=== PATIENT | female | born 1995 | race Caucasian/White ===

== ENCOUNTER 2016-08-05 18:09 | Emergency (ER) | payer BC, OTHER ==
[2016-08-05] MEDS ORDERED: HYDROmorphone 1 MG/ML 1 ML SYRINGE IVP STA ×2 (18:20→21:53)
[2016-08-05] MEDS ORDERED: SODIUM CHLORIDE 0.9% 1,000 ML IV STA (18:20)
[2016-08-05] MEDS ORDERED: ONDANSETRON 4 MG/2 ML VIAL IVP STA (18:20)
[2016-08-05 18:30] VITALS: TEMP 98.6
[2016-08-05 19:24] LABS: Basophils % (A) 0 %; CH 33.2; CHCM 34.2; Eosinophils # (A) 0.2 k/uL (0-0.7); Eosinophils % (A) 2 %; HCT 44.8 % (34.0-46.0); HDW 2.25; Luc # (Auto) 0.21; Luc % (Auto) 3; Lymphocytes # (A) 2.2 k/uL (1.0-4.8); Lymphocytes % (A) 29 %; MCH 32.6 pg (25.0-35.0); MCHC 33.5 g/dL (31.0-37.0); MCV 97.4 fL (80.0-100.0); Monocytes # (A) 0.4 k/uL (0-1.0); Monocytes % (A) 6 %; Neutrophils # (A) 4.7 k/uL (1.3-7.7); Neutrophils % (A) 61 %; RDW 12.1 % (11.5-15.5); WBC 7.7 k/uL (3.8-10.6); WBC (Perox) 7.31
[2016-08-05 19:37] LABS: ALT 50 U/L (9-52); AST 30 U/L (14-36); Alcohol <10 mg/dL; Alkaline Phosphatase 57 U/L (38-126); Anion Gap 13 mmol/L; Blood Urea Nitrogen 15 mg/dL (7-17); Calcium 9.5 mg/dL (8.4-10.2); Carbon Dioxide 19 mmol/L (22-30); Chloride 108 mmol/L (98-107); Glucose 115 mg/dL (74-99); Non-African American GFR(MDRD) >60 (>60 ml/min/1.73 sqM); Potassium 4.2 mmol/L (3.5-5.1); Sodium 140 mmol/L (137-145); Total Bilirubin 0.6 mg/dL (0.2-1.3); Total Protein 7.8 g/dL (6.3-8.2)
[2016-08-05 19:39] LABS: Partial Thromboplastin Time 22.6 sec (22.0-30.0); Prothrombin Time 10.3 sec (9.0-12.0)
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
[2016-08-05 21:27] VITALS: RESP 18
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
--- NOTE | 2016-08-05 21:47 | XR ---
EXAMINATION TYPE: XR pelvis AP view DATE OF EXAM: 08/05/2016 COMPARISON: NONE HISTORY: Pain TECHNIQUE: Single view FINDINGS: Pelvic ring is intact. Proximal femurs and hip joints are intact. Sacroiliac joints are nor mal. IMPRESSION: Normal exam. No fracture.
--- NOTE | 2016-08-05 21:48 | XR ---
EXAMINATION TYPE: XR lumbar spine 2 or 3V DATE OF EXAM: 08/05/2016 COMPARISON: NONE HISTORY: Pain TECHNIQUE: 3 views FINDINGS: Vertebra have normal spacing and alignment. Posterior elements are intact. Sacroiliac joint s are normal. IMPRESSION: Normal lumbar spine.
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
--- NOTE | 2016-08-05 21:50 | XR ---
EXAMINATION TYPE: XR chest 1V portable DATE OF EXAM: 08/05/2016 COMPARISON: 07/27/2012 HISTORY: Chest pain TECHNIQUE: Single frontal view of the chest is obtained. FINDINGS: Heart and mediastinum are normal. Lungs are clear. Diaphragm is normal. There are chest le ads. IMPRESSION: Normal chest.
[2016-08-05 22:06] VITALS: BP 137/89; PULSE 97
[2016-08-05 22:17] LABS: Appearance,Urine Turbid (Clear); Bilirubin,Urine 2+ (Negative); Glucose,Urine (UA) Negative (Negative); Ketones,Urine Negative (Negative); Leukocyte Esterase,Urine Trace (Negative); Nitrite,Urine Positive (Negative); PH, Urine 7.5 (5.0-8.0); Particle Count 12688; Protein,Urine Trace (Negative); RBC,Urine 11 /hpf (0-5); Squamous Epithelial Cell,Urine 1 /hpf (0-4); UA Billing (MACRO vs. MICRO) MICRO
== END 2016-08-05 22:59 | disposition home or self-care (01) ==
LOC: EC 18:09
DX: S16.1XXA Strain of muscle, fascia and tendon at neck level, initial encounter (principal); S06.0X1A Concussion with loss of consciousness of 30 minutes or less, initial encounter; S40.022A Contusion of left upper arm, initial encounter; M54.6 Pain in thoracic spine; M54.5 Low back pain; R11.2 Nausea with vomiting, unspecified; Z79.3 Long term (current) use of hormonal contraceptives; Z79.899 Other long term (current) drug therapy; Z88.1 Allergy status to other antibiotic agents; Z91.013 Allergy to seafood; Z91.018 Allergy to other foods; Z91.09 Other allergy status, other than to drugs and biological substances; V43.53XA Car driver injured in collision with pick-up truck in traffic accident, initial encounter; Y92.410 Unspecified street and highway as the place of occurrence of the external cause
CPT/HCPCS: 36415; 93005; 80053; 85025; 85610; 85730; 81001; 80306; 80320; 71010; 72070; 72100; 72170; 73060; 72125; 70450; 99285; 96374; 96375; 96376; 96361 ×3; J2405; J1170

== ENCOUNTER 2017-01-15 20:12 | Emergency (ER) | payer BC, OTHER ==
[2017-01-15 21:10] LABS: Amorphous Sediment,Urine Rare /hpf; Appearance,Urine Cloudy (Clear); Bacteria,Urine Rare /hpf; Bilirubin,Urine Negative (Negative); Glucose,Urine (UA) Negative (Negative); Ketones,Urine Trace (Negative); Leukocyte Esterase,Urine Large (Negative); Mucus,Urine Rare /hpf; Nitrite,Urine Negative (Negative); PH, Urine 6.5 (5.0-8.0); Particle Count 9741; Protein,Urine Trace (Negative); Specific Gravity,Urine 1.022 (1.001-1.035); Squamous Epithelial Cell,Urine 8 /hpf (0-4); UA Billing (MACRO vs. MICRO) MICRO; Urobilinogen,Urine <2.0 mg/dL (<2.0); WBC,Urine 5 /hpf (0-5)
[2017-01-15] MEDS ORDERED: SODIUM CHLORIDE 0.9% 1,000 ML IV ONE (21:11)
--- NOTE | 2017-01-15 21:12 | ED ---
General Adult HPI - General Chief complaint: Chest Pain Stated complaint: Chest Pain, Palpitations Time Seen by Provider: 01/15/17 20:40 Source: patient Mode of arrival: ambulatory Limitations: no limitations - History of Present Illness Initial comments: Patient is a 21-year-old nonsmoking female who presents to the emergency department today for evaluation of palpitations and sharp chest pain which is worse with inspiration. Patient reports that yesterday she noticed that she was very aware of her heart beat which is atypical for her, she does feel that she's been focusing on this and that today she reports it is 1 million times worse. She reports that she feels like her heart is beating irregularly, she states that she has checked her pulse by feeling her carotid pulse and feels that her pulse is irregular. This became very concerning for her and she began to feel that she is having some chest pain so she called her mother who brought her to the emergency department for evaluation. She has no per personal cardiac history, no history of PE or DVT, no known family history of coagulopathy area the patient is not a smoker she's had no recent immobilization or surgery. Patient does report a history of anxiety and panic attacks, however she states she doesn't feel that she's been anxious about anything prior to the start of these palpitations however she does admit that these palpitations are making her feel very anxious. She denies any recent URI symptoms. She denies any fevers, chills, nausea, vomiting, abdominal pain, change in bowel or bladder habits. - Related Data Home Medications Medication Instructions Recorded Confirmed Albuterol Inhaler [Ventolin 1 - 2 puff INHALATION RT-Q6H PRN 11/20/14 01/15/17 Inhaler] Albuterol Nebulized [Ventolin 2.5 mg INHALATION RT-QID PRN 08/05/16 01/15/17 Nebulized] ALPRAZolam [Xanax] 1 mg PO DAILY PRN 01/15/17 01/15/17 Altavera-28 1 tab PO HS 01/15/17 01/15/17 Allergies Allergy/AdvReac Type Severity Reaction Status Date / Time nickel Allergy Rash/Hives Verified 01/15/17 20:53 sulfamethoxazole Allergy Rash/Hives Verified 01/15/17 20:53 [From ] trimethoprim [From ] Allergy Rash/Hives Verified 01/15/17 20:53 corn AdvReac Diarrhea Verified 01/15/17 20:53 Review of Systems ROS Statement: Those systems with pertinent positive or pertinent negative responses have been documented in the HPI. ROS Other: All systems not noted in ROS Statement are negative. Constitutional: Denies: fever, chills Respiratory: Reports: dyspnea. Denies: cough, wheezes, hemoptysis, stridor Cardiovascular: Reports: chest pain, palpitations. Denies: dyspnea on exertion , orthopnea, edema, syncope Endocrine: Denies: fatigue Gastrointestinal: Denies: abdominal pain, nausea, vomiting Genitourinary: Reports: abnormal menses (Should start her menstrual cycle any time, concerned she may be ) Musculoskeletal: Denies: back pain Skin: Denies: rash, lesions Neurological: Denies: headache, weakness Psychiatric: Reports: anxiety Hematological/Lymphatic: Denies: easy bleeding, easy bruising Past Medical History Past Medical History: Asthma Additional Past Medical History / Comment(s): right ovarian cyst, collitus, R Overy twice the size as laft overy. Endomertriosis in the past and small part of uterus removed. Enlarged liver. History of Any Multi-Drug Resistant Organisms: None Reported Additional Past Surgical History / Comment(s): growth removed from right ovary and small amount of uterus remover due to pos endometrosis. Poly cycstic ovarian desease. Past Psychological History: Anxiety, Depression Smoking Status: Never smoker Past Alcohol Use History: Occasional Past Drug Use History: None Reported - Past Family History Mother Family Medical History: Asthma Father Family Medical History: Coronary Artery Disease (CAD), CVA/TIA Brother(s) Family Medical History: Asthma General Exam Limitations: no limitations General appearance: alert, in no apparent distress, anxious Head exam: Present: atraumatic, normocephalic Eye exam: Present: normal appearance, PERRL ENT exam: Present: normal exam, normal oropharynx, mucous membranes moist Neck exam: Present: normal inspection Respiratory exam: Present: normal lung sounds bilaterally, chest wall tenderness. Absent: respiratory distress, wheezes, rales, rhonchi, stridor, accessory muscle use, decreased breath sounds, prolonged expiratory Cardiovascular Exam: Present: regular rate, normal rhythm, normal heart sounds. Absent: tachycardia, irregular rhythm, systolic murmur, diastolic murmur, rubs , gallop, clicks, JVD, S3, S4 GI/Abdominal exam: Present: soft, normal bowel sounds. Absent: distended, tenderness, guarding, rebound, rigid, diminished bowel sounds, hyperactive bowel sounds, hypoactive bowel sounds Extremities exam: Present: normal inspection, full ROM, normal capillary refill. Absent: tenderness, pedal edema, joint swelling, calf tenderness Back exam: Present: normal inspection Neurological exam: Present: alert, oriented X3 Psychiatric exam: Present: anxious Skin exam: Present: warm, dry Course Vital Signs 01/15/17 01/15/17 01/15/17 20:34 21:48 23:05 Temperature 98.1 F Pulse Rate 93 77 81 Respiratory 18 16 16 Rate Blood Pressure 135/84 121/77 124/79 O2 Sat by Pulse 95 100 98 Oximetry 01/15/17 23:20 Temperature 97.9 F Pulse Rate Respiratory Rate Blood Pressure O2 Sat by Pulse Oximetry - Reevaluation(s) Reevaluation #1: Patient re-evaluated, resting comfortably. 01/15/17 23:09 Medical Decision Making - Medical Decision Making Patient was seen and evaluated, history is obtained from the patient Patient reports development of palpitations last night, progressively worsening today. Patient also has pleuritic chest pain which is worse with deep breath or coughing EKG reveals normal sinus rhythm, rate is 80, Reggie, no acute ST elevations or depressions. Of acute ischemia, infarction or arrhythmia. Patient was placed on telemetry monitoring IV access was obtained, troponin, d-dimer, TSH, CBC and BMP were ordered urinalysis urine drug screen and urine were ordered Patient Did admit to taking Xanax prior to arrival and she felt that there may be an anxiety component of her palpitations. Labs with no significant abnormalities, electrolyte abnormalities Troponin, d-dimer both negative, TSH within normal limits Chest x-ray with no acute findings Patient was reevaluated, she states that she felt palpitations and looked at the monitor, she felt that there was some irregularity on the monitor Telemetry monitoring throughout the ED stay was reviewed with no alarms or arrhythmias noted I was able to show the patient that any movement can trigger monitor alarms, patient expressed understanding of this and did admit that possibly turning over in the bed may have caused some of the abnormality that she saw the monitor. I again reassessed the patient that based on her EKG, chest x-ray and lab findings the low likelihood that she's having any acute cardiac or pulmonary cause of her palpitations. I advised her that she should avoid caffeine or any stimulants, she should practice controlled breathing and relaxation techniques, take Xanax as needed for anxiety and follow up with her primary care physician to discuss any persistent symptoms. I advised the patient and her mother bedside of the patient should return to the emergency department should she develop any worsening chest pain, shortness of breath, lightheadedness, diaphoresis or any signs or symptoms which she finds concerning. All questions pertaining care were answered to the best of my ability. Patient expressed understanding of care plan and was discharged home in stable condition. - Lab Data Result diagrams: 01/15/17 21:42 01/15/17 21:42 Lab Results 01/15/17 01/15/17 01/15/17 Range/Units 20:49 20:49 20:49 WBC (3.8-10.6) k/uL RBC (3.80-5.40) m/uL Hgb (11.4-16.0) gm/dL Hct (34.0-46.0) % MCV (80.0-100.0) fL MCH (25.0-35.0) pg MCHC (31.0-37.0) g/dL RDW (11.5-15.5) % Plt Count (150-450) k/uL Neutrophils % % Lymphocytes % % Monocytes % % Eosinophils % % Basophils % % Neutrophils # (1.3-7.7) k/uL Lymphocytes # (1.0-4.8) k/uL Monocytes # (0-1.0) k/uL Eosinophils # (0-0.7) k/uL Basophils # (0-0.2) k/uL D-Dimer (<0.60) mg/L FEU Sodium (137-145) mmol/L Potassium (3.5-5.1) mmol/L Chloride (98-107) mmol/L Carbon Dioxide (22-30) mmol/L Anion Gap mmol/L BUN (7-17) mg/dL Creatinine (0.52-1.04) mg/dL Est GFR (MDRD) Af Amer (>60 ml/min/1.73 sqM) Est GFR (MDRD) Non-Af (>60 ml/min/1.73 sqM) Glucose (74-99) mg/dL Calcium (8.4-10.2) mg/dL Magnesium (1.6-2.3) mg/dL Total Bilirubin (0.2-1.3) mg/dL AST (14-36) U/L ALT (9-52) U/L Alkaline Phosphatase (38-126) U/L Troponin I (0.000-0.034) ng/mL Total Protein (6.3-8.2) g/dL Albumin (3.5-5.0) g/dL TSH (0.465-4.680) mIU/L Urine Color Yellow Urine Appearance Cloudy H (Clear) Urine pH 6.5 (5.0-8.0) Ur Specific [place] 1.022 (1.001-1.035) Urine Protein Trace H (Negative) Urine Glucose (UA) Negative (Negative) Urine Ketones Trace H (Negative) Urine Blood Negative (Negative) Urine Nitrite Negative (Negative) Urine Bilirubin Negative (Negative) Urine Urobilinogen <2.0 (<2.0) mg/dL Ur Leukocyte Esterase Large H (Negative) Urine WBC 5 (0-5) /hpf Ur Squamous Epith Cells 8 H (0-4) /hpf Amorphous Sediment Rare H (None) /hpf Urine Bacteria Rare H (None) /hpf Urine Mucus Rare H (None) /hpf Urine HCG, Qual Not Detected (Not Detectd) Urine Opiates Screen Not Detected (NotDetected) Ur Oxycodone Screen Not Detected (NotDetected) Urine Methadone Screen Not Detected (NotDetected) Ur Propoxyphene Screen Not Detected (NotDetected) Ur Barbiturates Screen Not Detected (NotDetected) U Tricyclic Antidepress Not Detected (NotDetected) Ur Phencyclidine Scrn Not Detected (NotDetected) Ur Amphetamines Screen Not Detected (NotDetected) U Methamphetamines Scrn Not Detected (NotDetected) U Benzodiazepines Scrn Detected H (NotDetected) Urine Cocaine Screen Not Detected (NotDetected) U Marijuana (THC) Screen Not Detected (NotDetected) 01/15/17 01/15/17 01/15/17 Range/Units 21:42 21:42 21:42 WBC 7.1 (3.8-10.6) k/uL RBC 4.64 (3.80-5.40) m/uL Hgb 14.7 (11.4-16.0) gm/dL Hct 44.8 (34.0-46.0) % MCV 96.6 (80.0-100.0) fL MCH 31.6 (25.0-35.0) pg MCHC 32.8 (31.0-37.0) g/dL RDW 13.0 (11.5-15.5) % Plt Count 332 (150-450) k/uL Neutrophils % 53 % Lymphocytes % 36 % Monocytes % 6 % Eosinophils % 3 % Basophils % 1 % Neutrophils # 3.8 (1.3-7.7) k/uL Lymphocytes # 2.6 (1.0-4.8) k/uL Monocytes # 0.4 (0-1.0) k/uL Eosinophils # 0.2 (0-0.7) k/uL Basophils # 0.1 (0-0.2) k/uL D-Dimer 0.37 (<0.60) mg/L FEU Sodium 141 (137-145) mmol/L Potassium 4.5 (3.5-5.1) mmol/L Chloride 106 (98-107) mmol/L Carbon Dioxide 22 (22-30) mmol/L Anion Gap 13 mmol/L BUN 15 (7-17) mg/dL Creatinine 1.20 H (0.52-1.04) mg/dL Est GFR (MDRD) Af Amer >60 (>60 ml/min/1.73 sqM) Est GFR (MDRD) Non-Af 56 (>60 ml/min/1.73 sqM) Glucose 102 H (74-99) mg/dL Calcium 9.7 (8.4-10.2) mg/dL Magnesium 2.0 (1.6-2.3) mg/dL Total Bilirubin 0.2 (0.2-1.3) mg/dL AST 20 (14-36) U/L ALT 41 (9-52) U/L Alkaline Phosphatase 60 (38-126) U/L Troponin I (0.000-0.034) ng/mL Total Protein 7.7 (6.3-8.2) g/dL Albumin 4.5 (3.5-5.0) g/dL TSH 2.530 (0.465-4.680) mIU/L Urine Color Urine Appearance (Clear) Urine pH (5.0-8.0) Ur Specific [place] (1.001-1.035) Urine Protein (Negative) Urine Glucose (UA) (Negative) Urine Ketones (Negative) Urine Blood (Negative) Urine Nitrite (Negative) Urine Bilirubin (Negative) Urine Urobilinogen (<2.0) mg/dL Ur Leukocyte Esterase (Negative) Urine WBC (0-5) /hpf Ur Squamous Epith Cells (0-4) /hpf Amorphous Sediment (None) /hpf Urine Bacteria (None) /hpf Urine Mucus (None) /hpf Urine HCG, Qual (Not Detectd) Urine Opiates Screen (NotDetected) Ur Oxycodone Screen (NotDetected) Urine Methadone Screen (NotDetected) Ur Propoxyphene Screen (NotDetected) Ur Barbiturates Screen (NotDetected) U Tricyclic Antidepress (NotDetected) Ur Phencyclidine Scrn (NotDetected) Ur Amphetamines Screen (NotDetected) U Methamphetamines Scrn (NotDetected) U Benzodiazepines Scrn (NotDetected) Urine Cocaine Screen (NotDetected) U Marijuana (THC) Screen (NotDetected) 01/15/17 Range/Units 21:42 WBC (3.8-10.6) k/uL RBC (3.80-5.40) m/uL Hgb (11.4-16.0) gm/dL Hct (34.0-46.0) % MCV (80.0-100.0) fL MCH (25.0-35.0) pg MCHC (31.0-37.0) g/dL RDW (11.5-15.5) % Plt Count (150-450) k/uL Neutrophils % % Lymphocytes % % Monocytes % % Eosinophils % % Basophils % % Neutrophils # (1.3-7.7) k/uL Lymphocytes # (1.0-4.8) k/uL Monocytes # (0-1.0) k/uL Eosinophils # (0-0.7) k/uL Basophils # (0-0.2) k/uL D-Dimer (<0.60) mg/L FEU Sodium (137-145) mmol/L Potassium (3.5-5.1) mmol/L Chloride (98-107) mmol/L Carbon Dioxide (22-30) mmol/L Anion Gap mmol/L BUN (7-17) mg/dL Creatinine (0.52-1.04) mg/dL Est GFR (MDRD) Af Amer (>60 ml/min/1.73 sqM) Est GFR (MDRD) Non-Af (>60 ml/min/1.73 sqM) Glucose (74-99) mg/dL Calcium (8.4-10.2) mg/dL Magnesium (1.6-2.3) mg/dL Total Bilirubin (0.2-1.3) mg/dL AST (14-36) U/L ALT (9-52) U/L Alkaline Phosphatase (38-126) U/L Troponin I <0.012 (0.000-0.034) ng/mL Total Protein (6.3-8.2) g/dL Albumin (3.5-5.0) g/dL TSH (0.465-4.680) mIU/L Urine Color Urine Appearance (Clear) Urine pH (5.0-8.0) Ur Specific [place] (1.001-1.035) Urine Protein (Negative) Urine Glucose (UA) (Negative) Urine Ketones (Negative) Urine Blood (Negative) Urine Nitrite (Negative) Urine Bilirubin (Negative) Urine Urobilinogen (<2.0) mg/dL Ur Leukocyte Esterase (Negative) Urine WBC (0-5) /hpf Ur Squamous Epith Cells (0-4) /hpf Amorphous Sediment (None) /hpf Urine Bacteria (None) /hpf Urine Mucus (None) /hpf Urine HCG, Qual (Not Detectd) Urine Opiates Screen (NotDetected) Ur Oxycodone Screen (NotDetected) Urine Methadone Screen (NotDetected) Ur Propoxyphene Screen (NotDetected) Ur Barbiturates Screen (NotDetected) U Tricyclic Antidepress (NotDetected) Ur Phencyclidine Scrn (NotDetected) Ur Amphetamines Screen (NotDetected) U Methamphetamines Scrn (NotDetected) U Benzodiazepines Scrn (NotDetected) Urine Cocaine Screen (NotDetected) U Marijuana (THC) Screen (NotDetected) Disposition Clinical Impression: Palpitations, Pleuritic chest pain Disposition: HOME SELF-CARE Condition: Good Instructions: Chest Pain (ED), Costochondritis (ED) Referrals: Leyla Corbin III, MD [Primary Care Provider] - 1-2 days Time of Disposition: 23:09
--- NOTE | 2017-01-15 21:30 | XR ---
EXAMINATION TYPE: XR chest 2V DATE OF EXAM: 01/15/2017 COMPARISON: 08/05/2016 HISTORY: Chest pain TECHNIQUE: Frontal and lateral views of the chest are obtained. FINDINGS: Heart and mediastinum are normal. Lungs are clear. Diaphragm is normal. Bony thorax is int act. IMPRESSION: Normal chest. No change.
[2017-01-15 21:52] LABS: Basophils # (A) 0.1 k/uL (0-0.2); Basophils % (A) 1 %; CH 32.3; CHCM 33.6; Eosinophils # (A) 0.2 k/uL (0-0.7); Eosinophils % (A) 3 %; HCT 44.8 % (34.0-46.0); HDW 2.27; HGB 14.7 gm/dL (11.4-16.0); Luc # (Auto) 0.09; Luc % (Auto) 1; Lymphocytes # (A) 2.6 k/uL (1.0-4.8); Lymphocytes % (A) 36 %; MCH 31.6 pg (25.0-35.0); MCHC 32.8 g/dL (31.0-37.0); MCV 96.6 fL (80.0-100.0); Mean Platelet Volume 7.5; Monocytes # (A) 0.4 k/uL (0-1.0); Monocytes % (A) 6 %; Neutrophils # (A) 3.8 k/uL (1.3-7.7); Neutrophils % (A) 53 %; RBC 4.64 m/uL (3.80-5.40); WBC 7.1 k/uL (3.8-10.6); WBC (Perox) 7.35
[2017-01-15 21:54] VITALS: RESP 16
[2017-01-15 22:02] LABS: ALT 41 U/L (9-52); AST 20 U/L (14-36); Alkaline Phosphatase 60 U/L (38-126); Anion Gap 13 mmol/L; Blood Urea Nitrogen 15 mg/dL (7-17); Calcium 9.7 mg/dL (8.4-10.2); Carbon Dioxide 22 mmol/L (22-30); Chloride 106 mmol/L (98-107); Glucose 102 mg/dL (74-99); Non-African American GFR(MDRD) 56 (>60 ml/min/1.73 sqM); Potassium 4.5 mmol/L (3.5-5.1); Sodium 141 mmol/L (137-145); Total Bilirubin 0.2 mg/dL (0.2-1.3); Total Protein 7.7 g/dL (6.3-8.2)
[2017-01-15 23:08] VITALS: BP 124/79; PULSE 81
[2017-01-15 23:21] VITALS: TEMP 97.9
== END 2017-01-15 23:25 | disposition home or self-care (01) ==
LOC: EC 20:12
DX: R00.2 Palpitations (principal); R07.81 Pleurodynia; Z82.49 Family history of ischemic heart disease and other diseases of the circulatory system; Z88.1 Allergy status to other antibiotic agents; Z91.018 Allergy to other foods; Z91.048 Other nonmedicinal substance allergy status; Z79.3 Long term (current) use of hormonal contraceptives
CPT/HCPCS: 36415; 71020; 80053; 80306; 81001; 81025; 83735; 84443; 84484; 85025; 85379; 93005; 96360; 99285

== ENCOUNTER 2017-05-22 08:26 | Emergency (ER) | payer BC ==
[2017-05-22] MEDS ORDERED: METOCLOPRAMIDE 5 MG/ML 2 ML VIAL IVP STA (08:57)
[2017-05-22] MEDS ORDERED: SODIUM CHLORIDE 0.9% 1,000 ML IV ONE (08:57)
[2017-05-22 09:02] LABS: Basophils % (A) 0 %; Eosinophils # (A) 0.2 k/uL (0-0.7); Eosinophils % (A) 3 %; HCT 43.5 % (34.0-46.0); HGB 15.5 gm/dL (11.4-16.0); Lymphocytes # (A) 1.9 k/uL (1.0-4.8); Lymphocytes % (A) 27 %; MCH 31.7 pg (25.0-35.0); MCHC 35.5 g/dL (31.0-37.0); MCV 89.2 fL (80.0-100.0); Mean Platelet Volume 6.5; Monocytes # (A) 0.4 k/uL (0-1.0); Monocytes % (A) 5 %; Neutrophils # (A) 4.4 k/uL (1.3-7.7); Neutrophils % (A) 64 %; Platelet Count 293 k/uL (150-450); RBC 4.88 m/uL (3.80-5.40); RDW 11.3 % (11.5-15.5)
[2017-05-22 09:12] LABS: ALT 52 U/L (9-52); AST 26 U/L (14-36); Albumin 4.2 g/dL (3.5-5.0); Alkaline Phosphatase 65 U/L (38-126); Anion Gap 14 mmol/L; Blood Urea Nitrogen 16 mg/dL (7-17); Calcium 9.7 mg/dL (8.4-10.2); Carbon Dioxide 23 mmol/L (22-30); Chloride 107 mmol/L (98-107); Glucose 101 mg/dL (74-99); Magnesium 1.9 mg/dL (1.6-2.3); Potassium 4.6 mmol/L (3.5-5.1); Sodium 144 mmol/L (137-145); Total Bilirubin 0.6 mg/dL (0.2-1.3); Total Protein 7.4 g/dL (6.3-8.2)
[2017-05-22 09:47] LABS: Appearance,Urine Clear (Clear); Bilirubin,Urine Negative (Negative); Blood,Urine Negative (Negative); Color,Urine Yellow; Glucose,Urine (UA) Negative (Negative); Ketones,Urine Negative (Negative); Leukocyte Esterase,Urine Negative (Negative); Nitrite,Urine Negative (Negative); PH, Urine 5.5 (5.0-8.0); Protein,Urine Negative (Negative); Specific Gravity,Urine 1.022 (1.001-1.035); Urobilinogen,Urine <2.0 mg/dL (<2.0)
--- NOTE | 2017-05-22 09:47 | ED ---
General Adult HPI - General Chief complaint: Chest Pain Stated complaint: CHEST PAIN Time Seen by Provider: 05/22/17 08:37 Source: patient, RN notes reviewed Mode of arrival: ambulatory Limitations: no limitations - History of Present Illness Initial comments: This is a 22-year-old female presents emergency Department with chief complaint of near syncopal episode. Patient states that she was getting ready this morning and started feeling. Hot, flushed feeling states that she started feeling dizzy and lightheaded. Patient states that she noticed her heart was racing at that time. She does admit that she has ongoing history of palpitations has had a Holter monitor in the past. Patient denies any current chest discomfort. Patient does still feel that her heart is racing. Denies any caffeine intake. Denies any abdominal pain she does admit to some nausea no vomiting no focal weakness. Patient states she has no current blurred vision. Denies any chance . - Related Data Home Medications Medication Instructions Recorded Confirmed Altavera-28 1 tab PO HS 01/15/17 05/22/17 ALPRAZolam [Xanax] 0.5 mg PO DAILY PRN 05/22/17 05/22/17 PARoxetine [Paxil] 20 mg PO DAILY 05/22/17 05/22/17 Allergies Allergy/AdvReac Type Severity Reaction Status Date / Time nickel Allergy Rash/Hives Verified 05/22/17 08:55 sulfamethoxazole Allergy Rash/Hives Verified 05/22/17 08:55 [From ] trimethoprim [From ] Allergy Rash/Hives Verified 05/22/17 08:55 corn AdvReac Diarrhea Verified 05/22/17 08:55 Review of Systems ROS Statement: Those systems with pertinent positive or pertinent negative responses have been documented in the HPI. ROS Other: All systems not noted in ROS Statement are negative. Past Medical History Past Medical History: Asthma Additional Past Medical History / Comment(s): right ovarian cyst, collitus, R Overy twice the size as laft overy. Endomertriosis in the past and small part of uterus removed. Enlarged liver. History of Any Multi-Drug Resistant Organisms: None Reported Additional Past Surgical History / Comment(s): growth removed from right ovary and small amount of uterus remover due to pos endometrosis. Poly cycstic ovarian desease. Past Psychological History: Anxiety, Depression Smoking Status: Never smoker Past Alcohol Use History: Occasional Past Drug Use History: None Reported - Past Family History Mother Family Medical History: Asthma Father Family Medical History: Coronary Artery Disease (CAD), CVA/TIA Brother(s) Family Medical History: Asthma General Exam Limitations: no limitations General appearance: alert, in no apparent distress Head exam: Present: atraumatic, normocephalic, normal inspection Eye exam: Present: normal appearance, PERRL, EOMI. Absent: scleral icterus, conjunctival injection, periorbital swelling ENT exam: Present: normal exam, normal oropharynx, mucous membranes moist, TM's normal bilaterally, normal external ear exam Neck exam: Present: normal inspection, full ROM. Absent: tenderness, meningismus, lymphadenopathy Respiratory exam: Present: normal lung sounds bilaterally. Absent: respiratory distress, wheezes, rales, rhonchi, stridor Cardiovascular Exam: Present: regular rate, normal rhythm, normal heart sounds. Absent: systolic murmur, diastolic murmur, rubs, gallop, clicks GI/Abdominal exam: Present: soft, normal bowel sounds. Absent: distended, tenderness, guarding, rebound, rigid Course Vital Signs 05/22/17 05/22/17 05/22/17 08:28 09:27 09:28 Temperature 98.6 F Pulse Rate 106 H Respiratory 20 Rate Blood Pressure 130/89 Blood Pressure 123/83 [Left Arm Sitting] Blood Pressure 122/78 [Left Arm Standing] Blood Pressure 122/84 [Left Arm Supine] O2 Sat by Pulse 98 Oximetry EKG Findings - EKG Comments: EKG Findings:: EKG performed at 8:41 normal sinus rhythm with rate 99. Her 1: 30 QRS 76 QT/QTC 344/441 Medical Decision Making - Medical Decision Making 22-year-old female presents emergency department for admission some palpitations. Patient EKG, lab work reviewed no acute abnormality. Patient had near syncopal episode most likely related to vasovagal. Patient will follow -up with PCP for palpitations consider Holter monitor versus event monitor and further workup. - Lab Data Result diagrams: 05/22/17 08:52 05/22/17 08:52 Lab Results 05/22/17 05/22/17 05/22/17 Range/Units 08:52 08:52 08:52 WBC 7.0 (3.8-10.6) k/uL RBC 4.88 (3.80-5.40) m/uL Hgb 15.5 (11.4-16.0) gm/dL Hct 43.5 (34.0-46.0) % MCV 89.2 (80.0-100.0) fL MCH 31.7 (25.0-35.0) pg MCHC 35.5 (31.0-37.0) g/dL RDW 11.3 L (11.5-15.5) % Plt Count 293 (150-450) k/uL Neutrophils % 64 % Lymphocytes % 27 % Monocytes % 5 % Eosinophils % 3 % Basophils % 0 % Neutrophils # 4.4 (1.3-7.7) k/uL Lymphocytes # 1.9 (1.0-4.8) k/uL Monocytes # 0.4 (0-1.0) k/uL Eosinophils # 0.2 (0-0.7) k/uL Basophils # 0.0 (0-0.2) k/uL Sodium 144 (137-145) mmol/L Potassium 4.6 (3.5-5.1) mmol/L Chloride 107 (98-107) mmol/L Carbon Dioxide 23 (22-30) mmol/L Anion Gap 14 mmol/L BUN 16 (7-17) mg/dL Creatinine 0.53 (0.52-1.04) mg/dL Est GFR (CKD-EPI)AfAm >90 (>60 ml/min/1.73 sqM) Est GFR (CKD-EPI)NonAf >90 (>60 ml/min/1.73 sqM) Glucose 101 H (74-99) mg/dL Calcium 9.7 (8.4-10.2) mg/dL Magnesium 1.9 (1.6-2.3) mg/dL Total Bilirubin 0.6 (0.2-1.3) mg/dL AST 26 (14-36) U/L ALT 52 (9-52) U/L Alkaline Phosphatase 65 (38-126) U/L Troponin I <0.012 (0.000-0.034) ng/mL Total Protein 7.4 (6.3-8.2) g/dL Albumin 4.2 (3.5-5.0) g/dL Urine Color Urine Appearance (Clear) Urine pH (5.0-8.0) Ur Specific [place] (1.001-1.035) Urine Protein (Negative) Urine Glucose (UA) (Negative) Urine Ketones (Negative) Urine Blood (Negative) Urine Nitrite (Negative) Urine Bilirubin (Negative) Urine Urobilinogen (<2.0) mg/dL Ur Leukocyte Esterase (Negative) Urine HCG, Qual (Not Detectd) 05/22/17 05/22/17 Range/Units 09:35 09:35 WBC (3.8-10.6) k/uL RBC (3.80-5.40) m/uL Hgb (11.4-16.0) gm/dL Hct (34.0-46.0) % MCV (80.0-100.0) fL MCH (25.0-35.0) pg MCHC (31.0-37.0) g/dL RDW (11.5-15.5) % Plt Count (150-450) k/uL Neutrophils % % Lymphocytes % % Monocytes % % Eosinophils % % Basophils % % Neutrophils # (1.3-7.7) k/uL Lymphocytes # (1.0-4.8) k/uL Monocytes # (0-1.0) k/uL Eosinophils # (0-0.7) k/uL Basophils # (0-0.2) k/uL Sodium (137-145) mmol/L Potassium (3.5-5.1) mmol/L Chloride (98-107) mmol/L Carbon Dioxide (22-30) mmol/L Anion Gap mmol/L BUN (7-17) mg/dL Creatinine (0.52-1.04) mg/dL Est GFR (CKD-EPI)AfAm (>60 ml/min/1.73 sqM) Est GFR (CKD-EPI)NonAf (>60 ml/min/1.73 sqM) Glucose (74-99) mg/dL Calcium (8.4-10.2) mg/dL Magnesium (1.6-2.3) mg/dL Total Bilirubin (0.2-1.3) mg/dL AST (14-36) U/L ALT (9-52) U/L Alkaline Phosphatase (38-126) U/L Troponin I (0.000-0.034) ng/mL Total Protein (6.3-8.2) g/dL Albumin (3.5-5.0) g/dL Urine Color Yellow Urine Appearance Clear (Clear) Urine pH 5.5 (5.0-8.0) Ur Specific [place] 1.022 (1.001-1.035) Urine Protein Negative (Negative) Urine Glucose (UA) Negative (Negative) Urine Ketones Negative (Negative) Urine Blood Negative (Negative) Urine Nitrite Negative (Negative) Urine Bilirubin Negative (Negative) Urine Urobilinogen <2.0 (<2.0) mg/dL Ur Leukocyte Esterase Negative (Negative) Urine HCG, Qual Not Detected (Not Detectd) Disposition Clinical Impression: Vasovagal near syncope, Palpitations Disposition: HOME SELF-CARE Condition: Stable Instructions: Palpitations (ED), Near Syncope (ED) Additional Instructions: Please return to the Emergency Department if symptoms worsen or any other concerns. Referrals: Leyla Corbin III, MD [Primary Care Provider] - 1-2 days Time of Disposition: 10:22
--- NOTE | 2017-05-22 10:14 | XR ---
EXAMINATION TYPE: XR chest 2V DATE OF EXAM: 05/22/2017 COMPARISON: Chest x-ray January 15, 2017. HISTORY: History of asthma presents with chest pain and cough for 3 days. TECHNIQUE: Frontal and lateral views of the chest are obtained. FINDINGS: There is no focal air space opacity, pleural effusion, or pneumothorax seen. The cardiac silhouette size is within normal limits. The osseous structures are intact. IMPRESSION: No acute cardiopulmonary process. No significant change from prior.
[2017-05-22 10:22] LABS: Cocaine Screen,Urine Not Detected (NotDetected); Phencyclidine Screen,Urine Not Detected (NotDetected); Urn Cannabinoid Scrn Not Detected (NotDetected)
[2017-05-22 10:23] LABS: Amphetamine Screen,Urine Not Detected (NotDetected); Barbiturate Screen,Urine Not Detected (NotDetected); Benzodiazepines Screen,Urine Detected (NotDetected); Methadone Screen, Urine Not Detected (NotDetected); Opiate Screen,Urine Not Detected (NotDetected); Oxycodone Screen, Urine Not Detected (NotDetected); Tricyclic Antidepressant,Urine Not Detected (NotDetected)
[2017-05-22 10:40] VITALS: BP 125/81; PULSE 89; RESP 16; TEMP 98.5
== END 2017-05-22 10:40 | disposition home or self-care (01) ==
LOC: EC 08:26
DX: R00.2 Palpitations (principal); R55 Syncope and collapse; Z87.42 Personal history of other diseases of the female genital tract; Z88.1 Allergy status to other antibiotic agents; Z88.2 Allergy status to sulfonamides; Z91.048 Other nonmedicinal substance allergy status; Z79.3 Long term (current) use of hormonal contraceptives; Z79.899 Other long term (current) drug therapy
CPT/HCPCS: 99285; 96374; 96361; 36415; 93005; 80053; 83735; 84484; 85025; 81003; 81025; 80306; 71046; J2765

== ENCOUNTER → 2017-05-31 | Outpatient (CLI) | payer BC ==
--- NOTE | 2017-06-01 08:28 | MM ---
Reason for exam: clinical finding. Baseline mammogram. History: Patient is nulliparous. Family history of breast cancer in grandmother and breast cancer in paternal aunt. Taking hormonal contraceptives for 8 years. Physical Findings: Nurse Summary: 0.5cm nodule in the right breast at 12 o'clock, 0.5cm nodule in the left breast at 8 o'clock and 10 o'clock (nurse ts). MG Diagnostic Mammo w CAD GIL Bilateral CC and MLO view(s) were taken. The breast tissue is heterogeneously dense. This may lower the sensitivity of mammography. These results were verbally communicated with the patient and result sheet given to the patient on 05/31/17. ASSESSMENT: Benign, BI-RAD 2 RECOMMENDATION: Clinical management of both breasts. Manage patient on a clinical basis.
--- NOTE | 2017-06-01 08:29 | USB ---
Reason for exam: clinical finding. History: Patient is nulliparous. Family history of breast cancer in grandmother and breast cancer in paternal aunt. Taking hormonal contraceptives for 8 years. US Breast Limited BILAT Right breast ultrasound demonstrates no cystic or solid lesion seen greaster than 0.50cm. Left breast ultrasound demonstrates no cystic or solid lesion seen greaster than 0.50cm. These results were verbally communicated with the patient and result sheet given to the patient on 05/31/17. ASSESSMENT: Negative, BI-RAD 1 RECOMMENDATION: Clinical management of both breasts. Manage patient on a clinical basis.
== END | disposition home or self-care (01) ==
LOC: RADMAMWWP 14:35
PROVIDERS: ATTEND Family Medicine
DX: N64.4 Mastodynia (principal)
CPT/HCPCS: 77066

== ENCOUNTER 2017-06-28 19:50 | Emergency (ER) | payer BC ==
[2017-06-28] MEDS ORDERED: SODIUM CHLORIDE 0.9% 1,000 ML IV STA (20:32)
[2017-06-28] MEDS ORDERED: ONDANSETRON ODT 4 MG TAB PO STA (20:32)
[2017-06-28] MEDS ORDERED: DICYCLOMINE 10 MG/ML 2 ML AMP IM STA (20:33)
[2017-06-28] MEDS ORDERED: PANTOPRAZOLE 40 MG/10 ML VIAL IVP STA (20:35)
--- NOTE | 2017-06-28 20:35 | ED ---
General Adult HPI - General Chief complaint: GI Bleed Stated complaint: abdominal pain/diarrhea-senty by [email or web address] Time Seen by Provider: 06/28/17 20:25 Source: patient, RN notes reviewed Mode of arrival: ambulatory Limitations: no limitations - History of Present Illness Initial comments: 22-year-old female presented to the emergency room today with chief complaint of abdominal pain with diarrhea over the last 2 days. Patient does admit to cramping left lower side. Does admit to dark bowel movements. Was at urgent care and was sent here to the emergency room for further evaluation. Patient states some cramping on left side of the abdomen. Admits to history of IBS but states it does feel different. Patient states several loose bombers been trying to stay hydrated with Gatorade. She does admit to feeling nauseated no vomiting. Denies any clots or symptoms. Patient denies any recent fever, chills , shortness of breath, chest pain, back pain, numbness or tingling, dysuria or hematuria, headaches or visual changes, or any other complaints. - Related Data Home Medications Medication Instructions Recorded Confirmed Altavera-28 1 tab PO HS 01/15/17 06/28/17 ALPRAZolam [Xanax] 1 mg PO HS PRN 06/28/17 06/28/17 Albuterol Inhaler [Ventolin Hfa 2 puff INHALATION RT-Q6H PRN 06/28/17 06/28/17 Inhaler] Albuterol Nebulized [Ventolin 2.5 mg INHALATION RT-Q6H PRN 06/28/17 06/28/17 Nebulized] Previous Rx's Medication Instructions Recorded Dicyclomine [Bentyl] 20 mg PO QID #20 tablet 06/28/17 Ondansetron Odt [Zofran ODT] 4 mg PO Q8HR PRN #20 tab 06/28/17 Allergies Allergy/AdvReac Type Severity Reaction Status Date / Time nickel Allergy Rash/Hives Verified 06/28/17 20:44 sulfamethoxazole Allergy Rash/Hives Verified 06/28/17 20:44 [From ] trimethoprim [From ] Allergy Rash/Hives Verified 06/28/17 20:44 corn AdvReac Diarrhea Verified 06/28/17 20:44 Review of Systems ROS Statement: Those systems with pertinent positive or pertinent negative responses have been documented in the HPI. ROS Other: All systems not noted in ROS Statement are negative. Past Medical History Past Medical History: Asthma Additional Past Medical History / Comment(s): right ovarian cyst, collitus, R Overy twice the size as laft overy. Endomertriosis in the past and small part of uterus removed. Enlarged liver. History of Any Multi-Drug Resistant Organisms: None Reported Additional Past Surgical History / Comment(s): growth removed from right ovary and small amount of uterus remover due to pos endometrosis. Poly cycstic ovarian desease. Past Psychological History: Anxiety, Depression Smoking Status: Never smoker Past Alcohol Use History: Occasional Past Drug Use History: None Reported - Past Family History Mother Family Medical History: Asthma Father Family Medical History: Coronary Artery Disease (CAD), CVA/TIA Brother(s) Family Medical History: Asthma General Exam - General Exam Comments Initial Comments: General: The patient is awake and alert, in no distress, and does not appear acutely ill. Eye: Pupils are equal, round and reactive to light, extra-ocular movements are intact. No nystagmus. There is normal conjunctiva bilaterally. No signs of icterus. Ears, nose, mouth and throat: There are moist mucous membranes and no oral lesions. Neck: The neck is supple, there is no tenderness or JVD. Cardiovascular: There is a regular rate and rhythm. No murmur, rub or gallop is appreciated. Respiratory: Lungs are clear to auscultation, respirations are non-labored, breath sounds are equal. No wheezes, stridor, rales, or rhonchi. Gastrointestinal: I'm and soft on palpation. Mild tenderness left lower quadrant. Mildly tender in epigastric. No rebound tenderness. No guarding. No CVA tenderness. Musculoskeletal: Normal ROM, no tenderness. Strength 5/5. Sensation intact. Pulses equal bilaterally 2+. Neurological: A&O x 3. CN II-XII intact, There are no obvious motor or sensory deficits. Coordination appears grossly intact. Speech is normal. Skin: Skin is warm and dry and no rashes or lesions are noted. Psychiatric: Cooperative, appropriate mood & affect, normal judgment. : [employer] Mccallum present for exam. No sign hemorrhoid. Normal Rectal tone with no obvious bright red blood per rectum. Limitations: no limitations Course Vital Signs 06/28/17 20:20 Temperature 99 F Pulse Rate 110 H Respiratory 18 Rate Blood Pressure 137/84 O2 Sat by Pulse 98 Oximetry Medical Decision Making - Medical Decision Making Patient reexamined at this time shows no signs of distress. Patient's resting comfortably. Patient does admit to feeling better after fluids and medication here in emergency room. Patient's labs been reviewed unremarkable. Patient's x -ray is negative for any acute abnormality. Patient requesting testing for celiac disease. This is sent out. Patient will be discharged home with nausea medication and also Bentyl for her symptoms. Advised close follow-up over the next 1-2 days return here to emergency room if symptoms increase worsen. Patient states understanding. - Lab Data Result diagrams: 06/28/17 20:48 06/28/17 20:48 Lab Results 06/28/17 06/28/17 06/28/17 Range/Units 20:48 20:48 20:48 WBC 4.7 (3.8-10.6) k/uL RBC 4.47 (3.80-5.40) m/uL Hgb 13.6 (11.4-16.0) gm/dL Hct 39.0 (34.0-46.0) % MCV 87.1 (80.0-100.0) fL MCH 30.3 (25.0-35.0) pg MCHC 34.8 (31.0-37.0) g/dL RDW 11.6 (11.5-15.5) % Plt Count 275 (150-450) k/uL Neutrophils % 50 % Lymphocytes % 34 % Monocytes % 11 % Eosinophils % 2 % Basophils % 0 % Neutrophils # 2.3 (1.3-7.7) k/uL Lymphocytes # 1.6 (1.0-4.8) k/uL Monocytes # 0.5 (0-1.0) k/uL Eosinophils # 0.1 (0-0.7) k/uL Basophils # 0.0 (0-0.2) k/uL PT (9.0-12.0) sec INR (<1.2) APTT (22.0-30.0) sec Sodium 143 (137-145) mmol/L Potassium 4.0 (3.5-5.1) mmol/L Chloride 109 H (98-107) mmol/L Carbon Dioxide 19 L (22-30) mmol/L Anion Gap 15 mmol/L BUN 14 (7-17) mg/dL Creatinine 0.54 (0.52-1.04) mg/dL Est GFR (CKD-EPI)AfAm >90 (>60 ml/min/1.73 sqM) Est GFR (CKD-EPI)NonAf >90 (>60 ml/min/1.73 sqM) Glucose 86 (74-99) mg/dL Calcium 9.1 (8.4-10.2) mg/dL Total Bilirubin 0.4 (0.2-1.3) mg/dL AST 24 (14-36) U/L ALT 31 (9-52) U/L Alkaline Phosphatase 70 (38-126) U/L Total Protein 6.7 (6.3-8.2) g/dL Albumin 4.1 (3.5-5.0) g/dL Amylase 47 (30-110) U/L Lipase 94 (23-300) U/L Urine Color Urine Appearance (Clear) Urine pH (5.0-8.0) Ur Specific [place] (1.001-1.035) Urine Protein (Negative) Urine Glucose (UA) (Negative) Urine Ketones (Negative) Urine Blood (Negative) Urine Nitrite (Negative) Urine Bilirubin (Negative) Urine Urobilinogen (<2.0) mg/dL Ur Leukocyte Esterase (Negative) Urine HCG, Qual Not Detected (Not Detectd) Stool Occult Blood (Negative) 06/28/17 06/28/17 06/28/17 Range/Units 20:48 20:48 20:48 WBC (3.8-10.6) k/uL RBC (3.80-5.40) m/uL Hgb (11.4-16.0) gm/dL Hct (34.0-46.0) % MCV (80.0-100.0) fL MCH (25.0-35.0) pg MCHC (31.0-37.0) g/dL RDW (11.5-15.5) % Plt Count (150-450) k/uL Neutrophils % % Lymphocytes % % Monocytes % % Eosinophils % % Basophils % % Neutrophils # (1.3-7.7) k/uL Lymphocytes # (1.0-4.8) k/uL Monocytes # (0-1.0) k/uL Eosinophils # (0-0.7) k/uL Basophils # (0-0.2) k/uL PT 10.1 (9.0-12.0) sec INR 1.0 (<1.2) APTT 22.2 (22.0-30.0) sec Sodium (137-145) mmol/L Potassium (3.5-5.1) mmol/L Chloride (98-107) mmol/L Carbon Dioxide (22-30) mmol/L Anion Gap mmol/L BUN (7-17) mg/dL Creatinine (0.52-1.04) mg/dL Est GFR (CKD-EPI)AfAm (>60 ml/min/1.73 sqM) Est GFR (CKD-EPI)NonAf (>60 ml/min/1.73 sqM) Glucose (74-99) mg/dL Calcium (8.4-10.2) mg/dL Total Bilirubin (0.2-1.3) mg/dL AST (14-36) U/L ALT (9-52) U/L Alkaline Phosphatase (38-126) U/L Total Protein (6.3-8.2) g/dL Albumin (3.5-5.0) g/dL Amylase (30-110) U/L Lipase (23-300) U/L Urine Color Yellow Urine Appearance Clear (Clear) Urine pH 6.0 (5.0-8.0) Ur Specific [place] 1.021 (1.001-1.035) Urine Protein Negative (Negative) Urine Glucose (UA) Negative (Negative) Urine Ketones Negative (Negative) Urine Blood Negative (Negative) Urine Nitrite Negative (Negative) Urine Bilirubin Negative (Negative) Urine Urobilinogen <2.0 (<2.0) mg/dL Ur Leukocyte Esterase Negative (Negative) Urine HCG, Qual (Not Detectd) Stool Occult Blood Negative (Negative) Disposition Clinical Impression: Acute diarrhea Disposition: HOME SELF-CARE Condition: Good Instructions: Acute Diarrhea (ED) Additional Instructions: Please use medication as discussed. Please follow-up with family doctor in the next 2 days of symptoms have not improved. Please return to emergency room if the symptoms increase or worsen or for any other concerns. Prescriptions: Dicyclomine [Bentyl] 20 mg PO QID #20 tablet Ondansetron Odt [Zofran ODT] 4 mg PO Q8HR PRN #20 tab PRN Reason: Nausea Is patient prescribed a controlled substance at d/c from ED?: No Referrals: Leyla Corbin III, MD [Primary Care Provider] - 1-2 days Time of Disposition: 22:09
[2017-06-28 21:10] LABS: Appearance,Urine Clear (Clear); Bilirubin,Urine Negative (Negative); Blood,Urine Negative (Negative); Color,Urine Yellow; Glucose,Urine (UA) Negative (Negative); Ketones,Urine Negative (Negative); Leukocyte Esterase,Urine Negative (Negative); Nitrite,Urine Negative (Negative); Protein,Urine Negative (Negative); Specific Gravity,Urine 1.021 (1.001-1.035); Urobilinogen,Urine <2.0 mg/dL (<2.0)
[2017-06-28 21:18] LABS: Partial Thromboplastin Time 22.2 sec (22.0-30.0); Prothrombin Time 10.1 sec (9.0-12.0)
[2017-06-28 21:28] LABS: Basophils % (A) 0 %; Eosinophils # (A) 0.1 k/uL (0-0.7); Eosinophils % (A) 2 %; HGB 13.6 gm/dL (11.4-16.0); Lymphocytes # (A) 1.6 k/uL (1.0-4.8); Lymphocytes % (A) 34 %; MCH 30.3 pg (25.0-35.0); MCHC 34.8 g/dL (31.0-37.0); MCV 87.1 fL (80.0-100.0); Monocytes # (A) 0.5 k/uL (0-1.0); Monocytes % (A) 11 %; Neutrophils # (A) 2.3 k/uL (1.3-7.7); Neutrophils % (A) 50 %; Platelet Count 275 k/uL (150-450); RBC 4.47 m/uL (3.80-5.40); RDW 11.6 % (11.5-15.5); WBC 4.7 k/uL (3.8-10.6)
[2017-06-28 21:30] LABS: ALT 31 U/L (9-52); AST 24 U/L (14-36); Albumin 4.1 g/dL (3.5-5.0); Alkaline Phosphatase 70 U/L (38-126); Amylase 47 U/L (30-110); Anion Gap 15 mmol/L; Blood Urea Nitrogen 14 mg/dL (7-17); Calcium 9.1 mg/dL (8.4-10.2); Carbon Dioxide 19 mmol/L (22-30); Chloride 109 mmol/L (98-107); Glucose 86 mg/dL (74-99); Lipase 94 U/L (23-300); Sodium 143 mmol/L (137-145); Total Bilirubin 0.4 mg/dL (0.2-1.3); Total Protein 6.7 g/dL (6.3-8.2)
--- NOTE | 2017-06-28 21:56 | XR ---
EXAMINATION TYPE: XR KUB - 2V DATE OF EXAM: 06/28/2017 COMPARISON: 04/24/2012 HISTORY: Pain, with nausea and diarrhea TECHNIQUE: 2 upright AP views FINDINGS: Visualized lung bases and pleural spaces are negative. Bowel gas pattern is normal. No pneumoperitoneum or pneumatosis. Soft tissues and skeletal structures are unremarkable. IMPRESSION: Negative examination.
[2017-06-28 22:28] VITALS: BP 124/75; PULSE 113; RESP 17; TEMP 98.1
[2017-06-29 12:28] LABS: Gliadin AB IgA, Unit 1.4 U/mL
== END 2017-06-28 22:28 | disposition home or self-care (01) ==
LOC: EC 19:50
DX: R19.7 Diarrhea, unspecified (principal); R11.0 Nausea; R10.32 Left lower quadrant pain; R10.13 Epigastric pain; J45.909 Unspecified asthma, uncomplicated; Z79.3 Long term (current) use of hormonal contraceptives; Z88.8 Allergy status to other drugs, medicaments and biological substances; Z91.018 Allergy to other foods
CPT/HCPCS: 99285; 96374; 96361; 96372; 36415; 80053; 82150; 83690; 85025; 85610; 85730; 82272; 81003; 81025; 83516 ×4; 74018; J0500; C9113

== ENCOUNTER 2017-08-28 22:52 | Emergency (ER) | payer BC, OTHER ==
[2017-08-28] MEDS ORDERED: ASPIRIN 81 MG PO STA (23:24)
--- NOTE | 2017-08-28 23:30 | ED ---
Chest Pain HPI - General Chief Complaint: Chest Pain Stated Complaint: Chest pain Time Seen by Provider: 08/28/17 23:06 Source: patient Mode of arrival: ambulatory Limitations: no limitations - History of Present Illness Initial Comments: This patient is a 22-year-old woman with history of hyperthyroidism, who presents to be evaluated for left-sided chest pains that been going on intermittently for 2-3 weeks. She states that initially the pain was intermittent, but over the past few days has been more constant. She indicates the left anterior chest and states it feels like someone is squeezing her. She has not noted any worsening or relieving factors. She has not noted any associated symptoms. She states the pain is moderate intensity. Patient declines analgesia at initial history and physical. MD Complaint: chest pain Onset/Timin -: week(s) Onset: during rest Pain Location: left chest Pain Radiation: LUE Severity: moderate Quality: tightness Consistency: intermittent Improves With: nothing Worsens With: nothing Treatments Prior to Arrival: none - Related Data On Oral Contraceptives: Yes Home Medications Medication Instructions Recorded Confirmed Altavera-28 1 tab PO HS 01/15/17 08/28/17 ALPRAZolam [Xanax] 1 mg PO HS PRN 06/28/17 08/28/17 Albuterol Inhaler [Ventolin Hfa 2 puff INHALATION RT-Q6H PRN 06/28/17 08/28/17 Inhaler] Albuterol Nebulized [Ventolin 2.5 mg INHALATION RT-Q6H PRN 06/28/17 08/28/17 Nebulized] Allergies Allergy/AdvReac Type Severity Reaction Status Date / Time nickel Allergy Rash/Hives Verified 08/28/17 22:58 sulfamethoxazole Allergy Rash/Hives Verified 08/28/17 22:58 [From ] trimethoprim [From ] Allergy Rash/Hives Verified 08/28/17 22:58 corn AdvReac Diarrhea Verified 08/28/17 22:58 Review of Systems ROS Statement: Those systems with pertinent positive or pertinent negative responses have been documented in the HPI. ROS Other: All systems not noted in ROS Statement are negative. Constitutional: Denies: fever, weakness Respiratory: Denies: cough, dyspnea, wheezes, hemoptysis Cardiovascular: Reports: chest pain. Denies: palpitations, dyspnea on exertion , edema, syncope Gastrointestinal: Denies: abdominal pain, nausea, vomiting Musculoskeletal: Denies: back pain Skin: Denies: rash Neurological: Denies: headache, weakness Hematological/Lymphatic: Denies: easy bleeding EKG Findings - EKG Results: EKG: interpreted by ERNESTO GARNER, sinus rhythm (Sinus bradycardia with sinus arrhythmia rate approximately 57 bpm.), normal axis, normal QRS, normal ST/T EKG shows: bradycardia Past Medical History Past Medical History: Asthma Additional Past Medical History / Comment(s): right ovarian cyst, collitus, R Overy twice the size as laft overy. Endomertriosis in the past and small part of uterus removed. Enlarged liver. Graves disease. History of Any Multi-Drug Resistant Organisms: None Reported Additional Past Surgical History / Comment(s): growth removed from right ovary and small amount of uterus remover due to pos endometrosis. Poly cycstic ovarian desease. Past Psychological History: Anxiety, Depression Smoking Status: Never smoker Past Alcohol Use History: Occasional Past Drug Use History: None Reported - Past Family History Mother Family Medical History: Asthma Father Family Medical History: Coronary Artery Disease (CAD), CVA/TIA Brother(s) Family Medical History: Asthma General Exam Limitations: no limitations General appearance: alert, in no apparent distress Head exam: Present: atraumatic, normocephalic Eye exam: Present: normal appearance. Absent: scleral icterus, conjunctival injection ENT exam: Present: normal oropharynx Neck exam: Present: normal inspection, full ROM Respiratory exam: Present: normal lung sounds bilaterally. Absent: respiratory distress, wheezes, rales, rhonchi, stridor Cardiovascular Exam: Present: regular rate (Rate 60 at my exam), normal rhythm, normal heart sounds. Absent: systolic murmur, diastolic murmur, rubs, gallop GI/Abdominal exam: Present: soft. Absent: distended, tenderness, guarding, rebound, mass Extremities exam: Present: normal inspection, normal capillary refill. Absent: pedal edema, calf tenderness Back exam: Present: normal inspection. Absent: CVA tenderness (R), CVA tenderness (L) Neurological exam: Present: alert Skin exam: Present: warm, dry, intact, normal color. Absent: rash Course Vital Signs 08/28/17 08/29/17 22:54 01:21 Temperature 98.6 F 98.2 F Pulse Rate 83 79 Respiratory 16 18 Rate Blood Pressure 123/76 126/71 O2 Sat by Pulse 100 98 Oximetry Chest Pain MDM - MDM This patient is 22-year-old woman with some atypical chest pains that are going on intermittently 2-3 weeks though constant for the past few days. The workup here is negative other than the x-ray showing some lymphadenopathy. Given the patient's Graves disease, and the fact that there is occasionally some lymphadenopathy associated, will have the patient follow with her music sound light technician to see if they would like computed tomography scan for further evaluation of the lymphadenopathy. Discussed this in detail with the patient and mother. All questions answered. Further follow-up and return parameters discussed. Disposition Clinical Impression: Chest pain Disposition: HOME SELF-CARE Condition: Good Instructions: Chest Pain (ED) Additional Instructions: As we discussed, follow up with your music sound light technician to see if they want to arrange a CAT scan to further characterize the enlarged lymph nodes visualized on the x-ray. Return here immediately should any of the additional symptoms we discussed develop. Is patient prescribed a controlled substance at d/c from ED?: No Referrals: Leyla Corbin III, MD [Primary Care Provider] - 1-2 days
--- NOTE | 2017-08-28 23:53 | XR ---
EXAMINATION TYPE: XR chest 2V DATE OF EXAM: 08/28/2017 COMPARISON: 05/22/2017 HISTORY: Chest pain TECHNIQUE: Frontal and lateral views of the chest are obtained. FINDINGS: Heart and mediastinum appear normal. There is some bulkiness of the pulmonary stevenson. Lungs are clear of infiltrate. There is no pleural effusion. Bony thorax is intact. IMPRESSION: Mild prominence of the pulmonary stevenson that are increased compared to old exam. This is c onsistent with mild bronchial adenopathy.
[2017-08-29 00:07] LABS: Basophils % (A) 1 %; Eosinophils # (A) 0.2 k/uL (0-0.7); Eosinophils % (A) 3 %; HCT 43.4 % (34.0-46.0); HGB 14.6 gm/dL (11.4-16.0); Lymphocytes # (A) 2.1 k/uL (1.0-4.8); Lymphocytes % (A) 28 %; MCHC 33.8 g/dL (31.0-37.0); Mean Platelet Volume 6.8; Monocytes # (A) 0.4 k/uL (0-1.0); Monocytes % (A) 6 %; Neutrophils # (A) 4.4 k/uL (1.3-7.7); Neutrophils % (A) 61 %; Platelet Count 316 k/uL (150-450); RBC 4.88 m/uL (3.80-5.40); WBC 7.3 k/uL (3.8-10.6)
[2017-08-29 00:16] LABS: ALT 47 U/L (9-52); AST 21 U/L (14-36); Albumin 4.5 g/dL (3.5-5.0); Alkaline Phosphatase 63 U/L (38-126); Anion Gap 13 mmol/L; Blood Urea Nitrogen 25 mg/dL (7-17); Calcium 9.4 mg/dL (8.4-10.2); Carbon Dioxide 22 mmol/L (22-30); Chloride 105 mmol/L (98-107); Glucose 94 mg/dL (74-99); Magnesium 2.1 mg/dL (1.6-2.3); Potassium 4.4 mmol/L (3.5-5.1); Sodium 140 mmol/L (137-145); Total Bilirubin 0.3 mg/dL (0.2-1.3); Total Protein 7.3 g/dL (6.3-8.2)
[2017-08-29 00:21] LABS: D-Dimer 0.35 mg/L FEU (<0.60); INR 1.1 (<1.2); Partial Thromboplastin Time 22.9 sec (22.0-30.0); Prothrombin Time 10.3 sec (9.0-12.0)
[2017-08-29 00:32] LABS: Creatine Kinase 67 U/L (30-135)
[2017-08-29 00:45] LABS: Creatine Kinase MB 0.3 ng/mL (0.0-2.4); Troponin I <0.012 ng/mL (0.000-0.034)
[2017-08-29] MEDS ORDERED: SODIUM CHLORIDE 0.9% 500 ML IV STA (01:08)
[2017-08-29 01:11] LABS: T4, Free (Free Thyroxine) 0.45 ng/dL (0.78-2.19)
[2017-08-29 01:22] VITALS: BP 126/71; PULSE 79; RESP 18; TEMP 98.2
== END 2017-08-29 01:55 | disposition home or self-care (01) ==
LOC: EC 22:52
DX: R07.89 Other chest pain (principal); R59.1 Generalized enlarged lymph nodes; J45.909 Unspecified asthma, uncomplicated; Z79.3 Long term (current) use of hormonal contraceptives; Z91.018 Allergy to other foods; Z88.8 Allergy status to other drugs, medicaments and biological substances; Z91.09 Other allergy status, other than to drugs and biological substances; Z53.8 Procedure and treatment not carried out for other reasons
CPT/HCPCS: 36415; 71046; 80053; 82550; 82553; 83735; 84439; 84443; 84484; 85025; 85379; 85610; 85730; 93005; 99285

== ENCOUNTER 2019-10-08 07:08 | Emergency (ER) | payer BC, OTHER ==
--- NOTE | 2019-10-08 07:38 | ED ---
Female Urogenital HPI - General Source: patient, RN notes reviewed, old records reviewed Mode of arrival: ambulatory Limitations: no limitations <Nellie Mckeon - Last Filed: 10/08/19 09:21> <Joy Vallejo - Last Filed: 10/10/19 01:44> - General Chief complaint: Vaginal Bleeding Stated complaint: Vaginal Bleeding, 8 wks preg Time Seen by Provider: 10/08/19 07:24 - History of Present Illness Initial comments: Patient is a 24-year-old female. She reports that she is proximally 8 weeks . She presents emergency department today for concerns for heavier vaginal bleeding for the past 12 hours. She reports that she noticed some vaginal bleeding and spotting after having intercourse on Monday. Patient states that she has a mild cramping pain. She reports her [employer] is Dr. Kendall at [facility]. (Nellie Mckeon) - Related Data Home Medications Medication Instructions Recorded Confirmed Altavera-28 1 tab PO HS 01/15/17 08/28/17 ALPRAZolam [Xanax] 1 mg PO HS PRN 06/28/17 08/28/17 Albuterol Inhaler (Mhu) [Ventolin 2 puff INHALATION RT-Q6H PRN 06/28/17 08/28/17 Hfa Inhaler] Albuterol Nebulized [Ventolin 2.5 mg INHALATION RT-Q6H PRN 06/28/17 08/28/17 Nebulized] Allergies Allergy/AdvReac Type Severity Reaction Status Date / Time nickel Allergy Rash/Hives Verified 10/08/19 07:20 sulfamethoxazole Allergy Rash/Hives Verified 10/08/19 07:20 [From Septra] trimethoprim [From Octra] Allergy Rash/Hives Verified 10/08/19 07:20 corn AdvReac Diarrhea Verified 10/08/19 07:20 Review of Systems ROS Other: All systems not noted in ROS Statement are negative. <Nellie Mckeon - Last Filed: 10/08/19 09:21> ROS Other: All systems not noted in ROS Statement are negative. <Joy Vallejo - Last Filed: 10/10/19 01:44> ROS Statement: Those systems with pertinent positive or pertinent negative responses have been documented in the HPI. Past Medical History Past Medical History: Asthma Additional Past Medical History / Comment(s): right ovarian cyst, collitus, R Overy twice the size as laft overy. Endomertriosis in the past and small part of uterus removed. Enlarged liver. Graves disease. mitral valve regugitation History of Any Multi-Drug Resistant Organisms: None Reported Additional Past Surgical History / Comment(s): growth removed from right ovary and small amount of uterus remover due to pos endometrosis. Poly cycstic ovarian desease. Past Psychological History: Anxiety, Depression Smoking Status: Never smoker Past Alcohol Use History: None Reported Past Drug Use History: None Reported - Past Family History Mother Family Medical History: Asthma Father Family Medical History: Coronary Artery Disease (CAD), CVA/TIA Brother(s) Family Medical History: Asthma <Nellie Mckeon - Last Filed: 10/08/19 09:21> General Exam Limitations: no limitations General appearance: alert, in no apparent distress Head exam: Present: atraumatic, normocephalic, normal inspection Eye exam: Present: normal appearance, PERRL, EOMI. Absent: scleral icterus, conjunctival injection, periorbital swelling ENT exam: Present: normal exam Neck exam: Present: normal inspection. Absent: tenderness, meningismus, lymphadenopathy Respiratory exam: Present: normal lung sounds bilaterally. Absent: respiratory distress, wheezes, rales, rhonchi, stridor Cardiovascular Exam: Present: regular rate, normal rhythm, normal heart sounds. Absent: systolic murmur, diastolic murmur, rubs, gallop, clicks GI/Abdominal exam: Present: soft, normal bowel sounds. Absent: distended, tenderness, guarding, rebound, rigid External exam: Present: normal external exam Speculum exam: Present: normal speculum exam, vaginal bleeding (faint vaginal bleeding, no large clots. Cervix is closed. No adnexal tenderness). Absent: vaginal discharge, cervical discharge Extremities exam: Present: normal inspection, full ROM, normal capillary refill. Absent: tenderness, pedal edema, joint swelling, calf tenderness Back exam: Present: normal inspection Neurological exam: Present: alert, oriented X3, CN II-XII intact <Nellie Mckeon - Last Filed: 10/08/19 09:21> - General Exam Comments Initial Comments: 24-year-old female. Alert and oriented 3. No acute distress. (Josselyn Mckeonily) Course Vital Signs 10/08/19 10/08/19 07:17 10:29 Temperature 98.8 F 97.5 F L Pulse Rate 89 88 Respiratory 18 16 Rate Blood Pressure 140/94 116/87 O2 Sat by Pulse 98 100 Oximetry Medical Decision Making - Lab Data Result diagrams: 10/08/19 07:41 - Radiology Data Radiology results: report reviewed <Nellie Mckeon - Last Filed: 10/08/19 09:21> - Lab Data Result diagrams: 10/08/19 07:41 <Joy Vallejo - Last Filed: 10/10/19 01:44> - Medical Decision Making 24-year-old female presents to the emergency department today for concern for vaginal bleeding. She reports she is early in . This is her first . Her hCG is 53,000. Ultrasound today shows viable IUP measuring 6 weeks and 2 days. Heart tones were 1 18 bpm. She did have some vaginal bleeding scantly on exam. No clots. Patient is Rh- blood type. Will be administered RhoGAM. Ultrasound did show a small subchorionic hemorrhage related to patient's bleeding. I advised Patient to follow-up with her [employer]. Discussed return parameters. Discussed no heavy lifting and no intercourse until [employer] follow-up (Nellie Mckeon) I was available for consultation in the emergency department. The history and physical exam were done by the midlevel provider. I was consulted for this patients care. I reviewed the case with the midlevel provider and based on their presentation of the patient, I agree with the assessment, medical decision making and plan of care as documented. Chart was dictated using [employer] dictation software. Attempts were made to correct any dictation errors however some typographical errors may persist. Patient was seen during a national state of emergency due to the Covid-19 pandemic. (Joy Vallejo) - Lab Data Lab Results 10/08/19 10/08/19 10/08/19 Range/Units 07:41 07:41 07:50 WBC 8.7 (3.8-10.6) k/uL RBC 4.60 (3.80-5.40) m/uL Hgb 14.7 (11.4-16.0) gm/dL Hct 43.9 (34.0-46.0) % MCV 95.3 (80.0-100.0) fL MCH 31.9 (25.0-35.0) pg MCHC 33.5 (31.0-37.0) g/dL RDW 11.8 (11.5-15.5) % Plt Count 321 (150-450) k/uL Neutrophils % 68 % Lymphocytes % 25 % Monocytes % 4 % Eosinophils % 2 % Basophils % 1 % Neutrophils # 5.9 (1.3-7.7) k/uL Lymphocytes # 2.1 (1.0-4.8) k/uL Monocytes # 0.3 (0-1.0) k/uL Eosinophils # 0.2 (0-0.7) k/uL Basophils # 0.1 (0-0.2) k/uL HCG, Quant mIU/mL Urine Color Urine Appearance (Clear) Urine pH (5.0-8.0) Ur Specific [place] (1.001-1.035) Urine Protein (Negative) Urine Glucose (UA) (Negative) Urine Ketones (Negative) Urine Blood (Negative) Urine Nitrite (Negative) Urine Bilirubin (Negative) Urine Urobilinogen (<2.0) mg/dL Ur Leukocyte Esterase (Negative) Urine RBC (0-5) /hpf Urine WBC (0-5) /hpf Ur Squamous Epith Cells (0-4) /hpf Urine Bacteria (None) /hpf Urine Mucus (None) /hpf Urine HCG, Qual (Not Detectd) Chlamydia Source Chlamydia DNA (PCR) (Neg,Equiv) N. gonorrhoeae Source N.gonorrhoeae DNA Probe (Neg,Equiv) Trichomonas Ag (Rapid) (Negative) Blood Type O Negative Blood Type Confirm Blood Type Recheck No Previous Record Bld Type Recheck Status CABO Indicated Antibody Screen NEGATIVE 10/08/19 10/08/19 10/08/19 Range/Units 07:56 09:19 09:20 WBC (3.8-10.6) k/uL RBC (3.80-5.40) m/uL Hgb (11.4-16.0) gm/dL Hct (34.0-46.0) % MCV (80.0-100.0) fL MCH (25.0-35.0) pg MCHC (31.0-37.0) g/dL RDW (11.5-15.5) % Plt Count (150-450) k/uL Neutrophils % % Lymphocytes % % Monocytes % % Eosinophils % % Basophils % % Neutrophils # (1.3-7.7) k/uL Lymphocytes # (1.0-4.8) k/uL Monocytes # (0-1.0) k/uL Eosinophils # (0-0.7) k/uL Basophils # (0-0.2) k/uL HCG, Quant 93278.4 mIU/mL Urine Color Yellow Urine Appearance Clear (Clear) Urine pH 6.0 (5.0-8.0) Ur Specific [place] 1.016 (1.001-1.035) Urine Protein Negative (Negative) Urine Glucose (UA) Negative (Negative) Urine Ketones Negative (Negative) Urine Blood Moderate H (Negative) Urine Nitrite Negative (Negative) Urine Bilirubin Negative (Negative) Urine Urobilinogen <2.0 (<2.0) mg/dL Ur Leukocyte Esterase Trace H (Negative) Urine RBC 1 (0-5) /hpf Urine WBC 3 (0-5) /hpf Ur Squamous Epith Cells 1 (0-4) /hpf Urine Bacteria Occasional H (None) /hpf Urine Mucus Rare H (None) /hpf Urine HCG, Qual (Not Detectd) Chlamydia Source Chlamydia DNA (PCR) (Neg,Equiv) N. gonorrhoeae Source N.gonorrhoeae DNA Probe (Neg,Equiv) Trichomonas Ag (Rapid) Negative (Negative) Blood Type Blood Type Confirm Blood Type Recheck Bld Type Recheck Status Antibody Screen 10/08/19 10/08/19 10/08/19 Range/Units 09:20 09:20 09:32 WBC (3.8-10.6) k/uL RBC (3.80-5.40) m/uL Hgb (11.4-16.0) gm/dL Hct (34.0-46.0) % MCV (80.0-100.0) fL MCH (25.0-35.0) pg MCHC (31.0-37.0) g/dL RDW (11.5-15.5) % Plt Count (150-450) k/uL Neutrophils % % Lymphocytes % % Monocytes % % Eosinophils % % Basophils % % Neutrophils # (1.3-7.7) k/uL Lymphocytes # (1.0-4.8) k/uL Monocytes # (0-1.0) k/uL Eosinophils # (0-0.7) k/uL Basophils # (0-0.2) k/uL HCG, Quant mIU/mL Urine Color Urine Appearance (Clear) Urine pH (5.0-8.0) Ur Specific [place] (1.001-1.035) Urine Protein (Negative) Urine Glucose (UA) (Negative) Urine Ketones (Negative) Urine Blood (Negative) Urine Nitrite (Negative) Urine Bilirubin (Negative) Urine Urobilinogen (<2.0) mg/dL Ur Leukocyte Esterase (Negative) Urine RBC (0-5) /hpf Urine WBC (0-5) /hpf Ur Squamous Epith Cells (0-4) /hpf Urine Bacteria (None) /hpf Urine Mucus (None) /hpf Urine HCG, Qual Detected (Not Detectd) Chlamydia Source Vagina Chlamydia DNA (PCR) Negative (Neg,Equiv) N. gonorrhoeae Source Vagina N.gonorrhoeae DNA Probe Negative (Neg,Equiv) Trichomonas Ag (Rapid) (Negative) Blood Type Blood Type Confirm O Negative Blood Type Recheck Bld Type Recheck Status Antibody Screen - Radiology Data Ultrasound shows single viable intrauterine with ultrasound age is 6 weeks and 2 days. Suspect a small subchorionic hemorrhage. There is a minimal amount of free fluid in the pelvis. Heart rate was 118 beats were minute. (Nellie Mckeon) Disposition Is patient prescribed a controlled substance at d/c from ED?: No Time of Disposition: 09:24 <Nellie Mckeon - Last Filed: 10/08/19 09:21> <Joy Vallejo - Last Filed: 10/10/19 01:44> Clinical Impression: 6 weeks gestation of , Subchorionic bleed Disposition: HOME SELF-CARE Condition: Good Instructions (If sedation given, give patient instructions): Subchorionic Hemorrhage (ED) Additional Instructions: Please follow up with OBGYN doctor if symptoms have not improved over the next two days. No lifiting or intercourse until cleard by OBGYN. Please return to the emergency room if your symptoms increase or worsen or for any other concerns. Referrals: Larisa Titus MD [Primary Care Provider] - 1-2 days
[2019-10-08 08:04] LABS: Basophils # (A) 0.1 k/uL (0-0.2); Basophils % (A) 1 %; Eosinophils # (A) 0.2 k/uL (0-0.7); Eosinophils % (A) 2 %; HCT 43.9 % (34.0-46.0); HGB 14.7 gm/dL (11.4-16.0); Lymphocytes # (A) 2.1 k/uL (1.0-4.8); Lymphocytes % (A) 25 %; MCH 31.9 pg (25.0-35.0); MCHC 33.5 g/dL (31.0-37.0); MCV 95.3 fL (80.0-100.0); Monocytes # (A) 0.3 k/uL (0-1.0); Monocytes % (A) 4 %; Neutrophils # (A) 5.9 k/uL (1.3-7.7); Neutrophils % (A) 68 %; Platelet Count 321 k/uL (150-450); RDW 11.8 % (11.5-15.5); WBC 8.7 k/uL (3.8-10.6)
--- NOTE | 2019-10-08 09:00 | US ---
EXAMINATION TYPE: Transabdominal and transvaginal OB US DATE OF EXAM: 10/08/2019 8:43 AM COMPARISON: NONE CLINICAL HISTORY: pain. Vaginal bleeding x 3 days; , endometriosis EXAM PERFORMED: Transvaginal (TV) and Transabdominal (TA), endovaginal scanning performed for better evaluation of the EXAM MEASUREMENTS: GESTATIONAL AGE / DATING Physician Established: Not yet established Dates by LMP: (7 weeks/3 days) EDC: 05/23/2020 Dates by First Scan: No previous. Dates by Current Scan for: (6 weeks/ 2 days) EDC: 05/31/2020 MATERNAL ANATOMY Uterus: 8.1 x 4.8 x 3.6cm Right Ovary: 2.7 x 2.7 x 2.3cm Left Ovary: 1.5 x 2.0 x 1.3cm Post CDS / Adnexa: small amount of free fluid seen medial to right ovary = 2.3 x 1.4 x 0.9 x 0.523 = 1.5ml and is wnl. Presence of corpus luteal cyst: in right ovary = 1.7 x 1.5 x 1.8cm Presence of subchorionic bleed: yes, inferior subchorionic area is hypoechoic = 0.5 x 0.7 x 0.6cm GESTATION / SURVEY CRL: 0.5cm (6 weeks/2 days) Yolk Sac (normal less than 6mm): 2.7mm Heart Rate: 118 bpm Rhythm: Normal IUP: Single, live IUP Date of LMP: 08/17/2019 Beta HcG (if available): NA IMPRESSION: Single viable intrauterine corresponding to ultrasound age 6 weeks 2 days with estimated da te of delivery 05/31/2020. Suspect a small subchorionic hemorrhage. There is a minimal amount of free f luid in the pelvis.
[2019-10-08] MEDS ORDERED: Rhogam IMMUNE GLOBULIN 1,500 UNIT/1 ML IM ONE (09:19)
[2019-10-08 09:47] LABS: Appearance,Urine Clear (Clear); Bacteria,Urine Occasional /hpf; Bilirubin,Urine Negative (Negative); Blood,Urine Moderate (Negative); Color,Urine Yellow; Glucose,Urine (UA) Negative (Negative); Ketones,Urine Negative (Negative); Leukocyte Esterase,Urine Trace (Negative); Mucus,Urine Rare /hpf; Nitrite,Urine Negative (Negative); Protein,Urine Negative (Negative); RBC,Urine 1 /hpf (0-5); Specific Gravity,Urine 1.016 (1.001-1.035); Squamous Epithelial Cell,Urine 1 /hpf (0-4); Urobilinogen,Urine <2.0 mg/dL (<2.0); WBC,Urine 3 /hpf (0-5)
[2019-10-08 10:30] VITALS: BP 116/87; PULSE 88; RESP 16; TEMP 97.5
[2019-10-09 16:07] LABS: C. trachomatis,PCR Negative (Neg,Equiv); Chlamydia trachomatis Source Vagina; N. gonorrhoeae,PCR Negative (Neg,Equiv); Neisseria Source Vagina
== END 2019-10-08 10:39 | disposition home or self-care (01) ==
LOC: EC 07:08
DX: O20.9 Hemorrhage in early pregnancy, unspecified (principal)
CPT/HCPCS: 36415; 86900; 86901; 85025; 86850; 81001; 81025; 84702; 87808; 87491; 87591; 87070; 76801; 76817; 99284; 96372; J2791

== ENCOUNTER 2019-10-22 17:51 | Emergency (ER) | payer OTHER ==
[2019-10-22 18:07] VITALS: TEMP 98.2
[2019-10-22] MEDS ORDERED: SODIUM CHLORIDE 0.9% 1,000 ML IV STA (18:10)
--- NOTE | 2019-10-22 18:11 | ED ---
Chest Pain HPI - General Chief Complaint: Chest Pain Stated Complaint: chest pain Time Seen by Provider: 10/22/19 18:09 Source: patient, RN notes reviewed, old records reviewed Mode of arrival: ambulatory Limitations: no limitations - History of Present Illness Initial Comments: Is a 24-year-old female DF for evaluation regards to chest pain patient is . Patient coming in with left-sided chest pain on the left arm. Symptoms have been going on since prior she does have history of mitral valve prolapse makes her scared. Patient is taking down the arm left- sided chest pain and again has been going on for weeks to months. Symptoms may be a little worse today she missed some increased anxiety over the symptoms. Otherwise no abdominal pain no vaginal bleeding or discharge no urinary deficits no fevers cough or congestion no shortness of breath MD Complaint: chest pain (Left-sided left arm) -: month(s) Onset: awoke with symptoms Pain Location: left chest Pain Radiation: LUE Severity: mild Severity scale (1-10): 3 Quality: sharp Consistency: intermittent Improves With: nothing Worsens With: nothing Other Symptoms: palpitations Treatments Prior to Arrival: none - Related Data Home Medications Medication Instructions Recorded Confirmed Altavera-28 1 tab PO HS 01/15/17 08/28/17 ALPRAZolam [Xanax] 1 mg PO HS PRN 06/28/17 08/28/17 Albuterol Inhaler (Mhu) [Ventolin 2 puff INHALATION RT-Q6H PRN 06/28/17 08/28/17 Hfa Inhaler] Albuterol Nebulized [Ventolin 2.5 mg INHALATION RT-Q6H PRN 06/28/17 08/28/17 Nebulized] Allergies Allergy/AdvReac Type Severity Reaction Status Date / Time nickel Allergy Rash/Hives Verified 10/22/19 18:06 sulfamethoxazole Allergy Rash/Hives Verified 10/22/19 18:06 [From Septra] trimethoprim [From Septra] Allergy Rash/Hives Verified 10/22/19 18:06 corn AdvReac Diarrhea Verified 10/22/19 18:06 Review of Systems ROS Statement: Those systems with pertinent positive or pertinent negative responses have been documented in the HPI. ROS Other: All systems not noted in ROS Statement are negative. EKG Findings - EKG Comments: EKG Findings:: EKG is sinus rhythm 82 NV 146 QRS 78 QTc 432 Past Medical History Past Medical History: Asthma Additional Past Medical History / Comment(s): right ovarian cyst, collitus, R Overy twice the size as laft overy. Endomertriosis in the past and small part of uterus removed. Enlarged liver. Graves disease. mitral valve regugitation. History of Any Multi-Drug Resistant Organisms: None Reported Past Surgical History: Appendectomy Additional Past Surgical History / Comment(s): growth removed from right ovary and small amount of uterus remover due to pos endometrosis. Poly cycstic ovarian desease. Past Psychological History: Anxiety, Depression Smoking Status: Never smoker Past Alcohol Use History: None Reported Past Drug Use History: None Reported - Past Family History Mother Family Medical History: Asthma Father Family Medical History: Coronary Artery Disease (CAD), CVA/TIA Brother(s) Family Medical History: Asthma General Exam Limitations: no limitations General appearance: alert, in no apparent distress Head exam: Present: atraumatic, normocephalic, normal inspection Eye exam: Present: normal appearance, PERRL, EOMI. Absent: scleral icterus, conjunctival injection, periorbital swelling ENT exam: Present: normal exam, mucous membranes moist Neck exam: Present: normal inspection. Absent: tenderness, meningismus, lymphadenopathy Respiratory exam: Present: normal lung sounds bilaterally. Absent: respiratory distress, wheezes, rales, rhonchi, stridor Cardiovascular Exam: Present: regular rate, normal rhythm, normal heart sounds. Absent: systolic murmur, diastolic murmur, rubs, gallop, clicks GI/Abdominal exam: Present: soft, normal bowel sounds. Absent: distended, tenderness, guarding, rebound, rigid Extremities exam: Present: normal inspection, full ROM, normal capillary refill. Absent: tenderness, pedal edema, joint swelling, calf tenderness Back exam: Present: normal inspection Neurological exam: Present: alert, oriented X3, CN II-XII intact Psychiatric exam: Present: normal affect, normal mood Skin exam: Present: warm, dry, intact, normal color. Absent: rash Course Vital Signs 10/22/19 10/22/19 18:04 20:19 Temperature 98.2 F Pulse Rate 92 97 Respiratory 18 16 Rate Blood Pressure 136/90 118/86 O2 Sat by Pulse 100 97 Oximetry - Reevaluation(s) Reevaluation #1: Medical record is reviewed Patient is without significant symptoms here in the ER feels improved Spoke patient regarding findings, questions answered Patient feels comfortable with discharge Chest Pain MDM - MDM 24 female DF for evaluation patient Dese for evaluation regards to atypical chest pain. Normal studies here in the ER, patient feels at least with findings and okay for discharge home Disposition Clinical Impression: Atypical chest pain, Chest pain Disposition: HOME SELF-CARE Condition: Good Instructions (If sedation given, give patient instructions): Chest Pain (ED) Is patient prescribed a controlled substance at d/c from ED?: No Referrals: Larisa Titus MD [Primary Care Provider] - 1-2 days
[2019-10-22 18:53] LABS: Basophils % (A) 0 %; Eosinophils # (A) 0.2 k/uL (0-0.7); Eosinophils % (A) 2 %; HCT 38.1 % (34.0-46.0); Lymphocytes # (A) 2.9 k/uL (1.0-4.8); Lymphocytes % (A) 25 %; MCH 32.7 pg (25.0-35.0); MCHC 34.2 g/dL (31.0-37.0); MCV 95.7 fL (80.0-100.0); Mean Platelet Volume 6.9; Monocytes # (A) 0.5 k/uL (0-1.0); Monocytes % (A) 4 %; Neutrophils # (A) 7.9 k/uL (1.3-7.7); Neutrophils % (A) 67 %; Platelet Count 312 k/uL (150-450); RBC 3.98 m/uL (3.80-5.40); RDW 11.9 % (11.5-15.5); WBC 11.8 k/uL (3.8-10.6)
[2019-10-22 18:56] LABS: Appearance,Urine Clear (Clear); Bacteria,Urine Moderate /hpf; Bilirubin,Urine Negative (Negative); Blood,Urine Negative (Negative); Color,Urine Yellow; Glucose,Urine (UA) Negative (Negative); Ketones,Urine Negative (Negative); Leukocyte Esterase,Urine Moderate (Negative); Mucus,Urine Few /hpf; Nitrite,Urine Negative (Negative); Protein,Urine Negative (Negative); RBC,Urine 2 /hpf (0-5); Specific Gravity,Urine 1.029 (1.001-1.035); Squamous Epithelial Cell,Urine 3 /hpf (0-4); Urobilinogen,Urine <2.0 mg/dL (<2.0); WBC,Urine 5 /hpf (0-5)
[2019-10-22 19:01] LABS: INR 0.9 (<1.2); Partial Thromboplastin Time 22.9 sec (22.0-30.0); Prothrombin Time 9.8 sec (9.0-12.0)
[2019-10-22 19:09] LABS: ALT 15 U/L (4-34); AST 19 U/L (14-36); African American GFR (CKD) >90 (>60 ml/min/1.73 sqM); Albumin 4.4 g/dL (3.5-5.0); Alkaline Phosphatase 52 U/L (38-126); Anion Gap 8 mmol/L; Blood Urea Nitrogen 14 mg/dL (7-17); Calcium 9.4 mg/dL (8.4-10.2); Carbon Dioxide 21 mmol/L (22-30); Chloride 106 mmol/L (98-107); Creatine Kinase 43 U/L (30-135); Glucose 83 mg/dL (74-99); Non-African American GFR(CKD) >90 (>60 ml/min/1.73 sqM); Potassium 4.2 mmol/L (3.5-5.1); Sodium 135 mmol/L (137-145); Total Bilirubin 0.3 mg/dL (0.2-1.3); Total Protein 7.1 g/dL (6.3-8.2)
[2019-10-22 19:20] LABS: Creatine Kinase MB <0.2 ng/mL (0.0-2.4); Troponin I <0.012 ng/mL (0.000-0.034)
--- NOTE | 2019-10-22 19:20 | XR ---
EXAMINATION TYPE: XR chest 2V DATE OF EXAM: 10/22/2019 COMPARISON: 08/28/17 HISTORY: Chest pain TECHNIQUE: Frontal and lateral views of the chest are obtained. FINDINGS: There is no focal air space opacity. No evidence for pneumothorax. No pleural effusion. The cardiac silhouette size is within normal limits. The osseous structures are grossly intact. IMPRESSION: 1. No acute cardiopulmonary process.
[2019-10-22] MEDS ORDERED: ACETAMINOPHEN TAB 500 MG TAB PO STA (20:07)
[2019-10-22] MEDS ORDERED: diphenhydrAMINE 50 MG/ML 1 ML VIAL IVP STA (20:09)
[2019-10-22 20:27] VITALS: BP 118/86; PULSE 97; RESP 16
== END 2019-10-22 20:27 | disposition home or self-care (01) ==
LOC: EC 17:51
DX: R07.89 Other chest pain (principal); R00.2 Palpitations; J45.909 Unspecified asthma, uncomplicated; F41.9 Anxiety disorder, unspecified; F32.9 Major depressive disorder, single episode, unspecified; Z79.899 Other long term (current) drug therapy; Z88.2 Allergy status to sulfonamides; Z91.018 Allergy to other foods; Z91.048 Other nonmedicinal substance allergy status
CPT/HCPCS: 36415; 93005; 83880; 80053; 82550; 82553; 83690; 83735; 84484; 85025; 85610; 85730; 81001; 71046; 99285; 96374; 96361; J1200

== ENCOUNTER 2019-12-07 20:41 | Emergency (ER) | payer OTHER ==
[2019-12-07] MEDS ORDERED: METOCLOPRAMIDE 5 MG/ML 2 ML VIAL IVP STA (21:08)
[2019-12-07] MEDS ORDERED: SODIUM CHLORIDE 0.9% 1,500 ML IV STA (21:08)
[2019-12-07] MEDS ORDERED: MORPHINE SULFATE 2 MG/ML SYRINGE IVP STA (21:08)
[2019-12-07] MEDS ORDERED: diphenhydrAMINE 50 MG/ML 1 ML VIAL IVP STA (21:08)
[2019-12-07 21:53] LABS: Basophils # (A) 0.1 k/uL (0-0.2); Basophils % (A) 1 %; Eosinophils # (A) 0.2 k/uL (0-0.7); Eosinophils % (A) 2 %; HCT 36.4 % (34.0-46.0); HGB 12.7 gm/dL (11.4-16.0); Lymphocytes # (A) 2.3 k/uL (1.0-4.8); Lymphocytes % (A) 25 %; MCH 33.7 pg (25.0-35.0); MCV 96.4 fL (80.0-100.0); Mean Platelet Volume 6.9; Monocytes # (A) 0.5 k/uL (0-1.0); Monocytes % (A) 5 %; Neutrophils # (A) 6.1 k/uL (1.3-7.7); Neutrophils % (A) 67 %; Platelet Count 278 k/uL (150-450); RBC 3.78 m/uL (3.80-5.40); RDW 12.3 % (11.5-15.5); WBC 9.2 k/uL (3.8-10.6)
[2019-12-07 21:56] LABS: Amorphous Sediment,Urine Rare /hpf; Appearance,Urine Cloudy (Clear); Bacteria,Urine Many /hpf; Bilirubin,Urine Negative (Negative); Blood,Urine Negative (Negative); Color,Urine Yellow; Glucose,Urine (UA) Negative (Negative); Ketones,Urine Trace (Negative); Leukocyte Esterase,Urine Trace (Negative); Mucus,Urine Rare /hpf; Nitrite,Urine Negative (Negative); PH, Urine 6.5 (5.0-8.0); Protein,Urine Negative (Negative); RBC,Urine 7 /hpf (0-5); Specific Gravity,Urine 1.018 (1.001-1.035); Squamous Epithelial Cell,Urine <1 /hpf (0-4); Urobilinogen,Urine <2.0 mg/dL (<2.0); WBC,Urine 4 /hpf (0-5)
[2019-12-07 22:03] LABS: ALT 15 U/L (4-34); AST 19 U/L (14-36); African American GFR (CKD) >90 (>60 ml/min/1.73 sqM); Albumin 4.5 g/dL (3.5-5.0); Alkaline Phosphatase 53 U/L (38-126); Anion Gap 9 mmol/L; Blood Urea Nitrogen 10 mg/dL (7-17); Calcium 9.8 mg/dL (8.4-10.2); Carbon Dioxide 22 mmol/L (22-30); Chloride 106 mmol/L (98-107); Glucose 123 mg/dL (74-99); Non-African American GFR(CKD) >90 (>60 ml/min/1.73 sqM); Sodium 137 mmol/L (137-145); Total Bilirubin 0.3 mg/dL (0.2-1.3); Total Protein 7.2 g/dL (6.3-8.2)
--- NOTE | 2019-12-07 22:38 | US ---
EXAMINATION TYPE: US kidneys/renal and bladder DATE OF EXAM: 12/07/2019 COMPARISON: NONE CLINICAL HISTORY: flank pain. left flank pain, patient 15 weeks EXAM MEASUREMENTS: Right Kidney: 10.4 x 4.2 x 4.4 cm Left Kidney: 9.8 x 5.4 x 4.9 cm Right Kidney: renal pelvis fullness Left Kidney: renal pelvis fullness Bladder: not fully distended Bilateral Jets seen: no IMPRESSION: There is mild bilateral hydronephrosis. There is possible left side ureteral jet. No renal mass. No sign of a renal calculus.
--- NOTE | 2019-12-08 00:04 | US ---
EXAMINATION TYPE: US OB >= 14 wk fetus DATE OF EXAM: 12/07/2019 COMPARISON: None CLINICAL HISTORY: Abd pain pelvic pain, nausea TECHNIQUE: Transabdominal (TA) GESTATIONAL AGE / DATING Physician Established: Not yet established Dates by LMP: (16 weeks/0 days) EDC: 05/23/20 Dates by First Scan: (14 weeks/6 days) EDC: 05/31/20 Dates by Current Scan: (15 weeks/6 days) EDC: 05/24/20 SURVEY IUP: Single PLACENTA: Anterior/fundal PREVIA: No Previa SHAYAN: 8.8 cm lower end of normal CERVICAL LENGTH (transabdominal: norm > 3.0cm): 3.3 cm BIOMETRY PRESENTATION: Breech LIE: Transverse with head maternal RT BPD: 3.2 cm 16 weeks / 0 days HC: 11.7 cm 15 weeks / 6 days AC: 9.7 cm 15 weeks / 6 days FL: 1.9 cm 15 weeks / 4 days ESTIMATED WEIGHT IN GRAMS: 131 grams ESTIMATED WEIGHT IN LBS/OZ: 0 lbs. 5 oz. WEIGHT PERCENTAGE BASED ON ESTABLISHED DATES: 21% HC/AC: 1.21 Normal FL/AC: 19% Normal HEART RATE: 144 bpm RHYTHM: Normal IMPRESSION: The ultrasound gestational age is 15 weeks and 6 days. The SAURAV is 05/24/2020. There is satisfactory fe norbert growth compared to the previous exam of 10/08/2019 which gave an SAURAV of 05/31/2020.
[2019-12-08 00:38] VITALS: BP 117/82; PULSE 95; RESP 19; TEMP 98.1
--- NOTE | 2019-12-08 00:38 | ED ---
Abdominal Pain HPI - General Chief Complaint: Abdominal Pain Stated Complaint: 15 wks - Nausea, Abd Pain Time Seen by Provider: 12/07/19 20:52 Source: patient Mode of arrival: ambulatory Limitations: no limitations - History of Present Illness Initial Comments: 24-year-old female presents to the emergency department this evening with complaints of nausea and left flank pain radiating to the suprapubic region, sudden onset 1 hour prior to arrival. Patient states she has a history of kidney stones and states this pain feels similar to previous episodes. Patient is 15 weeks ; . Denies any vaginal bleeding, hematuria, or dysur ia. Patient also denies any recent rash, fever, chills, cough, shortness of breath, chest pain, vomiting, diarrhea, constipation, back pain, numbness, tingling, dizziness, weakness, urinary urgency, urinary frequency, headache, visual changes, or any other complaints. - Related Data Home Medications Medication Instructions Recorded Confirmed Altavera-28 1 tab PO HS 01/15/17 08/28/17 ALPRAZolam [Xanax] 1 mg PO HS PRN 06/28/17 08/28/17 Albuterol Inhaler (Mhu) [Ventolin 2 puff INHALATION RT-Q6H PRN 06/28/17 08/28/17 Hfa Inhaler] Albuterol Nebulized [Ventolin 2.5 mg INHALATION RT-Q6H PRN 06/28/17 08/28/17 Nebulized] Allergies Allergy/AdvReac Type Severity Reaction Status Date / Time nickel Allergy Rash/Hives Verified 12/07/19 20:56 sulfamethoxazole Allergy Rash/Hives Verified 12/07/19 20:56 [From ] trimethoprim [From ] Allergy Rash/Hives Verified 12/07/19 20:56 corn AdvReac Diarrhea Verified 12/07/19 20:56 Review of Systems ROS Statement: Those systems with pertinent positive or pertinent negative responses have been documented in the HPI. ROS Other: All systems not noted in ROS Statement are negative. Past Medical History Past Medical History: Asthma Additional Past Medical History / Comment(s): right ovarian cyst, collitus, R Overy twice the size as laft overy. Endomertriosis in the past and small part of uterus removed. Enlarged liver. Graves disease. mitral valve regugitation. History of Any Multi-Drug Resistant Organisms: None Reported Past Surgical History: Appendectomy Additional Past Surgical History / Comment(s): growth removed from right ovary and small amount of uterus remover due to pos endometrosis. Poly cycstic ovarian desease. Past Psychological History: Anxiety, Depression Smoking Status: Never smoker Past Alcohol Use History: None Reported Past Drug Use History: None Reported - Past Family History Mother Family Medical History: Asthma Father Family Medical History: Coronary Artery Disease (CAD), CVA/TIA Brother(s) Family Medical History: Asthma General Exam Limitations: no limitations General appearance: alert, in no apparent distress, other (well-developed, well- nourished female in no acute distress. Initial temperature 98.3 F, pulse 124, r espirations 18, blood pressure 136/81, pulse ox 97% on room air.) Respiratory exam: Present: normal lung sounds bilaterally. Absent: respiratory distress, wheezes, rales, rhonchi, stridor Cardiovascular Exam: Present: regular rate, normal rhythm, normal heart sounds. Absent: systolic murmur, diastolic murmur, rubs, gallop, clicks GI/Abdominal exam: Present: soft, tenderness (Mild left lower quadrant abdominal tenderness upon palpation), normal bowel sounds. Absent: distended, guarding, rebound, rigid Back exam: Present: normal inspection, CVA tenderness (L) Neurological exam: Present: alert, oriented X3, CN II-XII intact Psychiatric exam: Present: anxious (Patient expresses worry about her with the onset of her current symptoms.) Skin exam: Present: warm, dry, intact, normal color. Absent: rash Course Vital Signs 12/07/19 12/07/19 12/07/19 20:43 21:52 22:53 Temperature 98.3 F 97.9 F Pulse Rate 124 H 94 98 Respiratory 18 19 19 Rate Blood Pressure 136/81 128/86 128/77 O2 Sat by Pulse 97 96 98 Oximetry 12/07/19 12/08/19 23:50 00:36 Temperature 98.5 F 98.1 F Pulse Rate 89 95 Respiratory 18 19 Rate Blood Pressure 108/78 117/82 O2 Sat by Pulse 97 98 Oximetry Medical Decision Making - Medical Decision Making 24-year-old female presents to the emergency department this evening with complaints of nausea and left flank pain that radiates to the suprapubic region, sudden onset 1 hour prior to arrival. Patient is 15 weeks and is . Denies vaginal bleeding and hematuria, but reports "razor blade" discomfort with urination. History of kidney stones. IV fluids were administered, morphine was given for pain, and Reglan and Benadryl were also given for nausea. Ultrasound of the kidneys showed mild hydronephrosis bilaterally but no sign of renal calculi. Urinalysis was positive for trace ketones, trace leukocytes, and 7 red blood cells. ultrasound confirmed intrauterine measuring 15 weeks and 6 days, no complicating processes were seen. Patient reports feeling significantly improved after treatment. She was encouraged to call her OB on Monday for recheck. Instructed to follow up with her primary care ph ysician for recheck in 1-2 days. Instructed to return to the emergency department with intolerable pain, inability to tolerate anything by mouth, or hematuria. Patient verbalizes understanding and agrees with this plan. - Lab Data Result diagrams: 12/07/19 21:43 12/07/19 21:43 Lab Results 12/07/19 12/07/19 12/07/19 Range/Units 21:43 21:43 21:43 WBC 9.2 (3.8-10.6) k/uL RBC 3.78 L (3.80-5.40) m/uL Hgb 12.7 (11.4-16.0) gm/dL Hct 36.4 (34.0-46.0) % MCV 96.4 (80.0-100.0) fL MCH 33.7 (25.0-35.0) pg MCHC 35.0 (31.0-37.0) g/dL RDW 12.3 (11.5-15.5) % Plt Count 278 (150-450) k/uL Neutrophils % 67 % Lymphocytes % 25 % Monocytes % 5 % Eosinophils % 2 % Basophils % 1 % Neutrophils # 6.1 (1.3-7.7) k/uL Lymphocytes # 2.3 (1.0-4.8) k/uL Monocytes # 0.5 (0-1.0) k/uL Eosinophils # 0.2 (0-0.7) k/uL Basophils # 0.1 (0-0.2) k/uL Sodium 137 (137-145) mmol/L Potassium 4.0 (3.5-5.1) mmol/L Chloride 106 (98-107) mmol/L Carbon Dioxide 22 (22-30) mmol/L Anion Gap 9 mmol/L BUN 10 (7-17) mg/dL Creatinine 0.68 (0.52-1.04) mg/dL Est GFR (CKD-EPI)AfAm >90 (>60 ml/min/1.73 sqM) Est GFR (CKD-EPI)NonAf >90 (>60 ml/min/1.73 sqM) Glucose 123 H (74-99) mg/dL Calcium 9.8 (8.4-10.2) mg/dL Total Bilirubin 0.3 (0.2-1.3) mg/dL AST 19 (14-36) U/L ALT 15 (4-34) U/L Alkaline Phosphatase 53 (38-126) U/L Total Protein 7.2 (6.3-8.2) g/dL Albumin 4.5 (3.5-5.0) g/dL Lipase 76 (23-300) U/L Urine Color Yellow Urine Appearance Cloudy H (Clear) Urine pH 6.5 (5.0-8.0) Ur Specific [place] 1.018 (1.001-1.035) Urine Protein Negative (Negative) Urine Glucose (UA) Negative (Negative) Urine Ketones Trace H (Negative) Urine Blood Negative (Negative) Urine Nitrite Negative (Negative) Urine Bilirubin Negative (Negative) Urine Urobilinogen <2.0 (<2.0) mg/dL Ur Leukocyte Esterase Trace H (Negative) Urine RBC 7 H (0-5) /hpf Urine WBC 4 (0-5) /hpf Ur Squamous Epith Cells <1 (0-4) /hpf Amorphous Sediment Rare H (None) /hpf Urine Bacteria Many H (None) /hpf Urine Mucus Rare H (None) /hpf - Radiology Data Radiology results: report reviewed Transabdominal ultrasound was obtained. Single intrauterine was visualized. Anterior placenta placement, no evidence of previa. Impressions per Dr. Yip including gestational age of 15 weeks and 6 days. The SAURAV is 05/24/2020. There is satisfactory growth compared to previous exam on 10/08/2019 which gave an SAURAV of 05/31/2020. Ultrasound of the left kidneys renal and bladder was obtained. Impression per Dr. Yip includes mild bilateral hydronephrosis. There is possible left side ureteral jet. No renal mass. No sign of renal calculus. Disposition Clinical Impression: Left flank pain Disposition: HOME SELF-CARE Condition: Good Instructions (If sedation given, give patient instructions): Abdominal Pain (ED), Flank Pain (ED) Additional Instructions: Increase fluids. Follow up with the primary care physician and OBGYN as soon as possible. Return to the emergency department for any new, worsening, or concerning symptoms. Is patient prescribed a controlled substance at d/c from ED?: No Referrals: Larisa Titus MD [Primary Care Provider] - 1-2 days Brittany Henderson MD [REFERRING] - 1-2 days Time of Disposition: 00:37
== END 2019-12-08 00:49 | disposition home or self-care (01) ==
LOC: EC 20:41
DX: O99.891 Other specified diseases and conditions complicating pregnancy (principal); R10.9 Unspecified abdominal pain; O26.832 Pregnancy related renal disease, second trimester; N13.30 Unspecified hydronephrosis; O99.512 Diseases of the respiratory system complicating pregnancy, second trimester; J45.909 Unspecified asthma, uncomplicated; O99.342 Other mental disorders complicating pregnancy, second trimester; F41.9 Anxiety disorder, unspecified; F32.9 Major depressive disorder, single episode, unspecified; Z3A.15 15 weeks gestation of pregnancy; Z88.1 Allergy status to other antibiotic agents; Z88.2 Allergy status to sulfonamides; Z91.018 Allergy to other foods; Z91.048 Other nonmedicinal substance allergy status
CPT/HCPCS: 99284 ×2; 96374 ×2; 96375 ×3; 96361 ×2; 36415; 80053; 83690; 85025; 81001; 76805; 76770; J1200; J2765; J2270

== ENCOUNTER 2019-12-14 00:54 | Emergency (ER) | payer OTHER ==
[2019-12-14] MEDS ORDERED: ACETAMINOPHEN TAB 325 MG TAB PO STA (01:49)
[2019-12-14 02:07] LABS: Basophils % (A) 0 %; Eosinophils # (A) 0.1 k/uL (0-0.7); Eosinophils % (A) 1 %; HCT 37.6 % (34.0-46.0); HGB 12.9 gm/dL (11.4-16.0); Lymphocytes # (A) 2.8 k/uL (1.0-4.8); Lymphocytes % (A) 27 %; MCH 33.7 pg (25.0-35.0); MCHC 34.4 g/dL (31.0-37.0); Monocytes # (A) 0.5 k/uL (0-1.0); Monocytes % (A) 5 %; Neutrophils # (A) 6.9 k/uL (1.3-7.7); Neutrophils % (A) 66 %; Platelet Count 308 k/uL (150-450); RBC 3.84 m/uL (3.80-5.40); RDW 13.1 % (11.5-15.5); WBC 10.4 k/uL (3.8-10.6)
[2019-12-14 02:11] LABS: Appearance,Urine Clear (Clear); Bilirubin,Urine Negative (Negative); Blood,Urine Negative (Negative); Color,Urine Colorless; Glucose,Urine (UA) Negative (Negative); Ketones,Urine Negative (Negative); Leukocyte Esterase,Urine Negative (Negative); Nitrite,Urine Negative (Negative); PH, Urine 6.5 (5.0-8.0); Protein,Urine Negative (Negative); Specific Gravity,Urine 1.004 (1.001-1.035); Urobilinogen,Urine <2.0 mg/dL (<2.0)
[2019-12-14] MEDS ORDERED: MORPHINE SULFATE 4 MG/ML SYRINGE IV STA ×2 (02:15→03:03)
[2019-12-14] MEDS ORDERED: SODIUM CHLORIDE 0.9% 1,000 ML IV STA (02:15)
[2019-12-14] MEDS ORDERED: METOCLOPRAMIDE 5 MG/ML 2 ML VIAL IVP STA (02:15)
[2019-12-14 02:23] LABS: ALT 15 U/L (4-34); AST 20 U/L (14-36); African American GFR (CKD) >90 (>60 ml/min/1.73 sqM); Albumin 4.3 g/dL (3.5-5.0); Alkaline Phosphatase 57 U/L (38-126); Amylase 54 U/L (30-110); Anion Gap 10 mmol/L; Blood Urea Nitrogen 9 mg/dL (7-17); Calcium 9.4 mg/dL (8.4-10.2); Carbon Dioxide 19 mmol/L (22-30); Chloride 107 mmol/L (98-107); Glucose 88 mg/dL (74-99); Non-African American GFR(CKD) >90 (>60 ml/min/1.73 sqM); Sodium 136 mmol/L (137-145); Total Bilirubin 0.3 mg/dL (0.2-1.3); Total Protein 7.2 g/dL (6.3-8.2)
[2019-12-14] MEDS ORDERED: diphenhydrAMINE 50 MG/ML 1 ML VIAL IVP STA (02:51)
[2019-12-14] MEDS ORDERED: SODIUM CHLORIDE 0.9% 500 ML 500 ML IV STA (02:51)
[2019-12-14 04:17] VITALS: RESP 18
--- NOTE | 2019-12-14 04:44 | ED ---
Abdominal Pain HPI - General Chief Complaint: Abdominal Pain Stated Complaint: Back Pain Time Seen by Provider: 12/14/19 01:48 Source: patient Mode of arrival: ambulatory Limitations: no limitations - History of Present Illness Initial Comments: This patient is a 24-year-old woman who is approximately 17 weeks and presents with left flank pain. She was in approximately one week ago and was told that they suspect she had kidney stone. She describes the pain as being sharp, constant, radiates from the left flank to the left lower quadrant. She also is feeling like she needs to urinate frequently but is only passing a small amount of urine. No fever or chills. No vaginal bleeding. She does have a small amount of vaginal discharge that her drafting teacher has told there is normal. and has been going on for weeks now. No change in bowel movements. When the pain became severe she did have vomiting no blood or coffee-ground emesis. MD Complaint: flank pain Onset/Timin -: hour(s) Location: L flank Radiation: LLQ Migration to: no migration Severity: severe Quality: cramping, stabbing Consistency: constant Improves With: nothing Worsens With: nothing Associated Symptoms: nausea, vomiting - Related Data Home Medications Medication Instructions Recorded Confirmed Altavera-28 1 tab PO HS 01/15/17 08/28/17 ALPRAZolam [Xanax] 1 mg PO HS PRN 06/28/17 08/28/17 Albuterol Inhaler (Mhu) [Ventolin 2 puff INHALATION RT-Q6H PRN 06/28/17 08/28/17 Hfa Inhaler] Albuterol Nebulized [Ventolin 2.5 mg INHALATION RT-Q6H PRN 06/28/17 08/28/17 Nebulized] Allergies Allergy/AdvReac Type Severity Reaction Status Date / Time nickel Allergy Rash/Hives Verified 12/14/19 01:17 sulfamethoxazole Allergy Rash/Hives Verified 12/14/19 01:17 [From ] trimethoprim [From ] Allergy Rash/Hives Verified 12/14/19 01:17 corn AdvReac Diarrhea Verified 12/14/19 01:17 Review of Systems ROS Statement: Those systems with pertinent positive or pertinent negative responses have been documented in the HPI. ROS Other: All systems not noted in ROS Statement are negative. Constitutional: Denies: fever, chills Respiratory: Denies: cough, dyspnea Cardiovascular: Denies: chest pain, palpitations, edema, syncope Gastrointestinal: Reports: as per HPI, abdominal pain, nausea, vomiting. Denies: diarrhea, constipation, melena, hematochezia Genitourinary: Reports: as per HPI, frequency, discharge. Denies: dysuria, hematuria, abnormal menses, dyspareunia Musculoskeletal: Denies: back pain Skin: Denies: rash Neurological: Denies: headache, weakness, numbness Past Medical History Past Medical History: Asthma Additional Past Medical History / Comment(s): right ovarian cyst, collitus, R Overy twice the size as laft overy. Endomertriosis in the past and small part of uterus removed. Enlarged liver. Graves disease. mitral valve regugitation. History of Any Multi-Drug Resistant Organisms: None Reported Past Surgical History: Appendectomy Additional Past Surgical History / Comment(s): growth removed from right ovary and small amount of uterus remover due to pos endometrosis. Poly cycstic ovarian desease. Past Psychological History: Anxiety, Depression Smoking Status: Never smoker Past Alcohol Use History: None Reported Past Drug Use History: None Reported - Past Family History Mother Family Medical History: Asthma Father Family Medical History: Coronary Artery Disease (CAD), CVA/TIA Brother(s) Family Medical History: Asthma General Exam Limitations: no limitations General appearance: alert, in no apparent distress Head exam: Present: atraumatic, normocephalic Eye exam: Present: normal appearance. Absent: scleral icterus, conjunctival injection ENT exam: Present: normal oropharynx Neck exam: Present: normal inspection Respiratory exam: Present: normal lung sounds bilaterally. Absent: respiratory distress, wheezes, rales, rhonchi, stridor Cardiovascular Exam: Present: normal rhythm, tachycardia, normal heart sounds. Absent: systolic murmur, diastolic murmur, rubs, gallop GI/Abdominal exam: Present: soft, normal bowel sounds. Absent: distended, tende rness, guarding, rebound, rigid, mass, pulsatile mass, hernia Extremities exam: Present: normal inspection, normal capillary refill. Absent: pedal edema, calf tenderness Back exam: Present: normal inspection. Absent: CVA tenderness (R), CVA tendern ess (L) Neurological exam: Present: alert Skin exam: Present: warm, dry, intact, normal color. Absent: rash Course Vital Signs 12/14/19 12/14/19 12/14/19 01:14 04:00 05:00 Temperature 98.0 F 98.1 F Pulse Rate 140 H 122 H 116 H Respiratory 26 H 18 18 Rate Blood Pressure 136/80 127/96 O2 Sat by Pulse 99 95 96 Oximetry Medical Decision Making - Medical Decision Making Patient is 24-year-old woman proximally 17 weeks with left flank pain. Her workup today essentially unremarkable. She did have relief with analgesics. As patient is symptom-free, and wishes to go home, will have outpatient ultrasound. We discussed the appropriate further care as well as return parameters. She will also contact her drafting teacher today as well. - Lab Data Result diagrams: 12/14/19 01:57 12/14/19 01:57 Lab Results 12/14/19 12/14/19 12/14/19 Range/Units 01:57 01:57 01:57 WBC 10.4 (3.8-10.6) k/uL RBC 3.84 (3.80-5.40) m/uL Hgb 12.9 (11.4-16.0) gm/dL Hct 37.6 (34.0-46.0) % MCV 98.0 (80.0-100.0) fL MCH 33.7 (25.0-35.0) pg MCHC 34.4 (31.0-37.0) g/dL RDW 13.1 (11.5-15.5) % Plt Count 308 (150-450) k/uL Neutrophils % 66 % Lymphocytes % 27 % Monocytes % 5 % Eosinophils % 1 % Basophils % 0 % Neutrophils # 6.9 (1.3-7.7) k/uL Lymphocytes # 2.8 (1.0-4.8) k/uL Monocytes # 0.5 (0-1.0) k/uL Eosinophils # 0.1 (0-0.7) k/uL Basophils # 0.0 (0-0.2) k/uL Sodium 136 L (137-145) mmol/L Potassium 4.0 (3.5-5.1) mmol/L Chloride 107 (98-107) mmol/L Carbon Dioxide 19 L (22-30) mmol/L Anion Gap 10 mmol/L BUN 9 (7-17) mg/dL Creatinine 0.56 (0.52-1.04) mg/dL Est GFR (CKD-EPI)AfAm >90 (>60 ml/min/1.73 sqM) Est GFR (CKD-EPI)NonAf >90 (>60 ml/min/1.73 sqM) Glucose 88 (74-99) mg/dL Calcium 9.4 (8.4-10.2) mg/dL Total Bilirubin 0.3 (0.2-1.3) mg/dL AST 20 (14-36) U/L ALT 15 (4-34) U/L Alkaline Phosphatase 57 (38-126) U/L Total Protein 7.2 (6.3-8.2) g/dL Albumin 4.3 (3.5-5.0) g/dL Amylase 54 (30-110) U/L Lipase 63 (23-300) U/L Urine Color Colorless Urine Appearance Clear (Clear) Urine pH 6.5 (5.0-8.0) Ur Specific [place] 1.004 (1.001-1.035) Urine Protein Negative (Negative) Urine Glucose (UA) Negative (Negative) Urine Ketones Negative (Negative) Urine Blood Negative (Negative) Urine Nitrite Negative (Negative) Urine Bilirubin Negative (Negative) Urine Urobilinogen <2.0 (<2.0) mg/dL Ur Leukocyte Esterase Negative (Negative) Disposition Clinical Impression: Left flank pain Disposition: HOME SELF-CARE Condition: Good Instructions (If sedation given, give patient instructions): Abdominal Pain (ED) Additional Instructions: As we discussed, follow-up for the ultrasound this morning. Is patient prescribed a controlled substance at d/c from ED?: No Referrals: Larisa Titus MD [Primary Care Provider] - 1-2 days Brittany Henderson MD [REFERRING] - 1-2 days
[2019-12-14 05:01] VITALS: BP 127/96; PULSE 116; TEMP 98.1
== END 2019-12-14 05:13 | disposition home or self-care (01) ==
LOC: EC 00:54
DX: O26.892 Other specified pregnancy related conditions, second trimester (principal); R10.32 Left lower quadrant pain; O99.512 Diseases of the respiratory system complicating pregnancy, second trimester; J45.909 Unspecified asthma, uncomplicated; O99.342 Other mental disorders complicating pregnancy, second trimester; F32.9 Major depressive disorder, single episode, unspecified; F41.8 Other specified anxiety disorders; Z3A.17 17 weeks gestation of pregnancy; Z91.048 Other nonmedicinal substance allergy status; Z88.1 Allergy status to other antibiotic agents
CPT/HCPCS: 36415; 80053; 82150; 83690; 85025; 81003; 99284; 96374; 96375 ×2; 96376; 96361 ×3; J2270; J1200; J2765

== ENCOUNTER → 2019-12-16 | Outpatient (CLI) | payer OTHER ==
--- NOTE | 2019-12-16 08:04 | US ---
EXAMINATION TYPE: US kidneys/renal and bladder DATE OF EXAM: 12/16/2019 COMPARISON: 12/07/2019 CLINICAL HISTORY: 24-year-old female R10.32 left flank pain, patient is 17 weeks . TECHNIQUE: Multiple sonographic images of the kidneys and bladder are obtained. FINDINGS: EXAM MEASUREMENTS: Right Kidney: 10.2 x 5.0 x 5.0 cm Left Kidney: 9.8 x 5.8 x 5.6 cm Right Kidney: mild hydronephrosis, 0.8cm cystic area superior pole Left Kidney: mild hydronephrosis Bladder: wnl Bilateral Jets seen: yes IMPRESSION: Continued mild bilateral hydronephrosis. Both ureteral jets remain visualized.
== END | disposition home or self-care (01) ==
LOC: RADUSWWP 07:00
PROVIDERS: ATTEND Radiology Diagnostic Radiology
DX: N13.30 Unspecified hydronephrosis (principal)
CPT/HCPCS: 76770

== ENCOUNTER 2020-01-26 11:21 | Emergency (ER) | payer OTHER ==
[2020-01-26 11:25] VITALS: RESP 18; TEMP 98
[2020-01-26] MEDS ORDERED: MORPHINE SULFATE 4 MG/ML SYRINGE IV STA (11:43)
[2020-01-26] MEDS ORDERED: SODIUM CHLORIDE 0.9% 1,000 ML IV STA (11:43)
[2020-01-26] MEDS ORDERED: ONDANSETRON 4 MG/2 ML VIAL IVP STA (11:43)
--- NOTE | 2020-01-26 11:54 | ED ---
General Adult HPI - General Chief complaint: Urogenital Stated complaint: 22wks preg abd pain Time Seen by Provider: 01/26/20 11:26 Source: patient, RN notes reviewed Mode of arrival: ambulatory Limitations: no limitations - History of Present Illness Initial comments: 24-year-old female presents to the emergency department for a chief complaint of left flank pain. Patient is 22 weeks . Patient has a history of kidney stones. Patient reports that for the past month and a half she has been struggling with kidney stones. She has seen a urologist and had an ultrasound performed that showed bilateral hydronephrosis about a month and a half ago. Patient states he wanted to do a CAT scan at that time but pain had improved for a few weeks so she did not have this done. However today pain is worsening again so she decided to present to the emergency room. Patient admits to nausea denies vomiting.Patient has no other complaints at this time including shortness of breath, chest pain, abdominal pain, nausea or vomiting, headache, or visual changes. - Related Data Home Medications Medication Instructions Recorded Confirmed Acetaminophen-Codeine 300-30mg 1 - 2 tab PO Q4-6H PRN 01/26/20 01/26/20 [Tylenol w/codeine #3] Albuterol Inhaler [Ventolin Hfa 2 puff INHALATION RT-QID PRN 01/26/20 01/26/20 Inhaler] Beclomethasone Dipropionate [Qvar 2 puff PO RT-BID 01/26/20 01/26/20 80mcg Redihaler] Cholecalciferol [Vitamin D3 (25 2,000 unit PO DAILY 01/26/20 01/26/20 Mcg = 1000 Iu)] Dicyclomine HCl 10 mg PO QID 01/26/20 01/26/20 Famotidine 20 mg PO BID 01/26/20 01/26/20 Labetalol HCl 100 mg PO BID 01/26/20 01/26/20 Levothyroxine Sodium [Synthroid] 150 mcg PO DAILY 01/26/20 01/26/20 Montelukast [Singulair] 10 mg PO DAILY 01/26/20 01/26/20 Oxybutynin Xl [Ditropan Xl] 5 mg PO DAILY 01/26/20 01/26/20 Fkj-Ppqs-Avilj Acid 1 cap PO DAILY 01/26/20 01/26/20 [-U Capsule (formulary)] Previous Rx's Medication Instructions Recorded Cephalexin [Keflex] 500 mg PO BID 7 Days #14 cap 01/26/20 Allergies Allergy/AdvReac Type Severity Reaction Status Date / Time nickel Allergy Rash/Hives Verified 01/26/20 12:38 sulfamethoxazole Allergy Rash/Hives Verified 01/26/20 12:38 [From ] trimethoprim [From ] Allergy Rash/Hives Verified 01/26/20 12:38 corn AdvReac Diarrhea Verified 01/26/20 12:38 Review of Systems ROS Statement: Those systems with pertinent positive or pertinent negative responses have been documented in the HPI. ROS Other: All systems not noted in ROS Statement are negative. Past Medical History Past Medical History: Asthma Additional Past Medical History / Comment(s): right ovarian cyst, collitus, R Overy twice the size as laft overy. Endomertriosis in the past and small part of uterus removed. Enlarged liver. Graves disease. mitral valve regugitation. History of Any Multi-Drug Resistant Organisms: None Reported Past Surgical History: Appendectomy Additional Past Surgical History / Comment(s): growth removed from right ovary and small amount of uterus remover due to pos endometrosis. Poly cycstic ovarian desease. Past Psychological History: Anxiety, Depression Smoking Status: Never smoker Past Alcohol Use History: None Reported Past Drug Use History: None Reported - Past Family History Mother Family Medical History: Asthma Father Family Medical History: Coronary Artery Disease (CAD), CVA/TIA Brother(s) Family Medical History: Asthma General Exam Limitations: no limitations General appearance: alert, in no apparent distress Head exam: Present: atraumatic, normocephalic, normal inspection Eye exam: Present: normal appearance, PERRL, EOMI. Absent: scleral icterus, conjunctival injection, periorbital swelling ENT exam: Present: normal exam, mucous membranes moist Neck exam: Present: normal inspection. Absent: tenderness, meningismus, lymphadenopathy Respiratory exam: Present: normal lung sounds bilaterally. Absent: respiratory distress, wheezes, rales, rhonchi, stridor Cardiovascular Exam: Present: regular rate, normal rhythm, normal heart sounds. Absent: systolic murmur, diastolic murmur, rubs, gallop, clicks GI/Abdominal exam: Present: soft, normal bowel sounds. Absent: distended, tenderness, guarding, rebound, rigid Back exam: Present: CVA tenderness (L) Neurological exam: Present: alert Course Vital Signs 01/26/20 01/26/20 01/26/20 11:22 13:29 13:49 Temperature 98 F Pulse Rate 108 H 125 H 120 H Respiratory 18 18 18 Rate Blood Pressure 126/94 131/104 O2 Sat by Pulse 97 100 98 Oximetry 01/26/20 01/26/20 14:04 14:36 Temperature Pulse Rate 120 H 126 H Respiratory 18 18 Rate Blood Pressure 130/88 121/80 O2 Sat by Pulse 100 100 Oximetry - Reevaluation(s) Reevaluation #1: 01/26/20 12:53 Patient was evaluated by mother baby, heart tones are 130 to 140 Medical Decision Making - Medical Decision Making I did review patient's ultrasound from December 15. This showed continued mild bilateral hydronephrosis. Both ureteral jets remain visualized. She presents with stable vitals. Heart rate of 108 with slight hypertension likely secondary to pain. CBC CMP is unremarkable. Urinalysis does show 28 red blood cells which is consistent with kidney stone. Continues to have pain at about a 6 out of 10. I did perform a post void bladder scan and patient is retaining about 407 mL of urine. I discussed this case with Dr. Sims. Recommends doing a catheter in patient and following up in the office early this week with Dr. Lockwood as she has been following with him. He did recommend teaching self-cath however I was unable to obtain the supplies for sending her home with this. I discussed indwelling Martinez versus straight cathing now and following up tomorrow. If she feels worse throughout the night she will need to return for an indwelling. Patient would prefer to do a straight catheter now and follow-up tomorrow. This only revealed 20 cc urine. I did discuss that she also needs to follow up closely with [facility]ACHINE OPERATOR. She will return to the emergency room for any worsening symptoms. She is already prescribed Tylenol 3 at home. Care was signed out to Dr. Corea at 1400 pending additional dose of pain medication. Patient was complaining of urethral pain and was started on Keflex given many bacteria in urie. However denies any burning sensation with urination. - Lab Data Result diagrams: 01/26/20 12:05 01/26/20 12:05 Lab Results 01/26/20 01/26/20 01/26/20 Range/Units 12:05 12:05 12:05 WBC 10.6 (3.8-10.6) k/uL RBC 3.64 L (3.80-5.40) m/uL Hgb 12.1 (11.4-16.0) gm/dL Hct 36.1 (34.0-46.0) % MCV 99.1 (80.0-100.0) fL MCH 33.2 (25.0-35.0) pg MCHC 33.5 (31.0-37.0) g/dL RDW 12.8 (11.5-15.5) % Plt Count 311 (150-450) k/uL MPV 6.9 Neutrophils % 77 % Lymphocytes % 16 % Monocytes % 4 % Eosinophils % 2 % Basophils % 0 % Neutrophils # 8.1 H (1.3-7.7) k/uL Lymphocytes # 1.7 (1.0-4.8) k/uL Monocytes # 0.4 (0-1.0) k/uL Eosinophils # 0.2 (0-0.7) k/uL Basophils # 0.0 (0-0.2) k/uL Sodium 134 L (137-145) mmol/L Potassium 4.2 (3.5-5.1) mmol/L Chloride 107 (98-107) mmol/L Carbon Dioxide 20 L (22-30) mmol/L Anion Gap 7 mmol/L BUN 9 (7-17) mg/dL Creatinine 0.62 (0.52-1.04) mg/dL Est GFR (CKD-EPI)AfAm >90 (>60 ml/min/1.73 sqM) Est GFR (CKD-EPI)NonAf >90 (>60 ml/min/1.73 sqM) Glucose 89 (74-99) mg/dL Calcium 9.0 (8.4-10.2) mg/dL Total Bilirubin 0.3 (0.2-1.3) mg/dL AST 18 (14-36) U/L ALT 12 (4-34) U/L Alkaline Phosphatase 54 (38-126) U/L Total Protein 6.9 (6.3-8.2) g/dL Albumin 3.9 (3.5-5.0) g/dL Amylase 52 (30-110) U/L Lipase 64 (23-300) U/L Urine Color Light Yellow Urine Appearance Clear (Clear) Urine pH 6.0 (5.0-8.0) Ur Specific Maurice 1.009 (1.001-1.035) Urine Protein Negative (Negative) Urine Glucose (UA) Negative (Negative) Urine Ketones Negative (Negative) Urine Blood Moderate H (Negative) Urine Nitrite Negative (Negative) Urine Bilirubin Negative (Negative) Urine Urobilinogen <2.0 (<2.0) mg/dL Ur Leukocyte Esterase Negative (Negative) Urine RBC 28 H (0-5) /hpf Urine WBC 3 (0-5) /hpf Ur Squamous Epith Cells 1 (0-4) /hpf Amorphous Sediment Rare H (None) /hpf Urine Bacteria Many H (None) /hpf Urine Mucus Occasional H (None) /hpf Disposition Clinical Impression: Flank pain Disposition: HOME SELF-CARE Condition: Good Additional Instructions: Take your pain medications as directed. Your oxybutynin is okay during as well. Please call both your [facility] MACHINE OPERATOR and urologist tomorrow morning. Please try to follow up with urology early this week. Dr. Sims reported Dr Lockwood would be able to get you in earlier this week. If you're having worsening pain or are not able to urinate you need to return to the emergency room. Prescriptions: Cephalexin [Keflex] 500 mg PO BID 7 Days #14 cap Is patient prescribed a controlled substance at d/c from ED?: No Referrals: Larisa Titus MD [Primary Care Provider] - 1-2 days Augustus Lockwood MD [STAFF PHYSICIAN] - 1-2 days Time of Disposition: 14:00
[2020-01-26 12:16] LABS: Basophils % (A) 0 %; Eosinophils # (A) 0.2 k/uL (0-0.7); Eosinophils % (A) 2 %; HCT 36.1 % (34.0-46.0); HGB 12.1 gm/dL (11.4-16.0); Lymphocytes # (A) 1.7 k/uL (1.0-4.8); Lymphocytes % (A) 16 %; MCH 33.2 pg (25.0-35.0); MCHC 33.5 g/dL (31.0-37.0); MCV 99.1 fL (80.0-100.0); Mean Platelet Volume 6.9; Monocytes # (A) 0.4 k/uL (0-1.0); Monocytes % (A) 4 %; Neutrophils # (A) 8.1 k/uL (1.3-7.7); Neutrophils % (A) 77 %; Platelet Count 311 k/uL (150-450); RBC 3.64 m/uL (3.80-5.40); RDW 12.8 % (11.5-15.5); WBC 10.6 k/uL (3.8-10.6)
[2020-01-26 12:26] LABS: ALT 12 U/L (4-34); AST 18 U/L (14-36); African American GFR (CKD) >90 (>60 ml/min/1.73 sqM); Albumin 3.9 g/dL (3.5-5.0); Alkaline Phosphatase 54 U/L (38-126); Amylase 52 U/L (30-110); Anion Gap 7 mmol/L; Blood Urea Nitrogen 9 mg/dL (7-17); Carbon Dioxide 20 mmol/L (22-30); Chloride 107 mmol/L (98-107); Glucose 89 mg/dL (74-99); Lipase 64 U/L (23-300); Non-African American GFR(CKD) >90 (>60 ml/min/1.73 sqM); Potassium 4.2 mmol/L (3.5-5.1); Sodium 134 mmol/L (137-145); Total Bilirubin 0.3 mg/dL (0.2-1.3); Total Protein 6.9 g/dL (6.3-8.2)
[2020-01-26 12:38] LABS: Amorphous Sediment,Urine Rare /hpf; Appearance,Urine Clear (Clear); Bacteria,Urine Many /hpf; Bilirubin,Urine Negative (Negative); Blood,Urine Moderate (Negative); Color,Urine Light Yellow; Glucose,Urine (UA) Negative (Negative); Ketones,Urine Negative (Negative); Leukocyte Esterase,Urine Negative (Negative); Mucus,Urine Occasional /hpf; Nitrite,Urine Negative (Negative); Protein,Urine Negative (Negative); RBC,Urine 28 /hpf (0-5); Specific Gravity,Urine 1.009 (1.001-1.035); Squamous Epithelial Cell,Urine 1 /hpf (0-4); Urobilinogen,Urine <2.0 mg/dL (<2.0); WBC,Urine 3 /hpf (0-5)
[2020-01-26] MEDS ORDERED: HYDROmorphone 0.5 MG/0.5 ML SYRINGE IVP STA (12:48)
[2020-01-26] MEDS ORDERED: MORPHINE SULFATE 4 MG/ML SYRINGE IVP STA (13:55)
[2020-01-26] MEDS ORDERED: CEPHALEXIN 500MG STARTER PACK 4 CAP BTL PO STA (14:07)
[2020-01-26 14:37] VITALS: BP 121/80; PULSE 126
== END 2020-01-26 14:42 | disposition home or self-care (01) ==
LOC: EC 11:21
DX: O99.512 Diseases of the respiratory system complicating pregnancy, second trimester (principal); J45.909 Unspecified asthma, uncomplicated; O99.892 Other specified diseases and conditions complicating childbirth; N36.8 Other specified disorders of urethra; R10.9 Unspecified abdominal pain; Z79.51 Long term (current) use of inhaled steroids; Z79.890 Hormone replacement therapy; Z79.899 Other long term (current) drug therapy; Z88.1 Allergy status to other antibiotic agents; Z91.048 Other nonmedicinal substance allergy status; Z88.2 Allergy status to sulfonamides; Z91.018 Allergy to other foods; Z3A.22 22 weeks gestation of pregnancy; Z87.442 Personal history of urinary calculi; Z90.89 Acquired absence of other organs
CPT/HCPCS: 51798; 36415; 80053; 82150; 83690; 85025; 81001; 87086; 99284; 96374; 96375 ×2; 96376; 96361; J2270; J2405; J1170

== ENCOUNTER → 2020-11-26 | Outpatient (CLI) | payer OTHER ==
[2020-11-26 18:15] LABS: Basophils # (A) 0.05 X 10*3/uL (0.00-0.10); Basophils % (A) 0.7 %; Eosinophils % (A) 1.4 %; HCT 43.8 % (37.2-46.3); HGB 14.7 g/dL (12.0-15.0); Lymphocytes # (A) 2.54 X 10*3/uL (0.90-5.00); Lymphocytes % (A) 35.1 %; MCH 32.4 pg (27.0-32.0); MCHC 33.6 g/dL (32.0-37.0); MCV 96.5 fL (80.0-97.0); Mean Platelet Volume 9.2 fL (9.5-12.2); Monocytes % (A) 5.5 %; Neutrophils # (A) 4.14 X 10*3/uL (1.80-7.70); Neutrophils % (A) 57.2 %; Platelet Count 329 X 10*3/uL (140-440); RBC 4.54 X 10*6/uL (4.10-5.20); RDW 11.9 % (11.5-14.5); WBC 7.24 X 10*3/uL (4.50-10.00)
[2020-11-27 03:16] LABS: % Iron Saturation 35.47 (12.00-45.00); African American GFR (CKD) 170.7 (60.0-200.0); Albumin 4.8 g/dL (3.8-4.9); Albumin/Globulin Ratio 1.72 (1.60-3.17); Anion Gap 13.5 mmol/L (4.00-12.00); BUN/Creat Ratio 40.66 Ratio (12.00-20.00); Blood Urea Nitrogen 14.8 mg/dL (9.0-27.0); Calcium 9.3 mg/dL (8.7-10.3); Carbon Dioxide 22.3 mmol/L (21.6-31.8); Chol/HDL Ratio 3.79 Ratio; Ferritin 91.3 ng/mL (10.0-291.0); Globulin 2.8 g/dL (1.6-3.3); HDL Cholesterol 53.3 mg/dL (40.00-60.00); LDL Cholesterol,Calculated 115.7 mg/dL (0.0-131.0); Non-African American GFR(CKD) 147.2 (60.0-200.0); Potassium 4.5 mmol/L (3.5-5.5); T4, Free (Free Thyroxine) 1.8 ng/dL (0.800-1.800); Total Bilirubin 0.3 mg/dL (0.30-1.20); Total Protein 7.6 g/dL (6.2-8.2)
[2020-11-27 05:01] LABS: Thyroid Peroxidase Antibodies <9.0 U/mL (0.0-33.0)
== END | disposition home or self-care (01) ==
LOC: LABWHC1 11:09
PROVIDERS: ATTEND Physician Assistant Medical
DX: Z13.220 Encounter for screening for lipoid disorders (principal); D64.9 Anemia, unspecified; E55.9 Vitamin D deficiency, unspecified; E89.0 Postprocedural hypothyroidism; F39 Unspecified mood [affective] disorder; F41.9 Anxiety disorder, unspecified; F53.0 Postpartum depression
CPT/HCPCS: 36415; 80053; 80061; 82306; 82607; 82728; 83540; 83550; 83970; 84432; 84439; 84443; 84480; 85025; 86376; 86800; 87086

== ENCOUNTER → 2021-09-02 | Outpatient (CLI) | payer OTHER ==
[2021-09-02 16:14] LABS: Basophils # (A) 0.04 X 10*3/uL (0.00-0.10); Basophils % (A) 0.6 %; Eosinophils # (A) 0.17 X 10*3/uL (0.04-0.35); Eosinophils % (A) 2.7 %; HCT 43.5 % (37.2-46.3); Immature Grans, Automated 0.3 %; Lymphocytes # (A) 2.13 X 10*3/uL (0.90-5.00); Lymphocytes % (A) 33.9 %; MCH 30.7 pg (27.0-32.0); MCHC 32.2 g/dL (32.0-37.0); MCV 95.4 fL (80.0-97.0); Mean Platelet Volume 9.6 fL (9.5-12.2); Monocytes # (A) 0.43 X 10*3/uL (0.20-1.00); Monocytes % (A) 6.8 %; NRBC Per 100 WBC 0 /100 WBCS (0.0-0.0); Neutrophils % (A) 55.7 %; Platelet Count 306 X 10*3/uL (140-440); RBC 4.56 X 10*6/uL (4.10-5.20); RDW 12.1 % (11.5-14.5); WBC 6.29 X 10*3/uL (4.50-10.00)
[2021-09-02 17:04] LABS: African American GFR (CKD) 134.6 (60.0-200.0); Anion Gap 13.3 mmol/L (10.00-18.00); BUN/Creat Ratio 25.25 Ratio (12.00-20.00); Blood Urea Nitrogen 17.9 mg/dL (9.0-27.0); Calcium 9.4 mg/dL (8.7-10.3); Non-African American GFR(CKD) 116.1 (60.0-200.0); Potassium 4.6 mmol/L (3.5-5.5)
== END | disposition home or self-care (01) ==
LOC: LABPAT 09:14
PROVIDERS: ATTEND Urology
DX: Z01.812 Encounter for preprocedural laboratory examination (principal); N20.0 Calculus of kidney
CPT/HCPCS: 36415; 80048; 85025

== ENCOUNTER 2021-09-09 06:38 | Day surgery (SDC) | payer OTHER ==
--- NOTE | 2021-09-07 06:05 | P.GSHP ---
History of Present Illness H&P Date: 09/07/21 Chief Complaint: Flank pain The patient is a 26-year-old white female who experienced left flank pain during in 2019. She was found to have hydronephrosis at that time. She now presents with bilateral flank and abdominal pain. CT scan shows a 9 mm right renal calculus, with no evidence of hydronephrosis. Bilateral subcentimeter renal cysts are also seen. She has been offered the options of observation, extracorporal shockwave lithotripsy (ESWL), and ureteroscopy with laser lithotripsy. She has elected to undergo the latter and comes for this reason. - Constitutional Constitutional: Reports chills, Denies fever - Gastrointestinal Gastrointestinal: Reports nausea, Denies vomiting - Genitourinary (Female) Genitourinary: Reports flank pain, Reports kidney stones, Denies dysuria, Denies hematuria Past Medical History Past Medical History: Asthma Additional Past Medical History / Comment(s): right ovarian cyst, collitus, R Overy twice the size as laft overy. Endomertriosis in the past and small part of uterus removed. Enlarged liver. Graves disease. mitral valve regugitation. History of Any Multi-Drug Resistant Organisms: None Reported Past Surgical History: Appendectomy Additional Past Surgical History / Comment(s): growth removed from right ovary and small amount of uterus remover due to pos endometrosis. Poly cycstic ovarian desease. Past Psychological History: Anxiety, Depression Smoking Status: Never smoker Past Alcohol Use History: None Reported Past Drug Use History: None Reported - Past Family History Mother Family Medical History: Asthma Father Family Medical History: Coronary Artery Disease (CAD), CVA/TIA Brother(s) Family Medical History: Asthma Medications and Allergies Home Medications Medication Instructions Recorded Confirmed Type Acetaminophen-Codeine 300-30mg 1 - 2 tab PO Q4-6H PRN 01/26/20 01/26/20 History [Tylenol w/codeine #3] Albuterol Inhaler [Ventolin Hfa 2 puff INHALATION RT-QID PRN 01/26/20 01/26/20 History Inhaler] Beclomethasone Dipropionate [Qvar 2 puff PO RT-BID 01/26/20 01/26/20 History 80mcg Redihaler] Cephalexin [Keflex] 500 mg PO BID 7 Days #14 cap 01/26/20 Rx Cholecalciferol [Vitamin D3 (25 2,000 unit PO DAILY 01/26/20 01/26/20 History Mcg = 1000 Iu)] Dicyclomine HCl 10 mg PO QID 01/26/20 01/26/20 History Famotidine 20 mg PO BID 01/26/20 01/26/20 History Labetalol HCl 100 mg PO BID 01/26/20 01/26/20 History Levothyroxine Sodium [Synthroid] 150 mcg PO DAILY 01/26/20 01/26/20 History Montelukast [Singulair] 10 mg PO DAILY 01/26/20 01/26/20 History Oxybutynin Xl [Ditropan Xl] 5 mg PO DAILY 01/26/20 01/26/20 History Pod-Tmen-Llcgs Acid 1 cap PO DAILY 01/26/20 01/26/20 History [-U Capsule (formulary)] Allergies Allergy/AdvReac Type Severity Reaction Status Date / Time nickel Allergy Rash/Hives Verified 01/26/20 12:38 sulfamethoxazole Allergy Rash/Hives Verified 01/26/20 12:38 [From ] trimethoprim [From ] Allergy Rash/Hives Verified 01/26/20 12:38 corn AdvReac Diarrhea Verified 01/26/20 12:38 Surgical - Exam - General well developed, well nourished, no distress - Neck no masses, trachea midline - Respiratory normal respiratory effort - Abdomen Abdomen: soft, tender (Mild left lower quadrant tenderness), no guarding, no rigid, no rebound - Psychiatric oriented to time, oriented to person, oriented to place, speech is normal, memory intact Results - Imaging CT scan - abdomen: report reviewed, image reviewed Assessment and Plan (1) Calculus of kidney Status: Acute Code(s): N20.0 - CALCULUS OF KIDNEY SNOMED Code(s): 18719379 Plan: Cystoscopy, right ureteroscopy with Holmium laser lithotripsy and possible stone basketing, right ureteral stent insertion. The procedure has been reviewed in detail with the patient. She has been made aware of potential risks, which include anesthesia, bleeding, infection, and ureteral injury. She is aware of the possible need for secondary procedure.
--- NOTE | 2021-09-09 06:59 | XR ---
EXAMINATION TYPE: XR KUB DATE OF EXAM: 09/09/2021 COMPARISON: 06/28/2017 HISTORY: Renal calculus TECHNIQUE: Single view supine FINDINGS: There is no sign of intestinal obstruction or pneumoperitoneum. Fecal pattern is normal. Th ere is a possible 5 mm calculus over the right kidney. There are surgical clips over the right sacroi liac joint. No evidence of abdominal mass. Fecal pattern is normal. IMPRESSION: Possible right renal calculus that appears new compared to the old exam.
[2021-09-09] MEDS ORDERED: HYDROmorphone 0.5 MG/0.5 ML SYRINGE IVP PRN (07:13)
[2021-09-09] MEDS ORDERED: LACTATED RINGERS 1,000 ML IV SCH (07:13)
[2021-09-09] MEDS ORDERED: LIDOCAINE 1% (10MG/ML) FOR IV START INTRADERMA PRN (07:13)
[2021-09-09] MEDS ORDERED: MIDAZOLAM 2 MG/2 ML VIAL IV PRN (07:13)
[2021-09-09] MEDS ORDERED: DEXAMETHASONE SOD PHOSPHATE 4 MG/ML 1 ML VIAL IV ONE (07:13)
[2021-09-09] MEDS ORDERED: ONDANSETRON 4 MG/2 ML VIAL IVP ONE (07:13)
[2021-09-09 07:28] LABS: Glucose,Whole Blood 101 mg/dL (70-110)
[2021-09-09] MEDS ORDERED: SCOPOLAMINE 1 MG/72 HR PATCH TRANSDERM ONE (07:39)
--- NOTE | 2021-09-09 09:19 | FL ---
EXAMINATION TYPE: FL guidance operating room DATE OF EXAM: 09/09/2021 HISTORY: Fluoroscopy time 10 seconds of fluoroscopy provided. IMPRESSION: 1. Fluoroscopy time.
[2021-09-09] MEDS ORDERED: NEOSTIGMINE 1 MG/ML 10 ML VIAL ONE (09:26)
[2021-09-09] MEDS ORDERED: SUCCINYLCHOLINE CHLORIDE 100 MG/5 ML SYR IV ONE (09:26)
[2021-09-09] MEDS ORDERED: PROPOFOL 10 MG/ML 20 ML VIAL IV ONE (09:26)
[2021-09-09] MEDS ORDERED: ROCURONIUM 10 MG/ML (5 ML VIAL) IV ONE (09:26)
[2021-09-09] MEDS ORDERED: MIDAZOLAM 2 MG/2 ML VIAL ONE (09:26)
[2021-09-09] MEDS ORDERED: LIDOCAINE 4% LTA KIT (4 ML) TOPICAL ONE (09:26)
[2021-09-09] MEDS ORDERED: GLYCOPYRROLATE 0.2 MG/ML 2 ML VIAL ONE (09:26)
[2021-09-09] MEDS ORDERED: fentaNYL (PF) 50 MCG/ML 2 ML AMP ONE (09:26)
[2021-09-09] MEDS ORDERED: LIDOCAINE 2% INJ 20 MG/ML (2 ML VIAL) ONE (09:26)
--- NOTE | 2021-09-09 10:40 | P.OP ---
Date of Procedure: 09/09/21 Preoperative Diagnosis: Right renal calculus Postoperative Diagnosis: Same Procedure(s) Performed: Cystoscopy, right ureteroscopy with Holmium laser lithotripsy and stone basketing, right ureteral stent insertion Anesthesia: LEON Surgeon: Augustus Lockwood Estimated Blood Loss (ml): 0 IV fluids (ml): 600 Pathology: other (Calculus fragments, sent for chemical analysis) Condition: stable Disposition: PACU Indications for Procedure: The patient is a 26-year-old white female who experienced left flank pain during in 2019. She was found to have hydronephrosis at that time. She now presents with bilateral flank and abdominal pain. CT scan shows a 9 mm right renal calculus, with no evidence of hydronephrosis. Bilateral subcentimeter renal cysts are also seen. She has been offered the options of observation, extracorporal shockwave lithotripsy (ESWL), and ureteroscopy with laser lithotripsy. She has elected to undergo the latter and comes for this reason. Operative Findings: Right mid pole renal calculus, fragmented and removed completely. Description of Procedure: The patient was taken to the operating room and placed in the dorsolithotomy position, with legs supported in Arnav stirrups. The external genitalia was prepped and draped sterilely. The 30 lens was used to introduce the 21-Lebanese Nesbitt cystoscopic sheath through the urethra and into the bladder under direct vision. The bladder was examined in its entirety. Both ureteral orifices were normal anatomic location and configuration, and clear urine effluxed from both. No tumors or foreign bodies were seen. A 0.038 inch Glidewire was passed through the cystoscope. The right ureteral orifice was cannulated, and the Glidewire was advanced up to the renal pelvis. The cystoscope was removed, and an 11/13-Lebanese ureteral access catheter was passed over the wire, up to the proximal ureter. The Nesbitt Maxymiserra flexible ureteroscope was then passed through the ureteral access catheter sheath, up to the right renal pelvis. The calculus was located within a mid pole calyx. The 272 micron Holmium laser probe was passed through the ureteroscope, and lithotripsy was performed utilizing a dusting mode. However, the calculus began to fragment and the 1.9-Lebanese nitinol basket was used to remove all calculus fragments. These were saved and sent for chemical analysis. The ureteroscope was removed. The Glidewire was passed up to the right renal pelvis. The ureteral access catheter sheath was removed, and the Glidewire was backloaded into the cystoscope, which was passed into the bladder. A 22 cm, 6-Lebanese double-J ureteral stent was placed over the wire. Proper stent positioning was verified fluoroscopically and endoscopically. The bladder was emptied and the cystoscope removed. The patient tolerated the procedure well and was taken to the recovery room in stable condition. [facility] Report: Procedure Acuity: Elective Stone Size and Location: 9 mm, right mid pole calyx Ureteral Dilation: No Ureteral Access Sheath Used: Yes Stone Sent for Analysis: Yes All Stones/Fragments Were Removed with a Basket: Yes Complications: No Preoperative Antibiotics Given: Yes Stent Placed: Yes If Stent Placed, Was String Left Attached: No If Stent Placed, When is it to be Removed: 3-5 days Discharge Medications: Tolterodine, Toradol
[2021-09-09 10:45] VITALS: RESP 16; TEMP 97.6
[2021-09-09 12:48] VITALS: BP 116/80; PULSE 86
--- NOTE | 2021-09-10 13:29 | FL ---
EXAMINATION TYPE: FL guidance operating room DATE OF EXAM: 09/09/2021 HISTORY: Fluoroscopy time 6 seconds of fluoroscopy time supplied. 2 intraoperative C-arm images document the procedure MTDD
== END 2021-09-09 13:10 | disposition home or self-care (01) ==
LOC: OR 06:38
PROVIDERS: ATTEND Urology
DX: N20.0 Calculus of kidney (principal); J45.909 Unspecified asthma, uncomplicated; E05.00 Thyrotoxicosis with diffuse goiter without thyrotoxic crisis or storm; I34.0 Nonrheumatic mitral (valve) insufficiency; Z90.49 Acquired absence of other specified parts of digestive tract; F41.9 Anxiety disorder, unspecified; F32.A Depression, unspecified; Z82.5 Family history of asthma and other chronic lower respiratory diseases; Z82.49 Family history of ischemic heart disease and other diseases of the circulatory system; Z82.3 Family history of stroke; Z79.51 Long term (current) use of inhaled steroids; Z79.899 Other long term (current) drug therapy; Z79.890 Hormone replacement therapy; Z88.2 Allergy status to sulfonamides; Z88.3 Allergy status to other anti-infective agents; Z91.09 Other allergy status, other than to drugs and biological substances; Z91.018 Allergy to other foods
CPT/HCPCS: 81025; 82365; 74018; 52356; C1758; C1769; C2625; J2250; J1100; J2710; J2405; J3010; J0330; J2704; J1170; J2001

== ENCOUNTER → 2021-10-05 | Outpatient (CLI) | payer OTHER ==
--- NOTE | 2021-10-05 16:57 | US ---
EXAMINATION TYPE: Transabdominal DATE OF EXAM: 10/05/2021 4:40 PM COMPARISON: NONE CLINICAL HISTORY: R110,[id number]. early bleeding, verify dates EXAM PERFORMED: Transvaginal (TV) and Transabdominal (TA) EXAM MEASUREMENTS: GESTATIONAL AGE / DATING Dates by LMP: (6 weeks/2 days) EDC: 05/29/2022 Dates by First Scan: no IUP seen MATERNAL ANATOMY Uterus: 9.2 x 2.9 x 4.4cm, anteverted, wnl, endometrial stripe Right Ovary: 3.3 x 2.2 x 1.8cm, wnl5mm Left Ovary: 3.3 x 2.4 x 1.9cm, wnl Post CDS / Adnexa: wnl Presence of free fluid: no Presence of corpus luteal cyst: no No IUP seen. Normal pelvic ultrasound. IMPRESSION: No evidence of intrauterine gestational sac in this patient with a positive B-hCG. This can be seen i n early , ectopic and spontaneous . Follow up pelvic ultrasound in 5-7 day s and serial beta hCG studies are recommended.
[2021-10-05 17:16] LABS: HCG,Quantitative Serum <2.4 mIU/mL
== END | disposition home or self-care (01) ==
LOC: RADUSWWP 16:18
PROVIDERS: ATTEND Family Medicine
DX: R11.0 Nausea (principal); Z33.1 Pregnant state, incidental
CPT/HCPCS: 76801; 76817; 84443; 84702

== ENCOUNTER 2021-12-01 14:52 | Emergency (ER) | payer OTHER ==
[2021-12-01 15:32] VITALS: TEMP 98.9
[2021-12-01 15:57] LABS: Appearance,Urine Cloudy (Clear); Bacteria,Urine Moderate /hpf; Bilirubin,Urine Negative (Negative); Blood,Urine Negative (Negative); Color,Urine Yellow; Glucose,Urine (UA) Negative (Negative); Hyaline Casts,Urine 1 /lpf (0-2); Ketones,Urine Negative (Negative); Leukocyte Esterase,Urine Moderate (Negative); Mucus,Urine Rare /hpf; Nitrite,Urine Negative (Negative); Protein,Urine Negative (Negative); RBC,Urine 3 /hpf (0-5); Specific Gravity,Urine 1.023 (1.001-1.035); Squamous Epithelial Cell,Urine 3 /hpf (0-4); Urobilinogen,Urine <2.0 mg/dL (<2.0); WBC,Urine 4 /hpf (0-5)
[2021-12-01] MEDS ORDERED: SODIUM CHLORIDE 0.9% 1,000 ML IV ONE (16:28)
[2021-12-01 17:02] LABS: Basophils # (A) 0.1 k/uL (0-0.2); Basophils % (A) 1 %; Eosinophils # (A) 0.3 k/uL (0-0.7); Eosinophils % (A) 3 %; HCT 40.7 % (34.0-46.0); Lymphocytes # (A) 2.9 k/uL (1.0-4.8); Lymphocytes % (A) 30 %; MCH 31.9 pg (25.0-35.0); MCHC 34.3 g/dL (31.0-37.0); Mean Platelet Volume 7.3; Monocytes # (A) 0.3 k/uL (0-1.0); Monocytes % (A) 3 %; Neutrophils # (A) 5.9 k/uL (1.3-7.7); Neutrophils % (A) 62 %; Platelet Count 339 k/uL (150-450); RBC 4.37 m/uL (3.80-5.40); RDW 12.1 % (11.5-15.5); WBC 9.6 k/uL (3.8-10.6)
[2021-12-01] MEDS ORDERED: KETOROLAC 15 MG/ML 1 ML VIAL IVP STA (17:05)
[2021-12-01 17:11] LABS: INR 0.9 (<1.2); Partial Thromboplastin Time 24.1 sec (22.0-30.0); Prothrombin Time 10.3 sec (9.0-12.0)
[2021-12-01 17:19] LABS: ALT 33 U/L (4-34); AST 25 U/L (14-36); African American GFR (CKD) >90 (>60 ml/min/1.73 sqM); Albumin 4.9 g/dL (3.5-5.0); Alkaline Phosphatase 73 U/L (38-126); Anion Gap 17 mmol/L; Blood Urea Nitrogen 18 mg/dL (7-17); Calcium 9.4 mg/dL (8.4-10.2); Carbon Dioxide 20 mmol/L (22-30); Chloride 102 mmol/L (98-107); Glucose 88 mg/dL (74-99); Non-African American GFR(CKD) >90 (>60 ml/min/1.73 sqM); Potassium 4.2 mmol/L (3.5-5.1); Sodium 139 mmol/L (137-145); Total Bilirubin 0.3 mg/dL (0.2-1.3); Total Protein 7.8 g/dL (6.3-8.2)
[2021-12-01 17:35] LABS: HCG,Quantitative Serum <2.4 mIU/mL
--- NOTE | 2021-12-01 18:08 | US ---
EXAMINATION TYPE: US transvaginal DATE OF EXAM: 12/01/2021 COMPARISON: 10/23/21 CLINICAL HISTORY: pelvic pain. pelvic pain x 3 days. Pt states she had a positive pg test 3 days ago, but today's test was negative. . TECHNIQUE: . Transvaginal sonographic images of the pelvis were acquired Date of LMP: Unknown EXAM MEASUREMENTS: Uterus: 9.0 x 4.3 x 3.8 cm Endometrial Stripe: 1.1 cm Right Ovary: 2.4 x 2.5 x 1.5 cm Left Ovary: 2.9 x 2.1 x 2.2 cm 1. Uterus: Anteverted wnl 2. Endometrium: wnl 3. Right Ovary: wnl 4. Left Ovary: wnl Spectral, color and waveform doppler imaging shows good arterial and venous flow within the ovaries ; there is no evidence for ovarian torsion. 5. Bilateral Adnexa: wnl 6. Posterior cul-de-sac: Small amount of free fluid seen IMPRESSION: No evidence of acute pelvic process. 1. Arterial and venous spectral waveforms to the ovaries.
[2021-12-01] MEDS ORDERED: MORPHINE SULFATE 4 MG/ML SYRINGE IVP STA (18:19)
[2021-12-01 18:41] VITALS: BP 137/94; PULSE 75; RESP 18
--- NOTE | 2021-12-01 19:27 | CT ---
EXAMINATION TYPE: CT abdomen pelvis w con CT DLP: 1043.3 mGycm, Automated exposure control for dose reduction was used. DATE OF EXAM: 12/01/2021 6:45 PM COMPARISON: CT abdomen pelvis most recent from 10/31/2014 CLINICAL INDICATION:Female, 26 years old with history of pelvic pain; pt c/o pelvic pain and positive home test but HCG blood and urine at hospital today are NEG as well as NEG US for pregnanc y TECHNIQUE: Axial CT of the abdomen and pelvis. Sagittal and coronal reformats were created on a [employer] workstation. Contrast used:100 mL of Isovue 370 with IV Contrast, Oral contrast used: without Oral Contrast FINDINGS: LOWER CHEST: Unremarkable ABDOMEN LIVER: Diffusely hypoattenuating parenchyma. GALLBLADDER AND BILE DUCTS: Unremarkable. PANCREAS: Unremarkable. SPLEEN: Unremarkable. ADRENAL GLANDS: Unremarkable. KIDNEYS AND URETERS: No evidence of hydronephrosis or renal calculus. PELVIS BLADDER: Unremarkable REPRODUCTIVE: Hyperemic endometrium with corpus luteum in the left ovary. ABDOMEN & PELVIS STOMACH AND BOWEL: No evidence of bowel obstruction. Surgical changes cecum PERITONEUM: No evidence of pneumoperitoneum or free fluid. VASCULATURE: No evidence of aortic aneurysm. MUSCULOSKELETAL: No acute osseous abnormalities, mild multilevel disc degeneration changes. LYMPH NODES: No gross evidence for lymphadenopathy. SOFT TISSUE/ABDOMINAL WALL: Unremarkable IMPRESSION: 1. No evidence for acute abdominal process. 2. Marked Hepatic steatosis.
--- NOTE | 2021-12-01 19:49 | ED ---
General Adult HPI - General Chief complaint: Abdominal Pain Stated complaint: ABD/Pelvc pain Time Seen by Provider: 12/01/21 16:12 Source: patient Mode of arrival: ambulatory Limitations: no limitations - History of Present Illness Initial comments: Patient is a 26-year-old female presenting with chief complaint of pelvic pain. Patient states she's had vague pelvic pain for a few days, today she states the pain is worse. She rates it feels sharp and is located all across the pelvis, it is not worse on one side. She denies any discharge or bleeding. Patient states that several days ago she had a positive urine test. She states that today she had a negative urine test. She denies any upper abdominal pain, nausea, vomiting, dysuria, hematuria, diarrhea, hematochezia, melena. Patient states she has no suspicion for STI as she has had the same partner for several years. - Related Data Home Medications Medication Instructions Recorded Confirmed Albuterol Inhaler [Ventolin Hfa 2 puff INHALATION RT-QID PRN 01/26/20 12/01/21 Inhaler] Levothyroxine Sodium [Synthroid] 137 mcg PO DAILY 01/26/20 12/01/21 ALPRAZolam [Xanax] 1 mg PO TID PRN 09/07/21 12/01/21 ARIPiprazole [Abilify] 2 mg PO DAILY 09/07/21 12/01/21 Sertraline [Zoloft] 100 mg PO HS 09/07/21 12/01/21 Allergies Allergy/AdvReac Type Severity Reaction Status Date / Time amoxicillin Allergy Rash/Hives Verified 12/01/21 15:32 nickel Allergy Rash/Hives Verified 12/01/21 15:32 sulfamethoxazole Allergy Rash/Hives Verified 12/01/21 15:32 [From Octra] trimethoprim [From ] Allergy Rash/Hives Verified 12/01/21 15:32 corn AdvReac Diarrhea Verified 12/01/21 15:32 Review of Systems ROS Statement: Those systems with pertinent positive or pertinent negative responses have been documented in the HPI. ROS Other: All systems not noted in ROS Statement are negative. Past Medical History Past Medical History: Asthma Additional Past Medical History / Comment(s): right ovarian cyst, collitus, R Overy twice the size as laft overy. Endomertriosis in the past and small part of uterus removed. Enlarged liver. Graves disease. mitral valve regugitation. History of Any Multi-Drug Resistant Organisms: None Reported Past Surgical History: Appendectomy, Section Additional Past Surgical History / Comment(s): growth removed from right ovary and small amount of uterus remover due to pos endometrosis. Poly cycstic ovarian desease. Past Psychological History: Anxiety, Depression Smoking Status: Never smoker Past Alcohol Use History: Occasional Past Drug Use History: None Reported - Past Family History Mother Family Medical History: Asthma Father Family Medical History: Coronary Artery Disease (CAD), CVA/TIA Brother(s) Family Medical History: Asthma General Exam Limitations: no limitations General appearance: alert, in no apparent distress Head exam: Present: atraumatic, normocephalic, normal inspection Eye exam: Present: normal appearance, PERRL, EOMI. Absent: scleral icterus, conjunctival injection, periorbital swelling Neck exam: Present: normal inspection Respiratory exam: Present: normal lung sounds bilaterally. Absent: respiratory distress, wheezes, rales, rhonchi, stridor Cardiovascular Exam: Present: regular rate, normal rhythm, normal heart sounds. Absent: systolic murmur, diastolic murmur, rubs, gallop, clicks GI/Abdominal exam: Present: soft, tenderness (pelvic ). Absent: distended, g uarding, rebound, rigid External exam: Present: other (Patient declined pelvic exam) Neurological exam: Present: alert, oriented X3, CN II-XII intact Psychiatric exam: Present: normal affect, normal mood Skin exam: Present: warm, dry, intact, normal color. Absent: rash Course Vital Signs 12/01/21 12/01/21 15:30 18:40 Temperature 98.9 F Pulse Rate 106 H 75 Respiratory 16 18 Rate Blood Pressure 124/87 137/94 O2 Sat by Pulse 96 100 Oximetry Medical Decision Making - Medical Decision Making Patient is a 26-year-old female presenting with chief complaint of pelvic pain. She has had vague pelvic pain for a few days and today it acutely worsened. No bleeding or discharge. No fever or chills. On examination there is some tenderness on palpation over the bilateral pelvis. Patient declined pelvic exam, states that she has had the same sexual partner for several years and is not concerned about STI's at this time. Lab work shows no leukocytosis or anemia. CMP is unremarkable. Urine shows moderate leukocytes with 4 urine WBC, urine is sent for culture. Will not treat for UTI at this time as patient is not having symptoms. Urine hCG is negative. Transvaginal ultrasound shows no acute process. CT of the abdomen and pelvis with contrast shows no acute process to account for symptoms. On reassessment patient's pain is well controlled. I discussed these findings with the patient. I offered to send a genital culture and offered treatment for PID, patient declined at this time. She is of sound mind and able to make her own decisions. Follow-up with OUTREACH ASSISTANT. Follow-up with PCP. Report back to ER with any new or worsening symptoms. Disc ussed return parameters and answered all questions. Patient conveyed verbal understanding and agreed to the plan. I discussed this case in detail with my attending Dr. Forte. - Lab Data Result diagrams: 12/01/21 16:45 12/01/21 16:45 Lab Results 12/01/21 12/01/21 12/01/21 Range/Units 15:40 15:40 16:45 WBC 9.6 (3.8-10.6) k/uL RBC 4.37 (3.80-5.40) m/uL Hgb 14.0 (11.4-16.0) gm/dL Hct 40.7 (34.0-46.0) % MCV 93.0 (80.0-100.0) fL MCH 31.9 (25.0-35.0) pg MCHC 34.3 (31.0-37.0) g/dL RDW 12.1 (11.5-15.5) % Plt Count 339 (150-450) k/uL MPV 7.3 Neutrophils % 62 % Lymphocytes % 30 % Monocytes % 3 % Eosinophils % 3 % Basophils % 1 % Neutrophils # 5.9 (1.3-7.7) k/uL Lymphocytes # 2.9 (1.0-4.8) k/uL Monocytes # 0.3 (0-1.0) k/uL Eosinophils # 0.3 (0-0.7) k/uL Basophils # 0.1 (0-0.2) k/uL PT (9.0-12.0) sec INR (<1.2) APTT (22.0-30.0) sec Sodium (137-145) mmol/L Potassium (3.5-5.1) mmol/L Chloride (98-107) mmol/L Carbon Dioxide (22-30) mmol/L Anion Gap mmol/L BUN (7-17) mg/dL Creatinine (0.52-1.04) mg/dL Est GFR (CKD-EPI)AfAm (>60 ml/min/1.73 sqM) Est GFR (CKD-EPI)NonAf (>60 ml/min/1.73 sqM) Glucose (74-99) mg/dL Calcium (8.4-10.2) mg/dL Total Bilirubin (0.2-1.3) mg/dL AST (14-36) U/L ALT (4-34) U/L Alkaline Phosphatase (38-126) U/L Total Protein (6.3-8.2) g/dL Albumin (3.5-5.0) g/dL HCG, Quant mIU/mL Urine Color Yellow Urine Appearance Cloudy H (Clear) Urine pH 6.0 (5.0-8.0) Ur Specific [place] 1.023 (1.001-1.035) Urine Protein Negative (Negative) Urine Glucose (UA) Negative (Negative) Urine Ketones Negative (Negative) Urine Blood Negative (Negative) Urine Nitrite Negative (Negative) Urine Bilirubin Negative (Negative) Urine Urobilinogen <2.0 (<2.0) mg/dL Ur Leukocyte Esterase Moderate H (Negative) Urine RBC 3 (0-5) /hpf Urine WBC 4 (0-5) /hpf Ur Squamous Epith Cells 3 (0-4) /hpf Urine Bacteria Moderate H (None) /hpf Hyaline Casts 1 (0-2) /lpf Urine Mucus Rare H (None) /hpf Urine HCG, Qual Not Detected (Not Detectd) 12/01/21 12/01/21 Range/Units 16:45 16:45 WBC (3.8-10.6) k/uL RBC (3.80-5.40) m/uL Hgb (11.4-16.0) gm/dL Hct (34.0-46.0) % MCV (80.0-100.0) fL MCH (25.0-35.0) pg MCHC (31.0-37.0) g/dL RDW (11.5-15.5) % Plt Count (150-450) k/uL MPV Neutrophils % % Lymphocytes % % Monocytes % % Eosinophils % % Basophils % % Neutrophils # (1.3-7.7) k/uL Lymphocytes # (1.0-4.8) k/uL Monocytes # (0-1.0) k/uL Eosinophils # (0-0.7) k/uL Basophils # (0-0.2) k/uL PT 10.3 (9.0-12.0) sec INR 0.9 (<1.2) APTT 24.1 (22.0-30.0) sec Sodium 139 (137-145) mmol/L Potassium 4.2 (3.5-5.1) mmol/L Chloride 102 (98-107) mmol/L Carbon Dioxide 20 L (22-30) mmol/L Anion Gap 17 mmol/L BUN 18 H (7-17) mg/dL Creatinine 0.69 (0.52-1.04) mg/dL Est GFR (CKD-EPI)AfAm >90 (>60 ml/min/1.73 sqM) Est GFR (CKD-EPI)NonAf >90 (>60 ml/min/1.73 sqM) Glucose 88 (74-99) mg/dL Calcium 9.4 (8.4-10.2) mg/dL Total Bilirubin 0.3 (0.2-1.3) mg/dL AST 25 (14-36) U/L ALT 33 (4-34) U/L Alkaline Phosphatase 73 (38-126) U/L Total Protein 7.8 (6.3-8.2) g/dL Albumin 4.9 (3.5-5.0) g/dL HCG, Quant <2.4 mIU/mL Urine Color Urine Appearance (Clear) Urine pH (5.0-8.0) Ur Specific [place] (1.001-1.035) Urine Protein (Negative) Urine Glucose (UA) (Negative) Urine Ketones (Negative) Urine Blood (Negative) Urine Nitrite (Negative) Urine Bilirubin (Negative) Urine Urobilinogen (<2.0) mg/dL Ur Leukocyte Esterase (Negative) Urine RBC (0-5) /hpf Urine WBC (0-5) /hpf Ur Squamous Epith Cells (0-4) /hpf Urine Bacteria (None) /hpf Hyaline Casts (0-2) /lpf Urine Mucus (None) /hpf Urine HCG, Qual (Not Detectd) Disposition Clinical Impression: Pelvic pain Disposition: HOME SELF-CARE Condition: Good Instructions (If sedation given, give patient instructions): Pelvic Pain in Women (ED) Additional Instructions: Follow-up with OUTREACH ASSISTANT. Report back to ER with any new or worsening symptoms. Take Motrin and Tylenol as needed for pain control. Is patient prescribed a controlled substance at d/c from ED?: No Referrals: Larisa Titus MD [Primary Care Provider] - 1-2 days Katlyn Cartagena MD [STAFF PHYSICIAN] - 1-2 days Time of Disposition: 19:49
[2021-12-02 17:18] LABS: C. trachomatis,PCR Negative (Neg,Equiv); Chlamydia trachomatis Source Urine; N. gonorrhoeae,PCR Negative (Neg,Equiv); Neisseria Source Urine
== END 2021-12-01 20:04 | disposition home or self-care (01) ==
LOC: EC 14:52
DX: R10.2 Pelvic and perineal pain (principal); J45.909 Unspecified asthma, uncomplicated; F41.9 Anxiety disorder, unspecified; F32.A Depression, unspecified; Z88.0 Allergy status to penicillin; Z91.048 Other nonmedicinal substance allergy status; Z88.2 Allergy status to sulfonamides; Z91.018 Allergy to other foods; Z79.51 Long term (current) use of inhaled steroids; Z79.890 Hormone replacement therapy; Z79.899 Other long term (current) drug therapy
CPT/HCPCS: 36415; 80053; 85025; 85610; 85730; 81001; 81025; 84702; 87491; 87591; 93975; 76830; 74177; 99284; 96374; 96375; 96361 ×2; J2270; J1885; Q9967

== ENCOUNTER 2022-01-08 16:46 | Emergency (ER) | payer OTHER ==
[2022-01-08 17:15] LABS: Mucus,Urine Rare /hpf; RBC,Urine <1 /hpf (0-5); Squamous Epithelial Cell,Urine 2 /hpf (0-4); WBC,Urine 1 /hpf (0-5)
[2022-01-08 17:36] LABS: Appearance,Urine Clear (Clear); Color,Urine Light Yellow; Protein,Urine 0 (Negative); Specific Gravity,Urine 1.025 (1.001-1.035)
[2022-01-08 17:37] LABS: Bilirubin,Urine Negative (Negative); Blood,Urine Negative (Negative); Glucose,Urine (UA) Negative (Negative); Ketones,Urine Negative (Negative); Leukocyte Esterase,Urine Negative (Negative); Nitrite,Urine Negative (Negative)
[2022-01-08 17:38] LABS: Urobilinogen,Urine <2.0 mg/dL (<2.0)
[2022-01-08] MEDS ORDERED: ONDANSETRON 4 MG/2 ML VIAL IVP STA (18:57)
[2022-01-08] MEDS ORDERED: SODIUM CHLORIDE 0.9% 1,000 ML IV STA (18:57)
[2022-01-08] MEDS ORDERED: MORPHINE SULFATE 2 MG/ML SYRINGE IVP STA (18:57)
--- NOTE | 2022-01-08 19:03 | ED ---
General Adult HPI - General Chief complaint: Abdominal Pain Stated complaint: Lower ABD pain Time Seen by Provider: 01/08/22 18:44 Source: patient, RN notes reviewed Mode of arrival: ambulatory Limitations: no limitations - History of Present Illness Initial comments: 26-year-old female presents to the emergency Department with complaints of left lower quadrant abdominal pain. Patient states pain radiates to the left flank and back. Reports taking Motrin prior to arrival with no improvement. States she is feeling nauseous, but denies vomiting. Patient states she is trying to get . Last regular menstrual cycle was in November, however does report 2 days of spotting last week. Patient had kidney stones in the past and this discomfort is similar. Denies fever, chills, headache, dizziness, chest pain, cough, vomiting, diarrhea, constipation, and dysuria. - Related Data Home Medications Medication Instructions Recorded Confirmed Albuterol Inhaler [Ventolin Hfa 2 puff INHALATION RT-QID PRN 01/26/20 12/01/21 Inhaler] Levothyroxine Sodium [Synthroid] 137 mcg PO DAILY 01/26/20 12/01/21 ALPRAZolam [Xanax] 1 mg PO TID PRN 09/07/21 12/01/21 ARIPiprazole [Abilify] 2 mg PO DAILY 09/07/21 12/01/21 Sertraline [Zoloft] 100 mg PO HS 09/07/21 12/01/21 Allergies Allergy/AdvReac Type Severity Reaction Status Date / Time amoxicillin Allergy Rash/Hives Verified 01/08/22 16:58 nickel Allergy Rash/Hives Verified 01/08/22 16:58 sulfamethoxazole Allergy Rash/Hives Verified 01/08/22 16:58 [From Septra] trimethoprim [From Octra] Allergy Rash/Hives Verified 01/08/22 16:58 corn AdvReac Diarrhea Verified 01/08/22 16:58 Review of Systems ROS Statement: Those systems with pertinent positive or pertinent negative responses have been documented in the HPI. ROS Other: All systems not noted in ROS Statement are negative. Past Medical History Past Medical History: Asthma Additional Past Medical History / Comment(s): right ovarian cyst, collitus, R Overy twice the size as laft overy. Endomertriosis in the past and small part of uterus removed. Enlarged liver. Graves disease. mitral valve regugitation. History of Any Multi-Drug Resistant Organisms: None Reported Past Surgical History: Appendectomy, Section Additional Past Surgical History / Comment(s): growth removed from right ovary and small amount of uterus remover due to pos endometrosis. Poly cycstic ovarian desease. Past Psychological History: Anxiety, Depression Smoking Status: Never smoker Past Alcohol Use History: Occasional Past Drug Use History: None Reported - Past Family History Mother Family Medical History: Asthma Father Family Medical History: Coronary Artery Disease (CAD), CVA/TIA Brother(s) Family Medical History: Asthma General Exam Limitations: no limitations (Well-developed, well-nourished female in no acute distress. Initial temperature 98.5, pulse 120, respirations 18, blood pressure 127/88, pulse ox 99% on room air.) General appearance: alert, in no apparent distress Eye exam: Present: normal appearance. Absent: scleral icterus, conjunctival injection, periorbital swelling, periorbital tenderness ENT exam: Present: normal exam, normal oropharynx, mucous membranes moist Neck exam: Present: normal inspection, full ROM. Absent: lymphadenopathy Respiratory exam: Present: normal lung sounds bilaterally. Absent: respiratory distress, wheezes, rales, rhonchi, stridor Cardiovascular Exam: Present: normal rhythm, tachycardia, normal heart sounds. Absent: systolic murmur, diastolic murmur, rubs, gallop, clicks GI/Abdominal exam: Present: soft, tenderness (mild tenderness upon palpation of the left. Not accompanied by rebound or guarding.), normal bowel sounds. Absent: distended, guarding, rebound, rigid Back exam: Absent: CVA tenderness (R), CVA tenderness (L) Neurological exam: Present: alert, oriented X3, CN II-XII intact Psychiatric exam: Present: normal affect, normal mood Skin exam: Present: warm, dry, intact, normal color. Absent: rash Course Vital Signs 01/08/22 01/08/22 01/08/22 16:56 19:40 20:50 Temperature 98.5 F 98.6 F 98.0 F Pulse Rate 120 H 92 68 Respiratory 18 17 16 Rate Blood Pressure 127/88 132/96 125/86 O2 Sat by Pulse 99 96 97 Oximetry 01/08/22 21:15 Temperature 97.9 F Pulse Rate 75 Respiratory 18 Rate Blood Pressure 122/89 O2 Sat by Pulse 97 Oximetry - Reevaluation(s) Reevaluation #1: 01/08/22 20:23 Upon reevaluation, patient reports some improvement in pain. Discussed results of laboratory studies. States she was most concerned about kidney stone and and is reassured by findings. Discussed imaging and she declines. Medical Decision Making - Medical Decision Making This is well-appearing female 26-year-old female who presents to the emergency Department with complaints of lower abdominal pain that radiates to the right flank and back, onset this afternoon. Upon exam, patient is in no acute distress. She does have mild tenderness upon palpation of the lower abdomen and suprapubic region. There is concern for , acute cystitis, and kidney stones. Laboratory studies will be obtained and imaging will be held pending test. Vital signs stable with the exception of tachycardia which improved with pain control and fluids. She is afebrile with normal laboratory studies. Urinalysis negative for . Results were discussed with patient. Imaging was deferred in shared decision making. She will be discharged home to follow up with her PCP for recheck as needed. Return parameters were discussed in detail. Patient verbalizes understanding and agrees with this plan. Attending: Yoni - Lab Data Result diagrams: 01/08/22 19:34 01/08/22 19:34 Lab Results 01/08/22 01/08/22 01/08/22 Range/Units 17:03 17:03 19:34 WBC 9.1 (3.8-10.6) k/uL RBC 4.54 (3.80-5.40) m/uL Hgb 14.7 (11.4-16.0) gm/dL Hct 42.1 (34.0-46.0) % MCV 92.7 (80.0-100.0) fL MCH 32.5 (25.0-35.0) pg MCHC 35.0 (31.0-37.0) g/dL RDW 12.0 (11.5-15.5) % Plt Count 319 (150-450) k/uL MPV 7.3 Neutrophils % 58 % Lymphocytes % 33 % Monocytes % 4 % Eosinophils % 3 % Basophils % 1 % Neutrophils # 5.3 (1.3-7.7) k/uL Lymphocytes # 3.0 (1.0-4.8) k/uL Monocytes # 0.4 (0-1.0) k/uL Eosinophils # 0.3 (0-0.7) k/uL Basophils # 0.1 (0-0.2) k/uL Sodium (137-145) mmol/L Potassium (3.5-5.1) mmol/L Chloride (98-107) mmol/L Carbon Dioxide (22-30) mmol/L Anion Gap mmol/L BUN (7-17) mg/dL Creatinine (0.52-1.04) mg/dL Est GFR (CKD-EPI)AfAm (>60 ml/min/1.73 sqM) Est GFR (CKD-EPI)NonAf (>60 ml/min/1.73 sqM) Glucose (74-99) mg/dL Calcium (8.4-10.2) mg/dL Total Bilirubin (0.2-1.3) mg/dL AST (14-36) U/L ALT (4-34) U/L Alkaline Phosphatase (38-126) U/L Total Protein (6.3-8.2) g/dL Albumin (3.5-5.0) g/dL Lipase (23-300) U/L Urine Color Light Yellow Urine Appearance Clear (Clear) Urine pH 6.0 (5.0-8.0) Ur Specific [place] 1.025 (1.001-1.035) Urine Protein 0 (Negative) Urine Glucose (UA) Negative (Negative) Urine Ketones Negative (Negative) Urine Blood Negative (Negative) Urine Nitrite Negative (Negative) Urine Bilirubin Negative (Negative) Urine Urobilinogen <2.0 (<2.0) mg/dL Ur Leukocyte Esterase Negative (Negative) Urine RBC <1 (0-5) /hpf Urine WBC 1 (0-5) /hpf Ur Squamous Epith Cells 2 (0-4) /hpf Urine Mucus Rare H (None) /hpf Urine HCG, Qual Not Detected (Not Detectd) 01/08/22 Range/Units 19:34 WBC (3.8-10.6) k/uL RBC (3.80-5.40) m/uL Hgb (11.4-16.0) gm/dL Hct (34.0-46.0) % MCV (80.0-100.0) fL MCH (25.0-35.0) pg MCHC (31.0-37.0) g/dL RDW (11.5-15.5) % Plt Count (150-450) k/uL MPV Neutrophils % % Lymphocytes % % Monocytes % % Eosinophils % % Basophils % % Neutrophils # (1.3-7.7) k/uL Lymphocytes # (1.0-4.8) k/uL Monocytes # (0-1.0) k/uL Eosinophils # (0-0.7) k/uL Basophils # (0-0.2) k/uL Sodium 142 (137-145) mmol/L Potassium 4.5 (3.5-5.1) mmol/L Chloride 107 (98-107) mmol/L Carbon Dioxide 25 (22-30) mmol/L Anion Gap 10 mmol/L BUN 21 H (7-17) mg/dL Creatinine 0.88 (0.52-1.04) mg/dL Est GFR (CKD-EPI)AfAm >90 (>60 ml/min/1.73 sqM) Est GFR (CKD-EPI)NonAf >90 (>60 ml/min/1.73 sqM) Glucose 95 (74-99) mg/dL Calcium 9.4 (8.4-10.2) mg/dL Total Bilirubin 0.2 (0.2-1.3) mg/dL AST 29 (14-36) U/L ALT 45 H (4-34) U/L Alkaline Phosphatase 87 (38-126) U/L Total Protein 7.9 (6.3-8.2) g/dL Albumin 4.9 (3.5-5.0) g/dL Lipase 79 (23-300) U/L Urine Color Urine Appearance (Clear) Urine pH (5.0-8.0) Ur Specific [place] (1.001-1.035) Urine Protein (Negative) Urine Glucose (UA) (Negative) Urine Ketones (Negative) Urine Blood (Negative) Urine Nitrite (Negative) Urine Bilirubin (Negative) Urine Urobilinogen (<2.0) mg/dL Ur Leukocyte Esterase (Negative) Urine RBC (0-5) /hpf Urine WBC (0-5) /hpf Ur Squamous Epith Cells (0-4) /hpf Urine Mucus (None) /hpf Urine HCG, Qual (Not Detectd) Disposition Clinical Impression: Abdominal pain Disposition: HOME SELF-CARE Condition: Stable Instructions (If sedation given, give patient instructions): Abdominal Pain (ED) Additional Instructions: Rest. Increase fluids. Continue to carefully track your menstrual cycle. Follow-up with your PCP for recheck next week if pain persists. Return to the emergency department with any new, worsening, or concerning symptoms. Is patient prescribed a controlled substance at d/c from ED?: No Referrals: Larisa Titus MD [Primary Care Provider] - 1-2 days Time of Disposition: 20:46
[2022-01-08 19:46] LABS: Basophils # (A) 0.1 k/uL (0-0.2); Basophils % (A) 1 %; Eosinophils # (A) 0.3 k/uL (0-0.7); Eosinophils % (A) 3 %; HCT 42.1 % (34.0-46.0); HGB 14.7 gm/dL (11.4-16.0); Lymphocytes % (A) 33 %; MCH 32.5 pg (25.0-35.0); MCV 92.7 fL (80.0-100.0); Mean Platelet Volume 7.3; Monocytes # (A) 0.4 k/uL (0-1.0); Monocytes % (A) 4 %; Neutrophils # (A) 5.3 k/uL (1.3-7.7); Neutrophils % (A) 58 %; Platelet Count 319 k/uL (150-450); RBC 4.54 m/uL (3.80-5.40); WBC 9.1 k/uL (3.8-10.6)
[2022-01-08 20:02] LABS: ALT 45 U/L (4-34); AST 29 U/L (14-36); African American GFR (CKD) >90 (>60 ml/min/1.73 sqM); Albumin 4.9 g/dL (3.5-5.0); Alkaline Phosphatase 87 U/L (38-126); Anion Gap 10 mmol/L; Blood Urea Nitrogen 21 mg/dL (7-17); Calcium 9.4 mg/dL (8.4-10.2); Carbon Dioxide 25 mmol/L (22-30); Chloride 107 mmol/L (98-107); Glucose 95 mg/dL (74-99); Lipase 79 U/L (23-300); Non-African American GFR(CKD) >90 (>60 ml/min/1.73 sqM); Potassium 4.5 mmol/L (3.5-5.1); Sodium 142 mmol/L (137-145); Total Bilirubin 0.2 mg/dL (0.2-1.3); Total Protein 7.9 g/dL (6.3-8.2)
[2022-01-08] MEDS ORDERED: MORPHINE SULFATE 2 MG/ML SYRINGE IVP ONE (20:23)
[2022-01-08 21:17] VITALS: BP 122/89; PULSE 75; RESP 18; TEMP 97.9
== END 2022-01-08 21:18 | disposition home or self-care (01) ==
LOC: EC 16:46
DX: R10.32 Left lower quadrant pain (principal); J45.909 Unspecified asthma, uncomplicated; F32.A Depression, unspecified; F41.9 Anxiety disorder, unspecified; Z88.1 Allergy status to other antibiotic agents; Z88.2 Allergy status to sulfonamides; Z79.51 Long term (current) use of inhaled steroids
CPT/HCPCS: 36415; 80053; 83690; 85025; 81001; 81025; 99284; 96374; 96375; 96376; 96361; J2405; J2270

== ENCOUNTER 2022-06-22 06:31 | Observation (INO) | payer MEDICAID, OTHER ==
[2022-06-22 07:06] LABS: Basophils % (A) 0 %; Eosinophils # (A) 0.1 k/uL (0-0.7); Eosinophils % (A) 2 %; HCT 42.3 % (34.0-46.0); HGB 14.9 gm/dL (11.4-16.0); Lymphocytes # (A) 2.1 k/uL (1.0-4.8); Lymphocytes % (A) 33 %; MCH 32.1 pg (25.0-35.0); MCHC 35.2 g/dL (31.0-37.0); MCV 91.2 fL (80.0-100.0); Mean Platelet Volume 7.3; Monocytes # (A) 0.3 k/uL (0-1.0); Monocytes % (A) 4 %; Neutrophils # (A) 3.9 k/uL (1.3-7.7); Neutrophils % (A) 59 %; Platelet Count 298 k/uL (150-450); RBC 4.64 m/uL (3.80-5.40); RDW 12.5 % (11.5-15.5); WBC 6.6 k/uL (3.8-10.6)
--- NOTE | 2022-06-22 07:13 | ED ---
Abdominal Pain HPI - General Chief Complaint: Abdominal Pain Stated Complaint: 5 WEEKS PREG PAIN/SPOTTING Time Seen by Provider: 06/22/22 06:42 Source: patient, RN notes reviewed Mode of arrival: ambulatory Limitations: no limitations - History of Present Illness Initial Comments: This a 27-year-old female presents emergency Department with chief complaint of left-sided abdominal pain. Patient states that she started 5 weeks states that she is A2 has not seen her current AERODYNAMICS ENGINEER in which she states she is trying to schedule appointment with Dr. Cartagena. Patient states the pain has been intermittent mild left-sided but states that she had an intense left-sided pain just concerned about possible ectopic. Patient has no dysuria she has had some light spotting. Patient states never had pain like this in the past with her prior scared. Patient does have a history kidney stones but states this is not same pain. She has no upper flank pain. - Related Data Home Medications Medication Instructions Recorded Confirmed Albuterol Inhaler [Ventolin Hfa 2 puff INHALATION RT-QID PRN 01/26/20 12/01/21 Inhaler] Levothyroxine Sodium [Synthroid] 137 mcg PO DAILY 01/26/20 12/01/21 ALPRAZolam [Xanax] 1 mg PO TID PRN 09/07/21 12/01/21 ARIPiprazole [Abilify] 2 mg PO DAILY 09/07/21 12/01/21 Sertraline [Zoloft] 100 mg PO HS 09/07/21 12/01/21 ALPRAZolam [Xanax] 1 mg PO BID PRN 05/18/22 05/18/22 Acetaminophen Tab [Tylenol Tab] 500 - 1,000 mg PO Q6HR PRN 05/18/22 05/18/22 Albuterol Nebulized [Ventolin 2.5 mg INHALATION RT-QID PRN 05/18/22 05/18/22 Nebulized] Albuterol Sulfate [Albuterol 1 - 2 puff PO RT-Q6H PRN 05/18/22 05/18/22 Sulfate Hfa] Dicyclomine [Bentyl] 10 mg PO TID PRN 05/18/22 05/18/22 Ibuprofen [Motrin Ib] 200 - 800 mg PO Q6H PRN 05/18/22 05/18/22 Levothyroxine Sodium [Synthroid] 137 mcg PO DAILY 05/18/22 05/18/22 Previous Rx's Medication Instructions Recorded Cyclobenzaprine [Flexeril] 5 mg PO TID PRN #15 tablet 05/18/22 Ibuprofen [Motrin] 600 mg PO Q8HR PRN #30 tab 05/18/22 Lidocaine 5% Patch [Lidoderm 5% 1 patch TOPICAL DAILY PRN #7 patch 05/18/22 Patch] Allergies Allergy/AdvReac Type Severity Reaction Status Date / Time amoxicillin Allergy Rash/Hives Verified 06/16/22 13:00 nickel Allergy Rash/Hives Verified 06/16/22 13:00 sulfamethoxazole Allergy Rash/Hives Verified 06/16/22 13:00 [From ] trimethoprim [From ] Allergy Rash/Hives Verified 06/16/22 13:00 corn AdvReac Diarrhea Verified 06/16/22 13:00 Review of Systems ROS Statement: Those systems with pertinent positive or pertinent negative responses have been documented in the HPI. ROS Other: All systems not noted in ROS Statement are negative. Past Medical History Past Medical History: Asthma, Mitral Valve Prolapse (MVP), Thyroid Disorder Additional Past Medical History / Comment(s): colitis History of Any Multi-Drug Resistant Organisms: None Reported Past Surgical History: Appendectomy, Section Additional Past Surgical History / Comment(s): throidectomy 09/2017 Past Psychological History: Anxiety, Depression, No Psychological Hx Reported Past Alcohol Use History: Occasional, Rare - Past Family History Mother Family Medical History: Asthma Father Family Medical History: Coronary Artery Disease (CAD), CVA/TIA Brother(s) Family Medical History: Asthma General Exam Limitations: no limitations General appearance: alert, in no apparent distress Head exam: Present: atraumatic, normocephalic, normal inspection Eye exam: Present: normal appearance, PERRL, EOMI. Absent: scleral icterus, conjunctival injection, periorbital swelling ENT exam: Present: normal exam, normal oropharynx, mucous membranes moist Neck exam: Present: normal inspection, full ROM. Absent: tenderness, meningismus, lymphadenopathy Respiratory exam: Present: normal lung sounds bilaterally. Absent: respiratory distress, wheezes, rales, rhonchi, stridor Cardiovascular Exam: Present: regular rate, normal rhythm, normal heart sounds. Absent: systolic murmur, diastolic murmur, rubs, gallop, clicks GI/Abdominal exam: Present: soft, tenderness (Left-sided), normal bowel sounds. Absent: distended, guarding, rebound, rigid Back exam: Absent: CVA tenderness (R), CVA tenderness (L) Neurological exam: Present: alert Skin exam: Present: warm, dry, intact, normal color. Absent: rash Course Vital Signs 06/22/22 06:32 Temperature 98.2 F Pulse Rate 120 H Respiratory 20 Rate Blood Pressure 134/80 O2 Sat by Pulse 98 Oximetry Medical Decision Making - Medical Decision Making Was pt. sent in by a medical professional or institution (, PA, MATERIALS RECYCLER, urgent care, hospital, or alf...) When possible be specific @ -No Did you speak to anyone other than the patient for history (EMS, parent, family, police, friend...)? What history was obtained from this source @ -No Did you review nursing and triage notes (agree or disagree)? Why? @ -I reviewed and agree with nursing and triage notes Were old charts reviewed (outside hosp., previous admission, EMS record, old EKG, old radiological studies, urgent care reports/EKG's, alf records)? Report findings @ -No old charts were reviewed Differential Diagnosis (chest pain, altered mental status, abdominal pain women, abdominal pain men, vaginal bleeding, weakness, fever, dyspnea, syncope, headache, dizziness, GI bleed, back pain, seizure, CVA, palpatations, mental health, musculoskeletal)? @ -Differential Abdominal Pain Women: Appendicitis, Cholecystitis, diverticulosis, ischemic bowel, pancreatitis, hepatitis, UTI, gastroenteritis, AAA, incarcerated hernia, bowel obstruction, constipation, inflammatory bowel, hepatitis, peptic ulcer disease, splenic infarction, perforated viscus, vulvitis, ovarian torsion, PID, kidney stone, placenta abruption, this is not meant to be an all-inclusive listt EKG interpreted by me (3pts min.). @ -None X-rays interpreted by me (1pt min.). @ -None done CT interpreted by me (1pt min.). @ -None done U/S interpreted by me (1pt. min.). @ -Ultrasound shows no IUP, there is what appears to be a corpus luteal cyst in the left 2 cm no free fluid noted What testing was considered but not performed or refused? (CT, X-rays, U/S, labs)? Why? @ -None What meds were considered but not given or refused? Why? @ -None Did you discuss the management of the patient with other professionals (professionals i.e. , PA, MATERIALS RECYCLER, lab, RT, psych nurse, social media editor, breaker off, teacher, complaint investigations officer, pillowcase maker)? Give summary @ -Discussed the case with AERODYNAMICS ENGINEER Dr. Morris given the patient's pain, beta-HCG and ultrasound findings. Patient will be FOR repeat evaluations, beta-HCG Was smoking cessation discussed for >3mins.? @ -No Was critical care preformed (if so, how long)? @ -No Were there social determinants of health that impacted care today? How? (Homelessness, low income, unemployed, alcoholism, drug addiction, transportation, low edu. Level, literacy, decrease access to med. care, [facility], rehab)? @ -No Was there de-escalation of care discussed even if they declined (Discuss DNR or withdrawal of care, Hospice)? DNR status @ -No What co-morbidities impacted this encounter? (DM, HTN, Smoking, COPD, CAD, Cancer, CVA, ARF, Chemo, Hep., AIDS, mental health diagnosis, sleep apnea, morbid obesity)? @ -None Was patient admitted / discharged? Hospital course, mention meds given and route, prescriptions, significant lab abnormalities, going to OR and other pertinent info. @ -Admitted for observation for repeat evaluations, repeat laboratory studies given the patient's pain and concern for possible ectopic. Undiagnosed new problem with uncertain prognosis? @ -No Drug Therapy requiring intensive monitoring for toxicity (Heparin, Nitro, Insulin, Cardizem)? @ -No Were any procedures done? @ -No Diagnosis/symptom? @ -Abdominal pain and rule out ectopic Acute, or Chronic, or Acute on Chronic? @ -Acute Uncomplicated (without systemic symptoms) or Complicated (systemic symptoms)? @ -Uncomplicated Side effects of treatment? @ -No Exacerbation, Progression, or Severe Exacerbation? @ -No Poses a threat to life or bodily function? How? (Chest pain, USA, OR, pneumonia, PE, COPD, DKA, ARF, appy, cholecystitis, CVA, Diverticulitis, Homicidal, Suicidal, threat to staff... and all critical care pts) @ -No - Lab Data Result diagrams: 06/22/22 06:58 06/22/22 06:58 Lab Results 06/22/22 06/22/22 06/22/22 Range/Units 06:53 06:58 06:58 WBC 6.6 (3.8-10.6) k/uL RBC 4.64 (3.80-5.40) m/uL Hgb 14.9 (11.4-16.0) gm/dL Hct 42.3 (34.0-46.0) % MCV 91.2 (80.0-100.0) fL MCH 32.1 (25.0-35.0) pg MCHC 35.2 (31.0-37.0) g/dL RDW 12.5 (11.5-15.5) % Plt Count 298 (150-450) k/uL MPV 7.3 Neutrophils % 59 % Lymphocytes % 33 % Monocytes % 4 % Eosinophils % 2 % Basophils % 0 % Neutrophils # 3.9 (1.3-7.7) k/uL Lymphocytes # 2.1 (1.0-4.8) k/uL Monocytes # 0.3 (0-1.0) k/uL Eosinophils # 0.1 (0-0.7) k/uL Basophils # 0.0 (0-0.2) k/uL Sodium 139 (137-145) mmol/L Potassium 3.9 (3.5-5.1) mmol/L Chloride 107 (98-107) mmol/L Carbon Dioxide 20 L (22-30) mmol/L Anion Gap 12 mmol/L BUN 10 (7-17) mg/dL Creatinine 0.61 (0.52-1.04) mg/dL Est GFR (CKD-EPI)AfAm >90 (>60 ml/min/1.73 sqM) Est GFR (CKD-EPI)NonAf >90 (>60 ml/min/1.73 sqM) Glucose 122 H (74-99) mg/dL Calcium 9.0 (8.4-10.2) mg/dL Total Bilirubin 0.7 (0.2-1.3) mg/dL AST 37 H (14-36) U/L ALT 61 H (4-34) U/L Alkaline Phosphatase 67 (38-126) U/L Total Protein 7.8 (6.3-8.2) g/dL Albumin 4.6 (3.5-5.0) g/dL HCG, Quant 961.4 mIU/mL Urine Color Urine Appearance (Clear) Urine pH (5.0-8.0) Ur Specific [place] (1.001-1.035) Urine Protein (Negative) Urine Glucose (UA) (Negative) Urine Ketones (Negative) Urine Blood (Negative) Urine Nitrite (Negative) Urine Bilirubin (Negative) Urine Urobilinogen (<2.0) mg/dL Ur Leukocyte Esterase (Negative) Urine RBC (0-5) /hpf Urine WBC (0-5) /hpf Ur Squamous Epith Cells (0-4) /hpf Urine Bacteria (None) /hpf Blood Type O Negative Blood Type Recheck O Neg Bld Type Recheck Status No 06/22/22 Range/Units 06:58 WBC (3.8-10.6) k/uL RBC (3.80-5.40) m/uL Hgb (11.4-16.0) gm/dL Hct (34.0-46.0) % MCV (80.0-100.0) fL MCH (25.0-35.0) pg MCHC (31.0-37.0) g/dL RDW (11.5-15.5) % Plt Count (150-450) k/uL MPV Neutrophils % % Lymphocytes % % Monocytes % % Eosinophils % % Basophils % % Neutrophils # (1.3-7.7) k/uL Lymphocytes # (1.0-4.8) k/uL Monocytes # (0-1.0) k/uL Eosinophils # (0-0.7) k/uL Basophils # (0-0.2) k/uL Sodium (137-145) mmol/L Potassium (3.5-5.1) mmol/L Chloride (98-107) mmol/L Carbon Dioxide (22-30) mmol/L Anion Gap mmol/L BUN (7-17) mg/dL Creatinine (0.52-1.04) mg/dL Est GFR (CKD-EPI)AfAm (>60 ml/min/1.73 sqM) Est GFR (CKD-EPI)NonAf (>60 ml/min/1.73 sqM) Glucose (74-99) mg/dL Calcium (8.4-10.2) mg/dL Total Bilirubin (0.2-1.3) mg/dL AST (14-36) U/L ALT (4-34) U/L Alkaline Phosphatase (38-126) U/L Total Protein (6.3-8.2) g/dL Albumin (3.5-5.0) g/dL HCG, Quant mIU/mL Urine Color Colorless Urine Appearance Cloudy H (Clear) Urine pH 6.0 (5.0-8.0) Ur Specific [place] 1.001 (1.001-1.035) Urine Protein Negative (Negative) Urine Glucose (UA) Negative (Negative) Urine Ketones Negative (Negative) Urine Blood Negative (Negative) Urine Nitrite Negative (Negative) Urine Bilirubin Negative (Negative) Urine Urobilinogen <2.0 (<2.0) mg/dL Ur Leukocyte Esterase Negative (Negative) Urine RBC 1 (0-5) /hpf Urine WBC 2 (0-5) /hpf Ur Squamous Epith Cells 1 (0-4) /hpf Urine Bacteria Many H (None) /hpf Blood Type Blood Type Recheck Bld Type Recheck Status Disposition Clinical Impression: Abdominal pain in Disposition: ADMITTED IP TO THIS HOSP Condition: Fair Referrals: Larisa Titus MD [Primary Care Provider] - 1-2 days Time of Disposition: 08:36
[2022-06-22 07:24] LABS: ALT 61 U/L (4-34); AST 37 U/L (14-36); African American GFR (CKD) >90 (>60 ml/min/1.73 sqM); Albumin 4.6 g/dL (3.5-5.0); Alkaline Phosphatase 67 U/L (38-126); Anion Gap 12 mmol/L; Blood Urea Nitrogen 10 mg/dL (7-17); Carbon Dioxide 20 mmol/L (22-30); Chloride 107 mmol/L (98-107); Glucose 122 mg/dL (74-99); Non-African American GFR(CKD) >90 (>60 ml/min/1.73 sqM); Potassium 3.9 mmol/L (3.5-5.1); Sodium 139 mmol/L (137-145); Total Bilirubin 0.7 mg/dL (0.2-1.3); Total Protein 7.8 g/dL (6.3-8.2)
[2022-06-22 07:40] LABS: HCG,Quantitative Serum 961.4 mIU/mL
[2022-06-22] MEDS ORDERED: ONDANSETRON 4 MG/2 ML VIAL IVP STA (07:40)
[2022-06-22] MEDS ORDERED: MORPHINE SULFATE 2 MG/ML SYRINGE IVP STA (07:40)
[2022-06-22 07:41] LABS: Appearance,Urine Cloudy (Clear); Bacteria,Urine Many /hpf; Bilirubin,Urine Negative (Negative); Blood,Urine Negative (Negative); Color,Urine Colorless; Glucose,Urine (UA) Negative (Negative); Ketones,Urine Negative (Negative); Leukocyte Esterase,Urine Negative (Negative); Nitrite,Urine Negative (Negative); Protein,Urine Negative (Negative); RBC,Urine 1 /hpf (0-5); Specific Gravity,Urine 1.001 (1.001-1.035); Squamous Epithelial Cell,Urine 1 /hpf (0-4); Urobilinogen,Urine <2.0 mg/dL (<2.0); WBC,Urine 2 /hpf (0-5)
--- NOTE | 2022-06-22 07:51 | US ---
EXAMINATION TYPE: Transabdominal DATE OF EXAM: 06/22/2022 7:44 AM COMPARISON: CLINICAL INDICATION: Female, 27 years old with history of Severe left-sided pain; Left side pain. No previous ultrasound with this . No hx ectopic. No HCG available at time of ultrasound. Pos itive beta hCG test. Portable ultrasound EXAM PERFORMED: Transvaginal (TV) and Transabdominal (TA) EXAM MEASUREMENTS: GESTATIONAL AGE / DATING Physician Established: Not yet established Dates by LMP: ( 6 weeks/0 days) EDC: 05/11/2022 Dates by First Scan: No previous this is first scan Dates by Current Scan for: No IUP seen at this time MATERNAL ANATOMY Uterus: 6.8 x 4.4 x 3.8 cm Right Ovary: 2.9 x 2.8 x 1.7 cm Left Ovary: 4.3 x 2.5 x 2.2 cm Post CDS / Adnexa: free fluid Presence of corpus luteal cyst: Left ovary complex lesion = 1.6 x 2.0 x 1.6 cm GESTATION / SURVEY IUP: No IUP seen at this time Date of LMP: 05/11/2022, [id number] Beta HcG (if available): 961.4 Endometrium = 1.1 cm with hypoechoic 0.9 x 1.0 x 0.2 cm. Anechoic area seen adjacent to left ovary = 0.8 x 0.8 x 0.9 of unknown origin that could possibly elongate into a fluid collection transversely. Anteverted uterus. Endometrial stripe is thickened to 11 mm. There is an elongated tiny anechoic area measuring 9 x 2 x 10 mm possible early gestational sac but is abnormal in shape true gestational sac . No yolk sac or pole. Small to moderate amount of free fluid in the pelvis Both ovaries are seen. Left ovary has peripheral 2.0 cm hypoechoic lesion suspicious for corpus lutea l cyst. No extraovarian adnexal masses. Focal fluid adjacent to left ovary noted. IMPRESSION: Findings could reflect product of spontaneous versus too early to visualize intr auterine . Ectopic is not entirely excluded. Serial beta hCG and possibly ultrasou nd follow-up is advised.
[2022-06-22] MEDS ORDERED: MORPHINE SULFATE 4 MG/ML SYRINGE IVP STA (08:06)
[2022-06-22] MEDS ORDERED: ACETAMINOPHEN TAB 325 MG TAB PO PRN (08:38)
[2022-06-22] MEDS ORDERED: ACETAMINOPHEN IV (For NPO) 1,000 MG in EMPTY BAG 1 BAG IVPB STA (09:09)
--- NOTE | 2022-06-22 12:40 | P.HPOB ---
History of Present Illness H&P Date: 06/22/22 Chief Complaint: Early , left lower quadrant pain This is a 27-year-old at approximate 5 weeks of gestation presented to the emergency department this a.m. with complaints of left lower quadrant pain. 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 Patient had slight spotting yesterday with wiping. Patient denies recent intercourse, last intercourse about 1 week ago. Patient denies constipation symptoms and states she had a bowel movement this morning. Patient denies urinary complaints. Patient does have a history of renal lithiasis with a negative UA in the ED. Hemoglobin was noted to be stable in the emergency department. Pelvic ultrasound was reviewed in addition. Review of Systems Constitutional: Denies chills, Denies fatigue, Denies fever Ears, nose, mouth and throat: Denies headache Cardiovascular: Denies leg edema Respiratory: Denies dyspnea Gastrointestinal: Reports abdominal pain, Reports nausea, Denies constipation, Denies diarrhea, Denies vomiting Genitourinary: Reports Past Medical History Past Medical History: Asthma, Mitral Valve Prolapse (MVP), Thyroid Disorder Additional Past Medical History / Comment(s): colitis History of Any Multi-Drug Resistant Organisms: None Reported Past Surgical History: Appendectomy, Section Additional Past Surgical History / Comment(s): throidectomy 09/2017 Past Psychological History: Anxiety, Depression, No Psychological Hx Reported Additional Psychological History / Comment(s): not taking any meds at this time was on celexa Smoking Status: Never smoker Past Alcohol Use History: Occasional, Rare Past Drug Use History: None Reported - Past Family History Mother Family Medical History: Asthma Father Family Medical History: Coronary Artery Disease (CAD), CVA/TIA Brother(s) Family Medical History: Asthma Medications and Allergies Home Medications Medication Instructions Recorded Confirmed Type Albuterol Nebulized [Ventolin 2.5 mg INHALATION RT-QID PRN 05/18/22 06/22/22 History Nebulized] Dicyclomine [Bentyl] 10 mg PO TID PRN 05/18/22 06/22/22 History Levothyroxine Sodium [Synthroid] 137 mcg PO DAILY 05/18/22 06/22/22 History Albuterol Sulfate [Albuterol 1 - 2 puff PO RT-Q4H PRN 06/22/22 06/22/22 History Sulfate Hfa] Allergies Allergy/AdvReac Type Severity Reaction Status Date / Time amoxicillin Allergy Rash/Hives Verified 06/22/22 08:57 nickel Allergy Rash/Hives Verified 06/22/22 08:57 sulfamethoxazole Allergy Rash/Hives Verified 06/22/22 08:57 [From ] trimethoprim [From ] Allergy Rash/Hives Verified 06/22/22 08:57 corn AdvReac Diarrhea Verified 06/22/22 08:57 Exam Osteopathic Statement: *. No significant issues noted on an osteopathic st ructural exam other than those noted in the History and Physical/Consult. Vital Signs Temp Pulse Pulse Resp BP BP Pulse Ox 06/22/22 11:09 98.3 F 110 H 18 141/87 06/22/22 06:32 98.2 F 120 H 20 134/80 98 Intake and Output 06/21/22 06/22/22 06/22/22 22:59 06:59 14:59 Other: Weight 75.75 kg 75.75 kg Targeted physical exam is performed and state in general this a well-nourished well-developed female in no acute distress, breathing is noted to be nonlabored, she is resting comfortably in the bed. Heart has a regular rate and rhythm, abdomen is soft and nontender no guarding is appreciated. On bimanual exam slight enlargement of the uterus is appreciated, no adnexal masses are palpated no tenderness on exam Results Result Diagrams: 06/22/22 06:58 06/22/22 06:58 Abnormal Lab Results - Last 24 Hours (Table) 06/22/22 06/22/22 Range/Units 06:58 06:58 Carbon Dioxide 20 L (22-30) mmol/L Glucose 122 H (74-99) mg/dL AST 37 H (14-36) U/L ALT 61 H (4-34) U/L Urine Appearance Cloudy H (Clear) Urine Bacteria Many H (None) /hpf Assessment and Plan (1) Corpus luteum cyst of left ovary Current Visit: Yes Status: Acute Code(s): N83.12 - CORPUS LUTEUM CYST OF LEFT OVARY SNOMED Code(s): 20952928587057897 (2) Abdominal pain in Current Visit: Yes Status: Acute Code(s): O26.899 - OTH RELATED CONDITIONS, UNSPECIFIED TRIMESTER; R10.9 - UNSPECIFIED ABDOMINAL PAIN SNOMED Code(s): 398494960 Plan: 27-year-old 0-1 at approximate 5 weeks of gestation presented with complaints of increasing left lower quadrant pain. Patient is counseled on ultrasound and lab values. Her quantitative beta hCG is 961 and as expected no IUP is visualized on transvaginal ultrasound. Questionable early gestational sac with decidual reaction is appreciated, left ovarian cyst, corpus luteum is appreciated, free fluid is appreciated in the pelvis which appears simple in appearance. Exam is discussed with patient in general, given the benign nature of that we'll continue to observe closely. We will order a progesterone level, repeat quantitative beta hCG in the a.m. All questions are answered. Patient states she is comfortable with plan of care.
[2022-06-22] MEDS: LACTATED RINGERS 1,000 ML IV SCH ×2 (13:11→17:39)
[2022-06-22] MEDS ORDERED: ACETAMINOPHEN IV (For NPO) 1,000 MG in EMPTY BAG 1 BAG IVPB ONE ×2 (15:00→21:00)
[2022-06-23] MEDS: LACTATED RINGERS 1,000 ML IV SCH (01:27)
[2022-06-23] MEDS ORDERED: LEVOTHYROXINE 137 MCG TAB PO SCH (06:30)
[2022-06-23 07:51] VITALS: BP 121/78; PULSE 82; RESP 16; TEMP 98.6
--- NOTE | 2022-06-23 08:49 | P.DS ---
Providers Date of admission: 06/22/22 09:24 Expected date of discharge: 06/23/22 Attending physician: Nohemi Morris Primary care physician: Larisa Titus - Discharge Diagnosis(es) (1) Corpus luteum cyst of left ovary Current Visit: Yes Status: Acute (2) Abdominal pain in Current Visit: Yes Status: Acute (3) Current Visit: Yes Status: Acute Hospital Course: 27yo at approximately 5 weeks of that presented to the ED with complaints of abdominal pain, known early . she states she in addition had some spotting. she wasnt trying for , US done revealing what appears to a early gestational sac. left corpus luteum is noted. she was admitted for abservation given her LLQ pain. she did well overnight and receive one dose of ofirimev. she is tolerating a regular diet without nausea or vomiting. she states she is feeling well this am. she denies pain. her quant did rise from 961-1337 in 24 hours. progesterone is low at 6.7. lab slip is given to patient for repeat quant tomorrow. she is to follow up with me next week for continued care. she is given ectopic precautions. All questions are answered and she states she is comfortable with the current plan. Patient Condition at Discharge: Good Plan - Discharge Summary New Discharge Prescriptions: No Action Albuterol Nebulized [Ventolin Nebulized] 2.5 mg INHALATION RT-QID PRN PRN Reason: Shortness Of Breath Albuterol Sulfate [Albuterol Sulfate Hfa] 1 - 2 puff PO RT-Q4H PRN PRN Reason: Shortness Of Breath Levothyroxine Sodium [Synthroid] 137 mcg PO DAILY Dicyclomine [Bentyl] 10 mg PO TID PRN PRN Reason: Gi Upset Discharge Medication List Albuterol Nebulized [Ventolin Nebulized] 2.5 mg INHALATION RT-QID PRN 05/18/22 [History] Dicyclomine [Bentyl] 10 mg PO TID PRN 05/18/22 [History] Levothyroxine Sodium [Synthroid] 137 mcg PO DAILY 05/18/22 [History] Albuterol Sulfate [Albuterol Sulfate Hfa] 1 - 2 puff PO RT-Q4H PRN 06/22/22 [History] Follow up Appointment(s)/Referral(s): Nohemi Morris DO [Doctor of Osteopathic Medicine] - 1 Week Patient Instructions/Handouts: Ectopic (DC), Ectopic (IP) Activity/Diet/Wound Care/Special Instructions: no intercourse, ectopic precautions reviewed, follow up in 1 week with myself. Discharge Disposition: HOME SELF-CARE
== END 2022-06-23 09:05 | disposition home or self-care (01) ==
LOC: EC 06:31 → 4FBP 09:24
PROVIDERS: ADMIT Obstetrics & Gynecology Obstetrics; ATTEND Obstetrics & Gynecology Obstetrics
DX: O34.81 Maternal care for other abnormalities of pelvic organs, first trimester (principal); N83.12 Corpus luteum cyst of left ovary; O99.511 Diseases of the respiratory system complicating pregnancy, first trimester; J45.909 Unspecified asthma, uncomplicated; O99.341 Other mental disorders complicating pregnancy, first trimester; F41.9 Anxiety disorder, unspecified; F32.A Depression, unspecified; O99.281 Endocrine, nutritional and metabolic diseases complicating pregnancy, first trimester; E07.9 Disorder of thyroid, unspecified; Z3A.01 Less than 8 weeks gestation of pregnancy; Z79.890 Hormone replacement therapy; Z88.0 Allergy status to penicillin; Z88.2 Allergy status to sulfonamides; Z88.1 Allergy status to other antibiotic agents
CPT/HCPCS: 36415; 76801; 76817; 80053; 81001; 84144; 84702; 85025; 86900; 86901; 96375; 96376; 99285

== ENCOUNTER → 2022-06-24 | Outpatient (CLI) | payer MEDICAID, OTHER | END | disposition home or self-care (01) | LOC: LABWHC1 15:03 | PROVIDERS: ATTEND Obstetrics & Gynecology Obstetrics | DX: Z33.1 Pregnant state, incidental (principal) | CPT/HCPCS: 36415; 84702 ==

== ENCOUNTER → 2022-08-16 | Outpatient (CLI) | payer MEDICAID ==
[2022-08-16 19:12] LABS: HCT 43.7 % (37.2-46.3); HGB 14.8 d/dL (12.0-15.0); MCH 32.1 pg (27.0-32.0); MCHC 33.9 d/dL (32.0-37.0); MCV 94.8 FL (80.0-97.0); Mean Platelet Volume 9.7 FL (9.5-12.2); NRBC Per 100 WBC 0 X 10*3/uL (0.00-0.01); Platelet Count 294 X 10*3/uL (140-440); RBC 4.61 X 10*6/uL (4.10-5.20); RDW 12.1 % (11.5-14.5); WBC 6.93 X 10*3/uL (4.50-10.00)
[2022-08-16 22:37] LABS: ALT 72 U/L (8-44); AST 41 U/L (13-35); Albumin 4.8 d/dL (3.8-4.9); Albumin/Globulin Ratio 1.78 Ratio (1.60-3.17); Alkaline Phosphatase 68 U/L (41-126); BUN/Creat Ratio 17.71 Ratio (12.00-20.00); Blood Urea Nitrogen 12.4 mg/dL (9.0-27.0); Calcium 9.8 mg/dL (8.7-10.3); Carbon Dioxide 21.9 mmol/L (21.6-31.8); Chloride 106 mmol/L (96-109); Chol/HDL Ratio 4.55 Ratio; Globulin 2.7 d/dL (1.6-3.3); Glucose 92 mg/dL (70-110); HCG,Quantitative Serum <1.0 mIU/mL (0.0-6.0); LDL Cholesterol,Calculated 102.6 mg/dL (0.0-131.0); Potassium 4.6 mmol/L (3.5-5.5); Sodium 138 mmol/L (135-145); T4, Free (Free Thyroxine) 1.84 ng/dL (0.80-1.80); Total Bilirubin 0.4 mg/dL (0.3-1.2); Total Protein 7.5 d/dL (6.2-8.2)
== END | disposition home or self-care (01) ==
LOC: LABWHC1 10:59
PROVIDERS: ATTEND Obstetrics & Gynecology Obstetrics
DX: E07.9 Disorder of thyroid, unspecified (principal); E78.2 Mixed hyperlipidemia; F41.9 Anxiety disorder, unspecified; N92.5 Other specified irregular menstruation; R00.2 Palpitations
CPT/HCPCS: 36415; 80053; 80061; 84439; 84443; 84481; 84702; 85027

== ENCOUNTER → 2022-10-31 | Outpatient (CLI) | payer MEDICAID, OTHER | END | disposition home or self-care (01) | LOC: LABMAIN 09:36 | PROVIDERS: ATTEND Emergency Medicine | DX: N94.6 Dysmenorrhea, unspecified (principal) | CPT/HCPCS: 84702 ==

== ENCOUNTER 2023-01-08 17:46 | Emergency (ER) | payer MEDICAID, OTHER ==
[2023-01-08] MEDS ORDERED: SODIUM CHLORIDE 0.9% 500 ML 500 ML IV STA (18:04)
[2023-01-08] MEDS ORDERED: SODIUM CHLORIDE 0.9% 1,000 ML IV STA (18:04)
--- NOTE | 2023-01-08 18:06 | ED ---
SOB HPI - General Chief Complaint: Shortness of Breath Stated Complaint: SOB Time Seen by Provider: 01/08/23 17:53 Source: patient, RN notes reviewed Mode of arrival: ambulatory Limitations: no limitations - History of Present Illness Initial Comments: 26-year-old female history of asthma who states she started developing a cough and shortness of breath over last couple days she goes she was tachycardic at home with her heart rate in the 140s. Of note she has have a child that he is suffering with influenza at this time. She was short of breath and did not want to use her inhaler due to the tachycardia. She also has some sharp chest pain. Posterior chest stallworth she has of history of pleurisy. MD Complaint: shortness of breath, cough - Related Data Home Medications Medication Instructions Recorded Confirmed Albuterol Nebulized [Ventolin 2.5 mg INHALATION RT-QID PRN 05/18/22 06/22/22 Nebulized] Dicyclomine [Bentyl] 10 mg PO TID PRN 05/18/22 06/22/22 Levothyroxine Sodium [Synthroid] 137 mcg PO DAILY 05/18/22 06/22/22 Albuterol Sulfate [Albuterol 1 - 2 puff PO RT-Q4H PRN 06/22/22 06/22/22 Sulfate Hfa] Previous Rx's Medication Instructions Recorded clindamycin HCL 300 mg PO QID #40 cap 11/28/22 HYDROcodone/APAP 7.5-325MG [[place] 1 tab PO Q6HR PRN 3 Days #12 tab 12/13/22 7.5-325] Ibuprofen [Motrin] 600 mg PO Q8HR PRN #20 tab 12/13/22 Ondansetron Odt [Zofran Odt] 4 mg PO Q8HR PRN #10 tab 12/13/22 Oseltamivir [Tamiflu] 75 mg PO Q12HR #10 cap 01/08/23 Allergies Allergy/AdvReac Type Severity Reaction Status Date / Time amoxicillin Allergy Rash/Hives Verified 01/08/23 17:50 nickel Allergy Rash/Hives Verified 01/08/23 17:50 sulfamethoxazole Allergy Rash/Hives Verified 01/08/23 17:50 [From ] trimethoprim [From ] Allergy Rash/Hives Verified 01/08/23 17:50 corn AdvReac Diarrhea Verified 01/08/23 17:50 Review of Systems ROS Statement: Those systems with pertinent positive or pertinent negative responses have been documented in the HPI. ROS Other: All systems not noted in ROS Statement are negative. Past Medical History Past Medical History: Asthma, Mitral Valve Prolapse (MVP), Thyroid Disorder Additional Past Medical History / Comment(s): colitis History of Any Multi-Drug Resistant Organisms: None Reported Past Surgical History: Appendectomy, Section Additional Past Surgical History / Comment(s): throidectomy 09/2017 Past Psychological History: Anxiety, Depression, No Psychological Hx Reported Smoking Status: Never smoker Past Alcohol Use History: Occasional, Rare Past Drug Use History: None Reported - Past Family History Mother Family Medical History: Asthma Father Family Medical History: Coronary Artery Disease (CAD), CVA/TIA Brother(s) Family Medical History: Asthma General Exam - General Exam Comments Initial Comments: This is a well-developed well-nourished awake alert oriented 4 female Limitations: no limitations General appearance: alert, in no apparent distress Head exam: Present: atraumatic, normocephalic, normal inspection Eye exam: Present: normal appearance, PERRL, EOMI. Absent: scleral icterus, conjunctival injection, periorbital swelling ENT exam: Present: mucous membranes dry Neck exam: Present: normal inspection, full ROM, other (No stridor JVD or bru its). Absent: tenderness, meningismus, lymphadenopathy Respiratory exam: Present: normal lung sounds bilaterally. Absent: respiratory distress, wheezes, rales, rhonchi, stridor Cardiovascular Exam: Present: normal rhythm, tachycardia, normal heart sounds. Absent: systolic murmur, diastolic murmur, rubs, gallop, clicks GI/Abdominal exam: Present: soft, normal bowel sounds. Absent: distended, tenderness, guarding, rebound, rigid Extremities exam: Present: normal inspection, full ROM, normal capillary refill. Absent: tenderness, pedal edema, joint swelling, calf tenderness Back exam: Present: normal inspection Neurological exam: Present: alert, oriented X3, CN II-XII intact Psychiatric exam: Present: normal affect, normal mood Skin exam: Present: warm, dry, intact, normal color. Absent: rash Course Vital Signs 01/08/23 01/08/23 01/08/23 17:48 18:16 19:15 Temperature 99.4 F Pulse Rate 129 H 130 H 123 H Respiratory 18 18 20 Rate Blood Pressure 135/88 129/89 121/92 O2 Sat by Pulse 98 96 99 Oximetry 01/08/23 19:50 Temperature 98.9 F Pulse Rate Respiratory Rate Blood Pressure O2 Sat by Pulse Oximetry Medical Decision Making - Medical Decision Making Patient is feeling improved after IV fluids we did discuss the findings she is influenza positive is a search child. We discharged home she does have an inhaler at home and does have pain medications we did discuss this and the use of thereof.Was pt. sent in by a medical professional or institution (, PA, SUPERVISOR PIPE MANUFACTURE, urgent care, hospital, or alf...) When possible be specific @ -No Did you speak to anyone other than the patient for history (EMS, parent, family, police, friend...)? What history was obtained from this source @ -No Did you review nursing and triage notes (agree or disagree)? Why? @ -I reviewed and agree with nursing and triage notes Were old charts reviewed (outside hosp., previous admission, EMS record, old EKG, old radiological studies, urgent care reports/EKG's, alf records)? Report findings @ -From 12/13/22 old charts were reviewed Differential Diagnosis (chest pain, altered mental status, abdominal pain women, abdominal pain men, vaginal bleeding, weakness, fever, dyspnea, syncope, headache, dizziness, GI bleed, back pain, seizure, CVA, palpatations, mental health, musculoskeletal)? @ -Asthma exacerbation, viral syndrome, dehydration EKG interpreted by me (3pts min.). @ -As above EKG interpreted by me sinus tachycardia rate 127. Interval 137 QRS duration 82 daily since QTC 287/362 borderline left exodeviation criteria and both prescription. Present for LVH this was compared with EKG dated 12/13/22 showing similar configuration X-rays interpreted by me (1pt min.). @ -Interpreted by me no acute process seen] CT interpreted by me (1pt min.). @ -Interpreted by me no evidence of PE U/S interpreted by me (1pt. min.). @ -None done What testing was considered but not performed or refused? (CT, X-rays, U/S, labs)? Why? @ -None What meds were considered but not given or refused? Why? @ -None Did you discuss the management of the patient with other professionals (professionals i.e. , PA, SUPERVISOR PIPE MANUFACTURE, lab, RT, psych nurse, social service director, head start coordinator, teacher, staff air tactical officer, supervisor case loading)? Give summary @ -No Was smoking cessation discussed for >3mins.? @ -No Was critical care preformed (if so, how long)? @ -No Were there social determinants of health that impacted care today? How? (Homelessness, low income, unemployed, alcoholism, drug addiction, transportation, low edu. Level, literacy, decrease access to med. care, long term, rehab)? @ -No Was there de-escalation of care discussed even if they declined (Discuss DNR or withdrawal of care, Hospice)? DNR status @ -No What co-morbidities impacted this encounter? (DM, HTN, Smoking, COPD, CAD, Cancer, CVA, ARF, Chemo, Hep., AIDS, mental health diagnosis, sleep apnea, morbid obesity)? @ -Asthma Was patient admitted / discharged? Hospital course, mention meds given and route, prescriptions, significant lab abnormalities, going to OR and other pertinent info. @ -hospital course patient was discharged home to be on appropriate medication we did discuss other medication and hydration. The medications include vitamin C vitamin D3 and sank as well as Tamiflu Undiagnosed new problem with uncertain prognosis? @ -No Drug Therapy requiring intensive monitoring for toxicity (Heparin, Nitro, Insulin, Cardizem)? @ -No Were any procedures done? @ -No Diagnosis/symptom? @ -1 sec, viral syndrome, dehydration, dyspnea Acute, or Chronic, or Acute on Chronic? @ -Acute Uncomplicated (without systemic symptoms) or Complicated (systemic symptoms)? @ -default Side effects of treatment? @ -No Exacerbation, Progression, or Severe Exacerbation? @ -No Poses a threat to life or bodily function? How? (Chest pain, [place], [place], pneumonia, PE, COPD, DKA, ARF, appy, cholecystitis, CVA, Diverticulitis, Homicidal, Suicidal, threat to staff... and all critical care pts) @ -No - Lab Data Result diagrams: 01/08/23 18:06 01/08/23 18:06 Lab Results 01/08/23 01/08/23 01/08/23 Range/Units 18:06 18:06 18:06 WBC 3.5 L (3.8-10.6) k/uL RBC 4.67 (3.80-5.40) m/uL Hgb 15.4 (11.4-16.0) gm/dL Hct 43.7 (34.0-46.0) % MCV 93.5 (80.0-100.0) fL MCH 33.1 (25.0-35.0) pg MCHC 35.4 (31.0-37.0) g/dL RDW 12.2 (11.5-15.5) % Plt Count 211 (150-450) k/uL MPV 7.1 Neutrophils % 76 % Lymphocytes % 17 % Monocytes % 5 % Eosinophils % 1 % Basophils % 0 % Neutrophils # 2.6 (1.3-7.7) k/uL Lymphocytes # 0.6 L (1.0-4.8) k/uL Monocytes # 0.2 (0-1.0) k/uL Eosinophils # 0.0 (0-0.7) k/uL Basophils # 0.0 (0-0.2) k/uL PT 10.0 (10.0-12.5) sec INR 0.9 (<1.2) APTT 22.4 (22.0-30.0) sec D-Dimer 0.93 H (<0.60) mg/L FEU Sodium 138 (137-145) mmol/L Potassium 3.8 (3.5-5.1) mmol/L Chloride 102 (98-107) mmol/L Carbon Dioxide 22 (22-30) mmol/L Anion Gap 14 mmol/L BUN 12 (7-17) mg/dL Creatinine 0.66 (0.52-1.04) mg/dL Est GFR (CKD-EPI)AfAm >90 (>60 ml/min/1.73 sqM) Est GFR (CKD-EPI)NonAf >90 (>60 ml/min/1.73 sqM) Glucose 216 H (74-99) mg/dL Plasma Lactic Acid Beau (0.7-2.0) mmol/L Calcium 9.7 (8.4-10.2) mg/dL Magnesium 2.0 (1.6-2.3) mg/dL Total Bilirubin 0.8 (0.2-1.3) mg/dL AST 71 H (14-36) U/L ALT 78 H (4-34) U/L Alkaline Phosphatase 61 (38-126) U/L Troponin I (0.000-0.034) ng/mL NT-Pro-B Natriuret Pep <20 pg/mL Total Protein 8.6 H (6.3-8.2) g/dL Albumin 4.9 (3.5-5.0) g/dL Influenza Type A (PCR) (Not Detectd) Influenza Type B (PCR) (Not Detectd) RSV (PCR) (Not Detectd) SARS-CoV-2 (PCR) (Not Detectd) 01/08/23 01/08/23 01/08/23 Range/Units 18:06 18:06 18:06 WBC (3.8-10.6) k/uL RBC (3.80-5.40) m/uL Hgb (11.4-16.0) gm/dL Hct (34.0-46.0) % MCV (80.0-100.0) fL MCH (25.0-35.0) pg MCHC (31.0-37.0) g/dL RDW (11.5-15.5) % Plt Count (150-450) k/uL MPV Neutrophils % % Lymphocytes % % Monocytes % % Eosinophils % % Basophils % % Neutrophils # (1.3-7.7) k/uL Lymphocytes # (1.0-4.8) k/uL Monocytes # (0-1.0) k/uL Eosinophils # (0-0.7) k/uL Basophils # (0-0.2) k/uL PT (10.0-12.5) sec INR (<1.2) APTT (22.0-30.0) sec D-Dimer (<0.60) mg/L FEU Sodium (137-145) mmol/L Potassium (3.5-5.1) mmol/L Chloride (98-107) mmol/L Carbon Dioxide (22-30) mmol/L Anion Gap mmol/L BUN (7-17) mg/dL Creatinine (0.52-1.04) mg/dL Est GFR (CKD-EPI)AfAm (>60 ml/min/1.73 sqM) Est GFR (CKD-EPI)NonAf (>60 ml/min/1.73 sqM) Glucose (74-99) mg/dL Plasma Lactic Acid Beau 2.4 H* (0.7-2.0) mmol/L Calcium (8.4-10.2) mg/dL Magnesium (1.6-2.3) mg/dL Total Bilirubin (0.2-1.3) mg/dL AST (14-36) U/L ALT (4-34) U/L Alkaline Phosphatase (38-126) U/L Troponin I <0.012 (0.000-0.034) ng/mL NT-Pro-B Natriuret Pep pg/mL Total Protein (6.3-8.2) g/dL Albumin (3.5-5.0) g/dL Influenza Type A (PCR) Detected A (Not Detectd) Influenza Type B (PCR) Not Detected (Not Detectd) RSV (PCR) Not Detected (Not Detectd) SARS-CoV-2 (PCR) Not Detected (Not Detectd) - EKG Data -: EKG Interpreted by Me EKG Comments: EKG interpreted by me sinus tachycardia of 127 MI interval 137 QRS duration 82 QT since QTC 287/362 borderline left exodeviation old prescription. Does exist for LVH. This is compared with one dated showing similar configuration as - Radiology Data Interpreted by me: Chest x-ray interpreted by me showing no evidence of acute processes computed tomography scan also interpreted by me no evidence of pulmonary embolus Disposition Clinical Impression: Influenza A, Viral syndrome, Sinus tachycardia, Elevated d-dimer, Dehydration, History of asthma Disposition: HOME SELF-CARE Condition: Good Instructions (If sedation given, give patient instructions): Influenza (ED), Asthma (ED), Tachycardia (ED) Prescriptions: Oseltamivir [Tamiflu] 75 mg PO Q12HR #10 cap Is patient prescribed a controlled substance at d/c from ED?: No Referrals: Tiffanie Graham MD [Primary Care Provider] - 1-2 days Decision Date: 01/08/23 Decision Time: 20:17
[2023-01-08 18:31] LABS: Basophils % (A) 0 %; Eosinophils % (A) 1 %; HCT 43.7 % (34.0-46.0); HGB 15.4 gm/dL (11.4-16.0); Lymphocytes # (A) 0.6 k/uL (1.0-4.8); Lymphocytes % (A) 17 %; MCH 33.1 pg (25.0-35.0); MCHC 35.4 g/dL (31.0-37.0); MCV 93.5 fL (80.0-100.0); Mean Platelet Volume 7.1; Monocytes # (A) 0.2 k/uL (0-1.0); Monocytes % (A) 5 %; Neutrophils # (A) 2.6 k/uL (1.3-7.7); Neutrophils % (A) 76 %; Platelet Count 211 k/uL (150-450); RBC 4.67 m/uL (3.80-5.40); RDW 12.2 % (11.5-15.5); WBC 3.5 k/uL (3.8-10.6)
[2023-01-08 18:38] LABS: ALT 78 U/L (4-34); AST 71 U/L (14-36); African American GFR (CKD) >90 (>60 ml/min/1.73 sqM); Albumin 4.9 g/dL (3.5-5.0); Alkaline Phosphatase 61 U/L (38-126); Anion Gap 14 mmol/L; Blood Urea Nitrogen 12 mg/dL (7-17); Calcium 9.7 mg/dL (8.4-10.2); Carbon Dioxide 22 mmol/L (22-30); Chloride 102 mmol/L (98-107); Glucose 216 mg/dL (74-99); Non-African American GFR(CKD) >90 (>60 ml/min/1.73 sqM); Sodium 138 mmol/L (137-145); Total Bilirubin 0.8 mg/dL (0.2-1.3); Total Protein 8.6 g/dL (6.3-8.2)
[2023-01-08 18:42] LABS: Potassium 3.8 mmol/L (3.5-5.1)
[2023-01-08 18:45] LABS: INR 0.9 (<1.2); Partial Thromboplastin Time 22.4 sec (22.0-30.0)
[2023-01-08 18:47] LABS: NT-Pro-B-Type Natriuretic Pept <20 pg/mL
--- NOTE | 2023-01-08 18:55 | XR ---
EXAMINATION TYPE: XR chest 2V DATE OF EXAM: 01/08/2023 6:25 PM CLINICAL INDICATION:Female, 27 years old with history of difficulty breathing; [facility] COMPARISON: Chest radiographs from 12/13/2022 TECHNIQUE: XR chest 2V Frontal and lateral views of the chest. FINDINGS: Lungs/Pleura: There is no evidence of pleural effusion, focal consolidation, or pneumothorax. Pulmonary vascularity: Unremarkable. Heart/mediastinum: Cardiomediastinal silhouette is unremarkable. Musculoskeletal: No acute osseous pathology. IMPRESSION: No acute cardiopulmonary disease/process.
--- NOTE | 2023-01-08 19:58 | CT ---
EXAMINATION TYPE: CT angio chest CT DLP: 259.7 mGycm, Automated exposure control for dose reduction was used. DATE OF EXAM: 01/08/2023 7:46 PM COMPARISON: 12/13/2022 CLINICAL INDICATION:Female, 27 years old with history of PE suspected; SOB, elevated d-dimer, hx MVP, asthma TECHNIQUE/CONTRAST: CTA scan of the thorax is performed with IV Contrast, patient injected with 100 mL of Isovue 370, MIP images are created and reviewed these are created on a separate workstation.. FINDINGS: Pulmonary Artery: There is no evidence for a filling defect within the pulmonary vasculature to sugge st acute pulmonary embolism. The pulmonary artery is of normal size. Lungs/Pleura: No evidence of focal consolidation, pleural effusion or pneumothorax. Airway: Large airways are patent. Heart: Heart is within normal limits for size. Vasculature: No evidence of aortic aneurysm. Mediastinum: No gross evidence of adenopathy. Musculoskeletal: No acute osseous abnormalities Soft Tissues: Unremarkable. Lower neck: No significant findings. Upper Abdomen: Diffuse low-attenuation to the liver parenchyma.. IMPRESSION: No evidence of pulmonary embolism.
[2023-01-08] MEDS ORDERED: OSELTAMIVIR 75 MG CAP PO STA (20:17)
[2023-01-08 20:32] VITALS: BP 134/98; PULSE 124; RESP 18; TEMP 98.7
== END 2023-01-08 20:30 | disposition home or self-care (01) ==
LOC: EC 17:46
DX: J10.1 Influenza due to other identified influenza virus with other respiratory manifestations (principal); R00.0 Tachycardia, unspecified; R79.89 Other specified abnormal findings of blood chemistry; E86.0 Dehydration; J45.909 Unspecified asthma, uncomplicated; E07.9 Disorder of thyroid, unspecified; F41.9 Anxiety disorder, unspecified; F32.A Depression, unspecified; Z20.822 Contact with and (suspected) exposure to COVID-19; Z79.890 Hormone replacement therapy; Z79.899 Other long term (current) drug therapy; Z88.0 Allergy status to penicillin; Z88.1 Allergy status to other antibiotic agents; Z88.2 Allergy status to sulfonamides; Z91.09 Other allergy status, other than to drugs and biological substances; Z91.018 Allergy to other foods
CPT/HCPCS: 36415; 71046; 71275; 80053; 83605; 83735; 83880; 84145; 84484; 85025; 85379; 85610; 85730; 87040; 87636; 93005; 96360; 96361; 99285

== ENCOUNTER 2023-01-28 16:26 | Emergency (ER) | payer MEDICAID, OTHER ==
[2023-01-28 16:36] VITALS: BP 162/99; PULSE 142; RESP 18; TEMP 98.4
[2023-01-28] MEDS ORDERED: KETOROLAC 15 MG/ML 1 ML VIAL IM STA (16:46)
[2023-01-28] MEDS ORDERED: MORPHINE SULFATE 2 MG/ML SYRINGE IVP STA (17:01)
[2023-01-28] MEDS ORDERED: ONDANSETRON 4 MG/2 ML VIAL IVP STA (17:14)
--- NOTE | 2023-01-28 17:25 | XR ---
EXAMINATION TYPE: XR hand complete LT DATE OF EXAM: 01/28/2023 COMPARISON: None HISTORY: Slammed hand in car door TECHNIQUE: 3 view left hand FINDINGS: Ring is present during the exam No acute fracture or dislocation is evident. There is some soft tissue swelling over the proximal dig its. Joint spaces appear preserved. Follow up exams can be performed 7-10 days from acute trauma for continued pain. IMPRESSION: 1. Soft tissue swelling proximal digits. 2. No underlying osseous abnormality identified.
--- NOTE | 2023-01-28 17:50 | ED ---
Upper Extremity HPI - General Chief Complaint: Extremity Injury, Upper Stated Complaint: L Hand Injury Time Seen by Provider: 01/28/23 16:36 Source: EMS Mode of arrival: EMS Limitations: no limitations - History of Present Illness Initial Comments: 27-year-old female presenting with chief complaint of left hand injury. Patient shut her hand in the car door today. She is complaining of pain across the fingers 2 through 5 as well as knuckles. The thumb is unaffected. The wrist is unaffected. Admits to pain and swelling. She does have a small abrasion, no active bleeding. Tetanus is up-to-date. - Related Data Home Medications Medication Instructions Recorded Confirmed Albuterol Nebulized [Ventolin 2.5 mg INHALATION RT-QID PRN 05/18/22 06/22/22 Nebulized] Dicyclomine [Bentyl] 10 mg PO TID PRN 05/18/22 06/22/22 Levothyroxine Sodium [Synthroid] 137 mcg PO DAILY 05/18/22 06/22/22 Albuterol Sulfate [Albuterol 1 - 2 puff PO RT-Q4H PRN 06/22/22 06/22/22 Sulfate Hfa] Previous Rx's Medication Instructions Recorded clindamycin HCL 300 mg PO QID #40 cap 11/28/22 HYDROcodone/APAP 7.5-325MG [[place] 1 tab PO Q6HR PRN 3 Days #12 tab 12/13/22 7.5-325] Ibuprofen [Motrin] 600 mg PO Q8HR PRN #20 tab 12/13/22 Ondansetron Odt [Zofran Odt] 4 mg PO Q8HR PRN #10 tab 12/13/22 Oseltamivir [Tamiflu] 75 mg PO Q12HR #10 cap 01/08/23 Allergies Allergy/AdvReac Type Severity Reaction Status Date / Time amoxicillin Allergy Rash/Hives Verified 01/08/23 17:50 nickel Allergy Rash/Hives Verified 01/08/23 17:50 sulfamethoxazole Allergy Rash/Hives Verified 01/08/23 17:50 [From ] trimethoprim [From ] Allergy Rash/Hives Verified 01/08/23 17:50 corn AdvReac Diarrhea Verified 01/08/23 17:50 Review of Systems ROS Statement: Those systems with pertinent positive or pertinent negative responses have been documented in the HPI. ROS Other: All systems not noted in ROS Statement are negative. Past Medical History Past Medical History: Asthma, Mitral Valve Prolapse (MVP), Thyroid Disorder Additional Past Medical History / Comment(s): colitis History of Any Multi-Drug Resistant Organisms: None Reported Past Surgical History: Appendectomy, Section Additional Past Surgical History / Comment(s): throidectomy 09/2017 Past Psychological History: Anxiety, Depression, No Psychological Hx Reported Smoking Status: Never smoker Past Alcohol Use History: Occasional, Rare Past Drug Use History: None Reported - Past Family History Mother Family Medical History: Asthma Father Family Medical History: Coronary Artery Disease (CAD), CVA/TIA Brother(s) Family Medical History: Asthma General Exam Limitations: no limitations General appearance: alert, in no apparent distress Head exam: Present: atraumatic, normocephalic, normal inspection Eye exam: Present: normal appearance, EOMI Neck exam: Present: normal inspection, full ROM Respiratory exam: Absent: respiratory distress Left Hand Wrist exam: Present: full ROM, tenderness, swelling. Absent: deformity Neurological exam: Present: alert, oriented X3 Psychiatric exam: Present: normal affect, normal mood Skin exam: Present: abrasion (L 2nd digit) Course Vital Signs 01/28/23 16:31 Temperature 98.4 F Pulse Rate 142 H Respiratory 18 Rate Blood Pressure 162/99 O2 Sat by Pulse 98 Oximetry Medical Decision Making - Medical Decision Making Was pt. sent in by a medical professional or institution (, PA, OIL WELL FISHING TOOL TECHNICIAN, urgent care, hospital, or senior care...) When possible be specific @ -No Did you speak to anyone other than the patient for history (EMS, parent, family, police, friend...)? What history was obtained from this source @ -No Did you review nursing and triage notes (agree or disagree)? Why? @ -I reviewed and agree with nursing and triage notes Were old charts reviewed (outside hosp., previous admission, EMS record, old EKG, old radiological studies, urgent care reports/EKG's, senior care records)? Report findings @ -No old charts were reviewed Differential Diagnosis (chest pain, altered mental status, abdominal pain women, abdominal pain men, vaginal bleeding, weakness, fever, dyspnea, syncope, headache, dizziness, GI bleed, back pain, seizure, CVA, palpatations, mental health, musculoskeletal)? @ -Differential Musculoskeletal Muscular strain, contusion, ligament sprain, fracture, arthritis, septic arthritis, bursitis, cellulitis, muscle spasm, nerve compression, DVT, arterial occlusion, herpes zoster, electrolyte abnormality, tumor.... This is not meant to be in all inclusive list EKG interpreted by me (3pts min.). @ -As above X-rays interpreted by me (1pt min.). @ -X-ray shows no fracture or dislocation CT interpreted by me (1pt min.). @ -None done U/S interpreted by me (1pt. min.). @ -None done What testing was considered but not performed or refused? (CT, X-rays, U/S, labs)? Why? @ -None What meds were considered but not given or refused? Why? @ -None Did you discuss the management of the patient with other professionals (professionals i.e. , PA, OIL WELL FISHING TOOL TECHNICIAN, lab, RT, psych nurse, social sciences lecturer, asphalt paving superintendent, teacher, chief customer officer, medical case worker)? Give summary @ -No Was smoking cessation discussed for >3mins.? @ -No Was critical care preformed (if so, how long)? @ -No Were there social determinants of health that impacted care today? How? (Homelessness, low income, unemployed, alcoholism, drug addiction, transportation, low edu. Level, literacy, decrease access to med. care, senior care, rehab)? @ -No Was there de-escalation of care discussed even if they declined (Discuss DNR or withdrawal of care, Hospice)? DNR status @ -No What co-morbidities impacted this encounter? (DM, HTN, Smoking, COPD, CAD, Cancer, CVA, ARF, Chemo, Hep., AIDS, mental health diagnosis, sleep apnea, morbid obesity)? @ -None Was patient admitted / discharged? Hospital course, mention meds given and route, prescriptions, significant lab abnormalities, going to OR and other pertinent info. @ -27-year-old female presenting with chief complaint of left hand injury. Patient is neurovascularly intact. X-rays are negative for fracture or dislocation. Patient is educated on supportive management and provided with finger splints for her second and third digits. Follow-up with PCP. Report back to ER with any new or worsening symptoms. Discussed return parameters and answered all questions. Patient conveyed verbal understanding and agreed to the plan. I discussed this case in detail with my attending Dr. Corea Undiagnosed new problem with uncertain prognosis? @ -No Drug Therapy requiring intensive monitoring for toxicity (Heparin, Nitro, Insulin, Cardizem)? @ -No Were any procedures done? @ -No Diagnosis/symptom? @ -Finger sprain Acute, or Chronic, or Acute on Chronic? @ -acute Uncomplicated (without systemic symptoms) or Complicated (systemic symptoms)? @ -uncomplicated Side effects of treatment? @ -No Exacerbation, Progression, or Severe Exacerbation? @ -No Poses a threat to life or bodily function? How? (Chest pain, [place], [place], pneumonia, PE, COPD, DKA, ARF, appy, cholecystitis, CVA, Diverticulitis, Homicidal, Suicidal, threat to staff... and all critical care pts) @ -No Disposition Clinical Impression: Finger sprain Disposition: HOME SELF-CARE Condition: Good Instructions (If sedation given, give patient instructions): Finger Sprain (ED) Additional Instructions: Follow-up with PCP. Report back to ER if any new or worsening symptoms. Take Motrin and Tylenol as stated for pain control. Rest, ice, and elevate. Is patient prescribed a controlled substance at d/c from ED?: No Referrals: Tiffanie Graham MD [Primary Care Provider] - 1-2 days Time of Disposition: 17:50
== END 2023-01-28 18:29 | disposition home or self-care (01) ==
LOC: EC 16:26
DX: S63.611A Unspecified sprain of left index finger, initial encounter (principal); J45.909 Unspecified asthma, uncomplicated; E07.9 Disorder of thyroid, unspecified; Z79.890 Hormone replacement therapy; Z79.899 Other long term (current) drug therapy; Z88.0 Allergy status to penicillin; Z88.2 Allergy status to sulfonamides; Z91.018 Allergy to other foods; W22.09XA Striking against other stationary object, initial encounter
CPT/HCPCS: 73130; 99283; 96374; 96375; J2405; J2270

== ENCOUNTER → 2023-02-20 | Outpatient (CLI) | payer MEDICAID, OTHER | END | disposition home or self-care (01) | LOC: LABWHC1 09:09 | PROVIDERS: ATTEND Emergency Medicine | DX: Z53.9 Procedure and treatment not carried out, unspecified reason (principal) ==

== ENCOUNTER 2023-03-05 20:50 | Emergency (ER) | payer MEDICAID, OTHER ==
[2023-03-05] MEDS ORDERED: KETOROLAC 15 MG/ML 1 ML VIAL IVP STA (21:05)
[2023-03-05] MEDS ORDERED: ONDANSETRON 4 MG/2 ML VIAL IVP STA (21:05)
[2023-03-05] MEDS ORDERED: SODIUM CHLORIDE 0.9% 1,000 ML IV STA (21:05)
[2023-03-05] MEDS ORDERED: MORPHINE SULFATE 4 MG/ML SYRINGE IVP STA (21:06)
[2023-03-05 21:13] VITALS: RESP 18; TEMP 98.8
[2023-03-05 22:09] LABS: Basophils % (A) 0 %; Eosinophils # (A) 0.1 k/uL (0-0.7); Eosinophils % (A) 2 %; HCT 41.7 % (34.0-46.0); HGB 14.7 gm/dL (11.4-16.0); Lymphocytes # (A) 3.3 k/uL (1.0-4.8); Lymphocytes % (A) 36 %; MCH 33.5 pg (25.0-35.0); MCHC 35.3 g/dL (31.0-37.0); Mean Platelet Volume 7.7; Monocytes # (A) 0.5 k/uL (0-1.0); Monocytes % (A) 5 %; Neutrophils # (A) 5.2 k/uL (1.3-7.7); Neutrophils % (A) 56 %; Platelet Count 270 k/uL (150-450); RBC 4.39 m/uL (3.80-5.40); RDW 12.1 % (11.5-15.5); WBC 9.3 k/uL (3.8-10.6)
[2023-03-05 22:14] LABS: Appearance,Urine Clear (Clear); Bacteria,Urine Rare /hpf; Bilirubin,Urine Negative (Negative); Blood,Urine Trace (Negative); Color,Urine Colorless; Glucose,Urine (UA) Negative (Negative); Ketones,Urine Negative (Negative); Leukocyte Esterase,Urine Negative (Negative); Nitrite,Urine Negative (Negative); PH, Urine 6.5 (5.0-8.0); Protein,Urine Negative (Negative); Specific Gravity,Urine 1.006 (1.001-1.035); Urobilinogen,Urine <2.0 mg/dL (<2.0)
[2023-03-05 22:20] LABS: ALT 44 U/L (4-34); African American GFR (CKD) >90 (>60 ml/min/1.73 sqM); Amylase 55 U/L (30-110); Anion Gap 12 mmol/L; Blood Urea Nitrogen 16 mg/dL (7-17); Carbon Dioxide 20 mmol/L (22-30); Chloride 104 mmol/L (98-107); Glucose 83 mg/dL (74-99); Lipase 62 U/L (23-300); Non-African American GFR(CKD) >90 (>60 ml/min/1.73 sqM); Sodium 136 mmol/L (137-145)
[2023-03-05 22:56] LABS: AST 52 U/L (14-36); Albumin 4.7 g/dL (3.5-5.0); Alkaline Phosphatase 76 U/L (38-126); Potassium 5.6 mmol/L (3.5-5.1); Total Bilirubin 0.8 mg/dL (0.2-1.3); Total Protein 8.2 g/dL (6.3-8.2)
[2023-03-05] MEDS ORDERED: HYDROmorphone 1 MG/ML 1 ML SYRINGE IVP STA (23:17)
--- NOTE | 2023-03-05 23:17 | US ---
EXAM: US Pelvis Transvaginal CLINICAL HISTORY: ITS.REASON US Reason: L pelvic pain TECHNIQUE: Real-time transvaginal pelvic ultrasound with image documentation. Transvaginal imaging was used for better evaluation of the endometrium and adnexa. COMPARISON: 12/01/2021 FINDINGS: Uterus/cervix: Uterus measures 6.9 x 2.9 x 3.2 cm. Endometrial stripe measures 0.7 cm. No myometrial mass. Right ovary: Right ovary measures 2.6 x 1.6 x 2.0 cm. Normal blood flow. Left ovary: Left ovary measures 2.9 x 1.4 x 2.5 cm. Normal blood flow. Free fluid: Minimal free fluid. Bladder: Empty bladder which cannot be evaluated with this probe. IMPRESSION: No acute findings in the pelvis.
[2023-03-05 23:38] VITALS: BP 144/98; PULSE 73
--- NOTE | 2023-03-06 00:39 | ED ---
Abdominal Pain HPI - General Chief Complaint: Abdominal Pain Stated Complaint: Abdominal Pain Time Seen by Provider: 03/05/23 20:56 Source: patient Mode of arrival: ambulatory Limitations: no limitations - History of Present Illness Initial Comments: 28-year-old female presenting with chief complaint of abdominal pain. Patient states she has had left lower quadrant pain ongoing since Monday. Patient has been seen at 2 other institutions for this pain, she has had an abdominal CT and abdominal ultrasound, she informs me that the ET showed nonspecific findings and she was not specifically informed of her ultrasound results.. She has had con tinued pain as well as nausea and vomiting from this pain. Patient has history of endometriosis, states that this feels somewhat similar to previous endometriosis related pain. Denies diarrhea or constipation. No purulent vaginal discharge. No fever, chills, chest pain, difficulty breathing, dy suria, hematuria, flank pain. - Related Data Home Medications Medication Instructions Recorded Confirmed Albuterol Nebulized [Ventolin 2.5 mg INHALATION RT-QID PRN 05/18/22 06/22/22 Nebulized] Dicyclomine [Bentyl] 10 mg PO TID PRN 05/18/22 06/22/22 Levothyroxine Sodium [Synthroid] 137 mcg PO DAILY 05/18/22 06/22/22 Albuterol Sulfate [Albuterol 1 - 2 puff PO RT-Q4H PRN 06/22/22 06/22/22 Sulfate Hfa] Previous Rx's Medication Instructions Recorded clindamycin HCL 300 mg PO QID #40 cap 11/28/22 HYDROcodone/APAP 7.5-325MG [Sylvester 1 tab PO Q6HR PRN 3 Days #12 tab 12/13/22 7.5-325] Ibuprofen [Motrin] 600 mg PO Q8HR PRN #20 tab 12/13/22 Ondansetron Odt [Zofran Odt] 4 mg PO Q8HR PRN #10 tab 12/13/22 Oseltamivir [Tamiflu] 75 mg PO Q12HR #10 cap 01/08/23 Acetaminophen-Codeine 300-30mg 1 tab PO Q6H PRN 3 Days #12 tablet 03/06/23 [Tylenol w/codeine #3] Ketorolac [Toradol] 10 mg PO Q6HR PRN #12 tab 03/06/23 Allergies Allergy/AdvReac Type Severity Reaction Status Date / Time amoxicillin Allergy Rash/Hives Verified 01/08/23 17:50 nickel Allergy Rash/Hives Verified 01/08/23 17:50 sulfamethoxazole Allergy Rash/Hives Verified 01/08/23 17:50 [From ] trimethoprim [From ] Allergy Rash/Hives Verified 01/08/23 17:50 corn AdvReac Diarrhea Verified 01/08/23 17:50 Review of Systems ROS Statement: Those systems with pertinent positive or pertinent negative responses have been documented in the HPI. ROS Other: All systems not noted in ROS Statement are negative. Past Medical History Past Medical History: Asthma, Mitral Valve Prolapse (MVP), Thyroid Disorder Additional Past Medical History / Comment(s): colitis History of Any Multi-Drug Resistant Organisms: None Reported Past Surgical History: Appendectomy, Section Additional Past Surgical History / Comment(s): throidectomy 09/2017 Past Psychological History: Anxiety, Depression, No Psychological Hx Reported Smoking Status: Never smoker Past Alcohol Use History: Occasional, Rare Past Drug Use History: None Reported - Past Family History Mother Family Medical History: Asthma Father Family Medical History: Coronary Artery Disease (CAD), CVA/TIA Brother(s) Family Medical History: Asthma General Exam Limitations: no limitations General appearance: alert, in no apparent distress Head exam: Present: atraumatic, normocephalic Eye exam: Present: normal appearance Neck exam: Present: normal inspection Respiratory exam: Present: normal lung sounds bilaterally. Absent: respiratory distress, wheezes, rales, rhonchi, stridor Cardiovascular Exam: Present: regular rate, normal rhythm, normal heart sounds. Absent: systolic murmur, diastolic murmur, rubs, gallop, clicks GI/Abdominal exam: Present: soft, tenderness (Some left-sided pelvic tenderness). Absent: distended, guarding, rebound, rigid Neurological exam: Present: alert, oriented X3 Psychiatric exam: Present: normal affect, normal mood Skin exam: Present: warm, dry Course Vital Signs 03/05/23 03/05/23 20:51 23:31 Temperature 98.8 F Pulse Rate 83 73 Respiratory 18 18 Rate Blood Pressure 148/100 144/98 O2 Sat by Pulse 98 95 Oximetry Medical Decision Making - Medical Decision Making Was pt. sent in by a medical professional or institution (KESHA Heredia, HEAT SET OPERATOR, urgent care, hospital, or skilled nursing...) When possible be specific @ -No Did you speak to anyone other than the patient for history (EMS, parent, family, police, friend...)? What history was obtained from this source @ -No Did you review nursing and triage notes (agree or disagree)? Why? @ -I reviewed and agree with nursing and triage notes Were old charts reviewed (outside hosp., previous admission, EMS record, old EKG, old radiological studies, urgent care reports/EKG's, skilled nursing records)? Report findings @ -No old charts were reviewed Differential Diagnosis (chest pain, altered mental status, abdominal pain women, abdominal pain men, vaginal bleeding, weakness, fever, dyspnea, syncope, headache, dizziness, GI bleed, back pain, seizure, CVA, palpatations, mental health, musculoskeletal)? @ -MDM Differential Abdominal Pain Women: Appendicitis, Cholecystitis, diverticulosis, ischemic bowel, pancreatitis, hepatitis, UTI, gastroenteritis, AAA, incarcerated hernia, bowel obstruction, constipation, inflammatory bowel, hepatitis, peptic ulcer disease, splenic infarction, perforated viscus, vulvitis, ovarian torsion, PID, kidney stone, placenta abruption... This is not meant to be an all-inclusive list EKG interpreted by me (3pts min.). @ -As above X-rays interpreted by me (1pt min.). @ -None done CT interpreted by me (1pt min.). @ -None done U/S interpreted by me (1pt. min.). @ -Ultrasound shows no acute findings in the pelvis What testing was considered but not performed or refused? (CT, X-rays, U/S, labs)? Why? @ -None What meds were considered but not given or refused? Why? @ -None Did you discuss the management of the patient with other professionals (professionals i.e. KESHA Heredia, HEAT SET OPERATOR, lab, RT, psych nurse, director social welfare, sawmill manager, teacher, chief contract officer, employment evaluator/case manager)? Give summary @ -No Was smoking cessation discussed for >3mins.? @ -No Was critical care preformed (if so, how long)? @ -No Were there social determinants of health that impacted care today? How? (Homelessness, low income, unemployed, alcoholism, drug addiction, transportation, low edu. Level, literacy, decrease access to med. care, alf, rehab)? @ -No Was there de-escalation of care discussed even if they declined (Discuss DNR or withdrawal of care, Hospice)? DNR status @ -No What co-morbidities impacted this encounter? (DM, HTN, Smoking, COPD, CAD, Cancer, CVA, ARF, Chemo, Hep., AIDS, mental health diagnosis, sleep apnea, morbid obesity)? @ -None Was patient admitted / discharged? Hospital course, mention meds given and route, prescriptions, significant lab abnormalities, going to OR and other pertinent info. @ -28-year-old female presenting with chief complaint of abdominal pain. Patient has been experiencing left-sided pelvic pain as well as nausea and vomiting for several days. She is alert he received a computed tomography scan of the different institution. She states that she received an ultrasound at another ER but was not specifically told the results. History and physical examination are conducted. Attempted to obtain ultrasound records however the essential location is closed at this time. Patient is given pain and nausea medication. No leukocytosis or anemia. Initial potassium hemolyzed impulsivity elevated at 5.6, repeat is 4.4. Lactic acid 2.1, patient is receiving IV fluid s. Mild transaminitis. Urine shows no infectious process or bleeding. HCG is negative. Transvaginal ultrasound shows no acute process. On reassessment patient states that her pain has improved. I informed the patient of the results, she states that this pain feels similar to previous episodes of endometriosis related pain. She is instructed to follow-up with her [facility]. She is sent a short course of pain medication to her pharmacy. Follow-up with PCP. Report back to ER with any new or worsening symptoms. Discussed return parameters and answered all questions. Patient conveyed verbal understanding and agreed to the plan. I discussed this case in detail with my attending Dr. Ibarra Undiagnosed new problem with uncertain prognosis? @ -No Drug Therapy requiring intensive monitoring for toxicity (Heparin, Nitro, Insulin, Cardizem)? @ -No Were any procedures done? @ -No Diagnosis/symptom? @ -Pelvic pain Acute, or Chronic, or Acute on Chronic? @ -Acute Uncomplicated (without systemic symptoms) or Complicated (systemic symptoms)? @ -Uncomplicated Side effects of treatment? @ -No Exacerbation, Progression, or Severe Exacerbation? @ -No Poses a threat to life or bodily function? How? (Chest pain, USA, MD, pneumonia, PE, COPD, DKA, ARF, appy, cholecystitis, CVA, Diverticulitis, Homicidal, Suicidal, threat to staff... and all critical care pts) @ -No - Lab Data Result diagrams: 03/05/23 21:55 03/05/23 23:32 Lab Results 03/05/23 03/05/23 03/05/23 Range/Units 21:55 21:55 21:55 WBC 9.3 (3.8-10.6) k/uL RBC 4.39 (3.80-5.40) m/uL Hgb 14.7 (11.4-16.0) gm/dL Hct 41.7 (34.0-46.0) % MCV 95.0 (80.0-100.0) fL MCH 33.5 (25.0-35.0) pg MCHC 35.3 (31.0-37.0) g/dL RDW 12.1 (11.5-15.5) % Plt Count 270 (150-450) k/uL MPV 7.7 Neutrophils % 56 % Lymphocytes % 36 % Monocytes % 5 % Eosinophils % 2 % Basophils % 0 % Neutrophils # 5.2 (1.3-7.7) k/uL Lymphocytes # 3.3 (1.0-4.8) k/uL Monocytes # 0.5 (0-1.0) k/uL Eosinophils # 0.1 (0-0.7) k/uL Basophils # 0.0 (0-0.2) k/uL Sodium (137-145) mmol/L Potassium (3.5-5.1) mmol/L Chloride (98-107) mmol/L Carbon Dioxide (22-30) mmol/L Anion Gap mmol/L BUN (7-17) mg/dL Creatinine (0.52-1.04) mg/dL Est GFR (CKD-EPI)AfAm (>60 ml/min/1.73 sqM) Est GFR (CKD-EPI)NonAf (>60 ml/min/1.73 sqM) Glucose (74-99) mg/dL Lactic Ac Sepsis Rflx Plasma Lactic Acid Beau (0.7-2.0) mmol/L Calcium (8.4-10.2) mg/dL Total Bilirubin (0.2-1.3) mg/dL AST (14-36) U/L ALT (4-34) U/L Alkaline Phosphatase (38-126) U/L Total Protein (6.3-8.2) g/dL Albumin (3.5-5.0) g/dL Amylase (30-110) U/L Lipase (23-300) U/L Urine Color Colorless Urine Appearance Clear (Clear) Urine pH 6.5 (5.0-8.0) Ur Specific [place] 1.006 (1.001-1.035) Urine Protein Negative (Negative) Urine Glucose (UA) Negative (Negative) Urine Ketones Negative (Negative) Urine Blood Trace H (Negative) Urine Nitrite Negative (Negative) Urine Bilirubin Negative (Negative) Urine Urobilinogen <2.0 (<2.0) mg/dL Ur Leukocyte Esterase Negative (Negative) Urine Bacteria Rare H (None) /hpf Urine HCG, Qual Not Detected (Not Detectd) 03/05/23 03/05/23 03/05/23 Range/Units 21:55 21:55 22:51 WBC (3.8-10.6) k/uL RBC (3.80-5.40) m/uL Hgb (11.4-16.0) gm/dL Hct (34.0-46.0) % MCV (80.0-100.0) fL MCH (25.0-35.0) pg MCHC (31.0-37.0) g/dL RDW (11.5-15.5) % Plt Count (150-450) k/uL MPV Neutrophils % % Lymphocytes % % Monocytes % % Eosinophils % % Basophils % % Neutrophils # (1.3-7.7) k/uL Lymphocytes # (1.0-4.8) k/uL Monocytes # (0-1.0) k/uL Eosinophils # (0-0.7) k/uL Basophils # (0-0.2) k/uL Sodium 136 L (137-145) mmol/L Potassium 5.6 H (3.5-5.1) mmol/L Chloride 104 (98-107) mmol/L Carbon Dioxide 20 L (22-30) mmol/L Anion Gap 12 mmol/L BUN 16 (7-17) mg/dL Creatinine 0.52 (0.52-1.04) mg/dL Est GFR (CKD-EPI)AfAm >90 (>60 ml/min/1.73 sqM) Est GFR (CKD-EPI)NonAf >90 (>60 ml/min/1.73 sqM) Glucose 83 (74-99) mg/dL Lactic Ac Sepsis Rflx Y Plasma Lactic Acid Beau 2.1 H* (0.7-2.0) mmol/L Calcium 9.0 (8.4-10.2) mg/dL Total Bilirubin 0.8 (0.2-1.3) mg/dL AST 52 H (14-36) U/L ALT 44 H (4-34) U/L Alkaline Phosphatase 76 (38-126) U/L Total Protein 8.2 (6.3-8.2) g/dL Albumin 4.7 (3.5-5.0) g/dL Amylase 55 (30-110) U/L Lipase 62 (23-300) U/L Urine Color Urine Appearance (Clear) Urine pH (5.0-8.0) Ur Specific [place] (1.001-1.035) Urine Protein (Negative) Urine Glucose (UA) (Negative) Urine Ketones (Negative) Urine Blood (Negative) Urine Nitrite (Negative) Urine Bilirubin (Negative) Urine Urobilinogen (<2.0) mg/dL Ur Leukocyte Esterase (Negative) Urine Bacteria (None) /hpf Urine HCG, Qual (Not Detectd) 03/05/23 Range/Units 23:32 WBC (3.8-10.6) k/uL RBC (3.80-5.40) m/uL Hgb (11.4-16.0) gm/dL Hct (34.0-46.0) % MCV (80.0-100.0) fL MCH (25.0-35.0) pg MCHC (31.0-37.0) g/dL RDW (11.5-15.5) % Plt Count (150-450) k/uL MPV Neutrophils % % Lymphocytes % % Monocytes % % Eosinophils % % Basophils % % Neutrophils # (1.3-7.7) k/uL Lymphocytes # (1.0-4.8) k/uL Monocytes # (0-1.0) k/uL Eosinophils # (0-0.7) k/uL Basophils # (0-0.2) k/uL Sodium (137-145) mmol/L Potassium 4.4 (3.5-5.1) mmol/L Chloride (98-107) mmol/L Carbon Dioxide (22-30) mmol/L Anion Gap mmol/L BUN (7-17) mg/dL Creatinine (0.52-1.04) mg/dL Est GFR (CKD-EPI)AfAm (>60 ml/min/1.73 sqM) Est GFR (CKD-EPI)NonAf (>60 ml/min/1.73 sqM) Glucose (74-99) mg/dL Lactic Ac Sepsis Rflx Plasma Lactic Acid Beau (0.7-2.0) mmol/L Calcium (8.4-10.2) mg/dL Total Bilirubin (0.2-1.3) mg/dL AST (14-36) U/L ALT (4-34) U/L Alkaline Phosphatase (38-126) U/L Total Protein (6.3-8.2) g/dL Albumin (3.5-5.0) g/dL Amylase (30-110) U/L Lipase (23-300) U/L Urine Color Urine Appearance (Clear) Urine pH (5.0-8.0) Ur Specific [place] (1.001-1.035) Urine Protein (Negative) Urine Glucose (UA) (Negative) Urine Ketones (Negative) Urine Blood (Negative) Urine Nitrite (Negative) Urine Bilirubin (Negative) Urine Urobilinogen (<2.0) mg/dL Ur Leukocyte Esterase (Negative) Urine Bacteria (None) /hpf Urine HCG, Qual (Not Detectd) Disposition Clinical Impression: Pelvic pain Disposition: HOME SELF-CARE Condition: Good Instructions (If sedation given, give patient instructions): Endometriosis (ED), Pelvic Pain in Women (ED) Additional Instructions: Follow up with [facility]. Report back to ER with any new or worsening symptoms. Prescriptions: Ketorolac [Toradol] 10 mg PO Q6HR PRN #12 tab PRN Reason: Pain Acetaminophen-Codeine 300-30mg [Tylenol w/codeine #3] 1 tab PO Q6H PRN 3 Days #12 tablet PRN Reason: Pain Is patient prescribed a controlled substance at d/c from ED?: Yes If prescribed controlled substance>3 days was MAPS reviewed?: Prescribed <3 Days Referrals: Tiffanie Graham MD [Primary Care Provider] - 1-2 days Nohemi Morris DO [Doctor of Osteopathic Medicine] - 1-2 days Mallory Ferguson MD [STAFF PHYSICIAN] - 1-2 days Time of Disposition: 00:39
== END 2023-03-06 00:55 | disposition home or self-care (01) ==
LOC: EC 20:50
DX: R10.2 Pelvic and perineal pain (principal); J45.909 Unspecified asthma, uncomplicated; E07.9 Disorder of thyroid, unspecified; Z79.890 Hormone replacement therapy; Z79.899 Other long term (current) drug therapy; Z88.0 Allergy status to penicillin; Z91.018 Allergy to other foods; Z88.2 Allergy status to sulfonamides; Z88.8 Allergy status to other drugs, medicaments and biological substances; Z86.59 Personal history of other mental and behavioral disorders
CPT/HCPCS: 36415; 80053; 82150; 83605; 83690; 84132; 85025; 81001; 81025; 93975; 76830; 99284; 96374; 96375 ×3; 96361 ×2; J2270; J2405; J1170; J1885

== ENCOUNTER 2023-03-08 14:33 | Emergency (ER) | payer MEDICAID, OTHER ==
[2023-03-08] MEDS ORDERED: KETOROLAC 15 MG/ML 1 ML VIAL IVP STA (15:18)
[2023-03-08] MEDS ORDERED: SODIUM CHLORIDE 0.9% 500 ML 500 ML IV STA (15:18)
[2023-03-08] MEDS ORDERED: HYDROmorphone 1 MG/ML 1 ML SYRINGE IVP STA (15:18)
--- NOTE | 2023-03-08 16:04 | ED ---
Recheck HPI - General Chief Complaint: Abdominal Pain Stated Complaint: Abd,Pelvic Pain Time Seen by Provider: 03/08/23 15:12 Source: patient, RN notes reviewed, old records reviewed Mode of arrival: ambulatory Limitations: no limitations - History of Present Illness Initial Comments: This is a 28-year-old female to the emergency department for evaluation abdominal pain severe abdominal pain chronic abdominal pain here in the emergency department patient has persistent abdominal pain here in the emergency department with history of endometriosis and fibroid uterus. Patient's pain is difficult to control and she was having some nausea prior to arrival. MD Complaint: medication refill request, other (Uncontrolled pain and pelvic pain) Returns Today for: persistent/worsening pain related to initial visit Associated Symptoms: none Treatments Prior to Arrival: Given Pain Meds on - Related Data Home Medications Medication Instructions Recorded Confirmed Albuterol Nebulized [Ventolin 2.5 mg INHALATION RT-QID PRN 05/18/22 03/10/23 Nebulized] Dicyclomine [Bentyl] 10 mg PO TID PRN 05/18/22 03/14/23 Levothyroxine Sodium [Synthroid] 137 mcg PO DAILY 05/18/22 03/10/23 Albuterol Sulfate [Albuterol 1 - 2 puff PO RT-Q4H PRN 06/22/22 03/10/23 Sulfate Hfa] ALPRAZolam [Xanax] 1 mg PO BID PRN 03/10/23 03/14/23 Cholecalciferol (Vitamin D3) 1 tab PO DAILY 03/10/23 03/10/23 [Vitamin D3 (125 MCG = 5,000 IU)] Desvenlafaxine [Pristiq ER] 100 mg PO QAM 03/10/23 03/10/23 Montelukast [Singulair] 10 mg PO QAM 03/10/23 03/10/23 Propranolol [Inderal] 10 mg PO TID 03/10/23 03/14/23 predniSONE 5 mg PO BID 03/10/23 03/10/23 Previous Rx's Medication Instructions Recorded HYDROcodone/APAP 7.5-325MG [[place] 1 tab PO Q6HR PRN 3 Days #12 tab 12/13/22 7.5-325] Ibuprofen [Motrin] 600 mg PO Q8HR PRN #20 tab 12/13/22 Ondansetron Odt [Zofran Odt] 4 mg PO Q8HR PRN #10 tab 12/13/22 Ketorolac [Toradol] 10 mg PO Q6HR PRN #12 tab 03/06/23 Allergies Allergy/AdvReac Type Severity Reaction Status Date / Time amoxicillin Allergy Rash/Hives Verified 03/14/23 08:46 nickel Allergy Rash/Hives Verified 03/14/23 08:46 sulfamethoxazole Allergy Rash/Hives Verified 03/14/23 08:46 [From ] trimethoprim [From ] Allergy Rash/Hives Verified 03/14/23 08:46 codeine AdvReac Unknown Verified 03/14/23 08:46 corn AdvReac Diarrhea Verified 03/14/23 08:46 Review of Systems ROS Statement: Those systems with pertinent positive or pertinent negative responses have been documented in the HPI. ROS Other: All systems not noted in ROS Statement are negative. Past Medical History Past Medical History: Asthma, Mitral Valve Prolapse (MVP), Thyroid Disorder Additional Past Medical History / Comment(s): colitis, endometriosis History of Any Multi-Drug Resistant Organisms: None Reported Past Surgical History: Appendectomy, Section Additional Past Surgical History / Comment(s): throidectomy 09/2017 Past Psychological History: Anxiety, Depression, No Psychological Hx Reported Smoking Status: Never smoker Past Alcohol Use History: Occasional, Rare Past Drug Use History: None Reported - Past Family History Mother Family Medical History: Asthma Father Family Medical History: Coronary Artery Disease (CAD), CVA/TIA Brother(s) Family Medical History: Asthma General Exam Limitations: no limitations General appearance: alert, in no apparent distress, anxious Head exam: Present: atraumatic, normocephalic, normal inspection Eye exam: Present: normal appearance, PERRL, EOMI. Absent: scleral icterus, conjunctival injection, periorbital swelling ENT exam: Present: normal exam, mucous membranes moist Neck exam: Present: normal inspection. Absent: tenderness, meningismus, lymphadenopathy Respiratory exam: Present: normal lung sounds bilaterally. Absent: respiratory distress, wheezes, rales, rhonchi, stridor Cardiovascular Exam: Present: normal rhythm, tachycardia, normal heart sounds. Absent: systolic murmur, diastolic murmur, rubs, gallop, clicks GI/Abdominal exam: Present: soft, normal bowel sounds. Absent: distended, tend erness, guarding, rebound, rigid Extremities exam: Present: normal inspection, full ROM, normal capillary refill. Absent: tenderness, pedal edema, joint swelling, calf tenderness Back exam: Present: normal inspection Neurological exam: Present: alert, oriented X3, CN II-XII intact Psychiatric exam: Present: normal affect, normal mood Skin exam: Present: warm, dry, intact, normal color. Absent: rash Course Vital Signs 03/08/23 03/08/23 03/08/23 14:54 14:57 17:25 Temperature 97.2 F L Pulse Rate 114 H 75 117 H Respiratory 20 20 18 Rate Blood Pressure 132/107 132/100 129/88 O2 Sat by Pulse 98 98 96 Oximetry 03/08/23 03/08/23 18:00 20:06 Temperature 98.4 F Pulse Rate 94 98 Respiratory 16 18 Rate Blood Pressure 110/74 107/78 O2 Sat by Pulse 92 L 94 L Oximetry - Reevaluation(s) Reevaluation #1: Medical record is reviewed Reevaluation #2: Patient symptoms are improved Reevaluation #3: Patient informed results and questions answered Reevaluation #4: Was pt. sent in by a medical professional or institution (, PA, MANAGER LIGHTING, urgent care, hospital, or shelter...) When possible be specific @ -no Did you speak to anyone other than the patient for history (EMS, parent, family, police, friend...)? What history was obtained from this source @ -no Did you review nursing and triage notes (agree or disagree)? Why? @ -agree Are old charts reviewed (outside hosp., previous admission, EMS record, old EKG, old radiological studies, urgent care reports/EKG's, shelter records)? Report findings @ -yes Differential Diagnosis (chest pain, altered mental status, abdominal pain women, abdominal pain men, vaginal bleeding, weakness, fever, dyspnea, syncope, headache, dizziness, GI bleed, back pain, seizure, CVA, palpatations, mental health, musculoskeletal)? @ -prior EKG interpreted by me (3pts min.). @ -no X-rays interpreted by me (1pt min.). @ -no CT interpreted by me (1pt min.). @ -no U/S interpreted by me (1pt. min.). @ -no What testing was considered but not performed or refused? (CT, X-rays, U/S, labs)? Why? @ -none What meds were considered but not given or refused? Why? @ -none Did you discuss the management of the patient with other professionals (professionals i.e. , PA, MANAGER LIGHTING, lab, RT, psych nurse, aids social worker, tracer bullet charging machine operator, teacher, data officer, case management specialist)? Give summary @ -no Was smoking cessation discussed for >3mins.? @ -no Were there social determinants of health that impacted care today? How? (Homele ssness, low income, unemployed, alcoholism, drug addiction, transportation, low edu. Level, literacy, decrease access to med. care, alf, rehab)? @ -none Was there de-escalation of care discussed even if they declined (Discuss DNR or withdrawal of care, Hospice)? DNR status @ -no What co-morbidities impacted this encounter? (DM, HTN, Smoking, COPD, CAD, Cancer, CVA, ARF, Chemo, Hep., AIDS, mental health diagnosis, sleep apnea, morbid obesity)? @ -none Was patient admitted / discharged? Hospital course, mention meds given and route, prescriptions, significant lab abnormalities, going to OR and other pertinent info. @ - 28 female to the ER today for evaluation of abdominal pain and pelvic pain with history of endometriosis. Fibroids. Patient has a for uncontrolled pain, pain is well-controlled here in the ER she currently feels well can be discharged home Discharge Was critical care preformed (if so, how long)? @ -no Undiagnosed new problem with uncertain prognosis? @ -no Drug Therapy requiring intensive monitoring for toxicity (Heparin, Nitro, Insulin, Cardizem)? @ -no Were any procedures done? @ -no Diagnosis/symptom? @ -Bowel pain chronic pelvic pain Acute, or Chronic, or Acute on Chronic? @ -Acute Uncomplicated (without systemic symptoms) or Complicated (systemic symptoms)? @ -Complicated Side effects of treatment? @ -no Exacerbation, Progression, or Severe Exacerbation? @ -exacerbation Poses a threat to life or bodily function? How? (Chest pain, USA, [place], pneumonia, PE, COPD, DKA, ARF, appy, cholecystitis, CVA, Diverticulitis, Homicidal, Suicidal, threat to staff... and all critical care pts) @ -no Reevaluation #5: Differential Abdominal Pain Women: Appendicitis, Cholecystitis, diverticulosis, ischemic bowel, pancreatitis, hepatitis, UTI, gastroenteritis, AAA, incarcerated hernia, bowel obstruction, constipation, inflammatory bowel, hepatitis, peptic ulcer disease, splenic infarction, perforated viscus, vulvitis, ovarian torsion, PID, kidney stone, placenta abruption, this is not meant to be an all-inclusive list Medical Decision Making - Medical Decision Making 28 female to the ER today for evaluation of abdominal pain and pelvic pain with history of endometriosis. Fibroids. Patient has a for uncontrolled pain, pain is well-controlled here in the ER she currently feels well can be discharged home - Lab Data Result diagrams: 03/08/23 15:18 03/08/23 15:18 Lab Results 03/08/23 03/08/23 03/08/23 Range/Units 15:18 15:18 15:36 WBC 12.7 H (3.8-10.6) k/uL RBC 4.57 (3.80-5.40) m/uL Hgb 15.0 (11.4-16.0) gm/dL Hct 43.5 (34.0-46.0) % MCV 95.3 (80.0-100.0) fL MCH 32.9 (25.0-35.0) pg MCHC 34.6 (31.0-37.0) g/dL RDW 11.9 (11.5-15.5) % Plt Count 360 (150-450) k/uL MPV 7.4 Neutrophils % 66 % Lymphocytes % 26 % Monocytes % 6 % Eosinophils % 0 % Basophils % 0 % Neutrophils # 8.4 H (1.3-7.7) k/uL Lymphocytes # 3.2 (1.0-4.8) k/uL Monocytes # 0.8 (0-1.0) k/uL Eosinophils # 0.1 (0-0.7) k/uL Basophils # 0.1 (0-0.2) k/uL Sodium 142 (137-145) mmol/L Potassium 5.0 (3.5-5.1) mmol/L Chloride 102 (98-107) mmol/L Carbon Dioxide 26 (22-30) mmol/L Anion Gap 14 mmol/L BUN 21 H (7-17) mg/dL Creatinine 0.73 (0.52-1.04) mg/dL Est GFR (CKD-EPI)AfAm >90 (>60 ml/min/1.73 sqM) Est GFR (CKD-EPI)NonAf >90 (>60 ml/min/1.73 sqM) Glucose 107 H (74-99) mg/dL Calcium 9.9 (8.4-10.2) mg/dL Total Bilirubin 0.7 (0.2-1.3) mg/dL AST 36 (14-36) U/L ALT 34 (4-34) U/L Alkaline Phosphatase 72 (38-126) U/L Total Protein 8.6 H (6.3-8.2) g/dL Albumin 4.8 (3.5-5.0) g/dL Amylase 59 (30-110) U/L Lipase 72 (23-300) U/L Urine Color Light Yellow Urine Appearance Clear (Clear) Urine pH 6.0 (5.0-8.0) Ur Specific [place] 1.031 (1.001-1.035) Urine Protein Negative (Negative) Urine Glucose (UA) 3+ H (Negative) Urine Ketones Negative (Negative) Urine Blood Trace H (Negative) Urine Nitrite Negative (Negative) Urine Bilirubin Negative (Negative) Urine Urobilinogen <2.0 (<2.0) mg/dL Ur Leukocyte Esterase Negative (Negative) Urine RBC 1 (0-5) /hpf Urine WBC 1 (0-5) /hpf Ur Squamous Epith Cells 1 (0-4) /hpf Calcium Oxalate Crystal Few H (None) /hpf Urine Mucus Rare H (None) /hpf Disposition Clinical Impression: Pelvic pain, Abdominal pain Disposition: HOME SELF-CARE Condition: Good Instructions (If sedation given, give patient instructions): Abdominal Pain (ED) Is patient prescribed a controlled substance at d/c from ED?: No Referrals: Tiffanie Graham MD [Primary Care Provider] - 1-2 days Nohemi Morris DO [Doctor of Osteopathic Medicine] - 1-2 days Time of Disposition: 19:30
[2023-03-08 16:06] LABS: Basophils # (A) 0.1 k/uL (0-0.2); Basophils % (A) 0 %; Eosinophils # (A) 0.1 k/uL (0-0.7); Eosinophils % (A) 0 %; HCT 43.5 % (34.0-46.0); Lymphocytes # (A) 3.2 k/uL (1.0-4.8); Lymphocytes % (A) 26 %; MCH 32.9 pg (25.0-35.0); MCHC 34.6 g/dL (31.0-37.0); MCV 95.3 fL (80.0-100.0); Mean Platelet Volume 7.4; Monocytes # (A) 0.8 k/uL (0-1.0); Monocytes % (A) 6 %; Neutrophils # (A) 8.4 k/uL (1.3-7.7); Neutrophils % (A) 66 %; Platelet Count 360 k/uL (150-450); RBC 4.57 m/uL (3.80-5.40); RDW 11.9 % (11.5-15.5); WBC 12.7 k/uL (3.8-10.6)
[2023-03-08 16:38] LABS: ALT 34 U/L (4-34); AST 36 U/L (14-36); African American GFR (CKD) >90 (>60 ml/min/1.73 sqM); Albumin 4.8 g/dL (3.5-5.0); Alkaline Phosphatase 72 U/L (38-126); Amylase 59 U/L (30-110); Anion Gap 14 mmol/L; Blood Urea Nitrogen 21 mg/dL (7-17); Calcium 9.9 mg/dL (8.4-10.2); Carbon Dioxide 26 mmol/L (22-30); Chloride 102 mmol/L (98-107); Glucose 107 mg/dL (74-99); Lipase 72 U/L (23-300); Non-African American GFR(CKD) >90 (>60 ml/min/1.73 sqM); Sodium 142 mmol/L (137-145); Total Bilirubin 0.7 mg/dL (0.2-1.3); Total Protein 8.6 g/dL (6.3-8.2)
[2023-03-08 17:07] LABS: Appearance,Urine Clear (Clear); Bilirubin,Urine Negative (Negative); Blood,Urine Trace (Negative); Calcium Oxalate Crystals,Urine Few /hpf; Color,Urine Light Yellow; Glucose,Urine (UA) 3+ (Negative); Ketones,Urine Negative (Negative); Leukocyte Esterase,Urine Negative (Negative); Mucus,Urine Rare /hpf; Nitrite,Urine Negative (Negative); Protein,Urine Negative (Negative); RBC,Urine 1 /hpf (0-5); Specific Gravity,Urine 1.031 (1.001-1.035); Squamous Epithelial Cell,Urine 1 /hpf (0-4); Urobilinogen,Urine <2.0 mg/dL (<2.0); WBC,Urine 1 /hpf (0-5)
[2023-03-08] MEDS ORDERED: PROCHLORPERAZINE INJ 10 MG/2 ML VIAL IVP STA (17:11)
[2023-03-08] MEDS ORDERED: diphenhydrAMINE 50 MG/ML 1 ML VIAL IVP STA (17:11)
[2023-03-08] MEDS ORDERED: MORPHINE SULFATE 4 MG/ML SYRINGE IVP STA (17:11)
[2023-03-08] MEDS ORDERED: traMADol 50 MG STARTER PACK 3 TAB BTL PO STA (19:26)
[2023-03-08] MEDS ORDERED: ONDANSETRON 4 MG ODT STARTER PACK 2 TAB BTL PO STA (19:26)
[2023-03-08 20:30] VITALS: BP 107/78; PULSE 98; RESP 18; TEMP 98.4
== END 2023-03-08 20:18 | disposition home or self-care (01) ==
LOC: EC 14:33
DX: G89.29 Other chronic pain (principal); R10.2 Pelvic and perineal pain; D21.9 Benign neoplasm of connective and other soft tissue, unspecified; R00.0 Tachycardia, unspecified; J45.909 Unspecified asthma, uncomplicated; E07.9 Disorder of thyroid, unspecified; F32.A Depression, unspecified; F41.9 Anxiety disorder, unspecified; Z79.890 Hormone replacement therapy; Z79.899 Other long term (current) drug therapy; Z79.52 Long term (current) use of systemic steroids; Z88.5 Allergy status to narcotic agent; Z88.0 Allergy status to penicillin; Z88.1 Allergy status to other antibiotic agents; Z88.2 Allergy status to sulfonamides; Z91.09 Other allergy status, other than to drugs and biological substances; Z91.018 Allergy to other foods
CPT/HCPCS: 36415; 80053; 82150; 83690; 85025; 81001; 99284; 96374; 96375 ×4; J2270; J1200; J0780; J1170; J1885; S0119

== ENCOUNTER 2023-03-14 08:20 | Day surgery (SDC) | payer MEDICAID, OTHER ==
[~2023-03-14 08:20] MED LIST: DEXAMETHASONE SOD PHOSPHATE 4 MG/ML 1 ML VIAL IV ONE; LACTATED RINGERS 1,000 ML IV SCH; ONDANSETRON 4 MG/2 ML VIAL IVP ONE; Pre Op ABX Message 1 EACH MISC MISCELLANE ONE
[2023-03-14] MEDS ORDERED: SCOPOLAMINE 1 MG/72 HR PATCH TRANSDERM ONE (09:16)
[2023-03-14] MEDS ORDERED: MIDAZOLAM 2 MG/2 ML VIAL IVP ONE (09:20)
[2023-03-14] MEDS ORDERED: GLYCOPYRROLATE 0.2 MG/ML 2 ML VIAL ONE (10:09)
[2023-03-14] MEDS ORDERED: SUCCINYLCHOLINE CHLORIDE 200 MG/10 ML VIAL IV ONE (10:09)
[2023-03-14] MEDS ORDERED: fentaNYL (PF) 50 MCG/ML 2 ML AMP ONE (10:09)
[2023-03-14] MEDS ORDERED: MIDAZOLAM 2 MG/2 ML VIAL ONE (10:09)
[2023-03-14] MEDS ORDERED: PROPOFOL 10 MG/ML 20 ML VIAL IV ONE (10:09)
[2023-03-14] MEDS ORDERED: LIDOCAINE 1% INJ 10MG/ML (20 ML MDV) ONE (10:09)
[2023-03-14] MEDS ORDERED: HYDROmorphone (PF) 1 MG/ML ONE (10:09)
[2023-03-14] MEDS ORDERED: NEOSTIGMINE 1 MG/ML 10 ML VIAL ONE (10:09)
[2023-03-14] MEDS ORDERED: ROCURONIUM 10 MG/ML (5 ML VIAL) IV ONE (10:09)
[2023-03-14] MEDS ORDERED: KETOROLAC 15 MG/ML 1 ML VIAL ONE (10:09)
[2023-03-14] MEDS ORDERED: BUPIVACAINE (PF) 0.25% 30 ML VIAL SQ ONE ×3 (10:38→10:52)
[2023-03-14] MEDS ORDERED: LACTATED RINGERS 1,000 ML IV ONE (11:07)
--- NOTE | 2023-03-14 11:10 | P.OP ---
Date of Procedure: 03/14/23 Preoperative Diagnosis: Pelvic pain, history of endometriosis Postoperative Diagnosis: Same Procedure(s) Performed: Diagnostic laparoscopy Anesthesia: LEON Surgeon: Nohemi Morris Estimated Blood Loss (ml): 5 IV fluids (ml): 600 Urine output (ml): 100 Pathology: none sent Condition: stable Disposition: PACU Indications for Procedure: Pelvic pain with known history of endometriosis, status post multiple ER visits for pelvic pain Operative Findings: Mottled appearing uterus, normal ovaries and fallopian tubes bilaterally, small omental adhesion is appreciated mid abdomen Description of Procedure: Patient is taken back to the operating suite where general anesthesia is obtained without difficulty by the anesthesia department. She is prepped and draped in the normal sterile fashion in the dorsal lithotomy position. A red rubber catheter was used to drain the bladder of clear yellow urine. The single-tooth tenaculum was placed on the anterior lip of the cervix and a acorn is placed into the cervix as a means to manipulate the uterus throughout the procedure. Attention was then turned the patient's abdomen where approximately 1 fingerbreadth above the umbilicus a small skin incision is made, through this incision the Veress needles placed, once the Veress needle was deemed to be in the proper position with a drop of CO2 pressure with insufflation of CO2 gas CO2 insufflation was allowed to occur. Approximately 3 L of gas or used to obtain pneumoperitoneum. At this time a 5 mm trocar with a engineering technician scope in place is placed through the skin incision and toward the pneumoperitoneum. The above- noted findings are visualized. An additional port site is placed in the right lateral abdomen. A blunt probe was used to elevate the uterus no adhesions are appreciated no endometriosis is noted posterior to the ovary in the ovarian fossa. The posterior cul-de-sac is free from endometriosis a small amount of physiologic fluid is appreciated no bladder adhesions were appreciated upon inspection. Multiple pictures were taken and all instruments are removed from the patient's abdomen. The skin incisions were closed with 4-0 Vicryl in a subcuticular fashion. Steri-Strips and sterile dressings were applied. Attention is then turned the patient's vaginal vault the single tooth tenaculum was taken off of the anterior lip of the cervix hemostasis was noted the acorn was removed without difficulty. All counts are noted to be correct, patient tolerated procedure well and was taken the recovery room awake in stable condition
[2023-03-14] MEDS ORDERED: ONDANSETRON 4 MG/2 ML VIAL IVP ONE (11:18)
[2023-03-14] MEDS: fentaNYL (PF) 50 MCG/ML 2 ML AMP IV PRN ×2 (11:22→11:38)
[2023-03-14 11:27] VITALS: TEMP 97.1
[2023-03-14] MEDS ORDERED: ACETAMINOPHEN IV (For NPO) 1,000 MG/100 ML VIAL IVPB ONE (11:57)
[2023-03-14] MEDS ORDERED: IBUPROFEN 600 MG TAB PO ONE (12:32)
[2023-03-14 12:38] VITALS: RESP 20
[2023-03-14 13:01] VITALS: BP 139/86; PULSE 106
== END 2023-03-14 13:42 | disposition home or self-care (01) ==
LOC: OR 08:20
PROVIDERS: ATTEND Obstetrics & Gynecology Obstetrics
DX: N80.9 Endometriosis, unspecified (principal); K76.0 Fatty (change of) liver, not elsewhere classified; E07.9 Disorder of thyroid, unspecified; F41.9 Anxiety disorder, unspecified; Z79.899 Other long term (current) drug therapy; Z79.890 Hormone replacement therapy
CPT/HCPCS: 81025; 49320; J2250; J0330; J2710; J2405; J2001; J3010; J1170; J0131; J1885; J2704; J0665

== ENCOUNTER 2023-03-22 21:23 | Observation (INO) | payer MEDICAID, OTHER ==
--- NOTE | 2023-03-22 21:37 | ED ---
Abdominal Pain HPI - General Chief Complaint: Abdominal Pain Stated Complaint: Abd Pain Time Seen by Provider: 03/22/23 21:28 Source: patient, EMS Mode of arrival: EMS - History of Present Illness Initial Comments: 28-year-old female presents to the emergency department as a transfer from [facility]. States that she has had a left lower quadrant abdominal pain for the past 3 weeks. She saw her DENTAL LABORATORY ASSISTANT as she has a history of endometriosis and had a laparoscopy on the . Laparoscopy was normal. She was then referred to a GI doctor from her primary care. States that she is scheduled for colonoscopy however it is not until the end of March. Patient states that the pain was so significant today that she cannot take the pain. She does have Totz at home however did not touch the pain. She went into [facility] where an ultrasound was performed. Arterial flow to the left ovary was not visualized. CT scan was also performed and was negative. Patient was transferred here due to the intractable nature of her pain. She was given 2 doses of Dilaudid as well as Reglan and Benadryl without alleviation of her symptoms. Patient reports that she continues to have pretty significant abdominal pain. Denies diarrhea, constipation, black or bloody stools. No changes in her urination to include dysuria, hematuria or difficulty voiding. No concern for . No other alleviating, precipitating or modifying factors - Related Data Home Medications Medication Instructions Recorded Confirmed Albuterol Nebulized [Ventolin 2.5 mg INHALATION RT-QID PRN 05/18/22 03/23/23 Nebulized] Dicyclomine [Bentyl] 10 mg PO TID PRN 05/18/22 03/23/23 Levothyroxine Sodium [Synthroid] 137 mcg PO DAILY 05/18/22 03/23/23 Albuterol Sulfate [Albuterol 1 - 2 puff PO RT-Q4H PRN 06/22/22 03/23/23 Sulfate Hfa] ALPRAZolam [Xanax] 1 mg PO BID PRN 03/10/23 03/23/23 Cholecalciferol (Vitamin D3) 1 tab PO DAILY 03/10/23 03/23/23 [Vitamin D3 (125 MCG = 5,000 IU)] Desvenlafaxine [Pristiq ER] 100 mg PO QAM 03/10/23 03/23/23 Montelukast [Singulair] 10 mg PO QAM 03/10/23 03/23/23 Propranolol [Inderal] 10 mg PO TID 03/10/23 03/23/23 predniSONE 5 mg PO BID 03/10/23 03/23/23 HYDROcodone/APAP 5-325MG [[place] 2 tab PO Q8H PRN 03/23/23 03/23/23 5-325] Previous Rx's Medication Instructions Recorded Ibuprofen [Motrin] 600 mg PO Q8HR PRN #20 tab 12/13/22 Ondansetron Odt [Zofran Odt] 4 mg PO Q8HR PRN #10 tab 12/13/22 Ketorolac [Toradol] 10 mg PO Q6HR PRN #12 tab 03/06/23 Allergies Allergy/AdvReac Type Severity Reaction Status Date / Time amoxicillin Allergy Rash/Hives Verified 03/23/23 09:10 nickel Allergy Rash/Hives Verified 03/23/23 09:10 sulfamethoxazole Allergy Rash/Hives Verified 03/23/23 09:10 [From Septra] trimethoprim [From Septra] Allergy Rash/Hives Verified 03/23/23 09:10 corn AdvReac Diarrhea Verified 03/23/23 09:10 Review of Systems ROS Statement: Those systems with pertinent positive or pertinent negative responses have been documented in the HPI. ROS Other: All systems not noted in ROS Statement are negative. 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 food and drug inspector History of Any Multi-Drug Resistant Organisms: None Reported Past Surgical History: Appendectomy, Section Additional Past Surgical History / Comment(s): thyroidectomy 09/2017, Laparoscopic exam w/ cautery endometriosis 2012 Past Anesthesia/Blood Transfusion Reactions: No Reported Reaction Past Psychological History: Anxiety, Depression Smoking Status: Never smoker Past Alcohol Use History: Occasional, Rare Past Drug Use History: None Reported - Past Family History Mother Family Medical History: Asthma Father Family Medical History: Coronary Artery Disease (CAD), CVA/TIA Brother(s) Family Medical History: Asthma Course Vital Signs 03/22/23 03/23/23 21:26 09:00 Temperature 98.2 F 98.2 F Pulse Rate 93 105 H Respiratory 18 18 Rate Blood Pressure 138/93 129/88 O2 Sat by Pulse 99 97 Oximetry Medical Decision Making - Medical Decision Making Was pt. sent in by a medical professional or institution (KESHA Heredia, CONTROLLER REPAIRER AND TESTER, urgent care, hospital, or shelter...) When possible be specific @ -No Did you speak to anyone other than the patient for history (EMS, parent, family, police, friend...)? What history was obtained from this source @ -No Did you review nursing and triage notes (agree or disagree)? Why? @ -I reviewed and agree with nursing and triage notes Were old charts reviewed (outside hosp., previous admission, EMS record, old EKG, old radiological studies, urgent care reports/EKG's, shelter records)? Report findings @ -No old charts were reviewed Differential Diagnosis (chest pain, altered mental status, abdominal pain women, abdominal pain men, vaginal bleeding, weakness, fever, dyspnea, syncope, headache, dizziness, GI bleed, back pain, seizure, CVA, palpatations, mental health, musculoskeletal)? @ -Not applicable EKG interpreted by me (3pts min.). @ -As above X-rays interpreted by me (1pt min.). @ -None done CT interpreted by me (1pt min.). @ -None done U/S interpreted by me (1pt. min.). @ -None done What testing was considered but not performed or refused? (CT, X-rays, U/S, labs)? Why? @ -None What meds were considered but not given or refused? Why? @ -None Did you discuss the management of the patient with other professionals (iain dela cruz i.e. KESHA Heredia, CONTROLLER REPAIRER AND TESTER, lab, RT, psych nurse, social media analyst, debt and budget counselor, teacher, chief strategy officer, telephonic case manager)? Give summary @ -No Was smoking cessation discussed for >3mins.? @ -No Was critical care preformed (if so, how long)? @ -No Were there social determinants of health that impacted care today? How? (Homelessness, low income, unemployed, alcoholism, drug addiction, transportation, low edu. Level, literacy, decrease access to med. care, correction, rehab)? @ -No Was there de-escalation of care discussed even if they declined (Discuss DNR or withdrawal of care, Hospice)? DNR status @ -No What co-morbidities impacted this encounter? (DM, HTN, Smoking, COPD, CAD, Cancer, CVA, ARF, Chemo, Hep., AIDS, mental health diagnosis, sleep apnea, morbid obesity)? @ -None Was patient admitted / discharged? Hospital course, mention meds given and route, prescriptions, significant lab abnormalities, going to OR and other pertinent info. @ -Upon arrival patient was placed into room 31. Thorough history and physical exam was performed. She is requiring more pain meds. Patient given a dose of morphine. I did review the transfer packet. There is no arterial flow seen on the patient's abdominal ultrasound and therefore I did recommend repeat. Repeat was performed does demonstrate arterial and venous flow to both ovaries. I discussed results with the patient. She continues to have intractable pain. Patient was transferred here for admission. Spoke with Dr. Avalos who agreed to the admission with psychiatry Undiagnosed new problem with uncertain prognosis? @ -No Drug Therapy requiring intensive monitoring for toxicity (Heparin, Nitro, Insulin, Cardizem)? @ -No Were any procedures done? @ -No Diagnosis/symptom? @ -Default Acute, or Chronic, or Acute on Chronic? @ -Default Uncomplicated (without systemic symptoms) or Complicated (systemic symptoms)? @ -Default Side effects of treatment? @ -No Exacerbation, Progression, or Severe Exacerbation? @ -No Poses a threat to life or bodily function? How? (Chest pain, USA, CT, pneumonia, PE, COPD, DKA, ARF, appy, cholecystitis, CVA, Diverticulitis, Homicidal, Suicidal, threat to staff... and all critical care pts) @ -No - Lab Data Result diagrams: 03/23/23 06:25 Disposition Clinical Impression: Abdominal pain Disposition: ADMITTED IP TO THIS HOSP Condition: Stable Is patient prescribed a controlled substance at d/c from ED?: No Time of Disposition: 01:05 Decision to Admit Reason: Admit from EC Decision Date: 03/23/23 Decision Time: 01:05
[2023-03-22] MEDS ORDERED: MORPHINE SULFATE 4 MG/ML SYRINGE IVP STA (22:42)
--- NOTE | 2023-03-22 23:47 | US ---
EXAM: US Pelvis Transabdominal, Complete CLINICAL HISTORY: ITS.REASON US Reason: left lower quadrant pain TECHNIQUE: Real-time complete transabdominal pelvic ultrasound with image documentation. COMPARISON: No relevant prior studies available. FINDINGS: Uterus/cervix: Endometrial complex measures 1.0 cm, within normal limits for the secretory phase of the menstrual cycle. No myometrial mass. Right ovary: RIGHT ovarian cyst measures 1.8 x 1.7 x 2.0 cm. No follow-up indicated. Normal blood flow. Left ovary: Unremarkable. No mass. Normal blood flow. Free fluid: No free fluid. Bladder: Unremarkable as visualized. Wall is normal thickness for degree of distention. IMPRESSION: RIGHT ovarian cyst measures 1.8 x 1.7 x 2.0 cm. No follow-up indicated. Normal blood flow.
[2023-03-23] MEDS ORDERED: MORPHINE SULFATE 4 MG/ML SYRINGE IVP STA (00:10)
[2023-03-23] MEDS ORDERED: ALPRAZolam 1 MG TAB PO STA (00:30)
[2023-03-23] MEDS ORDERED: PROPRANOLOL 10 MG TAB PO STA (00:30)
[2023-03-23] MEDS ORDERED: NALOXONE 0.4 MG/ML 1 ML VIAL IV PRN (01:06)
[2023-03-23] MEDS ORDERED: MORPHINE SULFATE 4 MG/ML SYRINGE IV PRN (01:12)
[2023-03-23] MEDS: SODIUM CHLORIDE 0.9% 1,000 ML IV SCH ×3 (01:50→17:41)
[2023-03-23] MEDS: KETOROLAC 15 MG/ML 1 ML VIAL IVP PRN ×2 (04:33→17:41)
[2023-03-23] MEDS ORDERED: ALBUTEROL NEBULIZED 2.5 MG/3 ML INHALATION PRN (06:20)
[2023-03-23] MEDS ORDERED: DICYCLOMINE 10 MG CAP PO PRN (06:20)
--- NOTE | 2023-03-23 06:20 | P.HPIM ---
History of Present Illness H&P Date: 03/23/23 Chief Complaint: Abdominal pain 28-year-old female with Graves' disease, mitral valve prolapse Patient was transferred from [facility] to our facility for further evaluation and GI evaluation. She presented there complaining of severe left lower quadrant abdominal pain that been going on for about 3 weeks which has been worsening gradually. Last Monday patient had to undergo laparoscopic surgery to rule out endometriosis which was unremarkable. Today she went initially to [facility] in [place] for evaluation where abdominal ultrasound revealed no blood flow to one of the ovaries, CT scan of the abdomen was unremarkable for which patient was transferred to our facility for further care and evaluation by her regular director of student affairs. Patient denies any vaginal discharge or bleeding denies any suspicion of . Patient denies any diarrhea however she does report some constipation last bowel movement was yesterday. Denies any GI bleeding however does report couple episodes of black bowel movements. She denies any fevers or chills denies any nausea vomiting however she does report sometimes the pain gets so severe makes her feel nauseous and starts retching. Patient was scheduled to have a colonoscopy done end of March. In the ED she was found to be very nauseated unable to tolerate p.o. intake due to severe pain and nausea for which she was kept in the hospital for further evaluation review of systems Pertinent positives as noted in HPI. All other systems were reviewed and are negative on exam Constitutional: No acute distress, conversant, pleasant Eyes: Anicteric sclerae, moist conjunctiva, Pupils equal round reactive to light ENMT: NC/AT Oropharynx clear, no erythema, or exudates Neck: Supple, no masses, or JVD No carotid bruits No thyromegaly Lungs: Clear to auscultation Clear to percussion Normal respiratory effort, no accessory muscle use Cardiovascular: Heart regular in rate and rhythm, No murmurs, gallops, or rubs No peripheral edema Abdominal: Soft Tender to palpation over the left lower quadrant with positive rebound tenderness voluntary guarding no rigidity Abdomen moving with respiration Normoactive bowel sounds No hepatomegaly, No splenomegaly No palpable mass No abdominal wall hernia noted surgical wounds from laparoscopic procedure looks unremarkable Extremities: No digital cyanosis No clubbing Pedal pulses intact and symmetrical Radial pulses intact and symmetrical No calf tenderness Psychiatric: Alert and oriented to person, place and time Appropriate affect fair judgement Neuro Muscles Strength 5/5 in all 4 extremities Sensation to light touch grossly present throughout Cranial nerves II-XII grossly intact Lymphatics: no palpable cervical or supraclavicular lymph nodes 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 shield operator History of Any Multi-Drug Resistant Organisms: None Reported Past Surgical History: Appendectomy, Section Additional Past Surgical History / Comment(s): thyroidectomy 09/2017, Laparoscopic exam w/ cautery endometriosis 2012 Past Anesthesia/Blood Transfusion Reactions: No Reported Reaction Past Psychological History: Anxiety, Depression Smoking Status: Never smoker Past Alcohol Use History: Occasional, Rare Past Drug Use History: None Reported - Past Family History Mother Family Medical History: Asthma Father Family Medical History: Coronary Artery Disease (CAD), CVA/TIA Brother(s) Family Medical History: Asthma Medications and Allergies Home Medications Medication Instructions Recorded Confirmed Type Albuterol Nebulized [Ventolin 2.5 mg INHALATION RT-QID PRN 05/18/22 03/10/23 History Nebulized] Dicyclomine [Bentyl] 10 mg PO TID PRN 05/18/22 03/14/23 History Levothyroxine Sodium [Synthroid] 137 mcg PO DAILY 05/18/22 03/10/23 History Albuterol Sulfate [Albuterol 1 - 2 puff PO RT-Q4H PRN 06/22/22 03/10/23 History Sulfate Hfa] HYDROcodone/APAP 7.5-325MG [[place] 1 tab PO Q6HR PRN 3 Days #12 tab 12/13/22 03/14/23 Rx 7.5-325] Ibuprofen [Motrin] 600 mg PO Q8HR PRN #20 tab 12/13/22 03/10/23 Rx Ondansetron Odt [Zofran Odt] 4 mg PO Q8HR PRN #10 tab 12/13/22 03/14/23 Rx Ketorolac [Toradol] 10 mg PO Q6HR PRN #12 tab 03/06/23 03/14/23 Rx ALPRAZolam [Xanax] 1 mg PO BID PRN 03/10/23 03/14/23 History Cholecalciferol (Vitamin D3) 1 tab PO DAILY 03/10/23 03/10/23 History [Vitamin D3 (125 MCG = 5,000 IU)] Desvenlafaxine [Pristiq ER] 100 mg PO QAM 03/10/23 03/10/23 History Montelukast [Singulair] 10 mg PO QAM 03/10/23 03/10/23 History Propranolol [Inderal] 10 mg PO TID 03/10/23 03/14/23 History predniSONE 5 mg PO BID 03/10/23 03/10/23 History Allergies Allergy/AdvReac Type Severity Reaction Status Date / Time amoxicillin Allergy Rash/Hives Verified 03/14/23 08:46 nickel Allergy Rash/Hives Verified 03/14/23 08:46 sulfamethoxazole Allergy Rash/Hives Verified 03/14/23 08:46 [From ] trimethoprim [From ] Allergy Rash/Hives Verified 03/14/23 08:46 codeine AdvReac Unknown Verified 03/14/23 08:46 corn AdvReac Diarrhea Verified 03/14/23 08:46 Physical Exam Vitals: Vital Signs Temp Pulse Resp BP Pulse Ox 03/22/23 21:26 98.2 F 93 18 138/93 99 Intake and Output 03/22/23 03/22/23 03/23/23 14:59 22:59 06:59 Other: Weight 68.039 kg Assessment and Plan Assessment: 28-year-old female with Graves' disease coming in for intractable nausea and left lower quadrant abdominal pain I discussed case with ED doctor and accepted the admission for intractable pain for IV fluid hydration and IV pain control with anticipated length of stay less than 2 midnights Intractable left lower quadrant abdominal pain Imaging done at different facility CT of the abdomen was reported to be unremarkable Initial ultrasound done at the other facility was suspicious for decreased blood flow to the left ovary however repeat pelvic ultrasound in our facilities shows normal blood flow to both ovaries Symptomatic control of nausea with Zofran IV push as needed 4 mg every 8 hours Pain control with opiates IV push morphine 4 mg every 2 hours as needed IV fluid hydration with normal saline Check CBC CMP lactic acid General surgery consultation INSPECTOR PACKER consultation patient has history of endometriosis she had normal laparoscopic procedure done 2 days ago Full code DVT prophylaxis mechanical
[2023-03-23] MEDS ORDERED: ONDANSETRON 4 MG/2 ML VIAL IVP PRN (06:23)
[2023-03-23] MEDS: MORPHINE SULFATE 4 MG/ML SYRINGE IV PRN ×3 (06:37→13:28)
[2023-03-23] MEDS: LEVOTHYROXINE 137 MCG TAB PO SCH (08:30)
[2023-03-23] MEDS: MONTELUKAST 10 MG TAB PO SCH ×2 (08:30→08:31)
[2023-03-23 09:19] LABS: Basophils # (A) 0.03 X 10*3/uL (0.00-0.10); Basophils % (A) 0.5 %; Eosinophils # (A) 0.13 X 10*3/uL (0.04-0.35); Eosinophils % (A) 2.2 %; HCT 39.1 % (37.2-46.3); Lymphocytes % (A) 49.9 %; MCH 32.2 pg (27.0-32.0); MCHC 33.2 g/dL (32.0-37.0); MCV 96.8 FL (80.0-97.0); Mean Platelet Volume 9.1 FL (9.5-12.2); Monocytes % (A) 8.3 %; NRBC Per 100 WBC 0 X 10*3/uL (0.00-0.01); Neutrophils # (A) 2.34 X 10*3/uL (1.80-7.70); Neutrophils % (A) 38.9 %; Platelet Count 251 X 10*3/uL (140-440); RBC 4.04 X 10*6/uL (4.10-5.20); RDW 11.9 % (11.5-14.5); WBC 6.01 X 10*3/uL (4.50-10.00)
[2023-03-23] MEDS ORDERED: ALPRAZolam 1 MG TAB PO PRN (09:42)
[2023-03-23] MEDS ORDERED: ALBUTEROL HFA INHALER INHALATION PRN (09:42)
[2023-03-23] MEDS: HYDROmorphone 1 MG/ML 1 ML SYRINGE IVP PRN ×3 (09:43→21:37)
[2023-03-23] MEDS: DESVENLAFAXINE SUCCINATE 50 MG TAB.ER.24H PO SCH (10:24)
[2023-03-23 11:05] LABS: African American GFR (CKD) >90 (>60 ml/min/1.73 sqM); Anion Gap 6 mmol/L; Blood Urea Nitrogen 11 mg/dL (7-17); Calcium 8.5 mg/dL (8.4-10.2); Carbon Dioxide 26 mmol/L (22-30); Chloride 107 mmol/L (98-107); Glucose 97 mg/dL (74-99); Non-African American GFR(CKD) >90 (>60 ml/min/1.73 sqM); Potassium 4.1 mmol/L (3.5-5.1); Sodium 139 mmol/L (137-145)
--- NOTE | 2023-03-23 11:37 | P.GSCN ---
History of Present Illness Consult date: 03/23/23 History of present illness: CHIEF COMPLAINT: Abdominal pain HISTORY OF PRESENT ILLNESS: This is a 28-year-old female who is a transfer from [facility]. She has been having left lower quadrant abdominal pain for about 3 weeks. The pain has continued to worsen. Initially it was intermittent and now its mostly continuous she describes the pain as sharp and stabbing and rates it about a 9 out of 10. She was having vomiting due to the pain. Last week she did have 2 black stools but then that resolved. Otherwise she has had normal bowel movements. Denies any diarrhea. She does have a history of colitis and reports that this feels different. She had a laparoscopy on March 14 of this year other surgical history does include appendectomy, and laparoscopy for endometriosis. She did have a CT scan completed at [facility] which was negative. Ultrasound had reported arterial flow to the left ovary was not visualized. Patient did have a pelvic ultrasound completed here that did show normal blood flow but did report a right ovarian cyst. Patient reports she was scheduled to have a colonoscopy towards the end of March with her GI physician but did not feel she could wait that long. Patient reports on the last laparoscopy this month she was told she did have some scar tissue. Patient also reports that the pain is worse with walking. Patient is able to tolerate regular diet. PAST MEDICAL HISTORY: Asthma, Mitral Valve Prolapse (MVP), Thyroid Disorder, colitis, endometriosis, Graves' disease PAST SURGICAL HISTORY: Appendectomy, , thyroidectomy, laparoscopy with cautery of endometriosis in 2012 MEDICATIONS: See below ALLERGIES: See below SOCIAL HISTORY: No illicit drug use. REVIEW OF SYSTEMS: CONSTITUTIONAL: Denies fever or chills. HEENT: Denies blurred vision, vision changes, or eye pain. Denies hemoptysis CARDIOVASCULAR: Denies chest pain or pressure. RESPIRATORY: No shortness of breath. GASTROINTESTINAL: See HPI for pertinent findings HEMATOLOGIC: Denies bleeding disorders. GENITOURINARY: Denies any blood in urine or increased urinary frequency. SKIN: Denies pruitis. Denies rash. PHYSICAL EXAM: VITAL SIGNS: Reviewed GENERAL: Well-developed in no acute distress. ABDOMEN: Soft. Nondistended. Tenderness to palpation left lower quadrant NEUROLOGIC: Alert and oriented. Cranial nerves II through XII grossly intact. LABORATORY DATA: WBC 6.01 Hgb 13.0 platelets 251 Sodium 139 potassium 4.1 creatinine 0.57 Lactic acid 1.1 Magnesium 20 IMAGING: Pelvic ultrasound right ovarian cyst measuring 1.8 x 1.7 x 2.0 cm no follow-up indicated. Normal blood flow. ASSESSMENT: 1. Left lower quadrant abdominal pain PLAN: -Further recommendations forthcoming per surgeon -Make NPO until seen by surgeon -Dilaudid 1 mg IV every 3 hours PRN added for pain control -Continue IV fluids -Continue supportive care Physician Holiday Detector Operator note has been reviewed by physician. Signing provider agrees with the documented findings, assessment, and plan of care. I have personally seen and examined the patient, reviewed the METALLURGICAL ENGINEERING TECHNICIAN /PAs history, exam and MDM and agree with the assessment and plan as written. Based on total visit time, I have performed more than 50% of the visit. As above: Patient with left lower quadrant pain. Worse in the last 24 hours. This is the reason patient went for laparoscopy 9 days ago or so. CAT scan from outside institution reviewed. No obvious pathology to explain her discomfort. Small cyst suspected left ovary and right ovary. Will discuss further with gynecology. 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 paving crew foreman History of Any Multi-Drug Resistant Organisms: None Reported Past Surgical History: Appendectomy, Section Additional Past Surgical History / Comment(s): thyroidectomy 09/2017, Laparoscopic exam w/ cautery endometriosis 2012 Past Anesthesia/Blood Transfusion Reactions: No Reported Reaction Past Psychological History: Anxiety, Depression Smoking Status: Never smoker Past Alcohol Use History: Occasional, Rare Past Drug Use History: None Reported - Past Family History Mother Family Medical History: Asthma Father Family Medical History: Coronary Artery Disease (CAD), CVA/TIA Brother(s) Family Medical History: Asthma Medications and Allergies Home Medications Medication Instructions Recorded Confirmed Type Albuterol Nebulized [Ventolin 2.5 mg INHALATION RT-QID PRN 05/18/22 03/23/23 History Nebulized] Dicyclomine [Bentyl] 10 mg PO TID PRN 05/18/22 03/23/23 History Levothyroxine Sodium [Synthroid] 137 mcg PO DAILY 05/18/22 03/23/23 History Albuterol Sulfate [Albuterol 1 - 2 puff PO RT-Q4H PRN 06/22/22 03/23/23 History Sulfate Hfa] Ibuprofen [Motrin] 600 mg PO Q8HR PRN #20 tab 12/13/22 03/23/23 Rx Ondansetron Odt [Zofran Odt] 4 mg PO Q8HR PRN #10 tab 12/13/22 03/23/23 Rx Ketorolac [Toradol] 10 mg PO Q6HR PRN #12 tab 03/06/23 03/23/23 Rx ALPRAZolam [Xanax] 1 mg PO BID PRN 03/10/23 03/23/23 History Cholecalciferol (Vitamin D3) 1 tab PO DAILY 03/10/23 03/23/23 History [Vitamin D3 (125 MCG = 5,000 IU)] Desvenlafaxine [Pristiq ER] 100 mg PO QAM 03/10/23 03/23/23 History Montelukast [Singulair] 10 mg PO QAM 03/10/23 03/23/23 History Propranolol [Inderal] 10 mg PO TID 03/10/23 03/23/23 History predniSONE 5 mg PO BID 03/10/23 03/23/23 History HYDROcodone/APAP 5-325MG [[place] 2 tab PO Q8H PRN 03/23/23 03/23/23 History 5-325] Allergies Allergy/AdvReac Type Severity Reaction Status Date / Time amoxicillin Allergy Rash/Hives Verified 03/23/23 09:10 nickel Allergy Rash/Hives Verified 03/23/23 09:10 sulfamethoxazole Allergy Rash/Hives Verified 03/23/23 09:10 [From ] trimethoprim [From ] Allergy Rash/Hives Verified 03/23/23 09:10 corn AdvReac Diarrhea Verified 03/23/23 09:10 Surgical - Exam Vital Signs Temp Pulse Resp BP Pulse Ox 98.2 F 93 18 138/93 99 03/22/23 21:26 03/22/23 21:26 03/22/23 21:26 03/22/23 21:26 03/22/23 21:26 Results - Labs 03/23/23 06:25 03/23/23 10:03 Abnormal Lab Results - Last 24 Hours (Table) 03/23/23 Range/Units 06:25 RBC 4.04 L (4.10-5.20) X 10*6/uL MCH 32.2 H (27.0-32.0) pg MPV 9.1 L (9.5-12.2) FL
[2023-03-23 11:38] LABS: ALT 64 U/L (8-44); AST 34 U/L (13-35); Albumin/Globulin Ratio 1.82 Ratio (1.60-3.17); Alkaline Phosphatase 53 U/L (41-126); BUN/Creat Ratio 17.17 Ratio (12.00-20.00); Blood Urea Nitrogen 10.3 mg/dL (9.0-27.0); Calcium 8.4 mg/dL (8.7-10.3); Carbon Dioxide 25.1 mmol/L (21.6-31.8); Chloride 106 mmol/L (96-109); Globulin 2.2 g/dL (1.6-3.3); Glucose 91 mg/dL (70-110); Potassium 4.2 mmol/L (3.5-5.5); Sodium 140 mmol/L (135-145); Total Bilirubin 0.2 mg/dL (0.3-1.2); Total Protein 6.2 g/dL (6.2-8.2)
[2023-03-23 11:49] LABS: HCG,Qualitative Serum Not Detected
[2023-03-23] MEDS ORDERED: PROCHLORPERAZINE INJ 10 MG/2 ML VIAL IVP PRN (13:27)
[2023-03-23] MEDS: HYDROcodone/APAP 5-325MG 1 EACH TAB PO PRN (14:11)
--- NOTE | 2023-03-23 16:36 | P.PN ---
Subjective Progress Note Date: 03/23/23 Hospital course: Patient is a very pleasant 28-year-old female with a past medical history of Graves' disease, asthma, colitis and mitral valve prolapse. She presented to the emergency department as a transfer from [facility] overnight with a chief complaint of abdominal pain. Patient reports she initially presented to [place] with a chief complaint of severe left lower quadrant abdominal pain initially beginning 3 weeks ago and progressively worsening. She underwent evaluation at [facility] and an abdominal ultrasound revealed no blood flow to one of her ovaries, CT scan of abdomen was also completed which was reportedly unremarkable. She was transferred to our facility for evaluation and evaluation by director of physical security and claim inspector. Transabdominal pelvic ultrasound done repeated upon arrival to our facility. Ultrasound showing right ovarian cyst measuring 1.8 x 1.7 x 2.0 cm and showing normal blood flow to bilateral ovaries with no free fluid. Patient was admitted under our services. Physical exam: Patient seen and fully evaluated at bedside, reports pain currently managed with current pain medication regimen. She denies any further episodes of nausea. Reports nausea and vomiting only come on when pain is severe. Vital signs reviewed and stable. General: Nontoxic, no distress and appears stated age. Derm: Skin warm and dry, normal coloration for ethnicity. Head: Atraumatic, normocephalic and symmetric. Eyes: EOMs intact, no lid lag, and anicteric sclera Mouth: no lip lesions, mucus membranes moist Cardiovascular: regular rate and rhythm with normal S1S2, no murmur, positive posterior tibial pulses bilaterally, and cap refill < 2 seconds. Lungs: Respirations even, regular, and unlabored on room air. Lungs CTA bilaterally, no rhonchi, no rales, no wheezing, and no accessory muscle usage. Abdominal: soft, tenderness reported to palpation in left upper and left lower quadrant worse in the left lower. Ext: ROM intact. No gross muscle atrophy, no edema, no contractures Neuro: Speech clear, face symmetrical and CN II-XII grossly intact with no noted focal neuro deficits Psych: Alert and oriented to person, place, time, and situation. Appropriate and pleasant affect. Assessment and Plan of Care: Intractable left lower quadrant abdominal pain -Imaging done at different facility CT of the abdomen was reported to be unremarkable -Initial ultrasound done at the other facility was suspicious for decreased blood flow to the left ovary however repeat pelvic ultrasound in our facilities shows normal blood flow to both ovaries and a 1.8 x 1.7 x 2.0 cm right ovarian cyst. -Symptomatic control of nausea with Zofran IV push as needed 4 mg every 8 hours and for breakthrough uncontrolled nausea Compazine 10 mg IVP every 6 hours as needed. -Pain control with [place] 5/325 mg tablets every 8 hours for moderate pain and Dilaudid 1 mg every 3 hours as needed for severe pain. -IV fluid hydration with normal saline at 130 cc/hr -Order placed for blood hCG and upon review it was negative for . -General surgery consulted, appreciate recommendations. -HAND TUBE BENDER consultation placed, patient has history of endometriosis she had normal laparoscopic procedure done 2 days ago. Code Status: Full code DVT prophylaxis: Mechanical Anticipated discharge date: 24 to [address]: Home Patient was seen independently by Nurse Pracitioner. This document was prepared using [employer] dictation software. Please allow for errors in fine chemicals operator, while rare they do occur. Richard Post NP rendered care for this patient independently, reviewed the findings and plan as documented in the note above. I did not physically speak with or examine the patient on this date. Objective - Vital Signs Vital signs: Vital Signs Temp 98.2 F 03/23/23 09:00 Pulse 105 H 03/23/23 09:00 Resp 18 03/23/23 09:00 BP 129/88 03/23/23 09:00 Pulse Ox 97 03/23/23 09:00 FiO2 Intake & Output 03/22/23 03/23/23 03/23/23 18:59 06:59 18:59 Weight 68.039 kg - Labs CBC & Chem 7: 03/24/23 07:55 03/24/23 07:55 Labs: Abnormal Lab Results - Last 24 Hours (Table) 03/23/23 Range/Units 06:25 RBC 4.04 L (4.10-5.20) X 10*6/uL MCH 32.2 H (27.0-32.0) pg MPV 9.1 L (9.5-12.2) FL
[2023-03-23] MEDS: PROPRANOLOL 10 MG TAB PO SCH ×2 (17:41→21:33)
[2023-03-23 17:45] LABS: Glucose,Whole Blood 87 mg/dL (70-110)
[2023-03-24] MEDS: HYDROmorphone 1 MG/ML 1 ML SYRINGE IVP PRN (01:39)
[2023-03-24] MEDS: SODIUM CHLORIDE 0.9% 1,000 ML IV SCH (01:54)
[2023-03-24] MEDS: HYDROcodone/APAP 5-325MG 1 EACH TAB PO PRN (05:57)
[2023-03-24] MEDS: LEVOTHYROXINE 137 MCG TAB PO SCH (05:57)
[2023-03-24 08:14] VITALS: BP 114/77; PULSE 97; RESP 15; TEMP 98.3
[2023-03-24] MEDS: DESVENLAFAXINE SUCCINATE 50 MG TAB.ER.24H PO SCH (08:26)
[2023-03-24] MEDS: PROPRANOLOL 10 MG TAB PO SCH (08:27)
[2023-03-24] MEDS: KETOROLAC 15 MG/ML 1 ML VIAL IVP PRN (08:29)
[2023-03-24 08:55] LABS: Basophils % (A) 0 %; Eosinophils # (A) 0.2 k/uL (0-0.7); Eosinophils % (A) 2 %; Lymphocytes % (A) 26 %; MCH 32.8 pg (25.0-35.0); MCHC 34.1 g/dL (31.0-37.0); MCV 96.3 fL (80.0-100.0); Mean Platelet Volume 7.2; Monocytes # (A) 0.4 k/uL (0-1.0); Monocytes % (A) 5 %; Neutrophils # (A) 4.8 k/uL (1.3-7.7); Neutrophils % (A) 64 %; Platelet Count 248 k/uL (150-450); RBC 4.26 m/uL (3.80-5.40); RDW 11.8 % (11.5-15.5); WBC 7.4 k/uL (3.8-10.6)
[2023-03-24] MEDS ORDERED: DESVENLAFAXINE SUCCINATE 50 MG TAB.ER.24H PO SCH (09:00)
[2023-03-24] MEDS ORDERED: CHOLECALCIFEROL 125 MCG (5000 IU) TABLET PO SCH (09:00)
[2023-03-24 09:20] LABS: African American GFR (CKD) >90 (>60 ml/min/1.73 sqM); Anion Gap 9 mmol/L; Blood Urea Nitrogen 12 mg/dL (7-17); Carbon Dioxide 21 mmol/L (22-30); Chloride 106 mmol/L (98-107); Glucose 100 mg/dL (74-99); Non-African American GFR(CKD) >90 (>60 ml/min/1.73 sqM); Potassium 4.2 mmol/L (3.5-5.1); Sodium 136 mmol/L (137-145)
--- NOTE | 2023-03-24 10:25 | P.OBCN ---
History of Present Illness Consult date: 03/24/23 Reason for consult: pelvic pain Chief complaint: LLQ Pain History of present illness: This is a 28 yo female that was transferred to [facility] from [facility]. She states she started having sharp extreme left lower quadrant pain on and her primary care had recommended that she be seen in the emergency room during an acute episode of pain. Patient states when she presented they did a CAT scan which was negative, and transferred to [facility] for pain control. Patient was taken to the operating room on by myself for diagnostic laparoscopy secondary to concerns for endometriosis. Patient states that she had a diagnosis of endometriosis years ago after her laparoscopy with Dr. Lancaster. Patient was concerned the pain was related to endometriosis. Diagnostic laparoscopy was completed without complication with benign findings. The uterus was noted to be freely mobile both ovaries were noted to be mobile no endometriosis noted within the pelvis. A small filmy adhesion was appreciated on the anterior uterus to the anterior abdominal wall paper thin. Patient does state she has had 2 episodes of black tarry stools but no pain with bowel movements. She denies urinary concerns. She states she did follow-up with GI after the laparoscopy was completed and they felt her pain was at the site of the sigmoid colon and had scheduled colonoscopy to be completed on 04/24. She states she does have a history of irritable bowel/colitis but that pain is more crampy and she notes diarrhea symptoms around that time she states this is "different" She denies nausea or vomiting. She is currently nothing by mouth. COMMUNITY LIFE DIRECTOR history #1 section #2 elective termination of Review of Systems Constitutional: Reports fatigue, Denies chills, Denies fever Ears, nose, mouth and throat: Reports headache Cardiovascular: Denies edema Respiratory: Denies dyspnea Gastrointestinal: Denies diarrhea, Denies nausea, Denies vomiting 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 deployment manager History of Any Multi-Drug Resistant Organisms: None Reported Past Surgical History: Appendectomy, Section Additional Past Surgical History / Comment(s): thyroidectomy 09/2017, Laparoscopic exam w/ cautery endometriosis 2012 Past Anesthesia/Blood Transfusion Reactions: No Reported Reaction Past Psychological History: Anxiety, Depression Additional Psychological History / Comment(s): not taking any meds at this time was on celexa Smoking Status: Never smoker Past Alcohol Use History: Occasional, Rare Past Drug Use History: None Reported - Past Family History Mother Family Medical History: Asthma Father Family Medical History: Coronary Artery Disease (CAD), CVA/TIA Brother(s) Family Medical History: Asthma Medications and Allergies Home Medications Medication Instructions Recorded Confirmed Type Albuterol Nebulized [Ventolin 2.5 mg INHALATION RT-QID PRN 05/18/22 03/23/23 History Nebulized] Dicyclomine [Bentyl] 10 mg PO TID PRN 05/18/22 03/23/23 History Levothyroxine Sodium [Synthroid] 137 mcg PO DAILY 05/18/22 03/23/23 History Albuterol Sulfate [Albuterol 1 - 2 puff PO RT-Q4H PRN 06/22/22 03/23/23 History Sulfate Hfa] Ibuprofen [Motrin] 600 mg PO Q8HR PRN #20 tab 12/13/22 03/23/23 Rx Ondansetron Odt [Zofran Odt] 4 mg PO Q8HR PRN #10 tab 12/13/22 03/23/23 Rx Ketorolac [Toradol] 10 mg PO Q6HR PRN #12 tab 03/06/23 03/23/23 Rx ALPRAZolam [Xanax] 1 mg PO BID PRN 03/10/23 03/23/23 History Cholecalciferol (Vitamin D3) 1 tab PO DAILY 03/10/23 03/23/23 History [Vitamin D3 (125 MCG = 5,000 IU)] Desvenlafaxine [Pristiq ER] 100 mg PO QAM 03/10/23 03/23/23 History Montelukast [Singulair] 10 mg PO QAM 03/10/23 03/23/23 History Propranolol [Inderal] 10 mg PO TID 03/10/23 03/23/23 History predniSONE 5 mg PO BID 03/10/23 03/23/23 History HYDROcodone/APAP 5-325MG [[place] 2 tab PO Q8H PRN 03/23/23 03/23/23 History 5-325] Allergies Allergy/AdvReac Type Severity Reaction Status Date / Time amoxicillin Allergy Rash/Hives Verified 03/23/23 09:10 nickel Allergy Rash/Hives Verified 03/23/23 09:10 sulfamethoxazole Allergy Rash/Hives Verified 03/23/23 09:10 [From ] trimethoprim [From ] Allergy Rash/Hives Verified 03/23/23 09:10 corn AdvReac Diarrhea Verified 03/23/23 09:10 Exam Osteopathic Statement: *. No significant issues noted on an osteopathic structural exam other than those noted in the History and Physical/Consult. Vital Signs Temp Pulse Pulse Pulse Resp BP BP 03/24/23 07:00 98.3 F 97 15 114/77 03/24/23 02:18 95 93 16 03/24/23 01:24 98.6 F 93 16 124/89 03/23/23 20:56 98.6 F 107 H 16 142/84 03/23/23 20:30 99 16 127/91 03/23/23 16:51 97.9 F 95 17 03/23/23 14:00 103 H 18 147/102 03/23/23 11:58 98.1 F 101 H 18 140/95 BP Pulse Ox 03/24/23 07:00 03/24/23 02:18 03/24/23 01:24 97 03/23/23 20:56 97 03/23/23 20:30 96 03/23/23 16:51 146/86 03/23/23 14:00 95 03/23/23 11:58 96 Intake and Output 03/23/23 03/24/23 03/24/23 22:59 06:59 14:59 Other: Voiding Method Toilet Toilet # Voids 1 2 Weight 68.039 kg Patient is sleeping upon entry to the room, patient rouses easily, patient appears comfortable, breathing appears unlabored Results Result Diagrams: 03/24/23 07:55 03/24/23 07:55 Abnormal Lab Results - Last 24 Hours (Table) 03/23/23 03/24/23 Range/Units 06:25 07:55 Sodium 136 L (137-145) mmol/L Carbon Dioxide 21 L (22-30) mmol/L Glucose 100 H (74-99) mg/dL Calcium 8.4 L (8.7-10.3) mg/dL Total Bilirubin 0.2 L (0.3-1.2) mg/dL ALT 64 H (8-44) U/L Assessment and Plan (1) Abdominal pain Current Visit: Yes Status: Acute Code(s): R10.9 - UNSPECIFIED ABDOMINAL PAIN SNOMED Code(s): 33715179 Plan: 28-year-old female with complaints of left lower quadrant pain. Findings of diagnostic laparoscopy were discussed with patient in detail. I do not believe this is MEMBERSHIP ASSISTANT etiology of pain. Patient agrees and states understanding. I will follow along and any concerns that I can be of help with please reach out Thank you
--- NOTE | 2023-03-24 10:59 | P.PN ---
Subjective Progress Note Date: 03/24/23 CHIEF COMPLAINT: Abdominal pain HISTORY OF PRESENT ILLNESS: Patient reports that her left lower quadrant abdominal pain has shown improvement. She is feeling better. Denies any nausea or vomiting. She does complain of a headache. She feels that her pain can be managed at home until she follows up with her GI service. Afebrile. WBC 7.4 Hgb 14.0 platelets 248 sodium 136 potassium 4.2 creatinine 0.53 PHYSICAL EXAM: VITAL SIGNS: Reviewed. GENERAL: Well-developed in no acute distress. ABDOMEN: Soft. Nondistended. NEUROLOGIC: Alert and oriented. Cranial nerves II through XII grossly intact. ASSESSMENT: 1. Left lower quadrant abdominal pain PLAN: -Patient tolerating diet. Her symptoms have shown improving. She is stable for discharge from surgical standpoint. Agree with follow-up with her Information Technology Account Manager outpatient Physician Manager Library note has been reviewed by physician. Signing provider agrees with the documented findings, assessment, and plan of care. I have personally seen and examined the patient, reviewed the CHANGE DIRECTOR /PAs history, exam and MDM and agree with the assessment and plan as written. Based on total visit time, I have performed more than 50% of the visit. As above: Patient is doing better today. Pain has improved. She would like to go home. Stable for discharge. Follow-up with VEGETABLE CUTTER and GI postdischarge. Objective - Vital Signs Vital signs: Vital Signs Temp 98.3 F 03/24/23 07:00 Pulse 97 03/24/23 07:00 Resp 15 03/24/23 07:00 BP 114/77 03/24/23 07:00 Pulse Ox 97 03/24/23 01:24 FiO2 Intake & Output 03/23/23 03/24/23 03/24/23 18:59 06:59 18:59 Weight 68.039 kg Other: Voiding Method Toilet Toilet # Voids 2 - Labs CBC & Chem 7: 03/24/23 07:55 03/24/23 07:55 Labs: Abnormal Lab Results - Last 24 Hours (Table) 03/23/23 03/24/23 Range/Units 06:25 07:55 Sodium 136 L (137-145) mmol/L Carbon Dioxide 21 L (22-30) mmol/L Glucose 100 H (74-99) mg/dL Calcium 8.4 L (8.7-10.3) mg/dL Total Bilirubin 0.2 L (0.3-1.2) mg/dL ALT 64 H (8-44) U/L
[2023-03-24] MEDS ORDERED: IBUPROFEN 600 MG TAB PO SCH (11:00)
--- NOTE | 2023-03-24 11:04 | P.DS ---
Providers Date of admission: 03/23/23 01:18 Expected date of discharge: 03/24/23 Attending physician: Alvarez Alanis MD Consults: 03/23/23 01:12 Consult Physician Urgent Consulting Provider: Nohemi Morris Consult Reason/Comments: intractable llq abd pain, status post laparoscopy Do you want consulting provider notified?: Yes 03/23/23 08:27 Consult Physician Routine Consulting Provider: Jah Titus Consult Reason/Comments: LLQ abdominal pain Do you want consulting provider notified?: Yes Primary care physician: [facility] Course: Discharge Diagnosis: Intractable left lower quadrant abdominal pain Ovarian cyst Endometriosis Graves' disease Hospital course: Patient is a very pleasant 28-year-old female with a past medical history of Graves' disease, asthma, colitis and mitral valve prolapse. She presented to the emergency department on 03/22/2023 as a transfer from [facility] with a chief complaint of abdominal pain. Patient reported she initially presented to [place] with a chief complaint of severe left lower quadrant abdominal pain initially beginning 3 weeks ago and progressively worsening. She underwent evaluation at [facility] and an abdominal ultrasound was reported to reveal no blood flow to one of her ovaries, CT scan of abdomen was also completed which was reportedly unremarkable. She was transferred to our facility for evaluation and evaluation by senior qa automation engineer and grading clerk. Transabdominal pelvic ultrasound repeated upon arrival to our facility. Ultrasound reporting right ovarian cyst measuring 1.8 x 1.7 x 2.0 cm and showing normal blood flow to bilateral ovaries with no free fluid. Patient was admitted under our services with consultation to gynecology and general surgery. Labs were completed and reviewed. CBC, BMP, and magnesium were unremarkable. Serum hCG was negative for . She was evaluated by senior qa automation engineer who cleared patient from gynecological perspective at this time. General surgery evaluated stating patient tolerating diet and symptoms have improved clearing patient from their perspective for discharge recommending that she follow-up outpatient with her grading clerk as previously planned. Medically, patient is stable at this time. She reports near resolution of her previous reported left lower quadrant abdominal pain and denies any further episodes of nausea or vomiting. Labs and vital signs unremarkable. Patient medically stable for discharge at this time. Recommend patient follow-up outpatient with her PCP, grading clerk, and her senior qa automation engineer. Physical exam: Vital signs reviewed and stable. General: Nontoxic, no distress and appears stated age. Derm: Skin warm and dry, normal coloration for ethnicity. Head: Atraumatic, normocephalic and symmetric. Eyes: EOMs intact, no lid lag, and anicteric sclera Mouth: no lip lesions, mucus membranes moist Cardiovascular: regular rate and rhythm with normal S1S2, no murmur, positive posterior tibial pulses bilaterally, and cap refill < 2 seconds. Lungs: Respirations even, regular, and unlabored on room air. Lungs CTA bilaterally, no rhonchi, no rales, no wheezing, and no accessory muscle usage. Abdominal: soft, nontender to palpation. Ext: ROM intact. No gross muscle atrophy, no edema, no contractures Neuro: Speech clear, face symmetrical and CN II-XII grossly intact with no noted focal neuro deficits Psych: Alert and oriented to person, place, time, and situation. Appropriate and pleasant affect. A total of 33 minutes of time were spent preparing this complex discharge summary. Pt was discharged on 03/24/2023 at 11:03 AM. Patient was seen independently by Nurse Practitioner. This document was prepared using [employer] dictation software. Please allow for errors in superintendent police while rare they do occur. Richard Post NP rendered care for this patient independently, reviewed the findings and plan as documented in the note above. I did not physically speak with or examine the patient on this jorge Patient Condition at Discharge: Stable Plan - Discharge Summary Discharge Rx Participant: No New Discharge Prescriptions: Continue Albuterol Nebulized [Ventolin Nebulized] 2.5 mg INHALATION RT-QID PRN PRN Reason: Shortness Of Breath Albuterol Sulfate [Albuterol Sulfate Hfa] 1 - 2 puff PO RT-Q4H PRN PRN Reason: Shortness Of Breath Ibuprofen [Motrin] 600 mg PO Q8HR PRN #20 tab PRN Reason: Pain Ketorolac [Toradol] 10 mg PO Q6HR PRN #12 tab PRN Reason: Pain Desvenlafaxine [Pristiq ER] 100 mg PO QAM predniSONE 5 mg PO BID Cholecalciferol (Vitamin D3) [Vitamin D3 (125 MCG = 5,000 IU)] 1 tab PO DAILY Levothyroxine Sodium [Synthroid] 137 mcg PO DAILY Dicyclomine [Bentyl] 10 mg PO TID PRN PRN Reason: Gi Upset Ondansetron Odt [Zofran ODT] 4 mg PO Q8HR PRN #10 tab PRN Reason: Nausea Montelukast [Singulair] 10 mg PO QAM Propranolol [Inderal] 10 mg PO TID ALPRAZolam [Xanax] 1 mg PO BID PRN PRN Reason: Anxiety HYDROcodone/APAP 5-325MG [Ariel 5-325] 2 tab PO Q8H PRN PRN Reason: Pain Discharge Medication List Albuterol Nebulized [Ventolin Nebulized] 2.5 mg INHALATION RT-QID PRN 05/18/22 [History] Dicyclomine [Bentyl] 10 mg PO TID PRN 05/18/22 [History] Levothyroxine Sodium [Synthroid] 137 mcg PO DAILY 05/18/22 [History] Albuterol Sulfate [Albuterol Sulfate Hfa] 1 - 2 puff PO RT-Q4H PRN 06/22/22 [History] Ibuprofen [Motrin] 600 mg PO Q8HR PRN #20 tab 12/13/22 [Rx] Ondansetron Odt [Zofran ODT] 4 mg PO Q8HR PRN #10 tab 12/13/22 [Rx] Ketorolac [Toradol] 10 mg PO Q6HR PRN #12 tab 03/06/23 [Rx] ALPRAZolam [Xanax] 1 mg PO BID PRN 03/10/23 [History] Cholecalciferol (Vitamin D3) [Vitamin D3 (125 MCG = 5,000 IU)] 1 tab PO DAILY 03/10/23 [History] Desvenlafaxine [Pristiq ER] 100 mg PO QAM 03/10/23 [History] Montelukast [Singulair] 10 mg PO QAM 03/10/23 [History] Propranolol [Inderal] 10 mg PO TID 03/10/23 [History] predniSONE 5 mg PO BID 03/10/23 [History] HYDROcodone/APAP 5-325MG [Ariel 5-325] 2 tab PO Q8H PRN 03/23/23 [History] Follow up Appointment(s)/Referral(s): Jah Titus MD [Medical Doctor] - 1 Week Tiffanie Graham MD [Primary Care Provider] - 1-2 days Nohemi Morris DO [Doctor of Osteopathic Medicine] - 1 Week Activity/Diet/Wound Care/Special Instructions: Activity: As tolerated. Take breaks as needed. Diet: Regular diet Special Instructions: Take all of your medications as directed and remember to keep all of your doctor's appointments and follow-up as needed. Thank you for allowing us to participate in your care, it was truly a pleasure having you for our patient!!! Discharge Disposition: HOME SELF-CARE
--- NOTE | 2023-03-28 19:03 | ED ---
Abdominal Pain HPI - General Chief Complaint: Abdominal Pain Stated Complaint: Abd Pain Time Seen by Provider: 03/22/23 21:28 Source: patient, EMS, RN notes reviewed Mode of arrival: EMS - History of Present Illness Initial Comments: This is a pleasant 28-year-old female who presents to the emergency department complaining of left pelvic pain which radiates into the left abdomen. Patient states that this has been bothering her since March 22 when she presented to [facility] ER. Patient was subsequently transferred here after having a transvaginal ultrasound which showed questionable flow to the left ovary. Patient also had a CAT scan done that day which was apparently unremarkable. Patient ended up seeing both Dr. Rosas and Dr. Titus here at this facility. Apparently states that the patient would need a colonoscopy but this was not left to the patient's thermocouple tester. Patient states she has had continued pain since that day however today the pain became much worse after she had a bowel movement. Describing sharp pain located in the left pelvis which radiates in the left abdomen. Patient did have nausea which she is related to the pain. Patient had essentially regular bowel movement. No bright red blood per rectum. No hematochezia or melena. Patient denying any fever. He is complaining of nausea. No chest pain or shortness of breath. No skin rashes or lesions. No vaginal discharge. Patient does have a history of endometriosis. Patient previously had an appendectomy as well as a diagnostic laparoscopy for endometriosis. Patient states the pain is exacerbated by movement, bumps, palpation. No alleviating factors patient does have [place] 10/325 at home. MD Complaint: abdominal pain - Related Data Home Medications Medication Instructions Recorded Confirmed Albuterol Nebulized [Ventolin 2.5 mg INHALATION RT-QID PRN 05/18/22 03/23/23 Nebulized] Dicyclomine [Bentyl] 10 mg PO TID PRN 05/18/22 03/23/23 Levothyroxine Sodium [Synthroid] 137 mcg PO DAILY 05/18/22 03/23/23 Albuterol Sulfate [Albuterol 1 - 2 puff PO RT-Q4H PRN 06/22/22 03/23/23 Sulfate Hfa] ALPRAZolam [Xanax] 1 mg PO BID PRN 03/10/23 03/23/23 Cholecalciferol (Vitamin D3) 1 tab PO DAILY 03/10/23 03/23/23 [Vitamin D3 (125 MCG = 5,000 IU)] Desvenlafaxine [Pristiq ER] 100 mg PO QAM 03/10/23 03/23/23 Montelukast [Singulair] 10 mg PO QAM 03/10/23 03/23/23 Propranolol [Inderal] 10 mg PO TID 03/10/23 03/23/23 predniSONE 5 mg PO BID 03/10/23 03/23/23 HYDROcodone/APAP 5-325MG [[place] 2 tab PO Q8H PRN 03/23/23 03/23/23 5-325] Previous Rx's Medication Instructions Recorded Ibuprofen [Motrin] 600 mg PO Q8HR PRN #20 tab 12/13/22 Ondansetron Odt [Zofran ODT] 4 mg PO Q8HR PRN #10 tab 12/13/22 Ketorolac [Toradol] 10 mg PO Q6HR PRN #12 tab 03/06/23 Allergies Allergy/AdvReac Type Severity Reaction Status Date / Time amoxicillin Allergy Rash/Hives Verified 03/23/23 09:10 nickel Allergy Rash/Hives Verified 03/23/23 09:10 sulfamethoxazole Allergy Rash/Hives Verified 03/23/23 09:10 [From Septra] trimethoprim [From Octra] Allergy Rash/Hives Verified 03/23/23 09:10 corn AdvReac Diarrhea Verified 03/23/23 09:10 Review of Systems ROS Statement: Those systems with pertinent positive or pertinent negative responses have been documented in the HPI. ROS Other: All systems not noted in ROS Statement are negative. 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 ragman History of Any Multi-Drug Resistant Organisms: None Reported Past Surgical History: Appendectomy, Section Additional Past Surgical History / Comment(s): thyroidectomy 09/2017, Laparoscopic exam w/ cautery endometriosis 2012 Past Anesthesia/Blood Transfusion Reactions: No Reported Reaction Past Psychological History: Anxiety, Depression Additional Psychological History / Comment(s): not taking any meds at this time was on celexa Smoking Status: Never smoker Past Alcohol Use History: Occasional, Rare Past Drug Use History: None Reported - Past Family History Mother Family Medical History: Asthma Father Family Medical History: Coronary Artery Disease (CAD), CVA/TIA Brother(s) Family Medical History: Asthma General Exam General appearance: alert, in distress Head exam: Present: atraumatic, normocephalic, normal inspection Eye exam: Present: normal appearance, PERRL, EOMI. Absent: scleral icterus, conjunctival injection, periorbital swelling ENT exam: Present: normal exam, normal oropharynx, mucous membranes moist, normal external ear exam. Absent: mucous membranes dry Neck exam: Present: normal inspection. Absent: tenderness, meningismus, lymphadenopathy Respiratory exam: Present: normal lung sounds bilaterally. Absent: respiratory distress, wheezes, rales, rhonchi, stridor Cardiovascular Exam: Present: regular rate, normal rhythm, normal heart sounds. Absent: systolic murmur, diastolic murmur, rubs, gallop, clicks GI/Abdominal exam: Present: soft, tenderness, guarding, rebound, rigid, normal bowel sounds, other (Tenderness to palpation in the left pelvis and left abdominal area with guarding. No definitive rebound. Some percussion tenderness.). Absent: distended Extremities exam: Present: normal inspection, full ROM, normal capillary refill. Absent: tenderness, pedal edema, joint swelling, calf tenderness Back exam: Present: normal inspection Neurological exam: Present: alert, oriented X3, CN II-XII intact Psychiatric exam: Present: normal affect, normal mood Skin exam: Present: warm, dry, intact, normal color. Absent: rash Course Vital Signs 03/22/23 03/23/23 03/23/23 21:26 09:00 11:58 Temperature 98.2 F 98.2 F 98.1 F Pulse Rate 93 105 H 101 H Pulse Rate [ Nuclear Powerplant Supervisor ] Respiratory 18 18 18 Rate Blood Pressure 138/93 129/88 140/95 Blood Pressure [Right Arm] O2 Sat by Pulse 99 97 96 Oximetry 03/23/23 03/23/23 03/23/23 14:00 16:51 20:30 Temperature 97.9 F Pulse Rate 103 H 99 Pulse Rate [ 95 Nuclear Powerplant Supervisor ] Respiratory 18 17 16 Rate Blood Pressure 147/102 127/91 Blood Pressure 146/86 [Right Arm] O2 Sat by Pulse 95 96 Oximetry Medical Decision Making - Medical Decision Making Was pt. sent in by a medical professional or institution? @ -[by , KESHA, POLISHER HAND, urgent care, hospital, or group home] Did you speak to anyone other than the patient for history? @ -[EMS, parent, family, police, friend?] Did you review nursing and triage notes? @ -[agree or disagree, why?] Were old charts reviewed? @ -[outside hosp., previous admissions, EMS record, old EKG, old radiological studies, urgent care reports/EKGs, group home records?] Differential Diagnosis? @ -[chest pain, altered mental status abdominal pain women, abdominal pain men, vaginal bleeding, weakness, fever, dyspnea, syncope, headache, dizziness, GI bleed, back pain, seizure] EKG interpreted by me (3pts min.)? @ -[none] X-rays interpreted by me (1pt min.)? @ -[none] CT interpreted by me (1pt min.)? @ -[none] U/S interpreted by me (1pt. min.)? @ -[none] What testing was considered but not performed? (CT, X-rays, U/S, labs)? Why? @ [CT, X-rays, U/S, labs? Why?] What meds were considered but not given? Why? @ -[none] Did you discuss the management of the patient with other professionals? @ -[professionals i.e. KESHA Todd, POLISHER HAND, Lab, RT, Psych Nurse, Capacitor Inspector, Thoracic Medicine Physician, Teacher, Crew Scheduler, forensic manager? Give summary] Did you reconcile home meds? @ -[none] Was smoking cessation discussed for >3mins.? @ -[none] Was critical care preformed (if so, how long)? @ -[none] Were there social determinants of health that impacted care today? How? (Homelessness, low income, unemployed, alcoholism, drug addiction, transportation, low edu. Level, literacy, decrease access to med. care, halfway, rehab)? @ -[Homelessness, low income, unemployed, alcoholism, drug addiction, trans portation, low edu. Level, literacy, decrease access to med. care, halfway, rehab?] Was there de-escalation of care discussed even if they declined? (Discuss DNR or withdrawal of care, Hospice)? @ -[Discuss DNR or withdrawal of care, Hospice?] What co-morbidities impacted this encounter? (DM, HTN, Smoking, COPD, CAD, Cancer, CVA, Hep., AIDS, mental health diagnosis, sleep apnea, morbid obesity)? @ -[DM, HTN, Smoking, COPD, CAD, Cancer, CVA, Hep., AIDS, mental health diagnosis, sleep apnea, morbid obesity?] Was patient admitted / discharged? @ -[hospital course] Undiagnosed new problem with uncertain prognosis? @ -[none] Drug Therapy requiring intensive monitoring for toxicity (Heparin, Nitro, Insulin, Cardizem)? @ -[none] Were any procedures done? @ -[none] Diagnosis/symptom? @ -[default] Acute, or Chronic, or Acute on Chronic? @ -[default] Uncomplicated (without systemic symptoms) or Complicated (systemic symptoms)? @ -[default] Side effects of treatment? @ -[none] Exacerbation, Progression, or Severe Exacerbation] @ -[no] Poses a threat to life or bodily function? @ -[no] - Lab Data Result diagrams: 03/24/23 07:55 03/24/23 07:55 Disposition Clinical Impression: Abdominal pain Disposition: ADMITTED IP TO THIS [facility] Condition: Stable
== END 2023-03-24 11:47 | disposition home or self-care (01) ==
LOC: EC 21:23 → 6NMEDSUR 03-23 01:18 → 5NMEDONC 03-23 04:49 → 1SOBS 03-23 16:27
PROVIDERS: ADMIT Internal Medicine; ATTEND Internal Medicine
DX: N83.201 Unspecified ovarian cyst, right side (principal); N80.9 Endometriosis, unspecified; E05.00 Thyrotoxicosis with diffuse goiter without thyrotoxic crisis or storm; E89.0 Postprocedural hypothyroidism; F32.A Depression, unspecified; F41.9 Anxiety disorder, unspecified; J45.30 Mild persistent asthma, uncomplicated; Z87.42 Personal history of other diseases of the female genital tract; Z79.890 Hormone replacement therapy; Z79.899 Other long term (current) drug therapy; Z88.0 Allergy status to penicillin; Z88.2 Allergy status to sulfonamides
CPT/HCPCS: 96361 ×2; 96375 ×2; 96376 ×3; 96374; 99285; 80053; 80048 ×2; 83605; 83735; 85025 ×2; 84703; 93975; 76856; G0378 ×3; J2270 ×2; J0780; J2405; J1170 ×2; J1885 ×2

== ENCOUNTER 2023-03-28 18:17 | Emergency (ER) | payer MEDICAID, OTHER ==
[2023-03-28 18:36] VITALS: TEMP 98.1
[2023-03-28] MEDS ORDERED: ONDANSETRON 4 MG/2 ML VIAL IVP STA (18:57)
[2023-03-28] MEDS ORDERED: SODIUM CHLORIDE 0.9% 1,000 ML IV STA (18:57)
[2023-03-28] MEDS ORDERED: HYDROmorphone 1 MG/ML 1 ML SYRINGE IVP STA ×2 (18:59→22:22)
--- NOTE | 2023-03-28 19:22 | XR ---
EXAM: XR chest 1V portable CLINICAL INDICATION:Female, 28 years old with history of abdominal pain; [facility] COMPARISON: 01/08/2023 TECHNIQUE: Chest single view. FINDINGS: Lines/tubes/devices: No indwelling lines are seen. Presumed extrinsic radiopaque object over the base of neck close to midline. Cardiomediastinum: Cardiac silhouette appears normal in size. Unremarkable mediastinal silhouette. Vasculature: No increased pulmonary vasculature. Lungs/pleura: No consolidation, sizeable effusion, or visible pneumothorax. Bones/soft tissues: Bony thorax appears grossly intact as seen. Regional soft tissues appear unremarkable. No evidence of subdiaphragmatic free air. IMPRESSION: No acute cardiopulmonary findings.
[2023-03-28 19:48] LABS: Basophils % (A) 1 %; Eosinophils # (A) 0.2 k/uL (0-0.7); Eosinophils % (A) 3 %; HCT 41.1 % (34.0-46.0); HGB 14.2 gm/dL (11.4-16.0); Lymphocytes # (A) 2.4 k/uL (1.0-4.8); Lymphocytes % (A) 41 %; MCH 32.6 pg (25.0-35.0); MCHC 34.5 g/dL (31.0-37.0); MCV 94.4 fL (80.0-100.0); Mean Platelet Volume 7.1; Monocytes # (A) 0.3 k/uL (0-1.0); Monocytes % (A) 6 %; Neutrophils # (A) 2.8 k/uL (1.3-7.7); Neutrophils % (A) 48 %; Platelet Count 261 k/uL (150-450); RBC 4.35 m/uL (3.80-5.40); RDW 11.6 % (11.5-15.5); WBC 5.9 k/uL (3.8-10.6)
[2023-03-28 20:00] LABS: Appearance,Urine Cloudy (Clear); Bacteria,Urine Many /hpf; Bilirubin,Urine Negative (Negative); Blood,Urine Negative (Negative); Color,Urine Colorless; Glucose,Urine (UA) Negative (Negative); Ketones,Urine Negative (Negative); Leukocyte Esterase,Urine Negative (Negative); Nitrite,Urine Negative (Negative); PH, Urine 6.5 (5.0-8.0); Protein,Urine Negative (Negative); Specific Gravity,Urine 1.006 (1.001-1.035); Squamous Epithelial Cell,Urine 1 /hpf (0-4); Urobilinogen,Urine <2.0 mg/dL (<2.0); WBC,Urine 2 /hpf (0-5)
--- NOTE | 2023-03-28 20:27 | US ---
EXAMINATION TYPE: US transvaginal DATE OF EXAM: 03/28/2023 COMPARISON: US here and outside facility on 03/22/23. Also on 03/05/23 CLINICAL INDICATION: Female, 28 years old with history of Left pelvic pain, rule out ovarian torsion; LLQ pain x 3 weeks and got worse today. Pt states pain is now moving upwards. TECHNIQUE: Transvaginal (TV) ultrasound of the pelvis was performed along with color Doppler and spe ctral waveform analysis. Date of LMP: 03/04/23 EXAM MEASUREMENTS: Uterus: 9.0 x 5.4 x 3.5 cm Endometrial Stripe: 1.2 cm Right Ovary: 3.6 x 3.5 x 2.3 cm Left Ovary: 4.4 x 2.8 x 2.8 cm 1. Uterus: Anteverted wnl 2. Endometrium: wnl 3. Right Ovary: Complex area seen measuring 2.4 x 1.9 x 2cm with hypoechoic center with increased th rough transmission and some peripheral tissue with higher echogenicity. No internal flow on color Dop pler. 4. Left Ovary: Slightly limited due to location of ovary and pt being in pain. Appears heterogeneous , but there is blood flow. Spectral, color and waveform doppler imaging shows good arterial and venous flow within the ovaries ; there is no evidence for ovarian torsion. 5. Bilateral Adnexa: wnl 6. Posterior cul-de-sac: wnl IMPRESSION: Preserved color Doppler flow with appropriate vascular waveforms demonstrated to both ova carole at the time of the exam, no sonographic evidence to suggest torsion at this time. 1. Right ovarian structure, likely involuting follicle/cyst.
[2023-03-28 20:35] LABS: ALT 68 U/L (4-34); AST 40 U/L (14-36); African American GFR (CKD) >90 (>60 ml/min/1.73 sqM); Albumin 3.8 g/dL (3.5-5.0); Alkaline Phosphatase 61 U/L (38-126); Anion Gap 8 mmol/L; Blood Urea Nitrogen 8 mg/dL (7-17); Calcium 8.3 mg/dL (8.4-10.2); Carbon Dioxide 18 mmol/L (22-30); Chloride 111 mmol/L (98-107); Glucose 91 mg/dL (74-99); Lipase 46 U/L (23-300); Magnesium 1.9 mg/dL (1.6-2.3); Non-African American GFR(CKD) >90 (>60 ml/min/1.73 sqM); Potassium 3.8 mmol/L (3.5-5.1); Sodium 137 mmol/L (137-145); Total Bilirubin 0.4 mg/dL (0.2-1.3); Total Protein 6.6 g/dL (6.3-8.2)
[2023-03-28] MEDS ORDERED: KETOROLAC 15 MG/ML 1 ML VIAL IVP STA (20:37)
[2023-03-28 20:45] LABS: HCG,Qualitative Serum Not Detected
[2023-03-28] MEDS ORDERED: IOPAMIDOL CONTRAST (ORAL USE) VIAL PO PRN (20:48)
--- NOTE | 2023-03-28 20:48 | ED ---
Abdominal Pain HPI - General Chief Complaint: Abdominal Pain Stated Complaint: abd pain Time Seen by Provider: 03/28/23 18:43 Source: patient, family, RN notes reviewed Mode of arrival: ambulatory Limitations: no limitations - History of Present Illness Initial Comments: Patient presents to the emergency department with pain in the left pelvic area and left lower quadrant. Patient states this has been present since she was seen here on March 22 when she was transferred from [facility] here due to an abnormal ultrasound. Apparently there was questionable flow to the left ovary at that time. Patient was subsequently admitted here and ended up seeing both surgery, Dr. Titus and gynecology, Dr. Morris. No definitive diagnosis was found. Patient states she has been in some pain since. Patient states her primary care physician has her on hydrocodone/acetaminophen, 10/325 mg. Patient states that today after having a bowel movement the pain got much worse. Located in the left pelvic area, sharp in nature, radiates into the left abdomen, feels like a tearing sensation. Also feels like a spasm type sensation. Patient has had nausea without vomiting. No hematemesis coffee- ground emesis. No hematochezia or melena. No bright red blood per rectum. No urinary complaints. MD Complaint: abdominal pain - Related Data Home Medications Medication Instructions Recorded Confirmed Albuterol Nebulized [Ventolin 2.5 mg INHALATION RT-QID PRN 05/18/22 03/23/23 Nebulized] Dicyclomine [Bentyl] 10 mg PO TID PRN 05/18/22 03/23/23 Levothyroxine Sodium [Synthroid] 137 mcg PO DAILY 05/18/22 03/23/23 Albuterol Sulfate [Albuterol 1 - 2 puff PO RT-Q4H PRN 06/22/22 03/23/23 Sulfate Hfa] ALPRAZolam [Xanax] 1 mg PO BID PRN 03/10/23 03/23/23 Cholecalciferol (Vitamin D3) 1 tab PO DAILY 03/10/23 03/23/23 [Vitamin D3 (125 MCG = 5,000 IU)] Desvenlafaxine [Pristiq ER] 100 mg PO QAM 03/10/23 03/23/23 Montelukast [Singulair] 10 mg PO QAM 03/10/23 03/23/23 Propranolol [Inderal] 10 mg PO TID 03/10/23 03/23/23 predniSONE 5 mg PO BID 03/10/23 03/23/23 HYDROcodone/APAP 5-325MG [[place] 2 tab PO Q8H PRN 03/23/23 03/23/23 5-325] Previous Rx's Medication Instructions Recorded Ibuprofen [Motrin] 600 mg PO Q8HR PRN #20 tab 12/13/22 Ondansetron Odt [Zofran ODT] 4 mg PO Q8HR PRN #10 tab 12/13/22 Ketorolac [Toradol] 10 mg PO Q6HR PRN #12 tab 03/06/23 oxyCODONE HCL/ACETAMINOPHEN 1 tab PO Q6HR PRN 3 Days #12 tab 03/28/23 [Percocet 7.5-325 mg] Allergies Allergy/AdvReac Type Severity Reaction Status Date / Time amoxicillin Allergy Rash/Hives Verified 03/23/23 09:10 nickel Allergy Rash/Hives Verified 03/23/23 09:10 sulfamethoxazole Allergy Rash/Hives Verified 03/23/23 09:10 [From Septra] trimethoprim [From Octra] Allergy Rash/Hives Verified 03/23/23 09:10 corn AdvReac Diarrhea Verified 03/23/23 09:10 Review of Systems ROS Statement: Those systems with pertinent positive or pertinent negative responses have been documented in the HPI. ROS Other: All systems not noted in ROS Statement are negative. 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 towel stretcher History of Any Multi-Drug Resistant Organisms: None Reported Past Surgical History: Appendectomy, Section Additional Past Surgical History / Comment(s): thyroidectomy 09/2017, Laparoscopic exam w/ cautery endometriosis 2012 Past Anesthesia/Blood Transfusion Reactions: No Reported Reaction Past Psychological History: Anxiety, Depression Smoking Status: Never smoker Past Alcohol Use History: Occasional, Rare Past Drug Use History: None Reported - Past Family History Mother Family Medical History: Asthma Father Family Medical History: Coronary Artery Disease (CAD), CVA/TIA Brother(s) Family Medical History: Asthma General Exam - General Exam Comments Initial Comments: Patient does not appear to be ill or toxic. Vital signs reviewed. Cranial nerves II through XII grossly intact. Alert and orient x 4. Limitations: no limitations General appearance: alert, in distress Head exam: Present: atraumatic, normocephalic, normal inspection Eye exam: Present: normal appearance, PERRL, EOMI. Absent: scleral icterus, conjunctival injection, periorbital swelling ENT exam: Present: normal exam, mucous membranes moist Neck exam: Present: normal inspection. Absent: tenderness, meningismus, lymphadenopathy Respiratory exam: Present: normal lung sounds bilaterally. Absent: respiratory distress, wheezes, rales, rhonchi, stridor Cardiovascular Exam: Present: regular rate, normal rhythm, normal heart sounds. Absent: systolic murmur, diastolic murmur, rubs, gallop, clicks GI/Abdominal exam: Present: soft, tenderness, guarding, normal bowel sounds, other (Tenderness in the left pelvic and left abdominal area. No mass, guarding with some percussion tenderness. No rebound). Absent: distended, rebound, rigid Extremities exam: Present: normal inspection, full ROM, normal capillary refill. Absent: tenderness, pedal edema, joint swelling, calf tenderness Back exam: Present: normal inspection Neurological exam: Present: alert, oriented X3, CN II-XII intact Psychiatric exam: Present: normal affect, normal mood Skin exam: Present: warm, dry, intact, normal color. Absent: rash Course Vital Signs 03/28/23 03/28/23 03/28/23 18:22 21:05 22:05 Temperature 98.1 F Pulse Rate 98 120 H 132 H Respiratory 20 18 22 Rate Blood Pressure 130/81 166/124 151/96 O2 Sat by Pulse 99 97 97 Oximetry - Reevaluation(s) Reevaluation #1: 03/28/23 22:23 Patient reevaluated, patient still having pain. Awaiting CT results. Additional dose of hydromorphone ordered. Medical Decision Making - Medical Decision Making Was pt. sent in by a medical professional or institution? @ -No Did you speak to anyone other than the patient for history? @ -Patient's friend in the room, patient's mother was also in the room at the end of the visit. Did you review nursing and triage notes? @ -Agree Were old charts reviewed? @ -Reviewed outside EKG Differential Diagnosis? @ -Differential diagnosis includes but not limited to: Ileus, bowel obstruction, enteritis, less likely diverticulitis or perforated viscus, does not appear to be consistent with urological procedure kidney stone. Intermittent ovarian torsion possible. Ovarian cyst/ruptured possible. Ectopic within the differential. Does not appear to be consistent with cardiopulmonary disease or systemic infectious process. EKG interpreted by me (3pts min.)? @ -[none] X-rays interpreted by me (1pt min.)? @ -Chest x-ray independently interpreted by me shows no evidence of acute pathology. Reviewed radiology interpretation CT interpreted by me (1pt min.)? @ -CT scan interpreted by me shows increased stool pattern. No other acute abnormalities. U/S interpreted by me (1pt. min.)? @ -Transvaginal ultrasound independently interpreted by me shows no evidence of acute pathology other than the cyst noted by radiology. What testing was considered but not performed? (CT, X-rays, U/S, labs)? Why? @ [CT, X-rays, U/S, labs? Why?] What meds were considered but not given? Why? @ -I did consider an enema here as well as laxatives based on the CT findings. However after discussion with the patient. These will be done on an outpatient basis. Did you discuss the management of the patient with other professionals? @ -No Did you reconcile home meds? @ -[none] Was smoking cessation discussed for >3mins.? @ -[none] Was critical care preformed (if so, how long)? @ -[none] Were there social determinants of health that impacted care today? How? (Homelessness, low income, unemployed, alcoholism, drug addiction, transpo rtation, low edu. Level, literacy, decrease access to med. care, retirement, rehab)? @ -None noted Was there de-escalation of care discussed even if they declined? (Discuss DNR or withdrawal of care, Hospice)? @ -[Discuss DNR or withdrawal of care, Hospice?] What co-morbidities impacted this encounter? (DM, HTN, Smoking, COPD, CAD, Cancer, CVA, Hep., AIDS, mental health diagnosis, sleep apnea, morbid obesity)? @ -Endometriosis, ovarian cyst, irritable bowel syndrome, anxiety Was patient admitted / discharged? @ -Discharge, improved, stable Undiagnosed new problem with uncertain prognosis? @ -[none] Drug Therapy requiring intensive monitoring for toxicity (Heparin, Nitro, Insulin, Cardizem)? @ -[none] Were any procedures done? @ -[none] Diagnosis/symptom? @ -Abdominal pain, likely related to constipation. Certainly could be functional abdominal pain or an undiagnosed etiology. Patient has upcoming appointment with gastroenterology. Other diagnoses hepatic steatosis and constipation unlikely to pose threat to life or bodily function Acute, or Chronic, or Acute on Chronic? @ -Acute Uncomplicated (without systemic symptoms) or Complicated (systemic symptoms)? @ -Uncomplicated Side effects of treatment? @ -[none] Exacerbation, Progression, or Severe Exacerbation] @ -Progression/exacerbation Poses a threat to life or bodily function? @ -Unlikely to pose threat to life or bodily function Patient was told to return to the ER for any signs or symptoms worsen. Told to return immediately if any other problems arise. All questions answered. Treatment plan discussed. Patient in agreement Every effort has been made to ensure accuracy of this dictation. However, due to the limitations of electronic medical records and dictation devices, errors in charting still occur. Patient was improved at discharge. Will have the patient follow-up with her regular physician. I did advise cutting down on the pain medication. Did give the patient a 3-day course of Percocet. Advised that she cut the tablet in half. Advised MiraLAX, daily fiber supplement, increase fluids. Follow-up with gastroenterology as planned. Patient concurs with this treatment plan. Suspect the patient's hypertension and tachycardia at times is due to anxiety which the patient has had previously. Laboratory investigations were essentially unremarkable. Patient did have a slight bump in her hepatic enzymes which she has had previously. Likely related to hepatic steatosis. test negative. Urinalysis unremarkable - Lab Data Result diagrams: 03/28/23 19:32 03/28/23 20:03 Lab Results 03/28/23 03/28/23 03/28/23 Range/Units 19:32 19:32 19:32 WBC 5.9 (3.8-10.6) k/uL RBC 4.35 (3.80-5.40) m/uL Hgb 14.2 (11.4-16.0) gm/dL Hct 41.1 (34.0-46.0) % MCV 94.4 (80.0-100.0) fL MCH 32.6 (25.0-35.0) pg MCHC 34.5 (31.0-37.0) g/dL RDW 11.6 (11.5-15.5) % Plt Count 261 (150-450) k/uL MPV 7.1 Neutrophils % 48 % Lymphocytes % 41 % Monocytes % 6 % Eosinophils % 3 % Basophils % 1 % Neutrophils # 2.8 (1.3-7.7) k/uL Lymphocytes # 2.4 (1.0-4.8) k/uL Monocytes # 0.3 (0-1.0) k/uL Eosinophils # 0.2 (0-0.7) k/uL Basophils # 0.0 (0-0.2) k/uL Sodium (137-145) mmol/L Potassium (3.5-5.1) mmol/L Chloride (98-107) mmol/L Carbon Dioxide (22-30) mmol/L Anion Gap mmol/L BUN (7-17) mg/dL Creatinine (0.52-1.04) mg/dL Est GFR (CKD-EPI)AfAm (>60 ml/min/1.73 sqM) Est GFR (CKD-EPI)NonAf (>60 ml/min/1.73 sqM) Glucose (74-99) mg/dL Plasma Lactic Acid Beau 1.0 (0.7-2.0) mmol/L Calcium (8.4-10.2) mg/dL Magnesium (1.6-2.3) mg/dL Total Bilirubin (0.2-1.3) mg/dL AST (14-36) U/L ALT (4-34) U/L Alkaline Phosphatase (38-126) U/L Total Protein (6.3-8.2) g/dL Albumin (3.5-5.0) g/dL Lipase (23-300) U/L HCG, Qual Urine Color Colorless Urine Appearance Cloudy H (Clear) Urine pH 6.5 (5.0-8.0) Ur Specific [place] 1.006 (1.001-1.035) Urine Protein Negative (Negative) Urine Glucose (UA) Negative (Negative) Urine Ketones Negative (Negative) Urine Blood Negative (Negative) Urine Nitrite Negative (Negative) Urine Bilirubin Negative (Negative) Urine Urobilinogen <2.0 (<2.0) mg/dL Ur Leukocyte Esterase Negative (Negative) Urine WBC 2 (0-5) /hpf Ur Squamous Epith Cells 1 (0-4) /hpf Urine Bacteria Many H (None) /hpf 03/28/23 Range/Units 20:03 WBC (3.8-10.6) k/uL RBC (3.80-5.40) m/uL Hgb (11.4-16.0) gm/dL Hct (34.0-46.0) % MCV (80.0-100.0) fL MCH (25.0-35.0) pg MCHC (31.0-37.0) g/dL RDW (11.5-15.5) % Plt Count (150-450) k/uL MPV Neutrophils % % Lymphocytes % % Monocytes % % Eosinophils % % Basophils % % Neutrophils # (1.3-7.7) k/uL Lymphocytes # (1.0-4.8) k/uL Monocytes # (0-1.0) k/uL Eosinophils # (0-0.7) k/uL Basophils # (0-0.2) k/uL Sodium 137 (137-145) mmol/L Potassium 3.8 (3.5-5.1) mmol/L Chloride 111 H (98-107) mmol/L Carbon Dioxide 18 L (22-30) mmol/L Anion Gap 8 mmol/L BUN 8 (7-17) mg/dL Creatinine 0.49 L (0.52-1.04) mg/dL Est GFR (CKD-EPI)AfAm >90 (>60 ml/min/1.73 sqM) Est GFR (CKD-EPI)NonAf >90 (>60 ml/min/1.73 sqM) Glucose 91 (74-99) mg/dL Plasma Lactic Acid Beau (0.7-2.0) mmol/L Calcium 8.3 L (8.4-10.2) mg/dL Magnesium 1.9 (1.6-2.3) mg/dL Total Bilirubin 0.4 (0.2-1.3) mg/dL AST 40 H (14-36) U/L ALT 68 H (4-34) U/L Alkaline Phosphatase 61 (38-126) U/L Total Protein 6.6 (6.3-8.2) g/dL Albumin 3.8 (3.5-5.0) g/dL Lipase 46 (23-300) U/L HCG, Qual Not Detected Urine Color Urine Appearance (Clear) Urine pH (5.0-8.0) Ur Specific [place] (1.001-1.035) Urine Protein (Negative) Urine Glucose (UA) (Negative) Urine Ketones (Negative) Urine Blood (Negative) Urine Nitrite (Negative) Urine Bilirubin (Negative) Urine Urobilinogen (<2.0) mg/dL Ur Leukocyte Esterase (Negative) Urine WBC (0-5) /hpf Ur Squamous Epith Cells (0-4) /hpf Urine Bacteria (None) /hpf Disposition Clinical Impression: Abdominal pain, Constipation, Hepatic steatosis Disposition: HOME SELF-CARE Condition: Stable Instructions (If sedation given, give patient instructions): Constipation (ED), Non-Alcoholic Fatty Liver Disease (ED), Abdominal Pain (ED) Additional Instructions: Drink plenty of fluids. Take MiraLAX once a day for 3 days. Add in a daily fiber supplement. Use 1/2 tablet of the pain medication if you can get by with that. Use regular [id number] acetaminophen if the pain is not severe. Make sure you do not use acetaminophen and the pain medication together as they both contain acetaminophen. Follow-up with your regular physician. Touch base tomorrow by phone. Continue with your planned appointment with your kettle skimmer. Follow-up with your regular physician as directed. Return to the ER immediately if any symptoms worsen, new symptoms arise, or any other problems develop. Prescriptions: oxyCODONE HCL/ACETAMINOPHEN [Percocet 7.5-325 mg] 1 tab PO Q6HR PRN 3 Days #12 tab PRN Reason: Pain Is patient prescribed a controlled substance at d/c from ED?: No When asked, does pt state using other controlled substances?: No If prescribed controlled substance>3 days was MAPS reviewed?: Prescribed <3 Days If opioid is for acute pain is fill amount 7 days or less?: Yes If Rx opioid, was Start Talking consent form obtained?: Yes Referrals: Tiffanie Graham MD [Primary Care Provider] - 1-2 days Time of Disposition: 23:46
[2023-03-28] MEDS ORDERED: PROPRANOLOL 10 MG TAB PO ONE (22:45)
--- NOTE | 2023-03-28 23:34 | CT ---
EXAMINATION TYPE: CT abdomen pelvis w con CT DLP: 836 mGycm, Automated exposure control for dose reduction was used. DATE OF EXAM: 03/28/2023 9:26 PM COMPARISON: None. CLINICAL INDICATION:Female, 28 years old with history of Left pelvic and left lower quadrant abdomina l pain; LLQ abdominal and pelvic pain x 3 weeks. TECHNIQUE: Axial CT of the abdomen and pelvis. Sagittal and coronal reformats were created on a [employer] workstation. Contrast used:100 mL of Isovue 300 with IV Contrast, (none if empty) Oral contrast used: without Oral Contrast (none if empty) FINDINGS: LOWER CHEST: Unremarkable ABDOMEN LIVER: Liver appears mildly prominent measuring 16 cm in length. Moderate diffuse steatosis. In the central liver near the joon hepatis there is a 30 x 19 x 24 mm homogeneously enhancing lesion seen w hich may represent an area of fatty sparing or flash filling hemangioma. No suspicious liver masses a re seen. GALLBLADDER AND BILE DUCTS: Unremarkable gallbladder. No biliary ductal dilatation. PANCREAS: Unremarkable. SPLEEN: Unremarkable. ADRENAL GLANDS: Unremarkable. KIDNEYS AND URETERS: Kidneys enhance symmetrically. Small cysts in the bilateral kidneys. A few punct ate nonobstructing bilateral renal calculi. Mildly prominent extrarenal pelves are seen with nondilat ed ureters. PELVIS BLADDER: Unremarkable REPRODUCTIVE: Uterus is present with prominent central uterine low-attenuation likely related to phas e of menstruation, correlate clinically. There is a 16 mm hemorrhagic cyst or involuting follicle of the right ovary. Presumed left ovary appears normal. ABDOMEN & PELVIS STOMACH AND BOWEL: Stomach and small bowel are nondistended, no evidence of obstruction. The append ix is not seen with certainty but there is no inflammatory process seen in the pericecal region. The re is some increased density mixed with stool in the right colon, likely contrast from a previous adm inistration. Mild/moderate stool throughout colon without focal acute abnormality. PERITONEUM/RETROPERITONEUM: No evidence of pneumoperitoneum or free fluid. Small radiodense foci se en near the right iliac artery could be postoperative changes and/or calcified lymph nodes. VASCULATURE: Aorta and major branches are grossly unremarkable. No AAA. Portal veins are enhancing. Splenic vein is patent. LYMPH NODES: No gross evidence for lymphadenopathy. SOFT TISSUE/ABDOMINAL WALL: Tiny fat-containing umbilical region hernia. Rounded 12 mm soft tissue de nsity subcutaneous in the right anterolateral abdominal wall, could represent sequela of medication i njection versus other. MUSCULOSKELETAL: No acute osseous abnormalities. No significant degenerative changes. IMPRESSION: 1. No acute abnormality in the abdomen or pelvis to explain the patient's symptoms. 2. Moderate hepatic steatosis, mild hepatomegaly. 3. Other chronic and likely incidental findings, as described above.
[2023-03-29 00:11] VITALS: BP 132/87; PULSE 87; RESP 18
== END 2023-03-28 23:57 | disposition home or self-care (01) ==
LOC: EC 18:17
DX: K59.00 Constipation, unspecified (principal); K83.1 Obstruction of bile duct
CPT/HCPCS: 36415; 80053; 83605; 83690; 83735; 85025; 81001; 84703; 71045; 93975; 76830; 74177; 99285; 96374; 96375 ×3; 96376; 96361 ×3; J3360; J2405; J1170; J1885; Q9967

== ENCOUNTER 2023-04-25 09:58 | Observation (INO) | payer MEDICAID, OTHER ==
--- NOTE | 2023-04-25 10:39 | ED ---
General Adult HPI - General Chief complaint: Abdominal Pain Stated complaint: abd pain-gallbladder Time Seen by Provider: 04/25/23 10:01 Source: patient, RN notes reviewed, old records reviewed Mode of arrival: ambulatory Limitations: no limitations - History of Present Illness Initial comments: Patient is a 28-year-old female who presents emergency department with recurrent abdominal pain. Has a known issues with her gallbladder. Is due to have it evaluated and possibly removed however patient presents for continued pain at this time. Pain medications did not seem to help. Would like to have it evaluated once again. Is not due to follow-up for multiple weeks. Has fevers, chills. Endorses nausea and occasional emesis. Denies diarrhea. Denies chest pain or shortness of breath. No other acute complaints at this time. - Related Data Home Medications Medication Instructions Recorded Confirmed Albuterol Nebulized [Ventolin 2.5 mg INHALATION RT-QID PRN 05/18/22 03/23/23 Nebulized] Dicyclomine [Bentyl] 10 mg PO TID PRN 05/18/22 03/23/23 Levothyroxine Sodium [Synthroid] 137 mcg PO DAILY 05/18/22 03/23/23 Albuterol Sulfate [Albuterol 1 - 2 puff PO RT-Q4H PRN 06/22/22 03/23/23 Sulfate Hfa] ALPRAZolam [Xanax] 1 mg PO BID PRN 03/10/23 03/23/23 Cholecalciferol (Vitamin D3) 1 tab PO DAILY 03/10/23 03/23/23 [Vitamin D3 (125 MCG = 5,000 IU)] Desvenlafaxine [Pristiq ER] 100 mg PO QAM 03/10/23 03/23/23 Montelukast [Singulair] 10 mg PO QAM 03/10/23 03/23/23 Propranolol [Inderal] 10 mg PO TID 03/10/23 03/23/23 predniSONE 5 mg PO BID 03/10/23 03/23/23 HYDROcodone/APAP 5-325MG [[place] 2 tab PO Q8H PRN 03/23/23 03/23/23 5-325] Previous Rx's Medication Instructions Recorded Ibuprofen [Motrin] 600 mg PO Q8HR PRN #20 tab 12/13/22 Ondansetron Odt [Zofran ODT] 4 mg PO Q8HR PRN #10 tab 12/13/22 Ketorolac [Toradol] 10 mg PO Q6HR PRN #12 tab 03/06/23 oxyCODONE HCL/ACETAMINOPHEN 1 tab PO Q6HR PRN 3 Days #12 tab 03/28/23 [Percocet 7.5-325 mg] Allergies Allergy/AdvReac Type Severity Reaction Status Date / Time amoxicillin Allergy Rash/Hives Verified 03/23/23 09:10 nickel Allergy Rash/Hives Verified 03/23/23 09:10 sulfamethoxazole Allergy Rash/Hives Verified 03/23/23 09:10 [From ] trimethoprim [From ] Allergy Rash/Hives Verified 03/23/23 09:10 corn AdvReac Diarrhea Verified 03/23/23 09:10 Review of Systems ROS Statement: Those systems with pertinent positive or pertinent negative responses have been documented in the HPI. Review of Systems: CONST: Denies fever EYES: Denies blurry vision ENT: Denies nasal congestion C/V: Denies Chest pain RESP: Denies shortness of breath GI: Endorses abdominal pain : Denies dysuria SKIN: Denies rash. MSK: Denies joint pain. NEURO: Denies headache ROS Other: All systems not noted in ROS Statement are negative. 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 cash management clerk, History of Any Multi-Drug Resistant Organisms: None Reported Past Surgical History: Appendectomy, Section Additional Past Surgical History / Comment(s): thyroidectomy 09/2017, Laparoscopic exam w/ cautery endometriosis 2012 Past Anesthesia/Blood Transfusion Reactions: No Reported Reaction Past Psychological History: Anxiety, Depression Smoking Status: Never smoker Past Alcohol Use History: Occasional, Rare Past Drug Use History: None Reported - Past Family History Mother Family Medical History: Asthma Father Family Medical History: Coronary Artery Disease (CAD), CVA/TIA Brother(s) Family Medical History: Asthma General Exam - General Exam Comments Initial Comments: General: Appears in mild distress. HEAD: Normal with no signs of head trauma. EYES: PERRLA, EOMI, conjunctiva normal, no discharge. ENT: Hearing grossly intact, normal oropharynx. RESPIRATORY: Clear breath sounds bilaterally. No wheezes, rales, or rhonchi. C/V: Regular rate and rhythm. S1 and S2 auscultated, peripheral pulses 2+ and intact throughout ABD: Epigastric/right upper quadrant abdominal pain. No guarding. No peritoneal signs. No rebound tenderness. Abdomen is nondistended. EXT: Normal range of motion, no obvious deformity SKIN: No rashes or lesions observed on exposed skin. NEURO: Alert and oriented x 4. Limitations: no limitations Course Vital Signs 04/25/23 04/25/23 10:05 12:55 Temperature 98.0 F Pulse Rate 102 H 91 Respiratory 18 18 Rate Blood Pressure 123/89 156/87 O2 Sat by Pulse 97 97 Oximetry Medical Decision Making - Medical Decision Making Was pt. sent in by a medical professional or institution (, PA, FLASK HANDLER, urgent care, hospital, or group home...) When possible be specific @ -No Did you speak to anyone other than the patient for history (EMS, parent, family, police, friend...)? What history was obtained from this source @ -No Did you review nursing and triage notes (agree or disagree)? Why? @ -I reviewed and agree with nursing and triage notes Were old charts reviewed (outside hosp., previous admission, EMS record, old EKG, old radiological studies, urgent care reports/EKG's, group home records)? Report findings @ -Old charts reviewed Differential Diagnosis (chest pain, altered mental status, abdominal pain women, abdominal pain men, vaginal bleeding, weakness, fever, dyspnea, syncope, headache, dizziness, GI bleed, back pain, seizure, CVA, palpatations, mental health, musculoskeletal)? @ -Differential Abdominal Pain Women: Appendicitis, Cholecystitis, diverticulosis, ischemic bowel, pancreatitis, hepatitis, UTI, gastroenteritis, AAA, incarcerated hernia, bowel obstruction, constipation, inflammatory bowel, hepatitis, peptic ulcer disease, splenic infarction, perforated viscus, vulvitis, ovarian torsion, PID, kidney stone, placenta abruption, this is not meant to be an all-inclusive list EKG interpreted by me (3pts min.). @ -None done X-rays interpreted by me (1pt min.). @ -None done CT interpreted by me (1pt min.). @ -None done U/S interpreted by me (1pt. min.). @ -Ultrasound reveals positive sonographic Haywood sign as well as biliary sludge but no obvious stone or signs of cholecystitis. What testing was considered but not performed or refused? (CT, X-rays, U/S, labs)? Why? @ -None What meds were considered but not given or refused? Why? @ -None Did you discuss the management of the patient with other professionals (professionals i.e. DrMarc, PA, FLASK HANDLER, lab, RT, psych nurse, older adult social work specialist, case finisher, teacher, foreign service officer, child support case officer)? Give summary @ -I spoke with Dr. Titus who was in agreement with plan for admission and patient made n.p.o. for likely surgery. Was smoking cessation discussed for >3mins.? @ -No Was critical care preformed (if so, how long)? @ -No Were there social determinants of health that impacted care today? How? (Homelessness, low income, unemployed, alcoholism, drug addiction, transportation, low edu. Level, literacy, decrease access to med. care, correction, rehab)? @ -No Was there de-escalation of care discussed even if they declined (Discuss DNR or withdrawal of care, Hospice)? DNR status @ -No What co-morbidities impacted this encounter? (DM, HTN, Smoking, COPD, CAD, Cancer, CVA, ARF, Chemo, Hep., AIDS, mental health diagnosis, sleep apnea, morbid obesity)? @ -Known gallbladder issues, biliary sludge Was patient admitted / discharged? Hospital course, mention meds given and route, prescriptions, significant lab abnormalities, going to OR and other pertinent info. @ -Based on the patient's presentation and physical exam, presents with acute on chronic abdominal pain, likely from her gallbladder. Is due to have it evaluated for removal in the coming weeks but is uncertain if she can wait that long. Presents for further evaluation at this time. Vital signs are within acceptable limits. We will obtain abdominal laboratory studies, ultrasound of the gallbladder, as well as administer IV medications and fluids for symptomatic control. Ultrasound reveals continued findings of biliary sludge but no evidence of cholecystitis. Labs showed minimally elevated AST and ALT. On reevaluation, patient still complaining of pain. Given additional analgesia medications. I spoke with on-call surgeon, Dr. Titus who accepted the patient onto his service. Patient made NPO. Patient will be given empiric doses of Rocephin and Flagyl. Patient was in agreement with this plan. Undiagnosed new problem with uncertain prognosis? @ -No Drug Therapy requiring intensive monitoring for toxicity (Heparin, Nitro, Insulin, Cardizem)? @ -No Were any procedures done? @ -No Diagnosis/symptom? @ -Intractable abdominal pain, biliary colic, biliary sludge Acute, or Chronic, or Acute on Chronic? @ -Acute Uncomplicated (without systemic symptoms) or Complicated (systemic symptoms)? @ -Complicated Side effects of treatment? @ -None Exacerbation, Progression, or Severe Exacerbation] @ -No Poses a threat to life or bodily function? @ -Yes - Lab Data Result diagrams: 04/25/23 11:15 04/25/23 11:15 Lab Results 04/25/23 04/25/23 04/25/23 Range/Units 11:15 11:15 11:15 WBC 5.5 (3.8-10.6) k/uL RBC 4.18 (3.80-5.40) m/uL Hgb 13.1 (11.4-16.0) gm/dL Hct 38.5 (34.0-46.0) % MCV 92.2 (80.0-100.0) fL MCH 31.5 (25.0-35.0) pg MCHC 34.1 (31.0-37.0) g/dL RDW 12.2 (11.5-15.5) % Plt Count 270 (150-450) k/uL MPV 7.5 Neutrophils % 49 % Lymphocytes % 40 % Monocytes % 5 % Eosinophils % 2 % Basophils % 0 % Neutrophils # 2.7 (1.3-7.7) k/uL Lymphocytes # 2.2 (1.0-4.8) k/uL Monocytes # 0.3 (0-1.0) k/uL Eosinophils # 0.1 (0-0.7) k/uL Basophils # 0.0 (0-0.2) k/uL PT 10.6 (10.0-12.5) sec INR 1.0 (<1.2) APTT 25.7 (22.0-30.0) sec Sodium 139 (137-145) mmol/L Potassium 4.4 (3.5-5.1) mmol/L Chloride 106 (98-107) mmol/L Carbon Dioxide 28 (22-30) mmol/L Anion Gap 5 mmol/L BUN 9 (7-17) mg/dL Creatinine 0.61 (0.52-1.04) mg/dL Est GFR (CKD-EPI)AfAm >90 (>60 ml/min/1.73 sqM) Est GFR (CKD-EPI)NonAf >90 (>60 ml/min/1.73 sqM) Glucose 81 (74-99) mg/dL Plasma Lactic Acid Beau (0.7-2.0) mmol/L Calcium 9.2 (8.4-10.2) mg/dL Total Bilirubin 0.5 (0.2-1.3) mg/dL AST 53 H (14-36) U/L ALT 67 H (4-34) U/L Alkaline Phosphatase 61 (38-126) U/L Total Protein 7.0 (6.3-8.2) g/dL Albumin 4.4 (3.5-5.0) g/dL Amylase 50 (30-110) U/L Lipase 43 (23-300) U/L 04/25/23 Range/Units 11:15 WBC (3.8-10.6) k/uL RBC (3.80-5.40) m/uL Hgb (11.4-16.0) gm/dL Hct (34.0-46.0) % MCV (80.0-100.0) fL MCH (25.0-35.0) pg MCHC (31.0-37.0) g/dL RDW (11.5-15.5) % Plt Count (150-450) k/uL MPV Neutrophils % % Lymphocytes % % Monocytes % % Eosinophils % % Basophils % % Neutrophils # (1.3-7.7) k/uL Lymphocytes # (1.0-4.8) k/uL Monocytes # (0-1.0) k/uL Eosinophils # (0-0.7) k/uL Basophils # (0-0.2) k/uL PT (10.0-12.5) sec INR (<1.2) APTT (22.0-30.0) sec Sodium (137-145) mmol/L Potassium (3.5-5.1) mmol/L Chloride (98-107) mmol/L Carbon Dioxide (22-30) mmol/L Anion Gap mmol/L BUN (7-17) mg/dL Creatinine (0.52-1.04) mg/dL Est GFR (CKD-EPI)AfAm (>60 ml/min/1.73 sqM) Est GFR (CKD-EPI)NonAf (>60 ml/min/1.73 sqM) Glucose (74-99) mg/dL Plasma Lactic Acid Beau 0.9 (0.7-2.0) mmol/L Calcium (8.4-10.2) mg/dL Total Bilirubin (0.2-1.3) mg/dL AST (14-36) U/L ALT (4-34) U/L Alkaline Phosphatase (38-126) U/L Total Protein (6.3-8.2) g/dL Albumin (3.5-5.0) g/dL Amylase (30-110) U/L Lipase (23-300) U/L Disposition Clinical Impression: Intractable abdominal pain, Biliary colic, Biliary sludge Disposition: ADMITTED IP TO THIS [facility] Condition: Stable Time of Disposition: 12:34
--- NOTE | 2023-04-25 11:21 | US ---
EXAMINATION TYPE: US gallbladder DATE OF EXAM: 04/25/2023 COMPARISON: CT 2023 CLINICAL INDICATION: Female, 28 years old with history of ruq pain; RUQ pain, patient not NPO TECHNIQUE: Multiple sonographic images of the right upper quadrant are obtained. FINDINGS: EXAM MEASUREMENTS: Liver Length: 15.9 cm Gallbladder Wall: 0.2 cm CBD: 0.4 cm Right Kidney: 9.9 x 4.9 x 4.8 cm Pancreas: visualized portions wnl, limited by overlying midline bowel gas Liver: attenuating, mildly heterogeneous Gallbladder: sludge Evidence for sonographic Haywood's sign: yes CBD: visualized portions wnl Right Kidney: hydronephrosis IMPRESSION: 1. Biliary sludge with a positive sonographic Haywood's sign per castables worker. Correlate for cholecyst itis. No pericholecystic fluid or wall thickening definitively visualized. 2. Hepatic steatosis.
[2023-04-25] MEDS: ONDANSETRON 4 MG/2 ML VIAL IVP STA (11:23)
[2023-04-25] MEDS: PANTOPRAZOLE 40 MG/10 ML VIAL IVP STA (11:23)
[2023-04-25] MEDS: SODIUM CHLORIDE 0.9% 1,000 ML IV STA (11:28)
[2023-04-25] MEDS: MORPHINE SULFATE 4 MG/ML SYRINGE IVP STA (11:28)
[2023-04-25 11:42] LABS: Basophils % (A) 0 %; Eosinophils # (A) 0.1 k/uL (0-0.7); Eosinophils % (A) 2 %; HCT 38.5 % (34.0-46.0); HGB 13.1 gm/dL (11.4-16.0); Lymphocytes # (A) 2.2 k/uL (1.0-4.8); Lymphocytes % (A) 40 %; MCH 31.5 pg (25.0-35.0); MCHC 34.1 g/dL (31.0-37.0); MCV 92.2 fL (80.0-100.0); Mean Platelet Volume 7.5; Monocytes # (A) 0.3 k/uL (0-1.0); Monocytes % (A) 5 %; Neutrophils # (A) 2.7 k/uL (1.3-7.7); Neutrophils % (A) 49 %; Platelet Count 270 k/uL (150-450); RBC 4.18 m/uL (3.80-5.40); RDW 12.2 % (11.5-15.5); WBC 5.5 k/uL (3.8-10.6)
[2023-04-25] MEDS: MORPHINE SULFATE 2 MG/ML SYRINGE IVP STA (11:43)
[2023-04-25 11:51] LABS: ALT 67 U/L (4-34); AST 53 U/L (14-36); African American GFR (CKD) >90 (>60 ml/min/1.73 sqM); Albumin 4.4 g/dL (3.5-5.0); Alkaline Phosphatase 61 U/L (38-126); Amylase 50 U/L (30-110); Anion Gap 5 mmol/L; Blood Urea Nitrogen 9 mg/dL (7-17); Calcium 9.2 mg/dL (8.4-10.2); Carbon Dioxide 28 mmol/L (22-30); Chloride 106 mmol/L (98-107); Glucose 81 mg/dL (74-99); Lipase 43 U/L (23-300); Non-African American GFR(CKD) >90 (>60 ml/min/1.73 sqM); Potassium 4.4 mmol/L (3.5-5.1); Sodium 139 mmol/L (137-145); Total Bilirubin 0.5 mg/dL (0.2-1.3)
[2023-04-25 12:18] LABS: Partial Thromboplastin Time 25.7 sec (22.0-30.0); Prothrombin Time 10.6 sec (10.0-12.5)
[2023-04-25] MEDS ORDERED: NALOXONE 0.4 MG/ML 1 ML VIAL IV PRN (12:34)
[2023-04-25] MEDS ORDERED: ONDANSETRON 4 MG/2 ML VIAL IVP PRN (12:34)
[2023-04-25] MEDS: MORPHINE SULFATE 4 MG/ML SYRINGE IV PRN (12:55)
[2023-04-25] MEDS: SODIUM CHLORIDE 0.9% 1,000 ML IV SCH (12:55)
[2023-04-25] MEDS: HYDROmorphone 0.5 MG/0.5 ML SYRINGE IVP STA (13:53)
[2023-04-25] MEDS: LORazepam 2 MG/ML INJ IV STA (14:20)
[2023-04-25] MEDS: LACTATED RINGERS 1,000 ML IV ONE (14:44)
--- NOTE | 2023-04-25 15:00 | P.GSHP ---
History of Present Illness H&P Date: 04/25/23 Chief Complaint: Acute cholecystitis 28-year-old female known to our service. She was recently hospitalized in February. Patient was having left lower quadrant abdominal pain. She states that after she went home she started having pain more in the mid abdomen and it subsequently in the right upper quadrant. It has been present in the right upper quadrant for the last few weeks. She apparently saw GI at an outside office who told her they thought her left lower quadrant pain was referred pain from her gallbladder. Patient came back to the ER today with right upper quadrant pain. She had an ultrasound showing gallbladder sludge. ALT and AST mildly elevated. Patient with history of fatty liver. Denies any change in the color of her skin urine or stool. Pain is worse after eating. Some loose stools recently. Some nausea. Appetite diminished. 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, History of Any Multi-Drug Resistant Organisms: None Reported Past Surgical History: Appendectomy, Section Additional Past Surgical History / Comment(s): thyroidectomy 09/2017, Laparoscopic exam w/ cautery endometriosis 2012 Past Anesthesia/Blood Transfusion Reactions: No Reported Reaction Past Psychological History: Anxiety, Depression Smoking Status: Never smoker Past Alcohol Use History: Occasional, Rare Past Drug Use History: None Reported - Past Family History Mother Family Medical History: Asthma Father Family Medical History: Coronary Artery Disease (CAD), CVA/TIA Brother(s) Family Medical History: Asthma Medications and Allergies Home Medications Medication Instructions Recorded Confirmed Type Albuterol Nebulized [Ventolin 2.5 mg INHALATION RT-QID PRN 05/18/22 04/25/23 History Nebulized] Dicyclomine [Bentyl] 10 mg PO QID PRN 05/18/22 04/25/23 History Levothyroxine Sodium [Synthroid] 137 mcg PO DAILY 05/18/22 04/25/23 History Albuterol Sulfate [Albuterol 1 - 2 puff PO RT-Q4H PRN 06/22/22 04/25/23 History Sulfate Hfa] Ibuprofen [Motrin] 600 mg PO Q8HR PRN #20 tab 12/13/22 04/25/23 Rx Ondansetron Odt [Zofran ODT] 4 mg PO Q8HR PRN #10 tab 12/13/22 04/25/23 Rx Ketorolac [Toradol] 10 mg PO Q6HR PRN #12 tab 03/06/23 04/25/23 Rx ALPRAZolam [Xanax] 1 mg PO BID PRN 03/10/23 04/25/23 History Desvenlafaxine [Pristiq ER] 100 mg PO DAILY 03/10/23 04/25/23 History Montelukast [Singulair] 10 mg PO DAILY 03/10/23 04/25/23 History Propranolol [Inderal] 10 mg PO BID 03/10/23 04/25/23 History Cholecalciferol [Vitamin D3 (25 25 mcg PO DAILY 04/25/23 04/25/23 History Mcg = 1000 Iu)] Famotidine [Pepcid] 20 mg PO DAILY PRN 04/25/23 04/25/23 History oxyCODONE HCL/ACETAMINOPHEN 1 tab PO DAILY PRN 04/25/23 04/25/23 History [Percocet 5-325 mg] Allergies Allergy/AdvReac Type Severity Reaction Status Date / Time amoxicillin Allergy Rash/Hives Verified 04/25/23 14:33 nickel Allergy Rash/Hives Verified 04/25/23 14:33 sulfamethoxazole Allergy Rash/Hives Verified 04/25/23 14:33 [From ] trimethoprim [From ] Allergy Rash/Hives Verified 04/25/23 14:33 corn AdvReac Diarrhea Verified 04/25/23 14:33 Surgical - Exam Vital Signs Temp Pulse Resp BP Pulse Ox 98.0 F 102 H 18 123/89 97 04/25/23 10:05 04/25/23 10:05 04/25/23 10:05 04/25/23 10:05 04/25/23 10:05 Physical exam: General: Well-developed, well-nourished HEENT: Normocephalic, sclerae nonicteric Abdomen: Right upper quadrant tenderness nondistended Extremities: No edema Neuro: Alert and oriented Results - Labs 04/25/23 11:15 04/25/23 11:15 Abnormal Lab Results - Last 24 Hours (Table) 04/25/23 Range/Units 11:15 AST 53 H (14-36) U/L ALT 67 H (4-34) U/L Diabetes panel 04/25/23 Range/Units 11:15 Sodium 139 (137-145) mmol/L Potassium 4.4 (3.5-5.1) mmol/L Chloride 106 (98-107) mmol/L Carbon Dioxide 28 (22-30) mmol/L BUN 9 (7-17) mg/dL Creatinine 0.61 (0.52-1.04) mg/dL Glucose 81 (74-99) mg/dL Calcium 9.2 (8.4-10.2) mg/dL AST 53 H (14-36) U/L ALT 67 H (4-34) U/L Alkaline Phosphatase 61 (38-126) U/L Total Protein 7.0 (6.3-8.2) g/dL Albumin 4.4 (3.5-5.0) g/dL Calcium panel 04/25/23 Range/Units 11:15 Calcium 9.2 (8.4-10.2) mg/dL Albumin 4.4 (3.5-5.0) g/dL Pituitary panel 04/25/23 Range/Units 11:15 Sodium 139 (137-145) mmol/L Potassium 4.4 (3.5-5.1) mmol/L Chloride 106 (98-107) mmol/L Carbon Dioxide 28 (22-30) mmol/L BUN 9 (7-17) mg/dL Creatinine 0.61 (0.52-1.04) mg/dL Glucose 81 (74-99) mg/dL Calcium 9.2 (8.4-10.2) mg/dL Adrenal panel 04/25/23 Range/Units 11:15 Sodium 139 (137-145) mmol/L Potassium 4.4 (3.5-5.1) mmol/L Chloride 106 (98-107) mmol/L Carbon Dioxide 28 (22-30) mmol/L BUN 9 (7-17) mg/dL Creatinine 0.61 (0.52-1.04) mg/dL Glucose 81 (74-99) mg/dL Calcium 9.2 (8.4-10.2) mg/dL Total Bilirubin 0.5 (0.2-1.3) mg/dL AST 53 H (14-36) U/L ALT 67 H (4-34) U/L Alkaline Phosphatase 61 (38-126) U/L Total Protein 7.0 (6.3-8.2) g/dL Albumin 4.4 (3.5-5.0) g/dL Assessment and Plan (1) Acute cholecystitis Narrative/Plan: 28-year-old female with suspected acute cholecystitis. Options reviewed with patient and also the ER staff. Will proceed with laparoscopic, possible open cholecystectomy at this time. Risks of bleeding, infection, bile leak, bile duct injury, retained common bile duct stone, trocar injury, persistent pain, diarrhea, conversion to an open procedure, hernia, anesthesia related complications were reviewed. The patient understands and wishes to proceed. Current Visit: Yes Status: Acute Code(s): K81.0 - ACUTE CHOLECYSTITIS SNOMED Code(s): 94402081
[2023-04-25] MEDS: diphenhydrAMINE 50 MG/ML 1 ML VIAL ONE (15:05)
[2023-04-25] MEDS: fentaNYL (PF) 50 MCG/ML 2 ML AMP IVP ONE (15:05)
[2023-04-25] MEDS: DEXAMETHASONE SOD PHOSPHATE 4 MG/ML 1 ML VIAL IVP ONE (15:06)
[2023-04-25] MEDS: ONDANSETRON 4 MG/2 ML VIAL IVP ONE (15:06)
[2023-04-25 15:07] VITALS: RESP 16
[2023-04-25] MEDS: FAMOTIDINE 20 MG/2 ML VIAL IVP ONE (15:18)
[2023-04-25] MEDS: HEPARIN SODIUM,PORCINE 5,000 UNIT/ML 1 ML VIAL SQ ONE (15:18)
[2023-04-25] MEDS ORDERED: LIDOCAINE 1% INJ 10MG/ML (20 ML MDV) ONE (15:29)
[2023-04-25] MEDS ORDERED: ROCURONIUM 10 MG/ML (5 ML VIAL) IV ONE (15:29)
[2023-04-25] MEDS ORDERED: fentaNYL (PF) 50 MCG/ML 2 ML AMP ONE (15:29)
[2023-04-25] MEDS ORDERED: MIDAZOLAM 2 MG/2 ML VIAL ONE (15:29)
[2023-04-25] MEDS ORDERED: ONDANSETRON 4 MG/2 ML VIAL ONE (15:29)
[2023-04-25] MEDS ORDERED: HYDROmorphone (PF) 1 MG/ML ONE (15:29)
[2023-04-25] MEDS ORDERED: PROPOFOL 10 MG/ML 20 ML VIAL IV ONE (15:29)
[2023-04-25] MEDS ORDERED: GLYCOPYRROLATE 0.2 MG/ML 2 ML VIAL ONE (15:29)
[2023-04-25] MEDS ORDERED: SUCCINYLCHOLINE CHLORIDE 200 MG/10 ML VIAL IV ONE (15:29)
[2023-04-25] MEDS ORDERED: KETOROLAC 15 MG/ML 1 ML VIAL ONE (15:29)
[2023-04-25] MEDS ORDERED: NEOSTIGMINE 1 MG/ML 10 ML VIAL ONE (15:29)
[2023-04-25] MEDS: BUPIVACAINE (PF) 0.25% 30 ML VIAL SQ ONE (16:06)
[2023-04-25] MEDS ORDERED: HYDROcodone/APAP 5-325MG 1 EACH TAB PO PRN (16:44)
[2023-04-25] MEDS ORDERED: ACETAMINOPHEN TAB 325 MG TAB PO PRN (16:44)
--- NOTE | 2023-04-25 16:46 | P.OP ---
Date of Procedure: 04/25/23 Procedure(s) Performed: PREOPERATIVE DIAGNOSIS: C acute onic cholecystitis POSTOPERATIVE DIAGNOSIS: Same PROCEDURE: Laparoscopic cholecystectomy SURGEON: Ariela EBL: Minimal see anesthesia record ANESTHESIA: Gen. COMPLICATIONS: None OPERATIVE PROCEDURE: The patient was brought and placed on the operating room table in the supine position. The patient was placed under general anesthesia at that time. The abdomen was prepped and draped in the usual sterile fashion. A small curvilinear supraumbilical incision was made through the recent incision made by gynecology. The fascia was grasped with the Radhika forceps. The fascia was retracted anteriorly. The Veress needle was advanced into the peritoneal cavity. The saline drop test was normal. Insufflation took place up to 15 mmHg. A 5 mm optical trocar was advanced and the peritoneal cavity. 2 additional 5 mm trochars were placed in the right upper quadrant under direct visualization. A 12 mm trocar was advanced into the epigastric incision site. The gallbladder wall appeared mildly inflamed. The gallbladder was retracted superiorly and laterally. The peritoneum overlying the infundibulum was bluntly dissected. The patient's cystic duct was visualized. The junction between the cystic duct common and hepatic duct was identified. The critical view of safety was achieved after blunt dissection. The cystic duct was then divided after placement of 3 12 mm clips on the patient's side and one on the specimen side. The cystic artery was identified and clipped as well. A small vessel was seen along the gallbladder fossa and clipped as well. The gallbladder was then removed from the liver bed using electrocautery. The gallbladder was then removed from the epigastric trocar site with an Endo Catch bag. The gallbladder fossa was irrigated with saline. There was no evidence of any bleeding or biliary drainage seen. The fascia at the 12 millimeter site was closed using a Matias-Evie 0 Vicryl stitch. The trochars were then removed. The skin at all 4 sites was closed using a 4-0 Monocryl stitch. Skin glue was utilized on the incision sites. At the end of this procedure the sponge and needle counts were correct. DISPOSITION: Stable to the recovery room
[2023-04-25] MEDS: KETOROLAC 15 MG/ML 1 ML VIAL IVP SCH (18:27)
[2023-04-25] MEDS: LEVOFLOXACIN 500MG-D5W PMX 500 MG in DEXTROSE/WATER 1 100ML.BAG IVPB STA (18:29)
[2023-04-25] MEDS: metroNIDAZOLE-NS PMX 500 MG in SALINE 1 100ML.BAG IVPB STA (19:51)
[2023-04-25] MEDS ORDERED: ALBUTEROL NEBULIZED 2.5 MG/3 ML INHALATION PRN (20:30)
[2023-04-25] MEDS ORDERED: FAMOTIDINE 20 MG TAB PO PRN (20:30)
[2023-04-25] MEDS ORDERED: DICYCLOMINE 10 MG CAP PO PRN (20:30)
[2023-04-25] MEDS ORDERED: IBUPROFEN 600 MG TAB PO PRN (20:30)
[2023-04-25] MEDS: PROPRANOLOL 10 MG TAB PO SCH (20:54)
[2023-04-25] MEDS: HYDROmorphone 1 MG/ML 1 ML SYRINGE IVP PRN (22:19)
[2023-04-25] MEDS: ALPRAZolam 1 MG TAB PO PRN (22:19)
[2023-04-25] MEDS: HEPARIN SODIUM,PORCINE 5,000 UNIT/ML 1 ML VIAL SQ SCH (23:54)
[2023-04-26 03:13] VITALS: TEMP 98.5
[2023-04-26] MEDS: HYDROcodone/APAP 10-325MG 1 EACH TAB PO PRN (08:23)
[2023-04-26] MEDS: LEVOTHYROXINE 137 MCG TAB PO SCH (08:24)
[2023-04-26] MEDS: MONTELUKAST 10 MG TAB PO SCH (08:24)
[2023-04-26] MEDS: CHOLECALCIFEROL 25 MCG (1000 IU) TABLET PO SCH (08:25)
[2023-04-26] MEDS: PANTOPRAZOLE 40 MG/10 ML VIAL IV SCH (08:26)
[2023-04-26] MEDS: DESVENLAFAXINE SUCCINATE 50 MG TAB.ER.24H PO SCH (08:26)
[2023-04-26 08:46] VITALS: BP 131/91; PULSE 104
[2023-04-26 11:29] LABS: Basophils # (A) 0.02 X 10*3/uL (0.00-0.10); Basophils % (A) 0.2 %; Eosinophils # (A) 0 X 10*3/uL (0.04-0.35); Eosinophils % (A) 0 %; HCT 37.2 % (37.2-46.3); HGB 12.9 g/dL (12.0-15.0); Lymphocytes # (A) 1.41 X 10*3/uL (0.90-5.00); Lymphocytes % (A) 16.1 %; MCH 31.9 pg (27.0-32.0); MCHC 34.7 g/dL (32.0-37.0); MCV 92.1 FL (80.0-97.0); Mean Platelet Volume 9.5 FL (9.5-12.2); Monocytes # (A) 0.51 X 10*3/uL (0.20-1.00); Monocytes % (A) 5.8 %; NRBC Per 100 WBC 0 X 10*3/uL (0.00-0.01); Neutrophils % (A) 77.6 %; Platelet Count 279 X 10*3/uL (140-440); RBC 4.04 X 10*6/uL (4.10-5.20); RDW 11.5 % (11.5-14.5); WBC 8.77 X 10*3/uL (4.50-10.00)
--- NOTE | 2023-04-26 11:40 | P.DS ---
Providers Date of admission: 04/25/23 12:35 Expected date of discharge: 04/26/23 Attending physician: Jah Titus Primary [facility] Course: Discharge diagnosis 1. Acute on chronic cholecystitis status post laparoscopic cholecystectomy Hospital course This is a 28-year-old female who presented with right upper quadrant abdominal pain. Had ultrasound showing gallbladder sludge. And mildly elevated ALT and AST. History of fatty liver disease. Patient status post laparoscopic cholecystectomy. Patient tolerated surgery well. Pain is controlled. She has been up and ambulating. Afebrile. She is tolerating diet. She is stable for discharge. Please refer to chart for any further details. Physician Ground [employer] Officer note has been reviewed by physician. Signing provider agrees with the documented findings, assessment, and plan of care. Patient Condition at Discharge: Stable Plan - Discharge Summary New Discharge Prescriptions: Continue Albuterol Nebulized [Ventolin Nebulized] 2.5 mg INHALATION RT-QID PRN PRN Reason: Shortness Of Breath Albuterol Sulfate [Albuterol Sulfate Hfa] 1 - 2 puff PO RT-Q4H PRN PRN Reason: Shortness Of Breath Ibuprofen [Motrin] 600 mg PO Q8HR PRN #20 tab PRN Reason: Pain Desvenlafaxine [Pristiq ER] 100 mg PO DAILY Levothyroxine Sodium [Synthroid] 137 mcg PO DAILY Dicyclomine [Bentyl] 10 mg PO QID PRN PRN Reason: Gi Upset Ondansetron Odt [Zofran ODT] 4 mg PO Q8HR PRN #10 tab PRN Reason: Nausea Montelukast [Singulair] 10 mg PO DAILY Propranolol [Inderal] 10 mg PO BID ALPRAZolam [Xanax] 1 mg PO BID PRN PRN Reason: Anxiety oxyCODONE HCL/ACETAMINOPHEN [Percocet 5-325 mg] 1 tab PO DAILY PRN PRN Reason: Pain Famotidine [Pepcid] 20 mg PO DAILY PRN PRN Reason: acid reflex Cholecalciferol [Vitamin D3 (25 Mcg = 1000 Iu)] 25 mcg PO DAILY Discontinued Ketorolac [Toradol] 10 mg PO Q6HR PRN #12 tab PRN Reason: Pain Discharge Medication List Albuterol Nebulized [Ventolin Nebulized] 2.5 mg INHALATION RT-QID PRN 05/18/22 [History] Dicyclomine [Bentyl] 10 mg PO QID PRN 05/18/22 [History] Levothyroxine Sodium [Synthroid] 137 mcg PO DAILY 05/18/22 [History] Albuterol Sulfate [Albuterol Sulfate Hfa] 1 - 2 puff PO RT-Q4H PRN 06/22/22 [History] Ibuprofen [Motrin] 600 mg PO Q8HR PRN #20 tab 12/13/22 [Rx] Ondansetron Odt [Zofran ODT] 4 mg PO Q8HR PRN #10 tab 12/13/22 [Rx] ALPRAZolam [Xanax] 1 mg PO BID PRN 03/10/23 [History] Desvenlafaxine [Pristiq ER] 100 mg PO DAILY 03/10/23 [History] Montelukast [Singulair] 10 mg PO DAILY 03/10/23 [History] Propranolol [Inderal] 10 mg PO BID 03/10/23 [History] Cholecalciferol [Vitamin D3 (25 Mcg = 1000 Iu)] 25 mcg PO DAILY 04/25/23 [History] Famotidine [Pepcid] 20 mg PO DAILY PRN 04/25/23 [History] oxyCODONE HCL/ACETAMINOPHEN [Percocet 5-325 mg] 1 tab PO DAILY PRN 04/25/23 [History] Follow up Appointment(s)/Referral(s): Tiffanie Graham MD [Primary Care Provider] - 1-2 days Jah Titus MD [Medical Doctor] - 1 Week Activity/Diet/Wound Care/Special Instructions: No driving while taking Percocet No lifting over 10 pounds You may shower. No soaking or tub baths for 2 weeks Very light activity until you are reevaluated at your follow up appointment with your surgeon Discharge Disposition: HOME SELF-CARE
[2023-04-26 11:43] LABS: BUN/Creat Ratio 12.17 Ratio (12.00-20.00); Blood Urea Nitrogen 7.3 mg/dL (9.0-27.0); Calcium 8.9 mg/dL (8.7-10.3); Carbon Dioxide 22.5 mmol/L (21.6-31.8); Chloride 107 mmol/L (96-109); Glucose 123 mg/dL (70-110); Potassium 3.9 mmol/L (3.5-5.5); Sodium 139 mmol/L (135-145)
[2023-04-26] MEDS ORDERED: LEVOFLOXACIN 500MG-D5W PMX 500 MG in DEXTROSE/WATER 1 100ML.BAG IVPB SCH (16:00)
== END 2023-04-26 12:14 | disposition home or self-care (01) ==
LOC: EC 09:58 → 6NMEDSUR 12:35
PROVIDERS: ADMIT Surgery; ATTEND Surgery
DX: K81.2 Acute cholecystitis with chronic cholecystitis (principal); K76.0 Fatty (change of) liver, not elsewhere classified; I34.1 Nonrheumatic mitral (valve) prolapse; E89.0 Postprocedural hypothyroidism; F32.A Depression, unspecified; F41.9 Anxiety disorder, unspecified; J45.909 Unspecified asthma, uncomplicated; Z79.890 Hormone replacement therapy; Z79.899 Other long term (current) drug therapy; Z88.0 Allergy status to penicillin; Z88.1 Allergy status to other antibiotic agents; Z88.2 Allergy status to sulfonamides; Z91.018 Allergy to other foods; Z91.048 Other nonmedicinal substance allergy status; Z87.19 Personal history of other diseases of the digestive system; Z90.49 Acquired absence of other specified parts of digestive tract
CPT/HCPCS: 96372 ×2; 96376; 96374; 96375; 99285; 36415; 81025; 88304; 80053; 80048; 82150; 83605; 83690; 85025 ×2; 85610; 85730; 76705; 47562; G0378 ×2; J2250; J0330; J2060; J2270; J1200; J1644 ×2; J1100; J2710; J2405; J2001; J3010; J3490; J1170 ×3; J1885 ×2; J2704; C9113 ×2; J0665

== ENCOUNTER 2023-05-13 14:52 | Observation (INO) | payer MEDICAID, OTHER ==
[2023-05-13] MEDS: ASPIRIN 81 MG PO STA (15:24)
[2023-05-13] MEDS: NITROGLYCERIN OINT 1 INCH/GM PACKET TOPICAL STA (15:25)
--- NOTE | 2023-05-13 15:29 | ED ---
General Adult HPI - General Chief complaint: Arrhythmia/Palpitations Stated complaint: Palpitation Time Seen by Provider: 05/13/23 14:54 Source: patient, RN notes reviewed Mode of arrival: ambulatory Limitations: no limitations - History of Present Illness Initial comments: Patient is a pleasant 28-year-old female present to the emergency department wit h concerns for heart rate. Patient has been having problems with her heart rate and was recently taken off propranolol, 10 mg. Patient's heart rate has been as high as 150, 160 at home. Patient did talk with on-call procedure analyst regarding this and was advised to come to the emergency department as they were concerned for A-fib. Patient does have episodes of chest discomfort lasting up to 15 se conds. Patient has some mild underlying chronic chest discomfort. Patient does have history of similar symptoms previously. Patient has known mitral valve prolapse, last echo was approximately a year ago. Patient states her heart rate has been labile. - Related Data Home Medications Medication Instructions Recorded Confirmed Albuterol Nebulized [Ventolin 2.5 mg INHALATION RT-QID PRN 05/18/22 04/25/23 Nebulized] Dicyclomine [Bentyl] 10 mg PO QID PRN 05/18/22 04/25/23 Levothyroxine Sodium [Synthroid] 137 mcg PO DAILY 05/18/22 04/25/23 Albuterol Sulfate [Albuterol 1 - 2 puff PO RT-Q4H PRN 06/22/22 04/25/23 Sulfate Hfa] ALPRAZolam [Xanax] 1 mg PO BID PRN 03/10/23 04/25/23 Desvenlafaxine [Pristiq ER] 100 mg PO DAILY 03/10/23 04/25/23 Montelukast [Singulair] 10 mg PO DAILY 03/10/23 04/25/23 Propranolol [Inderal] 10 mg PO BID 03/10/23 04/25/23 Cholecalciferol [Vitamin D3 (25 25 mcg PO DAILY 04/25/23 04/25/23 Mcg = 1000 Iu)] Famotidine [Pepcid] 20 mg PO DAILY PRN 04/25/23 04/25/23 oxyCODONE HCL/ACETAMINOPHEN 1 tab PO DAILY PRN 04/25/23 04/25/23 [Percocet 5-325 mg] Previous Rx's Medication Instructions Recorded Ibuprofen [Motrin] 600 mg PO Q8HR PRN #20 tab 12/13/22 Ondansetron Odt [Zofran ODT] 4 mg PO Q8HR PRN #10 tab 12/13/22 Allergies Allergy/AdvReac Type Severity Reaction Status Date / Time amoxicillin Allergy Rash/Hives Verified 05/13/23 15:02 nickel Allergy Rash/Hives Verified 05/13/23 15:02 sulfamethoxazole Allergy Rash/Hives Verified 05/13/23 15:02 [From ] trimethoprim [From ] Allergy Rash/Hives Verified 05/13/23 15:02 corn AdvReac Diarrhea Verified 05/13/23 15:02 Review of Systems ROS Statement: Those systems with pertinent positive or pertinent negative responses have been documented in the HPI. ROS Other: All systems not noted in ROS Statement are negative. Constitutional: Denies: fever Eyes: Denies: eye pain ENT: Denies: ear pain Respiratory: Reports: dyspnea (Associated with her symptoms). Denies: cough Cardiovascular: Reports: as per HPI, chest pain, palpitations Gastrointestinal: Denies: abdominal pain Genitourinary: Denies: dysuria Musculoskeletal: Denies: back pain Skin: Denies: rash Neurological: Denies: weakness Past Medical History Past Medical History: Asthma, Mitral Valve Prolapse (MVP), Thyroid Disorder Additional Past Medical History / Comment(s): colitis, mesentary peniculitis, G rave's Disease, MVP - sees procedure analyst, History of Any Multi-Drug Resistant Organisms: None Reported Past Surgical History: Appendectomy, Section Additional Past Surgical History / Comment(s): thyroidectomy 09/2017, Laparoscopic exam w/ cautery endometriosis 2012 Past Anesthesia/Blood Transfusion Reactions: No Reported Reaction Past Psychological History: Anxiety, Depression Smoking Status: Never smoker Past Alcohol Use History: Occasional, Rare Past Drug Use History: None Reported - Past Family History Mother Family Medical History: Asthma Father Family Medical History: Coronary Artery Disease (CAD), CVA/TIA Brother(s) Family Medical History: Asthma General Exam Limitations: no limitations General appearance: alert, in no apparent distress Head exam: Present: normocephalic Eye exam: Present: normal appearance Neck exam: Present: normal inspection Respiratory exam: Present: normal lung sounds bilaterally Cardiovascular Exam: Present: regular rate, normal rhythm, systolic murmur Expanded Peripheral pulses: 2+: Carotid (R), Carotid (L), Radial (R), Radial (L), Posterior Tibialis (R), Posterior Tibialis (L) GI/Abdominal exam: Present: soft. Absent: tenderness Extremities exam: Present: normal inspection. Absent: pedal edema, calf tenderness Neurological exam: Present: alert Psychiatric exam: Present: normal affect, normal mood Skin exam: Present: normal color Course Vital Signs 05/13/23 05/13/23 05/13/23 15:00 15:49 16:36 Temperature 97.8 F Pulse Rate 124 H 123 H 137 H Respiratory 18 20 18 Rate Blood Pressure 149/97 142/106 142/102 O2 Sat by Pulse 100 98 95 Oximetry 05/13/23 17:55 Temperature Pulse Rate 147 H Respiratory 20 Rate Blood Pressure 162/104 O2 Sat by Pulse 97 Oximetry EKG Findings - EKG Results: EKG: interpreted by ERMD (Left axis. LVH criteria), sinus rhythm, normal ST/T EKG shows: tachycardia Medical Decision Making - Medical Decision Making Repeat EKG interpreted by myself shows sinus tach with a rate of 153. Left axis. [place] 121. QRS 74. QT 278. QTc 364. LVH criteria. No acute ST change. Was pt. sent in by a medical professional or institution ([facility], PHOTO TECH, urgent care, hospital, or long term...) When possible be specific @ -Patient was advised by cardiology to come in Did you speak to anyone other than the patient for history (EMS, parent, family, police, friend...)? What history was obtained from this source @ -No Did you review nursing and triage notes (agree or disagree)? Why? @ -I reviewed and agree with nursing and triage notes Were old charts reviewed (outside hosp., previous admission, EMS record, old EK G, old radiological studies, urgent care reports/EKG's, long term records)? Report findings @ -Previous admission reviewed Differential Diagnosis (chest pain, altered mental status, abdominal pain women, abdominal pain men, vaginal bleeding, weakness, fever, dyspnea, syncope, headache, dizziness, GI bleed, back pain, seizure, CVA, palpatations, mental health, musculoskeletal)? @ -Differential Palpitations Ventricular arrhythmias, atrial arrhythmias, myocardial infarction, anemia, thyrotoxicosis, electrolyte imbalance, hypokalemia, pulmonary embolism, pulmonary disease, drugs, alcohol, anxiety, stress.... This is not meant to be an all-inclusive list. EKG interpreted by me (3pts min.). @ -As above X-rays interpreted by me (1pt min.). @ -Chest x-ray shows no acute process CT interpreted by me (1pt min.). @ -None done U/S interpreted by me (1pt. min.). @ -None done What testing was considered but not performed or refused? (CT, X-rays, U/S, labs)? Why? @ -None What meds were considered but not given or refused? Why? @ -None Did you discuss the management of the patient with other professionals (professionals i.e. , PA, PHOTO TECH, lab, RT, psych nurse, social work assistant, leather cutter, t eacher, disciplinary hearing officer, ed case manager)? Give summary @ -Case was discussed with Dr. Thompson who will admit covering Dr. Gonzalez Was smoking cessation discussed for >3mins.? @ -No Was critical care preformed (if so, how long)? @ -31 minutes critical care time Were there social determinants of health that impacted care today? How? (Homelessness, low income, unemployed, alcoholism, drug addiction, tr ansportation, low edu. Level, literacy, decrease access to med. care, fdc, rehab)? @ -No Was there de-escalation of care discussed even if they declined (Discuss DNR or withdrawal of care, Hospice)? DNR status @ -No What co-morbidities impacted this encounter? (DM, HTN, Smoking, COPD, CAD, Cancer, CVA, ARF, Chemo, Hep., AIDS, mental health diagnosis, sleep apnea, morbid obesity)? @ -None Was patient admitted / discharged? Hospital course, mention meds given and route, prescriptions, significant lab abnormalities, going to OR and other pertinent info. @ -Patient reevaluated and remains tachycardic with a heart rate 1 30-1 40. Unclear etiology at this time. No improvement with oral propranolol nor Ativan. Patient will be given a small dose of Cardizem and then be started on Cardizem drip. Case discussed with admitting physician. Admission orders written. Cardiology will be placed on consult. Undiagnosed new problem with uncertain prognosis? @ -No Drug Therapy requiring intensive monitoring for toxicity (Heparin, Nitro, Insulin, Cardizem)? @ -Patient will be started on Cardizem drip Were any procedures done? @ -No Diagnosis/symptom? @ -Tachycardia Acute, or Chronic, or Acute on Chronic? @ -Acute Uncomplicated (without systemic symptoms) or Complicated (systemic symptoms)? @ -Default Side effects of treatment? @ -No Exacerbation, Progression, or Severe Exacerbation? @ -No Poses a threat to life or bodily function? How? (Chest pain, USA, AR, pneumonia, PE, COPD, DKA, ARF, appy, cholecystitis, CVA, Diverticulitis, Homicidal, Suicidal, threat to staff... and all critical care pts) @ -No - Lab Data Result diagrams: 05/13/23 15:22 05/13/23 15:22 Lab Results 05/13/23 05/13/23 05/13/23 Range/Units 15:22 15:22 15:22 WBC 6.7 (3.8-10.6) k/uL RBC 4.42 (3.80-5.40) m/uL Hgb 14.5 (11.4-16.0) gm/dL Hct 41.6 (34.0-46.0) % MCV 94.2 (80.0-100.0) fL MCH 32.8 (25.0-35.0) pg MCHC 34.8 (31.0-37.0) g/dL RDW 12.0 (11.5-15.5) % Plt Count 290 (150-450) k/uL MPV 7.3 Neutrophils % 51 % Lymphocytes % 37 % Monocytes % 5 % Eosinophils % 3 % Basophils % 1 % Neutrophils # 3.4 (1.3-7.7) k/uL Lymphocytes # 2.5 (1.0-4.8) k/uL Monocytes # 0.4 (0-1.0) k/uL Eosinophils # 0.2 (0-0.7) k/uL Basophils # 0.1 (0-0.2) k/uL PT 10.3 (10.0-12.5) sec INR 0.9 (<1.2) APTT 23.9 (22.0-30.0) sec D-Dimer 0.31 (<0.60) mg/L FEU Sodium 141 (137-145) mmol/L Potassium 4.2 (3.5-5.1) mmol/L Chloride 107 (98-107) mmol/L Carbon Dioxide 26 (22-30) mmol/L Anion Gap 8 mmol/L BUN 12 (7-17) mg/dL Creatinine 0.63 (0.52-1.04) mg/dL Est GFR (CKD-EPI)AfAm >90 (>60 ml/min/1.73 sqM) Est GFR (CKD-EPI)NonAf >90 (>60 ml/min/1.73 sqM) Glucose 126 H (74-99) mg/dL Calcium 9.6 (8.4-10.2) mg/dL Magnesium 2.1 (1.6-2.3) mg/dL Total Bilirubin 0.4 (0.2-1.3) mg/dL AST 45 H (14-36) U/L ALT 65 H (4-34) U/L Alkaline Phosphatase 80 (38-126) U/L Troponin I (0.000-0.034) ng/mL Total Protein 7.6 (6.3-8.2) g/dL Albumin 4.6 (3.5-5.0) g/dL Amylase 63 (30-110) U/L Lipase 84 (23-300) U/L TSH 0.229 L (0.465-4.680) mIU/L Free T4 1.45 (0.78-2.19) ng/dL Free T3 pg/mL 4.1 (2.8-5.3) pg/ml 05/13/23 Range/Units 15:22 WBC (3.8-10.6) k/uL RBC (3.80-5.40) m/uL Hgb (11.4-16.0) gm/dL Hct (34.0-46.0) % MCV (80.0-100.0) fL MCH (25.0-35.0) pg MCHC (31.0-37.0) g/dL RDW (11.5-15.5) % Plt Count (150-450) k/uL MPV Neutrophils % % Lymphocytes % % Monocytes % % Eosinophils % % Basophils % % Neutrophils # (1.3-7.7) k/uL Lymphocytes # (1.0-4.8) k/uL Monocytes # (0-1.0) k/uL Eosinophils # (0-0.7) k/uL Basophils # (0-0.2) k/uL PT (10.0-12.5) sec INR (<1.2) APTT (22.0-30.0) sec D-Dimer (<0.60) mg/L FEU Sodium (137-145) mmol/L Potassium (3.5-5.1) mmol/L Chloride (98-107) mmol/L Carbon Dioxide (22-30) mmol/L Anion Gap mmol/L BUN (7-17) mg/dL Creatinine (0.52-1.04) mg/dL Est GFR (CKD-EPI)AfAm (>60 ml/min/1.73 sqM) Est GFR (CKD-EPI)NonAf (>60 ml/min/1.73 sqM) Glucose (74-99) mg/dL Calcium (8.4-10.2) mg/dL Magnesium (1.6-2.3) mg/dL Total Bilirubin (0.2-1.3) mg/dL AST (14-36) U/L ALT (4-34) U/L Alkaline Phosphatase (38-126) U/L Troponin I <0.012 (0.000-0.034) ng/mL Total Protein (6.3-8.2) g/dL Albumin (3.5-5.0) g/dL Amylase (30-110) U/L Lipase (23-300) U/L TSH (0.465-4.680) mIU/L Free T4 (0.78-2.19) ng/dL Free T3 pg/mL (2.8-5.3) pg/ml Critical Care Time Critical Care Time: Yes Total Critical Care Time: 31 Disposition Clinical Impression: Tachycardia Disposition: ADMITTED IP TO THIS [facility] Is patient prescribed a controlled substance at d/c from ED?: No Referrals: Tiffanie Graham MD [Primary Care Provider] - 1-2 days Time of Disposition: 18:41
[2023-05-13 15:43] LABS: Basophils # (A) 0.1 k/uL (0-0.2); Basophils % (A) 1 %; Eosinophils # (A) 0.2 k/uL (0-0.7); Eosinophils % (A) 3 %; HCT 41.6 % (34.0-46.0); HGB 14.5 gm/dL (11.4-16.0); Lymphocytes # (A) 2.5 k/uL (1.0-4.8); Lymphocytes % (A) 37 %; MCH 32.8 pg (25.0-35.0); MCHC 34.8 g/dL (31.0-37.0); MCV 94.2 fL (80.0-100.0); Mean Platelet Volume 7.3; Monocytes # (A) 0.4 k/uL (0-1.0); Monocytes % (A) 5 %; Neutrophils # (A) 3.4 k/uL (1.3-7.7); Neutrophils % (A) 51 %; Platelet Count 290 k/uL (150-450); RBC 4.42 m/uL (3.80-5.40); WBC 6.7 k/uL (3.8-10.6)
[2023-05-13 15:53] LABS: ALT 65 U/L (4-34); AST 45 U/L (14-36); African American GFR (CKD) >90 (>60 ml/min/1.73 sqM); Albumin 4.6 g/dL (3.5-5.0); Alkaline Phosphatase 80 U/L (38-126); Amylase 63 U/L (30-110); Anion Gap 8 mmol/L; Blood Urea Nitrogen 12 mg/dL (7-17); Calcium 9.6 mg/dL (8.4-10.2); Carbon Dioxide 26 mmol/L (22-30); Chloride 107 mmol/L (98-107); Glucose 126 mg/dL (74-99); Lipase 84 U/L (23-300); Magnesium 2.1 mg/dL (1.6-2.3); Non-African American GFR(CKD) >90 (>60 ml/min/1.73 sqM); Potassium 4.2 mmol/L (3.5-5.1); Sodium 141 mmol/L (137-145); Total Bilirubin 0.4 mg/dL (0.2-1.3); Total Protein 7.6 g/dL (6.3-8.2)
[2023-05-13 16:00] LABS: INR 0.9 (<1.2); Partial Thromboplastin Time 23.9 sec (22.0-30.0); Prothrombin Time 10.3 sec (10.0-12.5)
[2023-05-13 16:09] LABS: T4, Free (Free Thyroxine) 1.45 ng/dL (0.78-2.19)
--- NOTE | 2023-05-13 16:26 | XR ---
EXAMINATION TYPE: XR chest 2V DATE OF EXAM: 05/13/2023 3:59 PM CLINICAL INDICATION:Female, 28 years old with history of Chest Pain; [facility] COMPARISON: Chest radiographs from 03/28/2023. TECHNIQUE: XR chest 2V Frontal and lateral views of the chest. FINDINGS: Lungs/Pleura: There is no evidence of pleural effusion, focal consolidation, or pneumothorax. Pulmonary vascularity: Unremarkable. Heart/mediastinum: Cardiomediastinal silhouette is unremarkable. Musculoskeletal: No acute osseous pathology. IMPRESSION: No acute cardiopulmonary disease/process.
[2023-05-13] MEDS: PROPRANOLOL 10 MG TAB PO STA (16:38)
[2023-05-13] MEDS: LORazepam 2 MG/ML INJ IV STA (17:49)
[2023-05-13] MEDS: DILTIAZEM 125 MG in SODIUM CHLORIDE 0.9% 100 ML IV SCH (18:32)
[2023-05-13] MEDS: DILTIAZEM DRIP BOLUS FROM BAG 1 MG SOLN IV ONE (18:33)
[2023-05-13] MEDS ORDERED: NALOXONE 0.4 MG/ML 1 ML VIAL IV PRN (18:42)
[2023-05-13] MEDS ORDERED: ACETAMINOPHEN TAB 325 MG TAB PO PRN (18:42)
[2023-05-13] MEDS ORDERED: traMADol 50 MG TAB PO PRN (18:42)
[2023-05-13] MEDS: SODIUM CHLORIDE 0.9% 1,000 ML IV SCH (18:55)
[2023-05-13] MEDS: MORPHINE SULFATE 4 MG/ML SYRINGE IVP STA (19:33)
[2023-05-13] MEDS: FAMOTIDINE 20 MG TAB PO SCH (20:28)
[2023-05-14] MEDS ORDERED: ALPRAZolam 1 MG TAB PO PRN (04:27)
[2023-05-14] MEDS ORDERED: ALBUTEROL NEBULIZED 2.5 MG/3 ML INHALATION PRN (04:27)
--- NOTE | 2023-05-14 05:44 | P.HPIM ---
History of Present Illness H&P Date: 05/13/23 Chief Complaint: Palpitations 28-year-old female with history of Graves' disease status post thyroidectomy on thyroid supplementation Patient coming in for evaluation of tachycardia and shortness of breath She had a follow-up appointment with cardiology about a week ago, and due to her reporting feeling tired and weak along with reporting a low heart rate ranging between 50s and 60s. Her industrial furnace fabricator recommended that she comes off her daily dose of propranolol 10 mg which she did. Few days later she started noticing increasing her heart rate and over the past 2 days she has been having episodes of very fast heart rate at times above 150 bpm with feeling uneasy in the chest shortness of breath feeling extremely weak for which she decided to come in for evaluation today She denies any history of blood clots denies any recent history of travel. Over the past 2 months she spent some time at the hospital on couple separate episodes for abdominal pain that later she was diagnosed with gallbladder disease she underwent successful laparoscopic cholecystectomy about 2 to 3 weeks ago. Which she tolerated pretty well She otherwise denies any changes in vision or hearing denies any nausea vomiting denies any fevers or chills denies any GI bleeding Patient denies illicit drugs heavy alcohol or smoking Upon arrival to the ED she was found to be in sinus tachycardia with heart rate in the 150s she was given a bolus of Cardizem a one-time dose of propranolol and was started on Cardizem drip at time of my evaluation patient has been weaned off Cardizem drip and her heart rate is well under control in the range of 70s to 80s review of systems Pertinent positives as noted in HPI. All other systems were reviewed and are negative on exam Constitutional: No acute distress, conversant, pleasant Eyes: Anicteric sclerae, moist conjunctiva, Pupils equal round reactive to light ENMT: NC/AT Oropharynx clear, no erythema, or exudates Neck: Supple, no masses, or JVD No carotid bruits No thyromegaly Lungs: Clear to auscultation Clear to percussion Normal respiratory effort, no accessory muscle use Cardiovascular: Heart regular in rate and rhythm, No murmurs, gallops, or rubs No peripheral edema Abdominal: Soft Nontender, no guarding, rebound or rigidity Abdomen moving with respiration Normoactive bowel sounds No hepatomegaly, No splenomegaly Extremities: No digital cyanosis No clubbing Pedal pulses intact and symmetrical Radial pulses intact and symmetrical No calf tenderness Psychiatric: Alert and oriented to person, place and time Appropriate affect fair judgement Neuro Muscles Strength 5/5 in all 4 extremities Sensation to light touch grossly present throughout Cranial nerves II-XII grossly intact 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 industrial furnace fabricator, History of Any Multi-Drug Resistant Organisms: None Reported Past Surgical History: Appendectomy, Section Additional Past Surgical History / Comment(s): thyroidectomy 09/2017, [place] paroscopic exam w/ cautery endometriosis 2012 Past Anesthesia/Blood Transfusion Reactions: No Reported Reaction Past Psychological History: Anxiety, Depression Smoking Status: Never smoker Past Alcohol Use History: Occasional, Rare Past Drug Use History: None Reported - Past Family History Mother Family Medical History: Asthma Father Family Medical History: Coronary Artery Disease (CAD), CVA/TIA Brother(s) Family Medical History: Asthma Medications and Allergies Home Medications Medication Instructions Recorded Confirmed Type Albuterol Nebulized [Ventolin 2.5 mg INHALATION RT-QID PRN 05/18/22 05/13/23 History Nebulized] Dicyclomine [Bentyl] 10 mg PO QID PRN 05/18/22 05/13/23 History Levothyroxine Sodium [Synthroid] 137 mcg PO DAILY 05/18/22 05/13/23 History Albuterol Sulfate [Albuterol 1 - 2 puff INHALATION RT-Q4H PRN 06/22/22 05/13/23 History Sulfate Hfa] Ibuprofen [Motrin] 600 mg PO Q8HR PRN #20 tab 12/13/22 05/13/23 Rx Ondansetron Odt [Zofran ODT] 4 mg PO Q8HR PRN #10 tab 12/13/22 05/13/23 Rx ALPRAZolam [Xanax] 1 mg PO BID PRN 03/10/23 05/13/23 History Desvenlafaxine [Pristiq ER] 100 mg PO DAILY 03/10/23 05/13/23 History Montelukast [Singulair] 10 mg PO DAILY 03/10/23 05/13/23 History Cholecalciferol [Vitamin D3 (25 25 mcg PO DAILY 04/25/23 05/13/23 History Mcg = 1000 Iu)] Famotidine [Pepcid] 20 mg PO DAILY PRN 04/25/23 05/13/23 History oxyCODONE HCL/ACETAMINOPHEN 1 tab PO DAILY PRN 04/25/23 05/13/23 History [Percocet 5-325 mg] ARIPiprazole [Abilify] 3 mg PO DAILY 05/13/23 05/13/23 History Omeprazole 40 mg PO DAILY 05/13/23 05/13/23 History Allergies Allergy/AdvReac Type Severity Reaction Status Date / Time amoxicillin Allergy Rash/Hives Verified 05/13/23 15:02 nickel Allergy Rash/Hives Verified 05/13/23 15:02 sulfamethoxazole Allergy Rash/Hives Verified 05/13/23 15:02 [From ] trimethoprim [From ] Allergy Rash/Hives Verified 05/13/23 15:02 corn AdvReac Diarrhea Verified 05/13/23 15:02 Physical Exam Vitals: Vital Signs Temp Pulse Pulse Resp BP BP Pulse Ox 05/14/23 00:00 98 F 70 18 98/52 100 05/13/23 22:00 88 18 130/82 100 05/13/23 20:29 105 H 16 133/98 98 05/13/23 19:20 115 H 18 126/90 97 05/13/23 18:38 123 H 18 148/106 97 05/13/23 17:55 147 H 20 162/104 97 05/13/23 16:36 137 H 18 142/102 95 05/13/23 15:49 123 H 20 142/106 98 05/13/23 15:00 97.8 F 124 H 18 149/97 100 Intake and Output 05/13/23 05/13/23 05/14/23 14:59 22:59 06:59 Other: Weight 68.039 kg Results CBC & Chem 7: 05/13/23 15:22 05/13/23 15:22 Labs: Abnormal Lab Results - Last 24 Hours (Table) 05/13/23 Range/Units 15:22 Glucose 126 H (74-99) mg/dL AST 45 H (14-36) U/L ALT 65 H (4-34) U/L TSH 0.229 L (0.465-4.680) mIU/L Assessment and Plan Assessment: 28-year-old female with history of Graves' disease status post thyroidectomy, recent laparoscopic cholecystectomy done about 2 to 3 weeks ago coming in for palpitations reporting that she recently has discontinued her propranolol 10 mg daily about a week ago discussed case with ED doctor and accepted the admission for sinus tachycardia with heart rate above 150 for cardiology evaluation with anticipated length of stay less than 2 midnights Sinus tachycardia suspected secondary to rebound tachycardia from beta-farrukh withdrawal Patient was initiated on Cardizem drip in the ED this has been weaned off Troponin negative D-dimer negative Rest of her blood work overall unremarkable sodium 141 potassium 4.2 BUN 12 creatinine 0.6 White count 6.7 hemoglobin 14.5 unremarkable EKG showed sinus tachycardia Continue with propranolol 10 mg p.o. daily Check echocardiogram in the morning Cardiology consult Chronic conditions History of endometriosis Mitral valve prolapse Hypothyroid with history of Graves' disease status post thyroidectomy, on levothyroxine Free T4 and T3 are within normal limits. TSH is low Depression continue with home medication Pristiq Full code DVT prophylaxis heparin subcu 3 times daily GI prophylaxis Protonix 40 mg p.o. daily
[2023-05-14] MEDS: LEVOTHYROXINE 137 MCG TAB PO SCH (06:51)
[2023-05-14 08:15] LABS: Basophils % (A) 1 %; Eosinophils # (A) 0.2 k/uL (0-0.7); Eosinophils % (A) 4 %; HCT 41.5 % (34.0-46.0); HGB 13.8 gm/dL (11.4-16.0); Lymphocytes # (A) 2.1 k/uL (1.0-4.8); Lymphocytes % (A) 32 %; MCH 31.9 pg (25.0-35.0); MCHC 33.2 g/dL (31.0-37.0); Mean Platelet Volume 7.2; Monocytes # (A) 0.3 k/uL (0-1.0); Monocytes % (A) 5 %; Neutrophils # (A) 3.7 k/uL (1.3-7.7); Neutrophils % (A) 56 %; Platelet Count 273 k/uL (150-450); RBC 4.33 m/uL (3.80-5.40); RDW 12.1 % (11.5-15.5); WBC 6.5 k/uL (3.8-10.6)
[2023-05-14 08:18] LABS: ALT 60 U/L (4-34); AST 43 U/L (14-36); African American GFR (CKD) >90 (>60 ml/min/1.73 sqM); Alkaline Phosphatase 68 U/L (38-126); Anion Gap 9 mmol/L; Blood Urea Nitrogen 13 mg/dL (7-17); Calcium 8.9 mg/dL (8.4-10.2); Carbon Dioxide 21 mmol/L (22-30); Chloride 108 mmol/L (98-107); Glucose 114 mg/dL (74-99); Non-African American GFR(CKD) >90 (>60 ml/min/1.73 sqM); Potassium 4.2 mmol/L (3.5-5.1); Sodium 138 mmol/L (137-145); Total Bilirubin 0.4 mg/dL (0.2-1.3); Total Protein 6.9 g/dL (6.3-8.2)
[2023-05-14] MEDS: ONDANSETRON ODT 4 MG TAB PO PRN (08:24)
[2023-05-14] MEDS: KETOROLAC 15 MG/ML 1 ML VIAL IVP STA (08:24)
[2023-05-14] MEDS: MONTELUKAST 10 MG TAB PO SCH (08:25)
[2023-05-14] MEDS: DESVENLAFAXINE SUCCINATE 50 MG TAB.ER.24H PO SCH (08:26)
[2023-05-14] MEDS: PROPRANOLOL 10 MG TAB PO SCH (08:26)
[2023-05-14] MEDS ORDERED: oxyCODONE-APAP 5-325MG 1 EACH TAB PO PRN (08:36)
[2023-05-14] MEDS ORDERED: DICYCLOMINE 10 MG CAP PO PRN (08:36)
[2023-05-14] MEDS ORDERED: FAMOTIDINE 20 MG TAB PO PRN (08:36)
[2023-05-14] MEDS: PANTOPRAZOLE 40 MG TABLET PO SCH (08:59)
[2023-05-14] MEDS: ARIPiprazole 2 MG TAB PO SCH (09:08)
[2023-05-14] MEDS: HEPARIN SODIUM,PORCINE 5,000 UNIT/ML 1 ML VIAL SQ SCH (09:10)
[2023-05-14] MEDS: IBUPROFEN 600 MG TAB PO PRN (09:12)
[2023-05-14 09:32] VITALS: RESP 17; TEMP 97.8
--- NOTE | 2023-05-14 10:22 | P.DS ---
Providers Date of admission: 05/13/23 18:42 Expected date of discharge: 05/14/23 Attending physician: Mejia Ochoa MD Consults: 05/13/23 18:42 Consult Physician Urgent Consulting Provider: Keegan Ferguson Consult Reason/Comments: tachy Do you want consulting provider notified?: Yes Primary care physician: [facility] Course: 28-year-old female with PMH of Graves' disease status post thyroidectomy on thyroid supplementation, MVP, anxiety and depression presents to the ED for palpitations. Seen recently by her Book Trimmer for fatigue and weakness, found to be bradycardic with HR in the 50s and 60s, propranolol 10 mg PO QD was discontinued. Since then, experiencing HR as high as 150s resulting in chest tightness, SOB and weakness which prompted her to come to the ED. In the ED, she underwent extensive evaluation. BP 149/97, HR 124, RR 18, T 90 7.8F, 100% on RA. CBC, coag panel and CMP was done significant for glucose 126, AST 45, ALT 65. D-dimer 0.31. Troponin less than 0.0123. TSH 0.229, free T4 1 0.45, free T3 4 0.1. EKG showing sinus tachycardia with ventricular rate of 121. Chest x- ray unremarkable. Patient was started on a Cardizem drip and admitted for cardiology evaluation. 05/13 Patient was seen and examined. Complains of migraines. Cardizem drip discontinued around 3AM. EKG done this morning shows sinus rhythm with vent ricular rate of 81. Echocardiogram pending. CMP shows Cl 108, bicarb 21, glu 114, AST 443, ALT 60. Cardiology consulted, cleared the patient for discharge on Metoprolol 25 mg PO QD per RN. Follow up with PCP for workup of transaminitis and adjustments in Synthroid (subclinical hyperthyroidism) General: non toxic, no distress, appears at stated age Derm: warm, dry Head: atraumatic, normocephalic, symmetric Eyes: EOMI, no lid lag, anicteric sclera Mouth: no lip lesion, mucus membranes moist Cardiovascular: S1S2 reg, no murmur Lungs: CTA bilateral, no rhonchi, no rales , no accessory muscle use Ext: no gross muscle atrophy, no edema, no contractures Neuro: no focal neuro deficits Psych: Alert, oriented, appropriate affect Discharge Diagnosis: Sinus tachycardia Migraine Transaminitis Subclinical hyperthyroidism This complex discharge took 35 minutes to complete. Patient Condition at Discharge: Stable Plan - Discharge Summary New Discharge Prescriptions: New Metoprolol Succinate (ER) [Toprol XL] 25 mg PO DAILY #30 tab Continue Albuterol Nebulized [Ventolin Nebulized] 2.5 mg INHALATION RT-QID PRN PRN Reason: Shortness Of Breath Albuterol Sulfate [Albuterol Sulfate Hfa] 1 - 2 puff INHALATION RT-Q4H PRN PRN Reason: Shortness Of Breath Ibuprofen [Motrin] 600 mg PO Q8HR PRN #20 tab PRN Reason: Pain Desvenlafaxine [Pristiq ER] 100 mg PO DAILY Omeprazole 40 mg PO DAILY Levothyroxine Sodium [Synthroid] 137 mcg PO DAILY Dicyclomine [Bentyl] 10 mg PO QID PRN PRN Reason: Gi Upset Ondansetron Odt [Zofran ODT] 4 mg PO Q8HR PRN #10 tab PRN Reason: Nausea Montelukast [Singulair] 10 mg PO DAILY ALPRAZolam [Xanax] 1 mg PO BID PRN PRN Reason: Anxiety oxyCODONE HCL/ACETAMINOPHEN [Percocet 5-325 mg] 1 tab PO DAILY PRN PRN Reason: Pain Famotidine [Pepcid] 20 mg PO DAILY PRN PRN Reason: acid reflex Cholecalciferol [Vitamin D3 (25 Mcg = 1000 Iu)] 25 mcg PO DAILY ARIPiprazole [Abilify] 3 mg PO DAILY Discharge Medication List Albuterol Nebulized [Ventolin Nebulized] 2.5 mg INHALATION RT-QID PRN 05/18/22 [History] Dicyclomine [Bentyl] 10 mg PO QID PRN 05/18/22 [History] Levothyroxine Sodium [Synthroid] 137 mcg PO DAILY 05/18/22 [History] Albuterol Sulfate [Albuterol Sulfate Hfa] 1 - 2 puff INHALATION RT-Q4H PRN 06/22/22 [History] Ibuprofen [Motrin] 600 mg PO Q8HR PRN #20 tab 12/13/22 [Rx] Ondansetron Odt [Zofran ODT] 4 mg PO Q8HR PRN #10 tab 12/13/22 [Rx] ALPRAZolam [Xanax] 1 mg PO BID PRN 03/10/23 [History] Desvenlafaxine [Pristiq ER] 100 mg PO DAILY 03/10/23 [History] Montelukast [Singulair] 10 mg PO DAILY 03/10/23 [History] Cholecalciferol [Vitamin D3 (25 Mcg = 1000 Iu)] 25 mcg PO DAILY 04/25/23 [History] Famotidine [Pepcid] 20 mg PO DAILY PRN 04/25/23 [History] oxyCODONE HCL/ACETAMINOPHEN [Percocet 5-325 mg] 1 tab PO DAILY PRN 04/25/23 [History] ARIPiprazole [Abilify] 3 mg PO DAILY 05/13/23 [History] Omeprazole 40 mg PO DAILY 05/13/23 [History] Metoprolol Succinate (ER) [Toprol XL] 25 mg PO DAILY #30 tab 05/14/23 [Rx] Follow up Appointment(s)/Referral(s): Serena Cox MD [STAFF PHYSICIAN] - 1 Week Tiffanie Graham MD [Primary Care Provider] - 1-2 days Discharge Disposition: HOME SELF-CARE
--- NOTE | 2023-05-14 11:56 | P.CRDCN ---
History of Present Illness Consult date: 05/14/23 Requesting physician: Alvarez Alanis Reason for Consult (text): tachy Chief complaint: rapid heart beat History of present illness: This is a pleasant 28-year-old female patient who follows in the office with Dr. Chapman. She has a past history of Graves' disease, mitral valve prolapse and tachycardia over the last 4 years as well as recent lap ana. She previously followed with Dr. Booker in [place] but recently started seeing Dr. Chapman. She was previously on propranolol 10 mg p.o. 3 times daily and over the last several weeks weaned herself down to once a day. She was having issues with lower heart rates in the 50s and 60s and feeling fatigued and tired at home and the propranolol was stopped altogether on the seventh. Over the last several days she has noticed her heart rate progressively increase and was on her way to work here yesterday and her heart rate was in the 160s while she was driving. Upon presentation EKG shows sinus tachycardia. She was hypertensive but she has no history of hypertension and blood pressure this morning is somewhat soft. Labs showed a normal CBC, potassium 4.2, BUN 12, creatinine 0.63, mildly abnormal AST and ALT, troponins negative x 3. TSH is low however free T4 and free T3 are normal. She was restarted on her propranolol and her heart rate is back within normal limits. She is requesting to try a different medication as she does not like the side effects of the propranolol. She did have some mild chest discomfort when her heart rate was elevated but this has resolved. She also felt somewhat short of breath she has a history of asthma that has been fairly well-controlled. She felt somewhat dizzy and lightheaded but no syncope. She denies any orthopnea, PND or edema. She has had no further palpitations. 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 rate setter, History of Any Multi-Drug Resistant Organisms: None Reported Past Surgical History: Appendectomy, Section Additional Past Surgical History / Comment(s): thyroidectomy 09/2017, Laparoscopic exam w/ cautery endometriosis 2012 Past Anesthesia/Blood Transfusion Reactions: No Reported Reaction Past Psychological History: Anxiety, Depression Smoking Status: Never smoker Past Alcohol Use History: Occasional, Rare Past Drug Use History: None Reported - Past Family History Mother Family Medical History: Asthma Father Family Medical History: Coronary Artery Disease (CAD), CVA/TIA Brother(s) Family Medical History: Asthma Medications and Allergies Home Medications Medication Instructions Recorded Confirmed Type Albuterol Nebulized [Ventolin 2.5 mg INHALATION RT-QID PRN 05/18/22 05/13/23 History Nebulized] Dicyclomine [Bentyl] 10 mg PO QID PRN 05/18/22 05/13/23 History Levothyroxine Sodium [Synthroid] 137 mcg PO DAILY 05/18/22 05/13/23 History Albuterol Sulfate [Albuterol 1 - 2 puff INHALATION RT-Q4H PRN 06/22/22 05/13/23 History Sulfate Hfa] Ibuprofen [Motrin] 600 mg PO Q8HR PRN #20 tab 12/13/22 05/13/23 Rx Ondansetron Odt [Zofran ODT] 4 mg PO Q8HR PRN #10 tab 12/13/22 05/13/23 Rx ALPRAZolam [Xanax] 1 mg PO BID PRN 03/10/23 05/13/23 History Desvenlafaxine [Pristiq ER] 100 mg PO DAILY 03/10/23 05/13/23 History Montelukast [Singulair] 10 mg PO DAILY 03/10/23 05/13/23 History Cholecalciferol [Vitamin D3 (25 25 mcg PO DAILY 04/25/23 05/13/23 History Mcg = 1000 Iu)] Famotidine [Pepcid] 20 mg PO DAILY PRN 04/25/23 05/13/23 History oxyCODONE HCL/ACETAMINOPHEN 1 tab PO DAILY PRN 04/25/23 05/13/23 History [Percocet 5-325 mg] ARIPiprazole [Abilify] 3 mg PO DAILY 05/13/23 05/13/23 History Omeprazole 40 mg PO DAILY 05/13/23 05/13/23 History Metoprolol Succinate (ER) [Toprol 25 mg PO DAILY #30 tab 05/14/23 Rx XL] Allergies Allergy/AdvReac Type Severity Reaction Status Date / Time amoxicillin Allergy Rash/Hives Verified 05/13/23 15:02 nickel Allergy Rash/Hives Verified 05/13/23 15:02 sulfamethoxazole Allergy Rash/Hives Verified 05/13/23 15:02 [From ] trimethoprim [From ] Allergy Rash/Hives Verified 05/13/23 15:02 corn AdvReac Diarrhea Verified 05/13/23 15:02 Physical Exam Vitals: Vital Signs Temp Pulse Pulse Resp BP BP Pulse Ox 05/14/23 08:00 97.8 F 91 17 116/73 98 05/14/23 04:00 72 18 110/71 99 05/14/23 00:00 98 F 70 18 98/52 100 05/13/23 22:00 88 18 130/82 100 05/13/23 20:29 105 H 16 133/98 98 05/13/23 19:20 115 H 18 126/90 97 05/13/23 18:38 123 H 18 148/106 97 05/13/23 17:55 147 H 20 162/104 97 05/13/23 16:36 137 H 18 142/102 95 05/13/23 15:49 123 H 20 142/106 98 05/13/23 15:00 97.8 F 124 H 18 149/97 100 Intake and Output 05/13/23 05/14/23 05/14/23 22:59 06:59 14:59 Intake Total 120 Balance 120 Intake: Oral 120 Other: Weight 68.039 kg 68.039 kg PHYSICAL EXAMINATION: This is a 28-year-old female in no apparent distress at the time of my examination. VITAL SIGNS: Reviewed. HEENT: Head is atraumatic, normocephalic. Pupils are equal, round. Sclerae anicteric. Conjunctivae are clear. Mucous membranes of the mouth are moist. Neck is supple. [There is no elevated jugular venous pressure]. No carotid bruit is heard. CHEST EXAMINATION:[ Clear to auscultation bilaterally. No wheezes rales or rhonchi. Respirations even and nonlabored.] HEART EXAMINATION: [ Heart regular, positive S1 and S2. No S3. No S4. No clicks, rubs or murmurs. ] ABDOMEN: Soft, nontender. Bowel sounds are heard. No organomegaly noted. EXTREMITIES:[ 2+ peripheral pulses with no evidence of peripheral edema and no calf tenderness noted]. NEUROLOGIC EXAMINATION: Patient is awake, alert and oriented x3. Results 05/14/23 07:01 05/14/23 07:01 Cardiac Enzymes 05/13/23 05/13/23 05/13/23 Range/Units 15:22 15:22 21:17 AST 45 H (14-36) U/L Troponin I <0.012 <0.012 (0.000-0.034) ng/mL 05/13/23 05/14/23 Range/Units 23:41 07:01 AST 43 H (14-36) U/L Troponin I <0.012 (0.000-0.034) ng/mL Coagulation 05/13/23 Range/Units 15:22 PT 10.3 (10.0-12.5) sec APTT 23.9 (22.0-30.0) sec CBC 05/13/23 05/14/23 Range/Units 15:22 07:01 WBC 6.7 6.5 (3.8-10.6) k/uL RBC 4.42 4.33 (3.80-5.40) m/uL Hgb 14.5 13.8 (11.4-16.0) gm/dL Hct 41.6 41.5 (34.0-46.0) % Plt Count 290 273 (150-450) k/uL Comprehensive Metabolic Panel 05/13/23 05/14/23 Range/Units 15:22 07:01 Sodium 141 138 (137-145) mmol/L Potassium 4.2 4.2 (3.5-5.1) mmol/L Chloride 107 108 H (98-107) mmol/L Carbon Dioxide 26 21 L (22-30) mmol/L BUN 12 13 (7-17) mg/dL Creatinine 0.63 0.53 (0.52-1.04) mg/dL Glucose 126 H 114 H (74-99) mg/dL Calcium 9.6 8.9 (8.4-10.2) mg/dL AST 45 H 43 H (14-36) U/L ALT 65 H 60 H (4-34) U/L Alkaline Phosphatase 80 68 (38-126) U/L Total Protein 7.6 6.9 (6.3-8.2) g/dL Albumin 4.6 4.0 (3.5-5.0) g/dL Current Medications Generic Name Dose Route Start Last Admin Trade Name Freq PRN Reason Stop Dose Admin Acetaminophen 650 mg 05/13/23 18:42 Acetaminophen Tab 325 Mg Tab PO Q6HR PRN Mild Pain or Fever > 100.5 Albuterol Sulfate 2.5 mg 05/14/23 04:27 Albuterol Nebulized 2.5 Mg/3 Ml INHALATION RT-QID PRN Shortness Of Breath Alprazolam 1 mg 05/14/23 04:27 Alprazolam 1 Mg Tab PO BID PRN Anxiety Aripiprazole 3 mg 05/14/23 09:00 05/14/23 09:08 Aripiprazole 2 Mg Tab PO 3 mg DAILY [place] Administration Desvenlafaxine Succinate 100 mg 05/14/23 09:00 05/14/23 08:26 Desvenlafaxine Succinate 50 Mg Tab.Er.24h PO 100 mg DAILY [place] Administration Dicyclomine HCl 10 mg 05/14/23 08:36 Dicyclomine 10 Mg Cap PO QID PRN GI Upset Famotidine 20 mg 05/13/23 21:00 05/14/23 08:25 Famotidine 20 Mg Tab PO 20 mg BID [place] Administration Famotidine 20 mg 05/14/23 08:36 Famotidine 20 Mg Tab PO DAILY PRN acid reflex Heparin Sodium (Porcine) 5,000 unit 05/14/23 08:00 05/14/23 09:10 Heparin Sodium,Porcine 5,000 Unit/Ml 1 Ml Vial SQ Not Given Q8HR [place] Sodium Chloride 1,000 mls @ 75 mls/hr 05/13/23 18:45 05/13/23 18:55 Saline 0.9% IV 75 mls/hr .[id number] [place] Administration Ibuprofen 600 mg 05/14/23 04:26 05/14/23 09:12 Ibuprofen 600 Mg Tab PO 600 mg TID PRN Administration Pain Ketorolac Tromethamine 15 mg 05/14/23 12:00 Ketorolac 15 Mg/Ml 1 Ml Vial IVP 05/19/23 08:16 Q6HR [place] Levothyroxine Sodium 137 mcg 05/14/23 07:00 05/14/23 06:51 Levothyroxine 137 Mcg Tab PO 137 mcg DAILY@0700 [place] Administration Metoprolol Succinate 25 mg 05/15/23 09:00 Metoprolol Succinate (Er) 25 Mg Tab.Er.24h PO DAILY [place] Montelukast Sodium 10 mg 05/14/23 09:00 05/14/23 08:25 Montelukast 10 Mg Tab PO 10 mg DAILY [place] Administration Naloxone HCl 0.2 mg 05/13/23 18:42 Naloxone 0.4 Mg/Ml 1 Ml Vial IV Q2M PRN Opioid Reversal Ondansetron HCl 4 mg 05/14/23 04:27 05/14/23 08:24 Ondansetron Odt 4 Mg Tab PO 4 mg Q8HR PRN Administration Nausea Oxycodone/Acetaminophen 1 each 05/14/23 08:36 Oxycodone-Apap 5-325mg 1 Each Tab PO DAILY PRN Pain Pantoprazole Sodium 40 mg 05/14/23 09:00 05/14/23 08:59 Pantoprazole 40 Mg Tablet PO Not Given DAILY [place] Tramadol HCl 50 mg 05/13/23 18:42 Tramadol 50 Mg Tab PO Q6H PRN Moderate Pain (Scale 4 to 6) Intake and Output 05/13/23 05/14/23 05/14/23 22:59 06:59 14:59 Intake Total 120 Balance 120 Intake: Oral 120 Other: Weight 68.039 kg 68.039 kg 05/14/23 07:01 05/14/23 07:01 EKG Interpretations (text) Sinus tachycardia Assessment and Plan Assessment: #1 sinus tachycardia #2 Graves' disease status post thyroidectomy, maintained on levothyroxine #3 history of mitral valve prolapse #4 asthma #5 depression Plan: From cardiology's perspective we will discontinue propranolol and try the patient on metoprolol succinate 25 mg p.o. daily. She may be discharged home. She will follow-up with Dr. Chapman in the office. RN SURGICAL note has been reviewed, I agree with a documented findings and plan of care. Patient was seen and examined.
[2023-05-14] MEDS ORDERED: KETOROLAC 15 MG/ML 1 ML VIAL IVP SCH (12:00)
[2023-05-14] MEDS ORDERED: METOPROLOL SUCCINATE (ER) 25 MG TAB.ER.24H PO SCH (12:00)
[2023-05-14 12:17] VITALS: BP 123/88; PULSE 79
== END 2023-05-14 11:55 | disposition home or self-care (01) ==
LOC: EC 14:52 → SUPCPDRO 14:52 → 3SCARD 18:42
PROVIDERS: ADMIT Student in an Organized Health Care Education/Training Program; ATTEND Student in an Organized Health Care Education/Training Program
DX: R00.0 Tachycardia, unspecified (principal); R74.01 Elevation of levels of liver transaminase levels; G43.909 Migraine, unspecified, not intractable, without status migrainosus; E89.0 Postprocedural hypothyroidism; I34.1 Nonrheumatic mitral (valve) prolapse; Z79.899 Other long term (current) drug therapy; Z88.0 Allergy status to penicillin; Z88.2 Allergy status to sulfonamides; Z88.8 Allergy status to other drugs, medicaments and biological substances; Z79.890 Hormone replacement therapy; Z82.49 Family history of ischemic heart disease and other diseases of the circulatory system
CPT/HCPCS: 96365; 96367; 96375; 99285; 36415; 93005; 85379; 84439; 84481; 80053 ×2; 82150; 83690; 83735; 84443; 84484; 85025 ×2; 85610; 85730; 71046; G0378 ×2; J2060; J2270; J1885

== ENCOUNTER 2023-05-17 17:25 | Emergency (ER) | payer MEDICAID, OTHER ==
[2023-05-17 17:58] VITALS: TEMP 98.3
[2023-05-17] MEDS: KETOROLAC 15 MG/ML 1 ML VIAL IVP STA (18:50)
[2023-05-17 18:51] LABS: Basophils # (A) 0.1 k/uL (0-0.2); Basophils % (A) 1 %; Eosinophils # (A) 0.3 k/uL (0-0.7); Eosinophils % (A) 4 %; HCT 42.8 % (34.0-46.0); HGB 14.4 gm/dL (11.4-16.0); Lymphocytes # (A) 2.8 k/uL (1.0-4.8); Lymphocytes % (A) 37 %; MCH 31.7 pg (25.0-35.0); MCHC 33.5 g/dL (31.0-37.0); MCV 94.6 fL (80.0-100.0); Mean Platelet Volume 7.5; Monocytes # (A) 0.4 k/uL (0-1.0); Monocytes % (A) 5 %; Neutrophils # (A) 3.9 k/uL (1.3-7.7); Neutrophils % (A) 52 %; Platelet Count 276 k/uL (150-450); RBC 4.53 m/uL (3.80-5.40); RDW 11.9 % (11.5-15.5); WBC 7.5 k/uL (3.8-10.6)
[2023-05-17] MEDS: MORPHINE SULFATE 2 MG/ML SYRINGE IVP ONE (18:52)
[2023-05-17 19:04] LABS: ALT 77 U/L (4-34); AST 61 U/L (14-36); African American GFR (CKD) >90 (>60 ml/min/1.73 sqM); Albumin 4.9 g/dL (3.5-5.0); Alkaline Phosphatase 84 U/L (38-126); Anion Gap 11 mmol/L; Blood Urea Nitrogen 15 mg/dL (7-17); Calcium 9.4 mg/dL (8.4-10.2); Carbon Dioxide 22 mmol/L (22-30); Chloride 106 mmol/L (98-107); Glucose 90 mg/dL (74-99); Non-African American GFR(CKD) >90 (>60 ml/min/1.73 sqM); Sodium 139 mmol/L (137-145); Total Bilirubin 0.8 mg/dL (0.2-1.3); Total Protein 8.2 g/dL (6.3-8.2)
[2023-05-17 19:16] LABS: Potassium 4.7 mmol/L (3.5-5.1)
[2023-05-17 19:21] LABS: Appearance,Urine Clear (Clear); Bilirubin,Urine Negative (Negative); Blood,Urine Negative (Negative); Color,Urine Colorless; Glucose,Urine (UA) Negative (Negative); Ketones,Urine Negative (Negative); Leukocyte Esterase,Urine Negative (Negative); Nitrite,Urine Negative (Negative); Protein,Urine Negative (Negative); Specific Gravity,Urine 1.006 (1.001-1.035); Urobilinogen,Urine <2.0 mg/dL (<2.0)
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
[2023-05-17] MEDS: MORPHINE SULFATE 4 MG/ML SYRINGE IVP STA (20:26)
--- NOTE | 2023-05-17 20:46 | CT ---
EXAMINATION TYPE: CT abdomen pelvis wo con CT DLP: 464.3 mGycm, Automated exposure control for dose reduction was used. DATE OF EXAM: 05/17/2023 6:44 PM COMPARISON: CT with contrast 03/28/2023 CLINICAL INDICATION:Female, 28 years old with history of flank pain, hx kidney stones; Flank pain, Hx of renal stones. TECHNIQUE: Axial CT of the abdomen and pelvis. Sagittal and coronal reformats were created on a [employer] workstation. Contrast used: mL of , (none if empty) Oral contrast used: without Oral Contrast (none if empty) FINDINGS: Exam is limited without contrast. LOWER CHEST: Unremarkable ABDOMEN LIVER: Diffusely hypoattenuating parenchyma compatible with moderate steatosis. Liver is mildly promi nent with the right lobe measuring up to 16.3 cm. Small patch of slightly higher attenuation in the l iver near the gallbladder fossa is likely focal fatty sparing.. GALLBLADDER AND BILE DUCTS: The gallbladder is surgically absent. Biliary tree does not appear pathol ogically dilated. PANCREAS: Unremarkable. SPLEEN: Unremarkable. ADRENAL GLANDS: Unremarkable. KIDNEYS AND URETERS: A couple punctate calculi are seen within the midportion of the right kidney. No sizable renal calculi are seen on the left. Bilaterally, there is mild prominence of the renal pelve s with transition to normal caliber at the UPJ, which is similar to previous. No visible ureteral ruel culi or ureterectasis. PELVIS BLADDER: Unremarkable REPRODUCTIVE: Uterus and adnexal regions appear grossly unremarkable, though not well assessed by CT. ABDOMEN & PELVIS STOMACH AND BOWEL: Stomach and small bowel are nondistended, no evidence of obstruction. Appendix n ot seen, likely surgically absent. There is mild to moderate stool throughout the colon. Some segment s are nondistended and not well assessed. However no clearly acute focal abnormality is seen. PERITONEUM/RETROPERITONEUM: Normal VASCULATURE: Aorta and major branches are grossly unremarkable. No AAA. LYMPH NODES: No gross evidence for lymphadenopathy. Mild haziness of the abdominal mesentery with a f ew mildly prominent but nonenlarged nodes seen; appearance is similar to before and likely reflects p revious inflammatory process.. No enlarged by CT criteria lymph nodes are otherwise seen. SOFT TISSUE/ABDOMINAL WALL: Small nodular foci of increased attenuation within the right anterior abd ominal wall likely sequela of previous granulomatous disease and/or medication injections. Tiny fat-c ontaining umbilical hernia. MUSCULOSKELETAL: No acute osseous abnormalities. Mild degenerative changes. IMPRESSION: 1. Punctate right renal calculi. 2. No definite ureteral calculi or hydroureteronephrosis bilaterally. 3. Mild prominence of the renal pelves which might indicate mild chronic UPJ stenosis. 4. Moderate hepatic steatosis and mild hepatomegaly.
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
[2023-05-17 21:44] VITALS: BP 137/95; PULSE 92; RESP 18
== END 2023-05-17 21:40 | disposition home or self-care (01) ==
LOC: EC 17:25
DX: S00.512A Abrasion of oral cavity, initial encounter (principal); R10.9 Unspecified abdominal pain; Z88.0 Allergy status to penicillin; Z88.2 Allergy status to sulfonamides; Z88.1 Allergy status to other antibiotic agents; Z91.09 Other allergy status, other than to drugs and biological substances; Y04.0XXA Assault by unarmed brawl or fight, initial encounter
CPT/HCPCS: 36415; 80053; 85025; 81003; 70110; 74176; 99285; 96374; 96375; 96376; J2270 ×2; J1885

== ENCOUNTER 2023-05-26 13:19 | Emergency (ER) | payer MEDICAID, OTHER ==
[2023-05-26 13:30] VITALS: TEMP 98.2
--- NOTE | 2023-05-26 13:51 | ED ---
Recheck HPI - General Chief Complaint: Recheck/Abnormal Lab/Rx Stated Complaint: Abn Labs Time Seen by Provider: 05/26/23 13:33 Source: patient, RN notes reviewed, old records reviewed Mode of arrival: ambulatory Limitations: no limitations - History of Present Illness Initial Comments: This is a 28-year-old female to the ER for evaluation pain chronic pain. Patient is currently back pain flank pain with nausea vomiting pain is severe. Patient has multiple ER visits and inpatient hospitalizations for such pain without acute cause. Patient states having difficulty with urination colicky crampy spasmodic flank pain and back pain MD Complaint: medication refill request, other (Severe uncontrolled pain) -: month(s) Returns Today for: persistent/worsening pain related to initial visit Symptoms Since Prior Visit: worsening pain Context: called for abnormal lab result, ran out of medication Treatments Prior to Arrival: Given Pain Meds on - Related Data Home Medications Medication Instructions Recorded Confirmed Albuterol Nebulized [Ventolin 2.5 mg INHALATION RT-QID PRN 05/18/22 05/13/23 Nebulized] Dicyclomine [Bentyl] 10 mg PO QID PRN 05/18/22 05/13/23 Levothyroxine Sodium [Synthroid] 137 mcg PO DAILY 05/18/22 05/13/23 Albuterol Sulfate [Albuterol 1 - 2 puff INHALATION RT-Q4H PRN 06/22/22 05/13/23 Sulfate Hfa] ALPRAZolam [Xanax] 1 mg PO BID PRN 03/10/23 05/13/23 Desvenlafaxine [Pristiq ER] 100 mg PO DAILY 03/10/23 05/13/23 Montelukast [Singulair] 10 mg PO DAILY 03/10/23 05/13/23 Cholecalciferol [Vitamin D3 (25 25 mcg PO DAILY 04/25/23 05/13/23 Mcg = 1000 Iu)] Famotidine [Pepcid] 20 mg PO DAILY PRN 04/25/23 05/13/23 oxyCODONE HCL/ACETAMINOPHEN 1 tab PO DAILY PRN 04/25/23 05/13/23 [Percocet 5-325 mg] ARIPiprazole [Abilify] 3 mg PO DAILY 05/13/23 05/13/23 Omeprazole 40 mg PO DAILY 05/13/23 05/13/23 Previous Rx's Medication Instructions Recorded Ibuprofen [Motrin] 600 mg PO Q8HR PRN #20 tab 12/13/22 Ondansetron Odt [Zofran ODT] 4 mg PO Q8HR PRN #10 tab 12/13/22 Metoprolol Succinate (ER) [Toprol 25 mg PO DAILY #30 tab 05/14/23 XL] Allergies Allergy/AdvReac Type Severity Reaction Status Date / Time amoxicillin Allergy Rash/Hives Verified 05/26/23 13:24 nickel Allergy Rash/Hives Verified 05/26/23 13:24 sulfamethoxazole Allergy Rash/Hives Verified 05/26/23 13:24 [From ] trimethoprim [From ] Allergy Rash/Hives Verified 05/26/23 13:24 corn AdvReac Diarrhea Verified 05/26/23 13:24 Review of Systems ROS Statement: Those systems with pertinent positive or pertinent negative responses have been documented in the HPI. ROS Other: All systems not noted in ROS Statement are negative. 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, History of Any Multi-Drug Resistant Organisms: None Reported Past Surgical History: Appendectomy, Section Additional Past Surgical History / Comment(s): thyroidectomy 09/2017, [place] paroscopic exam w/ cautery endometriosis 2012 Past Anesthesia/Blood Transfusion Reactions: No Reported Reaction Past Psychological History: Anxiety, Depression Smoking Status: Never smoker Past Alcohol Use History: Occasional, Rare Past Drug Use History: None Reported - Past Family History Mother Family Medical History: Asthma Father Family Medical History: Coronary Artery Disease (CAD), CVA/TIA Brother(s) Family Medical History: Asthma General Exam Limitations: no limitations General appearance: alert, in no apparent distress, anxious Head exam: Present: atraumatic, normocephalic, normal inspection Eye exam: Present: normal appearance, PERRL, EOMI. Absent: scleral icterus, conjunctival injection, periorbital swelling ENT exam: Present: normal exam, mucous membranes moist Neck exam: Present: normal inspection. Absent: tenderness, meningismus, lymphadenopathy Respiratory exam: Present: normal lung sounds bilaterally. Absent: respiratory distress, wheezes, rales, rhonchi, stridor Cardiovascular Exam: Present: regular rate, normal rhythm, normal heart sounds. Absent: systolic murmur, diastolic murmur, rubs, gallop, clicks GI/Abdominal exam: Present: soft, normal bowel sounds. Absent: distended, t enderness, guarding, rebound, rigid Extremities exam: Present: normal inspection, full ROM, normal capillary refill. Absent: tenderness, pedal edema, joint swelling, calf tenderness Back exam: Present: normal inspection Neurological exam: Present: alert, oriented X3, CN II-XII intact Psychiatric exam: Present: normal affect, normal mood Skin exam: Present: warm, dry, intact, normal color. Absent: rash Course Vital Signs 05/26/23 05/26/23 05/26/23 13:22 15:45 16:15 Temperature 98.2 F Pulse Rate 135 H Respiratory 20 Rate Blood Pressure 180/148 158/121 141/100 O2 Sat by Pulse 98 Oximetry 05/26/23 05/26/23 16:41 16:55 Temperature 98.2 F Pulse Rate 98 Respiratory 18 Rate Blood Pressure 144/99 146/96 O2 Sat by Pulse 97 Oximetry - Reevaluation(s) Reevaluation #1: Medical records reviewed Reevaluation #2: Patient's pain is currently controlled Reevaluation #3: Patient informed of results questions answered Reevaluation #4: Was pt. sent in by a medical professional or institution (, PA, STEEL GRINDER, urgent care, hospital, or longterm...) When possible be specific @ -no Did you speak to anyone other than the patient for history (EMS, parent, family, police, friend...)? What history was obtained from this source @ -no Did you review nursing and triage notes (agree or disagree)? Why? @ -agree Are old charts reviewed (outside hosp., previous admission, EMS record, old EKG, old radiological studies, urgent care reports/EKG's, longterm records)? Report findings @ -yes Differential Diagnosis (chest pain, altered mental status, abdominal pain women, abdominal pain men, vaginal bleeding, weakness, fever, dyspnea, syncope, he adache, dizziness, GI bleed, back pain, seizure, CVA, palpatations, mental health, musculoskeletal)? @ -prior EKG interpreted by me (3pts min.). @ -no X-rays interpreted by me (1pt min.). @ -no CT interpreted by me (1pt min.). @ -no U/S interpreted by me (1pt. min.). @ -Is positive for bilateral hydronephrosis What testing was considered but not performed or refused? (CT, X-rays, U/S, labs)? Why? @ -none What meds were considered but not given or refused? Why? @ -none Did you discuss the management of the patient with other professionals (professionals i.e. , PA, STEEL GRINDER, lab, RT, psych nurse, social work supervisor, hat band attacher, teacher, property portfolio officer, case management manager)? Give summary @ -no Was smoking cessation discussed for >3mins.? @ -no Was critical care preformed (if so, how long)? @ -no Were there social determinants of health that impacted care today? How? (Homelessness, low income, unemployed, alcoholism, drug addiction, transportation, low edu. Level, literacy, decrease access to med. care, skilled nursing, rehab)? @ -none Was there de-escalation of care discussed even if they declined (Discuss DNR or withdrawal of care, Hospice)? DNR status @ -no What co-morbidities impacted this encounter? (DM, HTN, Smoking, COPD, CAD, Cancer, CVA, ARF, Chemo, Hep., AIDS, mental health diagnosis, sleep apnea, morbid obesity)? @ -none Was patient admitted / discharged? Hospital course, mention meds given and route, prescriptions, significant lab abnormalities, going to OR and other pertinent info. @ - 28 female to ER for evaluation of severe chronic pain. Patient's pain is well-controlled here in the ER and she can be discharged home Discharge Undiagnosed new problem with uncertain prognosis? @ -no Drug Therapy requiring intensive monitoring for toxicity (Heparin, Nitro, Insulin, Cardizem)? @ -no Were any procedures done? @ -no Diagnosis/symptom? @ -Renal colic with chronic pain Acute, or Chronic, or Acute on Chronic? @ -Acute Uncomplicated (without systemic symptoms) or Complicated (systemic symptoms)? @ -Complicated Side effects of treatment? @ -no Exacerbation, Progression, or Severe Exacerbation? @ -exacerbation Poses a threat to life or bodily function? How? (Chest pain, [place], [place], pneumonia, PE, COPD, DKA, ARF, appy, cholecystitis, CVA, Diverticulitis, Homicidal, Suici marco, threat to staff... and all critical care pts) @ -no Medical Decision Making - Medical Decision Making 28 female to ER for evaluation of severe chronic pain. Patient's pain is well- controlled here in the ER and she can be discharged home - Lab Data Result diagrams: 05/26/23 13:57 05/26/23 13:57 Lab Results 05/26/23 05/26/23 05/26/23 Range/Units 13:57 13:57 13:57 WBC 7.5 (3.8-10.6) k/uL RBC 4.36 (3.80-5.40) m/uL Hgb 14.2 (11.4-16.0) gm/dL Hct 41.0 (34.0-46.0) % MCV 94.0 (80.0-100.0) fL MCH 32.6 (25.0-35.0) pg MCHC 34.7 (31.0-37.0) g/dL RDW 12.3 (11.5-15.5) % Plt Count 240 (150-450) k/uL MPV 7.5 Neutrophils % 60 % Lymphocytes % 29 % Monocytes % 5 % Eosinophils % 3 % Basophils % 0 % Neutrophils # 4.5 (1.3-7.7) k/uL Lymphocytes # 2.1 (1.0-4.8) k/uL Monocytes # 0.4 (0-1.0) k/uL Eosinophils # 0.2 (0-0.7) k/uL Basophils # 0.0 (0-0.2) k/uL Sodium 139 (137-145) mmol/L Potassium 4.7 (3.5-5.1) mmol/L Chloride 106 (98-107) mmol/L Carbon Dioxide 26 (22-30) mmol/L Anion Gap 7 mmol/L BUN 12 (7-17) mg/dL Creatinine 0.56 (0.52-1.04) mg/dL Est GFR (CKD-EPI)AfAm >90 (>60 ml/min/1.73 sqM) Est GFR (CKD-EPI)NonAf >90 (>60 ml/min/1.73 sqM) Glucose 87 (74-99) mg/dL Calcium 9.0 (8.4-10.2) mg/dL Phosphorus 2.9 (2.5-4.5) mg/dL Magnesium 1.9 (1.6-2.3) mg/dL Total Bilirubin 0.8 (0.2-1.3) mg/dL AST 68 H (14-36) U/L ALT 95 H (4-34) U/L Alkaline Phosphatase 64 (38-126) U/L Total Protein 7.7 (6.3-8.2) g/dL Albumin 4.6 (3.5-5.0) g/dL Amylase 50 (30-110) U/L Lipase 45 (23-300) U/L Urine Color Colorless Urine Appearance Clear (Clear) Urine pH 7.0 (5.0-8.0) Ur Specific [place] 1.009 (1.001-1.035) Urine Protein Negative (Negative) Urine Glucose (UA) Negative (Negative) Urine Ketones Negative (Negative) Urine Blood Negative (Negative) Urine Nitrite Negative (Negative) Urine Bilirubin Negative (Negative) Urine Urobilinogen <2.0 (<2.0) mg/dL Ur Leukocyte Esterase Negative (Negative) Urine HCG, Qual (Not Detectd) 05/26/23 Range/Units 15:41 WBC (3.8-10.6) k/uL RBC (3.80-5.40) m/uL Hgb (11.4-16.0) gm/dL Hct (34.0-46.0) % MCV (80.0-100.0) fL MCH (25.0-35.0) pg MCHC (31.0-37.0) g/dL RDW (11.5-15.5) % Plt Count (150-450) k/uL MPV Neutrophils % % Lymphocytes % % Monocytes % % Eosinophils % % Basophils % % Neutrophils # (1.3-7.7) k/uL Lymphocytes # (1.0-4.8) k/uL Monocytes # (0-1.0) k/uL Eosinophils # (0-0.7) k/uL Basophils # (0-0.2) k/uL Sodium (137-145) mmol/L Potassium (3.5-5.1) mmol/L Chloride (98-107) mmol/L Carbon Dioxide (22-30) mmol/L Anion Gap mmol/L BUN (7-17) mg/dL Creatinine (0.52-1.04) mg/dL Est GFR (CKD-EPI)AfAm (>60 ml/min/1.73 sqM) Est GFR (CKD-EPI)NonAf (>60 ml/min/1.73 sqM) Glucose (74-99) mg/dL Calcium (8.4-10.2) mg/dL Phosphorus (2.5-4.5) mg/dL Magnesium (1.6-2.3) mg/dL Total Bilirubin (0.2-1.3) mg/dL AST (14-36) U/L ALT (4-34) U/L Alkaline Phosphatase (38-126) U/L Total Protein (6.3-8.2) g/dL Albumin (3.5-5.0) g/dL Amylase (30-110) U/L Lipase (23-300) U/L Urine Color Urine Appearance (Clear) Urine pH (5.0-8.0) Ur Specific [place] (1.001-1.035) Urine Protein (Negative) Urine Glucose (UA) (Negative) Urine Ketones (Negative) Urine Blood (Negative) Urine Nitrite (Negative) Urine Bilirubin (Negative) Urine Urobilinogen (<2.0) mg/dL Ur Leukocyte Esterase (Negative) Urine HCG, Qual Not Detected (Not Detectd) - EKG Data -: EKG Interpreted by Me (EKG is sinus tachycardia 129 MA 139 QRS 81 QTc 375) - Radiology Data Radiology results: report reviewed (Ultrasound kidney bladder does show positive hydronephrosis), image reviewed Disposition Clinical Impression: Flank pain, Intractable abdominal pain, Abdominal pain, Calculus of kidney, Hydronephrosis Disposition: HOME SELF-CARE Condition: Fair Instructions (If sedation given, give patient instructions): Abdominal Pain (ED) Is patient prescribed a controlled substance at d/c from ED?: No Referrals: Tiffanie Graham MD [Primary Care Provider] - 1-2 days Time of Disposition: 15:30
[2023-05-26 14:15] LABS: Basophils % (A) 0 %; Eosinophils # (A) 0.2 k/uL (0-0.7); Eosinophils % (A) 3 %; HGB 14.2 gm/dL (11.4-16.0); Lymphocytes # (A) 2.1 k/uL (1.0-4.8); Lymphocytes % (A) 29 %; MCH 32.6 pg (25.0-35.0); MCHC 34.7 g/dL (31.0-37.0); Mean Platelet Volume 7.5; Monocytes # (A) 0.4 k/uL (0-1.0); Monocytes % (A) 5 %; Neutrophils # (A) 4.5 k/uL (1.3-7.7); Neutrophils % (A) 60 %; Platelet Count 240 k/uL (150-450); RBC 4.36 m/uL (3.80-5.40); RDW 12.3 % (11.5-15.5); WBC 7.5 k/uL (3.8-10.6)
[2023-05-26 14:30] LABS: ALT 95 U/L (4-34); AST 68 U/L (14-36); African American GFR (CKD) >90 (>60 ml/min/1.73 sqM); Albumin 4.6 g/dL (3.5-5.0); Alkaline Phosphatase 64 U/L (38-126); Amylase 50 U/L (30-110); Anion Gap 7 mmol/L; Blood Urea Nitrogen 12 mg/dL (7-17); Carbon Dioxide 26 mmol/L (22-30); Chloride 106 mmol/L (98-107); Glucose 87 mg/dL (74-99); Lipase 45 U/L (23-300); Magnesium 1.9 mg/dL (1.6-2.3); Non-African American GFR(CKD) >90 (>60 ml/min/1.73 sqM); Phosphorus 2.9 mg/dL (2.5-4.5); Sodium 139 mmol/L (137-145); Total Bilirubin 0.8 mg/dL (0.2-1.3); Total Protein 7.7 g/dL (6.3-8.2)
[2023-05-26 14:31] LABS: Potassium 4.7 mmol/L (3.5-5.1)
[2023-05-26 14:33] LABS: Appearance,Urine Clear (Clear); Bilirubin,Urine Negative (Negative); Blood,Urine Negative (Negative); Color,Urine Colorless; Glucose,Urine (UA) Negative (Negative); Ketones,Urine Negative (Negative); Leukocyte Esterase,Urine Negative (Negative); Nitrite,Urine Negative (Negative); Protein,Urine Negative (Negative); Specific Gravity,Urine 1.009 (1.001-1.035); Urobilinogen,Urine <2.0 mg/dL (<2.0)
[2023-05-26] MEDS: KETOROLAC 15 MG/ML 1 ML VIAL IVP STA (14:37)
--- NOTE | 2023-05-26 14:38 | US ---
EXAMINATION TYPE: US renals and bladder DATE OF EXAM: 05/26/2023 COMPARISON: NONE CLINICAL INDICATION: Female, 28 years old with history of pain; Hx Multiple stones EXAM MEASUREMENTS: Right Kidney: 9.2 x 5.5 x 4.5 cm Left Kidney: 9.8 x 5.9 x 6.4 cm Post Void Residual Volume: 49 mL Right Kidney: Prominent pelvis Left Kidney: Prominent pelvis; 2mm stone seen Bladder: WNL Bilateral Jets seen: Yes Normal Post Void Residual: 49 The urinary bladder is anechoic. Bilateral ureteral jets are seen. Liver somewhat coarsened and increased in echo pattern correlate for hepatic steatosis or underlying hepatocellular disease. IMPRESSION: 1. Bilateral mild hydronephrosis. Tiny lower pole left renal calculus measuring 2 mm suspected. Punct ate 1 mm right renal calculi noted on previous CT scan is not seen by ultrasound.
[2023-05-26] MEDS: HYDROmorphone 1 MG/ML 1 ML SYRINGE IVP STA (14:42)
[2023-05-26] MEDS: ONDANSETRON 4 MG/2 ML VIAL IVP STA (14:43)
[2023-05-26] MEDS: SODIUM CHLORIDE 0.9% 1,000 ML IV STA (14:44)
[2023-05-26] MEDS: MORPHINE SULFATE 4 MG/ML SYRINGE IV STA (15:36)
[2023-05-26 17:03] VITALS: BP 146/96; PULSE 98; RESP 18
== END 2023-05-26 16:56 | disposition home or self-care (01) ==
LOC: EC 13:19
DX: N13.2 Hydronephrosis with renal and ureteral calculous obstruction (principal); Z88.1 Allergy status to other antibiotic agents; Z88.2 Allergy status to sulfonamides; Z88.0 Allergy status to penicillin; Z91.018 Allergy to other foods
CPT/HCPCS: 36415; 80053; 82150; 83690; 83735; 84100; 85025; 81003; 81025; 76770; 99284; 96374; 96375 ×3; 96361; J2270; J2405; J1170; J1885

== ENCOUNTER → 2023-05-31 | Outpatient (CLI) | payer MEDICAID, OTHER ==
[2023-05-31 18:51] LABS: Basophils # (A) 0.03 X 10*3/uL (0.00-0.10); Basophils % (A) 0.4 %; Eosinophils # (A) 0.29 X 10*3/uL (0.04-0.35); Eosinophils % (A) 4.2 %; HCT 40.8 % (37.2-46.3); HGB 14.1 g/dL (12.0-15.0); Lymphocytes # (A) 2.95 X 10*3/uL (0.90-5.00); Lymphocytes % (A) 42.3 %; MCH 32.3 pg (27.0-32.0); MCHC 34.6 g/dL (32.0-37.0); MCV 93.6 FL (80.0-97.0); Mean Platelet Volume 9.6 FL (9.5-12.2); Monocytes # (A) 0.41 X 10*3/uL (0.20-1.00); Monocytes % (A) 5.9 %; NRBC Per 100 WBC 0 X 10*3/uL (0.00-0.01); Neutrophils # (A) 3.28 X 10*3/uL (1.80-7.70); Neutrophils % (A) 46.9 %; Platelet Count 284 X 10*3/uL (140-440); RBC 4.36 X 10*6/uL (4.10-5.20); RDW 11.9 % (11.5-14.5); WBC 6.98 X 10*3/uL (4.50-10.00)
[2023-05-31 19:10] LABS: BUN/Creat Ratio 18.17 Ratio (12.00-20.00); Blood Urea Nitrogen 10.9 mg/dL (9.0-27.0); Calcium 10.1 mg/dL (8.7-10.3); Carbon Dioxide 25.5 mmol/L (21.6-31.8); Chloride 102 mmol/L (96-109); Glucose 136 mg/dL (70-110); Potassium 4.3 mmol/L (3.5-5.5); Sodium 140 mmol/L (135-145)
== END | disposition home or self-care (01) ==
LOC: LABPAT 15:03
PROVIDERS: ATTEND Urology
DX: Z01.812 Encounter for preprocedural laboratory examination (principal); N13.30 Unspecified hydronephrosis
CPT/HCPCS: 36415; 80048; 81025; 85025

== ENCOUNTER 2023-06-04 19:31 | Inpatient (IN) | payer MEDICAID, OTHER ==
--- NOTE | 2023-06-04 19:53 | ED ---
Female Urogenital HPI - General Chief complaint: Urogenital Stated complaint: Urine Retention, Kidney Stones Time Seen by Provider: 06/04/23 19:41 Source: patient Mode of arrival: ambulatory Limitations: no limitations - History of Present Illness Initial comments: 28-year-old female presenting to the ED with a chief complaint of abdominal pain. Patient has history of chronic flank and abdominal pain. Patient also notes associated difficulties with urination urinary hesitancy. Had recent CT scan showing punctate right renal calculi, no left renal calculi. Evidence of bilateral renal pelvic prominence as well. Recent ultrasound showed bilateral mild hydronephrosis. Followed up with Dr. Lockwood of urology. Plan for cystoscopy, bilateral retrograde pyelograms, possible ureteroscopically, possible ureteral stent insertion. However, patient reports today has been unable to urinate. States her last episode of urination was prior to 4 PM to day. Also notes worsening of this back and flank pain. No fever or chills. No other complaints at this time. - Related Data Home Medications Medication Instructions Recorded Confirmed Albuterol Nebulized [Ventolin 2.5 mg INHALATION RT-QID PRN 05/18/22 05/13/23 Nebulized] Dicyclomine [Bentyl] 10 mg PO QID PRN 05/18/22 05/13/23 Levothyroxine Sodium [Synthroid] 137 mcg PO DAILY 05/18/22 05/13/23 Albuterol Sulfate [Albuterol 1 - 2 puff INHALATION RT-Q4H PRN 06/22/22 05/13/23 Sulfate Hfa] ALPRAZolam [Xanax] 1 mg PO BID PRN 03/10/23 05/13/23 Desvenlafaxine [Pristiq ER] 100 mg PO DAILY 03/10/23 05/13/23 Montelukast [Singulair] 10 mg PO DAILY 03/10/23 05/13/23 Cholecalciferol [Vitamin D3 (25 25 mcg PO DAILY 04/25/23 05/13/23 Mcg = 1000 Iu)] Famotidine [Pepcid] 20 mg PO DAILY PRN 04/25/23 05/13/23 oxyCODONE HCL/ACETAMINOPHEN 1 tab PO DAILY PRN 04/25/23 05/13/23 [Percocet 5-325 mg] ARIPiprazole [Abilify] 3 mg PO DAILY 05/13/23 05/13/23 Omeprazole 40 mg PO DAILY 05/13/23 05/13/23 Previous Rx's Medication Instructions Recorded Ibuprofen [Motrin] 600 mg PO Q8HR PRN #20 tab 12/13/22 Ondansetron Odt [Zofran ODT] 4 mg PO Q8HR PRN #10 tab 12/13/22 Metoprolol Succinate (ER) [Toprol 25 mg PO DAILY #30 tab 05/14/23 XL] Allergies Allergy/AdvReac Type Severity Reaction Status Date / Time amoxicillin Allergy Rash/Hives Verified 06/04/23 19:35 nickel Allergy Rash/Hives Verified 06/04/23 19:35 sulfamethoxazole Allergy Rash/Hives Verified 06/04/23 19:35 [From ] trimethoprim [From ] Allergy Rash/Hives Verified 06/04/23 19:35 corn AdvReac Diarrhea Verified 06/04/23 19:35 Review of Systems ROS Statement: Those systems with pertinent positive or pertinent negative responses have been documented in the HPI. ROS Other: All systems not noted in ROS Statement are negative. 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, History of Any Multi-Drug Resistant Organisms: None Reported Past Surgical History: Appendectomy, Section Additional Past Surgical History / Comment(s): thyroidectomy 09/2017, Laparoscopic exam w/ cautery endometriosis 2012 Past Anesthesia/Blood Transfusion Reactions: No Reported Reaction Past Psychological History: Anxiety, Depression Smoking Status: Never smoker Past Alcohol Use History: Occasional, Rare Past Drug Use History: None Reported - Past Family History Mother Family Medical History: Asthma Father Family Medical History: Coronary Artery Disease (CAD), CVA/TIA Brother(s) Family Medical History: Asthma General Exam Limitations: no limitations General appearance: alert, other (Tearful) Neck exam: Present: normal inspection Respiratory exam: Present: normal lung sounds bilaterally Cardiovascular Exam: Present: regular rate GI/Abdominal exam: Present: soft (Tenderness to palpation in the lower abdomen. No rebound guarding or rigidity. Bilateral flank tenderness to percussion alla aterally.), normal bowel sounds Neurological exam: Present: alert, oriented X3 Course Vital Signs 06/04/23 06/04/23 19:34 20:28 Temperature 97.8 F Pulse Rate 132 H 104 H Respiratory 18 18 Rate Blood Pressure 149/114 140/106 O2 Sat by Pulse 100 97 Oximetry Medical Decision Making - Medical Decision Making Was pt. sent in by a medical professional or institution (, [facility], ROLL SHOP SUPERVISOR, urgent care, hospital, or senior care...) When possible be specific @ -No Did you speak to anyone other than the patient for history (EMS, parent, family, police, friend...)? What history was obtained from this source @ -No Did you review nursing and triage notes (agree or disagree)? Why? @ -I reviewed and agree with nursing and triage notes Were old charts reviewed (outside hosp., previous admission, EMS record, old EKG, old radiological studies, urgent care reports/EKG's, senior care records)? Report findings @ -Prior charts reviewed. For further details please see HPI. Differential Diagnosis (chest pain, altered mental status, abdominal pain women, abdominal pain men, vaginal bleeding, weakness, fever, dyspnea, syncope, headache, dizziness, GI bleed, back pain, seizure, CVA, palpatations, mental health, musculoskeletal)? @ -Differential Abdominal Pain Women: Appendicitis, Cholecystitis, diverticulosis, ischemic bowel, pancreatitis, hepatitis, UTI, gastroenteritis, AAA, incarcerated hernia, bowel obstruction, constipation, inflammatory bowel, hepatitis, peptic ulcer disease, splenic infarction, perforated viscus, vulvitis, ovarian torsion, PID, kidney stone, placenta abruption, this is not meant to be an all-inclusive list EKG interpreted by me (3pts min.). @ -None X-rays interpreted by me (1pt min.). @ -None done CT interpreted by me (1pt min.). @ -None done U/S interpreted by me (1pt. min.). @ -Interpreted me which showed bilateral hydronephrosis. What testing was considered but not performed or refused? (CT, X-rays, U/S, labs)? Why? @ -None What meds were considered but not given or refused? Why? @ -None Did you discuss the management of the patient with other professionals (professionals i.e. , PA, ROLL SHOP SUPERVISOR, lab, RT, psych nurse, psychotherapist social worker, thermal cutting machine operator, teacher, staff weapons officer, case folder)? Give summary @ -Case discussed with Dr. Lantigua of urology who will see the patient tomorrow on consult. Case discussed with Dr. Clayton, who accepts admission Was smoking cessation discussed for >3mins.? @ -No Was critical care preformed (if so, how long)? @ -No Were there social determinants of health that impacted care today? How? (Homelessness, low income, unemployed, alcoholism, drug addiction, transportation, low edu. Level, literacy, decrease access to med. care, long-term, rehab)? @ -No Was there de-escalation of care discussed even if they declined (Discuss DNR or withdrawal of care, Hospice)? DNR status @ -No What co-morbidities impacted this encounter? (DM, HTN, Smoking, COPD, CAD, Cancer, CVA, ARF, Chemo, Hep., AIDS, mental health diagnosis, sleep apnea, morbid obesity)? @ -None Was patient admitted / discharged? Hospital course, mention meds given and route, prescriptions, significant lab abnormalities, going to OR and other pertinent info. @ -Admission 28-year-old female presenting to the ED with complaints of flank and abdominal pain which is chronic in nature however recently worsening. Also notes dysuria described as difficulty initiating urine and feeling like she has completely voided. Does have plans for possible bilateral stent insertion later this week however patient reports that she is unable to tolerate her symptoms anymore prompting presentation to the ED for further evaluation. Despite analgesia here in the ED, patient still in significant pain and therefore will be placed in knobs for pain control and consult to urology. Patient will be placed NPO. Discussed plan of care with patient who is in agreement. Undiagnosed new problem with uncertain prognosis? @ -No Drug Therapy requiring intensive monitoring for toxicity (Heparin, Nitro, Insulin, Cardizem)? @ -No Were any procedures done? @ -No Diagnosis/symptom? @ -Flank/abdominal pain, dysuria Acute, or Chronic, or Acute on Chronic? @ -Acute on chronic Uncomplicated (without systemic symptoms) or Complicated (systemic symptoms)? @ -Uncomplicated Side effects of treatment? @ -No Exacerbation, Progression, or Severe Exacerbation? @ -No Poses a threat to life or bodily function? How? (Chest pain, [place], [place], pneumonia, PE, COPD, DKA, ARF, appy, cholecystitis, CVA, Diverticulitis, Homicidal, Suicidal, threat to staff... and all critical care pts) @ -No - Lab Data Lab Results 06/04/23 06/04/23 Range/Units 20:16 21:00 Urine Color Colorless Urine Appearance Clear (Clear) Urine pH 6.0 (5.0-8.0) Ur Specific [place] 1.021 (1.001-1.035) Urine Protein Negative (Negative) Urine Glucose (UA) Negative (Negative) Urine Ketones Negative (Negative) Urine Blood Negative (Negative) Urine Nitrite Negative (Negative) Urine Bilirubin Negative (Negative) Urine Urobilinogen <2.0 (<2.0) mg/dL Ur Leukocyte Esterase Negative (Negative) Urine HCG, Qual Not Detected (Not Detectd) Disposition Clinical Impression: Flank pain, Abdominal pain, Dysuria Disposition: ADMITTED IP TO THIS [facility] Condition: Good Referrals: Tiffanie Nicole NPC [Primary Care Provider] - 1-2 days Time of Disposition: 22:11
[2023-06-04] MEDS: ONDANSETRON 4 MG/2 ML VIAL IVP STA (20:27)
[2023-06-04 20:28] LABS: Appearance,Urine Clear (Clear); Bilirubin,Urine Negative (Negative); Blood,Urine Negative (Negative); Color,Urine Colorless; Glucose,Urine (UA) Negative (Negative); Ketones,Urine Negative (Negative); Leukocyte Esterase,Urine Negative (Negative); Nitrite,Urine Negative (Negative); Protein,Urine Negative (Negative); Specific Gravity,Urine 1.021 (1.001-1.035); Urobilinogen,Urine <2.0 mg/dL (<2.0)
[2023-06-04] MEDS: MORPHINE SULFATE 4 MG/ML SYRINGE IVP STA (20:30)
[2023-06-04] MEDS: HYDROmorphone 1 MG/ML 1 ML SYRINGE IVP STA (21:26)
--- NOTE | 2023-06-04 21:29 | US ---
EXAMINATION TYPE: US renals and bladder DATE OF EXAM: 06/04/2023 COMPARISON: US 05/26/2023, CT05/17/2023 CLINICAL INDICATION: Female, 28 years old with history of urinary retention; Hx kidney stones, lithot ripsy, stent with removal. Urinary retention per order. Patient states she has ureteral stenosis on both sides. EXAM MEASUREMENTS: Right Kidney: 10.3 x 5.2 x 4.4 cm Left Kidney: 9.9 x 5.5 x 5.7 cm Right Kidney: *Hydronephrosis visualized Hyperechoic focus seen upper pole: 0.4 x 0.5 x 0.2 cm. Left Kidney: *Hydronephrosis visualized. Bladder: Appears wnl Bilateral Jets seen: Yes IMPRESSION: Mild bilateral hydronephrosis left greater than right. Nonobstructing nephrolithiasis upper pole of r ight kidney.
[2023-06-04] MEDS ORDERED: ACETAMINOPHEN TAB 325 MG TAB PO PRN (22:12)
[2023-06-04] MEDS ORDERED: HYDROmorphone 0.5 MG/0.5 ML SYRINGE IVP PRN (22:12)
[2023-06-04] MEDS ORDERED: NALOXONE 0.4 MG/ML 1 ML VIAL IV PRN (22:12)
[2023-06-04] MEDS: LORazepam 2 MG/ML INJ IV STA (22:23)
[2023-06-04 22:34] LABS: Basophils # (A) 0.1 k/uL (0-0.2); Basophils % (A) 1 %; Eosinophils # (A) 0.2 k/uL (0-0.7); Eosinophils % (A) 3 %; HGB 13.4 gm/dL (11.4-16.0); Lymphocytes # (A) 2.9 k/uL (1.0-4.8); Lymphocytes % (A) 46 %; MCH 31.8 pg (25.0-35.0); MCHC 33.6 g/dL (31.0-37.0); MCV 94.5 fL (80.0-100.0); Mean Platelet Volume 7.5; Monocytes # (A) 0.3 k/uL (0-1.0); Monocytes % (A) 4 %; Neutrophils # (A) 2.9 k/uL (1.3-7.7); Neutrophils % (A) 45 %; Platelet Count 278 k/uL (150-450); RBC 4.23 m/uL (3.80-5.40); RDW 12.2 % (11.5-15.5); WBC 6.4 k/uL (3.8-10.6)
[2023-06-04 22:44] LABS: ALT 54 U/L (4-34); AST 36 U/L (14-36); African American GFR (CKD) >90 (>60 ml/min/1.73 sqM); Albumin 4.3 g/dL (3.5-5.0); Alkaline Phosphatase 82 U/L (38-126); Anion Gap 9 mmol/L; Blood Urea Nitrogen 16 mg/dL (7-17); Calcium 8.9 mg/dL (8.4-10.2); Carbon Dioxide 20 mmol/L (22-30); Chloride 109 mmol/L (98-107); Glucose 90 mg/dL (74-99); Non-African American GFR(CKD) >90 (>60 ml/min/1.73 sqM); Potassium 4.5 mmol/L (3.5-5.1); Sodium 138 mmol/L (137-145); Total Bilirubin 0.6 mg/dL (0.2-1.3); Total Protein 7.1 g/dL (6.3-8.2)
[2023-06-04] MEDS: METOPROLOL SUCCINATE (ER) 25 MG TAB.ER.24H PO SCH (23:36)
[2023-06-04] MEDS: PANTOPRAZOLE 40 MG TABLET PO SCH (23:36)
[2023-06-04] MEDS: HYDROmorphone 1 MG/ML 1 ML SYRINGE IVP PRN (23:41)
--- NOTE | 2023-06-05 00:40 | P.HPIM ---
History of Present Illness H&P Date: 06/04/23 Patient is a 28-year-old female with a PMH of Graves' disease status post thyroidectomy, mitral valve prolapse, and recurrent nephrolithiasis who presents to the emergency room with complaints of flank pain along with urinary complaints. Patient reports that she has been experiencing somewhat worsening bilateral flank pain over the past 2 to 3 weeks for which she was seen at Dr. Lockwood' office roughly 10 days ago. He had ordered an ultrasound renal and bladder which revealed bilateral mild hydronephrosis as well as bilateral tiny calculi. The patient notes that since her last appointment over the past 2 to 3 days, her pain has worsened significantly, now rated 9 out of 10, primarily on the left flank, radiating down towards the groin. Reports urinary urgency and hesitancy with needing to strain to pass urine. Also reports nausea with 2 episodes of vomiting throughout the day today, nonbloody. Denies fever or chills. Also denies chest pain, shortness of breath, cough. ED provider reports that he spoke with urology who recommended that the patient will likely need a cystoscopy with bilateral retrograde pyelograms and possible ureteroscopy and stent insertion. The patient reportedly also has urethral stenosis. Abdominal ultrasound in the emergency room revealed mild bilateral hydronephrosis left greater than right. Laboratory evaluation was remarkable for WBC count 6.4, sodium 138, chloride 109, BUN 16, creatinine 0.57, ALT 54, UA unremarkable. ED documentation reviewed and case discussed with ED provider. Review of systems: Pertinent positives and negatives as discussed in HPI, a complete review of systems was performed and all other systems are negative. Physical examination: Vital signs reviewed General: non toxic, no distress, appears at stated age, normal weight Derm: no unusual rashes/lesions, warm Head: atraumatic, normocephalic, symmetric Eyes: EOMI, no lid lag, anicteric sclera, pupils equal round reactive to light ENT: Nose and ears atraumatic Neck: No cervical lymphadenopathy, trachea midline, supple Mouth: no lip lesion, mucus membranes moist Cardiovascular: S1S2 reg, no murmur, positive dorsalis pedis pulse bilateral, no edema Lungs: CTA bilateral, no rhonchi, no rales, no accessory muscle use Abdominal: soft, left flank tenderness to palpation with suprapubic tenderness, no guarding Ext: muscle strength 5 out of 5 in all 4 extremities grossly, no gross muscle atrophy, no contractures, Neuro: CN II-XI grossly intact, no gross focal neuro deficits Psych: Alert, oriented, appropriate affect Assessment: Recurrent nephrolithiasis with hydronephrosis Chronic conditions: Graves' disease status post thyroidectomy, mitral valve pr olapse Imaging: Abdominal ultrasound in the emergency room revealed mild bilateral hydronephrosis left greater than right. Data Review: Laboratory evaluation was remarkable for WBC count 6.4, sodium 138, chloride 109, BUN 16, creatinine 0.57, ALT 54, UA unremarkable. Plan: Urology consulted Pain control Continue with patient's home medications once reconciled Continue IV fluids with normal saline 100 cc/h Antiemetics N.p.o. for now DVT prophylaxis: Lovenox subcu The patient is admitted with an anticipated less than 2 midnight stay for evaluation of nephrolithiasis CODE STATUS: Full Code Discussed with: Patient Anticipated discharge place: Home 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 senior branch manager, History of Any Multi-Drug Resistant Organisms: None Reported Past Surgical History: Appendectomy, Section Additional Past Surgical History / Comment(s): thyroidectomy 09/2017, Laparoscopic exam w/ cautery endometriosis 2012 Past Anesthesia/Blood Transfusion Reactions: No Reported Reaction Past Psychological History: Anxiety, Depression Smoking Status: Never smoker Past Alcohol Use History: Occasional, Rare Past Drug Use History: None Reported - Past Family History Mother Family Medical History: Asthma Father Family Medical History: Coronary Artery Disease (CAD), CVA/TIA Brother(s) Family Medical History: Asthma Medications and Allergies Home Medications Medication Instructions Recorded Confirmed Type Albuterol Nebulized [Ventolin 2.5 mg INHALATION RT-QID PRN 05/18/22 05/13/23 History Nebulized] Dicyclomine [Bentyl] 10 mg PO QID PRN 05/18/22 05/13/23 History Levothyroxine Sodium [Synthroid] 137 mcg PO DAILY 05/18/22 05/13/23 History Albuterol Sulfate [Albuterol 1 - 2 puff INHALATION RT-Q4H PRN 06/22/22 05/13/23 History Sulfate Hfa] Ibuprofen [Motrin] 600 mg PO Q8HR PRN #20 tab 12/13/22 05/13/23 Rx Ondansetron Odt [Zofran ODT] 4 mg PO Q8HR PRN #10 tab 12/13/22 05/13/23 Rx ALPRAZolam [Xanax] 1 mg PO BID PRN 03/10/23 05/13/23 History Desvenlafaxine [Pristiq ER] 100 mg PO DAILY 03/10/23 05/13/23 History Montelukast [Singulair] 10 mg PO DAILY 03/10/23 05/13/23 History Cholecalciferol [Vitamin D3 (25 25 mcg PO DAILY 04/25/23 05/13/23 History Mcg = 1000 Iu)] Famotidine [Pepcid] 20 mg PO DAILY PRN 04/25/23 05/13/23 History oxyCODONE HCL/ACETAMINOPHEN 1 tab PO DAILY PRN 04/25/23 05/13/23 History [Percocet 5-325 mg] ARIPiprazole [Abilify] 3 mg PO DAILY 05/13/23 05/13/23 History Omeprazole 40 mg PO DAILY 05/13/23 05/13/23 History Metoprolol Succinate (ER) [Toprol 25 mg PO DAILY #30 tab 05/14/23 Rx XL] Allergies Allergy/AdvReac Type Severity Reaction Status Date / Time amoxicillin Allergy Rash/Hives Verified 06/04/23 19:35 nickel Allergy Rash/Hives Verified 06/04/23 19:35 sulfamethoxazole Allergy Rash/Hives Verified 06/04/23 19:35 [From ] trimethoprim [From ] Allergy Rash/Hives Verified 06/04/23 19:35 corn AdvReac Diarrhea Verified 06/04/23 19:35 Physical Exam Vitals: Vital Signs Temp Pulse Resp BP Pulse Ox 06/04/23 23:37 133/93 06/04/23 20:28 104 H 18 140/106 97 06/04/23 19:34 97.8 F 132 H 18 149/114 100 Intake and Output 06/04/23 06/04/23 06/05/23 14:59 22:59 06:59 Other: Weight 72.575 kg Results CBC & Chem 7: 06/04/23 20:15 06/04/23 20:15 Labs: Abnormal Lab Results - Last 24 Hours (Table) 06/04/23 Range/Units 20:15 Chloride 109 H (98-107) mmol/L Carbon Dioxide 20 L (22-30) mmol/L ALT 54 H (4-34) U/L
[2023-06-05] MEDS: KETOROLAC 15 MG/ML 1 ML VIAL IVP STA (06:28)
[2023-06-05] MEDS: ENOXAPARIN 40 MG/0.4 ML SYRINGE SQ SCH (10:06)
[2023-06-05] MEDS: LEVOTHYROXINE 137 MCG TAB PO SCH (10:06)
[2023-06-05] MEDS: ONDANSETRON 4 MG/2 ML VIAL IVP PRN (10:09)
[2023-06-05] MEDS ORDERED: HYDROcodone/APAP 10-325MG 1 EACH TAB PO PRN (10:25)
[2023-06-05] MEDS ORDERED: DICYCLOMINE 10 MG CAP PO PRN (10:25)
[2023-06-05] MEDS ORDERED: ALBUTEROL NEBULIZED 2.5 MG/3 ML INHALATION PRN (10:25)
[2023-06-05 10:46] LABS: HCT 40.8 % (34.0-46.0); HGB 13.4 gm/dL (11.4-16.0); MCH 31.7 pg (25.0-35.0); MCHC 32.9 g/dL (31.0-37.0); MCV 96.1 fL (80.0-100.0); Mean Platelet Volume 7.3; Platelet Count 268 k/uL (150-450); RBC 4.25 m/uL (3.80-5.40); RDW 12.4 % (11.5-15.5); WBC 6.3 k/uL (3.8-10.6)
[2023-06-05] MEDS: MAGNESIUM OXIDE 400 MG TAB PO SCH (10:52)
[2023-06-05] MEDS: CHOLECALCIFEROL 25 MCG (1000 IU) TABLET PO SCH (10:52)
[2023-06-05] MEDS: ARIPiprazole 2 MG TAB PO SCH (10:52)
[2023-06-05] MEDS: MONTELUKAST 10 MG TAB PO SCH (10:52)
[2023-06-05] MEDS: ALPRAZolam 1 MG TAB PO PRN (10:58)
[2023-06-05] MEDS ORDERED: METOPROLOL SUCCINATE (ER) 25 MG TAB.ER.24H PO SCH (11:00)
[2023-06-05 11:05] LABS: ALT 63 U/L (4-34); AST 42 U/L (14-36); African American GFR (CKD) >90 (>60 ml/min/1.73 sqM); Albumin 4.2 g/dL (3.5-5.0); Albumin/Globulin Ratio 1.5; Alkaline Phosphatase 70 U/L (38-126); Anion Gap 11 mmol/L; Blood Urea Nitrogen 15 mg/dL (7-17); Carbon Dioxide 20 mmol/L (22-30); Chloride 108 mmol/L (98-107); Globulin 2.8 g/dL; Glucose 146 mg/dL (74-99); Lipase 60 U/L (23-300); Non-African American GFR(CKD) >90 (>60 ml/min/1.73 sqM); Sodium 139 mmol/L (137-145); Total Bilirubin 0.4 mg/dL (0.2-1.3)
[2023-06-05] MEDS: KETOROLAC 15 MG/ML 1 ML VIAL IVP SCH (11:41)
[2023-06-05] MEDS: MORPHINE SULFATE 4 MG/ML SYRINGE IV PRN (11:41)
--- NOTE | 2023-06-05 13:35 | P.PN ---
Subjective Progress Note Date: 06/05/23 Hospital course: Patient is a very pleasant 28-year-old female with a past medical history of Graves' disease status post thyroidectomy, asthma, mitral valve prolapse, and recurrent nephrolithiasis. She presented to the emergency department on 06/04/2023 secondary to left flank pain with urinary complaints. Upon arrival to our facility, patient underwent evaluation. Vital signs in the emergency department show blood pressure 149/114, heart rate 132, respiratory rate 18, temp 97.8 F, and SpO2 of 100% on room air. Renal and bladder ultrasound completed showing mild bilateral hydronephrosis left greater than right with nonobstructing nephrolithiasis in the upper pole of right kidney. Labs completed and reviewed. CBC unremarkable. BMP revealing hyperchloremia with chloride of 109 and hypocarbia with bicarb of 20 otherwise normal findings with renal function unremarkable showing BUN of 16, creatinine of 0.57, and GFR greater than 90. Liver profile showing slightly elevated ALT of 54 otherwise normal findings. Urinalysis unremarkable showing no signs of blood, protein, ketones, or infection and urine hCG was negative. Patient was admitted under services with consultation to urology. Physical exam: Patient seen and fully evaluated at bedside this morning. She was sitting up in chair in room reports continued persistent pain to bilateral flanks and difficulties with urination stating only urinating small amounts at a time. Urology evaluated and per RN Dr. Arcos is planning cystoscopy tomorrow. Vital signs reviewed and stable. General: Nontoxic, no distress and appears stated age. Derm: Skin warm and dry, normal coloration for ethnicity. Head: Atraumatic, normocephalic and symmetric. Eyes: EOMs intact, no lid lag, and anicteric sclera Mouth: no lip lesions, mucus membranes moist Cardiovascular: regular rate and rhythm with normal S1S2, no murmur, positive posterior tibial pulses bilaterally, and cap refill < 2 seconds. Lungs: Respirations even, regular, and unlabored on room air. Lungs CTA bilaterally, no rhonchi, no rales, no wheezing, and no accessory muscle usage. Abdominal: soft, nontender to palpation, no guarding, no appreciable organomegaly. Bilateral CVA tenderness worse on left. Ext: ROM intact. No gross muscle atrophy, no edema, no contractures Neuro: Speech clear, face symmetrical and CN II-XII grossly intact with no noted focal neuro deficits Psych: Alert and oriented to person, place, time, and situation. Appropriate and pleasant affect. Assessment and Plan of Care: Recurrent nephrolithiasis with hydronephrosis Bilateral flank pain, secondary to above -Urinalysis negative for infection. -Urology following, planning to take patient for cystoscopy tomorrow. -Continue symptomatic care and pain management. -N.p.o. at midnight for planned procedure. -Continue to monitor I's and O's. History of Graves' disease status post thyroidectomy -Continue daily medication regimen with levothyroxine 137 mcg daily. Data and imaging reviewed: Urinalysis negative for infection. Urine hCG negative. CBC unremarkable with WBC count of 6.3, hemoglobin 13.4, and platelet count of 268. BMP showing mild hyperchloremia with chloride of 108 in hypocarbia with bicarb of 20. Liver profile showing slightly elevated AST of 42 and ALT of 63. Vital signs reviewed and stable. Blood pressure 113/77, heart rate 85, r espiratory rate 16, temp 97.8 F, and SpO2 of 95% on room air. CODE STATUS: Full code DVT prophylaxis: Lovenox Anticipated discharge date: Clinical course to determine, likely 24 to [address]: Home Patient was seen independently by Nurse Pracitioner. This document was prepared using [employer] dictation software. Please allow for errors in ecg technician, while rare they do occur. I reviewed the documentation as provided by the VONNIE above, who is the original author of this note. I agree with the documented assessment and plan, with the following changes: none Objective - Vital Signs Vital signs: Vital Signs Temp 97.8 F 06/05/23 07:00 Pulse 85 06/05/23 07:00 Resp 16 06/05/23 07:00 BP 113/77 06/05/23 07:00 Pulse Ox 95 06/05/23 07:00 FiO2 Intake & Output 06/04/23 06/05/23 06/05/23 18:59 06:59 18:59 Weight 72.575 kg Other: Voiding Method Toilet # Voids 1 - Labs CBC & Chem 7: 06/05/23 10:22 06/05/23 10:22 Labs: Abnormal Lab Results - Last 24 Hours (Table) 06/04/23 Range/Units 20:15 Chloride 109 H (98-107) mmol/L Carbon Dioxide 20 L (22-30) mmol/L ALT 54 H (4-34) U/L
--- NOTE | 2023-06-05 17:43 | P.GSCN ---
History of Present Illness Consult date: 06/05/23 Reason for Consult: Hydronephrosis Requesting physician: Marichuy Clayton History of present illness: The patient is a 28-year-old white female with a history of urolithiasis. She underwent ureteroscopic removal of a 9 mm right midpole calculus in August 2021. The calculus was composed of calcium oxalate and carbonate apatite. She now presents with bilateral flank and lower abdominal pain, predominantly left- sided. Recent CT scan shows punctate right renal calculi, no left renal calculi. There is evidence of bilateral renal pelvic prominence. Ultrasound shows bilateral mild hydronephrosis. Patient also reports urinary hesitancy and intermittency. She was scheduled to undergo cystoscopy under anesthesia on June 07 for further evaluation, but she was admitted last night due to worsening of her symptoms. It should be noted that renal pelvic fullness has been noted on CT scans dating back to 2014. Review of Systems - Constitutional Denies chills, Denies fever - Cardiovascular Denies chest pain - Respiratory Denies dyspnea - Gastrointestinal Reports abdominal pain, Reports nausea, Reports vomiting - Genitourinary Genitourinary: Reports flank pain, Denies hematuria 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 splitter hand, History of Any Multi-Drug Resistant Organisms: None Reported Past Surgical History: Appendectomy, Section Additional Past Surgical History / Comment(s): thyroidectomy 09/2017, Laparoscopic exam w/ cautery endometriosis 2012 Past Anesthesia/Blood Transfusion Reactions: No Reported Reaction Past Psychological History: Anxiety, Depression Smoking Status: Never smoker Past Alcohol Use History: Occasional, Rare Past Drug Use History: None Reported - Past Family History Mother Family Medical History: Asthma Father Family Medical History: Coronary Artery Disease (CAD), CVA/TIA Brother(s) Family Medical History: Asthma Medications and Allergies Home Medications Medication Instructions Recorded Confirmed Type Albuterol Nebulized [Ventolin 2.5 mg INHALATION RT-QID PRN 05/18/22 06/05/23 History Nebulized] Dicyclomine [Bentyl] 10 mg PO QID PRN 05/18/22 06/05/23 History Levothyroxine Sodium [Synthroid] 137 mcg PO DAILY 05/18/22 06/05/23 History Albuterol Sulfate [Albuterol 1 - 2 puff INHALATION RT-Q4H PRN 06/22/22 06/05/23 History Sulfate Hfa] ALPRAZolam [Xanax] 1 mg PO BID PRN 03/10/23 06/05/23 History Desvenlafaxine [Pristiq ER] 100 mg PO DAILY 03/10/23 06/05/23 History Montelukast [Singulair] 10 mg PO DAILY 03/10/23 06/05/23 History Cholecalciferol [Vitamin D3 (25 50 mcg PO DAILY 04/25/23 06/05/23 History Mcg = 1000 Iu)] ARIPiprazole [Abilify] 3 mg PO DAILY 05/13/23 06/05/23 History Omeprazole 40 mg PO BID 05/13/23 06/05/23 History HYDROcodone/APAP 10-325MG [[place] 1 tab PO Q8H PRN 06/05/23 06/05/23 History 10-325] Magnesium Oxide [Mag-Ox] 400 mg PO DAILY 06/05/23 06/05/23 History Metoprolol Succinate [Metoprolol 25 mg PO BID 06/05/23 06/05/23 History Succinate ER] Rizatriptan Benzoate [Rizatriptan] 10 mg PO DAILY PRN 06/05/23 06/05/23 History Allergies Allergy/AdvReac Type Severity Reaction Status Date / Time amoxicillin Allergy Rash/Hives Verified 06/05/23 09:18 nickel Allergy Rash/Hives Verified 06/05/23 09:18 sulfamethoxazole Allergy Rash/Hives Verified 06/05/23 09:18 [From ] trimethoprim [From ] Allergy Rash/Hives Verified 06/05/23 09:18 corn AdvReac Diarrhea Verified 06/05/23 09:18 Surgical - Exam Vital Signs Temp Pulse Resp BP Pulse Ox 97.8 F 132 H 18 149/114 100 06/04/23 19:34 06/04/23 19:34 06/04/23 19:34 06/04/23 19:34 06/04/23 19:34 - General well developed, well nourished, moderate distress - Respiratory normal respiratory effort - Abdomen Soft, non-distended, no mass. Lower abdominal tenderness is noted, without guarding or rebound. - Psychiatric oriented to time, oriented to person, oriented to place, speech is normal, memory intact Results - Labs 06/05/23 10:22 06/05/23 10:22 Abnormal Lab Results - Last 24 Hours (Table) 06/04/23 Range/Units 20:15 Chloride 109 H (98-107) mmol/L Carbon Dioxide 20 L (22-30) mmol/L ALT 54 H (4-34) U/L Diabetes panel 06/04/23 Range/Units 20:15 Sodium 138 (137-145) mmol/L Potassium 4.5 (3.5-5.1) mmol/L Chloride 109 H (98-107) mmol/L Carbon Dioxide 20 L (22-30) mmol/L BUN 16 (7-17) mg/dL Creatinine 0.57 (0.52-1.04) mg/dL Glucose 90 (74-99) mg/dL Calcium 8.9 (8.4-10.2) mg/dL AST 36 (14-36) U/L ALT 54 H (4-34) U/L Alkaline Phosphatase 82 (38-126) U/L Total Protein 7.1 (6.3-8.2) g/dL Albumin 4.3 (3.5-5.0) g/dL Calcium panel 06/04/23 Range/Units 20:15 Calcium 8.9 (8.4-10.2) mg/dL Albumin 4.3 (3.5-5.0) g/dL Pituitary panel 06/04/23 Range/Units 20:15 Sodium 138 (137-145) mmol/L Potassium 4.5 (3.5-5.1) mmol/L Chloride 109 H (98-107) mmol/L Carbon Dioxide 20 L (22-30) mmol/L BUN 16 (7-17) mg/dL Creatinine 0.57 (0.52-1.04) mg/dL Glucose 90 (74-99) mg/dL Calcium 8.9 (8.4-10.2) mg/dL Adrenal panel 06/04/23 Range/Units 20:15 Sodium 138 (137-145) mmol/L Potassium 4.5 (3.5-5.1) mmol/L Chloride 109 H (98-107) mmol/L Carbon Dioxide 20 L (22-30) mmol/L BUN 16 (7-17) mg/dL Creatinine 0.57 (0.52-1.04) mg/dL Glucose 90 (74-99) mg/dL Calcium 8.9 (8.4-10.2) mg/dL Total Bilirubin 0.6 (0.2-1.3) mg/dL AST 36 (14-36) U/L ALT 54 H (4-34) U/L Alkaline Phosphatase 82 (38-126) U/L Total Protein 7.1 (6.3-8.2) g/dL Albumin 4.3 (3.5-5.0) g/dL - Imaging CT scan - abdomen: report reviewed, image reviewed Assessment and Plan (1) Hydronephrosis Current Visit: No Status: Acute Code(s): N13.30 - UNSPECIFIED HYDRONEPHROSIS SNOMED Code(s): 80667662 Plan: Bladder scan will be utilized to check postvoid residual, in view of the patient's voiding symptoms. She will undergo cystoscopy, urethral dilation, and bilateral retrograde pyelograms. Ureteroscopy and/or ureteral stent placement may be performed depending on these findings. This has been outlined in detail with the patient, who has been made aware of potential risks which include anesthesia, bleeding, infection, persistent symptoms, and ureteral injury. Time with Patient: Greater than 30
[2023-06-05] MEDS: METOPROLOL SUCCINATE (ER) 25 MG TAB.ER.24H PO SCH (20:06)
[2023-06-06] MEDS ORDERED: HYDROmorphone 0.5 MG/0.5 ML SYRINGE IVP PRN (07:00)
[2023-06-06 10:45] LABS: HCT 39.5 % (37.2-46.3); HGB 13.3 g/dL (12.0-15.0); MCH 32.5 pg (27.0-32.0); MCHC 33.7 g/dL (32.0-37.0); MCV 96.6 FL (80.0-97.0); Mean Platelet Volume 9.7 FL (9.5-12.2); NRBC Per 100 WBC 0 X 10*3/uL (0.00-0.01); Platelet Count 256 X 10*3/uL (140-440); RBC 4.09 X 10*6/uL (4.10-5.20); RDW 12.2 % (11.5-14.5); WBC 9.57 X 10*3/uL (4.50-10.00)
[2023-06-06 11:04] LABS: BUN/Creat Ratio 22.71 Ratio (12.00-20.00); Blood Urea Nitrogen 15.9 mg/dL (9.0-27.0); Calcium 8.6 mg/dL (8.7-10.3); Carbon Dioxide 20.8 mmol/L (21.6-31.8); Chloride 104 mmol/L (96-109); Glucose 108 mg/dL (70-110); Potassium 3.8 mmol/L (3.5-5.5); Sodium 134 mmol/L (135-145)
--- NOTE | 2023-06-06 13:53 | P.PN ---
Subjective Progress Note Date: 06/06/23 Hospital course: Patient is a very pleasant 28-year-old female with a past medical history of Graves' disease status post thyroidectomy, asthma, mitral valve prolapse, and recurrent nephrolithiasis. She presented to the emergency department on 06/04/2023 secondary to left flank pain with urinary complaints. Upon arrival to our facility, patient underwent evaluation. Vital signs in the emergency department show blood pressure 149/114, heart rate 132, respiratory rate 18, temp 97.8 F, and SpO2 of 100% on room air. Renal and bladder ultrasound completed showing mild bilateral hydronephrosis left greater than right with nonobstructing nephrolithiasis in the upper pole of right kidney. Labs completed and reviewed. CBC unremarkable. BMP revealing hyperchloremia with chloride of 109 and hypocarbia with bicarb of 20 otherwise normal findings with renal function unremarkable showing BUN of 16, creatinine of 0.57, and GFR greater than 90. Liver profile showing slightly elevated ALT of 54 otherwise normal findings. Urinalysis unremarkable showing no signs of blood, protein, ketones, or infection and urine hCG was negative. Patient was admitted under services with consultation to urology. Physical exam: Patient seen and fully evaluated at bedside this morning. She is resting in b ed, reports continued bilateral flank pain. Patient awaiting to be taken down for cystoscopy and is scheduled for later this afternoon with Dr. Lockwood. Vital signs reviewed and stable. General: Nontoxic, no distress and appears stated age. Derm: Skin warm and dry, normal coloration for ethnicity. Head: Atraumatic, normocephalic and symmetric. Eyes: EOMs intact, no lid lag, and anicteric sclera Mouth: no lip lesions, mucus membranes moist Cardiovascular: regular rate and rhythm with normal S1S2, no murmur, positive posterior tibial pulses bilaterally, and cap refill < 2 seconds. Lungs: Respirations even, regular, and unlabored on room air. Lungs CTA bilaterally, no rhonchi, no rales, no wheezing, and no accessory muscle usage. Abdominal: soft, nontender to palpation, no guarding, no appreciable organomegaly. Bilateral CVA tenderness worse on left. Ext: ROM intact. No gross muscle atrophy, no edema, no contractures Neuro: Speech clear, face symmetrical and CN II-XII grossly intact with no noted focal neuro deficits Psych: Alert and oriented to person, place, time, and situation. Appropriate and pleasant affect. Assessment and Plan of Care: Recurrent nephrolithiasis with hydronephrosis Bilateral flank pain, secondary to above -Urinalysis negative for infection. -Urology following, planning to take patient for cystoscopy tomorrow. -Continue symptomatic care and pain management. -N.p.o. pending completion of procedure. -Continue to monitor I's and O's. History of Graves' disease status post thyroidectomy -Continue daily medication regimen with levothyroxine 137 mcg daily. Data and imaging reviewed: CBC unremarkable with WBC count of 9.57, hemoglobin 13.3, and platelet count of 256. BMP showing mild hyponatremia with sodium of 134 and hypocarbia with bicarb of 20.8 otherwise normal findings. Renal function remains unremarkable. Vital signs reviewed and stable. Blood pressure 109/72, heart rate 85, respiratory rate 16, temp 98.1 F, and SpO2 of 98% on room air. CODE STATUS: Full code DVT prophylaxis: Lovenox Anticipated discharge date: Clinical course to determine, likely within the next [address]: Home Patient was seen independently by Nurse Pracitioner. This document was prepared using [employer] dictation software. Please allow for errors in video clerk, while rare they do occur. Richard Post NP rendered care for this patient independently, reviewed the fi ndings and plan as documented in the note above. I did not physically speak with or examine the patient on this date. Objective - Vital Signs Vital signs: Vital Signs Temp 98.1 F 06/06/23 07:00 Pulse 85 06/06/23 07:00 Resp 16 06/06/23 07:00 BP 109/72 06/06/23 07:00 Pulse Ox 98 06/06/23 07:00 FiO2 Intake & Output 06/05/23 06/06/23 06/06/23 18:59 06:59 18:59 Intake Total 180 Balance 180 Intake: Oral 180 Other: Voiding Method Toilet Toilet # Voids 1 1 - Labs CBC & Chem 7: 06/06/23 05:52 06/06/23 05:52 Labs: Abnormal Lab Results - Last 24 Hours (Table) 06/05/23 Range/Units 10:22 Chloride 108 H (98-107) mmol/L Carbon Dioxide 20 L (22-30) mmol/L Glucose 146 H (74-99) mg/dL AST 42 H (14-36) U/L ALT 63 H (4-34) U/L
[2023-06-06] MEDS: MIDAZOLAM 2 MG/2 ML VIAL IVP ONE (15:06)
[2023-06-06] MEDS: IV FLUID CONTINUATION 1,000 ML IV ONE (15:06)
[2023-06-06] MEDS ORDERED: ROCURONIUM 10 MG/ML (5 ML VIAL) IV ONE (15:50)
[2023-06-06] MEDS ORDERED: fentaNYL (PF) 50 MCG/ML 2 ML AMP ONE (15:50)
[2023-06-06] MEDS ORDERED: NEOSTIGMINE 1 MG/ML 10 ML VIAL ONE (15:50)
[2023-06-06] MEDS ORDERED: LIDOCAINE 1% INJ 10MG/ML (20 ML MDV) ONE (15:50)
[2023-06-06] MEDS ORDERED: GLYCOPYRROLATE 0.2 MG/ML 2 ML VIAL ONE (15:50)
[2023-06-06] MEDS ORDERED: PROPOFOL 10 MG/ML 20 ML VIAL IV ONE (15:50)
[2023-06-06] MEDS ORDERED: HYDROmorphone (PF) 1 MG/ML ONE (15:50)
[2023-06-06] MEDS ORDERED: MIDAZOLAM 2 MG/2 ML VIAL ONE (15:50)
[2023-06-06] MEDS ORDERED: SUCCINYLCHOLINE CHLORIDE 200 MG/10 ML VIAL IV ONE (15:50)
[2023-06-06] MEDS: IOPAMIDOL-370 50ML BTL MISCELLANE ONE (16:20)
--- NOTE | 2023-06-06 16:42 | P.OP ---
Date of Procedure: 06/06/23 Preoperative Diagnosis: Bilateral hydronephrosis Postoperative Diagnosis: Same Procedure(s) Performed: Cystoscopy, bilateral retrograde pyelograms, bilateral ureteral stent insertion, urethral dilation Anesthesia: LEON Surgeon: Augustus Lockwood Estimated Blood Loss (ml): 0 IV fluids (ml): 200 Pathology: none sent Condition: stable Disposition: PACU Indications for Procedure: The patient is a 28-year-old white female with a history of urolithiasis. She underwent ureteroscopic removal of a 9 mm right midpole calculus in August 2021. The calculus was composed of calcium oxalate and carbonate apatite. She now presents with bilateral flank and lower abdominal pain, predominantly left- sided. Recent CT scan shows punctate right renal calculi, no left renal calculi. There is evidence of bilateral renal pelvic prominence. Ultrasound shows bilateral mild hydronephrosis. Patient also reports urinary hesitancy and intermittency. It should be noted that renal pelvic fullness has been noted on CT scans dating back to 2014. Operative Findings: Extrarenal pelvis bilaterally. Blunting of the calyces is minimal on the right, absent on the left. There is no evidence of UPJ obstruction. The bladder appeared normal, and the urethra is of normal caliber. Description of Procedure: The patient was taken to the operating room and placed in the dorsolithotomy position, with legs supported in Arnav stirrups. The external genitalia was prepped and draped sterilely. The 30 lens was used to introduce the 22-Maldivian Stortz cystoscopic sheath through the urethra and into the bladder under direct vision. The bladder was examined in its entirety. Both ureteral orifices were of normal anatomic location and configuration, and clear urine effluxed from both. No tumors or foreign bodies were seen. [place] sounds were used to dilate the urethra to 26 Maldivian. However, the urethra appeared to be of normal caliber and it did not appear that the urethra was being dilated as the [place] sounds were advanced into the bladder. The cystoscope was replaced into the bladder. Using a 10 Maldivian cone-tip catheter, bilateral retrograde pyelograms were performed. Fluoroscopy was utilized to visualize the ureters and the renal pelvis bilaterally. The ureters were normal in course and caliber bilaterally, with no filling defects seen. There was no evidence of ureteral obstruction. The renal pelvis appeared as an extrarenal pelvis bilaterally. Gentle tapering of the ureteropelvic junction was noted bilaterally, with no suggestion of UPJ obstruction. As the systems drained, it was apparent that there was no blunting of the calyces on the left and only very minimal blunting of the calyces on the right. A 0.035 inch Glidewire was passed through the cystoscope. The left ureteral orifice was cannulated, and the Glidewire was slowly advanced up to the renal pelvis. A 24 cm, 4.8-Maldivian double-J ureteral stent was placed over the wire. Proper stent positioning was verified fluoroscopically and endoscopically. The same was then repeated on the contralateral side. The bladder was emptied and the cystoscope removed. The patient tolerated the procedure well was taken to the recovery room in stable condition.
[2023-06-06 17:07] VITALS: RESP 16
[2023-06-06] MEDS: DEXAMETHASONE SOD PHOSPHATE 4 MG/ML 1 ML VIAL IV ONE (17:58)
--- NOTE | 2023-06-06 17:58 | P.DS ---
Providers Date of admission: 06/04/23 22:14 Expected date of discharge: 06/06/23 Attending physician: Marichuy Clayton MD Consults: 06/04/23 22:12 Consult Physician Urgent Consulting Provider: Aaron Lantigua Consult Reason/Comments: flank/abd pain, dysuria Do you want consulting provider notified?: Already Contacted Primary care physician: BHARATI Neri Hospital Course: Discharge Diagnosis: Recurrent nephrolithiasis with hydronephrosis. Bilateral flank pain, secondary to above. History of Graves' disease status post thyroidectomy. Continue daily medication regimen with levothyroxine 137 mcg daily. Hospital course: Patient is a very pleasant 28-year-old female with a past medical history of Graves' disease status post thyroidectomy, asthma, mitral valve prolapse, and recurrent nephrolithiasis. She presented to the emergency department on 06/04/2023 secondary to left flank pain with urinary complaints. Upon arrival to our facility, patient underwent evaluation. Vital signs in the emergency department show blood pressure 149/114, heart rate 132, respiratory rate 18, temp 97.8 F, and SpO2 of 100% on room air. Renal and bladder ultrasound completed showing mild bilateral hydronephrosis left greater than right with nonobstructing nephrolithiasis in the upper pole of right kidney. Labs completed and reviewed. CBC unremarkable. BMP revealing hyperchloremia with chloride of 109 and hypocarbia with bicarb of 20 otherwise normal findings with renal function unremarkable showing BUN of 16, creatinine of 0.57, and GFR greater than 90. Liver profile showing slightly elevated ALT of 54 otherwise normal findings. Urinalysis unremarkable showing no signs of blood, protein, ketones, or infection and urine hCG was negative. Patient was admitted under services with consultation to urology. Patient was evaluated by urology and taken for cystoscopy with bilateral retrograde pyelograms and bilateral ureteral stent insertion and urethral dilation. Patient's condition stable renal function remained unremarkable. Vital signs stable. Patient cleared from urology perspective for discharge and patient reports she is very motivated to go home. Medically, patient is stable at this time and cleared for discharge to follow-up outpatient with PCP in 1 to 2 days and with urology in 1 week. Physical exam: Vital signs reviewed and stable. General: Nontoxic, no distress and appears stated age. Derm: Skin warm and dry, normal coloration for ethnicity. Head: Atraumatic, normocephalic and symmetric. Eyes: EOMs intact, no lid lag, and anicteric sclera Mouth: no lip lesions, mucus membranes moist Cardiovascular: regular rate and rhythm with normal S1S2, no murmur, positive posterior tibial pulses bilaterally, and cap refill < 2 seconds. Lungs: Respirations even, regular, and unlabored on room air. Lungs CTA bilaterally, no rhonchi, no rales, no wheezing, and no accessory muscle usage. Abdominal: soft, nontender to palpation, no guarding, no appreciable organomegaly. Ext: ROM intact. No gross muscle atrophy, no edema, no contractures Neuro: Speech clear, face symmetrical and CN II-XII grossly intact with no noted focal neuro deficits Psych: Alert and oriented to person, place, time, and situation. Appropriate and pleasant affect. A total of 31 minutes of time were spent preparing this complex discharge summary. Pt was discharged on 06/06/2023 at 5:52 PM. Patient was seen independently by Nurse Practitioner. This document was prepared using [employer] dictation software. Please allow for errors in wrong address clerk while rare they do occur. Richard Post NP rendered care for this patient independently, reviewed the findings and plan as documented in the note above. I did not physically speak with or examine the patient on this date. Patient Condition at Discharge: Stable Plan - Discharge Summary New Discharge Prescriptions: Continue Albuterol Nebulized [Ventolin Nebulized] 2.5 mg INHALATION RT-QID PRN PRN Reason: Shortness Of Breath Albuterol Sulfate [Albuterol Sulfate Hfa] 1 - 2 puff INHALATION RT-Q4H PRN PRN Reason: Shortness Of Breath Desvenlafaxine [Pristiq ER] 100 mg PO DAILY Omeprazole 40 mg PO BID HYDROcodone/APAP 10-325MG [[place] [employer] 10-325] 1 tab PO Q8H PRN PRN Reason: Kidney Pain Metoprolol Succinate [Metoprolol Succinate ER] 25 mg PO BID Magnesium Oxide [Mag-Ox] 400 mg PO DAILY Levothyroxine Sodium [Synthroid] 137 mcg PO DAILY Dicyclomine [Bentyl] 10 mg PO QID PRN PRN Reason: Gi Upset Montelukast [Singulair] 10 mg PO DAILY ALPRAZolam [Xanax] 1 mg PO BID PRN PRN Reason: Anxiety Cholecalciferol [Vitamin D3 (25 Mcg = 1000 Iu)] 50 mcg PO DAILY ARIPiprazole [Abilify] 3 mg PO DAILY Rizatriptan Benzoate [Rizatriptan] 10 mg PO DAILY PRN PRN Reason: Migraine Headache Discharge Medication List Albuterol Nebulized [Ventolin Nebulized] 2.5 mg INHALATION RT-QID PRN 05/18/22 [History] Dicyclomine [Bentyl] 10 mg PO QID PRN 05/18/22 [History] Levothyroxine Sodium [Synthroid] 137 mcg PO DAILY 05/18/22 [History] Albuterol Sulfate [Albuterol Sulfate Hfa] 1 - 2 puff INHALATION RT-Q4H PRN 06/22 [History] ALPRAZolam [Xanax] 1 mg PO BID PRN 03/10/23 [History] Desvenlafaxine [Pristiq ER] 100 mg PO DAILY 03/10/23 [History] Montelukast [Singulair] 10 mg PO DAILY 03/10/23 [History] Cholecalciferol [Vitamin D3 (25 Mcg = 1000 Iu)] 50 mcg PO DAILY 04/25/23 [History] ARIPiprazole [Abilify] 3 mg PO DAILY 05/13/23 [History] Omeprazole 40 mg PO BID 05/13/23 [History] HYDROcodone/APAP 10-325MG [[facility] 10-325] 1 tab PO Q8H PRN 06/05/23 [History] Magnesium Oxide [Mag-Ox] 400 mg PO DAILY 06/05/23 [History] Metoprolol Succinate [Metoprolol Succinate ER] 25 mg PO BID 06/05/23 [History] Rizatriptan Benzoate [Rizatriptan] 10 mg PO DAILY PRN 06/05/23 [History] Follow up Appointment(s)/Referral(s): Augustus Lockwood MD [STAFF PHYSICIAN] - 1 Week Tiffanie Nicole NPC [Primary Care Provider] - 1-2 days Discharge Disposition: HOME SELF-CARE
[2023-06-06] MEDS: ONDANSETRON 4 MG/2 ML VIAL IVP ONE (17:59)
[2023-06-06] MEDS: LACTATED RINGERS 1,000 ML IV SCH (17:59)
[2023-06-06 18:17] VITALS: TEMP 98.1
[2023-06-06 18:52] VITALS: BP 115/80; PULSE 83
--- NOTE | 2023-06-06 19:40 | FL ---
EXAMINATION TYPE: FL urography retrograde Intraoperative/procedural fluoroscopic services were provid ed. Total fluoroscopy time is 47 seconds with a total of 14 submitted images to PACS. Please see the operative/procedural note for further details. DAP: 4.7922 mGym2 Gycm2 uGym2 cGycm2
== END 2023-06-06 18:45 | disposition home or self-care (01) | DRG 660 ==
LOC: EC 19:31 → 6NMEDSUR 22:13 → OBSVTOIN 22:14 → 6NMEDSUR 23:24
PROVIDERS: ADMIT Internal Medicine; ATTEND Internal Medicine
PROC: 0T788DZ Dilation of Bilateral Ureters with Intraluminal Device, Via Natural or Artificial Opening Endoscopic (ICD-10-PCS; principal; 2023-06-06 14:00)
PROC: BT141ZZ Fluoroscopy of Kidneys, Ureters and Bladder using Low Osmolar Contrast (ICD-10-PCS; 2023-06-06 14:00)
DX: N13.6 Pyonephrosis (principal); E87.1 Hypo-osmolality and hyponatremia; F41.9 Anxiety disorder, unspecified; F32.A Depression, unspecified; E89.0 Postprocedural hypothyroidism; Z79.890 Hormone replacement therapy; Z79.899 Other long term (current) drug therapy; Z82.49 Family history of ischemic heart disease and other diseases of the circulatory system; Z82.5 Family history of asthma and other chronic lower respiratory diseases; Z87.442 Personal history of urinary calculi; Z88.0 Allergy status to penicillin; Z88.8 Allergy status to other drugs, medicaments and biological substances; Z88.2 Allergy status to sulfonamides
CPT/HCPCS: 51798; 74420; 76770; 80048; 80053; 81003; 81025; 83690; 85025; 85027; 96374; 96375; 96376; 99285

== ENCOUNTER 2023-06-29 07:52 | Day surgery (SDC) | payer MEDICAID, OTHER ==
[2023-06-27 15:32] VITALS: BMI 30.2
[~2023-06-29 07:52] MED LIST changes: -DEXAMETHASONE SOD PHOSPHATE 4 MG/ML 1 ML VIAL IV ONE; -LACTATED RINGERS 1,000 ML IV SCH; -ONDANSETRON 4 MG/2 ML VIAL IVP ONE; -Pre Op ABX Message 1 EACH MISC MISCELLANE ONE; +SODIUM CHLORIDE 0.9% 1,000 ML IV SCH
[2023-06-29] MEDS: SODIUM CHLORIDE 0.9% 500 ML 500 ML IV ONE (08:26)
[2023-06-29 09:24] VITALS: BP 118/71; PULSE 81; RESP 16; TEMP 97.7
--- NOTE | 2023-06-29 19:01 | P.EPPROC ---
- EP Procedure Note Electrophysiology Procedure Note: Diagnosis Recurrent presyncope Twelve-lead EKG shows sinus rhythm normal AR narrow QRS normal ST segments normal QT interval Tilt table test per protocol Baseline blood pressure 116 over 71 mm millimeters of mercury and heart rate 71 beats a minute sinus mechanism Patient was tilted upright in angle of 70 degrees per protocol without any significant change in heart rate or blood pressure No symptoms noted Impression normal twelve-lead EKG Normal heart rate and blood pressure response to upright tilting
== END 2023-06-29 11:09 | disposition home or self-care (01) ==
LOC: CATHEP 07:52
PROVIDERS: ATTEND Internal Medicine Clinical Cardiac Electrophysiology
DX: R55 Syncope and collapse (principal); E03.9 Hypothyroidism, unspecified; Z82.49 Family history of ischemic heart disease and other diseases of the circulatory system; Z79.899 Other long term (current) drug therapy; Z98.890 Other specified postprocedural states
CPT/HCPCS: 81025; 93660

== ENCOUNTER 2023-06-30 13:56 | Observation (INO) | payer MEDICAID, OTHER ==
[2023-06-30] MEDS: HYDROmorphone 0.5 MG/0.5 ML SYRINGE IVP STA (14:34)
[2023-06-30] MEDS: ONDANSETRON 4 MG/2 ML VIAL IVP STA (14:34)
[2023-06-30 14:48] LABS: Basophils # (A) 0.1 k/uL (0-0.2); Basophils % (A) 1 %; Eosinophils # (A) 0.3 k/uL (0-0.7); Eosinophils % (A) 4 %; HGB 13.7 gm/dL (11.4-16.0); Lymphocytes # (A) 3.2 k/uL (1.0-4.8); Lymphocytes % (A) 42 %; MCH 33.5 pg (25.0-35.0); MCHC 35.1 g/dL (31.0-37.0); MCV 95.4 fL (80.0-100.0); Mean Platelet Volume 7.6; Monocytes # (A) 0.3 k/uL (0-1.0); Monocytes % (A) 4 %; Neutrophils # (A) 3.6 k/uL (1.3-7.7); Neutrophils % (A) 47 %; Platelet Count 257 k/uL (150-450); RBC 4.08 m/uL (3.80-5.40); RDW 12.6 % (11.5-15.5); WBC 7.7 k/uL (3.8-10.6)
[2023-06-30 15:01] LABS: ALT 63 U/L (4-34); AST 39 U/L (14-36); African American GFR (CKD) >90 (>60 ml/min/1.73 sqM); Albumin 4.4 g/dL (3.5-5.0); Alkaline Phosphatase 91 U/L (38-126); Amylase 50 U/L (30-110); Anion Gap 11 mmol/L; Blood Urea Nitrogen 13 mg/dL (7-17); Calcium 9.2 mg/dL (8.4-10.2); Carbon Dioxide 19 mmol/L (22-30); Chloride 110 mmol/L (98-107); Glucose 131 mg/dL (74-99); Lipase 66 U/L (23-300); Non-African American GFR(CKD) >90 (>60 ml/min/1.73 sqM); Potassium 4.1 mmol/L (3.5-5.1); Sodium 140 mmol/L (137-145); Total Bilirubin 0.3 mg/dL (0.2-1.3); Total Protein 7.2 g/dL (6.3-8.2)
--- NOTE | 2023-06-30 15:01 | ED ---
Abdominal Pain HPI - General Chief Complaint: Abdominal Pain Stated Complaint: Abd pain Time Seen by Provider: 06/30/23 14:12 Source: patient, RN notes reviewed Mode of arrival: ambulatory Limitations: no limitations - History of Present Illness Initial Comments: This is a 28-year-old female with past medical history of ovarian cysts and nephrolithiasis presents to the emergency department chief complaint of left lower quadrant and pelvic pain over the past 2 days worsening that is sharp in nature. She denies vaginal bleeding and LMP was 06/13/2023, denies contraception use. Patient admits that she took an at home test this morning which r evealed a faint positive line. Endorses feelings of nausea with an episode of emesis this morning. She denies fevers, constipation, diarrhea, dysuria, hematuria, shortness of breath. Use abdominal surgeries including section, laparoscopic procedure for endometriosis, and cholecystectomy. - Related Data Home Medications Medication Instructions Recorded Confirmed Albuterol Nebulized [Ventolin 2.5 mg INHALATION RT-QID PRN 05/18/22 06/30/23 Nebulized] Dicyclomine [Bentyl] 10 mg PO QID PRN 05/18/22 06/30/23 Levothyroxine Sodium [Synthroid] 137 mcg PO DAILY 05/18/22 06/30/23 Albuterol Sulfate [Albuterol 1 - 2 puff INHALATION RT-Q4H PRN 06/22/22 06/30/23 Sulfate Hfa] ALPRAZolam [Xanax] 1 mg PO BID PRN 03/10/23 06/30/23 Desvenlafaxine [Pristiq ER] See Taper PO DAILY 03/10/23 06/30/23 Montelukast [Singulair] 10 mg PO DAILY 03/10/23 06/30/23 Cholecalciferol [Vitamin D3 (25 50 mcg PO DAILY 04/25/23 06/30/23 Mcg = 1000 Iu)] ARIPiprazole [Abilify] 4 mg PO DAILY 05/13/23 06/30/23 Omeprazole 40 mg PO HS 05/13/23 06/30/23 HYDROcodone/APAP 10-325MG [[place] 1 tab PO Q8H PRN 06/05/23 06/30/23 10-325] Magnesium Oxide [Mag-Ox] 400 mg PO DAILY 06/05/23 06/30/23 Metoprolol Succinate [Metoprolol 25 mg PO BID 06/05/23 06/30/23 Succinate ER] Rizatriptan Benzoate [Rizatriptan] 10 mg PO DAILY PRN 06/05/23 06/30/23 L.acidoph,Paracasei, B.lactis 1 cap PO DAILY 06/27/23 06/30/23 [Probiotic] buPROPion XL [Wellbutrin XL] 150 mg PO DIRECTED 06/30/23 06/30/23 Allergies Allergy/AdvReac Type Severity Reaction Status Date / Time amoxicillin Allergy Rash/Hives Verified 06/30/23 18:00 nickel Allergy Rash/Hives Verified 06/30/23 18:00 sulfamethoxazole Allergy Rash/Hives Verified 06/30/23 18:00 [From ] trimethoprim [From ] Allergy Rash/Hives Verified 06/30/23 18:00 corn AdvReac Diarrhea Verified 06/30/23 18:00 Review of Systems ROS Statement: Those systems with pertinent positive or pertinent negative responses have been documented in the HPI. ROS Other: All systems not noted in ROS Statement are negative. 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, History of Any Multi-Drug Resistant Organisms: None Reported Past Surgical History: Appendectomy, Section, Cholecystectomy Additional Past Surgical History / Comment(s): thyroidectomy 09/2017, L aparoscopic exam w/ cautery endometriosis 2012 Past Anesthesia/Blood Transfusion Reactions: No Reported Reaction Past Psychological History: Anxiety, Depression Smoking Status: Never smoker Past Alcohol Use History: Occasional, Rare Past Drug Use History: None Reported - Past Family History Mother Family Medical History: Asthma Father Family Medical History: Coronary Artery Disease (CAD), CVA/TIA, Diabetes Mellitus Brother(s) Family Medical History: Asthma General Exam Limitations: no limitations General appearance: alert, in no apparent distress Head exam: Present: atraumatic, normocephalic, normal inspection Eye exam: Present: normal appearance, PERRL, EOMI. Absent: scleral icterus, conjunctival injection, periorbital swelling ENT exam: Present: normal exam, mucous membranes moist Neck exam: Present: normal inspection. Absent: tenderness, meningismus, lymphadenopathy Respiratory exam: Present: normal lung sounds bilaterally. Absent: respiratory distress, wheezes, rales, rhonchi, stridor Cardiovascular Exam: Present: regular rate, normal rhythm, normal heart sounds. Absent: systolic murmur, diastolic murmur, rubs, gallop, clicks GI/Abdominal exam: Present: soft, tenderness (LLQ and left pelvic), normal bowel sounds. Absent: distended, guarding, rebound, rigid Extremities exam: Present: normal inspection, full ROM, normal capillary refill. Absent: tenderness, pedal edema, joint swelling, calf tenderness Back exam: Present: normal inspection Neurological exam: Present: alert, oriented X3, CN II-XII intact Psychiatric exam: Present: normal affect, normal mood Skin exam: Present: warm, dry, intact, normal color. Absent: rash Course Vital Signs 06/30/23 06/30/23 06/30/23 13:59 15:03 16:00 Temperature 98.1 F 98.2 F 98 F Pulse Rate 104 H 114 H 124 H Respiratory 20 18 18 Rate Blood Pressure 136/91 142/107 135/92 O2 Sat by Pulse 99 96 96 Oximetry 06/30/23 06/30/23 17:40 18:20 Temperature 97.8 F 98.2 F Pulse Rate 113 H 96 Respiratory 18 18 Rate Blood Pressure 133/91 117/87 O2 Sat by Pulse 98 99 Oximetry Medical Decision Making - Medical Decision Making Was pt. sent in by a medical professional or institution (, PA, CELLULOSE INSULATION HELPER, urgent care, hospital, or fci...) When possible be specific @ -No Did you speak to anyone other than the patient for history (EMS, parent, family, police, friend...)? What history was obtained from this source @ -No Did you review nursing and triage notes (agree or disagree)? Why? @ -I reviewed and agree with nursing and triage notes Were old charts reviewed (outside hosp., previous admission, EMS record, old EKG, old radiological studies, urgent care reports/EKG's, fci records)? Report findings @ -No old charts were reviewed Differential Diagnosis (chest pain, altered mental status, abdominal pain women, abdominal pain men, vaginal bleeding, weakness, fever, dyspnea, syncope, headache, dizziness, GI bleed, back pain, seizure, CVA, palpatations, mental he alth, musculoskeletal)? @ -Differential Abdominal Pain Women: Appendicitis, Cholecystitis, diverticulosis, ischemic bowel, pancreatitis, hepatitis, UTI, gastroenteritis, AAA, incarcerated hernia, bowel obstruction, constipation, inflammatory bowel, hepatitis, peptic ulcer disease, splenic infarction, perforated viscus, vulvitis, ovarian torsion, PID, kidney stone, placenta abruption, this is not meant to be an all-inclusive list EKG interpreted by me (3pts min.). @ -None X-rays interpreted by me (1pt min.). @ -None done CT interpreted by me (1pt min.). @ -None done U/S interpreted by me (1pt. min.). @ -Transvaginal ultrasound reveals a small amount of fluid within the cervical canal, 1.7 cm left ovarian lesion potential hemorrhagic cyst or endometrioma What testing was considered but not performed or refused? (CT, X-rays, U/S, labs)? Why? @ -None What meds were considered but not given or refused? Why? @ -None Did you discuss the management of the patient with other professionals (professionals i.e. , PA, CELLULOSE INSULATION HELPER, lab, RT, psych nurse, drug abuse social worker, turntable operator, teacher, officer lieutenant, major case detective)? Give summary @ -I spoke with my attending Dr. Vieira in regard to the patient. At this time it was recommended that the patient be admitted for intractable pain. I spoke with Dr. Oakes who accepts the patient and states she will round on her in the morning. Was smoking cessation discussed for >3mins.? @ -No Was critical care preformed (if so, how long)? @ -No Were there social determinants of health that impacted care today? How? (Homelessness, low income, unemployed, alcoholism, drug addiction, transportation, low edu. Level, literacy, decrease access to med. care, intermediate, rehab)? @ -No Was there de-escalation of care discussed even if they declined (Discuss DNR or withdrawal of care, Hospice)? DNR status @ -No What co-morbidities impacted this encounter? (DM, HTN, Smoking, COPD, CAD, Cancer, CVA, ARF, Chemo, Hep., AIDS, mental health diagnosis, sleep apnea, morbid obesity)? @ -None Was patient admitted / discharged? Hospital course, mention meds given and route, prescriptions, significant lab abnormalities, going to OR and other pertinent info. @ -28-year-old female left lower quadrant and pelvic pain. On examination patient noted to have pain on palpation of the left lower quadrant and pelvic region. CBC and CMP unremarkable. Amylase and lipase non-elevated. Urinalysis unremarkable presents infection, urine hCG not detected. After review of ultrasound interpretation, beta-hCG quantitative serum study ordered for further evaluation. Additionally, on reevaluation patient is still experiencing pain therefore additional pain medication given. Patient's urinalysis unremarkable for signs of infection, urine hCG negative. Additionally, serum hCG negative. Reevaluation of the patient she is still experiencing pain. Shared decision making she will be admitted to observation to OB gynecology for further evaluation. As needed pain medication and nausea medication as ordered. Case was discussed with my attending Dr. Vieira Undiagnosed new problem with uncertain prognosis? @ -No Drug Therapy requiring intensive monitoring for toxicity (Heparin, Nitro, Insulin, Cardizem)? @ -No Were any procedures done? @ -No Diagnosis/symptom? @ -pelvic pain, hemorrhagic cyst vs endometrioma Acute, or Chronic, or Acute on Chronic? @ -acute Uncomplicated (without systemic symptoms) or Complicated (systemic symptoms)? @ uncomplicated Side effects of treatment? @ -No Exacerbation, Progression, or Severe Exacerbation? @ -No Poses a threat to life or bodily function? How? (Chest pain, [place], [place], pneumonia, PE, COPD, DKA, ARF, appy, cholecystitis, CVA, Diverticulitis, Homicidal, Suicidal, threat to staff... and all critical care pts) @ -No - Lab Data Result diagrams: 06/30/23 14:40 06/30/23 14:40 Lab Results 06/30/23 06/30/23 06/30/23 Range/Units 14:40 14:40 14:40 WBC 7.7 (3.8-10.6) k/uL RBC 4.08 (3.80-5.40) m/uL Hgb 13.7 (11.4-16.0) gm/dL Hct 39.0 (34.0-46.0) % MCV 95.4 (80.0-100.0) fL MCH 33.5 (25.0-35.0) pg MCHC 35.1 (31.0-37.0) g/dL RDW 12.6 (11.5-15.5) % Plt Count 257 (150-450) k/uL MPV 7.6 Neutrophils % 47 % Lymphocytes % 42 % Monocytes % 4 % Eosinophils % 4 % Basophils % 1 % Neutrophils # 3.6 (1.3-7.7) k/uL Lymphocytes # 3.2 (1.0-4.8) k/uL Monocytes # 0.3 (0-1.0) k/uL Eosinophils # 0.3 (0-0.7) k/uL Basophils # 0.1 (0-0.2) k/uL Sodium 140 (137-145) mmol/L Potassium 4.1 (3.5-5.1) mmol/L Chloride 110 H (98-107) mmol/L Carbon Dioxide 19 L (22-30) mmol/L Anion Gap 11 mmol/L BUN 13 (7-17) mg/dL Creatinine 0.66 (0.52-1.04) mg/dL Est GFR (CKD-EPI)AfAm >90 (>60 ml/min/1.73 sqM) Est GFR (CKD-EPI)NonAf >90 (>60 ml/min/1.73 sqM) Glucose 131 H (74-99) mg/dL Plasma Lactic Acid Beau 1.8 (0.7-2.0) mmol/L Calcium 9.2 (8.4-10.2) mg/dL Total Bilirubin 0.3 (0.2-1.3) mg/dL AST 39 H (14-36) U/L ALT 63 H (4-34) U/L Alkaline Phosphatase 91 (38-126) U/L Total Protein 7.2 (6.3-8.2) g/dL Albumin 4.4 (3.5-5.0) g/dL Amylase 50 (30-110) U/L Lipase 66 (23-300) U/L HCG, Quant mIU/mL Urine Color Urine Appearance (Clear) Urine pH (5.0-8.0) Ur Specific [place] (1.001-1.035) Urine Protein (Negative) Urine Glucose (UA) (Negative) Urine Ketones (Negative) Urine Blood (Negative) Urine Nitrite (Negative) Urine Bilirubin (Negative) Urine Urobilinogen (<2.0) mg/dL Ur Leukocyte Esterase (Negative) Urine HCG, Qual (Not Detectd) 06/30/23 06/30/23 06/30/23 Range/Units 14:40 14:55 14:55 WBC (3.8-10.6) k/uL RBC (3.80-5.40) m/uL Hgb (11.4-16.0) gm/dL Hct (34.0-46.0) % MCV (80.0-100.0) fL MCH (25.0-35.0) pg MCHC (31.0-37.0) g/dL RDW (11.5-15.5) % Plt Count (150-450) k/uL MPV Neutrophils % % Lymphocytes % % Monocytes % % Eosinophils % % Basophils % % Neutrophils # (1.3-7.7) k/uL Lymphocytes # (1.0-4.8) k/uL Monocytes # (0-1.0) k/uL Eosinophils # (0-0.7) k/uL Basophils # (0-0.2) k/uL Sodium (137-145) mmol/L Potassium (3.5-5.1) mmol/L Chloride (98-107) mmol/L Carbon Dioxide (22-30) mmol/L Anion Gap mmol/L BUN (7-17) mg/dL Creatinine (0.52-1.04) mg/dL Est GFR (CKD-EPI)AfAm (>60 ml/min/1.73 sqM) Est GFR (CKD-EPI)NonAf (>60 ml/min/1.73 sqM) Glucose (74-99) mg/dL Plasma Lactic Acid Beau (0.7-2.0) mmol/L Calcium (8.4-10.2) mg/dL Total Bilirubin (0.2-1.3) mg/dL AST (14-36) U/L ALT (4-34) U/L Alkaline Phosphatase (38-126) U/L Total Protein (6.3-8.2) g/dL Albumin (3.5-5.0) g/dL Amylase (30-110) U/L Lipase (23-300) U/L HCG, Quant <2.4 mIU/mL Urine Color Colorless Urine Appearance Clear (Clear) Urine pH 6.0 (5.0-8.0) Ur Specific [place] 1.016 (1.001-1.035) Urine Protein Negative (Negative) Urine Glucose (UA) Negative (Negative) Urine Ketones Negative (Negative) Urine Blood Negative (Negative) Urine Nitrite Negative (Negative) Urine Bilirubin Negative (Negative) Urine Urobilinogen <2.0 (<2.0) mg/dL Ur Leukocyte Esterase Negative (Negative) Urine HCG, Qual Not Detected (Not Detectd) Disposition Clinical Impression: Pelvic pain, Intractable pain Disposition: ADMITTED IP TO THIS [facility] Condition: Good Decision to Admit Reason: Admit from [facility]
[2023-06-30] MEDS: MORPHINE SULFATE 2 MG/ML SYRINGE IVP ONE (15:04)
--- NOTE | 2023-06-30 15:12 | US ---
EXAMINATION TYPE: US transvaginal DATE OF EXAM: 06/30/2023 COMPARISON: 03/28/2023 CLINICAL INDICATION: Female, 28 years old with history of LLQ pain 2 D, hx ovarian cyst; LLQ pain for 1 day TECHNIQUE: Transvaginal (TV). Date of LMP: 06/13/23 EXAM MEASUREMENTS: Uterus: 9.3 x 4.1 x 4.8 cm Endometrial Stripe: 0.5 cm Right Ovary: 3.1 x 1.7 x 1.8 cm Left Ovary: 4.0 x 2.9 x 2.1 cm 1. Uterus: Anteverted fluid within cervical canal 2. Endometrium: wnl 3. Right Ovary: follicles noted 4. Left Ovary: complex lesion = 1.5 x 1.7 x 1.6cm Spectral, color and waveform doppler imaging shows good arterial and venous flow within the ovaries ; there is no evidence for ovarian torsion. 5. Bilateral Adnexa: wnl 6. Posterior cul-de-sac: small amount of free fluid IMPRESSION: 1. Small amount of fluid within the cervical canal is nonspecific. 2. Small amount of free fluid in the pelvis with a complex 1.7 cm left ovarian lesion. Hemorrhagic cy st or endometrioma in the differential diagnosis. Ovarian neoplasm is not excluded. Recommend correla tion with beta hCG to exclude ectopic . Recommend serial pelvic ultrasound for resolution.
[2023-06-30 15:46] LABS: Appearance,Urine Clear (Clear); Bilirubin,Urine Negative (Negative); Blood,Urine Negative (Negative); Color,Urine Colorless; Glucose,Urine (UA) Negative (Negative); Ketones,Urine Negative (Negative); Leukocyte Esterase,Urine Negative (Negative); Nitrite,Urine Negative (Negative); Protein,Urine Negative (Negative); Specific Gravity,Urine 1.016 (1.001-1.035); Urobilinogen,Urine <2.0 mg/dL (<2.0)
[2023-06-30] MEDS: HYDROmorphone 1 MG/ML 1 ML SYRINGE IVP STA (16:12)
[2023-06-30] MEDS ORDERED: NALOXONE 0.4 MG/ML 1 ML VIAL IV PRN (17:04)
[2023-06-30] MEDS ORDERED: ACETAMINOPHEN TAB 325 MG TAB PO PRN (17:58)
[2023-06-30] MEDS: MORPHINE SULFATE 4 MG/ML SYRINGE IVP PRN (18:10)
[2023-06-30] MEDS ORDERED: ONDANSETRON 4 MG/2 ML VIAL IVP PRN (18:24)
[2023-06-30] MEDS: KETOROLAC 15 MG/ML 1 ML VIAL IVP SCH (21:03)
[2023-06-30] MEDS: METOPROLOL SUCCINATE (ER) 25 MG TAB.ER.24H PO SCH (21:56)
[2023-06-30] MEDS: PANTOPRAZOLE 40 MG TABLET PO SCH (22:08)
[2023-07-01 03:23] VITALS: RESP 16
[2023-07-01] MEDS: LEVOTHYROXINE 137 MCG TAB PO SCH (06:27)
--- NOTE | 2023-07-01 08:09 | P.HPOB ---
History of Present Illness H&P Date: 07/01/23 Chief Complaint: Left lower quadrant pain Ms. Wesley is a 28 year old who presented yesterday evening to the emergency room with 8/10 left lower quadrant pain that was not resolved with morphine and dilaudid. Pelvic US showed a 1.5 x 1.6 x 1.7 centimeter complex hem orrhagic cyst. The pain had been present for the past 2 days and was progressively worsening. She did have accompanying nausea. Labwork and UA the ER were unremarkable. B-HCG quant and qualitative tests were negative. Diagnosis of hemorrhagic cyst was made and the patient was admitted for pain management overnight. OBGYN history: LMP 06/13/23. Patient previously on OCPs, but discontinued 6 months ago. States periods have been slightly irregular since discontinuation. The patient is sexually active with her and not using contraception, open to . History of 1 FTCS and 3 SABs. Past Medical History: Endometriosis Social History: Social EtOH use, otherwise negative. 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 freelance patternmaker, History of Any Multi-Drug Resistant Organisms: None Reported Past Surgical History: Appendectomy, Section, Cholecystectomy Additional Past Surgical History / Comment(s): thyroidectomy 09/2017, Laparoscopic exam w/ cautery endometriosis 2012 Past Anesthesia/Blood Transfusion Reactions: No Reported Reaction Past Psychological History: Anxiety, Depression Smoking Status: Never smoker Past Alcohol Use History: Occasional, Rare Past Drug Use History: None Reported - Past Family History Mother Family Medical History: Asthma Father Family Medical History: Coronary Artery Disease (CAD), CVA/TIA, Diabetes Mellitus Brother(s) Family Medical History: Asthma Medications and Allergies Home Medications Medication Instructions Recorded Confirmed Type Albuterol Nebulized [Ventolin 2.5 mg INHALATION RT-QID PRN 05/18/22 06/30/23 History Nebulized] Dicyclomine [Bentyl] 10 mg PO QID PRN 05/18/22 06/30/23 History Levothyroxine Sodium [Synthroid] 137 mcg PO DAILY 05/18/22 06/30/23 History Albuterol Sulfate [Albuterol 1 - 2 puff INHALATION RT-Q4H PRN 06/22/22 06/30/23 History Sulfate Hfa] ALPRAZolam [Xanax] 1 mg PO BID PRN 03/10/23 06/30/23 History Desvenlafaxine [Pristiq ER] See Taper PO DAILY 03/10/23 06/30/23 History Montelukast [Singulair] 10 mg PO DAILY 03/10/23 06/30/23 History Cholecalciferol [Vitamin D3 (25 50 mcg PO DAILY 04/25/23 06/30/23 History Mcg = 1000 Iu)] ARIPiprazole [Abilify] 4 mg PO DAILY 05/13/23 06/30/23 History Omeprazole 40 mg PO HS 05/13/23 06/30/23 History HYDROcodone/APAP 10-325MG [[place] 1 tab PO Q8H PRN 06/05/23 06/30/23 History 10-325] Magnesium Oxide [Mag-Ox] 400 mg PO DAILY 06/05/23 06/30/23 History Metoprolol Succinate [Metoprolol 25 mg PO BID 06/05/23 06/30/23 History Succinate ER] Rizatriptan Benzoate [Rizatriptan] 10 mg PO DAILY PRN 06/05/23 06/30/23 History L.acidoph,Paracasei, B.lactis 1 cap PO DAILY 06/27/23 06/30/23 History [Probiotic] buPROPion XL [Wellbutrin XL] 150 mg PO DIRECTED 06/30/23 06/30/23 History Allergies Allergy/AdvReac Type Severity Reaction Status Date / Time amoxicillin Allergy Rash/Hives Verified 06/30/23 18:00 nickel Allergy Rash/Hives Verified 06/30/23 18:00 sulfamethoxazole Allergy Rash/Hives Verified 06/30/23 18:00 [From ] trimethoprim [From ] Allergy Rash/Hives Verified 06/30/23 18:00 corn AdvReac Diarrhea Verified 06/30/23 18:00 Exam Vital Signs Temp Pulse Pulse Resp BP BP Pulse Ox 07/01/23 02:00 97.9 F 76 16 107/75 96 06/30/23 22:00 98.1 F 94 18 121/88 98 06/30/23 18:45 98.1 F 96 16 144/91 98 06/30/23 18:20 98.2 F 96 18 117/87 99 06/30/23 17:40 97.8 F 113 H 18 133/91 98 06/30/23 16:00 98 F 124 H 18 135/92 96 06/30/23 15:03 98.2 F 114 H 18 142/107 96 06/30/23 13:59 98.1 F 104 H 20 136/91 99 Intake and Output 06/30/23 07/01/23 07/01/23 22:59 06:59 14:59 Other: # Voids 2 2 Weight 72.575 kg His physical exam is performed this morning. This is a healthy-appearing female in no apparent distress. Breathing is nonlabored. Abdomen is soft and mildly tender in the left lower quadrant to palpation. There are no peritoneal signs. Extremities are nontender and nonedematous. Results Result Diagrams: 06/30/23 14:40 06/30/23 14:40 Abnormal Lab Results - Last 24 Hours (Table) 06/30/23 Range/Units 14:40 Chloride 110 H (98-107) mmol/L Carbon Dioxide 19 L (22-30) mmol/L Glucose 131 H (74-99) mg/dL AST 39 H (14-36) U/L ALT 63 H (4-34) U/L Assessment and Plan Assessment: 28 year old on hospital day #2 for pain management during acute hemorrhagic cyst rupture Plan: Patient feels much better this morning. Pain is mild, she rates it 5 out of 10 at worst. She desires discharge home today. She can use Motrin and Tylenol [id number] as needed for pain. She will follow-up with Dr. Morris in the office next week. Time with Patient: Less than 30
--- NOTE | 2023-07-01 08:13 | P.DS ---
Providers Date of admission: 06/30/23 17:39 Expected date of discharge: 07/01/23 Attending physician: Minnie Oakes MD Primary [facility] [place] [facility] Course: Ms. Wesley is a 28 year old who was admitted overnight for acute pain management with rupturing hemorrhagic cyst. She presented yesterday evening to the emergency room with 8/10 left lower quadrant pain that was not resolved with morphine and dilaudid. Pelvic US showed a 1.5 x 1.6 x 1.7 centimeter complex hemorrhagic cyst. The pain had been present for the past 2 days and was progressively worsening. She did have accompanying nausea. Labwork and UA the ER were unremarkable. B-HCG quant and qualitative tests were negative. Diagnosis of hemorrhagic cyst was made and the patient was admitted for pain management overnight. The patient is feeling much better this morning. Her pain has diminished to mild pain, she rates it 5 out of 10 at worst or even better at times. She desires discharge home today. We discussed that a follow-up ult rasshaggy in approximately 12 weeks would be appropriate in the outpatient setting to check for cyst resolution. She should follow-up with Dr. Morris in the office in the coming weeks. She will use [id number] Motrin and or Tylenol as needed for pain. All questions were answered Assessment: 28 year old with rupturing hemorrhagic cyst, admitted for pain control Patient Condition at Discharge: Good Plan - Discharge Summary New Discharge Prescriptions: No Action Albuterol Nebulized [Ventolin Nebulized] 2.5 mg INHALATION RT-QID PRN PRN Reason: Shortness Of Breath Albuterol Sulfate [Albuterol Sulfate Hfa] 1 - 2 puff INHALATION RT-Q4H PRN PRN Reason: Shortness Of Breath Desvenlafaxine [Pristiq ER] See Taper PO DAILY Omeprazole 40 mg PO HS HYDROcodone/APAP 10-325MG [[place] 10-325] 1 tab PO Q8H PRN PRN Reason: Kidney Pain Metoprolol Succinate [Metoprolol Succinate ER] 25 mg PO BID Magnesium Oxide [Mag-Ox] 400 mg PO DAILY buPROPion XL [Wellbutrin XL] 150 mg PO DIRECTED Levothyroxine Sodium [Synthroid] 137 mcg PO DAILY Dicyclomine [Bentyl] 10 mg PO QID PRN PRN Reason: Gi Upset Montelukast [Singulair] 10 mg PO DAILY ALPRAZolam [Xanax] 1 mg PO BID PRN PRN Reason: Anxiety Cholecalciferol [Vitamin D3 (25 Mcg = 1000 Iu)] 50 mcg PO DAILY ARIPiprazole [Abilify] 4 mg PO DAILY Rizatriptan Benzoate [Rizatriptan] 10 mg PO DAILY PRN PRN Reason: Migraine Headache L.acidoph,Paracasei, B.lactis [Probiotic] 1 cap PO DAILY Discharge Medication List Albuterol Nebulized [Ventolin Nebulized] 2.5 mg INHALATION RT-QID PRN 05/18/22 [History] Dicyclomine [Bentyl] 10 mg PO QID PRN 05/18/22 [History] Levothyroxine Sodium [Synthroid] 137 mcg PO DAILY 05/18/22 [History] Albuterol Sulfate [Albuterol Sulfate Hfa] 1 - 2 puff INHALATION RT-Q4H PRN 06/22/22 [History] ALPRAZolam [Xanax] 1 mg PO BID PRN 03/10/23 [History] Desvenlafaxine [Pristiq ER] See Taper PO DAILY 03/10/23 [History] Montelukast [Singulair] 10 mg PO DAILY 03/10/23 [History] Cholecalciferol [Vitamin D3 (25 Mcg = 1000 Iu)] 50 mcg PO DAILY 04/25/23 [History] ARIPiprazole [Abilify] 4 mg PO DAILY 05/13/23 [History] Omeprazole 40 mg PO HS 05/13/23 [History] HYDROcodone/APAP 10-325MG [[place] 10-325] 1 tab PO Q8H PRN 06/05/23 [History] Magnesium Oxide [Mag-Ox] 400 mg PO DAILY 06/05/23 [History] Metoprolol Succinate [Metoprolol Succinate ER] 25 mg PO BID 06/05/23 [History] Rizatriptan Benzoate [Rizatriptan] 10 mg PO DAILY PRN 06/05/23 [History] L.acidoph,Paracasei, B.lactis [Probiotic] 1 cap PO DAILY 06/27/23 [History] buPROPion XL [Wellbutrin XL] 150 mg PO DIRECTED 06/30/23 [History] Follow up Appointment(s)/Referral(s): Tiffanie Graham MD [Primary Care Provider] - 1-2 days Nohemi Morris DO [Doctor of Osteopathic Medicine] - 1 Week Patient Instructions/Handouts: Ovarian Cyst (DC) Discharge Disposition: HOME SELF-CARE
[2023-07-01] MEDS: DESVENLAFAXINE SUCCINATE 50 MG TAB.ER.24H PO SCH (08:23)
[2023-07-01] MEDS: ARIPiprazole 2 MG TAB PO SCH (08:23)
[2023-07-01] MEDS: MONTELUKAST 10 MG TAB PO SCH (08:23)
[2023-07-01] MEDS: MAGNESIUM OXIDE 400 MG TAB PO SCH (08:23)
[2023-07-01 09:09] VITALS: BP 118/79; PULSE 89; TEMP 98
[2023-07-01] MEDS ORDERED: PANTOPRAZOLE 40 MG TABLET PO SCH (21:00)
== END 2023-07-01 08:45 | disposition home or self-care (01) ==
LOC: EC 13:56 → SUPCPDRO 13:56 → 4FBP 17:39
PROVIDERS: ADMIT Obstetrics & Gynecology; ATTEND Obstetrics & Gynecology
DX: N83.202 Unspecified ovarian cyst, left side (principal); Z79.890 Hormone replacement therapy; Z79.899 Other long term (current) drug therapy; Z88.1 Allergy status to other antibiotic agents; Z88.0 Allergy status to penicillin; Z88.2 Allergy status to sulfonamides; Z91.018 Allergy to other foods; Z91.048 Other nonmedicinal substance allergy status; Z87.42 Personal history of other diseases of the female genital tract; Z87.442 Personal history of urinary calculi; Z90.49 Acquired absence of other specified parts of digestive tract; Z98.891 History of uterine scar from previous surgery; Z98.890 Other specified postprocedural states
CPT/HCPCS: 96376 ×3; 96374; 96375; 99285; 36415; 80053; 82150; 83605; 83690; 85025; 81003; 81025; 84702; 93975; 76830; G0378 ×2; J2270 ×2; J2405; J1170 ×2; J1885 ×2

== ENCOUNTER 2023-07-03 19:23 | Emergency (ER) | payer MEDICAID, OTHER ==
--- NOTE | 2023-07-03 20:18 | ED ---
Abdominal Pain HPI - General Chief Complaint: Abdominal Pain Stated Complaint: L Ovarian Pain Time Seen by Provider: 07/03/23 20:17 Source: patient Mode of arrival: ambulatory Limitations: no limitations - History of Present Illness Initial Comments: Quick note: 28-year-old female presenting with chief complaint of abdominal pain. She is having left-sided pelvic pain which she attributes to a pre- existing ovarian cyst. She was recently admitted for pain management regarding this cyst, discharged 2 days ago. States that Dr. Clement told her to be reev aluated if pain worsened. This is a sharp pain. - Related Data Home Medications Medication Instructions Recorded Confirmed Albuterol Nebulized [Ventolin 2.5 mg INHALATION RT-QID PRN 05/18/22 06/30/23 Nebulized] Dicyclomine [Bentyl] 10 mg PO QID PRN 05/18/22 06/30/23 Levothyroxine Sodium [Synthroid] 137 mcg PO DAILY 05/18/22 06/30/23 Albuterol Sulfate [Albuterol 1 - 2 puff INHALATION RT-Q4H PRN 06/22/22 06/30/23 Sulfate Hfa] ALPRAZolam [Xanax] 1 mg PO BID PRN 03/10/23 06/30/23 Desvenlafaxine [Pristiq ER] See Taper PO DAILY 03/10/23 06/30/23 Montelukast [Singulair] 10 mg PO DAILY 03/10/23 06/30/23 Cholecalciferol [Vitamin D3 (25 50 mcg PO DAILY 04/25/23 06/30/23 Mcg = 1000 Iu)] ARIPiprazole [Abilify] 4 mg PO DAILY 05/13/23 06/30/23 Omeprazole 40 mg PO HS 05/13/23 06/30/23 HYDROcodone/APAP 10-325MG [[place] 1 tab PO Q8H PRN 06/05/23 06/30/23 10-325] Magnesium Oxide [Mag-Ox] 400 mg PO DAILY 06/05/23 06/30/23 Metoprolol Succinate [Metoprolol 25 mg PO BID 06/05/23 06/30/23 Succinate ER] Rizatriptan Benzoate [Rizatriptan] 10 mg PO DAILY PRN 06/05/23 06/30/23 L.acidoph,Paracasei, B.lactis 1 cap PO DAILY 06/27/23 06/30/23 [Probiotic] buPROPion XL [Wellbutrin XL] 150 mg PO DIRECTED 06/30/23 06/30/23 Allergies Allergy/AdvReac Type Severity Reaction Status Date / Time amoxicillin Allergy Rash/Hives Verified 07/03/23 20:08 nickel Allergy Rash/Hives Verified 07/03/23 20:08 sulfamethoxazole Allergy Rash/Hives Verified 07/03/23 20:08 [From Octra] trimethoprim [From ] Allergy Rash/Hives Verified 07/03/23 20:08 corn AdvReac Diarrhea Verified 07/03/23 20:08 Review of Systems ROS Statement: Those systems with pertinent positive or pertinent negative responses have been documented in the HPI. ROS Other: All systems not noted in ROS Statement are negative. 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 cardiology specialist, History of Any Multi-Drug Resistant Organisms: None Reported Past Surgical History: Appendectomy, Section, Cholecystectomy Additional Past Surgical History / Comment(s): thyroidectomy 09/2017, Laparoscopic exam w/ cautery endometriosis 2012 Past Anesthesia/Blood Transfusion Reactions: No Reported Reaction Past Psychological History: Anxiety, Depression Smoking Status: Never smoker Past Alcohol Use History: Occasional, Rare Past Drug Use History: None Reported - Past Family History Mother Family Medical History: Asthma Father Family Medical History: Coronary Artery Disease (CAD), CVA/TIA, Diabetes Mellitus Brother(s) Family Medical History: Asthma General Exam - General Exam Comments Initial Comments: Visual Physical Exam Vital signs reviewed General: Well-appearing, nontoxic, no acute distress. Head: Normocephalic, atraumatic Eyes: PERRLA, EOMI ENT: Airway patent Chest: Nonlabored breathing Skin: No visual rash, normal skin tone Neuro: Alert and oriented 3 Musculoskeletal: No gross abnormalities Limitations: no limitations General appearance: alert, in no apparent distress Head exam: Present: atraumatic, normocephalic Eye exam: Present: normal appearance, EOMI Neck exam: Present: normal inspection. Absent: meningismus Respiratory exam: Absent: respiratory distress Neurological exam: Present: alert, oriented X3 Psychiatric exam: Present: normal affect, normal mood Skin exam: Present: warm, dry Course Vital Signs 07/03/23 07/04/23 20:06 00:14 Temperature 98.2 F 97.7 F Pulse Rate 118 H 78 Respiratory 20 12 Rate Blood Pressure 139/87 120/88 O2 Sat by Pulse 98 97 Oximetry Medical Decision Making - Medical Decision Making I performed the quick note portion of this visit, electronically signed Danika Baltazar PA-C Was pt. sent in by a medical professional or institution ([facility] Heredia, AGENT PRODUCER, urgent care, hospital, or long term...) When possible be specific @ -No Did you speak to anyone other than the patient for history (EMS, parent, family, police, friend...)? What history was obtained from this source @ -No Did you review nursing and triage notes (agree or disagree)? Why? @ -I reviewed and agree with nursing and triage notes Were old charts reviewed (outside hosp., previous admission, EMS record, old EKG, old radiological studies, urgent care reports/EKG's, long term records)? Report findings @ -I reviewed the patient's recent admission for pain management Differential Diagnosis (chest pain, altered mental status, abdominal pain women, abdominal pain men, vaginal bleeding, weakness, fever, dyspnea, syncope, headach e, dizziness, GI bleed, back pain, seizure, CVA, palpatations, mental health, musculoskeletal)? @ -[facility] [place] Differential Abdominal Pain Women: Appendicitis, Cholecystitis, diverticulosis, ischemic bowel, pancreatitis, hepatitis, UTI, gastroenteritis, AAA, incarcerated hernia, bowel obstruction, constipation, inflammatory bowel, hepatitis, peptic ulcer disease, splenic infarction, perforated viscus, vulvitis, ovarian torsion, PID, kidney stone, placenta abruption... This is not meant to be an all-inclusive list EKG interpreted by me (3pts min.). @ -As above X-rays interpreted by me (1pt min.). @ -None done CT interpreted by me (1pt min.). @ -None done U/S interpreted by me (1pt. min.). @ -Ultrasound shows 1.9 cm mass in the left ovary with echogenic ring and anechoic center is again seen with a small amount of free fluid within the cul-de-sac. Ectopic not excluded and correlation with beta hCG and short-term follow-up is recommended. Second 2.2 cm echogenic mass is seen in the left ovary as well. As stated previously neoplasm is not entirely excluded. Short-term serial pelvic ultrasound versus MRI of the pelvis would be useful for further evaluation What testing was considered but not performed or refused? (CT, X-rays, U/S, labs)? Why? @ -None What meds were considered but not given or refused? Why? @ -None Did you discuss the management of the patient with other professionals (professionals i.e. DrMarc, PA, AGENT PRODUCER, lab, RT, psych nurse, social media senior associate, case monitor, teacher, contact officer, case mgr)? Give summary @ -No Was smoking cessation discussed for >3mins.? @ -No Was critical care preformed (if so, how long)? @ -No Were there social determinants of health that impacted care today? How? (Homelessness, low income, unemployed, alcoholism, drug addiction, transportation, low edu. Level, literacy, decrease access to med. care, group home, rehab)? @ -No Was there de-escalation of care discussed even if they declined (Discuss DNR or withdrawal of care, Hospice)? DNR status @ -No What co-morbidities impacted this encounter? (DM, HTN, Smoking, COPD, CAD, Cancer, CVA, ARF, Chemo, Hep., AIDS, mental health diagnosis, sleep apnea, morbid obesity)? @ -None Was patient admitted / discharged? Hospital course, mention meds given and route, prescriptions, significant lab abnormalities, going to OR and other pertinent info. @ -28-year-old female presenting with chief complaint of left-sided pelvic pain. History of ovarian cyst. She was recently admitted for pain management regarding this cyst, discharged 2 days ago. I evaluated this patient as a quick note. Ultrasound showed 1.9 cm mass to the left ovary as well as a second 2.2 cm echogenic mass to the left ovary. She has a negative hCG and urine shows no infectious process or bleeding. I spoke with Dr. Clement who states that earlier she advised that the patient can be seen in the office tomorrow by Dr. Morris. She reports that she did tell the patient if she was experiencing worsening pain she could be reevaluated in the ER. Patient later requested discharge from the waiting room. Will follow-up with her TAPER AND FLOATER in the office tomorrow. I discussed this case with my attending Dr. Ibarra Undiagnosed new problem with uncertain prognosis? @ -No Drug Therapy requiring intensive monitoring for toxicity (Heparin, Nitro, Insulin, Cardizem)? @ -No Were any procedures done? @ -No Diagnosis/symptom? @ -Pelvic pain, ovarian cyst Acute, or Chronic, or Acute on Chronic? @ -Acute on chronic Uncomplicated (without systemic symptoms) or Complicated (systemic symptoms)? @ -Uncomplicated Side effects of treatment? @ -No Exacerbation, Progression, or Severe Exacerbation? @ -No - Lab Data Lab Results 07/03/23 07/03/23 Range/Units 21:50 21:50 Urine Color Colorless Urine Appearance Clear (Clear) Urine pH 6.5 (5.0-8.0) Ur Specific [place] 1.015 (1.001-1.035) Urine Protein Negative (Negative) Urine Glucose (UA) Negative (Negative) Urine Ketones Negative (Negative) Urine Blood Negative (Negative) Urine Nitrite Negative (Negative) Urine Bilirubin Negative (Negative) Urine Urobilinogen <2.0 (<2.0) mg/dL Ur Leukocyte Esterase Negative (Negative) Urine HCG, Qual Not Detected (Not Detectd) Disposition Clinical Impression: Ovarian cyst Disposition: HOME SELF-CARE Condition: Fair Instructions (If sedation given, give patient instructions): Ovarian Cyst (ED) Additional Instructions: Follow-up with your TAPER AND FLOATER in the office tomorrow. Report back to ER with any new or worsening symptoms. Is patient prescribed a controlled substance at d/c from ED?: No Referrals: Tiffanie Graham MD [Primary Care Provider] - 1-2 days Nohemi Morris DO [Doctor of Osteopathic Medicine] - 1-2 days Time of Disposition: 00:00
--- NOTE | 2023-07-03 21:56 | US ---
EXAMINATION TYPE: US transvaginal DATE OF EXAM: 07/03/2023 COMPARISON: 06/30/23 CLINICAL INDICATION: Female, 28 years old with history of L sided pelvic pain; L sided pelvic pain TECHNIQUE: Transvaginal (TV). Date of LMP: 06/13/23 EXAM MEASUREMENTS: Uterus: 8.4 x 4.7 x 3.6 cm Endometrial Stripe: 1.2 cm Right Ovary: 3.1 x 2.1 x 1.9 cm Left Ovary: 3.6 x 2.5 x 2.6 cm 1. Uterus: Anteverted wnl 2. Endometrium: wnl 3. Right Ovary: Multiple subcentimeter follicles seen 4. Left Ovary: Echogenic area seen measuring 1.9 x 1.6 x 1.8cm. Another echogenic area seen with ane choic center measuring 2.2 x 1.6 x 2.1cm Spectral, color and waveform doppler imaging shows good arterial and venous flow within the ovaries ; there is no evidence for ovarian torsion. 5. Bilateral Adnexa: wnl 6. Posterior cul-de-sac: Small amount of free fluid seen IMPRESSION: A 1.9 cm mass in the left ovary with an echogenic ring and anechoic center is again seen with a small amount of free fluid within the cul-de-sac. Ectopic not excluded in correlatio n with beta hCG and short-term follow-up is recommended. Second 2.2 cm echogenic mass is seen in the left ovary as well. As stated previously, neoplasm is not entirely excluded. Short-term serial pelvic ultrasound versus MRI of the pelvis would be useful for further evaluation.
[2023-07-03 22:14] LABS: Appearance,Urine Clear (Clear); Bilirubin,Urine Negative (Negative); Blood,Urine Negative (Negative); Color,Urine Colorless; Glucose,Urine (UA) Negative (Negative); Ketones,Urine Negative (Negative); Leukocyte Esterase,Urine Negative (Negative); Nitrite,Urine Negative (Negative); PH, Urine 6.5 (5.0-8.0); Protein,Urine Negative (Negative); Specific Gravity,Urine 1.015 (1.001-1.035); Urobilinogen,Urine <2.0 mg/dL (<2.0)
[2023-07-04 00:39] VITALS: BP 120/88; PULSE 78; RESP 12; TEMP 97.7
== END 2023-07-04 00:18 | disposition home or self-care (01) ==
LOC: EC 19:23
DX: N83.202 Unspecified ovarian cyst, left side (principal); Z88.0 Allergy status to penicillin; Z88.1 Allergy status to other antibiotic agents; Z88.2 Allergy status to sulfonamides; Z91.09 Other allergy status, other than to drugs and biological substances
CPT/HCPCS: 76830; 81003; 81025; 93975; 99284

== ENCOUNTER 2023-07-05 13:57 | Emergency (ER) | payer MEDICAID, OTHER ==
--- NOTE | 2023-07-05 14:14 | ED ---
General Adult HPI - General Source: patient Mode of arrival: ambulatory Limitations: no limitations <José Antonio Hoffman - Last Filed: 07/05/23 14:46> <Zackery Vieira - Last Filed: 07/05/23 16:31> - General Chief complaint: Abdominal Pain Stated complaint: Sent by [facility]-ree[facility] Time Seen by Provider: 07/05/23 14:04 - History of Present Illness Initial comments: Dictation was produced using [employer] dictation software. please excuse any grammatical, word or spelling errors. Chief Complaint: 28-year-old female presents to the emergency department from [facility] office for pelvic ultrasound and pain control History of Present Illness: Patient is a 28-year-old female she has past medical history of ovarian cyst. Patient was just seen in the emergency department 2 days ago for the same issue. She was admitted 4 days ago for the same thing. Patient for the last several days has been having left lower quadrant abdominal pain. She had a follow-up appointment with Dr. Morris today for follow-up and outpatient management of ovarian cyst. She was seen and evaluated there told to come to the ER for ultrasound and pain control. Plan is to have another follow- up appointment tomorrow and another ultrasound in the office for comparison films. Patient [place] any fever, chills or night sweats. Denies any vaginal discharge or vaginal bleeding. The ROS documented in this emergency department record has been reviewed and confirmed by me. Those systems with pertinent positive or negative responses have been documented in the HPI. All other systems are other negative and/or noncontributory. (José Antonio Hoffman) - Related Data Home Medications Medication Instructions Recorded Confirmed Albuterol Nebulized [Ventolin 2.5 mg INHALATION RT-QID PRN 05/18/22 06/30/23 Nebulized] Dicyclomine [Bentyl] 10 mg PO QID PRN 05/18/22 06/30/23 Levothyroxine Sodium [Synthroid] 137 mcg PO DAILY 05/18/22 06/30/23 Albuterol Sulfate [Albuterol 1 - 2 puff INHALATION RT-Q4H PRN 06/22/22 06/30/23 Sulfate Hfa] ALPRAZolam [Xanax] 1 mg PO BID PRN 03/10/23 06/30/23 Desvenlafaxine [Pristiq ER] See Taper PO DAILY 03/10/23 06/30/23 Montelukast [Singulair] 10 mg PO DAILY 03/10/23 06/30/23 Cholecalciferol [Vitamin D3 (25 50 mcg PO DAILY 04/25/23 06/30/23 Mcg = 1000 Iu)] ARIPiprazole [Abilify] 4 mg PO DAILY 05/13/23 06/30/23 Omeprazole 40 mg PO HS 05/13/23 06/30/23 HYDROcodone/APAP 10-325MG [[place] 1 tab PO Q8H PRN 06/05/23 06/30/23 10-325] Magnesium Oxide [Mag-Ox] 400 mg PO DAILY 06/05/23 06/30/23 Metoprolol Succinate [Metoprolol 25 mg PO BID 06/05/23 06/30/23 Succinate ER] Rizatriptan Benzoate [Rizatriptan] 10 mg PO DAILY PRN 06/05/23 06/30/23 L.acidoph,Paracasei, B.lactis 1 cap PO DAILY 06/27/23 06/30/23 [Probiotic] buPROPion XL [Wellbutrin XL] 150 mg PO DIRECTED 06/30/23 06/30/23 Allergies Allergy/AdvReac Type Severity Reaction Status Date / Time amoxicillin Allergy Rash/Hives Verified 07/03/23 20:08 nickel Allergy Rash/Hives Verified 07/03/23 20:08 sulfamethoxazole Allergy Rash/Hives Verified 07/03/23 20:08 [From ] trimethoprim [From ] Allergy Rash/Hives Verified 07/03/23 20:08 corn AdvReac Diarrhea Verified 07/03/23 20:08 Review of Systems ROS Other: All systems not noted in ROS Statement are negative. <José Antonio Hoffman - Last Filed: 07/05/23 14:46> ROS Other: All systems not noted in ROS Statement are negative. <Zackery Vieira - Last Filed: 07/05/23 16:31> ROS Statement: Those systems with pertinent positive or pertinent negative responses have been documented in the HPI. 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 staff counsel, History of Any Multi-Drug Resistant Organisms: None Reported Past Surgical History: Appendectomy, Section, Cholecystectomy Additional Past Surgical History / Comment(s): thyroidectomy 09/2017, Laparoscopic exam w/ cautery endometriosis 2012 Past Anesthesia/Blood Transfusion Reactions: No Reported Reaction Past Psychological History: Anxiety, Depression Smoking Status: Never smoker Past Alcohol Use History: Occasional, Rare Past Drug Use History: None Reported - Past Family History Mother Family Medical History: Asthma Father Family Medical History: Coronary Artery Disease (CAD), CVA/TIA, Diabetes Mellitus Brother(s) Family Medical History: Asthma <José Antonio Hoffman - Last Filed: 07/05/23 14:46> General Exam Limitations: no limitations <José Antonio Hoffman - Last Filed: 07/05/23 14:46> - General Exam Comments Initial Comments: PHYSICAL EXAM: General Impression: Alert and oriented x3, not in acute distress HEENT: Normocephalic atraumatic, extra-ocular movements intact, pupils equal and reactive to light bilaterally, mucous membranes moist. Cardiovascular: Heart regular rate and rhythm Chest: Able to complete full sentences, no retractions, no tachypnea Abdomen: abdomen soft, palpatory tenderness to the left lower quadrant, non- distended, no organomegaly Musculoskeletal: Pulses present and equal in all extremities, no peripheral edema Motor: no focal deficits noted Neurological: CN II-XII grossly intact, no focal motor or sensory deficits noted Skin: Intact with no visualized rashes Psych: Normal affect and mood (José Antonio Hoffman) Course Vital Signs 07/05/23 14:00 Temperature 98.3 F Pulse Rate 104 H Respiratory 18 Rate Blood Pressure 126/84 O2 Sat by Pulse 98 Oximetry Medical Decision Making <José Antonio Hoffman - Last Filed: 07/05/23 14:46> <Zackery Vieira - Last Filed: 07/05/23 16:31> - Medical Decision Making Was pt. sent in by a medical professional or institution (, PA, PODIATRIC PHYSICIAN, urgent care, hospital, or fci...) When possible be specific @ -No Did you speak to anyone other than the patient for history (EMS, parent, family, police, friend...)? What history was obtained from this source @ -No Did you review nursing and triage notes (agree or disagree)? Why? @ -I reviewed and agree with nursing and triage notes Were old charts reviewed (outside hosp., previous admission, EMS record, old EKG, old radiological studies, urgent care reports/EKG's, fci records)? Report findings @ -Previous discharge summary was reviewed showing that patient was admitted to the hospital for pain control for ovarian cyst pain Differential Diagnosis (chest pain, altered mental status, abdominal pain women, abdominal pain men, vaginal bleeding, musculoskeletal, weakness, fever, dyspnea, syncope, headache, dizziness, GI bleed, back pain, seizure, CVA, palpatations, mental health)? @ -Not applicable EKG interpreted by me (3pts min.). @ -None done X-rays interpreted by me (1pt min.). @ -None done CT interpreted by me (1pt min.). @ -None done U/S interpreted by me (1pt. min.). @ -Pending What testing was considered but not performed or refused? (CT, X-rays, U/S, labs)? Why? @ -None What meds were considered but not given or refused? Why? @ -None Did you discuss the management of the patient with other professionals (professionals i.e. , PA, PODIATRIC PHYSICIAN, lab, RT, psych nurse, psych social worker, heddler tier, teacher, hospital chief financial officer, director of casework department)? Give summary @ -No Was smoking cessation discussed for >3mins.? @ -No Was critical care preformed (if so, how long)? @ -No Were there social determinants of health that impacted care today? How? (Homelessness, low income, unemployed, alcoholism, drug addiction, transportation, low edu. Level, literacy, decrease access to med. care, [facility], rehab)? @ -No Was there de-escalation of care discussed even if they declined (Discuss DNR or withdrawal of care, Hospice)? DNR status @ -No What co-morbidities impacted this encounter? (DM, HTN, Smoking, COPD, CAD, Cancer, CVA, ARF, Chemo, Hep., AIDS, mental health diagnosis, sleep apnea, morbid obesity)? @ -None Was patient admitted / discharged? Hospital course, mention meds given and route, prescriptions, significant lab abnormalities, going to OR and other pertinent info. @ -28-year-old female presents with left lower quadrant pain. Patient's been dealing with this symptom for the last 5 days. She was admitted to the hospital for control. She has follow-up with [facility] still to come back to the emergency department for ultrasound. Patient given analgesics. Ultrasound ordered. Patient care signed out to Dr. Vieira at 3:00 PM Undiagnosed new problem with uncertain prognosis? @ -No Drug Therapy requiring intensive monitoring for toxicity (Heparin, Nitro, Insulin, Cardizem)? @ -No Were any procedures done? @ -No Diagnosis/symptom? Acute, or Chronic, or Acute on Chronic? Uncomplicated (without systemic symptoms) or Complicated (systemic symptoms)? @ -Pelvic pain Side effects of treatment? @ -No Exacerbation, Progression, or Severe Exacerbation? @ -No Poses a threat to life or bodily function? How? (Chest pain, [place], [place], pneumonia, PE, COPD, DKA, ARF, appy, cholecystitis, CVA, Diverticulitis, Homicidal, Suicidal, threat to staff... and all critical care pts) @ -yes (José Antonio Hoffman) I did reevaluate this patient after signout, continues to have left sided lower abdominal pain. She had been given Dilaudid prior to my evaluation and was given Toradol after this. She did come from her [facility] office Dr. Morris, I was able to discuss the case with Dr. Morris, including the ultrasound results. Patient had negative test 2 days prior. I do feel that the best course of treatment is Tylenol and Motrin. Patient should continue to follow with her [facility] and primary care provider. (Zackery Vieira) Disposition <José Antonio Hoffman - Last Filed: 07/05/23 14:46> Is patient prescribed a controlled substance at d/c from ED?: No Time of Disposition: 16:31 <Zackery Vieira - Last Filed: 07/05/23 16:31> Clinical Impression: Ovarian cyst, Abdominal pain Disposition: HOME SELF-CARE Condition: Fair Instructions (If sedation given, give patient instructions): Abdominal Pain (ED), Ovarian Cyst (ED) Referrals: Tiffanie Graham MD [Primary Care Provider] - 1-2 days Nohemi Morris DO [Doctor of Osteopathic Medicine] - 1-2 days
[2023-07-05 14:29] VITALS: RESP 18
[2023-07-05] MEDS: HYDROmorphone 1 MG/ML 1 ML SYRINGE IVP STA (14:42)
[2023-07-05] MEDS: ONDANSETRON 4 MG/2 ML VIAL IVP STA (14:43)
--- NOTE | 2023-07-05 15:39 | US ---
EXAMINATION TYPE: US transvaginal DATE OF EXAM: 07/05/2023 COMPARISON: Ultrasounds most recent prior 624 CLINICAL INDICATION: Female, 28 years old with history of LLQ pain; ongoing llq pain for 5 days, , TECHNIQUE: TV. Transvaginal sonographic images Date of LMP: 06/13/2023 EXAM MEASUREMENTS: Uterus: 8.8 x 3.1 x 3.1 cm Endometrial Stripe: 0.9 cm Right Ovary: 3.0 x 2.3 x 2.2 cm Left Ovary: 3.5 x 2.5 x 2.2 cm patient tried to void prior to exam but still had distended bladder 1. Uterus: Anteverted wnl 2. Endometrium: wnl 3. Right Ovary: follicles seen 4. Left Ovary: 2.3 x 1.5 x 1.8 cm hyperechoic lesion that appears larger then past 2 previous exams, no second lesion noted on today's exam. Spectral, color and waveform doppler imaging shows good arterial and venous flow within the ovaries ; there is no evidence for ovarian torsion. 5. Bilateral Adnexa: wnl 6. Posterior cul-de-sac: scant amount of free fluid IMPRESSION: 1. No evidence for acute abdominal process. 2. Appropriate arterial and venous spectral waveforms to the ovaries. 3. Possible left ovarian lesion which is reported larger from 2 days ago possibly representing hemor rhagic cyst. Continued surveillance in 6-8 weeks recommended.
[2023-07-05] MEDS: KETOROLAC 15 MG/ML 1 ML VIAL IM STA (15:45)
[2023-07-05] MEDS: MORPHINE SULFATE 4 MG/ML SYRINGE IVP STA (16:50)
[2023-07-05 17:23] VITALS: BP 138/90; PULSE 93; TEMP 98.2
== END 2023-07-05 17:08 | disposition home or self-care (01) ==
LOC: EC 13:57
DX: N83.202 Unspecified ovarian cyst, left side (principal); Z90.49 Acquired absence of other specified parts of digestive tract; Z88.2 Allergy status to sulfonamides; Z88.1 Allergy status to other antibiotic agents; Z91.018 Allergy to other foods
CPT/HCPCS: 93975; 76830; 99284; 96374; 96375 ×2; 96372; J2270; J2405; J1170; J1885

== ENCOUNTER → 2023-07-08 | Outpatient (CLI) | payer MEDICAID, OTHER | END | disposition home or self-care (01) | LOC: LABWHC1 10:37 | PROVIDERS: ATTEND Physician Assistant | DX: O20.0 Threatened abortion (principal); Z3A.00 Weeks of gestation of pregnancy not specified | CPT/HCPCS: 36415; 84702 ==

== ENCOUNTER → 2023-07-09 | Outpatient (CLI) | payer MEDICAID, OTHER | END | disposition home or self-care (01) | LOC: LABWHC1 07:58 | PROVIDERS: ATTEND Physician Assistant | DX: Z34.90 Encounter for supervision of normal pregnancy, unspecified, unspecified trimester (principal) | CPT/HCPCS: 36415; 84702 ==

== ENCOUNTER → 2023-07-13 | Outpatient (CLI) | payer MEDICAID, OTHER | END | disposition home or self-care (01) | LOC: LABWHC1 17:00 | PROVIDERS: ATTEND Physician Assistant | DX: Z34.90 Encounter for supervision of normal pregnancy, unspecified, unspecified trimester (principal) | CPT/HCPCS: 36415; 84702 ==

== ENCOUNTER 2023-07-14 14:16 | Emergency (ER) | payer MEDICAID, OTHER ==
[2023-07-14 14:23] VITALS: BP 150/111; PULSE 101; RESP 18; TEMP 98.9
--- NOTE | 2023-07-14 14:58 | ED ---
Abdominal Pain HPI - General Chief Complaint: Abdominal Pain Stated Complaint: abd pain Time Seen by Provider: 07/14/23 14:55 Source: patient, RN notes reviewed, old records reviewed Mode of arrival: ambulatory Limitations: no limitations - History of Present Illness Initial Comments: 28-year-old female presented to the ER with chief complaint of left lower quadrant abdominal pain. Patient reports she is approximately 5 weeks and follows up with Dr. Morris. She has been experiencing this pain for the past couple of weeks. She has been having outpatient serial serum hCGs last drawn yesterday. She states she got a phone call from Dr. Clement, QA REVIEWER, who told her to report to the ER to rule out ectopic as hCGs have not been inc reasing appropriately. Patient denies any vaginal bleeding or discharge. She does report left lower quadrant cramping. She denies any fevers, chills, cough, congestion, shortness of breath, chest pain, constipation/diarrhea or urinary complaints. - Related Data Home Medications Medication Instructions Recorded Confirmed Albuterol Nebulized [Ventolin 2.5 mg INHALATION RT-QID PRN 05/18/22 06/30/23 Nebulized] Dicyclomine [Bentyl] 10 mg PO QID PRN 05/18/22 06/30/23 Levothyroxine Sodium [Synthroid] 137 mcg PO DAILY 05/18/22 06/30/23 Albuterol Sulfate [Albuterol 1 - 2 puff INHALATION RT-Q4H PRN 06/22/22 06/30/23 Sulfate Hfa] ALPRAZolam [Xanax] 1 mg PO BID PRN 03/10/23 06/30/23 Desvenlafaxine [Pristiq ER] See Taper PO DAILY 03/10/23 06/30/23 Montelukast [Singulair] 10 mg PO DAILY 03/10/23 06/30/23 Cholecalciferol [Vitamin D3 (25 50 mcg PO DAILY 04/25/23 06/30/23 Mcg = 1000 Iu)] ARIPiprazole [Abilify] 4 mg PO DAILY 05/13/23 06/30/23 Omeprazole 40 mg PO HS 05/13/23 06/30/23 HYDROcodone/APAP 10-325MG [[place] 1 tab PO Q8H PRN 06/05/23 06/30/23 10-325] Magnesium Oxide [Mag-Ox] 400 mg PO DAILY 06/05/23 06/30/23 Metoprolol Succinate [Metoprolol 25 mg PO BID 06/05/23 06/30/23 Succinate ER] Rizatriptan Benzoate [Rizatriptan] 10 mg PO DAILY PRN 06/05/23 06/30/23 L.acidoph,Paracasei, B.lactis 1 cap PO DAILY 06/27/23 06/30/23 [Probiotic] buPROPion XL [Wellbutrin XL] 150 mg PO DIRECTED 06/30/23 06/30/23 Previous Rx's Medication Instructions Recorded Ondansetron Odt [Zofran Odt] 4 mg PO Q8HR PRN #15 tab 07/14/23 Allergies Allergy/AdvReac Type Severity Reaction Status Date / Time amoxicillin Allergy Rash/Hives Verified 07/14/23 14:21 nickel Allergy Rash/Hives Verified 07/14/23 14:21 sulfamethoxazole Allergy Rash/Hives Verified 07/14/23 14:21 [From ] trimethoprim [From ] Allergy Rash/Hives Verified 07/14/23 14:21 corn AdvReac Diarrhea Verified 07/14/23 14:21 Review of Systems ROS Statement: Those systems with pertinent positive or pertinent negative responses have been documented in the HPI. ROS Other: All systems not noted in ROS Statement are negative. 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 strand and binder controller, History of Any Multi-Drug Resistant Organisms: None Reported Past Surgical History: Appendectomy, Section, Cholecystectomy Additional Past Surgical History / Comment(s): thyroidectomy 09/2017, Lapar oscopic exam w/ cautery endometriosis 2012 Past Anesthesia/Blood Transfusion Reactions: No Reported Reaction Past Psychological History: Anxiety, Depression Smoking Status: Never smoker Past Alcohol Use History: Occasional, Rare Past Drug Use History: None Reported - Past Family History Mother Family Medical History: Asthma Father Family Medical History: Coronary Artery Disease (CAD), CVA/TIA, Diabetes Mellitus Brother(s) Family Medical History: Asthma General Exam Limitations: no limitations General appearance: alert, in no apparent distress Respiratory exam: Present: normal lung sounds bilaterally. Absent: respiratory distress, wheezes, rales, rhonchi, stridor Cardiovascular Exam: Present: regular rate, normal rhythm, normal heart sounds. Absent: systolic murmur, diastolic murmur, rubs, gallop, clicks GI/Abdominal exam: Present: soft, tenderness (Left lower quadrant), normal bowel sounds Neurological exam: Present: alert, oriented X3, CN II-XII intact Skin exam: Present: warm, dry, intact, normal color. Absent: rash Course Vital Signs 07/14/23 14:17 Temperature 98.9 F Pulse Rate 101 H Respiratory 18 Rate Blood Pressure 150/111 O2 Sat by Pulse 100 Oximetry Medical Decision Making - Medical Decision Making Was pt. sent in by a medical professional or institution (, PA, DEBONE SUPERVISOR, urgent care, hospital, or assisted...) When possible be specific @ -No Did you speak to anyone other than the patient for history (EMS, parent, family, police, friend...)? What history was obtained from this source @ -No Did you review nursing and triage notes (agree or disagree)? Why? @ -I reviewed and agree with nursing and triage notes Were old charts reviewed (outside hosp., previous admission, EMS record, old EKG, old radiological studies, urgent care reports/EKG's, assisted records)? Report findings @ -Yes, I reviewed laboratory studies from 24 hCG less than 2.4, 07-09-2023 urine hCG 10.7, 07-13-2023 serum hCG 94.5. Differential Diagnosis (chest pain, altered mental status, abdominal pain women, abdominal pain men, vaginal bleeding, weakness, fever, dyspnea, syncope, headache, dizziness, GI bleed, back pain, seizure, CVA, palpatations, mental health, musculoskeletal)? @ -Differential Abdominal Pain Women: Appendicitis, Cholecystitis, diverticulosis, ischemic bowel, pancreatitis, hepatitis, UTI, gastroenteritis, AAA, incarcerated hernia, bowel obstruction, constipation, inflammatory bowel, hepatitis, peptic ulcer disease, splenic infarction, perforated viscus, vulvitis, ovarian torsion, PID, kidney stone, placenta abruption, this is not meant to be an all-inclusive list EKG interpreted by me (3pts min.). @ -[None X-rays interpreted by me (1pt min.). @ -None done CT interpreted by me (1pt min.). @ -None done U/S interpreted by me (1pt. min.). @ -[ ultrasound Unable to identify an IUP. Could represent early , open missed spontaneous as well as ectopic . What testing was considered but not performed or refused? (CT, X-rays, U/S, labs)? Why? @ -None What meds were considered but not given or refused? Why? @ -None Did you discuss the management of the patient with other professionals (professionals i.e. , PA, DEBONE SUPERVISOR, lab, RT, psych nurse, public health social worker, raw scales operator, teacher, air crew officer, manager of case)? Give summary @ -No Was smoking cessation discussed for >3mins.? @ -No Was critical care preformed (if so, how long)? @ -No Were there social determinants of health that impacted care today? How? (Homelessness, low income, unemployed, alcoholism, drug addiction, transportation, low edu. Level, literacy, decrease access to med. care, assisted, rehab)? @ -No Was there de-escalation of care discussed even if they declined (Discuss DNR or withdrawal of care, Hospice)? DNR status @ -No What co-morbidities impacted this encounter? (DM, HTN, Smoking, COPD, CAD, Cancer, CVA, ARF, Chemo, Hep., AIDS, mental health diagnosis, sleep apnea, morbid obesity)? @ -None Was patient admitted / discharged? Hospital course, mention meds given and route, prescriptions, significant lab abnormalities, going to OR and other pertinent info. @ -Discharge. 28-year-old female presented to the ER with a chief complaint of left lower quadrant abdominal pain. History physical exam completed. Vitals stable. Patient no signs of acute distress and nontoxic-appearing. Normal bowel sounds with tenderness to the left lower quadrant. Laboratory studies obtained unimpressive. Serum hCG 127.5. Urine without signs of infection. Patient received by mouth Tylenol and IV Zofran for symptom control in the ER. ultrasound unable to identify a IUP with certainty. Follow-up beta hCGs and ultrasounds are recommended. Results discussed with patient, all questions answered. Advise close follow-up with QA REVIEWER. Zofran prescribed. Patient rep orts she is following up with Dr. Morris. Patient blood type is O- and is not complaining of vaginal bleeding or discharge. Rhogam not given. Strict return parameters discussed. Patient discharged in stable condition with follow-up to QA REVIEWER. Patient verbally expressed understanding and agreement with care plan. Case discussed with ED attending, Dr. Peterson. Undiagnosed new problem with uncertain prognosis? @ -No Drug Therapy requiring intensive monitoring for toxicity (Heparin, Nitro, Ins ulin, Cardizem)? @ -No Were any procedures done? @ -No Diagnosis/symptom? @ -Abdominal pain in Acute, or Chronic, or Acute on Chronic? @ -Acute Uncomplicated (without systemic symptoms) or Complicated (systemic symptoms)? @ -Uncomplicated Side effects of treatment? @ -No Exacerbation, Progression, or Severe Exacerbation? @ -No Poses a threat to life or bodily function? How? (Chest pain, [place], [place], pneumonia, PE, COPD, DKA, ARF, appy, cholecystitis, CVA, Diverticulitis, Homicidal, Suicidal, threat to staff... and all critical care pts) @ -No - Lab Data Result diagrams: 07/14/23 15:12 07/14/23 17:08 Lab Results 07/14/23 07/14/23 07/14/23 Range/Units 15:12 15:12 15:12 WBC 10.6 (3.8-10.6) k/uL RBC 4.28 (3.80-5.40) m/uL Hgb 14.3 (11.4-16.0) gm/dL Hct 41.2 (34.0-46.0) % MCV 96.4 (80.0-100.0) fL MCH 33.4 (25.0-35.0) pg MCHC 34.7 (31.0-37.0) g/dL RDW 12.7 (11.5-15.5) % Plt Count 315 (150-450) k/uL MPV 7.6 Neutrophils % 66 % Lymphocytes % 26 % Monocytes % 4 % Eosinophils % 2 % Basophils % 1 % Neutrophils # 7.0 (1.3-7.7) k/uL Lymphocytes # 2.7 (1.0-4.8) k/uL Monocytes # 0.4 (0-1.0) k/uL Eosinophils # 0.2 (0-0.7) k/uL Basophils # 0.1 (0-0.2) k/uL Sodium (137-145) mmol/L Potassium (3.5-5.1) mmol/L Chloride (98-107) mmol/L Carbon Dioxide (22-30) mmol/L Anion Gap mmol/L BUN (7-17) mg/dL Creatinine (0.52-1.04) mg/dL Est GFR (CKD-EPI)AfAm (>60 ml/min/1.73 sqM) Est GFR (CKD-EPI)NonAf (>60 ml/min/1.73 sqM) Glucose (74-99) mg/dL Calcium (8.4-10.2) mg/dL Total Bilirubin (0.2-1.3) mg/dL AST (14-36) U/L ALT (4-34) U/L Alkaline Phosphatase (38-126) U/L Total Protein (6.3-8.2) g/dL Albumin (3.5-5.0) g/dL HCG, Quant 127.5 mIU/mL Urine Color Light Yellow Urine Appearance Clear (Clear) Urine pH 6.0 (5.0-8.0) Ur Specific [place] 1.028 (1.001-1.035) Urine Protein Negative (Negative) Urine Glucose (UA) Negative (Negative) Urine Ketones Negative (Negative) Urine Blood Negative (Negative) Urine Nitrite Negative (Negative) Urine Bilirubin Negative (Negative) Urine Urobilinogen <2.0 (<2.0) mg/dL Ur Leukocyte Esterase Negative (Negative) 07/14/23 Range/Units 17:08 WBC (3.8-10.6) k/uL RBC (3.80-5.40) m/uL Hgb (11.4-16.0) gm/dL Hct (34.0-46.0) % MCV (80.0-100.0) fL MCH (25.0-35.0) pg MCHC (31.0-37.0) g/dL RDW (11.5-15.5) % Plt Count (150-450) k/uL MPV Neutrophils % % Lymphocytes % % Monocytes % % Eosinophils % % Basophils % % Neutrophils # (1.3-7.7) k/uL Lymphocytes # (1.0-4.8) k/uL Monocytes # (0-1.0) k/uL Eosinophils # (0-0.7) k/uL Basophils # (0-0.2) k/uL Sodium 139 (137-145) mmol/L Potassium 4.0 (3.5-5.1) mmol/L Chloride 111 H (98-107) mmol/L Carbon Dioxide 21 L (22-30) mmol/L Anion Gap 7 mmol/L BUN 18 H (7-17) mg/dL Creatinine 0.68 (0.52-1.04) mg/dL Est GFR (CKD-EPI)AfAm >90 (>60 ml/min/1.73 sqM) Est GFR (CKD-EPI)NonAf >90 (>60 ml/min/1.73 sqM) Glucose 76 (74-99) mg/dL Calcium 9.0 (8.4-10.2) mg/dL Total Bilirubin 0.3 (0.2-1.3) mg/dL AST 29 (14-36) U/L ALT 43 H (4-34) U/L Alkaline Phosphatase 90 (38-126) U/L Total Protein 7.3 (6.3-8.2) g/dL Albumin 4.2 (3.5-5.0) g/dL HCG, Quant mIU/mL Urine Color Urine Appearance (Clear) Urine pH (5.0-8.0) Ur Specific [place] (1.001-1.035) Urine Protein (Negative) Urine Glucose (UA) (Negative) Urine Ketones (Negative) Urine Blood (Negative) Urine Nitrite (Negative) Urine Bilirubin (Negative) Urine Urobilinogen (<2.0) mg/dL Ur Leukocyte Esterase (Negative) Disposition Clinical Impression: , Abdominal pain in Disposition: HOME SELF-CARE Condition: Stable Instructions (If sedation given, give patient instructions): Abdominal Pain in (ED) Additional Instructions: Please follow-up with QA REVIEWER. Return to the ER for any new or worsening symptoms. Prescriptions: Ondansetron Odt [Zofran Odt] 4 mg PO Q8HR PRN #15 tab PRN Reason: Nausea Is patient prescribed a controlled substance at d/c from ED?: No Referrals: Tiffanie Nicole, NPC [Primary Care Provider] - 1-2 days Nohemi Morris DO [Doctor of Osteopathic Medicine] - 1-2 days Time of Disposition: 17:49
[2023-07-14] MEDS: ACETAMINOPHEN TAB 325 MG TAB PO STA (15:15)
[2023-07-14 15:35] LABS: Appearance,Urine Clear (Clear); Bilirubin,Urine Negative (Negative); Blood,Urine Negative (Negative); Color,Urine Light Yellow; Glucose,Urine (UA) Negative (Negative); Ketones,Urine Negative (Negative); Leukocyte Esterase,Urine Negative (Negative); Nitrite,Urine Negative (Negative); Protein,Urine Negative (Negative); Specific Gravity,Urine 1.028 (1.001-1.035); Urobilinogen,Urine <2.0 mg/dL (<2.0)
[2023-07-14] MEDS: ONDANSETRON 4 MG/2 ML VIAL IVP STA (15:50)
[2023-07-14 15:54] LABS: Basophils # (A) 0.1 k/uL (0-0.2); Basophils % (A) 1 %; Eosinophils # (A) 0.2 k/uL (0-0.7); Eosinophils % (A) 2 %; HCT 41.2 % (34.0-46.0); HGB 14.3 gm/dL (11.4-16.0); Lymphocytes # (A) 2.7 k/uL (1.0-4.8); Lymphocytes % (A) 26 %; MCH 33.4 pg (25.0-35.0); MCHC 34.7 g/dL (31.0-37.0); MCV 96.4 fL (80.0-100.0); Mean Platelet Volume 7.6; Monocytes # (A) 0.4 k/uL (0-1.0); Monocytes % (A) 4 %; Neutrophils % (A) 66 %; Platelet Count 315 k/uL (150-450); RBC 4.28 m/uL (3.80-5.40); RDW 12.7 % (11.5-15.5); WBC 10.6 k/uL (3.8-10.6)
--- NOTE | 2023-07-14 16:04 | US ---
EXAMINATION TYPE: Transabdominal DATE OF EXAM: 07/14/2023 3:45 PM COMPARISON: NONE CLINICAL INDICATION: Female, 28 years old with history of 5 wk preg- LLQ ab pain; continuing LLQ pain , positive beta 07/09/23, , EXAM PERFORMED: OBTA/OBTV EXAM MEASUREMENTS: GESTATIONAL AGE / DATING Physician Established: Not yet established Dates by LMP: (4 weeks/3 days) EDC: 03/19/2024 Dates by First Scan: No previous OB scan, this is first scan Dates by Current Scan for: No IUP seen at this time MATERNAL ANATOMY Uterus: 8.5 x 4.4 x 3.6cm Right Ovary: 2.5 x 2.0 x 2.0cm Left Ovary: 2.9 x 3.1 x 2.5cm Post CDS / Adnexa: wnl Presence of free fluid: mild within CDS Presence of corpus luteal cyst: possible on the left = 1.8 x 1.7 x 1.6cm Presence of subchorionic bleed: no GESTATION / SURVEY Date of LMP: 06/13/2023 Beta HcG (if available): 94 yesterday, pending today's IMPRESSION: 1. Intrauterine not identified with certainty. 3 possibilities exist which normal early IUP , missed spontaneous as well as ectopic . Strict clinical correlation advised. Ankit elation with serial beta hCG and/or ultrasound recommended.
[2023-07-14 16:36] LABS: HCG,Quantitative Serum 127.5 mIU/mL
[2023-07-14 17:46] LABS: ALT 43 U/L (4-34); AST 29 U/L (14-36); African American GFR (CKD) >90 (>60 ml/min/1.73 sqM); Albumin 4.2 g/dL (3.5-5.0); Alkaline Phosphatase 90 U/L (38-126); Anion Gap 7 mmol/L; Blood Urea Nitrogen 18 mg/dL (7-17); Carbon Dioxide 21 mmol/L (22-30); Chloride 111 mmol/L (98-107); Glucose 76 mg/dL (74-99); Non-African American GFR(CKD) >90 (>60 ml/min/1.73 sqM); Sodium 139 mmol/L (137-145); Total Bilirubin 0.3 mg/dL (0.2-1.3); Total Protein 7.3 g/dL (6.3-8.2)
== END 2023-07-14 18:04 | disposition home or self-care (01) ==
LOC: EC 14:16
DX: O26.891 Other specified pregnancy related conditions, first trimester (principal); R10.32 Left lower quadrant pain; Z88.1 Allergy status to other antibiotic agents; Z88.2 Allergy status to sulfonamides; Z91.018 Allergy to other foods; Z90.49 Acquired absence of other specified parts of digestive tract; Z3A.01 Less than 8 weeks gestation of pregnancy
CPT/HCPCS: 36415; 80053; 85025; 81003; 84702; 76801; 76817; 99285; 96374; J2405

== ENCOUNTER 2023-08-03 11:45 | Emergency (ER) | payer MEDICAID, OTHER ==
[2023-08-03 11:51] VITALS: TEMP 98.3
[2023-08-03] MEDS: LORazepam 2 MG/ML INJ IV STA ×2 (13:19→15:18)
[2023-08-03] MEDS: SODIUM CHLORIDE 0.9% 1,000 ML IV STA (13:20)
[2023-08-03] MEDS: ASPIRIN 81 MG PO STA (13:21)
[2023-08-03] MEDS: ONDANSETRON 4 MG/2 ML VIAL IVP STA (13:21)
--- NOTE | 2023-08-03 13:29 | XR ---
EXAMINATION TYPE: XR chest 2V DATE OF EXAM: 08/03/2023 1:24 PM CLINICAL INDICATION:Female, 28 years old with history of Chest Pain; [facility] COMPARISON: Chest radiographs from 05/13/2023 TECHNIQUE: XR chest 2V Frontal and lateral views of the chest. FINDINGS: Lungs/Pleura: There is no evidence of pleural effusion, focal consolidation, or pneumothorax. Pulmonary vascularity: Unremarkable. Heart/mediastinum: Cardiomediastinal silhouette is unremarkable. Musculoskeletal: No acute osseous pathology. IMPRESSION: No acute cardiopulmonary disease/process.
[2023-08-03 13:30] LABS: Basophils % (A) 1 %; Eosinophils # (A) 0.2 k/uL (0-0.7); Eosinophils % (A) 2 %; HCT 40.4 % (34.0-46.0); HGB 13.5 gm/dL (11.4-16.0); Lymphocytes # (A) 2.7 k/uL (1.0-4.8); Lymphocytes % (A) 29 %; MCH 32.3 pg (25.0-35.0); MCHC 33.3 g/dL (31.0-37.0); MCV 96.7 fL (80.0-100.0); Mean Platelet Volume 7.3; Monocytes # (A) 0.4 k/uL (0-1.0); Monocytes % (A) 4 %; Neutrophils # (A) 5.8 k/uL (1.3-7.7); Neutrophils % (A) 62 %; Platelet Count 266 k/uL (150-450); RBC 4.18 m/uL (3.80-5.40); RDW 12.3 % (11.5-15.5); WBC 9.3 k/uL (3.8-10.6)
[2023-08-03 13:43] LABS: INR 0.9 (<1.2)
[2023-08-03 13:44] LABS: Partial Thromboplastin Time 24.7 sec (22.0-30.0); Prothrombin Time 10.4 sec (10.0-12.5)
[2023-08-03 13:50] LABS: ALT 36 U/L (4-34); African American GFR (CKD) >90 (>60 ml/min/1.73 sqM); Albumin 4.8 g/dL (3.5-5.0); Anion Gap 12 mmol/L; Blood Urea Nitrogen 10 mg/dL (7-17); Calcium 9.4 mg/dL (8.4-10.2); Carbon Dioxide 19 mmol/L (22-30); Chloride 105 mmol/L (98-107); Glucose 81 mg/dL (74-99); Lipase 45 U/L (23-300); Non-African American GFR(CKD) >90 (>60 ml/min/1.73 sqM); Sodium 136 mmol/L (137-145); Total Bilirubin 0.7 mg/dL (0.2-1.3); Total Protein 7.8 g/dL (6.3-8.2)
[2023-08-03 13:59] LABS: NT-Pro-B-Type Natriuretic Pept 24 pg/mL
[2023-08-03 14:02] LABS: AST 33 U/L (14-36); Alkaline Phosphatase 62 U/L (38-126); Magnesium 1.9 mg/dL (1.6-2.3); Potassium 4.2 mmol/L (3.5-5.1)
--- NOTE | 2023-08-03 14:29 | ED ---
General Adult HPI - General Source: patient, RN notes reviewed, old records reviewed Mode of arrival: ambulatory Limitations: no limitations <Jr Peterson - Last Filed: 08/05/23 17:01> <Long Forte - Last Filed: 08/06/23 12:34> - General Chief complaint: Chest Pain Stated complaint: Chest pain, Heart palpitations Time Seen by Provider: 08/03/23 12:50 - History of Present Illness Initial comments: Patient is a 28-year-old female presents emergency department complaining of chest pain. States she feels like she can feel her heart skipping beats. Was supposed to get a stress echo recently but pushed it back. States her chest pain is more or less constant. No acute changes. Occurs on a daily basis. Was somewhat worse over the last few days. Presents for further evaluation at this time. Has a history of mitral valve prolapse.As the pain is a pressure-like sensation. No radiation. (Jr Peterson) - Related Data Home Medications Medication Instructions Recorded Confirmed Albuterol Nebulized [Ventolin 2.5 mg INHALATION RT-QID PRN 05/18/22 08/03/23 Nebulized] Dicyclomine [Bentyl] 10 mg PO QID PRN 05/18/22 08/03/23 Levothyroxine Sodium [Synthroid] 137 mcg PO DAILY 05/18/22 08/03/23 Albuterol Sulfate [Albuterol 1 - 2 puff INHALATION RT-Q4H PRN 06/22/22 08/03/23 Sulfate Hfa] ALPRAZolam [Xanax] 1 mg PO BID PRN 03/10/23 08/03/23 Montelukast [Singulair] 10 mg PO DAILY 03/10/23 08/03/23 Cholecalciferol [Vitamin D3 (25 50 mcg PO DAILY 04/25/23 08/03/23 Mcg = 1000 Iu)] ARIPiprazole [Abilify] 4 mg PO DAILY 05/13/23 08/03/23 Omeprazole 40 mg PO HS 05/13/23 08/03/23 HYDROcodone/APAP 10-325MG [Devens 1 tab PO Q8H PRN 06/05/23 08/03/23 10-325] Magnesium Oxide [Mag-Ox] 400 mg PO DAILY 06/05/23 08/03/23 Metoprolol Succinate [Metoprolol 25 mg PO BID 06/05/23 08/03/23 Succinate ER] L.acidoph,Paracasei, B.lactis 1 cap PO DAILY 06/27/23 08/03/23 [Probiotic] buPROPion XL [Wellbutrin XL] 150 mg PO DAILY 06/30/23 08/03/23 Lumateperone Tosylate [Caplyta] 21 mg PO DAILY 08/03/23 08/03/23 Rizatriptan Benzoate [Rizatriptan] 5 mg PO DAILY PRN 08/03/23 08/03/23 Previous Rx's Medication Instructions Recorded Ondansetron Odt [Zofran Odt] 4 mg PO Q8HR PRN #15 tab 07/14/23 Montelukast [Singulair] 10 mg PO DAILY #20 tab 08/03/23 Omeprazole [PriLOSEC] 20 mg PO AC-BID #40 cap 08/03/23 Allergies Allergy/AdvReac Type Severity Reaction Status Date / Time amoxicillin Allergy Rash/Hives Verified 08/03/23 14:29 nickel Allergy Rash/Hives Verified 08/03/23 14:29 sulfamethoxazole Allergy Rash/Hives Verified 08/03/23 14:29 [From Octra] trimethoprim [From Octra] Allergy Rash/Hives Verified 08/03/23 14:29 corn AdvReac Diarrhea Verified 08/03/23 14:29 Review of Systems ROS Other: All systems not noted in ROS Statement are negative. <Jr Peterson - Last Filed: 08/05/23 17:01> ROS Other: All systems not noted in ROS Statement are negative. <Long Forte - Last Filed: 08/06/23 12:34> ROS Statement: Those systems with pertinent positive or pertinent negative responses have been documented in the HPI. Review of Systems: CONST: Denies fever EYES: Denies blurry vision ENT: Denies nasal congestion C/V: Endorses chest pain RESP: Denies shortness of breath GI: Denies abdominal pain : Denies dysuria SKIN: Denies rash. MSK: Denies joint pain. 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 patient financial advocate, History of Any Multi-Drug Resistant Organisms: None Reported Past Surgical History: Appendectomy, Section, Cholecystectomy Additional Past Surgical History / Comment(s): thyroidectomy 09/2017, Laparoscopic exam w/ cautery endometriosis 2012 Past Anesthesia/Blood Transfusion Reactions: No Reported Reaction Past Psychological History: Anxiety, Depression Smoking Status: Never smoker Past Alcohol Use History: Occasional, Rare Past Drug Use History: None Reported - Past Family History Mother Family Medical History: Asthma Father Family Medical History: Coronary Artery Disease (CAD), CVA/TIA, Diabetes Mellitus Brother(s) Family Medical History: Asthma <Jr Peterson - Last Filed: 08/05/23 17:01> General Exam Limitations: no limitations <Jr Peterson - Last Filed: 08/05/23 17:01> - General Exam Comments Initial Comments: General: Appears in no acute distress. HEAD: Normal with no signs of head trauma. EYES: PERRLA, EOMI, conjunctiva normal, no discharge. ENT: Hearing grossly intact, normal oropharynx. RESPIRATORY: Clear breath sounds bilaterally. No wheezes, rales, or rhonchi. C/V: Regular rate and rhythm. S1 and S2 auscultated, no edema, peripheral pulses 2+ and intact throughout ABD: Abd is soft, nontender, nondistended EXT: no obvious deformity SKIN: No rashes or lesions observed on exposed skin. NEURO: Alert and oriented x 4. (Jr Peterson) Course Vital Signs 08/03/23 08/03/23 08/03/23 11:46 12:01 17:54 Temperature 98.3 F Pulse Rate 86 98 Pulse Rate [ 72 Radial] Respiratory 16 18 Rate Blood Pressure 116/83 114/72 O2 Sat by Pulse 100 96 Oximetry Medical Decision Making - Lab Data Result diagrams: 08/03/23 13:13 08/03/23 13:13 - EKG Data -: EKG Interpreted by Me <Jr Peterson - Last Filed: 08/05/23 17:01> - Lab Data Result diagrams: 08/03/23 13:13 08/03/23 13:13 <Long Forte - Last Filed: 08/06/23 12:34> - Medical Decision Making Was pt. sent in by a medical professional or institution (KESHA Heredia, CHERRY PICKER OPERATOR, urgent care, hospital, or retirement...) When possible be specific @ -No Did you speak to anyone other than the patient for history (EMS, parent, family, police, friend...)? What history was obtained from this source @ -No Did you review nursing and triage notes (agree or disagree)? Why? @ -I reviewed and agree with nursing and triage notes Were old charts reviewed (outside hosp., previous admission, EMS record, old EKG, old radiological studies, urgent care reports/EKG's, retirement records)? Report findings @ -Compared current EKG with old EKG from June 2023 which shows no obvious acute changes. Differential Diagnosis (chest pain, altered mental status, abdominal pain women, abdominal pain men, vaginal bleeding, weakness, fever, dyspnea, syncope, headache, dizziness, GI bleed, back pain, seizure, CVA, palpatations, mental health, musculoskeletal)? @ -Differential Chest Pain: Stable Angina, Unstable Angina, STEMI, NSTEMI Aortic Dissection, Pneumothorax, Musculoskeletal, Esophageal Spasm GERD, Cholecystitis, Pancreatitis, Zoster, this is not meant to be an all-inclusive list. EKG interpreted by me (3pts min.). @ -As above X-rays interpreted by me (1pt min.). @ -X-ray shows no obvious acute cardiopulmonary process. CT interpreted by me (1pt min.). @ -None done U/S interpreted by me (1pt. min.). @ -None done What testing was considered but not performed or refused? (CT, X-rays, U/S, labs)? Why? @ -None What meds were considered but not given or refused? Why? @ -None Did you discuss the management of the patient with other professionals ([facility] [place] i.e. KESHA Heredia, CHERRY PICKER OPERATOR, lab, RT, psych nurse, director of social work, adjunct lecturer, teacher, chief strategy officer, community case manager)? Give summary @ -No Was smoking cessation discussed for >3mins.? @ -No Was critical care preformed (if so, how long)? @ -No Were there social determinants of health that impacted care today? How? (Homelessness, low income, unemployed, alcoholism, drug addiction, transportation, low edu. Level, literacy, decrease access to med. care, detention, rehab)? @ -No Was there de-escalation of care discussed even if they declined (Discuss DNR or withdrawal of care, Hospice)? DNR status @ -No What co-morbidities impacted this encounter? (DM, HTN, Smoking, COPD, CAD, Cancer, CVA, ARF, Chemo, Hep., AIDS, mental health diagnosis, sleep apnea, morbid obesity)? @ -None Was patient admitted / discharged? Hospital course, mention meds given and route, prescriptions, significant lab abnormalities, going to OR and other pertinent info. @ -Patient presents with somewhat chronic atypical chest pain. Worse over the last few days. She still states that seems to be anxiety in nature. Has no other acute complaints at this time. I discussed with the patient we will obtain cardiopulmonary workup. She does request a D-dimer. Patient was in agreement this plan. She will be symptomatically treated with IV Ativan, Zofran, 1 L fluid bolus as well as 324 mg of aspirin. Patient was in agreement this plan. Vital signs within acceptable limits. EKG shows no signs of acute ischemia. Labs remarkable for normal D-dimer, undetectable troponin. Remainder the labs unremarkable chair. Chest x-ray unremarkable. At this time, patient is still having the atypical chest pain like symptoms. States it feels somewhat better. Discussed the results with the patient. It is chronic discomfort. No cardiac history for the patient. I did offer repeat troponin testing which she was in agreement with. Will obtain a 3-hour troponin and EKG. We will attempt treatment with Toradol as well as GI cocktail this time. Patient was in agreement this plan. Patient signed out to oncoming ER physician Dr. Forte pending results of workup. Undiagnosed new problem with uncertain prognosis? @ -No Drug Therapy requiring intensive monitoring for toxicity (Heparin, Nitro, Insulin, Cardizem)? @ -No Were any procedures done? @ -No (Jr Peterson) Was patient admitted / discharged? Hospital course, mention meds given and route, prescriptions, significant lab abnormalities, going to OR and other pertinent info. @ -[Due to this patient as a signout pending the lab results. When also returned I discussed the results with patient and family. She does feel better and would like to go home. Discussed appropriate further care as well as going for the stress echo that she had missed. Discussed return parameters as well. Undiagnosed new problem with uncertain prognosis? @ -[No] Drug Therapy requiring intensive monitoring for toxicity (Heparin, Nitro, Insulin, Cardizem)? @ -[No] Were any procedures done? @ -[No] Diagnosis/symptom? @ -[Chest pain Acute, or Chronic, or Acute on Chronic? @ -[Acute Uncomplicated (without systemic symptoms) or Complicated (systemic symptoms)? @ -[Uncomplicated Side effects of treatment? @ -[No] Exacerbation, Progression, or Severe Exacerbation? @ -[No] Poses a threat to life or bodily function? How? (Chest pain, [place], [place], pneumonia, PE, COPD, DKA, ARF, appy, cholecystitis, CVA, Diverticulitis, Homicidal, Suicidal, threat to staff... and all critical care pts) @ -[No] (Long Forte) - Lab Data Lab Results 08/03/23 08/03/23 08/03/23 Range/Units 13:13 13:13 13:13 WBC 9.3 (3.8-10.6) k/uL RBC 4.18 (3.80-5.40) m/uL Hgb 13.5 (11.4-16.0) gm/dL Hct 40.4 (34.0-46.0) % MCV 96.7 (80.0-100.0) fL MCH 32.3 (25.0-35.0) pg MCHC 33.3 (31.0-37.0) g/dL RDW 12.3 (11.5-15.5) % Plt Count 266 (150-450) k/uL MPV 7.3 Neutrophils % 62 % Lymphocytes % 29 % Monocytes % 4 % Eosinophils % 2 % Basophils % 1 % Neutrophils # 5.8 (1.3-7.7) k/uL Lymphocytes # 2.7 (1.0-4.8) k/uL Monocytes # 0.4 (0-1.0) k/uL Eosinophils # 0.2 (0-0.7) k/uL Basophils # 0.0 (0-0.2) k/uL PT 10.4 (10.0-12.5) sec INR 0.9 (<1.2) APTT 24.7 (22.0-30.0) sec D-Dimer 0.35 (<0.60) mg/L FEU Sodium 136 L (137-145) mmol/L Potassium 4.2 (3.5-5.1) mmol/L Chloride 105 (98-107) mmol/L Carbon Dioxide 19 L (22-30) mmol/L Anion Gap 12 mmol/L BUN 10 (7-17) mg/dL Creatinine 0.74 (0.52-1.04) mg/dL Est GFR (CKD-EPI)AfAm >90 (>60 ml/min/1.73 sqM) Est GFR (CKD-EPI)NonAf >90 (>60 ml/min/1.73 sqM) Glucose 81 (74-99) mg/dL Calcium 9.4 (8.4-10.2) mg/dL Magnesium 1.9 (1.6-2.3) mg/dL Total Bilirubin 0.7 (0.2-1.3) mg/dL AST 33 (14-36) U/L ALT 36 H (4-34) U/L Alkaline Phosphatase 62 (38-126) U/L Troponin I (0.000-0.034) ng/mL NT-Pro-B Natriuret Pep 24 pg/mL Total Protein 7.8 (6.3-8.2) g/dL Albumin 4.8 (3.5-5.0) g/dL Lipase 45 (23-300) U/L 08/03/23/08/20 Range/Units 13:13 16:30 WBC (3.8-10.6) k/uL RBC (3.80-5.40) m/uL Hgb (11.4-16.0) gm/dL Hct (34.0-46.0) % MCV (80.0-100.0) fL MCH (25.0-35.0) pg MCHC (31.0-37.0) g/dL RDW (11.5-15.5) % Plt Count (150-450) k/uL MPV Neutrophils % % Lymphocytes % % Monocytes % % Eosinophils % % Basophils % % Neutrophils # (1.3-7.7) k/uL Lymphocytes # (1.0-4.8) k/uL Monocytes # (0-1.0) k/uL Eosinophils # (0-0.7) k/uL Basophils # (0-0.2) k/uL PT (10.0-12.5) sec INR (<1.2) APTT (22.0-30.0) sec D-Dimer (<0.60) mg/L FEU Sodium (137-145) mmol/L Potassium (3.5-5.1) mmol/L Chloride (98-107) mmol/L Carbon Dioxide (22-30) mmol/L Anion Gap mmol/L BUN (7-17) mg/dL Creatinine (0.52-1.04) mg/dL Est GFR (CKD-EPI)AfAm (>60 ml/min/1.73 sqM) Est GFR (CKD-EPI)NonAf (>60 ml/min/1.73 sqM) Glucose (74-99) mg/dL Calcium (8.4-10.2) mg/dL Magnesium (1.6-2.3) mg/dL Total Bilirubin (0.2-1.3) mg/dL AST (14-36) U/L ALT (4-34) U/L Alkaline Phosphatase (38-126) U/L Troponin I <0.012 <0.012 (0.000-0.034) ng/mL NT-Pro-B Natriuret Pep pg/mL Total Protein (6.3-8.2) g/dL Albumin (3.5-5.0) g/dL Lipase (23-300) U/L - EKG Data EKG Comments: 12-lead Electrocardiogram Interpretation Note EKG was reviewed and interpreted by myself. 12-lead ECG performed at 1254 is interpreted by me as revealing normal sinus rhythm at a rate of 75 beats per minute. Tillar is normal. MO interval is 150 ms, QRS duration is 82 ms, QTc is 397 ms.. There were no ST or T wave abnormalities to suggest myocardial ischemia or injury. R wave progression across the precordium was satisfactory. By my interpretation this EKG is non-diagnostic for acute ischemia. (Jr Peterson) Disposition <Jr Peterson - Last Filed: 08/05/23 17:01> Is patient prescribed a controlled substance at d/c from ED?: No <Long Forte - Last Filed: 08/06/23 12:34> Clinical Impression: Chest pain Disposition: HOME SELF-CARE Condition: Good Instructions (If sedation given, give patient instructions): Chest Pain (ED) Prescriptions: Omeprazole [PriLOSEC] 20 mg PO AC-BID #40 cap Montelukast [Singulair] 10 mg PO DAILY #20 tab Referrals: Tiffanie Graham MD [Primary Care Provider] - 1-2 days
[2023-08-03] MEDS: KETOROLAC 15 MG/ML 1 ML VIAL IVP STA (14:46)
[2023-08-03] MEDS: MAG HYDROX/AL HYDROX/SIMETH 30 ML, HYOSCYAMINE ELIXIR 10 ML, LIDOCAINE VISCOUS 2% 10 ML PO STA (15:14)
[2023-08-03] MEDS: MORPHINE SULFATE 4 MG/ML SYRINGE IVP STA (17:02)
[2023-08-03 17:55] VITALS: BP 114/72; PULSE 98; RESP 18
== END 2023-08-03 17:55 | disposition home or self-care (01) ==
LOC: EC 11:45
DX: G89.29 Other chronic pain (principal); R07.89 Other chest pain; Z88.0 Allergy status to penicillin; Z88.1 Allergy status to other antibiotic agents; Z88.2 Allergy status to sulfonamides; Z91.048 Other nonmedicinal substance allergy status; Z91.018 Allergy to other foods
CPT/HCPCS: 36415; 85379; 83880; 80053; 83690; 83735; 84484; 85025; 85610; 85730; 71046; 99285; 96374; 96375 ×2; 96376; 96361; J2060; J2270; J2405

== ENCOUNTER 2023-09-04 13:53 | Emergency (ER) | payer MEDICAID, OTHER ==
[2023-09-04 13:57] VITALS: RESP 18
--- NOTE | 2023-09-04 14:19 | ED ---
Abdominal Pain HPI - General Chief Complaint: Abdominal Pain Stated Complaint: abd pain Time Seen by Provider: 09/04/23 14:10 Source: patient, RN notes reviewed Mode of arrival: ambulatory Limitations: no limitations - History of Present Illness Initial Comments: This is a 28-year-old female with a past medical history of nephrolithiasis who presents to the emergency department chief complaint of bilateral flank pain radiation to the groin over the past few days that is worsening over the past few hours. She states that she was recently informed that she had a spontaneous and following up with her OB. However patient states that this pain feels extremely similar to when she has had kidney stones in the past, patient follows with Dr. Lantigua where she has undergone lithotripsy and stent placement. endorses dysuria and increased urinary frequency and urgency. - Related Data Home Medications Medication Instructions Recorded Confirmed Albuterol Nebulized [Ventolin 2.5 mg INHALATION RT-QID PRN 05/18/22 08/03/23 Nebulized] Dicyclomine [Bentyl] 10 mg PO QID PRN 05/18/22 08/03/23 Levothyroxine Sodium [Synthroid] 137 mcg PO DAILY 05/18/22 08/03/23 Albuterol Sulfate [Albuterol 1 - 2 puff INHALATION RT-Q4H PRN 06/22/22 08/03/23 Sulfate Hfa] ALPRAZolam [Xanax] 1 mg PO BID PRN 03/10/23 08/03/23 Montelukast [Singulair] 10 mg PO DAILY 03/10/23 08/03/23 Cholecalciferol [Vitamin D3 (25 50 mcg PO DAILY 04/25/23 08/03/23 Mcg = 1000 Iu)] ARIPiprazole [Abilify] 4 mg PO DAILY 05/13/23 08/03/23 Omeprazole 40 mg PO HS 05/13/23 08/03/23 HYDROcodone/APAP 10-325MG [[place] 1 tab PO Q8H PRN 06/05/23 08/03/23 10-325] Magnesium Oxide [Mag-Ox] 400 mg PO DAILY 06/05/23 08/03/23 Metoprolol Succinate [Metoprolol 25 mg PO BID 06/05/23 08/03/23 Succinate ER] L.acidoph,Paracasei, B.lactis 1 cap PO DAILY 06/27/23 08/03/23 [Probiotic] buPROPion XL [Wellbutrin XL] 150 mg PO DAILY 06/30/23 08/03/23 Lumateperone Tosylate [Caplyta] 21 mg PO DAILY 08/03/23 08/03/23 Rizatriptan Benzoate [Rizatriptan] 5 mg PO DAILY PRN 08/03/23 08/03/23 Previous Rx's Medication Instructions Recorded Ondansetron Odt [Zofran Odt] 4 mg PO Q8HR PRN #15 tab 07/14/23 Montelukast [Singulair] 10 mg PO DAILY #20 tab 08/03/23 Omeprazole [PriLOSEC] 20 mg PO AC-BID #40 cap 08/03/23 HYDROcodone/APAP 10-325MG [[place] 1 tab PO Q6H PRN #15 tab 09/04/23 10-325] Allergies Allergy/AdvReac Type Severity Reaction Status Date / Time amoxicillin Allergy Rash/Hives Verified 09/04/23 13:57 nickel Allergy Rash/Hives Verified 09/04/23 13:57 sulfamethoxazole Allergy Rash/Hives Verified 09/04/23 13:57 [From ] trimethoprim [From ] Allergy Rash/Hives Verified 09/04/23 13:57 corn AdvReac Diarrhea Verified 09/04/23 13:57 Review of Systems ROS Statement: Those systems with pertinent positive or pertinent negative responses have been documented in the HPI. ROS Other: All systems not noted in ROS Statement are negative. 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 platemaker, History of Any Multi-Drug Resistant Organisms: None Reported Past Surgical History: Appendectomy, Section, Cholecystectomy Additional Past Surgical History / Comment(s): thyroidectomy 09/2017, Laparoscopic exam w/ cautery endometriosis 2012 Past Anesthesia/Blood Transfusion Reactions: No Reported Reaction Past Psychological History: Anxiety, Depression Smoking Status: Never smoker Past Alcohol Use History: Occasional, Rare Past Drug Use History: None Reported - Past Family History Mother Family Medical History: Asthma Father Family Medical History: Coronary Artery Disease (CAD), CVA/TIA, Diabetes Mellitus Brother(s) Family Medical History: Asthma General Exam Limitations: no limitations General appearance: alert, in no apparent distress Head exam: Present: atraumatic, normocephalic, normal inspection Eye exam: Present: normal appearance, PERRL, EOMI. Absent: scleral icterus, conjunctival injection, periorbital swelling ENT exam: Present: normal exam, mucous membranes moist Neck exam: Present: normal inspection. Absent: tenderness, meningismus, lymphadenopathy Cardiovascular Exam: Present: regular rate, normal rhythm, normal heart sounds. Absent: systolic murmur, diastolic murmur, rubs, gallop, clicks GI/Abdominal exam: Present: soft, normal bowel sounds. Absent: distended, tenderness, guarding, rebound, rigid Extremities exam: Present: normal inspection, full ROM, normal capillary refill. Absent: tenderness, pedal edema, joint swelling, calf tenderness Course Vital Signs 09/04/23 09/04/23 09/04/23 13:55 14:56 17:08 Temperature 98.0 F Pulse Rate 122 H 132 H 115 H Respiratory 18 18 Rate Blood Pressure 139/78 141/88 O2 Sat by Pulse 100 98 93 L Oximetry 09/04/23 09/04/23 18:00 18:15 Temperature 98.1 F 98.1 F Pulse Rate 77 77 Respiratory 18 18 Rate Blood Pressure 117/79 117/79 O2 Sat by Pulse 95 95 Oximetry Medical Decision Making - Medical Decision Making Was pt. sent in by a medical professional or institution (, PA, SILVER WRAPPER, urgent care, hospital, or correction...) When possible be specific @ -No Did you speak to anyone other than the patient for history (EMS, parent, family, police, friend...)? What history was obtained from this source @ -No Did you review nursing and triage notes (agree or disagree)? Why? @ -I reviewed and agree with nursing and triage notes Were old charts reviewed (outside hosp., previous admission, EMS record, old EKG, old radiological studies, urgent care reports/EKG's, correction records)? Report findings @ -No old charts were reviewed Differential Diagnosis (chest pain, altered mental status, abdominal pain women, abdominal pain men, vaginal bleeding, weakness, fever, dyspnea, syncope, headache, dizziness, GI bleed, back pain, seizure, CVA, palpatations, mental health, musculoskeletal)? @ -Differential Abdominal Pain Women: Appendicitis, Cholecystitis, diverticulosis, ischemic bowel, pancreatitis, hepatitis, UTI, gastroenteritis, AAA, incarcerated hernia, bowel obstruction, constipation, inflammatory bowel, hepatitis, peptic ulcer disease, splenic infarction, perforated viscus, vulvitis, ovarian torsion, PID, kidney stone, placenta abruption, this is not meant to be an all-inclusive list EKG interpreted by me (3pts min.). @ -none X-rays interpreted by me (1pt min.). @ -None done CT interpreted by me (1pt min.). @ -CT of the abdomen pelvis without contrast revealed stable bilateral punctate obstructing renal calcifications, stable steatosis and mild hepatomeagly. U/S interpreted by me (1pt. min.). @ -None done What testing was considered but not performed or refused? (CT, X-rays, U/S, labs)? Why? @ -None What meds were considered but not given or refused? Why? @ -None Did you discuss the management of the patient with other professionals (professionals i.e. , PA, SILVER WRAPPER, lab, RT, psych nurse, social media community manager, telephone collector, teacher, collection officer, family preservation caseworker)? Give summary @ -No Was smoking cessation discussed for >3mins.? @ -No Was critical care preformed (if so, how long)? @ -No Were there social determinants of health that impacted care today? How? (Homelessness, low income, unemployed, alcoholism, drug addiction, transportation, low edu. Level, literacy, decrease access to med. care, [place] [facility], rehab)? @ -No Was there de-escalation of care discussed even if they declined (Discuss DNR or withdrawal of care, Hospice)? DNR status @ -No What co-morbidities impacted this encounter? (DM, HTN, Smoking, COPD, CAD, Cancer, CVA, ARF, Chemo, Hep., AIDS, mental health diagnosis, sleep apnea, morbid obesity)? @ -None Was patient admitted / discharged? Hospital course, mention meds given and route, prescriptions, significant lab abnormalities, going to OR and other pertinent info. @ -Discharged. 28-year-old female with bilateral flank pain with radiation into the abdomen. On exam reveals tenderness, abdomen is soft and no signs of rigidity. Patient will be evaluated via laboratory studies including urinalysis and CT of the abdomen pelvis. Discussed with patient she would like to undergo hCG testing, she states that this will test positive due to her recent diagnosis of miscarriage and is okay with undergoing the abdomen for evaluation of potential kidney stone. She is also symptomatically treated with IV fluids, Zofran, and pain medication. On reevaluation, patient states that pain has not improved. For given additional dose of pain medication. CBC and CMP unremarkable, urinalysis reveals small blood, no signs of infection. ET unremarkable for signs of hydronephrosis or obstructing kidney stone. Patient may have been experiencing symptoms after passage of a stone initiation experiencing mild dysuria however there is no signs of infection on urinalysis. Patient was provided with additional pain medication surgery to take place as needed. Recommend patient follows up with her urologist for further evaluation. Strict return parameters communicated and she has verbalized understanding. Case discussed with Dr. Ibrara. Undiagnosed new problem with uncertain prognosis? @ -No Drug Therapy requiring intensive monitoring for toxicity (Heparin, Nitro, Insulin, Cardizem)? @ -No Were any procedures done? @ -No Diagnosis/symptom? @ -Abdominal pain Acute, or Chronic, or Acute on Chronic? @ -Acute Uncomplicated (without systemic symptoms) or Complicated (systemic symptoms)? @ -Uncomplicated Side effects of treatment? @ -No Exacerbation, Progression, or Severe Exacerbation? @ -No Poses a threat to life or bodily function? How? (Chest pain, USA, OR, pneumonia, PE, COPD, DKA, ARF, appy, cholecystitis, CVA, Diverticulitis, Homicidal, Suicidal, threat to staff... and all critical care pts) @ -No - Lab Data Result diagrams: 09/04/23 14:33 09/04/23 14:33 Lab Results 09/04/23 09/04/23 09/04/23 Range/Units 14:33 14:33 14:33 WBC 7.4 (3.8-10.6) k/uL RBC 4.03 (3.80-5.40) m/uL Hgb 12.9 (11.4-16.0) gm/dL Hct 40.1 (34.0-46.0) % MCV 99.6 (80.0-100.0) fL MCH 32.1 (25.0-35.0) pg MCHC 32.2 (31.0-37.0) g/dL RDW 12.5 (11.5-15.5) % Plt Count 350 (150-450) k/uL MPV 7.3 Neutrophils % 54 % Lymphocytes % 37 % Monocytes % 4 % Eosinophils % 2 % Basophils % 1 % Neutrophils # 4.0 (1.3-7.7) k/uL Lymphocytes # 2.7 (1.0-4.8) k/uL Monocytes # 0.3 (0-1.0) k/uL Eosinophils # 0.2 (0-0.7) k/uL Basophils # 0.1 (0-0.2) k/uL Sodium 137 (137-145) mmol/L Potassium 5.0 (3.5-5.1) mmol/L Chloride 101 (98-107) mmol/L Carbon Dioxide 25 (22-30) mmol/L Anion Gap 11 mmol/L BUN 17 (7-17) mg/dL Creatinine 0.86 (0.52-1.04) mg/dL Est GFR (CKD-EPI)AfAm >90 (>60 ml/min/1.73 sqM) Est GFR (CKD-EPI)NonAf >90 (>60 ml/min/1.73 sqM) Glucose 177 H (74-99) mg/dL Calcium 9.9 (8.4-10.2) mg/dL Total Bilirubin 0.4 (0.2-1.3) mg/dL AST 40 H (14-36) U/L ALT 43 H (4-34) U/L Alkaline Phosphatase 73 (38-126) U/L Total Protein 8.0 (6.3-8.2) g/dL Albumin 4.9 (3.5-5.0) g/dL Urine Color Light Yellow Urine Appearance Clear (Clear) Urine pH 5.5 (5.0-8.0) Ur Specific [place] 1.015 (1.001-1.035) Urine Protein Negative (Negative) Urine Glucose (UA) Negative (Negative) Urine Ketones Negative (Negative) Urine Blood Small H (Negative) Urine Nitrite Negative (Negative) Urine Bilirubin Negative (Negative) Urine Urobilinogen <2.0 (<2.0) mg/dL Ur Leukocyte Esterase Negative (Negative) Urine RBC 1 (0-5) /hpf Urine WBC 4 (0-5) /hpf Ur Squamous Epith Cells 2 (0-4) /hpf Urine Bacteria Few H (None) /hpf Urine Mucus Rare H (None) /hpf Disposition Clinical Impression: Abdominal pain, Flank pain Disposition: HOME SELF-CARE Condition: Good Instructions (If sedation given, give patient instructions): Abdominal Pain (ED) Prescriptions: HYDROcodone/APAP 10-325MG [[place] 10-325] 1 tab PO Q6H PRN #15 tab PRN Reason: pain Is patient prescribed a controlled substance at d/c from ED?: Yes When asked, does pt state using other controlled substances?: Yes If prescribed controlled substance>3 days was MAPS reviewed?: Prescribed <3 Days Referrals: Tiffanie Graham MD [Primary Care Provider] - 1-2 days Time of Disposition: 17:47
[2023-09-04] MEDS: SODIUM CHLORIDE 0.9% 1,000 ML IV STA (14:38)
[2023-09-04] MEDS: ONDANSETRON 4 MG/2 ML VIAL IVP STA (14:39)
[2023-09-04] MEDS: MORPHINE SULFATE 4 MG/ML SYRINGE IVP STA (14:39)
[2023-09-04 15:01] LABS: Basophils # (A) 0.1 k/uL (0-0.2); Basophils % (A) 1 %; Eosinophils # (A) 0.2 k/uL (0-0.7); Eosinophils % (A) 2 %; HCT 40.1 % (34.0-46.0); HGB 12.9 gm/dL (11.4-16.0); Lymphocytes # (A) 2.7 k/uL (1.0-4.8); Lymphocytes % (A) 37 %; MCH 32.1 pg (25.0-35.0); MCHC 32.2 g/dL (31.0-37.0); MCV 99.6 fL (80.0-100.0); Mean Platelet Volume 7.3; Monocytes # (A) 0.3 k/uL (0-1.0); Monocytes % (A) 4 %; Neutrophils % (A) 54 %; Platelet Count 350 k/uL (150-450); RBC 4.03 m/uL (3.80-5.40); RDW 12.5 % (11.5-15.5); WBC 7.4 k/uL (3.8-10.6)
--- NOTE | 2023-09-04 15:14 | CT ---
EXAMINATION TYPE: CT abdomen pelvis wo con DATE OF EXAM: 09/04/2023 HISTORY: bilateral flank pain/ hx stones CT DLP: 551.4 mGycm. Automated Exposure Control for Dose Reduction was Utilized. TECHNIQUE: CT scan of the abdomen and pelvis is performed without oral or IV contrast. COMPARISON: 05/17/2023 FINDINGS: The lungs are clear. There is surgical absence of the gallbladder. There is no biliary ductal dilatation. There is mild fatty infiltration of liver and mild hepatomegaly which was seen previously. There is n o organomegaly involving the pancreas, spleen or adrenal glands. There are 2 stable nonobstructing right renal punctate calcifications and stable single left nonobstr ucting punctate calcification. There is no definite hydronephrosis. The caliber of the abdominal aorta is normal and there is no retroperitoneal adenopathy or hemorrhage . The bowel loops are normal in caliber is no evidence of obstruction. No inflammatory changes are iden tified in the mesentery and there is no free intraperitoneal air or fluid. There is no pelvic mass, free fluid, abscess or adenopathy. The osseous structures and soft tissues are unremarkable. IMPRESSION: 1. Cholecystectomy. 2. Stable bilateral punctate nonobstructing renal calcifications. 3. Stable steatosis and mild hepatomegaly.
[2023-09-04] MEDS: HYDROmorphone 1 MG/ML 1 ML SYRINGE IVP STA ×2 (15:18→16:58)
[2023-09-04 15:29] LABS: Appearance,Urine Clear (Clear); Bacteria,Urine Few /hpf; Bilirubin,Urine Negative (Negative); Blood,Urine Small (Negative); Color,Urine Light Yellow; Glucose,Urine (UA) Negative (Negative); Ketones,Urine Negative (Negative); Leukocyte Esterase,Urine Negative (Negative); Mucus,Urine Rare /hpf; Nitrite,Urine Negative (Negative); PH, Urine 5.5 (5.0-8.0); Protein,Urine Negative (Negative); RBC,Urine 1 /hpf (0-5); Specific Gravity,Urine 1.015 (1.001-1.035); Squamous Epithelial Cell,Urine 2 /hpf (0-4); Urobilinogen,Urine <2.0 mg/dL (<2.0); WBC,Urine 4 /hpf (0-5)
[2023-09-04 15:38] LABS: ALT 43 U/L (4-34); AST 40 U/L (14-36); African American GFR (CKD) >90 (>60 ml/min/1.73 sqM); Albumin 4.9 g/dL (3.5-5.0); Alkaline Phosphatase 73 U/L (38-126); Anion Gap 11 mmol/L; Blood Urea Nitrogen 17 mg/dL (7-17); Calcium 9.9 mg/dL (8.4-10.2); Carbon Dioxide 25 mmol/L (22-30); Chloride 101 mmol/L (98-107); Glucose 177 mg/dL (74-99); Non-African American GFR(CKD) >90 (>60 ml/min/1.73 sqM); Sodium 137 mmol/L (137-145); Total Bilirubin 0.4 mg/dL (0.2-1.3)
[2023-09-04] MEDS: MORPHINE SULFATE 2 MG/ML SYRINGE IVP ONE (18:00)
[2023-09-04 18:16] VITALS: BP 117/79; PULSE 77; TEMP 98.1
== END 2023-09-04 18:17 | disposition home or self-care (01) ==
LOC: EC 13:53
DX: R16.0 Hepatomegaly, not elsewhere classified (principal); N28.89 Other specified disorders of kidney and ureter; Z88.0 Allergy status to penicillin; Z88.2 Allergy status to sulfonamides; Z88.1 Allergy status to other antibiotic agents; Z91.018 Allergy to other foods; Z88.8 Allergy status to other drugs, medicaments and biological substances
CPT/HCPCS: 36415; 80053; 85025; 81001; 74176; 99284; 96374; 96375 ×2; 96376 ×2; 96361 ×4; J2270 ×2; J2405; J1170

== ENCOUNTER 2023-10-05 15:18 | Emergency (ER) | payer MEDICAID, OTHER ==
[2023-10-05] MEDS ORDERED: MORPHINE SULFATE 4 MG/ML SYRINGE ONE ×2 (17:32→18:17)
[2023-10-05] MEDS ORDERED: ONDANSETRON 4 MG/2 ML VIAL ONE (18:56)
[2023-10-05] MEDS ORDERED: KETOROLAC 15 MG/ML 1 ML VIAL ONE (19:48)
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
--- NOTE | 2023-11-02 17:23 | XR ---
Patient: Ally Wesley L Ordering Physician: Unknown, Unknown ID: [id number] Phone, Pager: Phone: N/A Pager: N/A : 1995 Age/Gender: 28Y, F Primary Location: N/A Procedure: XR knee complete LT Study Date: 10/05/2023 7:34:00 PM EXAMINATION TYPE: XR knee complete LT DATE OF EXAM: 10/22/2023 11:39 AM CLINICAL INDICATION: Pain COMPARISON: None. TECHNIQUE: XR knee complete LT; examined in Frontal, lateral and oblique projections. FINDINGS: No evidence of any acute osseous pathology, soft tissue swelling, or joint effusion is no alejandra. IMPRESSION: No acute osseous pathology.
--- NOTE | 2023-11-02 17:24 | XR ---
Patient: Ally Wesley L Ordering Physician: Unknown, Unknown ID: [id number] Phone, Pager: Phone: N/A Pager: N/A : 1995 Age/Gender: 28Y, F Primary Location: N/A Procedure: XR THORACIC SPINE 2 VIEWS Study Date: 10/05/2023 7:38:00 PM EXAMINATION TYPE: XR thoracic spine 2V DATE OF EXAM: 10/22/2023 11:40 AM CLINICAL INDICATION: Pain COMPARISON: None TECHNIQUE: XR thoracic spine 2V views of the spine in Frontal and lateral projections. FINDINGS: No evidence of acute fracture. There is no evidence of disk space narrowing or loss of vertebral bod y height. There is normal alignment of the thoracic vertebral bodies. IMPRESSION: No acute osseous pathology.
--- NOTE | 2023-11-02 17:24 | XR ---
Patient: Ally Wesley L Ordering Physician: Unknown, Unknown ID: [id number] Phone, Pager: Phone: N/A Pager: N/A : 1995 Age/Gender: 28Y, F Primary Location: N/A Procedure: XR elbow complete L T Study Date: 10/05/2023 7:32:00 PM EXAMINATION TYPE: XR elbow complete LT DATE OF EXAM: 10/22/2023 11:38 AM CLINICAL INDICATION: Pain COMPARISON: None TECHNIQUE: XR elbow complete LT; elbow was examined in AP, lateral, and oblique projections. FINDINGS: No evidence of any acute osseous pathology, joint dislocation, or soft tissue swelling is n oted. No evidence of joint effusion is present. IMPRESSION: No evidence of acute fracture.
--- NOTE | 2023-11-02 17:25 | XR ---
Patient: Ally Wesley L Ordering Physician: Unknown, Unknown ID: [id number] Phone, Pager: Phone: N/A Pager: N/A : 1995 Age/Gender: 28Y, F Primary Location: N/A Procedure: XR Forearm 2 Views Left Study Date: 10/05/2023 7:30:00 PM EXAMINATION TYPE: XR forearm LT DATE OF EXAM: 10/22/2023 11:37 AM CLINICAL INDICATION: Pain COMPARISON: None TECHNIQUE: XR forearm LT; forearm was examined in AP and lateral projections. FINDINGS: No acute osseous pathology, soft tissue swelling or joint dislocations are seen. IMPRESSION: No evidence of acute fracture.
== END 2023-10-05 20:00 | disposition home or self-care (01) ==
LOC: EC 15:18
CPT/HCPCS: 70450; 72072; 72125; 96374; 96375; 99284

== ENCOUNTER 2023-10-09 14:32 | Emergency (ER) | payer MEDICAID, OTHER ==
[2023-10-09] MEDS ORDERED: KETOROLAC 15 MG/ML 1 ML VIAL ONE (18:10)
[2023-10-09] MEDS ORDERED: ONDANSETRON 4 MG/2 ML VIAL ONE (18:11)
[2023-10-09] MEDS ORDERED: HYDROmorphone 1 MG/ML 1 ML SYRINGE ONE ×2 (18:11→19:36)
[2023-10-09] MEDS ORDERED: HYDROmorphone 0.5 MG/0.5 ML SYRINGE ONE (21:33)
[2023-10-09] MEDS ORDERED: ACET/COD 300 MG/30 MG STARTER PACK 6 TAB BTL PO ONE (21:33)
[2023-10-09] MEDS ORDERED: CYCLOBENZAPRINE 10MG STARTER 3 TAB BTL ONE (21:33)
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
--- NOTE | 2023-11-15 10:10 | XR ---
EXAMINATION TYPE: XR elbow complete LT DATE OF EXAM: 10/09/2023 CLINICAL INDICATION: Pain COMPARISON: None TECHNIQUE: XR elbow complete LT; elbow was examined in AP, lateral, and oblique projections. FINDINGS: No evidence of any acute osseous pathology, joint dislocation, or soft tissue swelling is noted. No evidence of joint effusion is present. IMPRESSION: No evidence of acute fracture. [facility], , 11/15/2023 10:08 AM
== END 2023-10-09 22:00 | disposition home or self-care (01) ==
LOC: EC 14:32
CPT/HCPCS: 96374; 96375; 96376; 99284

== ENCOUNTER 2023-10-16 12:22 | Emergency (ER) | payer MEDICAID, OTHER ==
[2023-10-16] MEDS ORDERED: KETOROLAC 15 MG/ML 1 ML VIAL ONE (13:27)
[2023-10-16] MEDS ORDERED: DEXAMETHASONE SOD PHOSPHATE 10 MG/ML 1 ML VIAL ONE (13:27)
[2023-10-16] MEDS ORDERED: HYDROmorphone 1 MG/ML 1 ML SYRINGE ONE ×2 (13:27→14:48)
[2023-10-16] MEDS ORDERED: MORPHINE SULFATE 4 MG/ML SYRINGE ONE ×2 (16:08→17:20)
[2023-10-16] MEDS ORDERED: MAG HYDROX/AL HYDROX/SIMETH 30 ML CUP ONE (16:11)
[2023-10-16] MEDS ORDERED: LIDOCAINE VISCOUS 2% 15 ML CUP ONE (16:11)
[2023-10-16] MEDS ORDERED: guaiFENesin SYRUP 100MG/5ML 200 MG/10 ML CUP ONE (16:24)
--- NOTE | 2023-11-14 10:59 | XR ---
Patient: Ally Wesley Ordering Physician: Unknown, Unknown ID: [id number] Phone, Pager: Phone: N/A Pager: N/A : 1995 Age/Gender: 28Y, F Primary Location: N/A Procedure: XR elbow complete L T Study Date: 10/16/2023 2:37:10 PM EXAMINATION TYPE: XR elbow complete LT DATE OF EXAM: 10/16/2023 6:50 PM CLINICAL INDICATION: Pain COMPARISON: None TECHNIQUE: XR elbow complete LT; elbow was examined in AP, lateral, and oblique projections. FINDINGS: No evidence of any acute osseous pathology, joint dislocation, or soft tissue swelling is n oted. No evidence of joint effusion is present. IMPRESSION: No evidence of acute fracture.
== END 2023-10-16 17:40 | disposition home or self-care (01) ==
LOC: EC 12:22
CPT/HCPCS: 96374; 96375; 96376; 99283

== ENCOUNTER → 2023-11-15 | Outpatient (CLI) | payer MEDICAID, OTHER ==
[2023-11-15 08:09] LABS: Basophils % (A) 1 %; Eosinophils # (A) 0.2 k/uL (0-0.7); Eosinophils % (A) 2 %; HCT 41.7 % (34.0-46.0); HGB 13.8 gm/dL (11.4-16.0); Lymphocytes # (A) 2.7 k/uL (1.0-4.8); Lymphocytes % (A) 38 %; MCH 31.5 pg (25.0-35.0); MCHC 33.2 g/dL (31.0-37.0); MCV 94.8 fL (80.0-100.0); Monocytes # (A) 0.4 k/uL (0-1.0); Monocytes % (A) 6 %; Neutrophils # (A) 3.7 k/uL (1.3-7.7); Neutrophils % (A) 51 %; Platelet Count 306 k/uL (150-450); RDW 12.3 % (11.5-15.5); WBC 7.2 k/uL (3.8-10.6)
[2023-11-15 08:26] LABS: ALT 44 U/L (4-34); AST 37 U/L (14-36); African American GFR (CKD) >90 (>60 ml/min/1.73 sqM); Albumin 4.9 g/dL (3.5-5.0); Albumin/Globulin Ratio 1.7; Alkaline Phosphatase 72 U/L (38-126); Anion Gap 13 mmol/L; Blood Urea Nitrogen 18 mg/dL (7-17); Calcium 9.5 mg/dL (8.4-10.2); Carbon Dioxide 19 mmol/L (22-30); Chloride 106 mmol/L (98-107); Globulin 2.9 g/dL; Glucose 100 mg/dL (74-99); Non-African American GFR(CKD) >90 (>60 ml/min/1.73 sqM); Potassium 4.4 mmol/L (3.5-5.1); Sodium 138 mmol/L (137-145); Total Bilirubin 0.6 mg/dL (0.2-1.3); Total Protein 7.8 g/dL (6.3-8.2)
[2023-11-15 08:38] LABS: T4, Free (Free Thyroxine) 1.33 ng/dL (0.78-2.19)
[2023-11-15 17:01] LABS: Chol/HDL Ratio 4.32 Ratio; LDL Cholesterol,Calculated 108.3 mg/dL (0.0-131.0)
[2023-11-15 18:12] LABS: Follicle Stimulating Hormone 3.2 mIU/mL; Luteinizing Hormone 11.6 mIU/mL
== END | disposition home or self-care (01) ==
LOC: LABMAIN 07:31
PROVIDERS: ATTEND Nurse Practitioner Family
DX: Z00.00 Encounter for general adult medical examination without abnormal findings (principal); E66.9 Obesity, unspecified; N92.6 Irregular menstruation, unspecified; E03.9 Hypothyroidism, unspecified; N95.1 Menopausal and female climacteric states; I47.11 Inappropriate sinus tachycardia, so stated
CPT/HCPCS: 80053; 80061; 82306; 82607; 82670; 83001; 83002; 83036; 83498; 84144; 84146; 84403; 84439; 84443; 84481; 84702; 85025

== ENCOUNTER 2023-11-17 13:07 | Emergency (ER) | payer MEDICAID, OTHER ==
[2023-11-17] MEDS: methylPREDNISolone SOD SUCCI 125 MG/2 ML VIAL IV STA (13:11)
[2023-11-17] MEDS: FAMOTIDINE 20 MG/2 ML VIAL IV STA (13:11)
[2023-11-17] MEDS: ONDANSETRON 4 MG/2 ML VIAL IVP STA ×2 (13:18→14:24)
[2023-11-17] MEDS: diphenhydrAMINE 50 MG/ML 1 ML VIAL IVP STA (13:23)
[2023-11-17] MEDS: LORazepam 2 MG/ML INJ IV STA ×2 (13:23→17:05)
[2023-11-17] MEDS: SODIUM CHLORIDE 0.9% 1,000 ML IV ONE (13:23)
--- NOTE | 2023-11-17 13:38 | ED ---
General Adult HPI - General Chief complaint: Allergic Reaction Stated complaint: Allergic reaction Time Seen by Provider: 11/17/23 13:09 Source: patient, RN notes reviewed, old records reviewed Mode of arrival: ambulatory Limitations: no limitations - History of Present Illness Initial comments: 28-year-old female presenting with difficulty breathing after eating bread that contained banana. 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 Patient has difficulty breathing and sensation that her throat is closing. She also has nausea vomiting. This occurred just prior to arrival. - Related Data Home Medications Medication Instructions Recorded Confirmed Albuterol Nebulized [Ventolin 2.5 mg INHALATION RT-QID PRN 05/18/22 08/03/23 Nebulized] Dicyclomine [Bentyl] 10 mg PO QID PRN 05/18/22 08/03/23 Levothyroxine Sodium [Synthroid] 137 mcg PO DAILY 05/18/22 08/03/23 Albuterol Sulfate [Albuterol 1 - 2 puff INHALATION RT-Q4H PRN 06/22/22 08/03/23 Sulfate Hfa] ALPRAZolam [Xanax] 1 mg PO BID PRN 03/10/23 08/03/23 Montelukast [Singulair] 10 mg PO DAILY 03/10/23 08/03/23 Cholecalciferol [Vitamin D3 (25 50 mcg PO DAILY 04/25/23 08/03/23 Mcg = 1000 Iu)] ARIPiprazole [Abilify] 4 mg PO DAILY 05/13/23 08/03/23 Omeprazole 40 mg PO HS 05/13/23 08/03/23 HYDROcodone/APAP 10-325MG [[place] 1 tab PO Q8H PRN 06/05/23 08/03/23 10-325] Magnesium Oxide [Mag-Ox] 400 mg PO DAILY 06/05/23 08/03/23 Metoprolol Succinate [Metoprolol 25 mg PO BID 06/05/23 08/03/23 Succinate ER] L.acidoph,Paracasei, B.lactis 1 cap PO DAILY 06/27/23 08/03/23 [Probiotic] buPROPion XL [Wellbutrin XL] 150 mg PO DAILY 06/30/23 08/03/23 Lumateperone Tosylate [Caplyta] 21 mg PO DAILY 08/03/23 08/03/23 Rizatriptan Benzoate [Rizatriptan] 5 mg PO DAILY PRN 08/03/23 08/03/23 Previous Rx's Medication Instructions Recorded Ondansetron Odt [Zofran Odt] 4 mg PO Q8HR PRN #15 tab 07/14/23 Montelukast [Singulair] 10 mg PO DAILY #20 tab 08/03/23 Omeprazole [PriLOSEC] 20 mg PO AC-BID #40 cap 08/03/23 HYDROcodone/APAP 10-325MG [[place] 1 tab PO Q6H PRN #15 tab 09/04/23 10-325] oxyCODONE-APAP 10-325MG [Percocet 1 tab PO Q4HR PRN 3 Days #18 tab 11/01/23 10-325 mg] EPINEPHrine (Auto Inject) [Epipen] 0.3 mg IM ONCE PRN #1 each 11/17/23 Famotidine [Pepcid] 20 mg PO DAILY #7 tablet 11/17/23 diphenhydrAMINE [Benadryl] 25 mg PO TID PRN #21 capsule 11/17/23 predniSONE 50 mg PO DAILY #5 tab 11/17/23 Allergies Allergy/AdvReac Type Severity Reaction Status Date / Time amoxicillin Allergy Rash/Hives Verified 11/17/23 13:14 banana Allergy Anaphylaxis Verified 11/17/23 13:14 nickel Allergy Rash/Hives Verified 11/17/23 13:14 sulfamethoxazole Allergy Rash/Hives Verified 11/17/23 13:14 [From ] trimethoprim [From ] Allergy Rash/Hives Verified 11/17/23 13:14 corn AdvReac Diarrhea Verified 11/17/23 13:14 Review of Systems ROS Statement: Those systems with pertinent positive or pertinent negative responses have been documented in the HPI. ROS Other: All systems not noted in ROS Statement are negative. 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 home staging specialist, History of Any Multi-Drug Resistant Organisms: None Reported Past Surgical History: Appendectomy, Section, Cholecystectomy Additional Past Surgical History / Comment(s): thyroidectomy 09/2017, Laparoscopic exam w/ cautery endometriosis 2012 Past Anesthesia/Blood Transfusion Reactions: No Reported Reaction Past Psychological History: Anxiety, Depression Smoking Status: Never smoker Past Alcohol Use History: Occasional, Rare Past Drug Use History: None Reported - Past Family History Mother Family Medical History: Asthma Father Family Medical History: Coronary Artery Disease (CAD), CVA/TIA, Diabetes Mellitus Brother(s) Family Medical History: Asthma General Exam Limitations: no limitations General appearance: alert, in distress Head exam: Present: atraumatic, normocephalic Eye exam: Present: normal appearance, PERRL ENT exam: Present: normal oropharynx Respiratory exam: Present: normal lung sounds bilaterally. Absent: respiratory distress, wheezes, stridor Cardiovascular Exam: Present: regular rate, normal rhythm GI/Abdominal exam: Present: soft. Absent: distended Neurological exam: Present: alert. Absent: motor sensory deficit Skin exam: Present: warm, dry. Absent: urticaria Course Vital Signs 11/17/23 11/17/23 11/17/23 13:11 13:15 13:24 Pulse Rate 124 H Respiratory 26 H 24 24 Rate Blood Pressure 126/110 122/101 O2 Sat by Pulse 97 Oximetry 11/17/23 11/17/23 14:06 14:54 Pulse Rate 113 H 111 H Respiratory 20 18 Rate Blood Pressure 125/110 110/84 O2 Sat by Pulse 98 98 Oximetry Medical Decision Making - Medical Decision Making Was pt. sent in by a medical professional or institution (KESHA Heredia, [employer]ING [employer], urgent care, hospital, or snf...) When possible be specific @ -No Did you speak to anyone other than the patient for history (EMS, parent, family, police, friend...)? What history was obtained from this source @ -No Did you review nursing and triage notes (agree or disagree)? Why? @ -I reviewed and agree with nursing and triage notes Were old charts reviewed (outside hosp., previous admission, EMS record, old EKG, old radiological studies, urgent care reports/EKG's, snf records)? Report findings @ -No old charts were reviewed Differential Diagnosis: Food allergy, anaphylaxis EKG interpreted by me (3pts min.). @ -As above X-rays interpreted by me (1pt min.). @ -None done CT interpreted by me (1pt min.). @ -None done U/S interpreted by me (1pt. min.). @ -None done What testing was considered but not performed or refused? (CT, X-rays, U/S, labs)? Why? @ -None What meds were considered but not given or refused? Why? @ -None Did you discuss the management of the patient with other professionals (professionals i.e. DrMarc, PA, [employer], lab, RT, psych nurse, outreach and education social worker, safety tech, teacher, boat officer, manager of case management)? Give summary @ -No Was smoking cessation discussed for >3mins.? @ -No Was critical care preformed (if so, how long)? @ -[Yes, 35 minutes Were there social determinants of health that impacted care today? How? (Homelessness, low income, unemployed, alcoholism, drug addiction, transportation, low edu. Level, literacy, decrease access to med. care, prison, rehab)? @ -No Was there de-escalation of care discussed even if they declined (Discuss DNR or withdrawal of care, Hospice)? DNR status @ -No What co-morbidities impacted this encounter? (DM, HTN, Smoking, COPD, CAD, Cancer, CVA, ARF, Chemo, Hep., AIDS, mental health diagnosis, sleep apnea, morbid obesity)? @ -History of severe allergy to bananas Was patient admitted / discharged? Hospital course, mention meds given and route, prescriptions, significant lab abnormalities, going to OR and other pertinent info. @ -28-year-old female with known banana allergy who accidentally ate bread containing bananas. Patient developed severe dyspnea and generalized itching. Tongue, lips, oropharynx are within normal limits. There is no stridor. No wheezing. Patient has multiple episodes of vomiting consistent with anaphylaxis. She is given Benadryl, Pepcid, Solu-Medrol. She is observed in the emergency department with improvement in symptoms. No need for epinephrine. Patient does not have an EpiPen at home. Undiagnosed new problem with uncertain prognosis? @ -No Drug Therapy requiring intensive monitoring for toxicity (Heparin, Nitro, Insulin, Cardizem)? @ -No Were any procedures done? @ -No Diagnosis/symptom? @Anaphylaxis to banana Acute, or Chronic, or Acute on Chronic? @ -[Acute Uncomplicated (without systemic symptoms) or Complicated (systemic symptoms)? @ -Default Side effects of treatment? @ -No Exacerbation, Progression, or Severe Exacerbation? @ -No Poses a threat to life or bodily function? How? (Chest pain, [place], [place], pneumonia, PE, COPD, DKA, ARF, appy, cholecystitis, CVA, Diverticulitis, Homicidal, Suicidal, threat to staff... and all critical care pts) @ -[Yes, anaphylaxis Critical Care Time Critical Care Time: Yes Total Critical Care Time: 35 Disposition Clinical Impression: Anaphylaxis Disposition: HOME SELF-CARE Condition: Fair Instructions (If sedation given, give patient instructions): Anaphylaxis (ED) Prescriptions: diphenhydrAMINE [Benadryl] 25 mg PO TID PRN #21 capsule PRN Reason: Allergic Reaction EPINEPHrine (Auto Inject) [Epipen] 0.3 mg IM ONCE PRN #1 each PRN Reason: Anaphylaxis Famotidine [Pepcid] 20 mg PO DAILY #7 tablet predniSONE 50 mg PO DAILY #5 tab Is patient prescribed a controlled substance at d/c from ED?: No Referrals: Tiffanie Graham MD [Primary Care Provider] - 1-2 days Time of Disposition: 19:00
[2023-11-17 15:09] VITALS: RESP 18
[2023-11-17] MEDS: KETOROLAC 15 MG/ML 1 ML VIAL IVP STA (15:47)
[2023-11-17] MEDS: METOPROLOL TARTRATE 25 MG TAB PO STA (19:15)
[2023-11-17 19:31] VITALS: BP 103/87; PULSE 103
== END 2023-11-17 19:43 | disposition home or self-care (01) ==
LOC: EC 13:07
CPT/HCPCS: 96361; 96374; 96375; 96376; 99291

== ENCOUNTER 2023-11-24 12:51 | Observation (INO) | payer MEDICAID, OTHER ==
--- NOTE | 2023-11-24 13:43 | ED ---
Chest Pain HPI - General Chief Complaint: Chest Pain Stated Complaint: Lump on rt arm, chest pain Time Seen by Provider: 11/24/23 13:06 Source: patient Mode of arrival: ambulatory Limitations: no limitations - History of Present Illness Initial Comments: 28-year-old female presents to the emergency department reporting right arm pain, chest pain and tachycardia. Patient does have history of tachycardia. She has had some pain in her right arm. No recent instrumentation. No history of DVT. No history of PE. She takes metoprolol twice daily. States she has been compliant with her medications. Does have a history of thyroid disorder. No other alleviating, precipitating or modifying factors - Related Data Home Medications Medication Instructions Recorded Confirmed Albuterol Nebulized [Ventolin 2.5 mg INHALATION RT-QID PRN 05/18/22 11/24/23 Nebulized] Cholecalciferol [Vitamin D3 (25 25 mcg PO DAILY 04/25/23 11/24/23 Mcg = 1000 Iu)] Omeprazole 40 mg PO DAILY@1600 05/13/23 11/24/23 Metoprolol Succinate [Metoprolol 25 mg PO BID 06/05/23 11/24/23 Succinate ER] [place] 700 mg PO DAILY 11/24/23 11/24/23 Brexpiprazole [Rexulti] 0.5 mg PO DAILY 11/24/23 11/24/23 Cyclobenzaprine [Flexeril] 10 mg PO Q8H PRN 11/24/23 11/24/23 Desvenlafaxine Succinate [Pristiq 50 mg PO DAILY 11/24/23 11/24/23 ER] Famotidine [Pepcid] 20 mg PO DAILY PRN 11/24/23 11/24/23 Nortriptyline [Pamelor] 50 mg PO DAILY 11/24/23 11/24/23 diazePAM [Valium] 5 mg PO BID 11/25/23 11/25/23 Previous Rx's Medication Instructions Recorded Montelukast [Singulair] 10 mg PO DAILY #20 tab 08/03/23 EPINEPHrine (Auto Inject) [Epipen] 0.3 mg IM ONCE PRN #1 each 11/17/23 diphenhydrAMINE [Benadryl] 25 mg PO TID PRN #21 capsule 11/17/23 Levothyroxine Sodium 150 mcg PO DAILY #30 tab 11/22/23 oxyCODONE-APAP 10-325MG [Percocet 1 tab PO Q4HR PRN 3 Days #18 tab 11/22/23 10-325 mg] Aspirin 81 mg PO DAILY #30 tab 11/25/23 Ibuprofen [Motrin] 800 mg PO Q8H #21 tab 11/25/23 Allergies Allergy/AdvReac Type Severity Reaction Status Date / Time amoxicillin Allergy Rash/Hives Verified 11/24/23 16:03 banana Allergy Anaphylaxis Verified 11/24/23 16:03 nickel Allergy Rash/Hives Verified 11/24/23 16:03 sulfamethoxazole Allergy Rash/Hives Verified 11/24/23 16:03 [From ] trimethoprim [From ] Allergy Rash/Hives Verified 11/24/23 16:03 corn AdvReac Diarrhea Verified 11/24/23 16:03 Review of Systems ROS Statement: Those systems with pertinent positive or pertinent negative responses have been documented in the HPI. ROS Other: All systems not noted in ROS Statement are negative. 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, History of Any Multi-Drug Resistant Organisms: None Reported Past Surgical History: Appendectomy, Section, Cholecystectomy Additional Past Surgical History / Comment(s): thyroidectomy 09/2017, Laparoscopic exam w/ cautery endometriosis 2012 Past Anesthesia/Blood Transfusion Reactions: No Reported Reaction Past Psychological History: Anxiety, Depression Smoking Status: Never smoker Past Alcohol Use History: Occasional, Rare Past Drug Use History: None Reported - Past Family History Mother Family Medical History: Asthma Father Family Medical History: Coronary Artery Disease (CAD), CVA/TIA, Diabetes Mellitus Brother(s) Family Medical History: Asthma General Exam Limitations: no limitations General appearance: alert, in no apparent distress Head exam: Present: atraumatic, normocephalic, normal inspection Eye exam: Present: normal appearance, PERRL, EOMI. Absent: scleral icterus, conjunctival injection, periorbital swelling ENT exam: Present: normal exam, mucous membranes moist Neck exam: Present: normal inspection. Absent: tenderness, meningismus, lymphadenopathy Respiratory exam: Present: normal lung sounds bilaterally. Absent: respiratory distress, wheezes, rales, rhonchi, stridor Cardiovascular Exam: Present: normal rhythm, tachycardia, normal heart sounds. Absent: systolic murmur, diastolic murmur, rubs, gallop, clicks GI/Abdominal exam: Present: soft, normal bowel sounds. Absent: distended, tenderness, guarding, rebound, rigid Extremities exam: Present: normal inspection, full ROM, normal capillary refill. Absent: tenderness, pedal edema, joint swelling, calf tenderness Back exam: Present: normal inspection Neurological exam: Present: alert, oriented X3, CN II-XII intact Psychiatric exam: Present: normal affect, normal mood Skin exam: Present: warm, dry, intact, normal color. Absent: rash Course Vital Signs 11/24/23 11/24/23 11/24/23 12:52 13:18 14:00 Temperature 97.8 F Pulse Rate 150 H 133 H 125 H Respiratory 20 20 18 Rate Blood Pressure 94/49 127/103 O2 Sat by Pulse 96 96 Oximetry 11/24/23 11/24/23 11/24/23 15:00 16:00 16:05 Temperature Pulse Rate 125 H 125 H 114 H Respiratory 18 18 18 Rate Blood Pressure 115/93 115/93 118/77 O2 Sat by Pulse 96 97 96 Oximetry Chest Pain MDM - MDM Was pt. sent in by a medical professional or institution (KESHA Heredia, SERVER PROGRAMMER, urgent care, hospital, or retirement...) When possible be specific @ -No Did you speak to anyone other than the patient for history (EMS, parent, family, police, friend...)? What history was obtained from this source @ -No Did you review nursing and triage notes (agree or disagree)? Why? @ -I reviewed and agree with nursing and triage notes Were old charts reviewed (outside hosp., previous admission, EMS record, old EKG, old radiological studies, urgent care reports/EKG's, retirement records)? Report findings @ -No old charts were reviewed Differential Diagnosis (chest pain, altered mental status, abdominal pain women, abdominal pain men, vaginal bleeding, weakness, fever, dyspnea, syncope, headache, dizziness, GI bleed, back pain, seizure, CVA, palpatations, mental health, musculoskeletal)? @ -Differential Chest Pain: Stable Angina, Unstable Angina, STEMI, NSTEMI Aortic Dissection, Pneumothorax, Musculoskeletal, Esophageal Spasm GERD, Cholecystitis, Pancreatitis, Zoster, this is not meant to be an all-inclusive list. EKG interpreted by me (3pts min.). @ -Yes and demonstrates sinus tach with a rate of 131. NM interval 122. QRS 90. QTc of 378. No acute ST segment elevation or depression X-rays interpreted by me (1pt min.). @ -Yes and demonstrates no acute process CT interpreted by me (1pt min.). @ -None done U/S interpreted by me (1pt. min.). @ -None done What testing was considered but not performed or refused? (CT, X-rays, U/S, labs)? Why? @ -None What meds were considered but not given or refused? Why? @ -None Did you discuss the management of the patient with other professionals (professionals i.e. , PA, SERVER PROGRAMMER, lab, RT, psych nurse, director of social media marketing, machinist/machine builder, teacher, chief accounting officer, family preservation caseworker)? Give summary @ -Spoke with Dr. Mayer who will admit the patient Was smoking cessation discussed for >3mins.? @ -No Was critical care preformed (if so, how long)? @ -No Were there social determinants of health that impacted care today? How? (Homelessness, low income, unemployed, alcoholism, drug addiction, transportation, low edu. Level, literacy, decrease access to med. care, [place] [facility], rehab)? @ -No Was there de-escalation of care discussed even if they declined (Discuss DNR or withdrawal of care, Hospice)? DNR status @ -No What co-morbidities impacted this encounter? (DM, HTN, Smoking, COPD, CAD, Cancer, CVA, ARF, Chemo, Hep., AIDS, mental health diagnosis, sleep apnea, morbid obesity)? @ -Sinus tachycardia, subclinical hypothyroidism Was patient admitted / discharged? Hospital course, mention meds given and route, prescriptions, significant lab abnormalities, going to OR and other pertinent info. @ -Upon arrival patient seen and evaluated in trauma 3. Thorough history and physical exam was performed. Patient placed on continuous pulse ox and cardiac monitoring. Twelve-lead EKG is obtained. Patient does make several requests for pain medications. She was given a one-time dose of narcotics while laboratory studies and ultrasound were performed. Ultrasound does demonstrate a superficial thrombophlebitis. Patient's heart rate remains elevated. She was given a dose of Lopressor. Patient continues to complain of chest pain. I did offer to hospitalize the patient for her tachycardia. Patient requests more op iate pain medications however I did notify her that I do not have a diagnosis to warrant such pain medications and that NSAIDs are the first treatment line for a superficial thrombophlebitis. Patient was agreeable to the admission. Spoke with Dr. Mayer for admission Undiagnosed new problem with uncertain prognosis? @ -No Drug Therapy requiring intensive monitoring for toxicity (Heparin, Nitro, Insu lizbet, Cardizem)? @ -No Were any procedures done? @ -No Diagnosis/symptom? @ -Acute right arm pain, acute superficial thrombophlebitis, acute chest pain, sinus tachycardia Acute, or Chronic, or Acute on Chronic? @ -Acute Uncomplicated (without systemic symptoms) or Complicated (systemic symptoms)? @ -Complicated Side effects of treatment? @ -No Exacerbation, Progression, or Severe Exacerbation? @ -No Poses a threat to life or bodily function? How? (Chest pain, [place], [place], pneumonia, PE, COPD, DKA, ARF, appy, cholecystitis, CVA, Diverticulitis, Homicidal, Suicidal, threat to staff... and all critical care pts) @ -No Disposition Clinical Impression: Superficial thrombophlebitis, Chest pain, Tachycardia, Opiate dependence Disposition: ADMITTED IP TO THIS [facility] Condition: Stable Is patient prescribed a controlled substance at d/c from ED?: No Time of Disposition: 15:56 Decision to Admit Reason: Admit from EC Decision Date: 11/24/23 Decision Time: 15:56
[2023-11-24] MEDS: SODIUM CHLORIDE 0.9% 1,000 ML IV STA (13:58)
[2023-11-24] MEDS: HYDROmorphone 1 MG/ML 1 ML SYRINGE IVP STA (13:59)
[2023-11-24 14:14] LABS: Basophils % (A) 0 %; Eosinophils # (A) 0.2 k/uL (0-0.7); Eosinophils % (A) 2 %; HCT 41.7 % (34.0-46.0); HGB 14.3 gm/dL (11.4-16.0); Lymphocytes # (A) 3.5 k/uL (1.0-4.8); Lymphocytes % (A) 45 %; MCHC 34.3 g/dL (31.0-37.0); MCV 93.2 fL (80.0-100.0); Mean Platelet Volume 7.6; Monocytes # (A) 0.4 k/uL (0-1.0); Monocytes % (A) 5 %; Neutrophils # (A) 3.7 k/uL (1.3-7.7); Neutrophils % (A) 46 %; Platelet Count 357 k/uL (150-450); RBC 4.47 m/uL (3.80-5.40); RDW 12.5 % (11.5-15.5); WBC 7.9 k/uL (3.8-10.6)
[2023-11-24 14:23] LABS: ALT 49 U/L (4-34); AST 40 U/L (14-36); African American GFR (CKD) >90 (>60 ml/min/1.73 sqM); Albumin 4.9 g/dL (3.5-5.0); Alkaline Phosphatase 92 U/L (38-126); Anion Gap 10 mmol/L; Blood Urea Nitrogen 18 mg/dL (7-17); Calcium 9.2 mg/dL (8.4-10.2); Carbon Dioxide 19 mmol/L (22-30); Chloride 107 mmol/L (98-107); Glucose 135 mg/dL (74-99); Lipase 86 U/L (23-300); Non-African American GFR(CKD) >90 (>60 ml/min/1.73 sqM); Potassium 4.4 mmol/L (3.5-5.1); Sodium 136 mmol/L (137-145); Total Bilirubin 0.4 mg/dL (0.2-1.3); Total Protein 7.8 g/dL (6.3-8.2)
--- NOTE | 2023-11-24 14:36 | XR ---
EXAMINATION TYPE: XR chest 2V DATE OF EXAM: 11/24/2023 COMPARISON: 08/03/2023 TECHNIQUE: PA and lateral views submitted. HISTORY: Chest pain FINDINGS: Then limited by reduced inspiration. Linear subsegmental changes at both lung bases suggestive of sca rring or atelectasis. The lungs are clear and there is no pneumothorax, pleural effusion, or focal p neumonia. Heart size normal and no overt failure. Osseous structures intact. IMPRESSION: 1. Limited inspiration with no definite acute process. Suspect scarring or atelectasis at the lung ba ses favored over pneumonia. [facility], , 11/24/2023 2:33 PM
--- NOTE | 2023-11-24 14:47 | US ---
EXAMINATION TYPE: US venous doppler duplex UE RT DATE OF EXAM: 11/24/2023 COMPARISON: NONE CLINICAL INDICATION: Female, 28 years old with history of arm lump; redness and swelling on inner arm near elbow, no injury SIDE PERFORMED: Right Right Arm: Negative for DVT superficial thrombus seen within the basilic vein IMPRESSION: 1. Negative exam for DVT 2. Positive exam for SVT within the basilic vein. [facility], , 11/24/2023 2:45 PM
[2023-11-24] MEDS ORDERED: ACETAMINOPHEN TAB 325 MG TAB PO PRN (16:01)
[2023-11-24] MEDS ORDERED: NALOXONE 0.4 MG/ML 1 ML VIAL IV PRN (16:01)
[2023-11-24] MEDS ORDERED: IBUPROFEN 400 MG TAB PO PRN (16:01)
[2023-11-24] MEDS: METOPROLOL TARTRATE 5 MG/5 ML VIAL IVP STA (16:34)
[2023-11-24] MEDS ORDERED: ALPRAZolam 1 MG TAB PO PRN (17:59)
[2023-11-24] MEDS ORDERED: oxyCODONE-APAP 10-325MG 1 EACH TAB PO PRN (17:59)
[2023-11-24] MEDS ORDERED: ALBUTEROL NEBULIZED 2.5 MG/3 ML INHALATION PRN (17:59)
[2023-11-24] MEDS: KETOROLAC 15 MG/ML 1 ML VIAL IVP SCH (18:11)
--- NOTE | 2023-11-24 18:18 | P.HPIM ---
History of Present Illness H&P Date: 11/24/23 28 year old F with PMH of MVP, Depression and Anxiety, Tachycardia, Asthma, hypothyroidism presents to the ED for right arm and chest pain. She reports pain ongoing for the 1.5-2 weeks. Started right about the medial elbow now extending into the shoulder and chest. Pain is burning in nature. She reports chest discomfort described as pressure like which also started at the same time as her elbow pain. She denies any shortness of breath or lightheadedness. No history of DVT or PE. No trauma to the RUE. In the ED she underwent extensive evaluation. BP 94/49, HR 150, T 97.8F, RR 20, 96% on RA. CBC, Coag panel, CMP significant for Na 136, bicarb 19, BUN 18, glucose 135, AST 40, ALT 49. TSH 28.2. Lipase 86. Troponin < 0.012. EKG sinus tachycardia. CXR negative. Venous doppler consistent with superficial basilic vein thrombosis. Patient is admitted for ACS rule out and Cardiology evaluation. General: non toxic, no distress, appears at stated age Derm: warm, dry Head: atraumatic, normocephalic, symmetric Eyes: EOMI, no lid lag, anicteric sclera Cardiovascular: S1S2 reg, no murmur Lungs: Clear to auscultation bilaterally, no rhonchi, no rales , no accessory muscle use Ext: no gross muscle atrophy, no edema, no contractures, RUE medial erythema and swelling above the elbow Neuro: no focal neuro deficits Psych: Alert, oriented, appropriate affect Based on my assessment of this patient, this patient meets a high complexity level of care. Superficial basilic vein thrombosis: Warm compresses. Toradol 15 mg IV Q6H. Dilaudid 1 mg IV Q6H PRN severe pain. Will discuss with radiology regarding size and location. Chest pain: Wells criteria low risk for PE. Initial Troponin negative. EKG no ST-T wave changes. Trend Trop/EKG to rule out ACS. Cardiology consulted. Sinus tachycardia: Restart Metoprolol 25 mg PO BID. Telemetry monitoring. Elevated TSH: Obtain FT4. Continue Synthroid 150 mcg PO QD. Depression and Anxiety: Xanax 1 mg PO BID PRN. Brexpiprazole 0.5 mg PO QD. Desvenlafaxine 50 mg PO QD. Asthma: Stable. Albuterol neb PRN for SOB/wheezing. CODE STATUS: FULL CODE. DVT Prophylaxis: Early ambulation. GI Prophylaxis: Designated medical POA if patient is not able to make medical decisions for themselves: I have reviewed the following school plant consultant notes: ER note. I have reviewed the results of the following tests: As above. I have ordered the following tests: As above. I have discussed the care of this patient with the following independent historian: RN. I have independently interpreted the following test below: EKG. I have discussed the management of this patient with the following physician: Dr. Vallejo. 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 cement sack breaker, History of Any Multi-Drug Resistant Organisms: None Reported Past Surgical History: Appendectomy, Section, Cholecystectomy Additional Past Surgical History / Comment(s): thyroidectomy 09/2017, Laparoscopic exam w/ cautery endometriosis 2012 Past Anesthesia/Blood Transfusion Reactions: No Reported Reaction Past Psychological History: Anxiety, Depression Additional Psychological History / Comment(s): . Smoking Status: Never smoker Past Alcohol Use History: Occasional, Rare Past Drug Use History: None Reported - Past Family History Mother Family Medical History: Asthma Father Family Medical History: Coronary Artery Disease (CAD), CVA/TIA, Diabetes Kasey litus Brother(s) Family Medical History: Asthma Medications and Allergies Home Medications Medication Instructions Recorded Confirmed Type Albuterol Nebulized [Ventolin 2.5 mg INHALATION RT-QID PRN 05/18/22 11/24/23 Hi story Nebulized] ALPRAZolam [Xanax] 1 mg PO BID PRN 03/10/23 11/24/23 History Cholecalciferol [Vitamin D3 (25 25 mcg PO DAILY 04/25/23 11/24/23 History Mcg = 1000 Iu)] Omeprazole 40 mg PO DAILY@1600 05/13/23 11/24/23 History Metoprolol Succinate [Metoprolol 25 mg PO BID 06/05/23 11/24/23 History Succinate ER] Montelukast [Singulair] 10 mg PO DAILY #20 tab 08/03/23 11/24/23 Rx EPINEPHrine (Auto Inject) [Epipen] 0.3 mg IM ONCE PRN #1 each 11/17/23 11/24/23 Rx diphenhydrAMINE [Benadryl] 25 mg PO TID PRN #21 capsule 11/17/23 11/24/23 Rx Levothyroxine Sodium 150 mcg PO DAILY #30 tab 11/22/23 11/24/23 Rx oxyCODONE-APAP 10-325MG [Percocet 1 tab PO Q4HR PRN 3 Days #18 tab 11/22/23 11/24/23 Rx 10-325 mg] Ashwagandha 700 mg PO DAILY 11/24/23 11/24/23 History Brexpiprazole [Rexulti] 0.5 mg PO DAILY 11/24/23 11/24/23 History Cyclobenzaprine [Flexeril] 10 mg PO Q8H PRN 11/24/23 11/24/23 History Desvenlafaxine Succinate [Pristiq 50 mg PO DAILY 11/24/23 11/24/23 History ER] Famotidine [Pepcid] 20 mg PO DAILY PRN 11/24/23 11/24/23 History Nortriptyline [Pamelor] 50 mg PO DAILY 11/24/23 11/24/23 History Allergies Allergy/AdvReac Type Severity Reaction Status Date / Time amoxicillin Allergy Rash/Hives Verified 11/24/23 16:03 banana Allergy Anaphylaxis Verified 11/24/23 16:03 nickel Allergy Rash/Hives Verified 11/24/23 16:03 sulfamethoxazole Allergy Rash/Hives Verified 11/24/23 16:03 [From ] trimethoprim [From ] Allergy Rash/Hives Verified 11/24/23 16:03 corn AdvReac Diarrhea Verified 11/24/23 16:03 Physical Exam Vitals: Vital Signs Temp Pulse Pulse Resp BP BP Pulse Ox 11/24/23 17:26 96 16 138/94 95 11/24/23 16:05 114 H 18 118/77 96 11/24/23 16:00 125 H 18 115/93 97 11/24/23 15:00 125 H 18 115/93 96 11/24/23 14:00 125 H 18 127/103 11/24/23 13:18 133 H 20 96 11/24/23 12:52 97.8 F 150 H 20 94/49 96 Intake and Output 11/24/23 11/24/23 11/24/23 06:59 14:59 22:59 Other: Weight 75.296 kg 75.296 kg Results CBC & Chem 7: 11/24/23 14:01 11/24/23 14:01 Labs: Abnormal Lab Results - Last 24 Hours (Table) 11/24/23 11/24/23 Range/Units 14:01 16:53 Sodium 136 L (137-145) mmol/L Carbon Dioxide 19 L (22-30) mmol/L BUN 18 H (7-17) mg/dL Glucose 135 H (74-99) mg/dL AST 40 H (14-36) U/L ALT 49 H (4-34) U/L TSH 28.200 H (0.465-4.680) mIU/L Thrombosis Risk Factor Assmnt - Choose All That Apply Any of the Below Risk Factors Present?: No
[2023-11-24] MEDS: HYDROmorphone 1 MG/ML 1 ML SYRINGE IVP PRN (18:52)
[2023-11-24 19:39] LABS: Appearance,Urine Clear (Clear); Bacteria,Urine Rare /hpf; Bilirubin,Urine Negative (Negative); Blood,Urine Trace (Negative); Color,Urine Light Yellow; Glucose,Urine (UA) Negative (Negative); Hyaline Casts,Urine 1 /lpf (0-2); Ketones,Urine Negative (Negative); Leukocyte Esterase,Urine Negative (Negative); Mucus,Urine Occasional /hpf; Nitrite,Urine Negative (Negative); PH, Urine 5.5 (5.0-8.0); Protein,Urine Negative (Negative); RBC,Urine 1 /hpf (0-5); Specific Gravity,Urine 1.029 (1.001-1.035); Squamous Epithelial Cell,Urine 1 /hpf (0-4); Urobilinogen,Urine <2.0 mg/dL (<2.0); WBC,Urine <1 /hpf (0-5)
[2023-11-24 20:04] LABS: Amphetamine Screen,Urine Not Detected (NotDetected); Barbiturate Screen,Urine Not Detected (NotDetected); Benzodiazepines Screen,Urine Detected (NotDetected); Cocaine Screen,Urine Not Detected (NotDetected); Methadone Screen, Urine Not Detected (NotDetected); Opiate Screen,Urine Detected (NotDetected); Phencyclidine Screen,Urine Not Detected (NotDetected); Tricyclic Antidepressant,Urine Detected (NotDetected); Urn Cannabinoid Scrn Not Detected (NotDetected)
[2023-11-24 20:05] LABS: Oxycodone Screen, Urine Detected (NotDetected)
[2023-11-24] MEDS: MORPHINE SULFATE 4 MG/ML SYRINGE IVP PRN (22:25)
[2023-11-24] MEDS: IBUPROFEN 400 MG TAB PO STA (22:26)
[2023-11-24] MEDS: METOPROLOL SUCCINATE (ER) 25 MG TAB.ER.24H PO SCH (22:27)
[2023-11-25] MEDS: diazePAM 5 MG TAB PO PRN (01:56)
[2023-11-25] MEDS: LEVOTHYROXINE 75 MCG TAB PO SCH (06:28)
[2023-11-25] MEDS: Brexpiprazole [Rexulti] 0.5 MG Tablet PO SCH (07:50)
[2023-11-25] MEDS: NORTRIPTYLINE 25 MG CAP PO SCH (08:10)
[2023-11-25] MEDS: MONTELUKAST 10 MG TAB PO SCH (08:11)
[2023-11-25] MEDS: CHOLECALCIFEROL 25 MCG (1000 IU) TABLET PO SCH (08:11)
[2023-11-25] MEDS: DESVENLAFAXINE SUCCINATE 50 MG TAB.ER.24H PO SCH (08:11)
[2023-11-25 08:22] VITALS: RESP 16
[2023-11-25 08:29] LABS: Basophils % (A) 1 %; Eosinophils # (A) 0.2 k/uL (0-0.7); Eosinophils % (A) 3 %; HCT 38.2 % (34.0-46.0); HGB 12.9 gm/dL (11.4-16.0); Lymphocytes # (A) 2.8 k/uL (1.0-4.8); Lymphocytes % (A) 47 %; MCH 32.4 pg (25.0-35.0); MCHC 33.8 g/dL (31.0-37.0); MCV 95.8 fL (80.0-100.0); Mean Platelet Volume 6.7; Monocytes # (A) 0.4 k/uL (0-1.0); Monocytes % (A) 6 %; Neutrophils # (A) 2.4 k/uL (1.3-7.7); Neutrophils % (A) 40 %; Platelet Count 265 k/uL (150-450); RBC 3.98 m/uL (3.80-5.40); RDW 12.1 % (11.5-15.5)
[2023-11-25 08:49] LABS: African American GFR (CKD) >90 (>60 ml/min/1.73 sqM); Anion Gap 6 mmol/L; Blood Urea Nitrogen 14 mg/dL (7-17); Calcium 8.4 mg/dL (8.4-10.2); Carbon Dioxide 22 mmol/L (22-30); Chloride 108 mmol/L (98-107); Glucose 90 mg/dL (74-99); Non-African American GFR(CKD) >90 (>60 ml/min/1.73 sqM); Potassium 4.2 mmol/L (3.5-5.1); Sodium 136 mmol/L (137-145)
--- NOTE | 2023-11-25 09:32 | P.CRDCN ---
History of Present Illness History of present illness: HISTORY OF PRESENT ILLNESS: This is a 28-year-old female with a past medical history significant for hypothyroidism, inappropriate sinus tachycardia, and mitral valve regurgitation. Patient follows in the office with Dr. Chapman. We have been asked to see the patient in consultation for chest pain. Patient examined at the bedside. 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 She states yesterday while she was at work she began talking to one of the physician assistants about her right arm. She states that she has been having discomfort in her arm for the past week. She states it has become more tender and red. She also reports that she has been having chest pain for the past week. She states the pain is intermittent. She has the pain with rest and with exertion but states it appears that she has her symptoms more with exertion. She states the pain is mostly on the left side of her chest above her left breast and sometimes goes into her left shoulder. She states yesterday when she was sitting in the emergency room she felt very anxious and began to have shortness of breath and diaphoresis. At the time of examination, she denies any pain in her chest. She does report discomfort in her right arm. She states that she is scheduled for an outpatient stress test in November. Patient denies any previous history of CAD. She is a non-smoker. DIAGNOSTICS: - EKG reveals sinus tachycardia with no signs of acute ischemia. Baseline artifact. - Chest xray limited inspiration with no definite acute process. Suspect scarring or atelectasis at lung bases favored over pneumonia. - Right upper extremity Doppler positive for superficial thrombus within the basilic vein. No DVT. - Laboratory data: WBC 6.0. Hemoglobin 12.9. Platelet count 265. Sodium 136. Potassium 4.2. BUN 14. Creatinine 0.67. Magnesium 2.0. AST 40. ALT 49. Troponin negative x 1. TSH 28.2. Free T41.20. - Current home cardiac medications include metoprolol succinate 25 mg twice a day - Most recent echocardiogram obtained in August 2023 at the cardiology office revealed ejection fraction 55%, mild mitral regurgitation, mild tricuspid regurgitation - Cardiac catheterization history: Patient denies REVIEW OF SYSTEMS: At the time of my exam: CONSTITUTIONAL: Denies fever or chills. HEENT: Denies blurred vision, vision changes, or eye pain. Denies hemoptysis CARDIOVASCULAR: Denies chest pain. Denies orthopnea. Denies PND. Denies palpitations RESPIRATORY: Denies shortness of breath. GASTROINTESTINAL: Denies abdominal pain. Denies nausea or vomiting. HEMATOLOGIC: Denies bleeding disorders. GENITOURINARY: Denies any blood in urine. SKIN: Denies pruitis. Denies rash. PHYSICAL EXAM: VITAL SIGNS: Reviewed. GENERAL: Well-developed in no acute distress. HEENT: Head is normocephalic. Pupils are equal, round. Sclerae anicteric. Mucous membranes of the mouth are moist. Neck supple. No JVD or thyromegaly LUNGS: Respirations even and unlabored. Lungs essentially clear to auscultation bilaterally. HEART: Regular rate and rhythm. S1 and S2 heard. ABDOMEN: Soft. Nondistended. Nontender. EXTREMITIES: Normal range of motion. No clubbing or cyanosis. Peripheral pulses intact. Right upper extremity with mild erythema and edema. Tenderness with palpation. NEUROLOGIC: Awake and alert. Oriented x 3. ASSESSMENT: Right arm pain Superficial venous thrombosis of right basilic vein Chest pain, troponin negative x 1, EKG without ischemic changes History of inappropriate sinus tachycardia Mild mitral and tricuspid regurgitation Hypothyroidism with elevated TSH at 28.2 PLAN: No evidence of acute coronary event. Awaiting results of second troponin. 2D echo has been ordered by primary medicine. Await results. Continue current dose of metoprolol. Continue telemetry monitoring Patient is scheduled for outpatient stress testing in November Patient is currently stable from a cardiac perspective Further recommendations pending patient course Nurse practitioner note has been reviewed by physician. Signing provider agrees with the documented findings, assessment, and plan of care documented by SUPERVISOR SIGN [employer]OP as a scribe. 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 Smoking Status: Never smoker Past Alcohol Use History: Occasional, Rare Past Drug Use History: None Reported - Past Family History Mother Family Medical History: Asthma Father Family Medical History: Coronary Artery Disease (CAD), CVA/TIA, Diabetes Mellitus Brother(s) Family Medical History: Asthma Medications and Allergies Home Medications Medication Instructions Recorded Confirmed Type Albuterol Nebulized [Ventolin 2.5 mg INHALATION RT-QID PRN 05/18/22 11/24/23 History Nebulized] Cholecalciferol [Vitamin D3 (25 25 mcg PO DAILY 04/25/23 11/24/23 History Mcg = 1000 Iu)] Omeprazole 40 mg PO DAILY@1600 05/13/23 11/24/23 History Metoprolol Succinate [Metoprolol 25 mg PO BID 06/05/23 11/24/23 History Succinate ER] Montelukast [Singulair] 10 mg PO DAILY #20 tab 08/03/23 11/24/23 Rx EPINEPHrine (Auto Inject) [Epipen] 0.3 mg IM ONCE PRN #1 each 11/17/23 11/24/23 Rx diphenhydrAMINE [Benadryl] 25 mg PO TID PRN #21 capsule 11/17/23 11/24/23 Rx Levothyroxine Sodium 150 mcg PO DAILY #30 tab 11/22/23 11/24/23 Rx oxyCODONE-APAP 10-325MG [Percocet 1 tab PO Q4HR PRN 3 Days #18 tab 11/22/23 11/24/23 Rx 10-325 mg] Ashwagandha 700 mg PO DAILY 11/24/23 11/24/23 History Brexpiprazole [Rexulti] 0.5 mg PO DAILY 11/24/23 11/24/23 History Cyclobenzaprine [Flexeril] 10 mg PO Q8H PRN 11/24/23 11/24/23 History Desvenlafaxine Succinate [Pristiq 50 mg PO DAILY 11/24/23 11/24/23 History ER] Famotidine [Pepcid] 20 mg PO DAILY PRN 11/24/23 11/24/23 History Nortriptyline [Pamelor] 50 mg PO DAILY 11/24/23 11/24/23 History diazePAM [Valium] 5 mg PO BID 11/25/23 11/25/23 History Allergies Allergy/AdvReac Type Severity Reaction Status Date / Time amoxicillin Allergy Rash/Hives Verified 11/24/23 16:03 banana Allergy Anaphylaxis Verified 11/24/23 16:03 nickel Allergy Rash/Hives Verified 11/24/23 16:03 sulfamethoxazole Allergy Rash/Hives Verified 11/24/23 16:03 [From ] trimethoprim [From ] Allergy Rash/Hives Verified 11/24/23 16:03 corn AdvReac Diarrhea Verified 11/24/23 16:03 Physical Exam Vitals: Vital Signs Temp Pulse Pulse Resp BP BP Pulse Ox 11/25/23 08:00 97.7 F 89 16 110/78 94 L 11/25/23 04:00 93 18 118/86 93 L 11/25/23 02:00 110 H 18 11/25/23 00:00 110 H 18 122/90 93 L 11/24/23 20:00 98 F 106 H 18 128/89 95 11/24/23 17:26 96 16 138/94 95 11/24/23 16:05 114 H 18 118/77 96 11/24/23 16:00 125 H 18 115/93 97 11/24/23 15:00 125 H 18 115/93 96 11/24/23 14:00 125 H 18 127/103 11/24/23 13:18 133 H 20 96 11/24/23 12:52 97.8 F 150 H 20 94/49 96 Intake and Output 11/24/23 11/25/23 11/25/23 22:59 06:59 14:59 Intake Total 120 Output Total 0 Balance 120 Intake: Oral 120 Output: Gastric Drainage 0 Urine 0 Urine/Stool Mix 0 Emesis 0 Oral Regurgitation 0 Other: # Voids 0 # Bowel Movements 0 Weight 75.296 kg 77.8 kg Results 11/25/23 07:22 11/25/23 07:22 Cardiac Enzymes 11/24/23 11/24/23 Range/Units 14:01 14:01 AST 40 H (14-36) U/L Troponin I <0.012 (0.000-0.034) ng/mL Coagulation 11/24/23 Range/Units 14:01 APTT 26.5 (22.0-30.0) sec CBC 11/24/23 Range/Units 14:01 WBC 7.9 (3.8-10.6) k/uL RBC 4.47 (3.80-5.40) m/uL Hgb 14.3 (11.4-16.0) gm/dL Hct 41.7 (34.0-46.0) % Plt Count 357 (150-450) k/uL Comprehensive Metabolic Panel 11/24/23 Range/Units 14:01 Sodium 136 L (137-145) mmol/L Potassium 4.4 (3.5-5.1) mmol/L Chloride 107 (98-107) mmol/L Carbon Dioxide 19 L (22-30) mmol/L BUN 18 H (7-17) mg/dL Creatinine 0.78 (0.52-1.04) mg/dL Glucose 135 H (74-99) mg/dL Calcium 9.2 (8.4-10.2) mg/dL AST 40 H (14-36) U/L ALT 49 H (4-34) U/L Alkaline Phosphatase 92 (38-126) U/L Total Protein 7.8 (6.3-8.2) g/dL Albumin 4.9 (3.5-5.0) g/dL Current Medications Generic Name Dose Route Start Last Admin Trade Name Freq PRN Reason Stop Dose Admin Acetaminophen 650 mg 11/24/23 16:01 Acetaminophen Tab 325 Mg Tab PO Q6HR PRN Mild Pain or Fever > 100.5 Albuterol Sulfate 2.5 mg 11/24/23 17:59 Albuterol Nebulized 2.5 Mg/3 Ml INHALATION RT-QID PRN Shortness Of Breath Cholecalciferol 25 mcg 11/25/23 09:00 11/25/23 08:11 Cholecalciferol 25 Mcg (1000 Iu) Tablet PO 25 mcg DAILY [place] Administration Desvenlafaxine Succinate 50 mg 11/25/23 09:00 11/25/23 08:11 Desvenlafaxine Succinate 50 Mg Tab.Er.24h PO 50 mg DAILY [place] Administration Diazepam 5 mg 11/25/23 01:14 11/25/23 01:56 Diazepam 5 Mg Tab PO 5 mg BID PRN Administration Anxiety Hydromorphone HCl 1 mg 11/24/23 18:00 11/25/23 01:58 Hydromorphone 1 Mg/Ml 1 Ml Syringe IVP 1 mg Q6HR PRN Administration Pain Ketorolac Tromethamine 15 mg 11/24/23 18:00 11/25/23 05:41 Ketorolac 15 Mg/Ml 1 Ml Vial IVP 11/29/23 18:00 15 mg Q6HR [place] Administration Levothyroxine Sodium 150 mcg 11/25/23 06:30 11/25/23 06:28 Levothyroxine 75 Mcg Tab PO 150 mcg DAILY@0630 [place] Administration Metoprolol Succinate 25 mg 11/24/23 21:00 11/25/23 08:11 Metoprolol Succinate (Er) 25 Mg Tab.Er.24h PO 25 mg BID [place] Administration Montelukast Sodium 10 mg 11/25/23 09:00 11/25/23 08:11 Montelukast 10 Mg Tab PO 10 mg DAILY [place] Administration Morphine Sulfate 4 mg 11/24/23 21:45 11/25/23 05:40 Morphine Sulfate 4 Mg/Ml Syringe IVP 4 mg Q4HR PRN Administration Pain Naloxone HCl 0.2 mg 11/24/23 16:01 Naloxone 0.4 Mg/Ml 1 Ml Vial IV Q2M PRN Opioid Reversal Brexpiprazole [ 0.5 mg 11/25/23 09:00 11/25/23 07:50 Rexulti] 0.5 Mg PO Not Given Tablet DAILY [place] Nortriptyline HCl 50 mg 11/25/23 09:00 11/25/23 08:10 Nortriptyline 25 Mg Cap PO 50 mg DAILY [place] Administration Pantoprazole Sodium 40 mg 11/25/23 16:00 Pantoprazole 40 Mg Tablet PO DAILY@1600 [place] Intake and Output 11/24/23 11/25/23 11/25/23 22:59 06:59 14:59 Intake Total 120 Output Total 0 Balance 120 Intake: Oral 120 Output: Gastric Drainage 0 Urine 0 Urine/Stool Mix 0 Emesis 0 Oral Regurgitation 0 Other: # Voids 0 # Bowel Movements 0 Weight 75.296 kg 77.8 kg 11/24/23 14:01 11/24/23 14:01
--- NOTE | 2023-11-25 10:59 | P.PN ---
Subjective Progress Note Date: 11/25/23 28 year old F with PMH of MVP, Depression and Anxiety, Tachycardia, Asthma, hypothyroidism presents to the ED for right arm and chest pain. She reports pain ongoing for the 1.5-2 weeks. Started right about the medial elbow now extending into the shoulder and chest. Pain is burning in nature. She reports chest discomfort described as pressure like which also started at the same time as her elbow pain. She denies any shortness of breath or lightheadedness. No history of DVT or PE. No trauma to the RUE. In the ED she underwent extensive evaluation. BP 94/49, HR 150, T 97.8F, RR 20, 96% on RA. CBC, Coag panel, CMP significant for Na 136, bicarb 19, BUN 18, glucose 135, AST 40, ALT 49. TSH 28.2. Lipase 86. Troponin < 0.012. EKG sinus tachycardia. CXR negative. Venous doppler consistent with superficial basilic vein thrombosis. Patient is admitted for ACS rule out and Cardiology evaluation. 11/24 Patient was seen and examined. Reports continue RUE pain. Repeat troponin negative. EKG shows sinus rhythm. CBC, BMP significant for Na 136, Cl 108. Cardiology recommends no further workup. Echo taken and pending. Discussed with radiologist manager consumer insights, unable to tell regarding proximity to deep vein or size given US images. Vascular surgery consulted for further guidance. General: non toxic, no distress, appears at stated age Derm: warm, dry Head: atraumatic, normocephalic, symmetric Eyes: EOMI, no lid lag, anicteric sclera Cardiovascular: good distal perfusion in all 4 extremities Lungs: breathing comfortably, no accessory muscle use Ext: no gross muscle atrophy, no edema, no contractures, RUE medial erythema and swelling above the elbow Neuro: no focal neuro deficits Psych: Alert, oriented, appropriate affect Based on my assessment of this patient, this patient meets a moderate complexity level of care. Superficial basilic vein thrombosis: Warm compresses. Toradol 15 mg IV Q6H. Dila udid 1 mg IV Q6H PRN severe pain. Vascular surgery consult. Chest pain: Wells criteria low risk for PE. Initial Troponin < 0.012 x 2. EKG no ST-T wave changes. ACS ruled out. Cardiology consulted, plans for outpatient stress test. Sinus tachycardia: Metoprolol 25 mg PO BID. Telemetry monitoring. Subclinical hypothyroidism: Continue Synthroid 150 mcg PO QD. Needs further outpatient titration. Depression and Anxiety: Xanax 1 mg PO BID PRN. Brexpiprazole 0.5 mg PO QD. Desvenlafaxine 50 mg PO QD. Asthma: Stable. Albuterol neb PRN for SOB/wheezing. Hopeful plans for discharge home if cleared by Vascular Surgery. CODE STATUS: FULL CODE. DVT Prophylaxis: Early ambulation. GI Prophylaxis: Designated medical POA if patient is not able to make medical decisions for themselves: I have reviewed the following neuropsychology medical consultant notes: Cardiology I have reviewed the results of the following tests: Troponin, EKG, CBC, BMP. I have ordered the following tests: Echo. I have discussed the care of this patient with the following independent historian: OLIMPIA. I have independently interpreted the following test below: I have discussed the management of this patient with the following physician: Objective - Vital Signs Vital signs: Vital Signs Temp 98 F 11/24/23 20:00 Pulse 93 11/25/23 04:00 Resp 18 11/25/23 04:00 BP 118/86 11/25/23 04:00 Pulse Ox 93 L 11/25/23 04:00 FiO2 Intake & Output 11/24/23 11/25/23 11/25/23 18:59 06:59 18:59 Intake Total 120 Output Total 0 Balance 120 Weight 75.296 kg 77.8 kg Intake: Oral 120 Output: Gastric Drainage 0 Urine 0 Urine/Stool Mix 0 Emesis 0 Oral Regurgitation 0 Other: # Voids 0 # Bowel Movements 0 - Labs CBC & Chem 7: 11/25/23 07:22 11/25/23 07:22 Labs: Abnormal Lab Results - Last 24 Hours (Table) 11/24/23 11/24/23 11/24/23 Range/Units 14:01 16:53 19:15 Sodium 136 L (137-145) mmol/L Carbon Dioxide 19 L (22-30) mmol/L BUN 18 H (7-17) mg/dL Glucose 135 H (74-99) mg/dL AST 40 H (14-36) U/L ALT 49 H (4-34) U/L TSH 28.200 H (0.465-4.680) mIU/L Urine Blood Trace H (Negative) Urine Bacteria Rare H (None) /hpf Urine Mucus Occasional H (None) /hpf Urine Opiates Screen (NotDetected) Ur Oxycodone Screen (NotDetected) U Tricyclic Antidepress (NotDetected) U Benzodiazepines Scrn (NotDetected) 11/24/23 Range/Units 19:15 Sodium (137-145) mmol/L Carbon Dioxide (22-30) mmol/L BUN (7-17) mg/dL Glucose (74-99) mg/dL AST (14-36) U/L ALT (4-34) U/L TSH (0.465-4.680) mIU/L Urine Blood (Negative) Urine Bacteria (None) /hpf Urine Mucus (None) /hpf Urine Opiates Screen Detected H (NotDetected) Ur Oxycodone Screen Detected H (NotDetected) U Tricyclic Antidepress Detected H (NotDetected) U Benzodiazepines Scrn Detected H (NotDetected)
[2023-11-25 12:50] VITALS: BP 129/92; PULSE 101; TEMP 98
--- NOTE | 2023-11-25 14:00 | CA ---
Transthoracic Echo Report Name: Ally Wesley Age: 28 Gender: F : 1995 Exam Date: 11/25/2023 08:50 Exam Location: [facility] Ht (in): 61 Wt (lb): 171 Ordering Physician: Lance Miles MD Attending/Referring Phys: Construction Mgr Bibiana Saucedo RDCS Procedure CPT: Indications: tachy, chest pain Cardiac Hx: Technical Quality: Good Contrast 1: Total Dose (mL): Contrast 2: Total Dose (mL): MEASUREMENTS (Male / Female) Normal Values 2D ECHO LV Diastolic Diameter PLAX 3.9 cm 4.2 - 5.9 / 3.9 - 5.3 cm LV Systolic Diameter PLAX 3.0 cm IVS Diastolic Thickness 0.8 cm 0.6 - 1.0 / 0.6 - 0.9 cm LVPW Diastolic Thickness 0.9 cm 0.6 - 1.0 / 0.6 - 0.9 cm LV Relative Wall Thickness 0.4 RV Internal Dim ED PLAX 2.6 cm LA Systolic Diameter LX 2.8 cm 3.0 - 4.0 / 2.7 - 3.8 cm LA Volume 42.4 cm??? 18 - 58 / 22 - 52 cm??? LA Volume Index 22.8 cm???/m??? 16 - 28 cm???/m??? M-MODE Aortic Root Diameter MM 2.7 cm AV Cusp Separation MM 2.0 cm DOPPLER AV Peak Velocity 131.0 cm/s AV Peak Gradient 6.9 mmHg MV Area PHT 4.4 cm??? Mitral E Point Velocity 95.5 cm/s Mitral A Point Velocity 67.4 cm/s Mitral E to A Ratio 1.4 MV Deceleration Time 170.9 ms TR Peak Velocity 231.1 cm/s TR Peak Gradient 21.4 mmHg Right Ventricular Systolic Press 26.4 mmHg FINDINGS Left Ventricle Left ventricular ejection fraction is estimated at 55-60 %. Left ventricular cavity size normal. Left ventricular wall thickness normal. Normal left ventricular wall motion. Right Ventricle Normal right ventricular size and function. Right ventricular systolic pressure within normal limits. Right Atrium Normal right atrial size. No right atrial thrombus or mass seen. Left Atrium Normal left atrial size. No left atrial thrombus or mass present. Mitral Valve Structurally normal mitral valve. Trace mitral regurgitation. Aortic Valve Trileaflet aortic valve. No aortic valve stenosis or regurgitation. Tricuspid Valve Structurally normal tricuspid valve. Trace tricuspid regurgitation. Pulmonic Valve Structurally normal pulmonic valve. No pulmonic regurgitation. Pericardium No pericardial or pleural effusion. Aorta Normal size aortic root and proximal ascending aorta. CONCLUSIONS 1. Normal left ventricular size and systolic function 2. Trace mitral and tricuspid regurgitation Previewed by: Dr. Serena Cox MD (Electronically Signed) Final Date: 25 November 2023 13:59
--- NOTE | 2023-11-25 14:19 | P.GSCN ---
History of Present Illness Consult date: 11/25/23 Reason for Consult: Superficial venous thrombosis right upper extremity History of present illness: 28-year-old female with history of recent hospitalizations and family history of blood clots presents to the hospital secondary to pain in the right upper extremity. She was worked up in the emergency department and was noted to have superficial venous thrombosis involving the right basilic vein. She does have a history of mitral valve regurgitation and previously seen by Dr. Chapman for cardiology. She states yesterday she was having some increased pain in her right arm and denies any trauma to the area. She previously was on control and thought that this might increase her risk for blood clots and has since stopped those medications roughly 1 year ago. She noted that her arm was starting to hurt last week and has become more red and tender since yesterday. She denies any fevers, chills, chest pain, shortness of breath. She states that her arm is feeling slightly better with ice pack to the area. 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 Smoking Status: Never smoker Past Alcohol Use History: Occasional, Rare Past Drug Use History: None Reported - Past Family History Mother Family Medical History: Asthma Father Family Medical History: Coronary Artery Disease (CAD), CVA/TIA, Diabetes Mellitus Brother(s) Family Medical History: Asthma Medications and Allergies Home Medications Medication Instructions Recorded Confirmed Type Albuterol Nebulized [Ventolin 2.5 mg INHALATION RT-QID PRN 05/18/22 11/24/23 History Nebulized] Cholecalciferol [Vitamin D3 (25 25 mcg PO DAILY 04/25/23 11/24/23 History Mcg = 1000 Iu)] Omeprazole 40 mg PO DAILY@1600 05/13/23 11/24/23 History Metoprolol Succinate [Metoprolol 25 mg PO BID 06/05/23 11/24/23 History Succinate ER] Montelukast [Singulair] 10 mg PO DAILY #20 tab 08/03/23 11/24/23 Rx EPINEPHrine (Auto Inject) [Epipen] 0.3 mg IM ONCE PRN #1 each 11/17/23 11/24/23 Rx diphenhydrAMINE [Benadryl] 25 mg PO TID PRN #21 capsule 11/17/23 11/24/23 Rx Levothyroxine Sodium 150 mcg PO DAILY #30 tab 11/22/23 11/24/23 Rx oxyCODONE-APAP 10-325MG [Percocet 1 tab PO Q4HR PRN 3 Days #18 tab 11/22/23 11/24/23 Rx 10-325 mg] Ashwagandha 700 mg PO DAILY 11/24/23 11/24/23 History Brexpiprazole [Rexulti] 0.5 mg PO DAILY 11/24/23 11/24/23 History Cyclobenzaprine [Flexeril] 10 mg PO Q8H PRN 11/24/23 11/24/23 History Desvenlafaxine Succinate [Pristiq 50 mg PO DAILY 11/24/23 11/24/23 History ER] Famotidine [Pepcid] 20 mg PO DAILY PRN 11/24/23 11/24/23 History Nortriptyline [Pamelor] 50 mg PO DAILY 11/24/23 11/24/23 History diazePAM [Valium] 5 mg PO BID 11/25/23 11/25/23 History Allergies Allergy/AdvReac Type Severity Reaction Status Date / Time amoxicillin Allergy Rash/Hives Verified 11/24/23 16:03 banana Allergy Anaphylaxis Verified 11/24/23 16:03 nickel Allergy Rash/Hives Verified 11/24/23 16:03 sulfamethoxazole Allergy Rash/Hives Verified 11/24/23 16:03 [From ] trimethoprim [From ] Allergy Rash/Hives Verified 11/24/23 16:03 corn AdvReac Diarrhea Verified 11/24/23 16:03 Surgical - Exam Vital Signs Temp Pulse Resp BP Pulse Ox 97.8 F 150 H 20 94/49 96 11/24/23 12:52 11/24/23 12:52 11/24/23 12:52 11/24/23 12:52 11/24/23 12:52 Patient Seen Date: 11/25/23 Patient Seen Time: 14:00 - General well developed, well nourished, no distress - Eyes PERRL, normal ocular movement - ENT normal pinna, normal nares - Neck no masses, no bruits - Respiratory normal expansion, normal respiratory effort - Cardiovascular Rhythm: regular - Integumentary no rash, no growths - Neurologic normal coordination, normal sensation - Psychiatric oriented to time, oriented to person, oriented to place, speech is normal Palpable DP and PT pulses bilaterally Palpable radial pulses bilaterally Right upper extremity tenderness to palpation the medial aspect of her upper arm with some mild erythema Results Upper extremity ultrasound demonstrates positive SVT involving the basilic vein on the right no evidence of DVT - Labs 11/25/23 07:22 11/25/23 07:22 Abnormal Lab Results - Last 24 Hours (Table) 11/24/23 11/24/23 11/24/23 Range/Units 14:01 16:53 19:15 Sodium 136 L (137-145) mmol/L Chloride (98-107) mmol/L Carbon Dioxide 19 L (22-30) mmol/L BUN 18 H (7-17) mg/dL Glucose 135 H (74-99) mg/dL AST 40 H (14-36) U/L ALT 49 H (4-34) U/L TSH 28.200 H (0.465-4.680) mIU/L Urine Blood Trace H (Negative) Urine Bacteria Rare H (None) /hpf Urine Mucus Occasional H (None) /hpf Urine Opiates Screen (NotDetected) Ur Oxycodone Screen (NotDetected) U Tricyclic Antidepress (NotDetected) U Benzodiazepines Scrn (NotDetected) 11/24/23 11/25/23 Range/Units 19:15 07:22 Sodium 136 L (137-145) mmol/L Chloride 108 H (98-107) mmol/L Carbon Dioxide (22-30) mmol/L BUN (7-17) mg/dL Glucose (74-99) mg/dL AST (14-36) U/L ALT (4-34) U/L TSH (0.465-4.680) mIU/L Urine Blood (Negative) Urine Bacteria (None) /hpf Urine Mucus (None) /hpf Urine Opiates Screen Detected H (NotDetected) Ur Oxycodone Screen Detected H (NotDetected) U Tricyclic Antidepress Detected H (NotDetected) U Benzodiazepines Scrn Detected H (NotDetected) Diabetes panel 11/24/23 11/25/23 Range/Units 14:01 07:22 Sodium 136 L 136 L (137-145) mmol/L Potassium 4.4 4.2 (3.5-5.1) mmol/L Chloride 107 108 H (98-107) mmol/L Carbon Dioxide 19 L 22 (22-30) mmol/L BUN 18 H 14 (7-17) mg/dL Creatinine 0.78 0.67 (0.52-1.04) mg/dL Glucose 135 H 90 (74-99) mg/dL Calcium 9.2 8.4 (8.4-10.2) mg/dL AST 40 H (14-36) U/L ALT 49 H (4-34) U/L Alkaline Phosphatase 92 (38-126) U/L Total Protein 7.8 (6.3-8.2) g/dL Albumin 4.9 (3.5-5.0) g/dL Thyroid panel 11/24/23 Range/Units 16:53 TSH 28.200 H (0.465-4.680) mIU/L Calcium panel 11/24/23 11/25/23 Range/Units 14:01 07:22 Calcium 9.2 8.4 (8.4-10.2) mg/dL Albumin 4.9 (3.5-5.0) g/dL Pituitary panel 11/24/23 11/24/23 11/25/23 Range/Units 14:01 16:53 07:22 Sodium 136 L 136 L (137-145) mmol/L Potassium 4.4 4.2 (3.5-5.1) mmol/L Chloride 107 108 H (98-107) mmol/L Carbon Dioxide 19 L 22 (22-30) mmol/L BUN 18 H 14 (7-17) mg/dL Creatinine 0.78 0.67 (0.52-1.04) mg/dL Glucose 135 H 90 (74-99) mg/dL Calcium 9.2 8.4 (8.4-10.2) mg/dL TSH 28.200 H (0.465-4.680) mIU/L Adrenal panel 11/24/23 11/25/23 Range/Units 14:01 07:22 Sodium 136 L 136 L (137-145) mmol/L Potassium 4.4 4.2 (3.5-5.1) mmol/L Chloride 107 108 H (98-107) mmol/L Carbon Dioxide 19 L 22 (22-30) mmol/L BUN 18 H 14 (7-17) mg/dL Creatinine 0.78 0.67 (0.52-1.04) mg/dL Glucose 135 H 90 (74-99) mg/dL Calcium 9.2 8.4 (8.4-10.2) mg/dL Total Bilirubin 0.4 (0.2-1.3) mg/dL AST 40 H (14-36) U/L ALT 49 H (4-34) U/L Alkaline Phosphatase 92 (38-126) U/L Total Protein 7.8 (6.3-8.2) g/dL Albumin 4.9 (3.5-5.0) g/dL Assessment and Plan Assessment: Acute right upper extremity superficial venous thrombosis involving the basilic vein Plan: No surgical intervention required at this time. Recommend warm compresses to the area, aspirin, Motrin for 1 week [id number]. Follow-up outpatient in the office for repeat ultrasound of the upper extremity in 1 week's time. Okay for discharge from vascular standpoint. Thank you for the consultation.
--- NOTE | 2023-11-25 14:48 | P.DS ---
Providers Date of admission: 11/24/23 16:02 Expected date of discharge: 11/25/23 Attending physician: Lance Miles MD Consults: 11/24/23 16:01 Consult Physician Urgent Consulting Provider: [facility] Consult Reason/Comments: tachycardia Do you want consulting provider notified?: Yes 11/25/23 08:19 Consult Physician Routine Consulting Provider: Paris Martinez Consult Reason/Comments: Superficial vein thrombosis basilic vein need for AC? Do you want consulting provider notified?: Yes Primary care physician: [facility] Course: 28 year old F with PMH of MVP, Depression and Anxiety, Tachycardia, Asthma, hypothyroidism presents to the ED for right arm and chest pain. She reports pain ongoing for the 1.5-2 weeks. Started right about the medial elbow now extending into the shoulder and chest. Pain is burning in nature. She reports chest discomfort described as pressure like which also started at the same time as her elbow pain. She denies any shortness of breath or lightheadedness. No history of DVT or PE. No trauma to the RUE. In the ED she underwent extensive evaluation. BP 94/49, HR 150, T 97.8F, RR 20, 96% on RA. CBC, Coag panel, CMP significant for Na 136, bicarb 19, BUN 18, glucose 135, AST 40, ALT 49. TSH 28.2. Lipase 86. Troponin < 0.012. EKG sinus tachycardia. CXR negative. Venous doppler consistent with superficial basilic vein thrombosis. Patient is admitted for ACS rule out and Cardiology evaluation. 11/24 Patient was seen and examined. Reports continue RUE pain. Repeat troponin negative. EKG shows sinus rhythm. CBC, BMP significant for Na 136, Cl 108. Cardiology recommends no further workup. Echo taken and pending. Discussed with radiologist business control manager, unable to tell regarding proximity to deep vein or size given US images. Vascular surgery consulted recommended ice packs, ASA, Motrin around the clock and outpatient follow up for repeat US. Plans for discharge home today with Cardiology and Vascular follow up. General: non toxic, no distress, appears at stated age Derm: warm, dry Head: atraumatic, normocephalic, symmetric Eyes: EOMI, no lid lag, anicteric sclera Cardiovascular: good distal perfusion in all 4 extremities Lungs: breathing comfortably, no accessory muscle use Ext: no gross muscle atrophy, no edema, no contractures, RUE medial erythema and swelling above the elbow Neuro: no focal neuro deficits Psych: Alert, oriented, appropriate affect Discharge Diagnosis: Superficial basilic vein thrombosis Chest pain Sinus tachycardia Subclinical hypothyroidism Depression and Anxiety Asthma This complex discharge took 35 minutes to complete. Patient Condition at Discharge: Stable Plan - Discharge Summary Discharge Rx Participant: No New Discharge Prescriptions: New Aspirin 81 mg PO DAILY #30 tab Ibuprofen [Motrin] 800 mg PO Q8H #21 tab Continue Albuterol Nebulized [Ventolin Nebulized] 2.5 mg INHALATION RT-QID PRN PRN Reason: Shortness Of Breath Omeprazole 40 mg PO DAILY@1600 Metoprolol Succinate [Metoprolol Succinate ER] 25 mg PO BID Montelukast [Singulair] 10 mg PO DAILY #20 tab Levothyroxine Sodium 150 mcg PO DAILY #30 tab Nortriptyline [Pamelor] 50 mg PO DAILY Desvenlafaxine Succinate [Pristiq ER] 50 mg PO DAILY Cyclobenzaprine [Flexeril] 10 mg PO Q8H PRN PRN Reason: Muscle Spasm Brexpiprazole [Rexulti] 0.5 mg PO DAILY Cholecalciferol [Vitamin D3 (25 Mcg = 1000 Iu)] 25 mcg PO DAILY diphenhydrAMINE [Benadryl] 25 mg PO TID PRN #21 capsule PRN Reason: Allergic Reaction EPINEPHrine (Auto Inject) [Epipen] 0.3 mg IM ONCE PRN #1 each PRN Reason: Anaphylaxis oxyCODONE-APAP 10-325MG [Percocet 10-325 mg] 1 tab PO Q4HR PRN 3 Days #18 tab PRN Reason: Pain Famotidine [Pepcid] 20 mg PO DAILY PRN PRN Reason: Gi Upset Ashwagandha 700 mg PO DAILY diazePAM [Valium] 5 mg PO BID Discharge Medication List Albuterol Nebulized [Ventolin Nebulized] 2.5 mg INHALATION RT-QID PRN 05/18/22 [History] Cholecalciferol [Vitamin D3 (25 Mcg = 1000 Iu)] 25 mcg PO DAILY 04/25/23 [History] Omeprazole 40 mg PO DAILY@1600 05/13/23 [History] Metoprolol Succinate [Metoprolol Succinate ER] 25 mg PO BID 06/05/23 [History] Montelukast [Singulair] 10 mg PO DAILY #20 tab 08/03/23 [Rx] EPINEPHrine (Auto Inject) [Epipen] 0.3 mg IM ONCE PRN #1 each 11/17/23 [Rx] diphenhydrAMINE [Benadryl] 25 mg PO TID PRN #21 capsule 11/17/23 [Rx] Levothyroxine Sodium 150 mcg PO DAILY #30 tab 11/22/23 [Rx] oxyCODONE-APAP 10-325MG [Percocet 10-325 mg] 1 tab PO Q4HR PRN 3 Days #18 tab 11/22/23 [Rx] Ashwagandha 700 mg PO DAILY 11/24/23 [History] Brexpiprazole [Rexulti] 0.5 mg PO DAILY 11/24/23 [History] Cyclobenzaprine [Flexeril] 10 mg PO Q8H PRN 11/24/23 [History] Desvenlafaxine Succinate [Pristiq ER] 50 mg PO DAILY 11/24/23 [History] Famotidine [Pepcid] 20 mg PO DAILY PRN 11/24/23 [History] Nortriptyline [Pamelor] 50 mg PO DAILY 11/24/23 [History] Aspirin 81 mg PO DAILY #30 tab 11/25/23 [Rx] Ibuprofen [Motrin] 800 mg PO Q8H #21 tab 11/25/23 [Rx] diazePAM [Valium] 5 mg PO BID 11/25/23 [History] Follow up Appointment(s)/Referral(s): Imtiaz Chapman DO [STAFF PHYSICIAN] - 1 Week Long Gutierrez DO [STAFF PHYSICIAN] - 1 Week Tiffanie Graham MD [Primary Care Provider] - 1-2 days Patient Instructions/Handouts: Superficial Thrombophlebitis (DC) Discharge Disposition: HOME SELF-CARE
[2023-11-25] MEDS ORDERED: PANTOPRAZOLE 40 MG TABLET PO SCH (16:00)
[2023-12-01 15:07] LABS: Glucose,Whole Blood 133 mg/dL (70-110)
== END 2023-11-25 15:33 | disposition home or self-care (01) ==
LOC: EC 12:51 → 3SCARD 16:02
PROVIDERS: ADMIT Family Medicine; ATTEND Family Medicine
CPT/HCPCS: 36415; 71046; 80048; 80053; 80306; 81001; 81025; 83690; 83735; 84439; 84443; 84484; 85025; 85730; 93005; 93306; 94760; 96361; 96374; 96375; 96376; 99285

== ENCOUNTER 2023-11-30 16:16 | Emergency (ER) | payer MEDICAID, OTHER ==
[2023-11-30] MEDS: MORPHINE SULFATE 4 MG/ML SYRINGE IVP STA ×2 (16:53→18:08)
[2023-11-30] MEDS: KETOROLAC 15 MG/ML 1 ML VIAL IVP STA ×2 (16:53→18:07)
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
--- NOTE | 2023-11-30 17:48 | XR ---
EXAMINATION TYPE: XR hand complete LT, XR wrist complete LT DATE OF EXAM: 11/30/2023 CLINICAL HISTORY: pain TECHNIQUE: Frontal, lateral and oblique images of the left hand are obtained. 4 views of the left wr ist are also submitted. COMPARISON: None. FINDINGS: There is no acute fracture/dislocation evident. The joint spaces appear within normal limi ts. The overlying soft tissue appears unremarkable. IMPRESSION: There is no acute fracture or dislocation. ICD 10 NO FRACTURE, INITIAL EVALUATION [facility], , 11/30/2023 5:45 PM
--- NOTE | 2023-11-30 17:48 | XR ---
EXAMINATION TYPE: XR shoulder complete LT DATE OF EXAM: 11/30/2023 CLINICAL HISTORY: pain COMPARISON: NONE TECHNIQUE: Three views of the left shoulder are obtained. FINDINGS: There is no acute fracture/dislocation evident. The acromioclavicular and glenohumeral damon int spaces appear within normal limits. The visualized ribs are intact and unremarkable. IMPRESSION: 1. There is no acute fracture or dislocation. ICD 10 NO FRACTURE, INITIAL EVALUATION [facility], , 11/30/2023 5:46 PM
--- NOTE | 2023-11-30 17:49 | XR ---
EXAMINATION TYPE: XR chest 2V DATE OF EXAM: 11/30/2023 COMPARISON: 11/24/2023 HISTORY: Chest pain TECHNIQUE: Frontal and lateral views of the chest are obtained. FINDINGS: There is no focal air space opacity. No evidence for pneumothorax. No pleural effusion. The cardiac silhouette size is within normal limits. The osseous structures are grossly intact. IMPRESSION: 1. No acute cardiopulmonary process. [facility], , 11/30/2023 5:46 PM
--- NOTE | 2023-11-30 17:50 | XR ---
EXAMINATION TYPE: XR KUB DATE OF EXAM: 11/30/2023 COMPARISON: NONE HISTORY: Pain TECHNIQUE: Single supine KUB image of the abdomen is obtained FINDINGS: Small bowel demonstrates no evidence for dilatation or air fluid levels. Gas and fecal material is seen in non-distended colon. No convincing evidence for pneumoperitoneum. No unusual calcifications. Postoperative changes of cholecystectomy and appendectomy with a couple o f free floating clips. The lung bases are clear. The osseous structures are intact. IMPRESSION: 1. Overall nonobstructive bowel gas pattern. [facility], , 11/30/2023 5:47 PM
[2023-11-30] MEDS: methocarbamoL 750 MG TAB PO STA (18:26)
[2023-11-30 18:29] VITALS: RESP 18
[2023-11-30] MEDS: METOPROLOL SUCCINATE (ER) 25 MG TAB.ER.24H PO STA (18:42)
[2023-11-30] MEDS: HYDROmorphone 0.5 MG/0.5 ML SYRINGE IVP STA (18:46)
[2023-11-30 19:08] VITALS: BP 138/96; PULSE 139; TEMP 97.9
== END 2023-11-30 19:08 | disposition home or self-care (01) ==
LOC: EC 16:16
CPT/HCPCS: 71046; 74018; 96374; 96375; 96376; 99284

== ENCOUNTER → 2023-11-30 | Outpatient (CLI) | payer MEDICAID, OTHER ==
[2023-11-30 10:52] LABS: T4, Free (Free Thyroxine) 1.46 ng/dL (0.78-2.19)
== END | disposition home or self-care (01) ==
LOC: LABMAIN 08:13
PROVIDERS: ATTEND Nurse Practitioner Family
DX: E03.9 Hypothyroidism, unspecified (principal)
CPT/HCPCS: 84439; 84443

== ENCOUNTER 2023-12-13 14:15 | Observation (INO) | payer MEDICAID, OTHER ==
[2023-12-13] MEDS: SODIUM CHLORIDE 0.9% 1,000 ML IV STA (14:31)
[2023-12-13] MEDS: MORPHINE SULFATE 4 MG/ML SYRINGE IVP STA (14:31)
[2023-12-13 14:41] LABS: Basophils % (A) 1 %; Eosinophils # (A) 0.2 k/uL (0-0.7); Eosinophils % (A) 3 %; HCT 41.7 % (34.0-46.0); HGB 14.5 gm/dL (11.4-16.0); Lymphocytes # (A) 2.5 k/uL (1.0-4.8); Lymphocytes % (A) 35 %; MCH 32.8 pg (25.0-35.0); MCHC 34.8 g/dL (31.0-37.0); MCV 94.1 fL (80.0-100.0); Mean Platelet Volume 6.6; Monocytes # (A) 0.3 k/uL (0-1.0); Monocytes % (A) 4 %; Neutrophils # (A) 3.7 k/uL (1.3-7.7); Neutrophils % (A) 53 %; Platelet Count 389 k/uL (150-450); RBC 4.43 m/uL (3.80-5.40); RDW 12.7 % (11.5-15.5)
[2023-12-13 14:54] LABS: ALT 57 U/L (4-34); AST 42 U/L (14-36); African American GFR (CKD) >90 (>60 ml/min/1.73 sqM); Albumin 4.8 g/dL (3.5-5.0); Alkaline Phosphatase 79 U/L (38-126); Anion Gap 9 mmol/L; Blood Urea Nitrogen 12 mg/dL (7-17); Calcium 9.5 mg/dL (8.4-10.2); Carbon Dioxide 26 mmol/L (22-30); Chloride 105 mmol/L (98-107); Glucose 105 mg/dL (74-99); Magnesium 2.1 mg/dL (1.6-2.3); Non-African American GFR(CKD) >90 (>60 ml/min/1.73 sqM); Potassium 4.1 mmol/L (3.5-5.1); Sodium 140 mmol/L (137-145); Total Bilirubin 0.4 mg/dL (0.2-1.3); Total Protein 7.9 g/dL (6.3-8.2)
--- NOTE | 2023-12-13 14:59 | ED ---
General Adult HPI - General Source: patient, RN notes reviewed, old records reviewed Mode of arrival: ambulatory Limitations: no limitations <Jr Peterson - Last Filed: 12/13/23 14:52> <Joy Vallejo - Last Filed: 12/13/23 18:23> - General Chief complaint: Syncope Stated complaint: syncope Time Seen by Provider: 12/13/23 14:18 - History of Present Illness Initial comments: Patient is a 28-year-old female presents emergency department following a syncopal episode. Has a known superficial venous thrombosis in the right upper extremity. 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 Was getting an outpatient ultrasound to evaluate for DVT in the left lower extremity as well as to monitor the right upper extremity. It is believed she had a syncopal episode that was unwitnessed as she stood up after the ultrasound and then was found on the ground. Thinks she hit her head. Is complaining of some neck pain in addition to hitting her head. Thinks she may have lost consciousness. Is not on blood thinners other than aspirin. Denies any chest pain. States she is having a hard time breathing. Saturations are normal. Denies fevers or chills or cough. Past medical history includes mitral valve prolapse, asthma, thyroid disease. Presents for further evaluation at this time. (Jr Peterson) - Related Data Home Medications Medication Instructions Recorded Confirmed Albuterol Nebulized [Ventolin 2.5 mg INHALATION RT-QID PRN 05/18/22 12/13/23 Nebulized] Cholecalciferol [Vitamin D3 (25 25 mcg PO DAILY 04/25/23 12/13/23 Mcg = 1000 Iu)] Omeprazole 40 mg PO DAILY@1600 05/13/23 12/13/23 Metoprolol Succinate [Metoprolol 25 mg PO BID 06/05/23 12/13/23 Succinate ER] Ashwagandha 700 mg PO DAILY 11/24/23 12/13/23 Desvenlafaxine Succinate [Pristiq 50 mg PO DAILY 11/24/23 12/13/23 ER] Famotidine [Pepcid] 20 mg PO DAILY PRN 11/24/23 12/13/23 Nortriptyline [Pamelor] 50 mg PO DAILY 11/24/23 12/13/23 diazePAM [Valium] 5 mg PO BID 11/25/23 12/13/23 Brexpiprazole [Rexulti] 1 mg PO DAILY 12/13/23 12/13/23 Cyclobenzaprine [Flexeril] 5 mg PO TID PRN 12/13/23 12/13/23 Previous Rx's Medication Instructions Recorded Montelukast [Singulair] 10 mg PO DAILY #20 tab 08/03/23 EPINEPHrine (Auto Inject) [Epipen] 0.3 mg IM ONCE PRN #1 each 11/17/23 diphenhydrAMINE [Benadryl] 25 mg PO TID PRN #21 capsule 11/17/23 Levothyroxine Sodium 150 mcg PO DAILY #30 tab 11/22/23 Aspirin 81 mg PO DAILY #30 tab 11/25/23 Ibuprofen [Motrin] 800 mg PO Q8H #21 tab 11/25/23 Allergies Allergy/AdvReac Type Severity Reaction Status Date / Time amoxicillin Allergy Rash/Hives Verified 12/13/23 15:40 banana Allergy Anaphylaxis Verified 12/13/23 15:40 nickel Allergy Rash/Hives Verified 12/13/23 15:40 sulfamethoxazole Allergy Rash/Hives Verified 12/13/23 15:40 [From ] trimethoprim [From ] Allergy Rash/Hives Verified 12/13/23 15:40 corn AdvReac Diarrhea Verified 12/13/23 15:40 Review of Systems ROS Other: All systems not noted in ROS Statement are negative. <Jr Peterson - Last Filed: 12/13/23 14:52> ROS Other: All systems not noted in ROS Statement are negative. <Joy Vallejo - Last Filed: 12/13/23 18:23> ROS Statement: Those systems with pertinent positive or pertinent negative responses have been documented in the HPI. Review of Systems: CONST: Denies fever EYES: Denies blurry vision ENT: Denies nasal congestion C/V: Denies Chest pain RESP: Endorses shortness of breath GI: Denies abdominal pain : Denies dysuria SKIN: Denies rash. MSK: Denies joint pain. 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, History of Any Multi-Drug Resistant Organisms: None Reported Past Surgical History: Appendectomy, Section, Cholecystectomy Additional Past Surgical History / Comment(s): thyroidectomy 09/2017, Laparoscopic exam w/ cautery endometriosis 2012 Past Anesthesia/Blood Transfusion Reactions: No Reported Reaction Past Psychological History: Anxiety, Depression Smoking Status: Never smoker Past Alcohol Use History: Occasional, Rare Past Drug Use History: None Reported - Past Family History Mother Family Medical History: Asthma Father Family Medical History: Coronary Artery Disease (CAD), CVA/TIA, Diabetes Mellitus Brother(s) Family Medical History: Asthma <Jr Peterson - Last Filed: 12/13/23 14:52> General Exam Limitations: no limitations <Jr Peterson - Last Filed: 12/13/23 14:52> - General Exam Comments Initial Comments: General: Appears in no acute distress. HEAD: Normal with no signs of head trauma. Negative Quarles sign. Negative raccoon eyes. EYES: PERRLA, EOMI, conjunctiva normal, no discharge. Pupils are 3 mm and equal bilaterally. ENT: Hearing grossly intact, normal oropharynx. RESPIRATORY: Clear breath sounds bilaterally. No wheezes, rales, or rhonchi. No increased work of breathing. No hypoxia. On nasal cannula oxygen for comfort. C/V: Tachycardic with regular rhythm. S1 and S2 auscultated, no edema, peripheral pulses 2+ and intact throughout ABD: Abd is soft, nontender, nondistended EXT: Normal range of motion, no obvious deformity. Pelvis is stable. Midline cervical and thoracic spine tenderness to palpation. No step-offs or deformitie s appreciated. SKIN: No rashes or lesions observed on exposed skin. NEURO: Alert and orient x 4. GCS of 15. (Jr Peterson) Course Vital Signs 12/13/23 12/13/23 12/13/23 14:16 15:36 16:11 Temperature 97.9 F Pulse Rate 135 H 122 H 109 H Respiratory 18 20 20 Rate Blood Pressure 125/95 110/70 122/89 O2 Sat by Pulse 99 98 100 Oximetry 12/13/23 16:46 Temperature Pulse Rate 129 H Respiratory 20 Rate Blood Pressure 138/92 O2 Sat by Pulse 99 Oximetry Medical Decision Making - Lab Data Result diagrams: 12/13/23 14:32 - EKG Data -: EKG Interpreted by Me <Jr Peterson - Last Filed: 12/13/23 14:52> - Lab Data Result diagrams: 12/13/23 14:32 12/13/23 14:32 <Joy Vallejo - Last Filed: 12/13/23 18:23> - Medical Decision Making Was pt. sent in by a medical professional or institution (, PA, SOLE ASSESSOR, urgent care, hospital, or retirement...) When possible be specific @ -No Did you speak to anyone other than the patient for history (EMS, parent, family, police, friend...)? What history was obtained from this source @ -No Did you review nursing and triage notes (agree or disagree)? Why? @ -I reviewed and agree with nursing and triage notes Were old charts reviewed (outside hosp., previous admission, EMS record, old EKG, old radiological studies, urgent care reports/EKG's, retirement records)? Report findings @ -Reviewed EKG from October 2023. No significant change other than the tachycardia. Reviewed outpatient ultrasound imaging from earlier today which shows an SVT in the basilic vein of the right upper extremity. No evidence of DVT in the right upper extremity. Patient has no evidence of DVT of the left lower extremity. Differential Diagnosis (chest pain, altered mental status, abdominal pain women, abdominal pain men, vaginal bleeding, weakness, fever, dyspnea, syncope, headache, dizziness, GI bleed, back pain, seizure, CVA, palpatations, mental health, musculoskeletal)? @ -Differential Syncope: Valvular disease, hypertrophic cardiomyopathy, pulmonary embolism, tamponade, tachycardia, bradycardia, NJ, hypovolemia, hemorrhage, dissection, anemia, intracranial hemorrhage, seizure, hypoglycemia, carbon monoxide poisoning, this is not meant to be an all-inclusive list. EKG interpreted by me (3pts min.). @ -As above X-rays interpreted by me (1pt min.). @ -Pending CT interpreted by me (1pt min.). @ -Pending U/S interpreted by me (1pt. min.). @ -None done What testing was considered but not performed or refused? (CT, X-rays, U/S, labs)? Why? @ -None What meds were considered but not given or refused? Why? @ -None Did you discuss the management of the patient with other professionals (professionals i.e. Dr., PA, SOLE ASSESSOR, lab, RT, psych nurse, professor of social work, sde, teacher, preventive medicine officer, caser)? Give summary @ -No Was smoking cessation discussed for >3mins.? @ -No Was critical care preformed (if so, how long)? @ -No Were there social determinants of health that impacted care today? How? (Homelessness, low income, unemployed, alcoholism, drug addiction, transportation, low edu. Level, literacy, decrease access to med. care, [facility], rehab)? @ -No Was there de-escalation of care discussed even if they declined (Discuss DNR or withdrawal of care, Hospice)? DNR status @ -No What co-morbidities impacted this encounter? (DM, HTN, Smoking, COPD, CAD, Cancer, CVA, ARF, Chemo, Hep., AIDS, mental health diagnosis, sleep apnea, morbid obesity)? @ -None Was patient admitted / discharged? Hospital course, mention meds given and route, prescriptions, significant lab abnormalities, going to OR and other pertinent info. @ -Patient presents as an CHAYITO from the ultrasound center for syncopal episode. Was being worked up for possible DVT in the right upper extremity left lower extremity. Has a known SVT of the right upper extremity. Patient was given a 1 L fluid bolus as well as pain medications. Cervical collar placed. We will obtain CT brain, C-spine, thoracic spine as well as a CT PE and chest and pelvis x-rays. Patient was in agreement this plan. Vital signs remarkable for sinus tachycardia. EKG shows sinus tachycardia. Labs and imaging are pending. Patient will be signed out to [facility] emergency department physician, Dr. Vallejo for further care. Undiagnosed new problem with uncertain prognosis? @ -No Drug Therapy requiring intensive monitoring for toxicity (Heparin, Nitro, Insulin, Cardizem)? @ -No Were any procedures done? @ -No (Jr Peterson) Was patient admitted / discharged? Hospital course, mention meds given and route, prescriptions, significant lab abnormalities, going to OR and other pertinent info. @ -Patient signed out to me awaiting imaging results. Patient went over for a chest CT and thoracic spine CT as well as a head and cervical spine. Imaging is reviewed and negative. Results are discussed with patient. She is insistent that she continues to have intractable neck and back pain through the morphine and Toradol. Patient states that she cannot sit up in bed. She remains tachycardic which is the patient's baseline. I did discuss this with the hospitalist Dr. Ochoa. Patient will be kept for a orthopedic spine consult. Undiagnosed new problem with uncertain prognosis? @ -Yes Drug Therapy requiring intensive monitoring for toxicity (Heparin, Nitro, Insulin, Cardizem)? @ -No Were any procedures done? @ -No Diagnosis/symptom? @ -Acute syncope, intractable neck and back pain, tachycardia Acute, or Chronic, or Acute on Chronic? @ -Acute Uncomplicated (without systemic symptoms) or Complicated (systemic symptoms)? @ -Complicated Side effects of treatment? @ -No Exacerbation, Progression, or Severe Exacerbation? @ -No Poses a threat to life or bodily function? How? (Chest pain, USA, NJ, pneumonia, PE, COPD, DKA, ARF, appy, cholecystitis, CVA, Diverticulitis, Homicidal, Suicidal, threat to staff... and all critical care pts) @ -No (Joy Vallejo) - Lab Data Lab Results 12/13/23 12/13/23 12/13/23 Range/Units 14:32 14:32 14:32 WBC 7.0 (3.8-10.6) k/uL RBC 4.43 (3.80-5.40) m/uL Hgb 14.5 (11.4-16.0) gm/dL Hct 41.7 (34.0-46.0) % MCV 94.1 (80.0-100.0) fL MCH 32.8 (25.0-35.0) pg MCHC 34.8 (31.0-37.0) g/dL RDW 12.7 (11.5-15.5) % Plt Count 389 (150-450) k/uL MPV 6.6 Neutrophils % 53 % Lymphocytes % 35 % Monocytes % 4 % Eosinophils % 3 % Basophils % 1 % Neutrophils # 3.7 (1.3-7.7) k/uL Lymphocytes # 2.5 (1.0-4.8) k/uL Monocytes # 0.3 (0-1.0) k/uL Eosinophils # 0.2 (0-0.7) k/uL Basophils # 0.0 (0-0.2) k/uL PT 10.2 (10.0-12.5) sec INR 0.9 (<1.2) APTT 24.7 (22.0-30.0) sec D-Dimer 0.19 (<0.60) mg/L FEU Sodium 140 (137-145) mmol/L Potassium 4.1 (3.5-5.1) mmol/L Chloride 105 (98-107) mmol/L Carbon Dioxide 26 (22-30) mmol/L Anion Gap 9 mmol/L BUN 12 (7-17) mg/dL Creatinine 0.86 (0.52-1.04) mg/dL Est GFR (CKD-EPI)AfAm >90 (>60 ml/min/1.73 sqM) Est GFR (CKD-EPI)NonAf >90 (>60 ml/min/1.73 sqM) Glucose 105 H (74-99) mg/dL Calcium 9.5 (8.4-10.2) mg/dL Magnesium 2.1 (1.6-2.3) mg/dL Total Bilirubin 0.4 (0.2-1.3) mg/dL AST 42 H (14-36) U/L ALT 57 H (4-34) U/L Alkaline Phosphatase 79 (38-126) U/L Troponin I (0.000-0.034) ng/mL Total Protein 7.9 (6.3-8.2) g/dL Albumin 4.8 (3.5-5.0) g/dL 12/13/23 Range/Units 14:32 WBC (3.8-10.6) k/uL RBC (3.80-5.40) m/uL Hgb (11.4-16.0) gm/dL Hct (34.0-46.0) % MCV (80.0-100.0) fL MCH (25.0-35.0) pg MCHC (31.0-37.0) g/dL RDW (11.5-15.5) % Plt Count (150-450) k/uL MPV Neutrophils % % Lymphocytes % % Monocytes % % Eosinophils % % Basophils % % Neutrophils # (1.3-7.7) k/uL Lymphocytes # (1.0-4.8) k/uL Monocytes # (0-1.0) k/uL Eosinophils # (0-0.7) k/uL Basophils # (0-0.2) k/uL PT (10.0-12.5) sec INR (<1.2) APTT (22.0-30.0) sec D-Dimer (<0.60) mg/L FEU Sodium (137-145) mmol/L Potassium (3.5-5.1) mmol/L Chloride (98-107) mmol/L Carbon Dioxide (22-30) mmol/L Anion Gap mmol/L BUN (7-17) mg/dL Creatinine (0.52-1.04) mg/dL Est GFR (CKD-EPI)AfAm (>60 ml/min/1.73 sqM) Est GFR (CKD-EPI)NonAf (>60 ml/min/1.73 sqM) Glucose (74-99) mg/dL Calcium (8.4-10.2) mg/dL Magnesium (1.6-2.3) mg/dL Total Bilirubin (0.2-1.3) mg/dL AST (14-36) U/L ALT (4-34) U/L Alkaline Phosphatase (38-126) U/L Troponin I <0.012 (0.000-0.034) ng/mL Total Protein (6.3-8.2) g/dL Albumin (3.5-5.0) g/dL - EKG Data EKG Comments: 12-lead Electrocardiogram Interpretation Note EKG was reviewed and interpreted by myself. 12-lead ECG performed at 1421 is interpreted by me as revealing sinus tachycardia at a rate of 128 beats per minute. [place] is normal. CO interval is 144 ms, QRS duration 79 ms, QTc is 377 ms.. There were no ST or T wave abnormalities to suggest myocardial ischemia or injury. R wave progression across the precordium was satisfactory. By my interpretation this EKG is non-diagnostic for acute ischemia. (Jr Peterson) Disposition <Jr Peterson - Last Filed: 12/13/23 14:52> Is patient prescribed a controlled substance at d/c from ED?: No Time of Disposition: 18:17 Decision to Admit Reason: Admit from EC Decision Date: 12/13/23 Decision Time: 18:17 <Joy Vallejo - Last Filed: 12/13/23 18:23> Clinical Impression: Opiate dependence, Neck pain, Back pain, Syncopal episodes, Tachycardia Disposition: ADMITTED IP TO THIS [facility] Condition: Stable Referrals: Tiffanie Nicole NPC [STAFF PHYSICIAN] - 1-2 days
[2023-12-13 15:01] LABS: INR 0.9 (<1.2); Partial Thromboplastin Time 24.7 sec (22.0-30.0); Prothrombin Time 10.2 sec (10.0-12.5)
--- NOTE | 2023-12-13 15:22 | XR ---
EXAMINATION TYPE: XR chest 1V portable DATE OF EXAM: 12/13/2023 COMPARISON: NONE HISTORY: Pain TECHNIQUE: Single frontal view of the chest is obtained. FINDINGS: There is no focal air space opacity, pleural effusion, or pneumothorax seen. The cardiac silhouette size is upper limits of normal. The osseous structures are intact. Mid inspiration with coarsened interstitium. IMPRESSION: Worsened interstitial and likely related to reduced inspiration rather than interstitial pneumonitis or bronchitis. Correlate clinically. [facility], , 12/13/2023 3:20 PM
--- NOTE | 2023-12-13 15:24 | XR ---
EXAMINATION TYPE: XR pelvis AP view DATE OF EXAM: 12/13/2023 COMPARISON: NONE HISTORY: Pain post fall Contrast within the bladder and ureter. Mild bilateral hip arthropathy. SI joints symmetric. No defin ite acute fracture or dislocation. IMPRESSION: 1. No acute fracture. [facility], , 12/13/2023 3:22 PM
--- NOTE | 2023-12-13 15:38 | CT ---
EXAMINATION TYPE: CT chest angio for PE, CT thoracic spine w con CT DLP: 3241.9 mGycm, Automated exposure control for dose reduction was used. DATE OF EXAM: 12/13/2023 3:21 PM COMPARISON: None CLINICAL INDICATION: Female, 28 years old with history of syncope, eval for PE; syncope, fall with he ad and back pain TECHNIQUE/CONTRAST: CTA angiogram of the chest was performed with with IV Contrast, patient injected with 100 mL mL of Is ovue 370, MIP images are created and reviewed these are created on a separate workstation.. CT thoracic spine with sagittal and coronal reformats. FINDINGS: Pulmonary Artery: There is no evidence for a filling defect within the pulmonary vasculature to sugge st acute pulmonary embolism. The pulmonary artery is of normal size. Lungs/Pleura: No evidence of focal consolidation, pleural effusion or pneumothorax. Airway: Large airways are patent. Heart: Heart is within normal limits for size. Vasculature: No evidence of aortic aneurysm. Mediastinum: No gross evidence of adenopathy. Musculoskeletal: No acute osseous abnormalities, no evidence for fracture of the spine. No significan t spinal canal or neural foraminal stenosis. Alignment is satisfactory mild degeneration changes thro ughout the spine with disc space narrowing and osteophyte formation Soft Tissues/lymph nodes: Unremarkable. Lower neck: No significant findings. Upper Abdomen: The gallbladder is surgically absent. Diffuse low-attenuation to the liver parenchyma. IMPRESSION: 1. No evidence of pulmonary embolism. 2. Minimal degeneration changes of the spine. No evidence for significant spinal canal or neural fora xochitl stenosis. 3. No evidence for spinal fracture. 4. Hepatic steatosis. [facility], , 12/13/2023 3:36 PM
--- NOTE | 2023-12-13 15:43 | CT ---
EXAMINATION TYPE: CT brain cspine wo con CT DLP: 3241.9 mGycm, Automated exposure control for dose reduction was used. DATE OF EXAM: 12/13/2023 3:21 PM COMPARISON: 10/05/2023. CLINICAL INDICATION: Female, 28 years old with history of fall, pain; syncope, fall with head and tristin k pain TECHNIQUE: Brain: Multiple axial CT images of the brain were obtained without IV contrast. Cspine: Axial CT images from the skull base to the inferior aspect of T2 we obtained without intraven ous contrast. Coronal and sagittal reformatted images were also reviewed. . FINDINGS: Brain: Extra-axial spaces: No abnormal extra-axial fluid collections. Ventricular system: Within normal limits Cerebral parenchyma: No acute intraparenchymal hemorrhage or mass effect. The colon-white junction is well differentiated. Cerebellum: Unremarkable. Mass effect: No evidence of midline shift. Intracranial vasculature: unremarkable Soft tissues: Normal. Calvarium/osseous structures: No depressed skull fracture. Paranasal sinuses and mastoid air cells: Clear. Visualized orbits: Orbital contents are intact. Cervical spine: Fracture: None. Osseous structures: Unremarkable Vertebral alignment: Within normal limits. Spinal canal/Neural Foramina: No evidence of significant spinal canal narrowing. No evidence for sign ificant neural foraminal stenosis. Neck soft tissues: Prevertebral soft tissues are within normal limits. Other: The airway is patent. The lung apices are clear. IMPRESSION: 1. No acute intracranial process. 2. No evidence of cervical spine fracture. [facility], , 12/13/2023 3:41 PM
[2023-12-13] MEDS: METOCLOPRAMIDE 5 MG/ML 2 ML VIAL IVP STA (16:05)
[2023-12-13] MEDS: KETOROLAC 15 MG/ML 1 ML VIAL IVP STA (16:06)
[2023-12-13] MEDS: diphenhydrAMINE 50 MG/ML 1 ML VIAL IVP STA (16:08)
[2023-12-13] MEDS: MAG HYDROX/AL HYDROX/SIMETH 30 ML, HYOSCYAMINE ELIXIR 10 ML, LIDOCAINE VISCOUS 2% 10 ML PO STA (16:21)
[2023-12-13] MEDS ORDERED: KETOROLAC 15 MG/ML 1 ML VIAL IVP PRN (18:18)
[2023-12-13] MEDS ORDERED: NALOXONE 0.4 MG/ML 1 ML VIAL IV PRN (18:18)
[2023-12-13] MEDS ORDERED: ALBUTEROL NEBULIZED 2.5 MG/3 ML INHALATION PRN (18:23)
[2023-12-13] MEDS ORDERED: CYCLOBENZAPRINE 5 MG TAB PO PRN (18:23)
[2023-12-13] MEDS: IBUPROFEN 800 MG TAB PO SCH (19:46)
--- NOTE | 2023-12-13 21:16 | P.HPIM ---
History of Present Illness H&P Date: 12/13/23 Chief Complaint: syncope Patient is a 28-year-old female with mitral valve prolapse, hypothyroidism due to Graves' disease, anxiety, depression who came in for syncope. Yesterday 12/11, patient reported that she was traveling via plane and felt unwell and noted left leg swelling and erythema with associated dizziness, and lightheadedness that was constant. Today, she reported that she was still experiencing lightheadedness and palpitations while she was at an ultrasound room for workup of blood clot on her right upper arm that is being worked up by vascular surgery. She then lost consciousness in the ultrasound room and woke up with dull pain with an intensity of 7-8 out of 10 from her neck to her lower back, and pain on her head. On admission, her left leg symptoms and her lightheadedness have improved. She denied palpitations, tremors, chest pain, s hortness of breath, leg pain, abdominal pain, headaches, changes in vision, facial asymmetry, or focal weakness. no report of seizure like activity , no loss of bladder or bowel control , no tongue biting ED documentation reviewed and case discussed with ED provider. Agree to admit this patient for fall due to syncope. With estimated length of stay greater than 2 midnights for evaluation. Review of systems: Pertinent positives and negatives as discussed in HPI, a complete review of systems was performed and all other systems are negative. Physical examination: Vital signs reviewed General: non toxic, no distress, appears at stated age, Derm: no unusual rashes/lesions, warm Head: atraumatic, normocephalic, symmetric Eyes: EOMI, anicteric sclera, pupils equal round reactive to light ENT: Nose and ears atraumatic Neck: No lesions or masses, trachea midline, supple, tenderness on light palpation of posterior neck Mouth: no lip lesion, mucus membranes moist Cardiovascular: S1S2 reg, no murmur Lungs: CTA bilateral, no rhonchi, no rales, no accessory muscle use Abdominal: soft, nondistended, nontender to palpation, no guarding Ext: muscle strength 5 out of 5 in all 4 extremities grossly, no gross muscle atrophy, no contractures, positive dorsalis pedis pulse bilateral, no leg edema bilaterally , no calf muscle tenderness bilaterally . warmth and slight erythema over the medial posterior aspect of her distal right arm Neuro: CN II-XI grossly intact, no gross focal neuro deficits Psych: Alert and oriented x 3, appropriate affect and mood Assessment/Plan: Patient is [id number]-year-old female was admitted for fall due to syncope. Imaging and labs is negative for VA, fractures, bleeds, or VTE. At current she is still experiencing tachycardia and ED documentation reviewed and case discussed with ED provider. Agree to admit this patient for fall due to syncope. With estimated length of stay greater than 2 midnights for evaluation. #. Fall due to syncope likely cardiogenic vs neurogenic EKG shows tachycardia with a rate of [address]-T changes. Troponin normal at less than 0.012 -Cardiac monitoring -Orthostatics -Fall precautions -IV fluids normal saline 0.9% 75 cc/h -Pain control with Dilaudid 1 IV every 3 hours as needed (patient requesting this higher dose due to no meaning full relief with lower dose .) - Synthroid for now - metoprolol for now -Echocardiogram -Consult orthopedic surgery for pain -Consult cardiology consult neurology , patient report ongoing pain over her thoracic, lumbar and cervical spine, she claims that she feels slightly weak over her right upper and lower extremities Chronic conditions: #. Anxiety #. Depression #. Hypothyroidism #. Asthma -Resume home medications once reconciled Recent history of SVT basilic vein right arm, no DVT as evidenced by Doppler US showed patient has been treated with motrin and aspirin , follow up doppler US showed no progression of disease patient concerned regarding DVT of her left leg, due to recent travel from [place] . D dimer checked and was negative DVT prophylaxis: Lovenox 40 mg SQ OD CODE STATUS: Full Discussed with: Patient Anticipated discharge place: Home 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 promotional model, History of Any Multi-Drug Resistant Organisms: None Reported Past Surgical History: Appendectomy, Section, Cholecystectomy Additional Past Surgical History / Comment(s): thyroidectomy 09/2017, Laparos copic exam w/ cautery endometriosis 2012 Past Anesthesia/Blood Transfusion Reactions: No Reported Reaction Past Psychological History: Anxiety, Depression Smoking Status: Never smoker Past Alcohol Use History: Occasional, Rare Past Drug Use History: None Reported - Past Family History Mother Family Medical History: Asthma Father Family Medical History: Coronary Artery Disease (CAD), CVA/TIA, Diabetes Mellitus Brother(s) Family Medical History: Asthma Medications and Allergies Home Medications Medication Instructions Recorded Confirmed Type Albuterol Nebulized [Ventolin 2.5 mg INHALATION RT-QID PRN 05/18/22 12/13/23 History Nebulized] Cholecalciferol [Vitamin D3 (25 25 mcg PO DAILY 04/25/23 12/13/23 History Mcg = 1000 Iu)] Omeprazole 40 mg PO DAILY@1600 05/13/23 12/13/23 History Metoprolol Succinate [Metoprolol 25 mg PO BID 06/05/23 12/13/23 History Succinate ER] Montelukast [Singulair] 10 mg PO DAILY #20 tab 08/03/23 12/13/23 Rx EPINEPHrine (Auto Inject) [Epipen] 0.3 mg IM ONCE PRN #1 each 11/17/23 12/13/23 Rx diphenhydrAMINE [Benadryl] 25 mg PO TID PRN #21 capsule 11/17/23 12/13/23 Rx Levothyroxine Sodium 150 mcg PO DAILY #30 tab 11/22/23 12/13/23 Rx Ashwagandha 700 mg PO DAILY 11/24/23 12/13/23 History Desvenlafaxine Succinate [Pristiq 50 mg PO DAILY 11/24/23 12/13/23 History ER] Famotidine [Pepcid] 20 mg PO DAILY PRN 11/24/23 12/13/23 History Nortriptyline [Pamelor] 50 mg PO DAILY 11/24/23 12/13/23 History Aspirin 81 mg PO DAILY #30 tab 11/25/23 12/13/23 Rx Ibuprofen [Motrin] 800 mg PO Q8H #21 tab 11/25/23 12/13/23 Rx diazePAM [Valium] 5 mg PO BID 11/25/23 12/13/23 History Brexpiprazole [Rexulti] 1 mg PO DAILY 12/13/23 12/13/23 History Cyclobenzaprine [Flexeril] 5 mg PO TID PRN 12/13/23 12/13/23 History Allergies Allergy/AdvReac Type Severity Reaction Status Date / Time amoxicillin Allergy Rash/Hives Verified 12/13/23 15:40 banana Allergy Anaphylaxis Verified 12/13/23 15:40 nickel Allergy Rash/Hives Verified 12/13/23 15:40 sulfamethoxazole Allergy Rash/Hives Verified 12/13/23 15:40 [From ] trimethoprim [From ] Allergy Rash/Hives Verified 12/13/23 15:40 corn AdvReac Diarrhea Verified 12/13/23 15:40 Physical Exam Vitals: Vital Signs Temp Pulse Resp BP Pulse Ox 12/13/23 16:46 129 H 20 138/92 99 12/13/23 16:11 109 H 20 122/89 100 12/13/23 15:36 122 H 20 110/70 98 12/13/23 14:16 97.9 F 135 H 18 125/95 99 Intake and Output 12/13/23 12/13/23 12/13/23 06:59 14:59 22:59 Other: Weight 75.296 kg Results CBC & Chem 7: 12/13/23 14:32 12/13/23 14:32 Labs: Abnormal Lab Results - Last 24 Hours (Table) 12/13/23 Range/Units 14:32 Glucose 105 H (74-99) mg/dL AST 42 H (14-36) U/L ALT 57 H (4-34) U/L
[2023-12-13] MEDS: diazePAM 5 MG TAB PO SCH (21:33)
[2023-12-13] MEDS: METOPROLOL SUCCINATE (ER) 25 MG TAB.ER.24H PO SCH (21:33)
[2023-12-13] MEDS: HYDROmorphone 0.5 MG/0.5 ML SYRINGE IVP PRN (22:56)
[2023-12-13] MEDS: diphenhydrAMINE 25 MG CAP PO PRN (23:01)
[2023-12-13 23:08] LABS: Appearance,Urine Clear (Clear); Bilirubin,Urine Negative (Negative); Blood,Urine Negative (Negative); Color,Urine Light Yellow; Glucose,Urine (UA) Negative (Negative); Ketones,Urine Negative (Negative); Leukocyte Esterase,Urine Negative (Negative); Nitrite,Urine Negative (Negative); PH, Urine 6.5 (5.0-8.0); Protein,Urine Negative (Negative); Urobilinogen,Urine <2.0 mg/dL (<2.0)
[2023-12-13 23:21] LABS: Amphetamine Screen,Urine Not Detected (NotDetected); Barbiturate Screen,Urine Not Detected (NotDetected); Benzodiazepines Screen,Urine Detected (NotDetected); Cocaine Screen,Urine Not Detected (NotDetected); Methadone Screen, Urine Not Detected (NotDetected); Opiate Screen,Urine Detected (NotDetected); Oxycodone Screen, Urine Not Detected (NotDetected); Phencyclidine Screen,Urine Not Detected (NotDetected); Tricyclic Antidepressant,Urine Detected (NotDetected); Urn Cannabinoid Scrn Not Detected (NotDetected)
[2023-12-14] MEDS ORDERED: diphenhydrAMINE 50 MG/ML 1 ML VIAL IVP PRN (00:05)
[2023-12-14] MEDS ORDERED: KETOROLAC 15 MG/ML 1 ML VIAL IVP PRN (00:05)
[2023-12-14] MEDS ORDERED: ACETAMINOPHEN TAB 325 MG TAB PO PRN (00:38)
[2023-12-14] MEDS ORDERED: ONDANSETRON 4 MG/2 ML VIAL IVP PRN (00:38)
[2023-12-14] MEDS: HYDROmorphone 1 MG/ML 1 ML SYRINGE IVP PRN (02:41)
[2023-12-14] MEDS: LEVOTHYROXINE 75 MCG TAB PO SCH (05:52)
[2023-12-14 07:24] VITALS: BP 121/86; PULSE 93; RESP 16; TEMP 97.8
[2023-12-14 08:47] LABS: Basophils # (A) 0.04 X 10*3/uL (0.00-0.10); Basophils % (A) 0.6 %; Eosinophils # (A) 0.21 X 10*3/uL (0.04-0.35); Eosinophils % (A) 3.3 %; HCT 39.1 % (37.2-46.3); Lymphocytes # (A) 3.07 X 10*3/uL (0.90-5.00); Lymphocytes % (A) 47.9 %; MCH 31.4 pg (27.0-32.0); MCHC 33.2 g/dL (32.0-37.0); MCV 94.4 FL (80.0-97.0); Mean Platelet Volume 9.2 FL (9.5-12.2); Monocytes # (A) 0.43 X 10*3/uL (0.20-1.00); Monocytes % (A) 6.7 %; NRBC Per 100 WBC 0 X 10*3/uL (0.00-0.01); Neutrophils # (A) 2.65 X 10*3/uL (1.80-7.70); Neutrophils % (A) 41.3 %; Platelet Count 278 X 10*3/uL (140-440); RBC 4.14 X 10*6/uL (4.10-5.20); RDW 12.5 % (11.5-14.5); WBC 6.41 X 10*3/uL (4.50-10.00)
[2023-12-14 08:51] LABS: BUN/Creat Ratio 20.86 Ratio (12.00-20.00); Blood Urea Nitrogen 14.6 mg/dL (9.0-27.0); Calcium 8.3 mg/dL (8.7-10.3); Carbon Dioxide 21.6 mmol/L (21.6-31.8); Chloride 108 mmol/L (96-109); Glucose 98 mg/dL (70-110); Magnesium 2.2 mg/dL (1.5-2.4); Potassium 4.1 mmol/L (3.5-5.5); Sodium 140 mmol/L (135-145)
[2023-12-14 08:52] LABS: T4, Free (Free Thyroxine) 1.17 ng/dL (0.80-1.80)
[2023-12-14] MEDS: MONTELUKAST 10 MG TAB PO SCH (09:46)
[2023-12-14] MEDS: ENOXAPARIN 40 MG/0.4 ML SYRINGE SQ SCH (09:46)
[2023-12-14] MEDS: DESVENLAFAXINE SUCCINATE 50 MG TAB.ER.24H PO SCH (09:47)
[2023-12-14] MEDS: NORTRIPTYLINE 25 MG CAP PO SCH (09:47)
[2023-12-14] MEDS: CHOLECALCIFEROL 25 MCG (1000 IU) TABLET PO SCH (09:47)
[2023-12-14] MEDS: NON FORMULARY DRUG (Brexpiprazole [Rexulti] 1 MG Tablet) PO SCH (09:50)
[2023-12-14] MEDS: ASPIRIN 81 MG PO SCH (09:55)
[2023-12-14] MEDS: SODIUM CHLORIDE 0.9% 1,000 ML IV SCH (10:04)
--- NOTE | 2023-12-14 10:21 | P.CRDCN ---
History of Present Illness History of present illness: This is a 28-year-old female with a past medical history significant for hypothyroidism, inappropriate sinus tachycardia, and mitral valve regurgitation. Patient follows in the office with Dr. Chapman. Patient has been having a number of issues over the last few months. She had been placed on metoprolol and some of her symptoms of palpitations had improved. She was going for a outpatient right upper extremity ultrasound and states she had been noticing her heart racing. Much the whole day. She will check at home and it had been in the 120 to 1:30 range. She denies any health's different about the day. She had been in [place] over the weekend and had been feeling very good with heart rates usually more in the 90 range. That day her heart rate was fairly consistently in the 120s. She therefore told that sterile instrument technician that she had fast heart rate and approximate 5 minutes in the exam where she had been sitting up and then had a syncopal episode. EKG showed sinus tachycardia with heart rate 1:30. Her heart rate slowly improved. Today she feels fine. She states she feels better on metoprolol and is interested in going up on the dose and discuss this would be reasonable. D-dimer normal however CT PE protocol performed and showed no PE. DIAGNOSTICS: - EKG reveals sinus tachycardia with no signs of acute ischemia. Baseline artifact. - Most recent echocardiogram obtained in August 2023 at the cardiology office revealed ejection fraction 55%, mild mitral regurgitation, mild tricuspid regurgitation - Cardiac catheterization history: Patient denies REVIEW OF SYSTEMS: At the time of my exam: CONSTITUTIONAL: Denies fever or chills. HEENT: Denies blurred vision, vision changes, or eye pain. Denies hemoptysis CARDIOVASCULAR: Denies chest pain. Denies orthopnea. Denies PND. +palpitations RESPIRATORY: Denies shortness of breath. GASTROINTESTINAL: Denies abdominal pain. Denies nausea or vomiting. HEMATOLOGIC: Denies bleeding disorders. GENITOURINARY: Denies any blood in urine. SKIN: Denies pruitis. Denies rash. PHYSICAL EXAM: VITAL SIGNS: Reviewed. GENERAL: Well-developed in no acute distress. HEENT: Head is normocephalic. Pupils are equal, round. Sclerae anicteric. Mucous membranes of the mouth are moist. Neck supple. No JVD or thyromegaly LUNGS: Respirations even and unlabored. Lungs essentially clear to auscultation bilaterally. HEART: Regular rate and rhythm. S1 and S2 heard. ABDOMEN: Soft. Nondistended. Nontender. EXTREMITIES: Normal range of motion. No clubbing or cyanosis. Peripheral pulses intact. Right upper extremity with mild erythema and edema. Tenderness with palpation. NEUROLOGIC: Awake and alert. Oriented x 3. ASSESSMENT: Syncope Superficial venous thrombosis of right basilic vein Chest pain, troponin negative x 1, EKG without ischemic changes History of inappropriate sinus tachycardia Mild mitral and tricuspid regurgitation Hypothyroidism with elevated TSH at 28.2 PLAN: No significant arrhythmias noted on monitor or EKG. Appears sinus tachycardia and inappropriate sinus tachycardia. She has been doing better on the metoprolol and we will increase up to 50 mg in the morning and 25 mg at night. No further recommendations from her inpatient standpoint. Follow-up outpatient. 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 dip guider stoves, History of Any Multi-Drug Resistant Organisms: None Reported Past Surgical History: Appendectomy, Section, Cholecystectomy Additional Past Surgical History / Comment(s): thyroidectomy 09/2017, Laparoscopic exam w/ cautery endometriosis 2012 Past Anesthesia/Blood Transfusion Reactions: No Reported Reaction Past Psychological History: Anxiety, Depression Smoking Status: Never smoker Past Alcohol Use History: Occasional, Rare Past Drug Use History: None Reported - Past Family History Mother Family Medical History: Asthma Father Family Medical History: Coronary Artery Disease (CAD), CVA/TIA, Diabetes Mellitus Brother(s) Family Medical History: Asthma Medications and Allergies Home Medications Medication Instructions Recorded Confirmed Type Albuterol Nebulized [Ventolin 2.5 mg INHALATION RT-QID PRN 05/18/22 12/13/23 History Nebulized] Cholecalciferol [Vitamin D3 (25 25 mcg PO DAILY 04/25/23 12/13/23 History Mcg = 1000 Iu)] Omeprazole 40 mg PO DAILY@1600 05/13/23 12/13/23 History Metoprolol Succinate [Metoprolol 25 mg PO BID 06/05/23 12/13/23 History Succinate ER] Montelukast [Singulair] 10 mg PO DAILY #20 tab 08/03/23 12/13/23 Rx EPINEPHrine (Auto Inject) [Epipen] 0.3 mg IM ONCE PRN #1 each 11/17/23 12/13/23 Rx diphenhydrAMINE [Benadryl] 25 mg PO TID PRN #21 capsule 11/17/23 12/13/23 Rx Levothyroxine Sodium 150 mcg PO DAILY #30 tab 11/22/23 12/13/23 Rx Ashwagandha 700 mg PO DAILY 11/24/23 12/13/23 History Desvenlafaxine Succinate [Pristiq 50 mg PO DAILY 11/24/23 12/13/23 History ER] Famotidine [Pepcid] 20 mg PO DAILY PRN 11/24/23 12/13/23 History Nortriptyline [Pamelor] 50 mg PO DAILY 11/24/23 12/13/23 History Aspirin 81 mg PO DAILY #30 tab 11/25/23 12/13/23 Rx Ibuprofen [Motrin] 800 mg PO Q8H #21 tab 11/25/23 12/13/23 Rx diazePAM [Valium] 5 mg PO BID 11/25/23 12/13/23 History Brexpiprazole [Rexulti] 1 mg PO DAILY 12/13/23 12/13/23 History Cyclobenzaprine [Flexeril] 5 mg PO TID PRN 12/13/23 12/13/23 History Allergies Allergy/AdvReac Type Severity Reaction Status Date / Time amoxicillin Allergy Rash/Hives Verified 12/13/23 15:40 banana Allergy Anaphylaxis Verified 12/13/23 15:40 nickel Allergy Rash/Hives Verified 12/13/23 15:40 sulfamethoxazole Allergy Rash/Hives Verified 12/13/23 15:40 [From ] trimethoprim [From ] Allergy Rash/Hives Verified 12/13/23 15:40 corn AdvReac Diarrhea Verified 12/13/23 15:40 Physical Exam Vitals: Vital Signs Temp Pulse Pulse Resp BP BP Pulse Ox 12/14/23 08:27 98 12/14/23 06:50 97.8 F 93 16 121/86 96 12/14/23 02:41 98.0 F 118 H 17 124/81 97 12/14/23 02:32 118 H 17 12/13/23 21:33 103 H 17 12/13/23 21:12 98.3 F 103 H 17 134/85 99 12/13/23 20:00 102 H 18 119/87 97 12/13/23 16:46 129 H 20 138/92 99 12/13/23 16:11 109 H 20 122/89 100 12/13/23 15:36 122 H 20 110/70 98 12/13/23 14:16 97.9 F 135 H 18 125/95 99 Intake and Output 12/13/23 12/14/23 12/14/23 22:59 06:59 14:59 Other: Voiding Method Toilet Toilet Toilet # Voids 2 2 Weight 75.296 kg Results 12/14/23 05:01 12/14/23 05:01 Cardiac Enzymes 12/13/23 12/13/23 Range/Units 14:32 14:32 AST 42 H (14-36) U/L Troponin I <0.012 (0.000-0.034) ng/mL Coagulation 12/13/23 Range/Units 14:32 PT 10.2 (10.0-12.5) sec APTT 24.7 (22.0-30.0) sec CBC 12/13/23 12/14/23 Range/Units 14:32 05:01 WBC 7.0 6.41 (3.8-10.6) k/uL RBC 4.43 4.14 (3.80-5.40) m/uL Hgb 14.5 13.0 (11.4-16.0) gm/dL Hct 41.7 39.1 (34.0-46.0) % Plt Count 389 278 (150-450) k/uL Comprehensive Metabolic Panel 12/13/23 12/14/23 Range/Units 14:32 05:01 Sodium 140 140 (137-145) mmol/L Potassium 4.1 4.1 (3.5-5.1) mmol/L Chloride 105 108 (98-107) mmol/L Carbon Dioxide 26 21.6 (22-30) mmol/L BUN 12 14.6 (7-17) mg/dL Creatinine 0.86 0.7 (0.52-1.04) mg/dL Glucose 105 H 98 (74-99) mg/dL Calcium 9.5 8.3 L (8.4-10.2) mg/dL AST 42 H (14-36) U/L ALT 57 H (4-34) U/L Alkaline Phosphatase 79 (38-126) U/L Total Protein 7.9 (6.3-8.2) g/dL Albumin 4.8 (3.5-5.0) g/dL Current Medications Generic Name Dose Route Start Last Admin Trade Name Freq PRN Reason Stop Dose Admin Acetaminophen 650 mg 12/14/23 00:38 Acetaminophen Tab 325 Mg Tab PO Q4HR PRN Fever and/ or Pain Albuterol Sulfate 2.5 mg 12/13/23 18:23 Albuterol Nebulized 2.5 Mg/3 Ml INHALATION RT-QID PRN Shortness Of Breath Aspirin 81 mg 12/14/23 09:00 12/14/23 09:55 Aspirin 81 Mg PO 81 mg DAILY [facility] Administration Cholecalciferol 25 mcg 12/14/23 09:00 12/14/23 09:47 Cholecalciferol 25 Mcg (1000 Iu) Tablet PO 25 mcg DAILY [facility] Administration Cyclobenzaprine HCl 5 mg 12/13/23 18:23 Cyclobenzaprine 5 Mg Tab PO TID PRN Muscle Spasm Desvenlafaxine Succinate 50 mg 12/14/23 09:00 12/14/23 09:47 Desvenlafaxine Succinate 50 Mg Tab.Er.24h PO 50 mg DAILY [facility] Administration Diazepam 5 mg 12/13/23 21:00 12/14/23 09:47 Diazepam 5 Mg Tab PO 5 mg BID [facility] Administration Diphenhydramine HCl 25 mg 12/13/23 18:23 12/13/23 23:01 Diphenhydramine 25 Mg Cap PO 25 mg TID PRN Administration Allergic Reaction Diphenhydramine HCl 25 mg 12/14/23 00:05 Diphenhydramine 50 Mg/Ml 1 Ml Vial IVP Q6HR PRN Allergy Symptoms Enoxaparin Sodium 40 mg 12/14/23 09:00 12/14/23 09:50 Enoxaparin 40 Mg/0.4 Ml Syringe SQ Not Given DAILY [facility] Hydromorphone HCl 1 mg 12/14/23 00:05 12/14/23 06:18 Hydromorphone 1 Mg/Ml 1 Ml Syringe IVP 1 mg Q3HR PRN Administration Pain Sodium Chloride 1,000 mls @ 75 mls/hr 12/14/23 00:45 12/14/23 10:04 Saline 0.9% IV Not Given .[id number] [facility] Ibuprofen 800 mg 12/13/23 19:00 12/14/23 09:46 Ibuprofen 800 Mg Tab PO 800 mg Q8HR [facility] Administration Ketorolac Tromethamine 15 mg 12/14/23 00:05 Ketorolac 15 Mg/Ml 1 Ml Vial IVP 12/19/23 00:06 Q6HR PRN pain Levothyroxine Sodium 150 mcg 12/14/23 06:30 12/14/23 05:52 Levothyroxine 75 Mcg Tab PO 150 mcg DAILY@0630 [facility] Administration Metoprolol Succinate 25 mg 12/13/23 21:00 12/14/23 09:46 Metoprolol Succinate (Er) 25 Mg Tab.Er.24h PO 25 mg BID [place] Administration Montelukast Sodium 10 mg 12/14/23 09:00 12/14/23 09:46 Montelukast 10 Mg Tab PO 10 mg DAILY [facility] Administration Naloxone HCl 0.2 mg 12/13/23 18:18 Naloxone 0.4 Mg/Ml 1 Ml Vial IV Q2M PRN Opioid Reversal Non-Formulary Medication 1 mg 12/14/23 09:00 12/14/23 09:50 Brexpiprazole [Rexulti] PO Not Given DAILY [facility] Nortriptyline HCl 50 mg 12/14/23 09:00 12/14/23 09:47 Nortriptyline 25 Mg Cap PO 50 mg DAILY [facility] Administration Ondansetron HCl 4 mg 12/14/23 00:38 Ondansetron 4 Mg/2 Ml Vial IVP Q6HR PRN Nausea And Vomiting Pantoprazole Sodium 40 mg 12/14/23 16:00 Pantoprazole 40 Mg Tablet PO DAILY@1600 [facility] Intake and Output 12/13/23 12/14/23 12/14/23 22:59 06:59 14:59 Other: Voiding Method Toilet Toilet Toilet # Voids 2 2 Weight 75.296 kg 12/14/23 05:01 12/14/23 05:01
[2023-12-14] MEDS: METOPROLOL SUCCINATE (ER) 25 MG TAB.ER.24H PO STA (10:48)
--- NOTE | 2023-12-14 11:10 | P.DS ---
Providers Date of admission: 12/13/23 18:20 Attending physician: Mejia Ochoa Consults: 12/13/23 18:18 Consult Physician Urgent Consulting Provider: [facility] Consult Reason/Comments: syncope Do you want consulting provider notified?: Yes 12/14/23 00:22 Consult Physician Urgent Consulting Provider: Artem Torres Reason/Comments: weakness Do you want consulting provider notified?: Yes [facility] Course: Discharge Diagnosis: Fall due to syncope could be due to polypharmacy versus cardiac etiology Superficial DVT in the right arm Anxiety Depression Hypothyroidism Asthma Hospital Course: Patient is a 28-year-old female with history of mitral valve prolapse, hypothyroidism due to Graves' disease, anxiety, depression who came into the hospital for evaluation of syncope. Patient was getting an ultrasound for blood clot and had the episode of fall and syncope. So she was sent to ED for evaluation. In the ED trauma workup was negative. CTA chest was negative for pulmonary embolism. Patient reports that the syncope was associated with lightheadedness and palpitations. Patient also had a recent admission for chest pain. Echocardiogram done at that admission was unremarkable. Patient was admitted for evaluation by cardiology. Patient was placed on secured entrance monitor. Patient was evaluated by cardiology who noted that patient had inappropriate sinus tachycardia. Cardiology increased the patient's beta-farrukh to 50 mg in the morning and 25 mg at nighttime. Patient was cleared for discharge by cardiology. Patient deemed stable for discharge. Patient's TSH was also elevated at 11.3 and free T4 was within normal limits. Will have patient follow- up with PCP for repeat thyroid labs. Of note patient is also on multiple sedating medications. Patient will need to follow-up with PCP to make adjustments as this could also be contributing to patient's syncope. Patient is also looking forward to going home. Patient seen and examined at bedside.[] Vital signs reviewed and stable. General: [non toxic], [no distress], [appears at stated age] Derm: [warm], [dry] Head: [atraumatic], [normocephalic], [symmetric] Eyes: [EOMI], [no lid lag], [anicteric sclera] Mouth: [no lip lesion], [mucus membranes moist] Cardiovascular: [S1S2 reg], [no murmur], [positive posterior tibial pulse bilateral], Lungs: [CTA bilateral], [no rhonchi, no rales] , [no accessory muscle use] Abdominal: [soft], [ nontender to palpation], [no guarding], [no appreciable organomegaly] Ext: [no gross muscle atrophy], [no edema], [no contractures] Neuro: [ CN II-XI grossly intact], [no focal neuro deficits] Psych: [Alert], [oriented], [appropriate affect] A total of [33] minutes of time were spent preparing this complex discharge summary . Patient Condition at Discharge: Stable Plan - Discharge Summary Discharge Rx Participant: No New Discharge Prescriptions: Continue Albuterol Nebulized [Ventolin Nebulized] 2.5 mg INHALATION RT-QID PRN PRN Reason: Shortness Of Breath Omeprazole 40 mg PO DAILY@1600 Montelukast [Singulair] 10 mg PO DAILY #20 tab Levothyroxine Sodium 150 mcg PO DAILY #30 tab Nortriptyline [Pamelor] 50 mg PO DAILY Desvenlafaxine Succinate [Pristiq ER] 50 mg PO DAILY Aspirin 81 mg PO DAILY #30 tab Cholecalciferol [Vitamin D3 (25 Mcg = 1000 Iu)] 25 mcg PO DAILY diphenhydrAMINE [Benadryl] 25 mg PO TID PRN #21 capsule PRN Reason: Allergic Reaction EPINEPHrine (Auto Inject) [Epipen] 0.3 mg IM ONCE PRN #1 each PRN Reason: Anaphylaxis Famotidine [Pepcid] 20 mg PO DAILY PRN PRN Reason: Gi Upset Ashwagandha 700 mg PO DAILY diazePAM [Valium] 5 mg PO BID Ibuprofen [Motrin] 800 mg PO Q8H #21 tab Brexpiprazole [Rexulti] 1 mg PO DAILY Cyclobenzaprine [Flexeril] 5 mg PO TID PRN PRN Reason: Muscle Spasm Changed Metoprolol Succinate [Metoprolol Succinate ER] See Rx Instructions .ROUTE .COMPLEX 30 Days #90 tab Discharge Medication List Albuterol Nebulized [Ventolin Nebulized] 2.5 mg INHALATION RT-QID PRN 05/18/22 [History] Cholecalciferol [Vitamin D3 (25 Mcg = 1000 Iu)] 25 mcg PO DAILY 04/25/23 [History] Omeprazole 40 mg PO DAILY@1600 05/13/23 [History] Montelukast [Singulair] 10 mg PO DAILY #20 tab 08/03/23 [Rx] EPINEPHrine (Auto Inject) [Epipen] 0.3 mg IM ONCE PRN #1 each 11/17/23 [Rx] diphenhydrAMINE [Benadryl] 25 mg PO TID PRN #21 capsule 11/17/23 [Rx] Levothyroxine Sodium 150 mcg PO DAILY #30 tab 11/22/23 [Rx] Ashwagandha 700 mg PO DAILY 11/24/23 [History] Desvenlafaxine Succinate [Pristiq ER] 50 mg PO DAILY 11/24/23 [History] Famotidine [Pepcid] 20 mg PO DAILY PRN 11/24/23 [History] Nortriptyline [Pamelor] 50 mg PO DAILY 11/24/23 [History] Aspirin 81 mg PO DAILY #30 tab 11/25/23 [Rx] Ibuprofen [Motrin] 800 mg PO Q8H #21 tab 11/25/23 [Rx] diazePAM [Valium] 5 mg PO BID 11/25/23 [History] Brexpiprazole [Rexulti] 1 mg PO DAILY 12/13/23 [History] Cyclobenzaprine [Flexeril] 5 mg PO TID PRN 12/13/23 [History] Metoprolol Succinate [Metoprolol Succinate ER] See Rx Instructions .ROUTE .COMPLEX 30 Days #90 tab 12/14/23 [Rx] Follow up Appointment(s)/Referral(s): Imtiaz Chapman DO [STAFF PHYSICIAN] - 1 Week Tiffanie Nicole NPC [STAFF PHYSICIAN] - 1-2 days Patient Instructions/Handouts: Syncope (GEN) Activity/Diet/Wound Care/Special Instructions: Prescription given for outpatient MRI of lumbar spine Discharge Disposition: HOME SELF-CARE
[2023-12-14] MEDS ORDERED: PANTOPRAZOLE 40 MG TABLET PO SCH (16:00)
== END 2023-12-14 11:24 | disposition home or self-care (01) ==
LOC: EC 14:15 → 6NMEDSUR 18:20
PROVIDERS: ADMIT Student in an Organized Health Care Education/Training Program; ATTEND Student in an Organized Health Care Education/Training Program
DX: R55 Syncope and collapse (principal); I47.11 Inappropriate sinus tachycardia, so stated; I82.611 Acute embolism and thrombosis of superficial veins of right upper extremity; M54.2 Cervicalgia; M54.9 Dorsalgia, unspecified; I34.1 Nonrheumatic mitral (valve) prolapse; F41.9 Anxiety disorder, unspecified; E05.00 Thyrotoxicosis with diffuse goiter without thyrotoxic crisis or storm; E03.8 Other specified hypothyroidism; F32.A Depression, unspecified; J45.909 Unspecified asthma, uncomplicated; Z79.890 Hormone replacement therapy; Z79.82 Long term (current) use of aspirin; Z79.899 Other long term (current) drug therapy; Z88.1 Allergy status to other antibiotic agents; Z88.2 Allergy status to sulfonamides; Z79.1 Long term (current) use of non-steroidal anti-inflammatories (NSAID); Z82.49 Family history of ischemic heart disease and other diseases of the circulatory system
CPT/HCPCS: 96376; 96375 ×2; 96361; 96374; 99285; 36415; 94760; 93005; 85379; 84439; 80053; 80048; 84443; 83735 ×2; 84484; 85025 ×2; 85610; 85730; 81003; 81025; 80306; 72170; 71045; 72129; 72125; 70450; 71275; G0378 ×2; J2270; J1200; J1171 ×2; J1885; Q9967

== ENCOUNTER → 2023-12-13 | Outpatient (CLI) | payer MEDICAID, OTHER ==
--- NOTE | 2023-12-13 14:29 | US ---
EXAMINATION TYPE: US venous doppler duplex LE LT DATE OF EXAM: 12/13/2023 1:39 PM COMPARISON: NONE CLINICAL INDICATION: Female, 28 years old with history of [id number], R2242, [id number], R2231; Hx of SVT. Santana larry takes baby aspirin. Pain and swelling. TECHNIQUE: The lower extremity deep venous system is examined utilizing real time linear array sonog shiv with graded compression, color doppler sonography, and spectral doppler. SIDE PERFORMED: Left FINDINGS: VESSELS IMAGED: Common Femoral Vein Deep Femoral Vein Greater Saphenous Vein * Femoral Vein Popliteal Vein Small Saphenous Vein * Left Leg: No evidence of DVT. Grayscale, color doppler, spectral doppler imaging performed of the deep veins of the lower extremiti es. IMPRESSION: 1. No ultrasound evidence for deep venous thrombosis of the lower extremity. [facility], , 12/13/2023 2:26 PM
--- NOTE | 2023-12-13 14:31 | US ---
EXAMINATION TYPE: US venous doppler duplex UE RT DATE OF EXAM: 12/13/2023 COMPARISON: NONE CLINICAL INDICATION: Female, 28 years old with history of [id number], R2242, [id number], R2231; Patient takes baby aspirin. TECHNIQUE: Grayscale, color Doppler and spectral Doppler imaging of the upper extremity. SIDE PERFORMED: Right arm FINDINGS: Right Arm: SVT seen in basilic vein within upper arm. Color flow not seen within the vessel. Vein d oes not compress. No evidence of DVT. Report called to referring clinician. 2:28 PM 12/13/2023. Grayscale, color doppler, spectral doppler imaging performed of the deep veins of the upper extremiti es. IMPRESSION: 1. Exam positive for SVT in the basilic vein. 2. Exam negative for deep venous thrombosis. [facility], , 12/13/2023 2:28 PM
== END | disposition home or self-care (01) ==
LOC: RADUSWWP 12:41
PROVIDERS: ATTEND Surgery

== ENCOUNTER → 2023-12-20 | Outpatient (CLI) | payer MEDICAID, OTHER | END | disposition home or self-care (01) | LOC: LABMAIN 10:08 | PROVIDERS: ATTEND Physician Assistant | DX: R10.9 Unspecified abdominal pain (principal) | CPT/HCPCS: 84702 ==

== ENCOUNTER → 2023-12-22 | Outpatient (CLI) | payer MEDICAID, OTHER | END | disposition home or self-care (01) | LOC: LABMAIN 14:05 | PROVIDERS: ATTEND Physician Assistant | DX: Z33.1 Pregnant state, incidental (principal) | CPT/HCPCS: 84702 ==

== ENCOUNTER 2023-12-24 11:12 | Emergency (ER) | payer MEDICAID, OTHER ==
--- NOTE | 2023-12-24 12:17 | ED ---
Abdominal Pain HPI - General Chief Complaint: Abdominal Pain Stated Complaint: Abdominal Pain Time Seen by Provider: 12/24/23 11:28 Source: patient, RN notes reviewed Mode of arrival: ambulatory Limitations: no limitations - History of Present Illness Initial Comments: This is a 28-year-old female with history of nephrolithiasis and cholelithiasis presenting with right upper quadrant pain (9 out of 10) x 3 days. Patient states pain has worsened today with associated chills, nausea and vomiting. Patient states pain radiates to right flank, right pelvis and back. Patient endorses history of cholecystectomy and appendectomy. Patient endorses having a quantitative hCG done earlier today, which was negative. Patient endorses use of Motrin and aspirin with no relief in pain. Patient denies chest pain, dyspnea, fever, constipation, diarrhea, urinary symptoms, hematemesis. MD Complaint: abdominal pain, flank pain Onset/Timin -: days(s) Location: RUQ Radiation: R flank, back Severity scale (1-10): 9 Consistency: constant Worsens With: movement Associated Symptoms: nausea, vomiting, chills Treatments Prior to Arrival: NSAIDs - Related Data Home Medications Medication Instructions Recorded Confirmed Albuterol Nebulized [Ventolin 2.5 mg INHALATION RT-QID PRN 05/18/22 12/13/23 Nebulized] Cholecalciferol [Vitamin D3 (25 25 mcg PO DAILY 04/25/23 12/13/23 Mcg = 1000 Iu)] Omeprazole 40 mg PO DAILY@1600 05/13/23 12/13/23 Ashwagandha 700 mg PO DAILY 11/24/23 12/13/23 Desvenlafaxine Succinate [Pristiq 50 mg PO DAILY 11/24/23 12/13/23 ER] Famotidine [Pepcid] 20 mg PO DAILY PRN 11/24/23 12/13/23 Nortriptyline [Pamelor] 50 mg PO DAILY 11/24/23 12/13/23 diazePAM [Valium] 5 mg PO BID 11/25/23 12/13/23 Brexpiprazole [Rexulti] 1 mg PO DAILY 12/13/23 12/13/23 Cyclobenzaprine [Flexeril] 5 mg PO TID PRN 12/13/23 12/13/23 Previous Rx's Medication Instructions Recorded Montelukast [Singulair] 10 mg PO DAILY #20 tab 08/03/23 EPINEPHrine (Auto Inject) [Epipen] 0.3 mg IM ONCE PRN #1 each 11/17/23 diphenhydrAMINE [Benadryl] 25 mg PO TID PRN #21 capsule 11/17/23 Levothyroxine Sodium 150 mcg PO DAILY #30 tab 11/22/23 Aspirin 81 mg PO DAILY #30 tab 11/25/23 Ibuprofen [Motrin] 800 mg PO Q8H #21 tab 11/25/23 Metoprolol Succinate [Metoprolol See Rx Instructions .ROUTE 12/14/23 Succinate ER] .COMPLEX 30 Days #90 tab Tamsulosin [Flomax] 0.4 mg PO DAILY #10 cap 12/24/23 Allergies Allergy/AdvReac Type Severity Reaction Status Date / Time amoxicillin Allergy Rash/Hives Verified 12/24/23 11:29 banana Allergy Anaphylaxis Verified 12/24/23 11:29 nickel Allergy Rash/Hives Verified 12/24/23 11:29 sulfamethoxazole Allergy Rash/Hives Verified 12/24/23 11:29 [From Septra] trimethoprim [From Octra] Allergy Rash/Hives Verified 12/24/23 11:29 corn AdvReac Diarrhea Verified 12/24/23 11:29 Review of Systems ROS Statement: Those systems with pertinent positive or pertinent negative responses have been documented in the HPI. ROS Other: All systems not noted in ROS Statement are negative. 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 accounting specialist, History of Any Multi-Drug Resistant Organisms: None Reported Past Surgical History: Appendectomy, Section, Cholecystectomy Additional Past Surgical History / Comment(s): thyroidectomy 09/2017, Laparosc opic exam w/ cautery endometriosis 2012 Past Anesthesia/Blood Transfusion Reactions: No Reported Reaction Past Psychological History: Anxiety, Depression Smoking Status: Never smoker Past Alcohol Use History: Occasional, Rare Past Drug Use History: None Reported - Past Family History Mother Family Medical History: Asthma Father Family Medical History: Coronary Artery Disease (CAD), CVA/TIA, Diabetes Mellitus Brother(s) Family Medical History: Asthma General Exam Limitations: no limitations General appearance: alert, in no apparent distress Head exam: Present: atraumatic, normocephalic, normal inspection Eye exam: Present: normal appearance, PERRL, EOMI. Absent: scleral icterus, conjunctival injection, periorbital swelling ENT exam: Present: normal exam, mucous membranes moist Neck exam: Present: normal inspection. Absent: tenderness, meningismus, lymphadenopathy Respiratory exam: Present: normal lung sounds bilaterally. Absent: respiratory distress, wheezes, rales, rhonchi, stridor Cardiovascular Exam: Present: regular rate, normal rhythm, normal heart sounds. Absent: systolic murmur, diastolic murmur, rubs, gallop, clicks GI/Abdominal exam: Present: soft, tenderness (Positive diffuse abdominal tenderness especially in right upper quadrant. Negative guarding, negative [place] sign. Positive right upper quadrant tympanic tenderness. Negative rebound tenderness), diminished bowel sounds. Absent: distended, guarding, rebound, rigid Extremities exam: Present: normal inspection, full ROM, normal capillary refill. Absent: tenderness, pedal edema, joint swelling, calf tenderness Back exam: Present: normal inspection Neurological exam: Present: alert, oriented X3, CN II-XII intact Psychiatric exam: Present: normal affect, normal mood Skin exam: Present: warm, dry, intact, normal color. Absent: rash Course Vital Signs 12/24/23 12/24/23 11:26 14:39 Temperature 98.3 F 98.0 F Pulse Rate 106 H 109 H Respiratory 16 18 Rate Blood Pressure 120/91 133/92 O2 Sat by Pulse 97 98 Oximetry Medical Decision Making - Medical Decision Making Was pt. sent in by a medical professional or institution (, PA, TOPOLOGY PROFESSOR, urgent care, hospital, or care home...) When possible be specific @ -No Did you speak to anyone other than the patient for history (EMS, parent, family, police, friend...)? What history was obtained from this source @ -No Did you review nursing and triage notes (agree or disagree)? Why? @ -I reviewed and agree with nursing and triage notes Were old charts reviewed (outside hosp., previous admission, EMS record, old EKG, old radiological studies, urgent care reports/EKG's, care home records)? Report findings @ -No old charts were reviewed Differential Diagnosis (chest pain, altered mental status, abdominal pain women, abdominal pain men, vaginal bleeding, weakness, fever, dyspnea, syncope, headache, dizziness, GI bleed, back pain, seizure, CVA, palpatations, mental health, musculoskeletal)? @ -Differential Abdominal Pain Women: Appendicitis, Cholecystitis, diverticulosis, ischemic bowel, pancreatitis, hepatitis, UTI, gastroenteritis, AAA, incarcerated hernia, bowel obstruction, constipation, inflammatory bowel, hepatitis, peptic ulcer disease, splenic infarction, perforated viscus, vulvitis, ovarian torsion, PID, kidney stone, placenta abruption, this is not meant to be an all-inclusive list EKG interpreted by me (3pts min.). @ -Sinus rhythm without ST changes or T wave inversion. Ventricular rate 87 bpm, RC 156 ms, QRS duration 94 ms, QTc 393 ms X-rays interpreted by me (1pt min.). @ -None done CT interpreted by me (1pt min.). @ -Abdominal CT revealed bilateral nonobstructing nephrolithiasis at 3 mm. No gallstones in common bile duct. U/S interpreted by me (1pt. min.). @ -None done What testing was considered but not performed or refused? (CT, X-rays, U/S, labs)? Why? @ -None What meds were considered but not given or refused? Why? @ -None Did you discuss the management of the patient with other professionals (professionals i.e. , PA, TOPOLOGY PROFESSOR, lab, RT, psych nurse, psychologist social, land examiner, teacher, sailing officer, transplant case manager)? Give summary @ -No Was smoking cessation discussed for >3mins.? @ -No Was critical care preformed (if so, how long)? @ -No Were there social determinants of health that impacted care today? How? (Homelessness, low income, unemployed, alcoholism, drug addiction, tr ansportation, low edu. Level, literacy, decrease access to med. care, penitentiary, rehab)? @ -No Was there de-escalation of care discussed even if they declined (Discuss DNR or withdrawal of care, Hospice)? DNR status @ -No What co-morbidities impacted this encounter? (DM, HTN, Smoking, COPD, CAD, Cancer, CVA, ARF, Chemo, Hep., AIDS, mental health diagnosis, sleep apnea, morbid obesity)? @ -None Was patient admitted / discharged? Hospital course, mention meds given and route, prescriptions, significant lab abnormalities, going to OR and other pertinent info. @ -Discharge. Lab work was unremarkable. Abdominal CT revealed bilateral nonobstructing nephrolithiasis at 3 mm. Patient notes nausea and pain relief with IV Zofran, Toradol and Dilaudid. IV normal saline also provided. Patient discharged with Zofran starter pack and work note. Flomax sent to pharmacy. Undiagnosed new problem with uncertain prognosis? @ -No Drug Therapy requiring intensive monitoring for toxicity (Heparin, Nitro, Ins ulin, Cardizem)? @ -No Were any procedures done? @ -No Diagnosis/symptom? @ -Nonobstructing bilateral nephrolithiasis Acute, or Chronic, or Acute on Chronic? @ -Acute Uncomplicated (without systemic symptoms) or Complicated (systemic symptoms)? @ -Uncomplicated Side effects of treatment? @ -No Exacerbation, Progression, or Severe Exacerbation? @ -No Poses a threat to life or bodily function? How? (Chest pain, USA, [place], pneumonia, PE, COPD, DKA, ARF, appy, cholecystitis, CVA, Diverticulitis, Homicidal, Suicidal, threat to staff... and all critical care pts) @ -No - Lab Data Result diagrams: 12/24/23 12:50 12/24/23 12:50 Lab Results 12/24/23 12/24/23 12/24/23 Range/Units 12:50 12:50 12:50 WBC 6.7 (3.8-10.6) k/uL RBC 4.36 (3.80-5.40) m/uL Hgb 13.9 (11.4-16.0) gm/dL Hct 40.8 (34.0-46.0) % MCV 93.6 (80.0-100.0) fL MCH 31.9 (25.0-35.0) pg MCHC 34.1 (31.0-37.0) g/dL RDW 13.1 (11.5-15.5) % Plt Count 291 (150-450) k/uL MPV 7.6 Neutrophils % 56 % Lymphocytes % 33 % Monocytes % 6 % Eosinophils % 3 % Basophils % 1 % Neutrophils # 3.8 (1.3-7.7) k/uL Lymphocytes # 2.2 (1.0-4.8) k/uL Monocytes # 0.4 (0-1.0) k/uL Eosinophils # 0.2 (0-0.7) k/uL Basophils # 0.0 (0-0.2) k/uL Sodium 137 (137-145) mmol/L Potassium 4.8 (3.5-5.1) mmol/L Chloride 107 (98-107) mmol/L Carbon Dioxide 25 (22-30) mmol/L Anion Gap 5 mmol/L BUN 17 (7-17) mg/dL Creatinine 0.63 (0.52-1.04) mg/dL Est GFR (CKD-EPI)AfAm >90 (>60 ml/min/1.73 sqM) Est GFR (CKD-EPI)NonAf >90 (>60 ml/min/1.73 sqM) Glucose 89 (74-99) mg/dL Plasma Lactic Acid Beau 1.2 (0.7-2.0) mmol/L Calcium 8.9 (8.4-10.2) mg/dL Total Bilirubin 0.5 (0.2-1.3) mg/dL AST 47 H (14-36) U/L ALT 55 H (4-34) U/L Alkaline Phosphatase 80 (38-126) U/L Troponin I (0.000-0.034) ng/mL Total Protein 7.8 (6.3-8.2) g/dL Albumin 4.6 (3.5-5.0) g/dL Amylase 46 (30-110) U/L Lipase 54 (23-300) U/L Urine Color Urine Appearance (Clear) Urine pH (5.0-8.0) Ur Specific Grubbs (1.001-1.035) Urine Protein (Negative) Urine Glucose (UA) (Negative) Urine Ketones (Negative) Urine Blood (Negative) Urine Nitrite (Negative) Urine Bilirubin (Negative) Urine Urobilinogen (<2.0) mg/dL Ur Leukocyte Esterase (Negative) 12/24/23 12/24/23 Range/Units 12:50 12:54 WBC (3.8-10.6) k/uL RBC (3.80-5.40) m/uL Hgb (11.4-16.0) gm/dL Hct (34.0-46.0) % MCV (80.0-100.0) fL MCH (25.0-35.0) pg MCHC (31.0-37.0) g/dL RDW (11.5-15.5) % Plt Count (150-450) k/uL MPV Neutrophils % % Lymphocytes % % Monocytes % % Eosinophils % % Basophils % % Neutrophils # (1.3-7.7) k/uL Lymphocytes # (1.0-4.8) k/uL Monocytes # (0-1.0) k/uL Eosinophils # (0-0.7) k/uL Basophils # (0-0.2) k/uL Sodium (137-145) mmol/L Potassium (3.5-5.1) mmol/L Chloride (98-107) mmol/L Carbon Dioxide (22-30) mmol/L Anion Gap mmol/L BUN (7-17) mg/dL Creatinine (0.52-1.04) mg/dL Est GFR (CKD-EPI)AfAm (>60 ml/min/1.73 sqM) Est GFR (CKD-EPI)NonAf (>60 ml/min/1.73 sqM) Glucose (74-99) mg/dL Plasma Lactic Acid Beau (0.7-2.0) mmol/L Calcium (8.4-10.2) mg/dL Total Bilirubin (0.2-1.3) mg/dL AST (14-36) U/L ALT (4-34) U/L Alkaline Phosphatase (38-126) U/L Troponin I <0.012 (0.000-0.034) ng/mL Total Protein (6.3-8.2) g/dL Albumin (3.5-5.0) g/dL Amylase (30-110) U/L Lipase (23-300) U/L Urine Color Colorless Urine Appearance Clear (Clear) Urine pH 7.0 (5.0-8.0) Ur Specific [place]ubbs 1.007 (1.001-1.035) Urine Protein Negative (Negative) Urine Glucose (UA) Negative (Negative) Urine Ketones Negative (Negative) Urine Blood Negative (Negative) Urine Nitrite Negative (Negative) Urine Bilirubin Negative (Negative) Urine Urobilinogen <2.0 (<2.0) mg/dL Ur Leukocyte Esterase Negative (Negative) Disposition Clinical Impression: Acute abdomen, Nephrolithiasis Disposition: HOME SELF-CARE Condition: Good Instructions (If sedation given, give patient instructions): Acute Abdominal Pain (ED) Prescriptions: Tamsulosin [Flomax] 0.4 mg PO DAILY #10 cap Is patient prescribed a controlled substance at d/c from ED?: No Referrals: Tiffanie Graham MD [Primary Care Provider] - 1-2 days Time of Disposition: 14:20
[2023-12-24] MEDS: KETOROLAC 15 MG/ML 1 ML VIAL IVP STA ×2 (12:44→14:02)
[2023-12-24] MEDS: SODIUM CHLORIDE 0.9% 500 ML 500 ML IV STA (12:44)
[2023-12-24] MEDS: MAG HYDROX/AL HYDROX/SIMETH 30 ML, HYOSCYAMINE ELIXIR 10 ML, LIDOCAINE VISCOUS 2% 10 ML PO STA ×2 (12:45→14:32)
[2023-12-24] MEDS: HYDROmorphone 0.5 MG/0.5 ML SYRINGE IVP STA (12:45)
[2023-12-24] MEDS: ONDANSETRON 4 MG/2 ML VIAL IVP STA ×2 (12:47→14:03)
[2023-12-24 13:02] LABS: Basophils % (A) 1 %; Eosinophils # (A) 0.2 k/uL (0-0.7); Eosinophils % (A) 3 %; HCT 40.8 % (34.0-46.0); HGB 13.9 gm/dL (11.4-16.0); Lymphocytes # (A) 2.2 k/uL (1.0-4.8); Lymphocytes % (A) 33 %; MCH 31.9 pg (25.0-35.0); MCHC 34.1 g/dL (31.0-37.0); MCV 93.6 fL (80.0-100.0); Mean Platelet Volume 7.6; Monocytes # (A) 0.4 k/uL (0-1.0); Monocytes % (A) 6 %; Neutrophils # (A) 3.8 k/uL (1.3-7.7); Neutrophils % (A) 56 %; Platelet Count 291 k/uL (150-450); RBC 4.36 m/uL (3.80-5.40); RDW 13.1 % (11.5-15.5); WBC 6.7 k/uL (3.8-10.6)
[2023-12-24 13:03] LABS: Appearance,Urine Clear (Clear); Bilirubin,Urine Negative (Negative); Blood,Urine Negative (Negative); Color,Urine Colorless; Glucose,Urine (UA) Negative (Negative); Ketones,Urine Negative (Negative); Leukocyte Esterase,Urine Negative (Negative); Nitrite,Urine Negative (Negative); Protein,Urine Negative (Negative); Specific Gravity,Urine 1.007 (1.001-1.035); Urobilinogen,Urine <2.0 mg/dL (<2.0)
[2023-12-24 13:15] LABS: ALT 55 U/L (4-34); AST 47 U/L (14-36); African American GFR (CKD) >90 (>60 ml/min/1.73 sqM); Albumin 4.6 g/dL (3.5-5.0); Alkaline Phosphatase 80 U/L (38-126); Amylase 46 U/L (30-110); Anion Gap 5 mmol/L; Blood Urea Nitrogen 17 mg/dL (7-17); Calcium 8.9 mg/dL (8.4-10.2); Carbon Dioxide 25 mmol/L (22-30); Chloride 107 mmol/L (98-107); Glucose 89 mg/dL (74-99); Lipase 54 U/L (23-300); Non-African American GFR(CKD) >90 (>60 ml/min/1.73 sqM); Potassium 4.8 mmol/L (3.5-5.1); Sodium 137 mmol/L (137-145); Total Bilirubin 0.5 mg/dL (0.2-1.3); Total Protein 7.8 g/dL (6.3-8.2)
--- NOTE | 2023-12-24 13:28 | CT ---
EXAMINATION TYPE: CT abdomen pelvis wo con DATE OF EXAM: 12/24/2023 1:09 PM COMPARISON: CT abdomen pelvis most recent from 09/04/2023 CLINICAL INDICATION: Female, 28 years old with history of abdominal pain, RUQ to flank/back; RUQ pain TECHNIQUE: Axial CT abdomen pelvis wo con;Sagittal and coronal reformats were created on a separate workstation. Contrast used: mL of , (none if empty) Oral contrast used: without Oral Contrast (none if empty) CT DLP: 585 mGycm, Automated exposure control for dose reduction was used. FINDINGS: LOWER CHEST: Unremarkable ABDOMEN LIVER: Hepatic steatosis with focal fatty sparing near the gallbladder fossa. GALLBLADDER AND BILE DUCTS: Gallbladder surgically absent. PANCREAS: Unremarkable. SPLEEN: Unremarkable. ADRENAL GLANDS: Unremarkable. KIDNEYS AND URETERS: 3 mm nonobstructing right renal calculus. 3 mm nonobstructing left renal calculu s. No evidence for hydronephrosis. PELVIS BLADDER: No evidence for wall thickening or mass given limitations of exam. REPRODUCTIVE: Left ovarian dominant follicle measuring 2.6 cm. ABDOMEN & PELVIS STOMACH AND BOWEL: No evidence of bowel obstruction. The appendix is surgically absent. PERITONEUM/RETROPERITONEUM: No evidence of pneumoperitoneum or free fluid. Is no mesentery. VASCULATURE: No evidence of aortic aneurysm. MUSCULOSKELETAL: No acute osseous abnormalities LYMPH NODES: No gross evidence for lymphadenopathy. SOFT TISSUE/ABDOMINAL WALL: Unremarkable IMPRESSION: 1. No evidence of acute abdominal process. 2. Bilateral renal calculi which are nonobstructing No evidence for obstructive uropathy. 3. Hepatic steatosis with focal fatty sparing. 4. Nonspecific Che mesentery which can be seen in sclerosing panniculitis. Findings similar to 09/03. [facility], , 12/24/2023 1:26 PM
[2023-12-24] MEDS: HYDROmorphone 1 MG/ML 1 ML SYRINGE IVP STA (14:03)
[2023-12-24] MEDS: TAMSULOSIN 0.4 MG CAP.ER.24H PO STA (14:32)
[2023-12-24] MEDS: ONDANSETRON 4 MG ODT STARTER PACK 2 TAB BTL PO STA (14:32)
[2023-12-24] MEDS: ACET/COD 300 MG/30 MG STARTER PACK 6 TAB BTL PO STA (14:32)
[2023-12-24 14:40] VITALS: BP 133/92; PULSE 109; RESP 18; TEMP 98
== END 2023-12-24 14:56 | disposition home or self-care (01) ==
LOC: EC 11:12
CPT/HCPCS: 36415; 74176; 80053; 81003; 82150; 83605; 83690; 84484; 85025; 93005; 96361; 96374; 96375; 96376; 99284

== ENCOUNTER → 2023-12-24 | Outpatient (CLI) | payer MEDICAID, OTHER | END | disposition home or self-care (01) | LOC: EC 09:49 | PROVIDERS: ATTEND Orthopaedic Surgery | DX: M25.562 Pain in left knee (principal) | CPT/HCPCS: 36415; 84702 ==

== ENCOUNTER → 2023-12-27 | Outpatient (CLI) | payer MEDICAID, OTHER | END | disposition home or self-care (01) | LOC: LABMAIN 09:24 | PROVIDERS: ATTEND Physician Assistant | DX: R10.0 Acute abdomen (principal) | CPT/HCPCS: 84702 ==

== ENCOUNTER 2023-12-29 08:52 | Emergency (ER) | payer MEDICAID, OTHER ==
--- NOTE | 2023-12-29 09:27 | ED ---
GI Bleed HPI - General Chief complaint: GI Bleed Stated complaint: ABD Pain, rectal bleeding Time Seen by Provider: 12/29/23 08:53 Source: patient, RN notes reviewed Mode of arrival: ambulatory Limitations: no limitations - History of Present Illness Initial comments: This is a 28-year-old female who presents to the emergency department for abdominal pain and rectal bleeding. States that last night she started developing pain across the lower abdomen. She then had multiple episodes of rectal bleeding. States that she is passing clots with this. This is bright red blood. Not taking any blood thinners. Denies any history of rectal bleeding in the past. Denies any fevers or chills. She has associated nausea but no vomiting. She was able to control the nausea with the Zofran she has at home. - Related Data Home Medications Medication Instructions Recorded Confirmed Albuterol Nebulized [Ventolin 2.5 mg INHALATION RT-QID PRN 05/18/22 12/13/23 Nebulized] Cholecalciferol [Vitamin D3 (25 25 mcg PO DAILY 04/25/23 12/13/23 Mcg = 1000 Iu)] Omeprazole 40 mg PO DAILY@1600 05/13/23 12/13/23 Ashwagandha 700 mg PO DAILY 11/24/23 12/13/23 Desvenlafaxine Succinate [Pristiq 50 mg PO DAILY 11/24/23 12/13/23 ER] Famotidine [Pepcid] 20 mg PO DAILY PRN 11/24/23 12/13/23 Nortriptyline [Pamelor] 50 mg PO DAILY 11/24/23 12/13/23 diazePAM [Valium] 5 mg PO BID 11/25/23 12/13/23 Brexpiprazole [Rexulti] 1 mg PO DAILY 12/13/23 12/13/23 Cyclobenzaprine [Flexeril] 5 mg PO TID PRN 12/13/23 12/13/23 Previous Rx's Medication Instructions Recorded Montelukast [Singulair] 10 mg PO DAILY #20 tab 08/03/23 EPINEPHrine (Auto Inject) [Epipen] 0.3 mg IM ONCE PRN #1 each 11/17/23 diphenhydrAMINE [Benadryl] 25 mg PO TID PRN #21 capsule 11/17/23 Levothyroxine Sodium 150 mcg PO DAILY #30 tab 11/22/23 Aspirin 81 mg PO DAILY #30 tab 11/25/23 Ibuprofen [Motrin] 800 mg PO Q8H #21 tab 11/25/23 Metoprolol Succinate [Metoprolol See Rx Instructions .ROUTE 12/14/23 Succinate ER] .COMPLEX 30 Days #90 tab Tamsulosin [Flomax] 0.4 mg PO DAILY #10 cap 12/24/23 Hydrocortisone Suppository 25 mg RECTAL BID 14 Days #28 12/29/23 [Anusol-Hc] suppositor Phenylephrine HCl/[place] Butter 1 supp RECTAL QID PRN #24 12/29/23 [Preparation H Suppository] suppositor oxyCODONE-APAP 10-325MG [Percocet 1 tab PO Q4HR PRN 3 Days #18 tab 12/29/23 10-325 mg] Allergies Allergy/AdvReac Type Severity Reaction Status Date / Time amoxicillin Allergy Rash/Hives Verified 12/29/23 08:56 banana Allergy Anaphylaxis Verified 12/29/23 08:56 nickel Allergy Rash/Hives Verified 12/29/23 08:56 sulfamethoxazole Allergy Rash/Hives Verified 12/29/23 08:56 [From Septra] trimethoprim [From Septra] Allergy Rash/Hives Verified 12/29/23 08:56 corn AdvReac Diarrhea Verified 12/29/23 08:56 Review of Systems ROS Statement: Those systems with pertinent positive or pertinent negative responses have been documented in the HPI. ROS Other: All systems not noted in ROS Statement are negative. 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, History of Any Multi-Drug Resistant Organisms: None Reported Past Surgical History: Appendectomy, Section, Cholecystectomy Additional Past Surgical History / Comment(s): thyroidectomy 09/2017, Laparoscopic exam w/ cautery endometriosis 2012 Past Anesthesia/Blood Transfusion Reactions: No Reported Reaction Past Psychological History: Anxiety, Depression Smoking Status: Never smoker Past Alcohol Use History: Occasional, Rare Past Drug Use History: None Reported - Past Family History Mother Family Medical History: Asthma Father Family Medical History: Coronary Artery Disease (CAD), CVA/TIA, Diabetes Mellitus Brother(s) Family Medical History: Asthma General Exam Limitations: no limitations General appearance: alert, in distress Head exam: Present: atraumatic, normocephalic, normal inspection Respiratory exam: Present: normal lung sounds bilaterally. Absent: respiratory distress, wheezes, rales, rhonchi, stridor Cardiovascular Exam: Present: regular rate, normal rhythm, normal heart sounds. Absent: systolic murmur, diastolic murmur, rubs, gallop, clicks GI/Abdominal exam: Present: soft, tenderness (Lower abdomen). Absent: distended Neurological exam: Present: alert, oriented X3, CN II-XII intact Psychiatric exam: Present: normal affect, normal mood Skin exam: Present: warm, dry, intact, normal color. Absent: rash Course Vital Signs 12/29/23 12/29/23 12/29/23 08:53 09:56 11:12 Temperature 98.7 F 98.3 F 98.1 F Pulse Rate 105 H 101 H 104 H Respiratory 18 12 12 Rate Blood Pressure 134/83 117/86 129/96 O2 Sat by Pulse 97 95 96 Oximetry 12/29/23 12/29/23 12/29/23 12:06 13:20 15:46 Temperature 98.2 F Pulse Rate 116 H 111 H 101 H Respiratory 14 14 18 Rate Blood Pressure 142/108 126/105 120/89 O2 Sat by Pulse 96 97 98 Oximetry Medical Decision Making - Medical Decision Making This is a 28 year old female who presents to the emergency department for abdominal pain and rectal bleeding. Was pt. sent in by a medical professional or institution? @ -No Did you speak to anyone other than the patient for history? @ -No Did you review nursing and triage notes? @ -Yes, and I agree, it is accurate with regards to the patient's symptoms. Were old charts reviewed? @ -No Differential Diagnosis? @ -Differential Abdominal Pain Women: Appendicitis, Cholecystitis, diverticulosis, ischemic bowel, pancreatitis, hepatitis, UTI, gastroenteritis, AAA, incarcerated hernia, bowel obstruction, constipation, inflammatory bowel, hepatitis, peptic ulcer disease, splenic infarction, perforated viscus, vulvitis, ovarian torsion, PID, kidney stone, placenta abruption, this is not meant to be an all-inclusive list EKG interpreted by me (3pts min.)? @ -Not obtained X-rays interpreted by me (1pt min.)? @ -Not obtained CT interpreted by me (1pt min.)? @ -CTA of the abdomen and pelvis obtained. My interpretation identifies no bowel wall thickening or free air. U/S interpreted by me (1pt. min.)? @ -Not obtained What testing was considered but not performed? (CT, X-rays, U/S, labs)? Why? @ -None What meds were considered but not given? Why? @ -None Did you discuss the management of the patient with other professionals? @ -No Did you reconcile home meds? @ -No Was smoking cessation discussed for >3mins.? @ -No Was critical care preformed (if so, how long)? @ -No Were there social determinants of health that impacted care today? How? (Homelessness, low income, unemployed, alcoholism, drug addiction, transportation, low edu. Level, literacy, decrease access to med. care, retirement, rehab)? @ -No Was there de-escalation of care discussed even if they declined? (Discuss DNR or withdrawal of care, Hospice)? @ -No What co-morbidities impacted this encounter? (DM, HTN, Smoking, COPD, CAD, Cancer, CVA, Hep., AIDS, mental health diagnosis, sleep apnea, morbid obesity)? @ -None Was patient admitted / discharged? @ -Discharged. Lab work demonstrates signs of dehydration and was otherwise unremarkable. Hemoglobin within normal limits. CTA of the abdomen and pelvis obtained revealing no active GI bleed or other acute process. Discussed the po ssibility of internal hemorrhoids contributing to the bleeding. Prescription for phenylephrine and hydrocortisone suppositories provided. Pain medication refilled. Advised follow-up with GI or general surgery to discuss a colonoscopy as well as with her primary care provider. Patient discharged home in stable condition. Case discussed with ED attending Dr. Hoffman. Return precautions reviewed in depth, the patient is instructed to return to the emergency department with any new, worsening, or concerning symptoms. Patient verbalized understanding. Undiagnosed new problem with uncertain prognosis? @ -None Drug Therapy requiring intensive monitoring for toxicity (Heparin, Nitro, Insulin, Cardizem)? @ -None Were any procedures done? @ -None Diagnosis/symptom? @ -Abdominal pain, rectal bleeding Acute, or Chronic, or Acute on Chronic? @ -Acute Uncomplicated (without systemic symptoms) or Complicated (systemic symptoms)? @ -Uncomplicated Side effects of treatment? @ -None Exacerbation, Progression, or Severe Exacerbation] @ -Not applicable Poses a threat to life or bodily function? @ -No - Lab Data Result diagrams: 12/29/23 09:15 12/29/23 09:15 Lab Results 12/29/23 12/29/23 12/29/23 Range/Units 09:15 09:15 09:15 WBC 8.1 (3.8-10.6) k/uL RBC 4.50 (3.80-5.40) m/uL Hgb 14.0 (11.4-16.0) gm/dL Hct 41.7 (34.0-46.0) % MCV 92.7 (80.0-100.0) fL MCH 31.1 (25.0-35.0) pg MCHC 33.5 (31.0-37.0) g/dL RDW 13.2 (11.5-15.5) % Plt Count 295 (150-450) k/uL MPV 7.0 Neutrophils % 62 % Lymphocytes % 28 % Monocytes % 5 % Eosinophils % 2 % Basophils % 1 % Neutrophils # 5.1 (1.3-7.7) k/uL Lymphocytes # 2.2 (1.0-4.8) k/uL Monocytes # 0.4 (0-1.0) k/uL Eosinophils # 0.2 (0-0.7) k/uL Basophils # 0.1 (0-0.2) k/uL PT 10.1 (10.0-12.5) sec INR 0.9 (<1.2) APTT 24.5 (22.0-30.0) sec Sodium 137 (137-145) mmol/L Potassium 4.4 (3.5-5.1) mmol/L Chloride 109 H (98-107) mmol/L Carbon Dioxide 21 L (22-30) mmol/L Anion Gap 7 mmol/L BUN 20 H (7-17) mg/dL Creatinine 0.72 (0.52-1.04) mg/dL Est GFR (CKD-EPI)AfAm >90 (>60 ml/min/1.73 sqM) Est GFR (CKD-EPI)NonAf >90 (>60 ml/min/1.73 sqM) Glucose 110 H (74-99) mg/dL Plasma Lactic Acid Beau (0.7-2.0) mmol/L Calcium 9.1 (8.4-10.2) mg/dL Magnesium 2.0 (1.6-2.3) mg/dL Total Bilirubin 0.4 (0.2-1.3) mg/dL AST 33 (14-36) U/L ALT 42 H (4-34) U/L Alkaline Phosphatase 85 (38-126) U/L Total Protein 7.6 (6.3-8.2) g/dL Albumin 4.6 (3.5-5.0) g/dL HCG, Quant <2.4 mIU/mL Urine Color Urine Appearance (Clear) Urine pH (5.0-8.0) Ur Specific [place] (1.001-1.035) Urine Protein (Negative) Urine Glucose (UA) (Negative) Urine Ketones (Negative) Urine Blood (Negative) Urine Nitrite (Negative) Urine Bilirubin (Negative) Urine Urobilinogen (<2.0) mg/dL Ur Leukocyte Esterase (Negative) Urine HCG, Qual (Not Detectd) 12/29/23 12/29/23 12/29/23 Range/Units 09:15 09:15 09:15 WBC (3.8-10.6) k/uL RBC (3.80-5.40) m/uL Hgb (11.4-16.0) gm/dL Hct (34.0-46.0) % MCV (80.0-100.0) fL MCH (25.0-35.0) pg MCHC (31.0-37.0) g/dL RDW (11.5-15.5) % Plt Count (150-450) k/uL MPV Neutrophils % % Lymphocytes % % Monocytes % % Eosinophils % % Basophils % % Neutrophils # (1.3-7.7) k/uL Lymphocytes # (1.0-4.8) k/uL Monocytes # (0-1.0) k/uL Eosinophils # (0-0.7) k/uL Basophils # (0-0.2) k/uL PT (10.0-12.5) sec INR (<1.2) APTT (22.0-30.0) sec Sodium (137-145) mmol/L Potassium (3.5-5.1) mmol/L Chloride (98-107) mmol/L Carbon Dioxide (22-30) mmol/L Anion Gap mmol/L BUN (7-17) mg/dL Creatinine (0.52-1.04) mg/dL Est GFR (CKD-EPI)AfAm (>60 ml/min/1.73 sqM) Est GFR (CKD-EPI)NonAf (>60 ml/min/1.73 sqM) Glucose (74-99) mg/dL Plasma Lactic Acid Beau 1.4 (0.7-2.0) mmol/L Calcium (8.4-10.2) mg/dL Magnesium (1.6-2.3) mg/dL Total Bilirubin (0.2-1.3) mg/dL AST (14-36) U/L ALT (4-34) U/L Alkaline Phosphatase (38-126) U/L Total Protein (6.3-8.2) g/dL Albumin (3.5-5.0) g/dL HCG, Quant mIU/mL Urine Color Colorless Urine Appearance Clear (Clear) Urine pH 6.5 (5.0-8.0) Ur Specific [place] 1.016 (1.001-1.035) Urine Protein Negative (Negative) Urine Glucose (UA) Negative (Negative) Urine Ketones Negative (Negative) Urine Blood Negative (Negative) Urine Nitrite Negative (Negative) Urine Bilirubin Negative (Negative) Urine Urobilinogen <2.0 (<2.0) mg/dL Ur Leukocyte Esterase Negative (Negative) Urine HCG, Qual Not Detected (Not Detectd) - Radiology Data Radiology results: report reviewed, image reviewed Disposition Clinical Impression: Rectal bleeding, Abdominal pain Disposition: HOME SELF-CARE Condition: Good Instructions (If sedation given, give patient instructions): Rectal Bleeding (ED), Abdominal Pain (ED) Additional Instructions: Return to the emergency department with any new, worsening, or concerning symptoms. Use the hydrocortisone suppositories twice daily for 2 weeks. Use the phenylephrine suppositories up to 4 times daily. This is best used after a bowel movement. Follow-up with either gastroenterology or general surgery for a colonoscopy. Follow up with your primary care provider in 1-2 days. Prescriptions: Hydrocortisone Suppository [Anusol-Hc] 25 mg RECTAL BID 14 Days #28 suppositor oxyCODONE-APAP 10-325MG [Percocet 10-325 mg] 1 tab PO Q4HR PRN 3 Days #18 tab PRN Reason: Pain Phenylephrine HCl/[place] Butter [Preparation H Suppository] 1 supp RECTAL QID PRN #24 suppositor PRN Reason: Hemorrhoids Is patient prescribed a controlled substance at d/c from ED?: Yes When asked, does pt state using other controlled substances?: No If prescribed controlled substance>3 days was MAPS reviewed?: Prescribed <3 Days Referrals: Tiffanie Graham MD [Primary Care Provider] - 1-2 days Time of Disposition: 15:03
[2023-12-29] MEDS: HYDROmorphone 1 MG/ML 1 ML SYRINGE IVP STA ×3 (09:42→15:41)
[2023-12-29] MEDS: SODIUM CHLORIDE 0.9% 500 ML 500 ML IV STA (09:49)
[2023-12-29 09:50] LABS: Basophils # (A) 0.1 k/uL (0-0.2); Basophils % (A) 1 %; Eosinophils # (A) 0.2 k/uL (0-0.7); Eosinophils % (A) 2 %; HCT 41.7 % (34.0-46.0); Lymphocytes # (A) 2.2 k/uL (1.0-4.8); Lymphocytes % (A) 28 %; MCH 31.1 pg (25.0-35.0); MCHC 33.5 g/dL (31.0-37.0); MCV 92.7 fL (80.0-100.0); Monocytes # (A) 0.4 k/uL (0-1.0); Monocytes % (A) 5 %; Neutrophils # (A) 5.1 k/uL (1.3-7.7); Neutrophils % (A) 62 %; Platelet Count 295 k/uL (150-450); RDW 13.2 % (11.5-15.5); WBC 8.1 k/uL (3.8-10.6)
[2023-12-29 10:06] LABS: ALT 42 U/L (4-34); AST 33 U/L (14-36); African American GFR (CKD) >90 (>60 ml/min/1.73 sqM); Albumin 4.6 g/dL (3.5-5.0); Alkaline Phosphatase 85 U/L (38-126); Anion Gap 7 mmol/L; Blood Urea Nitrogen 20 mg/dL (7-17); Calcium 9.1 mg/dL (8.4-10.2); Carbon Dioxide 21 mmol/L (22-30); Chloride 109 mmol/L (98-107); Glucose 110 mg/dL (74-99); Non-African American GFR(CKD) >90 (>60 ml/min/1.73 sqM); Potassium 4.4 mmol/L (3.5-5.1); Sodium 137 mmol/L (137-145); Total Bilirubin 0.4 mg/dL (0.2-1.3); Total Protein 7.6 g/dL (6.3-8.2)
[2023-12-29 10:09] LABS: INR 0.9 (<1.2); Partial Thromboplastin Time 24.5 sec (22.0-30.0); Prothrombin Time 10.1 sec (10.0-12.5)
[2023-12-29 10:20] LABS: HCG,Quantitative Serum <2.4 mIU/mL
[2023-12-29 10:31] LABS: Appearance,Urine Clear (Clear); Bilirubin,Urine Negative (Negative); Blood,Urine Negative (Negative); Color,Urine Colorless; Glucose,Urine (UA) Negative (Negative); Ketones,Urine Negative (Negative); Leukocyte Esterase,Urine Negative (Negative); Nitrite,Urine Negative (Negative); PH, Urine 6.5 (5.0-8.0); Protein,Urine Negative (Negative); Specific Gravity,Urine 1.016 (1.001-1.035); Urobilinogen,Urine <2.0 mg/dL (<2.0)
--- NOTE | 2023-12-29 11:17 | CT ---
CTA abdomen and pelvis with contrast. HISTORY: Abdominal pain with rectal bleeding. COMPARISON: CT abdomen and pelvis dated 12/24/2023. TECHNIQUE: Multiple axial images are obtained through the abdomen and pelvis before and after the une ventful administration of nonionic IV contrast. The exam was performed cord injury department CTA pro tocol. FINDINGS: The visualized lung bases are clear. There is surgical absence of the gallbladder. There is moderate hepatic steatosis. There is no focal mass or organomegaly involving the liver, pancreas, spleen or adrenal glands. There is no solid renal mass or hydronephrosis. There 2 to 3 tiny nonobstructing right renal calcific ations. The caliber of the abdominal aorta is normal. No retroperitoneal adenopathy or hemorrhage. There is no aortic dissection. The origins of the mesenteric arteries and renal arteries are widely patent and there is no evidence of a acute GI bleed. There is no pelvic mass, free fluid, abscess or adenopathy. The osseous structures are intact. IMPRESSION: 1. No abdominal aortic aneurysm, dissection or acute GI bleed. 2. 2-3 tiny nonobstructing right renal calcification. 3. Hepatic steatosis. [facility], , 12/29/2023 11:15 AM
[2023-12-29] MEDS: MORPHINE SULFATE 4 MG/ML SYRINGE IVP STA (11:29)
[2023-12-29] MEDS: HYDROCORTISONE SUPPOSITORY 25 MG SUPP RECTAL STA (12:01)
[2023-12-29 12:10] VITALS: TEMP 98.2
[2023-12-29] MEDS: diphenhydrAMINE 50 MG/ML 1 ML VIAL IVP STA (12:15)
[2023-12-29 15:47] VITALS: BP 120/89; PULSE 101; RESP 18
== END 2023-12-29 15:47 | disposition home or self-care (01) ==
LOC: EC 08:52
DX: K62.5 Hemorrhage of anus and rectum (principal); K76.0 Fatty (change of) liver, not elsewhere classified; Z88.0 Allergy status to penicillin; Z88.1 Allergy status to other antibiotic agents; Z88.2 Allergy status to sulfonamides; Z91.018 Allergy to other foods; Z88.8 Allergy status to other drugs, medicaments and biological substances
CPT/HCPCS: 36415; 80053; 83605; 83735; 85025; 85610; 85730; 81003; 81025; 84702; 74174; 99285; 96374; 96375 ×2; 96376 ×2; 96361; J2270; J1200; J1171; Q9967

== ENCOUNTER 2024-02-15 15:22 | Emergency (ER) | payer MEDICAID, OTHER ==
[2024-02-15] MEDS: SODIUM CHLORIDE 0.9% 1,000 ML IV STA (15:51)
--- NOTE | 2024-02-15 16:19 | ED ---
General Adult HPI - General Chief complaint: Abdominal Pain Stated complaint: Abdominal Pain Time Seen by Provider: 02/15/24 15:37 Source: patient Mode of arrival: ambulatory Limitations: no limitations - History of Present Illness Initial comments: 28-year-old female presenting today for left flank pain x 2 days. Patient states she has a history of frequent kidney stones requiring stent placement. 2 days ago she went to a freestanding ER and had ultrasound performed and was told that there was "a blockage" in her left kidney and discharged home with a muscle relaxant. Patient states muscle asked is not helping her pain and she now has frequency and dysuria worsening flank pain. Patient's last pain medication was early this morning. She states Toradol does make her arm burn. She states she had an episode of emesis prior to arrival unsure if there is blood or bilious bile in it. Denies fevers. Denies vaginal bleeding or discharge. Date of LMP was February 01. - Related Data Home Medications Medication Instructions Recorded Confirmed Albuterol Nebulized [Ventolin 2.5 mg INHALATION RT-QID PRN 05/18/22 12/13/23 Nebulized] Cholecalciferol [Vitamin D3 (25 25 mcg PO DAILY 04/25/23 12/13/23 Mcg = 1000 Iu)] Omeprazole 40 mg PO DAILY@1600 05/13/23 12/13/23 Ashwagandha 700 mg PO DAILY 11/24/23 12/13/23 Desvenlafaxine Succinate [Pristiq 50 mg PO DAILY 11/24/23 12/13/23 ER] Famotidine [Pepcid] 20 mg PO DAILY PRN 11/24/23 12/13/23 Nortriptyline [Pamelor] 50 mg PO DAILY 11/24/23 12/13/23 diazePAM [Valium] 5 mg PO BID 11/25/23 12/13/23 Brexpiprazole [Rexulti] 1 mg PO DAILY 12/13/23 12/13/23 Cyclobenzaprine [Flexeril] 5 mg PO TID PRN 12/13/23 12/13/23 Previous Rx's Medication Instructions Recorded Montelukast [Singulair] 10 mg PO DAILY #20 tab 08/03/23 EPINEPHrine (Auto Inject) [Epipen] 0.3 mg IM ONCE PRN #1 each 11/17/23 diphenhydrAMINE [Benadryl] 25 mg PO TID PRN #21 capsule 11/17/23 Levothyroxine Sodium 150 mcg PO DAILY #30 tab 11/22/23 Aspirin 81 mg PO DAILY #30 tab 11/25/23 Ibuprofen [Motrin] 800 mg PO Q8H #21 tab 11/25/23 Metoprolol Succinate [Metoprolol See Rx Instructions .ROUTE 12/14/23 Succinate ER] .COMPLEX 30 Days #90 tab Tamsulosin [Flomax] 0.4 mg PO DAILY #10 cap 12/24/23 Phenylephrine HCl/[place] Butter 1 supp RECTAL QID PRN #24 12/29/23 [Preparation H Suppository] suppositor Orphenadrine [Norflex] 100 mg PO Q12H PRN #30 tab 02/16/24 Allergies Allergy/AdvReac Type Severity Reaction Status Date / Time amoxicillin Allergy Rash/Hives Verified 12/29/23 08:56 banana Allergy Anaphylaxis Verified 12/29/23 08:56 nickel Allergy Rash/Hives Verified 12/29/23 08:56 sulfamethoxazole Allergy Rash/Hives Verified 12/29/23 08:56 [From Septra] trimethoprim [From Octra] Allergy Rash/Hives Verified 12/29/23 08:56 corn AdvReac Diarrhea Verified 12/29/23 08:56 Review of Systems ROS Statement: Those systems with pertinent positive or pertinent negative responses have been documented in the HPI. ROS Other: All systems not noted in ROS Statement are negative. 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 poly area supervisor, History of Any Multi-Drug Resistant Organisms: None Reported Past Surgical History: Appendectomy, Section, Cholecystectomy Additional Past Surgical History / Comment(s): thyroidectomy 09/2017, Laparoscopic exam w/ cautery endometriosis 2012 Past Anesthesia/Blood Transfusion Reactions: No Reported Reaction Past Psychological History: Anxiety, Depression Smoking Status: Never smoker Past Alcohol Use History: Occasional, Rare Past Drug Use History: None Reported - Past Family History Mother Family Medical History: Asthma Father Family Medical History: Coronary Artery Disease (CAD), CVA/TIA, Diabetes Mellitus Brother(s) Family Medical History: Asthma General Exam - General Exam Comments Initial Comments: PE: CONSTITUTIONAL: n in mild distress secondary to pain, otherwise nontoxic well appearing SKIN: Warm, dry, no jaundice, hives or petechiae EYES: Pupils are equally round, extraocular movements intact without nystagmus, clear conjunctiva, non-icteric sclera HENT: Normocephalic, atraumatic, moist mucus membranes, oropharynx clear without exudates NECK: , Full range of motion, normal appearance PULMONARY: Clear to auscultation without wheezes, rhonchi, or rales, normal excursion, no accessory muscle use and no stridor CARDIOVASCULAR: Regular rate, rhythm, normal S1 and S2. No appreciated murmurs, rubs or gallops. Strong radial pulses with intact distal perfusion. No lower extremity edema GASTROINTESTINAL: Soft, active bowel sounds throughout, non-tender, non- distended, no palpable masses, no rebound or guarding. No hepatosplenomegaly. Left CVA tenderness GENITOURINARY: MUSCULOSKELETAL: Extremities have no gross deformity, no edema, redness, or swelling. No calf swelling NEUROLOGIC:_a/o x 3, GCS 15, normal mentation and speech. Moves all extremities x 4 without motor or sensory deficit PSYCHIATRIC:_normal mood and affect, thought process is clear and linear Limitations: no limitations Course Vital Signs 02/15/24 02/15/24 02/15/24 15:24 18:33 19:27 Temperature 98.2 F 97.8 F Pulse Rate 120 H 120 H 113 H Respiratory 20 17 18 Rate Blood Pressure 107/74 102/68 O2 Sat by Pulse 98 96 100 Oximetry Medical Decision Making - Medical Decision Making Was pt. sent in by a medical professional or institution (, PA, LENDING CONSULTANT, urgent care, hospital, or fci...) When possible be specific @ -No Did you speak to anyone other than the patient for history (EMS, parent, family, police, friend...)? What history was obtained from this source @ -No Did you review nursing and triage notes (agree or disagree)? Why? @ -I reviewed and agree with nursing and triage notes Were old charts reviewed (outside hosp., previous admission, EMS record, old EKG, old radiological studies, urgent care reports/EKG's, fci records)? Report findings @ -Medical records reviewed CT of the abdomen/pelvis was performed on 12/29/2023 and showed no aortic aneurysm, 2-3 tiny nonobstructing right renal calcifications Differential Diagnosis (chest pain, altered mental status, abdominal pain women, abdominal pain men, vaginal bleeding, weakness, fever, dyspnea, syncope, headache, dizziness, GI bleed, back pain, seizure, CVA, palpatations, mental health, musculoskeletal)? @ -Differential Abdominal Pain Women: Appendicitis, Cholecystitis, diverticulosis, ischemic bowel, pancreatitis, hepatitis, UTI, gastroenteritis, AAA, incarcerated hernia, bowel obstruction, constipation, inflammatory bowel, hepatitis, peptic ulcer disease, splenic infarction, perforated viscus, vulvitis, ovarian torsion, PID, kidney stone, placenta abruption, this is not meant to be an all-inclusive list EKG interpreted by me (3pts min.). @ -As above X-rays interpreted by me (1pt min.). @ -None done CT interpreted by me (1pt min.). @No evidence of hydroneprosis or ureterolithiasis U/S interpreted by me (1pt. min.). @ -None done What testing was considered but not performed or refused? (CT, X-rays, U/S, labs)? Why? @ -None What meds were considered but not given or refused? Why? @ -None Did you discuss the management of the patient with other professionals (professionals i.e. , PA, LENDING CONSULTANT, lab, RT, psych nurse, social research assistant, specimen boss, teacher, chairman president and chief executive officer, case supervisor)? Give summary @ -No Was smoking cessation discussed for >3mins.? @ -No Was critical care preformed (if so, how long)? @ -No Were there social determinants of health that impacted care today? How? (Homelessness, low income, unemployed, alcoholism, drug addiction, transportation, low edu. Level, literacy, decrease access to med. care, care home, rehab)? @ -No Was there de-escalation of care discussed even if they declined (Discuss DNR or withdrawal of care, Hospice)? @ -No What co-morbidities impacted this encounter? (DM, HTN, Smoking, COPD, CAD, Cancer, CVA, ARF, Chemo, Hep., AIDS, mental health diagnosis, sleep apnea, morbid obesity)? @ -None Was patient admitted / discharged? Hospital course, mention meds given and route, prescriptions, significant lab abnormalities, going to OR and other pertinent info. @ Discharged- This is a pleasant 28-year-old female presenting for left flank pain x 2 days h istory kidney stones. On my assessment is uncomfortable appearing but nontoxic and otherwise well-appearing. Positive left CVA tenderness. Plan for comprehensive labs, CT ab and pelvis without contrast UA, patient states that she has very hard time controlling her pain and typically requires morphine or 2 mg of Dilaudid for pain control, Ordered. Patient states she gets burning in her arm when given Toradol so we will bypass this and keep patient NPO. Patient requested morphine after receiving Dilaudid. This was ordered for the patient. CT on pelvis shows mesenteric panniculitis potentially however this is similar to prior CT. Urinalysis without signs of infection or hematuria. Labs significant for slight elevation LFTs otherwise unremarkable. Updated patient to findings. On my assessment patient endorses improvement of pain however states that Norflex helped her pain when she was seen at another hospital and request this prior to discharge. This will be provided. Patient comfortable with plan for discharge at this point. In my medical judgment there is currently no evidence of an immediate life- threatening or surgical condition. Discharge is therefore indicated at this time. Discharge treatment instructions, follow up instructions, and appropriate emergency department return precautions were discussed with the patient and/or medical decision maker. Patient and/or medical decision maker expressed understanding of and agreed with the treatment plan, follow up instructions, and emergency department return precaution. All patient's and/or medical decision maker's questions were answered. Undiagnosed new problem with uncertain prognosis? @ -No Drug Therapy requiring intensive monitoring for toxicity (Heparin, Nitro, Insulin, Cardizem)? @ -No Were any procedures done? @ -No Diagnosis/symptom? @Left flank pain Acute, or Chronic, or Acute on Chronic? @Acute Uncomplicated (without systemic symptoms) or Complicated (systemic symptoms)? @Complicated Side effects of treatment? @ -No Exacerbation, Progression, or Severe Exacerbation? @ -No Poses a threat to life or bodily function? How? (Chest pain, USA, ID, pneumonia, PE, COPD, DKA, ARF, appy, cholecystitis, CVA, Diverticulitis, Homicidal, Suicidal, threat to staff... and all critical care pts) @ -No - Lab Data Result diagrams: 02/15/24 15:50 02/15/24 15:50 Lab Results 02/15/24 02/15/24 02/15/24 Range/Units 15:50 15:50 15:50 WBC 5.2 (3.8-10.6) k/uL RBC 4.32 (3.80-5.40) m/uL Hgb 13.6 (11.4-16.0) gm/dL Hct 40.5 (34.0-46.0) % MCV 93.8 (80.0-100.0) fL MCH 31.4 (25.0-35.0) pg MCHC 33.5 (31.0-37.0) g/dL RDW 12.5 (11.5-15.5) % Plt Count 232 (150-450) k/uL MPV 6.8 Neutrophils % 74 % Lymphocytes % 18 % Monocytes % 4 % Eosinophils % 2 % Basophils % 0 % Neutrophils # 3.8 (1.3-7.7) k/uL Lymphocytes # 0.9 L (1.0-4.8) k/uL Monocytes # 0.2 (0-1.0) k/uL Eosinophils # 0.1 (0-0.7) k/uL Basophils # 0.0 (0-0.2) k/uL PT 10.7 (10.0-12.5) sec INR 1.0 (<1.2) APTT 25.0 (22.0-30.0) sec Sodium 136 L (137-145) mmol/L Potassium 4.3 (3.5-5.1) mmol/L Chloride 105 (98-107) mmol/L Carbon Dioxide 22 (22-30) mmol/L Anion Gap 9 mmol/L BUN 20 H (7-17) mg/dL Creatinine 0.83 (0.52-1.04) mg/dL Est GFR (CKD-EPI)AfAm >90 (>60 ml/min/1.73 sqM) Est GFR (CKD-EPI)NonAf >90 (>60 ml/min/1.73 sqM) Glucose 104 H (74-99) mg/dL Calcium 9.4 (8.4-10.2) mg/dL Total Bilirubin 0.5 (0.2-1.3) mg/dL AST 74 H (14-36) U/L ALT 87 H (4-34) U/L Alkaline Phosphatase 84 (38-126) U/L Total Protein 7.9 (6.3-8.2) g/dL Albumin 5.0 (3.5-5.0) g/dL Lipase 47 (23-300) U/L HCG, Quant <2.4 mIU/mL Urine Color Urine Appearance (Clear) Urine pH (5.0-8.0) Ur Specific [place] (1.001-1.035) Urine Protein (Negative) Urine Glucose (UA) (Negative) Urine Ketones (Negative) Urine Blood (Negative) Urine Nitrite (Negative) Urine Bilirubin (Negative) Urine Urobilinogen (<2.0) mg/dL Ur Leukocyte Esterase (Negative) Blood Type Blood Type Recheck Bld Type Recheck Status Antibody Screen Spec Expiration Date 02/15/24 02/15/24 Range/Units 15:50 15:50 WBC (3.8-10.6) k/uL RBC (3.80-5.40) m/uL Hgb (11.4-16.0) gm/dL Hct (34.0-46.0) % MCV (80.0-100.0) fL MCH (25.0-35.0) pg MCHC (31.0-37.0) g/dL RDW (11.5-15.5) % Plt Count (150-450) k/uL MPV Neutrophils % % Lymphocytes % % Monocytes % % Eosinophils % % Basophils % % Neutrophils # (1.3-7.7) k/uL Lymphocytes # (1.0-4.8) k/uL Monocytes # (0-1.0) k/uL Eosinophils # (0-0.7) k/uL Basophils # (0-0.2) k/uL PT (10.0-12.5) sec INR (<1.2) APTT (22.0-30.0) sec Sodium (137-145) mmol/L Potassium (3.5-5.1) mmol/L Chloride (98-107) mmol/L Carbon Dioxide (22-30) mmol/L Anion Gap mmol/L BUN (7-17) mg/dL Creatinine (0.52-1.04) mg/dL Est GFR (CKD-EPI)AfAm (>60 ml/min/1.73 sqM) Est GFR (CKD-EPI)NonAf (>60 ml/min/1.73 sqM) Glucose (74-99) mg/dL Calcium (8.4-10.2) mg/dL Total Bilirubin (0.2-1.3) mg/dL AST (14-36) U/L ALT (4-34) U/L Alkaline Phosphatase (38-126) U/L Total Protein (6.3-8.2) g/dL Albumin (3.5-5.0) g/dL Lipase (23-300) U/L HCG, Quant mIU/mL Urine Color Colorless Urine Appearance Clear (Clear) Urine pH 5.5 (5.0-8.0) Ur Specific [place] 1.021 (1.001-1.035) Urine Protein Negative (Negative) Urine Glucose (UA) Negative (Negative) Urine Ketones Negative (Negative) Urine Blood Negative (Negative) Urine Nitrite Negative (Negative) Urine Bilirubin Negative (Negative) Urine Urobilinogen <2.0 (<2.0) mg/dL Ur Leukocyte Esterase Negative (Negative) Blood Type O Negative Blood Type Recheck O Neg Bld Type Recheck Status No Antibody Screen NEGATIVE Spec Expiration Date 02/18/20242349 Disposition Clinical Impression: Left flank pain Disposition: HOME SELF-CARE Condition: Good Instructions (If sedation given, give patient instructions): Flank Pain (ED) Additional Instructions: Every disease is a spectrum and a small chance still exists that a serious condition could develop, for this reason, please monitor yourself closely for new, changing or worsening symptoms, symptoms that persist beyond 72 hours, blood in your urine fever, inability to tolerate/keep down fluids or your medications, inability to follow up with outpatient providers as instructed and should you experience these symptoms or should you have any further concerns for your wellbeing please return to the ED or call 911 immediately. PLEASE call your primary care physician as soon as possible to arrange / discuss plan for followup appointment. Appointment in the next 1-3 days is strongly encouraged if possible. PLEASE let us know here before you leave if there is anything further we can do to be of any assistance. Take care and feel Better! Prescriptions: Orphenadrine [Norflex] 100 mg PO Q12H PRN #30 tab PRN Reason: Pain Is patient prescribed a controlled substance at d/c from ED?: No Referrals: Tiffanie Graham MD [Primary Care Provider] - 1-2 days
[2024-02-15] MEDS: HYDROmorphone 1 MG/ML 1 ML SYRINGE IVP STA ×2 (16:22→19:29)
[2024-02-15 16:23] LABS: Basophils % (A) 0 %; Eosinophils # (A) 0.1 k/uL (0-0.7); Eosinophils % (A) 2 %; HCT 40.5 % (34.0-46.0); HGB 13.6 gm/dL (11.4-16.0); Lymphocytes # (A) 0.9 k/uL (1.0-4.8); Lymphocytes % (A) 18 %; MCH 31.4 pg (25.0-35.0); MCHC 33.5 g/dL (31.0-37.0); MCV 93.8 fL (80.0-100.0); Mean Platelet Volume 6.8; Monocytes # (A) 0.2 k/uL (0-1.0); Monocytes % (A) 4 %; Neutrophils # (A) 3.8 k/uL (1.3-7.7); Neutrophils % (A) 74 %; Platelet Count 232 k/uL (150-450); RBC 4.32 m/uL (3.80-5.40); RDW 12.5 % (11.5-15.5); WBC 5.2 k/uL (3.8-10.6)
[2024-02-15 16:31] LABS: ALT 87 U/L (4-34); AST 74 U/L (14-36); African American GFR (CKD) >90 (>60 ml/min/1.73 sqM); Alkaline Phosphatase 84 U/L (38-126); Anion Gap 9 mmol/L; Blood Urea Nitrogen 20 mg/dL (7-17); Calcium 9.4 mg/dL (8.4-10.2); Carbon Dioxide 22 mmol/L (22-30); Chloride 105 mmol/L (98-107); Glucose 104 mg/dL (74-99); Lipase 47 U/L (23-300); Non-African American GFR(CKD) >90 (>60 ml/min/1.73 sqM); Potassium 4.3 mmol/L (3.5-5.1); Sodium 136 mmol/L (137-145); Total Bilirubin 0.5 mg/dL (0.2-1.3); Total Protein 7.9 g/dL (6.3-8.2)
[2024-02-15 16:41] LABS: Appearance,Urine Clear (Clear); Bilirubin,Urine Negative (Negative); Blood,Urine Negative (Negative); Color,Urine Colorless; Glucose,Urine (UA) Negative (Negative); Ketones,Urine Negative (Negative); Leukocyte Esterase,Urine Negative (Negative); Nitrite,Urine Negative (Negative); PH, Urine 5.5 (5.0-8.0); Protein,Urine Negative (Negative); Specific Gravity,Urine 1.021 (1.001-1.035); Urobilinogen,Urine <2.0 mg/dL (<2.0)
[2024-02-15 16:48] LABS: HCG,Quantitative Serum <2.4 mIU/mL
[2024-02-15 17:13] LABS: Prothrombin Time 10.7 sec (10.0-12.5)
[2024-02-15] MEDS: MORPHINE SULFATE 4 MG/ML SYRINGE IVP STA (17:29)
[2024-02-15] MEDS: ONDANSETRON 4 MG/2 ML VIAL IVP STA (17:30)
--- NOTE | 2024-02-15 18:02 | CT ---
EXAMINATION TYPE: CT abdomen pelvis wo con DATE OF EXAM: 02/15/2024 5:51 PM COMPARISON: None. CLINICAL INDICATION: Female, 28 years old with history of Left flank pain, suspect stone, Left flank pain, suspect stone TECHNIQUE: Axial images with sagittal coronal reformats. Examination of the solid and hollow viscera is limited given the lack of contrast. CT DLP: 632.2 mGycm, Automated exposure control for dose reduction was used. FINDINGS: LUNG BASES: No evidence for nodule. No evidence for infiltrate. LIVER/GB: Moderate hepatic steatosis and hepatomegaly. The gallbladder surgically absent. No space-oc cupying hepatic lesion. PANCREAS: No pancreatic mass identified. No inflammatory process seen. SPLEEN: No evidence for splenomegaly. No intrasplenic lesions seen. ADRENALS: No adrenal nodules identified. No evidence for thickening. KIDNEYS: No evidence for renal mass. Small nonobstructing renal calculi seen bilaterally however I do not see evidence for an obstructing calculus. BOWEL: Appendectomy changes noted. No evidence of bowel obstruction. No inflammatory process. Lymph nodes: No evidence for adenopathy greater than 1 cm. Abdominal aorta: Atheromatous changes seen. No evidence for aneurysm. Genital organs: No significant abnormality. Other: Hazy density within the small bowel mesentery unchanged from prior study could reflect mesente camacho panniculitis IMPRESSION: 1. Hepatic steatosis with hepatomegaly. 2. 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 3. Small nonobstructing renal calculi seen bilaterally however I do not see evidence for an obstructi ng calculus [facility], , 02/15/2024 6:00 PM
[2024-02-15] MEDS: ACETAMINOPHEN TAB 500 MG TAB PO STA (18:50)
[2024-02-15] MEDS: IBUPROFEN IV 600 MG in SODIUM CHLORIDE 0.9% 250 ML IV STA (18:52)
[2024-02-15 19:28] VITALS: BP 102/68; PULSE 113; RESP 18; TEMP 97.8
[2024-02-15] MEDS: ORPHENADRINE 30 MG/ML 2 ML VIAL IVP STA (19:28)
== END 2024-02-15 19:39 | disposition home or self-care (01) ==
LOC: EC 15:22
DX: R10.9 Unspecified abdominal pain (principal); R79.89 Other specified abnormal findings of blood chemistry; Z88.0 Allergy status to penicillin; Z91.018 Allergy to other foods; Z91.09 Other allergy status, other than to drugs and biological substances; Z88.2 Allergy status to sulfonamides; Z88.1 Allergy status to other antibiotic agents; Z90.89 Acquired absence of other organs; Z90.49 Acquired absence of other specified parts of digestive tract
CPT/HCPCS: 36415; 86900; 86901; 80053; 83690; 85025; 85610; 85730; 86850; 81003; 84702; 74176; 99285; 96374; 96375 ×2; 96361 ×3; J2270; J2360; J1171

== ENCOUNTER 2024-02-22 21:30 | Emergency (ER) | payer OTHER ==
[2024-02-22 21:40] VITALS: TEMP 97.6
[2024-02-22] MEDS: SODIUM CHLORIDE 0.9% 1,000 ML IV STA (22:21)
[2024-02-22] MEDS: ONDANSETRON 4 MG/2 ML VIAL IVP STA (22:21)
[2024-02-22] MEDS: KETOROLAC 15 MG/ML 1 ML VIAL IVP STA ×2 (22:21→23:28)
[2024-02-22] MEDS: HYDROmorphone 1 MG/ML 1 ML SYRINGE IVP STA ×2 (22:22→23:29)
[2024-02-22 22:28] LABS: Basophils % (A) 1 %; Eosinophils # (A) 0.2 k/uL (0-0.7); Eosinophils % (A) 3 %; HCT 38.3 % (34.0-46.0); HGB 12.9 gm/dL (11.4-16.0); Lymphocytes # (A) 2.9 k/uL (1.0-4.8); Lymphocytes % (A) 43 %; MCH 31.3 pg (25.0-35.0); MCHC 33.8 g/dL (31.0-37.0); MCV 92.8 fL (80.0-100.0); Mean Platelet Volume 6.9; Monocytes # (A) 0.3 k/uL (0-1.0); Monocytes % (A) 5 %; Neutrophils # (A) 3.2 k/uL (1.3-7.7); Neutrophils % (A) 46 %; Platelet Count 305 k/uL (150-450); RBC 4.13 m/uL (3.80-5.40); RDW 12.6 % (11.5-15.5); WBC 6.9 k/uL (3.8-10.6)
--- NOTE | 2024-02-22 22:47 | ED ---
Abdominal Pain HPI - General Chief Complaint: Abdominal Pain Stated Complaint: abd pain Time Seen by Provider: 02/22/24 21:45 Source: patient, RN notes reviewed Mode of arrival: ambulatory Limitations: no limitations - History of Present Illness Initial Comments: This is a 28-year-old female who presents to the emergency department for left- sided abdominal pain. Patient reports left flank pain radiating to the left side of the abdomen. This initially occurred a couple of weeks ago and it was attributed to musculoskeletal pain. She started to improve, however today the pain got much worse. States that it radiates into her left upper quadrant and lower quadrant and breathing makes the pain worse. Reports associated nausea and vomiting. She noticed that the pain seemed to get worse today after having a bowel movement. MD Complaint: abdominal pain, flank pain - Related Data Home Medications Medication Instructions Recorded Confirmed Albuterol Nebulized [Ventolin 2.5 mg INHALATION RT-QID PRN 05/18/22 12/13/23 Nebulized] Cholecalciferol [Vitamin D3 (25 25 mcg PO DAILY 04/25/23 12/13/23 Mcg = 1000 Iu)] Omeprazole 40 mg PO DAILY@1600 05/13/23 12/13/23 Ashwagandha 700 mg PO DAILY 11/24/23 12/13/23 Desvenlafaxine Succinate [Pristiq 50 mg PO DAILY 11/24/23 12/13/23 ER] Famotidine [Pepcid] 20 mg PO DAILY PRN 11/24/23 12/13/23 Nortriptyline [Pamelor] 50 mg PO DAILY 11/24/23 12/13/23 diazePAM [Valium] 5 mg PO BID 11/25/23 12/13/23 Brexpiprazole [Rexulti] 1 mg PO DAILY 12/13/23 12/13/23 Cyclobenzaprine [Flexeril] 5 mg PO TID PRN 12/13/23 12/13/23 Previous Rx's Medication Instructions Recorded Montelukast [Singulair] 10 mg PO DAILY #20 tab 08/03/23 EPINEPHrine (Auto Inject) [Epipen] 0.3 mg IM ONCE PRN #1 each 11/17/23 diphenhydrAMINE [Benadryl] 25 mg PO TID PRN #21 capsule 11/17/23 Levothyroxine Sodium 150 mcg PO DAILY #30 tab 11/22/23 Aspirin 81 mg PO DAILY #30 tab 11/25/23 Ibuprofen [Motrin] 800 mg PO Q8H #21 tab 11/25/23 Metoprolol Succinate [Metoprolol See Rx Instructions .ROUTE 12/14/23 Succinate ER] .COMPLEX 30 Days #90 tab Tamsulosin [Flomax] 0.4 mg PO DAILY #10 cap 12/24/23 Phenylephrine HCl/[place] Butter 1 supp RECTAL QID PRN #24 12/29/23 [Preparation H Suppository] suppositor Orphenadrine [Norflex] 100 mg PO Q12H PRN #30 tab 02/16/24 oxyCODONE-APAP 10-325MG [Percocet 1 tab PO Q4HR PRN 3 Days #18 tab 02/23/24 10-325 mg] Allergies Allergy/AdvReac Type Severity Reaction Status Date / Time amoxicillin Allergy Rash/Hives Verified 02/22/24 21:39 banana Allergy Anaphylaxis Verified 02/22/24 21:39 nickel Allergy Rash/Hives Verified 02/22/24 21:39 sulfamethoxazole Allergy Rash/Hives Verified 02/22/24 21:39 [From ] trimethoprim [From Octra] Allergy Rash/Hives Verified 02/22/24 21:39 corn AdvReac Diarrhea Verified 02/22/24 21:39 Review of Systems ROS Statement: Those systems with pertinent positive or pertinent negative responses have been documented in the HPI. ROS Other: All systems not noted in ROS Statement are negative. 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, History of Any Multi-Drug Resistant Organisms: None Reported Past Surgical History: Appendectomy, Section, Cholecystectomy Additional Past Surgical History / Comment(s): thyroidectomy 09/2017, Laparoscopic exam w/ cautery endometriosis 2012 Past Anesthesia/Blood Transfusion Reactions: No Reported Reaction Past Psychological History: Anxiety, Depression Smoking Status: Never smoker Past Alcohol Use History: Occasional, Rare Past Drug Use History: None Reported - Past Family History Mother Family Medical History: Asthma Father Family Medical History: Coronary Artery Disease (CAD), CVA/TIA, Diabetes Mellitus Brother(s) Family Medical History: Asthma General Exam Limitations: no limitations General appearance: alert, in distress Head exam: Present: atraumatic, normocephalic, normal inspection Respiratory exam: Present: normal lung sounds bilaterally. Absent: respiratory distress, wheezes, rales, rhonchi, stridor Cardiovascular Exam: Present: normal rhythm, tachycardia GI/Abdominal exam: Present: soft, tenderness (LLQ and LUQ), normal bowel sounds. Absent: distended Back exam: Present: CVA tenderness (L). Absent: CVA tenderness (R) Neurological exam: Present: alert, oriented X3, CN II-XII intact Psychiatric exam: Present: normal affect, normal mood Skin exam: Present: warm, dry, intact, normal color. Absent: rash Course Vital Signs 02/22/24 02/23/24 21:36 03:36 Temperature 97.6 F Pulse Rate 120 H 100 Respiratory 20 18 Rate Blood Pressure 126/73 129/99 O2 Sat by Pulse 96 94 L Oximetry Medical Decision Making - Medical Decision Making This is a 28-year-old female who presents to the emergency department for abdominal pain. Was pt. sent in by a medical professional or institution? @ -No Did you speak to anyone other than the patient for history? @ -No Did you review nursing and triage notes? @ -Yes, and I agree, it is accurate with regards to the patient's symptoms. Were old charts reviewed? @ -No Differential Diagnosis? @ -Differential Abdominal Pain Women: Appendicitis, Cholecystitis, diverticulosis, ischemic bowel, pancreatitis, he patitis, UTI, gastroenteritis, AAA, incarcerated hernia, bowel obstruction, constipation, inflammatory bowel, hepatitis, peptic ulcer disease, splenic infarction, perforated viscus, vulvitis, ovarian torsion, PID, kidney stone, placenta abruption, this is not meant to be an all-inclusive list EKG interpreted by me (3pts min.)? @ -EKG interpreted by me demonstrating the following: Sinus tachycardia. Ventricular rate 113 bpm, NC interval 150 ms, QRS duration 92 ms, QTc 388 ms. X-rays interpreted by me (1pt min.)? @ -Not obtained CT interpreted by me (1pt min.)? @ -CTA of the chest obtained. My interpretation identifies no evidence of a pulmonary embolus. CT scan of the abdomen and pelvis obtained. My interpreta tion identifies no evidence of bowel wall thickening or free air. U/S interpreted by me (1pt. min.)? @ -Not obtained What testing was considered but not performed? (CT, X-rays, U/S, labs)? Why? @ -None What meds were considered but not given? Why? @ -None Did you discuss the management of the patient with other professionals? @ -No Did you reconcile home meds? @ -No Was smoking cessation discussed for >3mins.? @ -No Was critical care preformed (if so, how long)? @ -No Were there social determinants of health that impacted care today? How? (Homelessness, low income, unemployed, alcoholism, drug addiction, transportation, low edu. Level, literacy, decrease access to med. care, correction, rehab)? @ -No Was there de-escalation of care discussed even if they declined? (Discuss DNR or withdrawal of care, Hospice)? @ -No What co-morbidities impacted this encounter? (DM, HTN, Smoking, COPD, CAD, Cancer, CVA, Hep., AIDS, mental health diagnosis, sleep apnea, morbid obesity)? @ -None Was patient admitted / discharged? @ -Discharged. Lab work demonstrates a mildly elevated lactic acid of 2.2 and is otherwise unremarkable. LFTs are stable when compared with prior. Urinalysis negative for signs of infection. CTA of the chest obtained revealing no evidence of a pulmonary embolus or other acute process. CT scan of the abdomen and pelvis also revealed no acute findings. The cause of her pain is not entirely clear. It could be musculoskeletal in nature. Pain was managed in the emergency department. 3-day refill on pain medication provided. Advised follow up with her PCP for reevaluation. Patient discharged home in stable condition. Case discussed with ED attending Dr. Forte. Return precautions reviewed in depth, the patient is instructed to return to the emergency department with any new, worsening, or concerning symptoms. Patient verbalized understanding. Undiagnosed new problem with uncertain prognosis? @ -None Drug Therapy requiring intensive monitoring for toxicity (Heparin, Nitro, Insulin, Cardizem)? @ -None Were any procedures done? @ -None Diagnosis/symptom? @ -Left flank pain, nausea and vomiting Acute, or Chronic, or Acute on Chronic? @ -Acute Uncomplicated (without systemic symptoms) or Complicated (systemic symptoms)? @ -Uncomplicated Side effects of treatment? @ -None Exacerbation, Progression, or Severe Exacerbation] @ -Not applicable Poses a threat to life or bodily function? @ -No - Lab Data Result diagrams: 02/22/24 22:16 02/22/24 22:16 Lab Results 02/22/24 02/22/24 02/22/24 Range/Units 22:16 22:16 22:16 WBC 6.9 (3.8-10.6) k/uL RBC 4.13 (3.80-5.40) m/uL Hgb 12.9 (11.4-16.0) gm/dL Hct 38.3 (34.0-46.0) % MCV 92.8 (80.0-100.0) fL MCH 31.3 (25.0-35.0) pg MCHC 33.8 (31.0-37.0) g/dL RDW 12.6 (11.5-15.5) % Plt Count 305 (150-450) k/uL MPV 6.9 Neutrophils % 46 % Lymphocytes % 43 % Monocytes % 5 % Eosinophils % 3 % Basophils % 1 % Neutrophils # 3.2 (1.3-7.7) k/uL Lymphocytes # 2.9 (1.0-4.8) k/uL Monocytes # 0.3 (0-1.0) k/uL Eosinophils # 0.2 (0-0.7) k/uL Basophils # 0.0 (0-0.2) k/uL Sodium 138 (137-145) mmol/L Potassium 4.2 (3.5-5.1) mmol/L Chloride 102 (98-107) mmol/L Carbon Dioxide 26 (22-30) mmol/L Anion Gap 10 mmol/L BUN 18 H (7-17) mg/dL Creatinine 0.81 (0.52-1.04) mg/dL Est GFR (CKD-EPI)AfAm >90 (>60 ml/min/1.73 sqM) Est GFR (CKD-EPI)NonAf >90 (>60 ml/min/1.73 sqM) Glucose 144 H (74-99) mg/dL Lactic Ac Sepsis Rflx Plasma Lactic Acid Beau 2.2 H* (0.7-2.0) mmol/L Calcium 9.2 (8.4-10.2) mg/dL Total Bilirubin <0.1 L (0.2-1.3) mg/dL AST 47 H (14-36) U/L ALT 73 H (4-34) U/L Alkaline Phosphatase 128 H (38-126) U/L Troponin I (0.000-0.034) ng/mL Total Protein 7.4 (6.3-8.2) g/dL Albumin 4.7 (3.5-5.0) g/dL Amylase 44 (30-110) U/L Lipase 57 (23-300) U/L HCG, Qual Not Detected Urine Color Urine Appearance (Clear) Urine pH (5.0-8.0) Ur Specific [place] (1.001-1.035) Urine Protein (Negative) Urine Glucose (UA) (Negative) Urine Ketones (Negative) Urine Blood (Negative) Urine Nitrite (Negative) Urine Bilirubin (Negative) Urine Urobilinogen (<2.0) mg/dL Ur Leukocyte Esterase (Negative) 02/22/24 02/22/24 02/22/24 Range/Units 22:16 23:09 23:10 WBC (3.8-10.6) k/uL RBC (3.80-5.40) m/uL Hgb (11.4-16.0) gm/dL Hct (34.0-46.0) % MCV (80.0-100.0) fL MCH (25.0-35.0) pg MCHC (31.0-37.0) g/dL RDW (11.5-15.5) % Plt Count (150-450) k/uL MPV Neutrophils % % Lymphocytes % % Monocytes % % Eosinophils % % Basophils % % Neutrophils # (1.3-7.7) k/uL Lymphocytes # (1.0-4.8) k/uL Monocytes # (0-1.0) k/uL Eosinophils # (0-0.7) k/uL Basophils # (0-0.2) k/uL Sodium (137-145) mmol/L Potassium (3.5-5.1) mmol/L Chloride (98-107) mmol/L Carbon Dioxide (22-30) mmol/L Anion Gap mmol/L BUN (7-17) mg/dL Creatinine (0.52-1.04) mg/dL Est GFR (CKD-EPI)AfAm (>60 ml/min/1.73 sqM) Est GFR (CKD-EPI)NonAf (>60 ml/min/1.73 sqM) Glucose (74-99) mg/dL Lactic Ac Sepsis Rflx Y Plasma Lactic Acid Beau (0.7-2.0) mmol/L Calcium (8.4-10.2) mg/dL Total Bilirubin (0.2-1.3) mg/dL AST (14-36) U/L ALT (4-34) U/L Alkaline Phosphatase (38-126) U/L Troponin I <0.012 (0.000-0.034) ng/mL Total Protein (6.3-8.2) g/dL Albumin (3.5-5.0) g/dL Amylase (30-110) U/L Lipase (23-300) U/L HCG, Qual Urine Color Colorless Urine Appearance Clear (Clear) Urine pH 7.0 (5.0-8.0) Ur Specific [place] 1.024 (1.001-1.035) Urine Protein Negative (Negative) Urine Glucose (UA) Negative (Negative) Urine Ketones Negative (Negative) Urine Blood Negative (Negative) Urine Nitrite Negative (Negative) Urine Bilirubin Negative (Negative) Urine Urobilinogen <2.0 (<2.0) mg/dL Ur Leukocyte Esterase Negative (Negative) - Radiology Data Radiology results: report reviewed, image reviewed Disposition Clinical Impression: Left flank pain, Nausea and vomiting Disposition: HOME SELF-CARE Instructions (If sedation given, give patient instructions): Flank Pain (ED) Additional Instructions: Return to the emergency department with any new, worsening, or concerning symptoms. Follow up with your primary care provider in 1-2 days. Prescriptions: oxyCODONE-APAP 10-325MG [Percocet 10-325 mg] 1 tab PO Q4HR PRN 3 Days #18 tab PRN Reason: Pain Is patient prescribed a controlled substance at d/c from ED?: Yes When asked, does pt state using other controlled substances?: Yes If prescribed controlled substance>3 days was MAPS reviewed?: Prescribed <3 Days Referrals: Tiffanie Graham MD [Primary Care Provider] - 1-2 days Time of Disposition: 03:59
[2024-02-22 22:53] LABS: ALT 73 U/L (4-34); AST 47 U/L (14-36); African American GFR (CKD) >90 (>60 ml/min/1.73 sqM); Albumin 4.7 g/dL (3.5-5.0); Alkaline Phosphatase 128 U/L (38-126); Amylase 44 U/L (30-110); Anion Gap 10 mmol/L; Blood Urea Nitrogen 18 mg/dL (7-17); Calcium 9.2 mg/dL (8.4-10.2); Carbon Dioxide 26 mmol/L (22-30); Chloride 102 mmol/L (98-107); Glucose 144 mg/dL (74-99); Lipase 57 U/L (23-300); Non-African American GFR(CKD) >90 (>60 ml/min/1.73 sqM); Potassium 4.2 mmol/L (3.5-5.1); Sodium 138 mmol/L (137-145); Total Bilirubin <0.1 mg/dL (0.2-1.3); Total Protein 7.4 g/dL (6.3-8.2)
[2024-02-22 23:17] LABS: Appearance,Urine Clear (Clear); Bilirubin,Urine Negative (Negative); Blood,Urine Negative (Negative); Color,Urine Colorless; Glucose,Urine (UA) Negative (Negative); Ketones,Urine Negative (Negative); Leukocyte Esterase,Urine Negative (Negative); Nitrite,Urine Negative (Negative); Protein,Urine Negative (Negative); Specific Gravity,Urine 1.024 (1.001-1.035); Urobilinogen,Urine <2.0 mg/dL (<2.0)
[2024-02-22 23:57] LABS: HCG,Qualitative Serum Not Detected
--- NOTE | 2024-02-23 00:52 | CT ---
EXAM: CT Chest With Intravenous Contrast CLINICAL HISTORY: Left side flank pain. Reports nausea and vomiting hx of appendectomy, cholecystectomy, c section. LUQ, left chest pain, tachycardia TECHNIQUE: Axial computed tomographic images of the chest with intravenous contrast. CTDI is 13 mGy and DLP is 948.9 mGy-cm. This CT exam was performed using one or more of the following dose reduction techniques: automated exposure control, adjustment of the mA and/or kV according to patient size, and/or use of iterative reconstruction technique. Coronal and sagittal reformatted images were created and reviewed. 705 images COMPARISON: 12/13/2023 FINDINGS: Pulmonary arteries: Unremarkable. No pulmonary embolism. Aorta: No acute findings. No thoracic aortic aneurysm. Lungs: Small amount of peripheral atelectasis in both lungs, decreased. No mass. Pleural space: Unremarkable. No significant effusion. No pneumothorax. Heart: Unremarkable. No cardiomegaly. No significant pericardial effusion. No evidence of RV dysfunction. Bones/joints: No acute findings. Soft tissues: Unremarkable. Lymph nodes: Unremarkable. No enlarged lymph nodes. Gallbladder and bile ducts: Fatty liver. Cholecystectomy clips. IMPRESSION: No pulmonary embolism. Normal thoracic aorta. No acute findings.
--- NOTE | 2024-02-23 00:55 | CT ---
EXAM: CT Abdomen and Pelvis With Intravenous Contrast CLINICAL HISTORY: Left side flank pain. Reports nausea and vomiting hx of appendectomy, cholecystectomy, c section. LUQ, left chest pain, tachycardia. LUQ, LLQ, and left flank pain TECHNIQUE: Axial computed tomography images of the abdomen and pelvis with intravenous contrast. CTDI is 14.4 mGy and DLP is 380 mGy-cm. This CT exam was performed using one or more of the following dose reduction techniques: automated exposure control, adjustment of the mA and/or kV according to patient size, and/or use of iterative reconstruction technique. Coronal and sagittal reformatted images were created and reviewed. 441 images COMPARISON: No relevant prior studies available. FINDINGS: ABDOMEN: Liver: Unremarkable. No mass. Gallbladder and bile ducts: Unremarkable. No calcified stones. No ductal dilation. Pancreas: Unremarkable. No mass. No ductal dilation. Spleen: Unremarkable. No splenomegaly. Adrenals: Unremarkable. No mass. Kidneys and ureters: Unremarkable. No solid mass. No hydronephrosis. Stomach and bowel: Unremarkable. No obstruction. No mucosal thickening. PELVIS: Appendix: appendectomy clips/suture. Bladder: Unremarkable. No mass. Reproductive: Unremarkable as visualized. ABDOMEN and PELVIS: Intraperitoneal space: Unremarkable. No free air. No significant fluid collection. Bones/joints: No acute findings. Soft tissues: Diffuse fatty infiltration with minimal sparing. Vasculature: Unremarkable. No abdominal aortic aneurysm. Lymph nodes: Unremarkable. No enlarged lymph nodes. IMPRESSION: No acute findings in the abdomen or pelvis.
[2024-02-23] MEDS: ORPHENADRINE 30 MG/ML 2 ML VIAL IVP STA (03:23)
[2024-02-23] MEDS: HYDROmorphone 1 MG/ML 1 ML SYRINGE IVP STA (03:26)
[2024-02-23 03:37] VITALS: BP 129/99; PULSE 100; RESP 18
== END 2024-02-23 04:32 | disposition home or self-care (01) ==
LOC: EC 21:30
DX: R10.32 Left lower quadrant pain (principal); R11.2 Nausea with vomiting, unspecified; Z91.011 Allergy to milk products; Z91.018 Allergy to other foods; Z88.1 Allergy status to other antibiotic agents; Z88.2 Allergy status to sulfonamides; Z88.0 Allergy status to penicillin; Z90.49 Acquired absence of other specified parts of digestive tract; Z90.89 Acquired absence of other organs
CPT/HCPCS: 99284; 96374; 96375 ×2; 96376 ×2; 96361; 36415; 93005; 80053; 82150; 83605; 83690; 84484; 85025; 81003; 84703; 71275; 74177; J2360; J2405; J1171 ×2; J1885; Q9967

== ENCOUNTER 2024-05-05 15:30 | Emergency (ER) | payer MEDICAID, OTHER ==
[2024-05-05 15:36] VITALS: RESP 18
--- NOTE | 2024-05-05 16:21 | ED ---
Abdominal Pain HPI - General Chief Complaint: Abdominal Pain Stated Complaint: lower abd pain, poss Time Seen by Provider: 05/05/24 16:20 Source: patient, RN notes reviewed Mode of arrival: ambulatory Limitations: no limitations - History of Present Illness Initial Comments: 29-year-old female presented to the ER for evaluation of pelvic pain. Patient states this started approximately 2 weeks ago and did subside to mild twinges. She reports she was seen at urgent care who completed US and believed they saw an fluid filled sac within endometrium possibly a . Patient reports yesterday while driving left-sided lower abdominal pain/pelvic pain intensified. 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 Patient reports she started lightly spotting on 05 02 24 this is since subsided. Patient reports over the past month she has taken numerous tests at home, 10 of which were positive. Patient is unsure of status. She does report a history of endometriosis. Last menstrual cycle 03-20-2024. Patient reports she has not been able to follow-up with [facility] given insurance issues. She denies any fevers, chills, urinary complaints, constipation/diarrhea. No current vaginal bleeding or discharge. No other complaints. - Related Data Home Medications Medication Instructions Recorded Confirmed Albuterol Nebulized [Ventolin 2.5 mg INHALATION RT-QID PRN 05/18/22 12/13/23 Nebulized] Cholecalciferol [Vitamin D3 (25 25 mcg PO DAILY 04/25/23 12/13/23 Mcg = 1000 Iu)] Omeprazole 40 mg PO DAILY@1600 05/13/23 12/13/23 Ashwagandha 700 mg PO DAILY 11/24/23 12/13/23 Desvenlafaxine Succinate [Pristiq 50 mg PO DAILY 11/24/23 12/13/23 ER] Famotidine [Pepcid] 20 mg PO DAILY PRN 11/24/23 12/13/23 Nortriptyline [Pamelor] 50 mg PO DAILY 11/24/23 12/13/23 diazePAM [Valium] 5 mg PO BID 11/25/23 12/13/23 Brexpiprazole [Rexulti] 1 mg PO DAILY 12/13/23 12/13/23 Cyclobenzaprine [Flexeril] 5 mg PO TID PRN 12/13/23 12/13/23 Previous Rx's Medication Instructions Recorded Montelukast [Singulair] 10 mg PO DAILY #20 tab 08/03/23 EPINEPHrine (Auto Inject) [Epipen] 0.3 mg IM ONCE PRN #1 each 11/17/23 diphenhydrAMINE [Benadryl] 25 mg PO TID PRN #21 capsule 11/17/23 Levothyroxine Sodium 150 mcg PO DAILY #30 tab 11/22/23 Aspirin 81 mg PO DAILY #30 tab 11/25/23 Ibuprofen [Motrin] 800 mg PO Q8H #21 tab 11/25/23 Metoprolol Succinate [Metoprolol See Rx Instructions .ROUTE 12/14/23 Succinate ER] .COMPLEX 30 Days #90 tab Tamsulosin [Flomax] 0.4 mg PO DAILY #10 cap 12/24/23 Phenylephrine HCl/Roselle Butter 1 supp RECTAL QID PRN #24 12/29/23 [Preparation H Suppository] suppositor Orphenadrine [Norflex] 100 mg PO Q12H PRN #30 tab 02/16/24 Azithromycin [Zithromax] 250 mg PO DIRECTED 5 Days #6 tab 02/28/24 predniSONE 50 mg PO DAILY 5 Days #5 tab 02/28/24 oxyCODONE-APAP 10-325MG [Percocet 1 tab PO Q4HR PRN 7 Days #42 tab 04/08/24 10-325 mg] Allergies Allergy/AdvReac Type Severity Reaction Status Date / Time amoxicillin Allergy Rash/Hives Verified 02/22/24 21:39 banana Allergy Anaphylaxis Verified 02/22/24 21:39 nickel Allergy Rash/Hives Verified 02/22/24 21:39 sulfamethoxazole Allergy Rash/Hives Verified 02/22/24 21:39 [From ] trimethoprim [From ] Allergy Rash/Hives Verified 02/22/24 21:39 corn AdvReac Diarrhea Verified 02/22/24 21:39 Review of Systems ROS Statement: Those systems with pertinent positive or pertinent negative responses have been documented in the HPI. ROS Other: All systems not noted in ROS Statement are negative. 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 loss prevention leader, History of Any Multi-Drug Resistant Organisms: None Reported Past Surgical History: Appendectomy, Section, Cholecystectomy Additional Past Surgical History / Comment(s): thyroidectomy 09/2017, Laparoscopic exam w/ cautery endometriosis 2012 Past Anesthesia/Blood Transfusion Reactions: No Reported Reaction Past Psychological History: Anxiety, Depression Smoking Status: Never smoker Past Alcohol Use History: Occasional, Rare Past Drug Use History: None Reported - Past Family History Mother Family Medical History: Asthma Father Family Medical History: Coronary Artery Disease (CAD), CVA/TIA, Diabetes Mellitus Brother(s) Family Medical History: Asthma General Exam - General Exam Comments Initial Comments: Visual Physical Exam Vital signs reviewed General: Well-appearing, nontoxic, no acute distress. Head: Normocephalic, atraumatic Eyes: PERRLA, EOMI ENT: Airway patent Chest: Nonlabored breathing Skin: No visual rash, normal skin tone Neuro: Alert and oriented 3 Musculoskeletal: No gross abnormalities Limitations: no limitations General appearance: alert, in no apparent distress Respiratory exam: Present: normal lung sounds bilaterally. Absent: respiratory distress, wheezes, rales, rhonchi, stridor Cardiovascular Exam: Present: regular rate, normal rhythm, normal heart sounds. Absent: systolic murmur, diastolic murmur, rubs, gallop, clicks GI/Abdominal exam: Present: soft, tenderness (Left suprapubic), normal bowel sounds Neurological exam: Present: alert, oriented X3, CN II-XII intact Skin exam: Present: warm, dry, intact, normal color. Absent: rash Course Vital Signs 05/05/24 05/05/24 15:32 19:06 Temperature 97.9 F 98.1 F Pulse Rate 129 H 99 Respiratory 18 18 Rate Blood Pressure 136/81 138/85 O2 Sat by Pulse 98 98 Oximetry Medical Decision Making - Medical Decision Making I performed the quick note portion of this chart. Electronically signed by Pam Norton PA-C Was pt. sent in by a medical professional or institution (KESHA Heredia, SENIOR C DEVELOPER, urgent care, hospital, or half-way...) When possible be specific @ -No Did you speak to anyone other than the patient for history (EMS, parent, family, police, friend...)? What history was obtained from this source @ -No Did you review nursing and triage notes (agree or disagree)? Why? @ -I reviewed and agree with nursing and triage notes Were old charts reviewed (outside hosp., previous admission, EMS record, old EKG, old radiological studies, urgent care reports/EKG's, half-way records)? Report findings @ -No old charts were reviewed Differential Diagnosis (chest pain, altered mental status, abdominal pain women, abdominal pain men, vaginal bleeding, weakness, fever, dyspnea, syncope, headache, dizziness, GI bleed, back pain, seizure, CVA, palpatations, mental health, musculoskeletal)? @ -Differential Abdominal Pain Women: Appendicitis, Cholecystitis, diverticulosis, ischemic bowel, pancreatitis, hepatitis, UTI, gastroenteritis, AAA, incarcerated hernia, bowel obstruction, constipation, inflammatory bowel, hepatitis, peptic ulcer disease, splenic infarction, perforated viscus, vulvitis, ovarian torsion, PID, kidney stone, placenta abruption, this is not meant to be an all-inclusive list EKG interpreted by me (3pts min.). @ -None done X-rays interpreted by me (1pt min.). @ -None done CT interpreted by me (1pt min.). @ -None done U/S interpreted by me (1pt. min.). @ -Transvaginal ultrasound showing no evidence of IUP. What testing was considered but not performed or refused? (CT, X-rays, U/S, labs )? Why? @ - Patient refused CT scan due to radiation risk. What meds were considered but not given or refused? Why? @ -None Did you discuss the management of the patient with other professionals (pr ofessionals i.e. , PA, SENIOR C DEVELOPER, lab, RT, psych nurse, social science analyst, traveling engineer, teacher, risk control officer, case specialist)? Give summary @ -No Was smoking cessation discussed for >3mins.? @ -No Was critical care preformed (if so, how long)? @ -No Were there social determinants of health that impacted care today? How? (Homelessness, low income, unemployed, alcoholism, drug addiction, transportation, low edu. Level, literacy, decrease access to med. care, half-way, rehab)? @ -No Was there de-escalation of care discussed even if they declined (Discuss DNR or withdrawal of care, Hospice)? DNR status @ -No What co-morbidities impacted this encounter? (DM, HTN, Smoking, COPD, CAD, Cancer, CVA, ARF, Chemo, Hep., AIDS, mental health diagnosis, sleep apnea, morbid obesity)? @ -Endometriosis Was patient admitted / discharged? Hospital course, mention meds given and route, prescriptions, significant lab abnormalities, going to OR and other pertinent info. @ -Discharge. 29-year-old female presented the ER for evaluation of left lower abdominal pain. Vitals within acceptable limits. Laboratory studies obtained showing WBC 7.5. Lactic at 2.2. Serum hCG less than 2.4. Urinalysis with occ asional bacteria and moderate blood. No WBCs. Ultrasound showing no IUP. Patient given IM morphine for pain control as IV access was unable to be established and patient refused repeat attempts. Patient updated on laboratory and ultrasound results. I advised her to follow-up closely with [facility] for further evaluation, referral given. Strict return parameters discussed. Patient discharged stable condition. Patient verbally expressed understanding agree with care plan. Case discussed with ED attending, Dr. Forte. Undiagnosed new problem with uncertain prognosis? @ -No Drug Therapy requiring intensive monitoring for toxicity (Heparin, Nitro, Insulin, Cardizem)? @ -No Were any procedures done? @ -No Diagnosis/symptom? @ -Abdominal pain Acute, or Chronic, or Acute on Chronic? @ -Acute Uncomplicated (without systemic symptoms) or Complicated (systemic symptoms)? @ -Uncomplicated Side effects of treatment? @ -No Exacerbation, Progression, or Severe Exacerbation? @ -No Poses a threat to life or bodily function? How? (Chest pain, USA, MT, pneumonia, PE, COPD, DKA, ARF, appy, cholecystitis, CVA, Diverticulitis, Homicidal, Suicidal, threat to staff... and all critical care pts) @ -No - Lab Data Result diagrams: 05/05/24 16:08 05/05/24 16:08 Lab Results 05/05/24 05/05/24 05/05/24 Range/Units 16:08 16:08 16:25 WBC 7.5 (3.8-10.6) k/uL RBC 4.52 (3.80-5.40) m/uL Hgb 14.3 (11.4-16.0) gm/dL Hct 42.9 (34.0-46.0) % MCV 95.0 (80.0-100.0) fL MCH 31.7 (25.0-35.0) pg MCHC 33.4 (31.0-37.0) g/dL RDW 11.9 (11.5-15.5) % Plt Count 310 (150-450) k/uL MPV 6.8 Neutrophils % 52 % Lymphocytes % 39 % Monocytes % 3 % Eosinophils % 3 % Basophils % 1 % Neutrophils # 3.9 (1.3-7.7) k/uL Lymphocytes # 2.9 (1.0-4.8) k/uL Monocytes # 0.2 (0-1.0) k/uL Eosinophils # 0.2 (0-0.7) k/uL Basophils # 0.0 (0-0.2) k/uL Sodium 137 (137-145) mmol/L Potassium 4.1 (3.5-5.1) mmol/L Chloride 102 (98-107) mmol/L Carbon Dioxide 24 (22-30) mmol/L Anion Gap 11 mmol/L BUN 18 H (7-17) mg/dL Creatinine 0.90 (0.52-1.04) mg/dL Est GFR (CKD-EPI)AfAm >90 (>60 ml/min/1.73 sqM) Est GFR (CKD-EPI)NonAf 86 (>60 ml/min/1.73 sqM) Glucose 123 H (74-99) mg/dL Lactic Ac Sepsis Rflx Plasma Lactic Acid Beau 2.2 H* (0.7-2.0) mmol/L Calcium 9.2 (8.4-10.2) mg/dL Total Bilirubin 0.5 (0.2-1.3) mg/dL AST 41 H (14-36) U/L ALT 59 H (4-34) U/L Alkaline Phosphatase 66 (38-126) U/L Total Protein 7.4 (6.3-8.2) g/dL Albumin 4.6 (3.5-5.0) g/dL Amylase 49 (30-110) U/L Lipase 70 (23-300) U/L HCG, Quant <2.4 mIU/mL Urine Color Urine Appearance (Clear) Urine pH (5.0-8.0) Ur Specific Gustavus (1.001-1.035) Urine Protein (Negative) Urine Glucose (UA) (Negative) Urine Ketones (Negative) Urine Blood (Negative) Urine Nitrite (Negative) Urine Bilirubin (Negative) Urine Urobilinogen (<2.0) mg/dL Ur Leukocyte Esterase (Negative) Urine RBC (0-5) /hpf Urine WBC (0-5) /hpf Ur Squamous Epith Cells (0-4) /hpf Urine Bacteria (None) /hpf Urine Mucus (None) /hpf Urine HCG, Qual (Not Detectd) 05/05/24 05/05/24 05/05/24 Range/Units 16:46 16:46 16:55 WBC (3.8-10.6) k/uL RBC (3.80-5.40) m/uL Hgb (11.4-16.0) gm/dL Hct (34.0-46.0) % MCV (80.0-100.0) fL MCH (25.0-35.0) pg MCHC (31.0-37.0) g/dL RDW (11.5-15.5) % Plt Count (150-450) k/uL MPV Neutrophils % % Lymphocytes % % Monocytes % % Eosinophils % % Basophils % % Neutrophils # (1.3-7.7) k/uL Lymphocytes # (1.0-4.8) k/uL Monocytes # (0-1.0) k/uL Eosinophils # (0-0.7) k/uL Basophils # (0-0.2) k/uL Sodium (137-145) mmol/L Potassium (3.5-5.1) mmol/L Chloride (98-107) mmol/L Carbon Dioxide (22-30) mmol/L Anion Gap mmol/L BUN (7-17) mg/dL Creatinine (0.52-1.04) mg/dL Est GFR (CKD-EPI)AfAm (>60 ml/min/1.73 sqM) Est GFR (CKD-EPI)NonAf (>60 ml/min/1.73 sqM) Glucose (74-99) mg/dL Lactic Ac Sepsis Rflx Y Plasma Lactic Acid Beau (0.7-2.0) mmol/L Calcium (8.4-10.2) mg/dL Total Bilirubin (0.2-1.3) mg/dL AST (14-36) U/L ALT (4-34) U/L Alkaline Phosphatase (38-126) U/L Total Protein (6.3-8.2) g/dL Albumin (3.5-5.0) g/dL Amylase (30-110) U/L Lipase (23-300) U/L HCG, Quant mIU/mL Urine Color Yellow Urine Appearance Cloudy H (Clear) Urine pH 5.5 (5.0-8.0) Ur Specific Gustavus 1.028 (1.001-1.035) Urine Protein Negative (Negative) Urine Glucose (UA) Negative (Negative) Urine Ketones Negative (Negative) Urine Blood Moderate H (Negative) Urine Nitrite Negative (Negative) Urine Bilirubin Negative (Negative) Urine Urobilinogen <2.0 (<2.0) mg/dL Ur Leukocyte Esterase Negative (Negative) Urine RBC 2 (0-5) /hpf Urine WBC 3 (0-5) /hpf Ur Squamous Epith Cells 4 (0-4) /hpf Urine Bacteria Occasional H (None) /hpf Urine Mucus Occasional H (None) /hpf Urine HCG, Qual Not Detected (Not Detectd) - Radiology Data Radiology results: report reviewed, image reviewed Disposition Clinical Impression: Abdominal pain Disposition: HOME SELF-CARE Condition: Stable Instructions (If sedation given, give patient instructions): Abdominal Pain (ED) Additional Instructions: I recommend close follow-up with STATISTICAL ENGINEER and PCP. Take OTC tylenol and inuprofen for pain control outpatient. Return to the ER for any new or worsening symptoms. Is patient prescribed a controlled substance at d/c from ED?: No Referrals: Tiffanie Graham MD [STAFF PHYSICIAN] - 1-2 days Fiordaliza Clement DO [Doctor of Osteopathic Medicine] - 1-2 days Time of Disposition: 00:00
[2024-05-05 16:39] LABS: Basophils % (A) 1 %; Eosinophils # (A) 0.2 k/uL (0-0.7); Eosinophils % (A) 3 %; HCT 42.9 % (34.0-46.0); HGB 14.3 gm/dL (11.4-16.0); Lymphocytes # (A) 2.9 k/uL (1.0-4.8); Lymphocytes % (A) 39 %; MCH 31.7 pg (25.0-35.0); MCHC 33.4 g/dL (31.0-37.0); Mean Platelet Volume 6.8; Monocytes # (A) 0.2 k/uL (0-1.0); Monocytes % (A) 3 %; Neutrophils # (A) 3.9 k/uL (1.3-7.7); Neutrophils % (A) 52 %; Platelet Count 310 k/uL (150-450); RBC 4.52 m/uL (3.80-5.40); RDW 11.9 % (11.5-15.5); WBC 7.5 k/uL (3.8-10.6)
[2024-05-05 16:52] LABS: ALT 59 U/L (4-34); AST 41 U/L (14-36); African American GFR (CKD) >90 (>60 ml/min/1.73 sqM); Albumin 4.6 g/dL (3.5-5.0); Alkaline Phosphatase 66 U/L (38-126); Amylase 49 U/L (30-110); Anion Gap 11 mmol/L; Blood Urea Nitrogen 18 mg/dL (7-17); Calcium 9.2 mg/dL (8.4-10.2); Carbon Dioxide 24 mmol/L (22-30); Chloride 102 mmol/L (98-107); Glucose 123 mg/dL (74-99); Lipase 70 U/L (23-300); Non-African American GFR(CKD) 86 (>60 ml/min/1.73 sqM); Potassium 4.1 mmol/L (3.5-5.1); Sodium 137 mmol/L (137-145); Total Bilirubin 0.5 mg/dL (0.2-1.3); Total Protein 7.4 g/dL (6.3-8.2)
[2024-05-05 17:04] LABS: Appearance,Urine Cloudy (Clear); Bacteria,Urine Occasional /hpf; Bilirubin,Urine Negative (Negative); Blood,Urine Moderate (Negative); Color,Urine Yellow; Glucose,Urine (UA) Negative (Negative); Ketones,Urine Negative (Negative); Leukocyte Esterase,Urine Negative (Negative); Mucus,Urine Occasional /hpf; Nitrite,Urine Negative (Negative); PH, Urine 5.5 (5.0-8.0); Protein,Urine Negative (Negative); RBC,Urine 2 /hpf (0-5); Specific Gravity,Urine 1.028 (1.001-1.035); Squamous Epithelial Cell,Urine 4 /hpf (0-4); Urobilinogen,Urine <2.0 mg/dL (<2.0); WBC,Urine 3 /hpf (0-5)
[2024-05-05 17:06] LABS: HCG,Quantitative Serum <2.4 mIU/mL
--- NOTE | 2024-05-05 17:13 | US ---
EXAMINATION TYPE: Transabdominal DATE OF EXAM: 05/05/2024 5:02 PM COMPARISON: Previous ultrasound study 07/14/2023. CLINICAL INDICATION: Female, 29 years old with history of pelvic pain poss preg; TECHNIQUE: Transabdominal (TA) with grayscale and color Doppler imaging including first trimester pre gnancy. FINDINGS: EXAM MEASUREMENTS: GESTATIONAL AGE / DATING Physician Established: Not yet established Dates by LMP: (6 weeks/4 days) EDC: 12/25/2024 Dates by First Scan: No previous this is first scan Dates by Current Scan for: No IUP seen at this time MATERNAL ANATOMY Uterus: 7.2 x 4.5 x 3.6 cm Right Ovary: 2.7 x 2.2 x 2.4 cm Left Ovary: 3.2 x 1.9 x 2.1 cm Post CDS / Adnexa: no free fluid Presence of free fluid: no Presence of corpus luteal cyst: no Presence of subchorionic bleed: N/A GESTATION / SURVEY IUP: No IUP seen at this time Date of LMP: 03/20/2024, [id number] Beta HcG (if available): Post ultrasound- Urine HCG not detected IMPRESSION: No evidence of intrauterine . Recommend correlation with beta-hCG values. [facility], , 05/05/2024 5:11 PM
[2024-05-05] MEDS: SODIUM CHLORIDE 0.9% 1,000 ML IV ONE (18:55)
[2024-05-05] MEDS: KETOROLAC 15 MG/ML 1 ML VIAL IVP STA (18:55)
[2024-05-05 19:07] VITALS: BP 138/85; PULSE 99; TEMP 98.1
[2024-05-05] MEDS: MORPHINE SULFATE 2 MG/ML SYRINGE IM ONE (19:08)
== END 2024-05-05 19:14 | disposition home or self-care (01) ==
LOC: EC 15:30
DX: R10.32 Left lower quadrant pain (principal)
CPT/HCPCS: 36415; 80053; 82150; 83605; 83690; 85025; 81001; 81025; 84702; 76801; 99284; 96372; J2270

== ENCOUNTER 2024-05-29 12:48 | Emergency (ER) | payer MEDICAID, OTHER ==
--- NOTE | 2024-05-29 13:11 | ED ---
Abdominal Pain HPI - General Chief Complaint: Urogenital Stated Complaint: L flank pain Time Seen by Provider: 05/29/24 13:03 Source: patient, RN notes reviewed Mode of arrival: ambulatory Limitations: no limitations - History of Present Illness Initial Comments: This is a 29-year-old female who presents to the emergency department for abdominal pain. States that over the last couple of days she has had pain in the left flank radiating into the left groin region. Pain seems to be getting worse near the groin. She has also noticed specks of blood in her urine and has burning with urination. States that it feels similar to prior kidney stones, ho wever she also states that she had a faint positive test. She has associated nausea. Her pain medication at home is not effectively managing her symptoms. MD Complaint: abdominal pain, flank pain - Related Data Home Medications Medication Instructions Recorded Confirmed Albuterol Nebulized [Ventolin 2.5 mg INHALATION RT-QID PRN 05/18/22 12/13/23 Nebulized] Cholecalciferol [Vitamin D3 (25 25 mcg PO DAILY 04/25/23 12/13/23 Mcg = 1000 Iu)] Omeprazole 40 mg PO DAILY@1600 05/13/23 12/13/23 Ashwagandha 700 mg PO DAILY 11/24/23 12/13/23 Desvenlafaxine Succinate [Pristiq 50 mg PO DAILY 11/24/23 12/13/23 ER] Famotidine [Pepcid] 20 mg PO DAILY PRN 11/24/23 12/13/23 Nortriptyline [Pamelor] 50 mg PO DAILY 11/24/23 12/13/23 diazePAM [Valium] 5 mg PO BID 11/25/23 12/13/23 Brexpiprazole [Rexulti] 1 mg PO DAILY 12/13/23 12/13/23 Cyclobenzaprine [Flexeril] 5 mg PO TID PRN 12/13/23 12/13/23 Previous Rx's Medication Instructions Recorded Montelukast [Singulair] 10 mg PO DAILY #20 tab 08/03/23 EPINEPHrine (Auto Inject) [Epipen] 0.3 mg IM ONCE PRN #1 each 11/17/23 diphenhydrAMINE [Benadryl] 25 mg PO TID PRN #21 capsule 11/17/23 Levothyroxine Sodium 150 mcg PO DAILY #30 tab 11/22/23 Aspirin 81 mg PO DAILY #30 tab 11/25/23 Ibuprofen [Motrin] 800 mg PO Q8H #21 tab 11/25/23 Metoprolol Succinate [Metoprolol See Rx Instructions .ROUTE 12/14/23 Succinate ER] .COMPLEX 30 Days #90 tab Tamsulosin [Flomax] 0.4 mg PO DAILY #10 cap 12/24/23 Phenylephrine HCl/[place] Butter 1 supp RECTAL QID PRN #24 12/29/23 [Preparation H Suppository] suppositor Orphenadrine [Norflex] 100 mg PO Q12H PRN #30 tab 02/16/24 Azithromycin [Zithromax] 250 mg PO DIRECTED 5 Days #6 tab 02/28/24 predniSONE 50 mg PO DAILY 5 Days #5 tab 02/28/24 Nitrofurantoin Monohyd/M-Cryst 100 mg PO Q12HR 5 Days #10 cap 05/29/24 [Macrobid] Allergies Allergy/AdvReac Type Severity Reaction Status Date / Time amoxicillin Allergy Rash/Hives Verified 05/29/24 12:57 banana Allergy Anaphylaxis Verified 05/29/24 12:57 nickel Allergy Rash/Hives Verified 05/29/24 12:57 sulfamethoxazole Allergy Rash/Hives Verified 05/29/24 12:57 [From Septra] trimethoprim [From Octra] Allergy Rash/Hives Verified 05/29/24 12:57 corn AdvReac Diarrhea Verified 05/29/24 12:57 Review of Systems ROS Statement: Those systems with pertinent positive or pertinent negative responses have been documented in the HPI. ROS Other: All systems not noted in ROS Statement are negative. 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 clothes marker, History of Any Multi-Drug Resistant Organisms: None Reported Past Surgical History: Appendectomy, Section, Cholecystectomy Additional Past Surgical History / Comment(s): thyroidectomy 09/2017, Laparoscopic exam w/ cautery endometriosis 2012 Past Anesthesia/Blood Transfusion Reactions: No Reported Reaction Past Psychological History: Anxiety, Depression Smoking Status: Never smoker Past Alcohol Use History: Occasional, Rare Past Drug Use History: None Reported - Past Family History Mother Family Medical History: Asthma Father Family Medical History: Coronary Artery Disease (CAD), CVA/TIA, Diabetes Mellitus Brother(s) Family Medical History: Asthma General Exam Limitations: no limitations General appearance: alert, in no apparent distress Head exam: Present: atraumatic, normocephalic, normal inspection Respiratory exam: Present: normal lung sounds bilaterally. Absent: respiratory distress, wheezes, rales, rhonchi, stridor Cardiovascular Exam: Present: normal rhythm, tachycardia GI/Abdominal exam: Present: soft, tenderness (LLQ), normal bowel sounds. Absent: distended Back exam: Present: CVA tenderness (L). Absent: CVA tenderness (R) Neurological exam: Present: alert, oriented X3, CN II-XII intact Psychiatric exam: Present: normal affect, normal mood Skin exam: Present: warm, dry, intact, normal color. Absent: rash Course Vital Signs 05/29/24 12:55 Pulse Rate 124 H Respiratory 18 Rate Blood Pressure 129/84 O2 Sat by Pulse 98 Oximetry Medical Decision Making - Medical Decision Making This is a 29 year old female who presents to the emergency department for abdominal pain. Was pt. sent in by a medical professional or institution? @ -No Did you speak to anyone other than the patient for history? @ -No Did you review nursing and triage notes? @ -Yes, and I agree, it is accurate with regards to the patient's symptoms. Were old charts reviewed? @ -No Differential Diagnosis? @ -Differential Abdominal Pain Women: Appendicitis, Cholecystitis, diverticulosis, ischemic bowel, pancreatitis, hepatitis, UTI, gastroenteritis, AAA, incarcerated hernia, bowel obstruction, constipation, inflammatory bowel, hepatitis, peptic ulcer disease, splenic infarction, perforated viscus, vulvitis, ovarian torsion, PID, kidney stone, placenta abruption, this is not meant to be an all-inclusive list EKG interpreted by me (3pts min.)? @ -Not obtained X-rays interpreted by me (1pt min.)? @ -Not obtained CT interpreted by me (1pt min.)? @ -Not obtained U/S interpreted by me (1pt. min.)? @ -Transvaginal ultrasound obtained. My interpretation identifies no evidence of an ovarian torsion. What testing was considered but not performed? (CT, X-rays, U/S, labs)? Why? @ -None What meds were considered but not given? Why? @ -None Did you discuss the management of the patient with other professionals? @ -No Did you reconcile home meds? @ -No Was smoking cessation discussed for >3mins.? @ -No Was critical care preformed (if so, how long)? @ -No Were there social determinants of health that impacted care today? How? (Homelessness, low income, unemployed, alcoholism, drug addiction, transportation, low edu. Level, literacy, decrease access to med. care, custodial, rehab)? @ -No Was there de-escalation of care discussed even if they declined? (Discuss DNR or withdrawal of care, Hospice)? @ -No What co-morbidities impacted this encounter? (DM, HTN, Smoking, COPD, CAD, Cancer, CVA, Hep., AIDS, mental health diagnosis, sleep apnea, morbid obesity)? @ -None Was patient admitted / discharged? @ -Discharged. Lab work demonstrates mildly elevated LFTs, which are similar when compared with prior. Lab work otherwise unremarkable. HCG negative. Urinalysis suggestive of infection with many bacteria and elevated WBCs, this did however have some contamination. Urine sent for culture. 1 g of ceftriaxone administered in the emergency department. Transvaginal ultrasound obtained revealing no acute process. Macrobid prescribed for potential UTI. Pain was treated in the emergency department and patient was discharged home in stable condition. Case discussed with ED attending Dr. Peterson. Return precautions reviewed in depth, the patient is instructed to return to the emergency department with any new, worsening, or concerning symptoms. Patient verbalized understanding. Undiagnosed new problem with uncertain prognosis? @ -None Drug Therapy requiring intensive monitoring for toxicity (Heparin, Nitro, Insulin, Cardizem)? @ -None Were any procedures done? @ -None Diagnosis/symptom? @ -Abdominal pain, UTI Acute, or Chronic, or Acute on Chronic? @ -Acute Uncomplicated (without systemic symptoms) or Complicated (systemic symptoms)? @ -Complicated Side effects of treatment? @ -None Exacerbation, Progression, or Severe Exacerbation] @ -Not applicable Poses a threat to life or bodily function? @ -No - Lab Data Result diagrams: 05/29/24 15:24 05/29/24 14:13 Lab Results 05/29/24 05/29/24 05/29/24 Range/Units 14:13 14:13 14:58 WBC (3.8-10.6) k/uL RBC (3.80-5.40) m/uL Hgb (11.4-16.0) gm/dL Hct (34.0-46.0) % MCV (80.0-100.0) fL MCH (25.0-35.0) pg MCHC (31.0-37.0) g/dL RDW (11.5-15.5) % Plt Count (150-450) k/uL MPV Neutrophils % % Lymphocytes % % Monocytes % % Eosinophils % % Basophils % % Neutrophils # (1.3-7.7) k/uL Lymphocytes # (1.0-4.8) k/uL Monocytes # (0-1.0) k/uL Eosinophils # (0-0.7) k/uL Basophils # (0-0.2) k/uL Sodium 134 L (137-145) mmol/L Potassium 4.8 (3.5-5.1) mmol/L Chloride 101 (98-107) mmol/L Carbon Dioxide 24 (22-30) mmol/L Anion Gap 9 mmol/L BUN 18 H (7-17) mg/dL Creatinine 0.61 (0.52-1.04) mg/dL Est GFR (CKD-EPI)AfAm >90 (>60 ml/min/1.73 sqM) Est GFR (CKD-EPI)NonAf >90 (>60 ml/min/1.73 sqM) Glucose 103 H (74-99) mg/dL Plasma Lactic Acid Beau 1.9 (0.7-2.0) mmol/L Calcium 9.2 (8.4-10.2) mg/dL Total Bilirubin 0.6 (0.2-1.3) mg/dL AST 53 H (14-36) U/L ALT 62 H (4-34) U/L Alkaline Phosphatase 53 (38-126) U/L Total Protein 7.3 (6.3-8.2) g/dL Albumin 4.5 (3.5-5.0) g/dL Lipase 43 (23-300) U/L HCG, Quant <2.4 mIU/mL Urine Color Colorless Urine Appearance Cloudy H (Clear) Urine pH 5.5 (5.0-8.0) Ur Specific Point 1.015 (1.001-1.035) Urine Protein Negative (Negative) Urine Glucose (UA) Negative (Negative) Urine Ketones Negative (Negative) Urine Blood Negative (Negative) Urine Nitrite Negative (Negative) Urine Bilirubin Negative (Negative) Urine Urobilinogen <2.0 (<2.0) mg/dL Ur Leukocyte Esterase Negative (Negative) Urine RBC 1 (0-5) /hpf Urine WBC 10 H (0-5) /hpf Ur Squamous Epith Cells 7 H (0-4) /hpf Urine Bacteria Many H (None) /hpf Urine Mucus Rare H (None) /hpf 05/29/24 Range/Units 15:24 WBC 6.1 (3.8-10.6) k/uL RBC 4.15 (3.80-5.40) m/uL Hgb 13.1 (11.4-16.0) gm/dL Hct 38.5 (34.0-46.0) % MCV 92.7 (80.0-100.0) fL MCH 31.5 (25.0-35.0) pg MCHC 34.0 (31.0-37.0) g/dL RDW 12.7 (11.5-15.5) % Plt Count 248 (150-450) k/uL MPV 7.2 Neutrophils % 50 % Lymphocytes % 38 % Monocytes % 5 % Eosinophils % 2 % Basophils % 1 % Neutrophils # 3.1 (1.3-7.7) k/uL Lymphocytes # 2.3 (1.0-4.8) k/uL Monocytes # 0.3 (0-1.0) k/uL Eosinophils # 0.1 (0-0.7) k/uL Basophils # 0.0 (0-0.2) k/uL Sodium (137-145) mmol/L Potassium (3.5-5.1) mmol/L Chloride (98-107) mmol/L Carbon Dioxide (22-30) mmol/L Anion Gap mmol/L BUN (7-17) mg/dL Creatinine (0.52-1.04) mg/dL Est GFR (CKD-EPI)AfAm (>60 ml/min/1.73 sqM) Est GFR (CKD-EPI)NonAf (>60 ml/min/1.73 sqM) Glucose (74-99) mg/dL Plasma Lactic Acid Beau (0.7-2.0) mmol/L Calcium (8.4-10.2) mg/dL Total Bilirubin (0.2-1.3) mg/dL AST (14-36) U/L ALT (4-34) U/L Alkaline Phosphatase (38-126) U/L Total Protein (6.3-8.2) g/dL Albumin (3.5-5.0) g/dL Lipase (23-300) U/L HCG, Quant mIU/mL Urine Color Urine Appearance (Clear) Urine pH (5.0-8.0) Ur Specific Point (1.001-1.035) Urine Protein (Negative) Urine Glucose (UA) (Negative) Urine Ketones (Negative) Urine Blood (Negative) Urine Nitrite (Negative) Urine Bilirubin (Negative) Urine Urobilinogen (<2.0) mg/dL Ur Leukocyte Esterase (Negative) Urine RBC (0-5) /hpf Urine WBC (0-5) /hpf Ur Squamous Epith Cells (0-4) /hpf Urine Bacteria (None) /hpf Urine Mucus (None) /hpf - Radiology Data Radiology results: report reviewed, image reviewed Disposition Clinical Impression: Abdominal pain, UTI (urinary tract infection) Disposition: HOME SELF-CARE Instructions (If sedation given, give patient instructions): Abdominal Pain (ED) Additional Instructions: Return to the emergency department with any new, worsening, or concerning symptoms. Take the antibiotic as prescribed for 5 days. Follow up with your primary care provider in 1-2 days. Prescriptions: Nitrofurantoin Monohyd/M-Cryst [Macrobid] 100 mg PO Q12HR 5 Days #10 cap Is patient prescribed a controlled substance at d/c from ED?: No Referrals: George Rosario DO [Primary Care Provider] - 1-2 days Time of Disposition: 16:40
[2024-05-29] MEDS: HYDROmorphone 1 MG/ML 1 ML SYRINGE IVP STA ×3 (14:24→17:37)
[2024-05-29] MEDS: SODIUM CHLORIDE 0.9% 1,000 ML IV ONE (14:26)
[2024-05-29] MEDS: ONDANSETRON 4 MG/2 ML VIAL IVP STA (14:26)
[2024-05-29 14:49] LABS: ALT 62 U/L (4-34); AST 53 U/L (14-36); African American GFR (CKD) >90 (>60 ml/min/1.73 sqM); Albumin 4.5 g/dL (3.5-5.0); Alkaline Phosphatase 53 U/L (38-126); Anion Gap 9 mmol/L; Blood Urea Nitrogen 18 mg/dL (7-17); Calcium 9.2 mg/dL (8.4-10.2); Carbon Dioxide 24 mmol/L (22-30); Chloride 101 mmol/L (98-107); Glucose 103 mg/dL (74-99); Lipase 43 U/L (23-300); Non-African American GFR(CKD) >90 (>60 ml/min/1.73 sqM); Potassium 4.8 mmol/L (3.5-5.1); Sodium 134 mmol/L (137-145); Total Bilirubin 0.6 mg/dL (0.2-1.3); Total Protein 7.3 g/dL (6.3-8.2)
[2024-05-29 15:03] LABS: HCG,Quantitative Serum <2.4 mIU/mL
[2024-05-29 15:10] LABS: Appearance,Urine Cloudy (Clear); Bacteria,Urine Many /hpf; Bilirubin,Urine Negative (Negative); Blood,Urine Negative (Negative); Color,Urine Colorless; Glucose,Urine (UA) Negative (Negative); Ketones,Urine Negative (Negative); Leukocyte Esterase,Urine Negative (Negative); Mucus,Urine Rare /hpf; Nitrite,Urine Negative (Negative); PH, Urine 5.5 (5.0-8.0); Protein,Urine Negative (Negative); RBC,Urine 1 /hpf (0-5); Specific Gravity,Urine 1.015 (1.001-1.035); Squamous Epithelial Cell,Urine 7 /hpf (0-4); Urobilinogen,Urine <2.0 mg/dL (<2.0); WBC,Urine 10 /hpf (0-5)
[2024-05-29] MEDS: cefTRIAXone IN SWFI 1,000 MG/10 ML SYRINGE IVP STA (15:48)
[2024-05-29] MEDS: KETOROLAC 15 MG/ML 1 ML VIAL IVP STA ×2 (15:48→17:53)
[2024-05-29 16:16] LABS: Basophils % (A) 1 %; Eosinophils # (A) 0.1 k/uL (0-0.7); Eosinophils % (A) 2 %; HCT 38.5 % (34.0-46.0); HGB 13.1 gm/dL (11.4-16.0); Lymphocytes # (A) 2.3 k/uL (1.0-4.8); Lymphocytes % (A) 38 %; MCH 31.5 pg (25.0-35.0); MCV 92.7 fL (80.0-100.0); Mean Platelet Volume 7.2; Monocytes # (A) 0.3 k/uL (0-1.0); Monocytes % (A) 5 %; Neutrophils # (A) 3.1 k/uL (1.3-7.7); Neutrophils % (A) 50 %; Platelet Count 248 k/uL (150-450); RBC 4.15 m/uL (3.80-5.40); RDW 12.7 % (11.5-15.5); WBC 6.1 k/uL (3.8-10.6)
--- NOTE | 2024-05-29 16:35 | US ---
EXAMINATION TYPE: US transvaginal DATE OF EXAM: 05/29/2024 COMPARISON: NONE CLINICAL INDICATION: Female, 29 years old with history of Left sided pelvic pain; left sided pain TECHNIQUE: TV. Transvaginal sonographic images FINDINGS: Date of LMP: 03/20/2024 - they are irregular EXAM MEASUREMENTS: Uterus: 8.8 x 4.5 x 4.3 cm Endometrial Stripe: 1.1 cm Right Ovary: 3.1 x 2.1 x 2.3 cm Left Ovary: 3.0 x 2.7 x 2.0 cm 1. Uterus: Anteverted wnl 2. Endometrium: wnl 3. Right Ovary: wnl 4. Left Ovary: 1.7 x 1.2 x 1.7cm dominate follicle Spectral, color and waveform doppler imaging shows good arterial and venous flow within the ovaries ; there is no evidence for ovarian torsion. 5. Bilateral Adnexa: wnl 6. Posterior cul-de-sac: wnl IMPRESSION: No evidence for acute process. Appropriate arterial and venous spectral waveforms to the ovaries. [facility], , 05/29/2024 4:33 PM
[2024-05-29] MEDS: ORPHENADRINE 30 MG/ML 2 ML VIAL IVP STA (17:39)
[2024-05-29 17:49] VITALS: BP 132/93; PULSE 113; RESP 16
== END 2024-05-29 16:55 | disposition home or self-care (01) ==
LOC: EC 12:48
DX: R10.32 Left lower quadrant pain (principal); N39.0 Urinary tract infection, site not specified; Z88.0 Allergy status to penicillin; Z88.1 Allergy status to other antibiotic agents; Z88.2 Allergy status to sulfonamides; Z91.018 Allergy to other foods; Z91.048 Other nonmedicinal substance allergy status
CPT/HCPCS: 36415; 80053; 83605; 83690; 85025; 81001; 84702; 87086; 93975; 76830; 99284; 96374; 96376; 96361; 96375; J2360; J2405; J0696; J1171; J1885

== ENCOUNTER 2024-06-26 21:22 | Emergency (ER) | payer OTHER ==
[2024-06-26] MEDS: DEXAMETHASONE SOD PHOSPHATE 10 MG/ML 1 ML VIAL IVP STA (22:26)
[2024-06-26] MEDS: KETOROLAC 15 MG/ML 1 ML VIAL IVP STA (22:26)
[2024-06-26] MEDS: HYDROmorphone 1 MG/ML 1 ML SYRINGE IVP STA (22:26)
[2024-06-26] MEDS: LIDOCAINE 4% PATCH TOPICAL ONE (22:26)
--- NOTE | 2024-06-26 23:16 | ED ---
Back Pain HPI - General Chief Complaint: Back Pain/Injury Stated Complaint: Severe Lower Back Pain Time Seen by Provider: 06/26/24 22:00 Source: patient, RN notes reviewed Mode of arrival: ambulatory Limitations: no limitations - History of Present Illness Initial Comments: This is a 29-year-old female who presents to the emergency department for low back pain. Patient states that when she woke up this morning she developed severe pain in the lower back. States that this occurred across the whole back. Denies any known injuries, but is unsure if it may be related to activity at work. Pain is much worse if she tries to move. States that the pain makes it difficult to ambulate. Denies any radiation of pain. MD Complaint: back pain - Related Data Home Medications Medication Instructions Recorded Confirmed Albuterol Nebulized [Ventolin 2.5 mg INHALATION RT-QID PRN 05/18/22 12/13/23 Nebulized] Cholecalciferol [Vitamin D3 (25 25 mcg PO DAILY 04/25/23 12/13/23 Mcg = 1000 Iu)] Omeprazole 40 mg PO DAILY@1600 05/13/23 12/13/23 Ashwagandha 700 mg PO DAILY 11/24/23 12/13/23 Desvenlafaxine Succinate [Pristiq 50 mg PO DAILY 11/24/23 12/13/23 ER] Famotidine [Pepcid] 20 mg PO DAILY PRN 11/24/23 12/13/23 Nortriptyline [Pamelor] 50 mg PO DAILY 11/24/23 12/13/23 diazePAM [Valium] 5 mg PO BID 11/25/23 12/13/23 Brexpiprazole [Rexulti] 1 mg PO DAILY 12/13/23 12/13/23 Cyclobenzaprine [Flexeril] 5 mg PO TID PRN 12/13/23 12/13/23 Previous Rx's Medication Instructions Recorded Montelukast [Singulair] 10 mg PO DAILY #20 tab 08/03/23 EPINEPHrine (Auto Inject) [Epipen] 0.3 mg IM ONCE PRN #1 each 11/17/23 diphenhydrAMINE [Benadryl] 25 mg PO TID PRN #21 capsule 11/17/23 Levothyroxine Sodium 150 mcg PO DAILY #30 tab 11/22/23 Aspirin 81 mg PO DAILY #30 tab 11/25/23 Ibuprofen [Motrin] 800 mg PO Q8H #21 tab 11/25/23 Metoprolol Succinate [Metoprolol See Rx Instructions .ROUTE 12/14/23 Succinate ER] .COMPLEX 30 Days #90 tab Tamsulosin [Flomax] 0.4 mg PO DAILY #10 cap 12/24/23 Phenylephrine HCl/[place] Butter 1 supp RECTAL QID PRN #24 12/29/23 [Preparation H Suppository] suppositor Orphenadrine [Norflex] 100 mg PO Q12H PRN #30 tab 02/16/24 Azithromycin [Zithromax] 250 mg PO DIRECTED 5 Days #6 tab 02/28/24 predniSONE 50 mg PO DAILY 5 Days #5 tab 02/28/24 Nitrofurantoin Monohyd/M-Cryst 100 mg PO Q12HR 5 Days #10 cap 05/29/24 [Macrobid] Lidocaine 5% Patch [Lidoderm 5% 1 patch TOPICAL DAILY PRN #30 patch 06/27/24 Patch] tiZANidine [Zanaflex] 2 mg PO Q8HR PRN #30 tablet 06/27/24 Allergies Allergy/AdvReac Type Severity Reaction Status Date / Time amoxicillin Allergy Rash/Hives Verified 05/29/24 12:57 banana Allergy Anaphylaxis Verified 05/29/24 12:57 nickel Allergy Rash/Hives Verified 05/29/24 12:57 sulfamethoxazole Allergy Rash/Hives Verified 05/29/24 12:57 [From Septra] trimethoprim [From Octra] Allergy Rash/Hives Verified 05/29/24 12:57 corn AdvReac Diarrhea Verified 05/29/24 12:57 Review of Systems ROS Statement: Those systems with pertinent positive or pertinent negative responses have been documented in the HPI. ROS Other: All systems not noted in ROS Statement are negative. 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, History of Any Multi-Drug Resistant Organisms: None Reported Past Surgical History: Appendectomy, Section, Cholecystectomy Additional Past Surgical History / Comment(s): thyroidectomy 09/2017, L aparoscopic exam w/ cautery endometriosis 2013 Past Anesthesia/Blood Transfusion Reactions: No Reported Reaction Past Psychological History: Anxiety, Depression Smoking Status: Never smoker Past Alcohol Use History: Occasional, Rare Past Drug Use History: None Reported - Past Family History Mother Family Medical History: Asthma Father Family Medical History: Coronary Artery Disease (CAD), CVA/TIA, Diabetes Mellitus Brother(s) Family Medical History: Asthma General Exam Limitations: no limitations General appearance: alert, in distress Head exam: Present: atraumatic, normocephalic, normal inspection Respiratory exam: Present: normal lung sounds bilaterally. Absent: respiratory distress, wheezes, rales, rhonchi, stridor Cardiovascular Exam: Present: regular rate, normal rhythm Back exam: Present: other (Tenderness to palpation over the lower lumbar spine) Neurological exam: Present: alert, oriented X3, CN II-XII intact Psychiatric exam: Present: normal affect, normal mood Skin exam: Present: warm, dry, intact, normal color. Absent: rash Course Vital Signs 06/26/24 21:49 Temperature 98.0 F Pulse Rate 108 H Respiratory 18 Rate Blood Pressure 135/84 O2 Sat by Pulse 99 Oximetry Medical Decision Making - Medical Decision Making This is a 29-year-old female who presents to the emergency department for low back pain. Was pt. sent in by a medical professional or institution? @ -No Did you speak to anyone other than the patient for history? @ -No Did you review nursing and triage notes? @ -Yes, and I agree, it is accurate with regards to the patient's symptoms. Were old charts reviewed? @ -No Differential Diagnosis? @ -Differential Back Pain: Strain, zoster, cauda equina syndrome, epidural abscess, vertebral osteomyelitis, discitis, fracture, subluxation, disc herniation, DJD, spinal stenosis, dissection, AAA, pancreatitis, peptic ulcer disease, pyelonephritis, kidney stone, this is not meant to be an all-inclusive list. EKG interpreted by me (3pts min.)? @ -[none] EKG interpreted by me demonstrating the following: X-rays interpreted by me (1pt min.)? @ -[none] CT interpreted by me (1pt min.)? @ -[none] U/S interpreted by me (1pt. min.)? @ -[none] What testing was considered but not performed? (CT, X-rays, U/S, labs)? Why? @ [CT, X-rays, U/S, labs? Why?] What meds were considered but not given? Why? @ -[none] Did you discuss the management of the patient with other professionals? @ -No Did you reconcile home meds? @ -No Was smoking cessation discussed for >3mins.? @ -No Was critical care preformed (if so, how long)? @ -No Were there social determinants of health that impacted care today? How? (Homelessness, low income, unemployed, alcoholism, drug addiction, transportation, low edu. Level, literacy, decrease access to med. care, long-term, rehab)? @ -No Was there de-escalation of care discussed even if they declined? (Discuss DNR or withdrawal of care, Hospice)? @ -No What co-morbidities impacted this encounter? (DM, HTN, Smoking, COPD, CAD, Cancer, CVA, Hep., AIDS, mental health diagnosis, sleep apnea, morbid obesity)? @ -[DM, HTN, Smoking, COPD, CAD, Cancer, CVA, Hep., AIDS, mental health diagnosis, sleep apnea, morbid obesity?] Was patient admitted / discharged? @ -[hospital course] Undiagnosed new problem with uncertain prognosis? @ -None Drug Therapy requiring intensive monitoring for toxicity (Heparin, Nitro, Insulin, Cardizem)? @ -None Were any procedures done? @ -None Diagnosis/symptom? @ -[default] Acute, or Chronic, or Acute on Chronic? @ -[default] Uncomplicated (without systemic symptoms) or Complicated (systemic symptoms)? @ -[default] Side effects of treatment? @ -[none] Exacerbation, Progression, or Severe Exacerbation] @ -Not applicable Poses a threat to life or bodily function? @ -[no] - Lab Data Lab Results 06/26/24 Range/Units 22:32 HCG, Qual Not Detected - Radiology Data Radiology results: report reviewed, image reviewed Disposition Clinical Impression: Strain of lumbar region Disposition: HOME SELF-CARE Instructions (If sedation given, give patient instructions): Acute Low Back Pain (ED), Low Back Strain (ED) Additional Instructions: Return to the emergency department with any new, worsening, or concerning symptoms. Start taking the tizanidine as 2 mg every 6-8 hours as needed for pain. You can increase the dose by 2 to 4 mg each dose every 1 to 4 days. Do not take more than 36 mg/day. You can also apply the lidocaine patches daily. Follow-up with orthopedic spine as listed below for further evaluation of ongoing symptoms. Prescriptions: Lidocaine 5% Patch [Lidoderm 5% Patch] 1 patch TOPICAL DAILY PRN #30 patch PRN Reason: Pain tiZANidine [Zanaflex] 2 mg PO Q8HR PRN #30 tablet PRN Reason: Pain Is patient prescribed a controlled substance at d/c from ED?: No Referrals: George Rosario DO [Primary Care Provider] - 1-2 days Yimi Peña DO [Doctor of Osteopathic Medicine] - 1-2 days Time of Disposition: 12:39
--- NOTE | 2024-06-26 23:58 | XR ---
EXAMINATION TYPE: XR lumbar spine 2 or 3V DATE OF EXAM: 06/26/2024 11:41 PM COMPARISON: 08/05/2016 CLINICAL INDICATION: Female, 29 years old with history of Pain; PHH, pain TECHNIQUE: XR lumbar spine 2 or 3V - Frontal, lateral and coned in L5-S1 lateral views of the spine. FINDINGS: No evidence of any acute osseous pathology. No evidence of loss of vertebral body height i s seen. There is normal alignment of the lumbar vertebral bodies. No significant degeneration changes throughout the spine. Right upper quadrant cholecystectomy. Surgical clips in the pelvis. IMPRESSION: 1. No acute fracture. 2. Mild multilevel disc degeneration. [facility], , 06/26/2024 11:55 PM
[2024-06-27] MEDS: HYDROmorphone 1 MG/ML 1 ML SYRINGE IVP STA (00:29)
[2024-06-27] MEDS: MAG HYDROX/AL HYDROX/SIMETH 30 ML CUP PO STA (00:30)
[2024-06-27] MEDS: LIDOCAINE VISCOUS 2% 15 ML CUP PO ONE (00:30)
[2024-06-27] MEDS: HYOSCYAMINE ELIXIR 250 MCG/10 ML BTL PO STA (00:30)
[2024-06-27] MEDS: ORPHENADRINE 30 MG/ML 2 ML VIAL IVP STA (00:36)
[2024-06-27] MEDS: tiZANidine 4 MG TAB PO STA (00:51)
[2024-06-27 00:55] VITALS: BP 128/84; PULSE 96; RESP 17; TEMP 98.1
== END 2024-06-27 00:54 | disposition home or self-care (01) ==
LOC: EC 21:22
DX: S39.012A Strain of muscle, fascia and tendon of lower back, initial encounter (principal); Z88.0 Allergy status to penicillin; Z91.048 Other nonmedicinal substance allergy status; Z88.2 Allergy status to sulfonamides; Z88.1 Allergy status to other antibiotic agents; Z91.018 Allergy to other foods; X58.XXXA Exposure to other specified factors, initial encounter
CPT/HCPCS: 36415; 84703; 72100; 99284; 96374; 96375 ×3; 96376; J1100; J1171; J1885